=== PATIENT | female | born 1945 | race Caucasian/White ===

== ENCOUNTER 2016-05-11 12:48 | Outpatient (RCR) | payer MEDICARE, OTHER ==
[~2016-05-11 12:48] MED LIST: AGM875T PO; ALPR0.2550 PO; ASP81TEC PO; CLOP75TA PO; CYCL-97 PO; DILT120T11 PO; DILT240C PO; DILT60TA PO; DILT90TA PO; LEVO500T69 PO; METO-272 PO; MTF500T PO; NF-LOVAZAC PO; OXYC-272 PO; RANI300T4 PO; TICA90TA PO
--- OUTSIDE RECORDS SUMMARY | 2016-05-11 12:51 | XMS REPORT | Continuity of Care Document ---
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 If you do not see the information that you expected, contact Release of Information in the Health Information Management department at [phone] for further assistance in locating additional records.[facility] Active Allergies and Adverse Reactions Allergen Noted Date Severity Reactions Comments Codeine 03/03/2012 CHEST TIGHTNESS Lexapro 03/03/2012 HIVES Lipitor 03/03/2012 JOINT PAIN Niaspan Starter Pack 03/03/2012 RASH Tramadol 03/03/2012 NAUSEA AND VOMITING Current Medications Prescription Sig. Disp. Refills Start End Date Status Date diltiazem SA (+) (TAZTIA Take 240 mg by mouth Active XT) 240 mg capsule after meals and at bedtime as needed. ranitidine(+) (ZANTAC) Take 300 mg by mouth Active 300 mg tablet daily. lisinopril (PRINIVIL; Take 20 mg by mouth Active ZESTRIL) 20 mg tablet daily. metoprolol XL (TOPROL XL) Take 25 mg by mouth Active 25 mg tablet daily. prasugrel (EFFIENT) 10 mg Take 10 mg by mouth Active Tab tablet daily. aspirin EC 81 mg tablet Take 81 mg by mouth Active daily. ALPRAZolam (XANAX) 0.5 mg Take 0.5 mg by mouth at Active tablet bedtime as needed. HYDROcodone-acetaminophen Take 1 Tab by mouth every Active (+) (LORTAB) 7.5-500 mg 4 hours as needed. tablet acetaminophen (TYLENOL) Take 500 mg by mouth Active 500 mg tablet every 6 hours as needed. simvastatin (ZOCOR) 20 mg Take 20 mg by mouth at Active tablet bedtime daily. losartan/hydrochlorothiaz Take 100 mg by mouth Active patricia (HYZAAR) 100/12.5 mg daily. tablet 100 mg amLODIPine (NORVASC) 10 Take 10 mg by mouth Active mg tablet daily. bisoprolol/hydrochlorothi Take 0.25 mg by mouth Active azide (ZIAC) 5/6.25 mg daily. tablet 0.25 mg Active Problems Problem Noted Date Difficulty voiding 03/03/2012 Last Assessment & Plan: - Pt empties well, PVR 0 in clinic today. - Will plan for VUDS and Cystoscopy to evaluate voiding dysfunction Renal artery stenosis (HCC) 03/03/2012 Social History Tobacco Use Types Packs/Day Years Used Date Never Assessed Last Filed Vital Signs Vital Sign Reading Time Taken Blood Pressure 152/80 03/03/2012 10:35 AM CDT Pulse 86 03/03/2012 10:35 AM CDT Temperature - - Respiratory Rate - - Height 1.575 m (5' 2") 03/03/2012 10:35 AM CDT Weight 60.328 kg (133 lb) 03/03/2012 10:35 AM CDT Body Mass Index 24.32 03/03/2012 10:35 AM CDT Oxygen Saturation - - Plan of Care Health Maintenance Due Date Last Done Comments Physical (Comprehensive) 1951 Exam Pertussis Vaccine 1955 Tetanus Vaccine 1961 Breast Cancer Screening 1984 Colorectal Cancer 1994 Screening Shingles Vaccine 2004 Osteoporosis Screening 2009 Prevnar/Pneumovax (#1) 2009 Influenza Vaccine 02/27/2016 Results from Last 3 Months Not on file
[2016-05-11 13:10] LABS: BASOPHILS # (AUTO) 0.1 10^3/uL (0.0-0.1); BASOPHILS % (AUTO) 1 % (0-10); EOSINOPHILS # (AUTO) 0.3 10^3/uL (0.0-0.3); EOSINOPHILS % (AUTO) 2 % (0-10); LYMPHOCYTES # (AUTO) 1.7 X 10^3 (1.0-4.0); LYMPHOCYTES % (AUTO) 14 % (12-44); MEAN CORPUSCULAR HEMOGLOBIN 29 PG (25-34); MEAN CORPUSCULAR HGB CONC 33 G/DL (32-36); MEAN CORPUSCULAR VOLUME 90 FL (80-99); MEAN PLATELET VOLUME 10.3 FL (7.4-10.4); MONOCYTES # (AUTO) 0.8 X 10^3 (0.0-1.0); MONOCYTES % (AUTO) 7 % (0-12); NEUTROPHILS # (AUTO) 9.5 X 10^3 (1.8-7.8); NEUTROPHILS % (AUTO) 77 % (42-75); PLATELET COUNT 463 10^3/uL (130-400); RED CELL DISTRIBUTION WIDTH 14.7 % (10.0-14.5); WHITE BLOOD COUNT 12.4 10^3/uL (4.3-11.0)
[2016-05-11 13:35] LABS: ALBUMIN 4.1 G/DL (3.2-4.5); BILIRUBIN,TOTAL 0.3 MG/DL (0.1-1.0); CALCIUM 9.9 MG/DL (8.5-10.1); CREATININE SERUM 1.25 MG/DL (0.60-1.30); POTASSIUM 3.5 MMOL/L (3.6-5.0); TOTAL PROTEIN 7.1 G/DL (6.4-8.2)
[2016-07-24] MEDS ORDERED: HYDR-3812 PO (11:04)
[2016-07-24] MEDS ORDERED: ONDA4TAB11 PO (11:04)
== END 2016-08-09 | disposition home or self-care (01) ==
LOC: ONC 12:48
PROVIDERS: ATTEND Internal Medicine Hematology & Oncology
DX: D47.1 Chronic myeloproliferative disease (principal); I10 Essential (primary) hypertension; I25.10 Atherosclerotic heart disease of native coronary artery without angina pectoris; E11.9 Type 2 diabetes mellitus without complications; E78.5 Hyperlipidemia, unspecified; M79.7 Fibromyalgia; Z48.812 Encounter for surgical aftercare following surgery on the circulatory system; Z87.891 Personal history of nicotine dependence
CPT/HCPCS: 36415; 80053; 82232; 83615; 85025; 99213

== ENCOUNTER 2016-07-24 07:11 | Emergency (ER) | payer MEDICARE, OTHER ==
[~2016-07-24] VITALS: Ht 160 cm; Wt 70.3 kg
--- OUTSIDE RECORDS SUMMARY | 2016-07-24 07:17 | XMS REPORT | Continuity of Care Document ---
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 If you do not see the information that you expected, contact Release of Information in the Health Information Management department at [phone] for further assistance in locating additional records.[facility] Active Allergies and Adverse Reactions Allergen [...]
[2016-07-24] MEDS ORDERED: morphine INJ 10 MG/ML 1ML (SYR OR VIAL) IM STA (08:00)
[2016-07-24] MEDS ORDERED: KETOROLAC 30 MG/ML VIAL IM STA (08:00)
--- NOTE | 2016-07-24 08:18 | ED Hip Pain/Injury ---
General Chief Complaint: Hip/Pelvic Problems Stated Complaint: LEFT HIP PAIN Nursing Triage Note: C/O posterior left hip pain radiating down left leg. Wednesday and Wednesday she was working in the garage. Increased pain started Wed. Source: patient Exam Limitations: no limitations History of Present Illness Time seen by provider: 07:55 Initial Comments Here with report of left hip pain radiating down the left leg. Actually states that it starts in the left low back. Pain started Wednesday. Does admit that she was working on the ground on Wednesday and Wednesday. Doesn't remember a specific injury but does report that the pain started after that. Denies bowel or bladder incontinence. Denies numbness or tingling or legs. She is able to walk but it does hurt quite a bit. She hasn't taken any pain medicine. No recent falls or other significant injury. Timing/Duration: getting worse, other (2 days) Severity: moderate, severe Location: hip (L), pelvis Method of Injury: unknown Modifying Factors: Improves With Immobilization, Worse With Movement Associated Symptoms: No fatigue, No fever, pain radiating to knees trouble walking (pain limited) Allergies and Home Medications Allergies Coded Allergies: Codeine (Unverified Allergy, 03/25/11) Hydrocodone (Unverified Allergy, 09/12/12) atorvastatin calcium (Unverified Allergy, 03/25/11) escitalopram oxalate (Unverified Allergy, 03/25/11) niacin (Unverified Allergy, 03/25/11) simvastatin (Unverified Allergy, 09/12/12) tramadol (Unverified Allergy, 03/25/11) Home Medications Alprazolam 0.25 Mg Tab.rapdis 1 EACH PO NEEDED (Reported) FOR ANXIETY Aspirin 81 Mg Tabec 81 MG PO DAILY (Reported) Clopidogrel Bisulfate 75 Mg Tablet 1 EACH PO DAILY (Reported) Diltiazem Hcl 120 Mg Tablet 240 MG PO BID (Reported) Levofloxacin 500 Mg Tab 5Days 1 EACH PO DAILY (Reported) X 5 DAYS Metformin Hcl 500 Mg Tablet 1 EACH PO BID PRN PRN (Reported) Metoprolol Succinate 50 Mg Tab.sr.24h 50 MG PO BID (Reported) Oxycodone Hcl/Acetaminophen 1 Tab Tablet 1-2 TAB PO Q6H PRN PRN (Reported) Ranitidine Hcl 300 Mg Tablet 150 MG PO DAILY (Reported) Constitutional: see HPINo chills, No fever Respiratory: No cough, No short of breath Cardiovascular: no symptoms reportedNo chest pain, Hx of InterventionNo palpitations Gastrointestinal: No abdominal pain, No nausea, No vomiting Genitourinary: no symptoms reportedNo dysuria, No incontinence, No pain Musculoskeletal: see HPI back pain joint pain muscle painNo muscle weakness Skin: no symptoms reportedNo change in color, No rash Psychiatric/Neurological: No Symptoms Reported All Other Systems Reviewed Negative Unless Noted: Yes Past Nrpbaxa-Bdgcce-Hgnfvh Hx Patient Social History Alcohol Use: Denies Use Recreational Drug Use: No Smoking Status: Never a Smoker Recent Foreign Travel: No Contact w/Someone Who Travel: No Recent Infectious Disease Expo: No Recent Hopitalizations: No Physical Abuse Screen: No Sexual Abuse: No Immunizations Up To Date Tetanus Booster (TDap): Less than 5yrs PED Vaccines UTD: No Date of Pneumonia Vaccine: Sep 26, 2009 Date of Influenza Vaccine: Mar 22, 2012 Surgeries HX Surgeries: Yes (RENAL STENTS, T&A, TREY, HYST, renal stent, LEFT KNEE ARTH , ABCESS ON KIDN) Respiratory Hx Respiratory Disorders: Yes Respiratory Disorders: COPD Cardiovascular Hx Cardiac Disorders: Yes Neurological Hx Neurological Disorders: No Reproductive System Hx Reproductive Disorders: No Sexually Transmitted Disease: No HIV/AIDS: No Female Reproductive Disorders: Denies Genitourinary Hx Genitourinary Disorders: Yes (KIDNEY STONE/STENT IN BOTH RENAL ARTERIES) Gastrointestinal Hx Gastrointestinal Disorders: Yes (DIVERTICULITIS) Gastrointestinal Disorders: Gastroesophageal Reflux Musculoskeletal Hx Musculoskeletal Disorders: Yes (FIBROMYALGIA, CERVICAL STENOSIS) Endocrine Hx Endocrine Disorders: Yes (history of thyroid nodules) Endocrine Disorders: Adrenal Disease, Diabetes, Non-Insulin dep HEENT HX ENT Disorders: No Loss of Vision: Bilateral Hearing Impairment: Hard of Hearing Cancer Hx Cancer: No Psychosocial Hx Psychiatric Problems: No Integumentary HX Skin/Integumentary Disorder: No Blood Transfusions Hx Blood Disorders: Yes (LEUKOCYTOSIS AND THROMBOSYTOSIS) Adverse Reaction to a Blood Tr: No Reviewed Nursing Assessment Reviewed/Agree w Nursing PMH: Yes Family Medical History Significant Family History: No Pertinent Family Hx Physical Exam Vital Signs Vital Sign - Last 12Hours 07/24/16 07:54 Temp 99.1 Pulse 74 Resp 16 B/P 168/66 Pulse Ox 98 O2 Delivery Room Air Capillary Refill : Less Than 3 Seconds General Appearance: No Apparent Distress WD/WN Neck: Full Range of Motion Supple Cardiovascular: Regular Rate, Rhythm No Murmur Respiratory: Lungs Clear Normal Breath Sounds Peripheral Pulses: 2+ Dorsalis Pedis (R), 2+ Left Dors-Pedis (L), 2+ Radial Pulses (R), 2+ Radial Pulses (L) Gastrointestinal: No Pulsatile Mass Non Tender Soft Back: No CVA Tenderness No Vertebral Tenderness Other (tender at the SI joint on the left and to the left hip.) Extremity: Non Tender No Calf Tenderness Pelvis Stable Other (tenderness to the left hip area. Worse with range of motion.) Neurologic/Psychiatric: Alert Oriented x3 No Motor/Sensory Deficits Skin: Normal Color Warm/Dry Progress/Results/Core Measures Results/Orders My Orders Orders-ANDREA MEDINA MD Ketorolac Injection (Toradol Injection) (07/24/16 08:00) Morphine Injection (Morphine Injection (07/24/16 08:00) Pelvis (07/24/16 08:09) Hip, Left, 2 Views (07/24/16 08:09) Lumbar Spine - 2-3 Views (07/24/16 08:09) Ondansetron Injection (Zofran Injectio (07/24/16 10:15) Hydrocodone/Apap 5/325 Tablet (Lortab 5 (07/24/16 10:13) Dexamethasone Pf Injection (Decadron Pf (07/24/16 10:45) Medications Given in ED Current Medications Medications Dose Ordered Sig/Syl Route Start Time Stop Time Status Last Admin Dose Admin Ondansetron HCl 4 mg ONCE ONCE IVP 07/24/16 10:15 07/24/16 10:16 DC 07/24/16 10:40 4 MG Vital Signs/I&O Vital Sign - Last 12Hours 07/24/16 07/24/16 07/24/16 07/24/16 07:54 08:07 08:08 10:35 Temp 99.1 99.1 99.1 99.1 Pulse 74 Resp 16 B/P 168/66 Pulse Ox 98 O2 Delivery Room Air Blood Pressure Mean: 100 Progress Note : Progress Note Seen and evaluated. X-ray lumbar spine, pelvis and left hip. Morphine 5 mg IM and Toradol 30 mg IM ordered. Monitor patient. This did help the pain a little bit. X-rays delayed due to number patients in the department. 1022: X- rays reviewed and no acute findings noted. Hydrocodone 5/325 one tab by mouth given. Zofran 4 mg IV given due to nausea. Decadron 10 mg IV given for sciatica.. Patient does have hydrocodone listed as an allergy but she states that it is nausea. She has very little that she can take for pain control and has history of kidney disease. We will prescribe outpatient hydrocodone, Flexeril and Zofran. Discharged home with return precautions. Patient verbalize understanding instructions and agreement with plan. Diagnostic Imaging Diagonstic Imaging: Xray Plain Films/CT/US/NM/MRI: hip Comments [facility] [place], [place] NAME: FREDO NEWBERRY [facility] REC#: [id number] PT STATUS: REG ER : 1945 PHYSICIAN: ANDREA MEDINA MD ADMIT DATE: 07/24/16/ER Draft Date of Exam:07/24/16 HIP, LEFT, 2 VIEWS Left hip. INDICATION: Hip pain. AP and lateral views were obtained. There is no fracture, dislocation, or acute bony abnormality evident. There is at least moderate degenerative disease involving the hip joint. The degenerative changes have not progressed since the prior exam of 03/25/2011. The soft tissues are unremarkable. IMPRESSION: 1. There is no evidence for an acute bony abnormality. 2. If clinical concern regarding an underlying abnormality persists, then MRI would be recommended for further study. Dictated on workstation # [id number] Dict: 07/24/16920 Trans: 07/24/16923 [id number] Interpreted by: ANIBAL SIMON MD Electronically signed by: Reviewed: Reviewed by Me Diagonstic Imaging: Xray Plain Films/CT/US/NM/MRI: pelvis Comments [facility] [place], [place] NAME: FREDO NEWBERRY [facility] REC#: [id number] PT STATUS: REG ER : 1945 PHYSICIAN: ANDREA MEDINA MD ADMIT DATE: 07/24/16/ER Draft Date of Exam:07/24/16 PELVIS Pelvis at 8:43 a.m. INDICATION: Left hip pain. A single AP view was obtained. There is no fracture, dislocation, or acute bony abnormality evident. There is at least moderate degenerative disease involving the hip joints and the left sacroiliac joint. There is mild degenerative disease of the right sacroiliac joint. The degenerative changes have not progressed since the previous exam of 03/25/2011. The soft tissues are unremarkable. IMPRESSION: 1. There is no evidence for an acute bony abnormality. 2. If clinical concern regarding an underlying abnormality persists and further imaging is desired, then MRI would be recommended. Dictated on workstation # [id number] Dict: 07/24/16 0847 Trans: 07/24/16 0852 [id number] Interpreted by: ANIBAL SIMON MD Electronically signed by: Reviewed: Reviewed by Me Diagonstic Imaging: Xray Plain Films/CT/US/NM/MRI: other (lumbar spine) Comments [facility] [place], [place] NAME: FREDO NEWBERRY [facility] REC#: [id number] PT STATUS: REG ER : 1945 PHYSICIAN: ANDREA MEDINA MD ADMIT DATE: 07/24/16/ER Draft Date of Exam:07/24/16 LUMBAR SPINE - 2-3 VIEWS EXAM: Lumbar spine. INDICATION: Back pain, left hip pain. FINDINGS: AP, lateral and spot lateral views were obtained. The lateral view shows the vertebral heights and alignment to be within normal limits and similar to the prior exam of 12/18/10. The intervertebral spaces are fairly well-maintained. There is no fracture or acute bony abnormality evident. There is mild symmetrical sclerosis of the sacroiliac joints. There is no sign of a paraspinal mass. In the interval since the prior study, the patient has had stents placed in both renal arteries. The surgical clips in the right upper quadrant seen previously are again evident and no different. IMPRESSION: 1. There is no is for an acute bony abnormality. Overall, there has been no significant change since the prior exam. 2. If there is clinical concern regarding spinal stenosis or nerve root encroachment, then MRI would be recommended for further study. 3. There has been interval insertion of stents of both renal arteries. Dictated on workstation # [id number] Dict: 07/24/16 0913 Trans: 07/24/16 1020 [facility] [id number] Interpreted by: ANIBAL SIMON MD Electronically signed by: Reviewed: Reviewed by Me Departure Impression Impression: Primary Impression: Sciatica, left side Disposition: HOME, SELF-CARE Condition: Stable Departure-Patient Inst. Referrals: ROBYN MEZA MD (PCP/Family) Primary Care Physician CHARMAINE SKAGGS MD Patient Instructions: Sciatica (DC) Add. Discharge Instructions: All discharge instructions reviewed with patient and/or family. Voiced understanding. Take medications as directed. Drink plenty of fluids. Follow-up with your Dr. in 2-3 days for recheck and further evaluation. You may also follow up with Dr. Smith as needed. Return for worse pain, fever, vomiting, weakness, breathing problems or other concerns as needed. Scripts Ondansetron (Ondansetron Odt)4 Mg Tab.rapdis4 Mg PO Q6H PRN NAUSEA/VOMITING #8 TAB Prov:ANDREA MEDINA MD 07/24/16 Hydrocodone/Acetaminophen (Hydrocodon -Acetaminophen 5-325)1 Each Tablet1-2 Each PO Q6H PRN PAIN #15 TAB Prov:ANDREA MEDINA MD 07/24/16 ANDREA MEDINA MD Jul 24, 2016 08:18
--- NOTE | 2016-07-24 08:52 | Diagnostic Imaging Report ---
Pelvis at 8:43 a.m. INDICATION: Left hip pain. A single AP view was obtained. There is no fracture, dislocation, or acute bony abnormality evident. There is at least moderate degenerative disease involving the hip joints and the left sacroiliac joint. There is mild degenerative disease of the right sacroiliac joint. The degenerative changes have not progressed since the previous exam of 03/25/2011. The soft tissues are unremarkable. IMPRESSION: 1. There is no evidence for an acute bony abnormality. 2. If clinical concern regarding an underlying abnormality persists and further imaging is desired, then MRI would be recommended. Dictated by: Dictated on workstation # [id number]
--- NOTE | 2016-07-24 09:25 | Diagnostic Imaging Report ---
Left hip. INDICATION: Hip pain. AP and lateral views were obtained. There is no fracture, dislocation, or acute bony abnormality evident. There is at least moderate degenerative disease involving the hip joint. The degenerative changes have not progressed since the prior exam of 03/25/2011. The soft tissues are unremarkable. IMPRESSION: 1. There is no evidence for an acute bony abnormality. 2. If clinical concern regarding an underlying abnormality persists, then MRI would be recommended for further study. Dictated by: Dictated on workstation # [id number]
[2016-07-24] MEDS ORDERED: HYDROcodone/APAP 5 MG/325 MG (LORTAB) TAB PO STA (10:13)
[2016-07-24] MEDS ORDERED: ONDANSETRON 4 MG/2 ML (SDV) Z0FRAN IVP ONE (10:15)
--- NOTE | 2016-07-24 10:20 | Diagnostic Imaging Report ---
EXAM: Lumbar spine. INDICATION: Back pain, left hip pain. FINDINGS: AP, lateral and spot lateral views were obtained. The lateral view shows the vertebral heights and alignment to be within normal limits and similar to the prior exam of 12/18/10. The intervertebral spaces are fairly well-maintained. There is no fracture or acute bony abnormality evident. There is mild symmetrical sclerosis of the sacroiliac joints. There is no sign of a paraspinal mass. In the interval since the prior study, the patient has had stents placed in both renal arteries. The surgical clips in the right upper quadrant seen previously are again evident and no different. IMPRESSION: 1. There is no is for an acute bony abnormality. Overall, there has been no significant change since the prior exam. 2. If there is clinical concern regarding spinal stenosis or nerve root encroachment, then MRI would be recommended for further study. 3. There has been interval insertion of stents into the renal arteries. Dictated by: Dictated on workstation # [id number]
[2016-07-24] MEDS ORDERED: DEXAMETHASONE PF 10 MG/ML (DECADRON) VIAL IV STA (10:45)
[2016-07-24] MEDS ORDERED: HYDR-3812 PO (11:04)
[2016-07-24] MEDS ORDERED: ONDA4TAB11 PO (11:04)
[2016-07-24] MEDS ORDERED: fentaNYL INJECTION 100 MCG/2 ML AMP IVP ONE (11:30)
[2016-07-24 11:37] VITALS: BP 153/70
== END 2016-07-24 11:37 | disposition home or self-care (01) ==
LOC: EDUNIT# 07:11 → ER 07:13
DX: M54.32 Sciatica, left side (principal); E11.9 Type 2 diabetes mellitus without complications; J44.9 Chronic obstructive pulmonary disease, unspecified; Z79.84 Long term (current) use of oral hypoglycemic drugs; Z79.899 Other long term (current) drug therapy; Z96.0 Presence of urogenital implants
CPT/HCPCS: 72100; 72170; 73502; 96372; 96374; 96375

== ENCOUNTER 2016-12-25 13:49 | Outpatient (RCR) | payer MEDICARE, OTHER ==
[2016-10-07 14:28] LABS: BASOPHILS # (AUTO) 0.1 10^3/uL (0.0-0.1); BASOPHILS % (AUTO) 1 % (0-10); EOSINOPHILS # (AUTO) 0.4 10^3/uL (0.0-0.3); EOSINOPHILS % (AUTO) 3 % (0-10); LYMPHOCYTES # (AUTO) 2.1 X 10^3 (1.0-4.0); LYMPHOCYTES % (AUTO) 16 % (12-44); MEAN CORPUSCULAR HEMOGLOBIN 29 PG (25-34); MEAN CORPUSCULAR HGB CONC 31 G/DL (32-36); MEAN CORPUSCULAR VOLUME 92 FL (80-99); MEAN PLATELET VOLUME 9.3 FL (7.4-10.4); MONOCYTES # (AUTO) 0.8 X 10^3 (0.0-1.0); MONOCYTES % (AUTO) 6 % (0-12); NEUTROPHILS # (AUTO) 9.7 X 10^3 (1.8-7.8); NEUTROPHILS % (AUTO) 74 % (42-75); PLATELET COUNT 523 10^3/uL (130-400); RED BLOOD COUNT 3.52 10^6/uL (4.35-5.85); RED CELL DISTRIBUTION WIDTH 16.1 % (10.0-14.5)
[2016-10-07 15:36] LABS: ALBUMIN 4.1 G/DL (3.2-4.5); BILIRUBIN,TOTAL 0.5 MG/DL (0.1-1.0); CREATININE SERUM 1.67 MG/DL (0.60-1.30); POTASSIUM 3.5 MMOL/L (3.6-5.0); TOTAL PROTEIN 7.1 G/DL (6.4-8.2)
[~2016-12-25 13:49] MED LIST changes: +HYDR-3812 PO; +ONDA4TAB11 PO
[2016-12-25 14:04] LABS: BASOPHILS # (AUTO) 0.1 10^3/uL (0.0-0.1); BASOPHILS % (AUTO) 1 % (0-10); EOSINOPHILS # (AUTO) 0.3 10^3/uL (0.0-0.3); EOSINOPHILS % (AUTO) 3 % (0-10); LYMPHOCYTES # (AUTO) 2.3 X 10^3 (1.0-4.0); LYMPHOCYTES % (AUTO) 17 % (12-44); MEAN CORPUSCULAR HEMOGLOBIN 29 PG (25-34); MEAN CORPUSCULAR HGB CONC 32 G/DL (32-36); MEAN CORPUSCULAR VOLUME 90 FL (80-99); MEAN PLATELET VOLUME 9.6 FL (7.4-10.4); MONOCYTES # (AUTO) 0.9 X 10^3 (0.0-1.0); MONOCYTES % (AUTO) 7 % (0-12); NEUTROPHILS # (AUTO) 9.9 X 10^3 (1.8-7.8); NEUTROPHILS % (AUTO) 73 % (42-75); PLATELET COUNT 544 10^3/uL (130-400); RED BLOOD COUNT 4.14 10^6/uL (4.35-5.85); WHITE BLOOD COUNT 13.5 10^3/uL (4.3-11.0)
[2016-12-25 14:32] LABS: ALBUMIN 4.2 GM/DL (3.2-4.5); BILIRUBIN,TOTAL 0.3 MG/DL (0.1-1.0); CALCIUM 10.6 MG/DL (8.5-10.1); CREATININE SERUM 1.48 MG/DL (0.60-1.30); POTASSIUM 3.8 MMOL/L (3.6-5.0); TOTAL PROTEIN 7.8 GM/DL (6.4-8.2)
== END 2017-01-05 | disposition home or self-care (01) ==
LOC: ONC 13:49
PROVIDERS: ATTEND Internal Medicine Hematology & Oncology
DX: D47.1 Chronic myeloproliferative disease (principal); I10 Essential (primary) hypertension; I25.10 Atherosclerotic heart disease of native coronary artery without angina pectoris; E11.9 Type 2 diabetes mellitus without complications; E78.5 Hyperlipidemia, unspecified; M79.7 Fibromyalgia; Z48.812 Encounter for surgical aftercare following surgery on the circulatory system; Z87.891 Personal history of nicotine dependence
CPT/HCPCS: 36415; 80053; 82232; 82728; 83540; 83615; 85025; 99213

== ENCOUNTER 2017-01-06 13:57 | Outpatient (RCR) | payer MEDICARE, OTHER | END 2017-02-15 10:53 | disposition home or self-care (01) | LOC: ONC 13:57 | PROVIDERS: ATTEND Internal Medicine Hematology & Oncology | DX: D47.1 Chronic myeloproliferative disease (principal); I10 Essential (primary) hypertension; I25.10 Atherosclerotic heart disease of native coronary artery without angina pectoris; E11.9 Type 2 diabetes mellitus without complications; E78.5 Hyperlipidemia, unspecified; M79.7 Fibromyalgia; Z48.812 Encounter for surgical aftercare following surgery on the circulatory system; Z87.891 Personal history of nicotine dependence | CPT/HCPCS: 99213 ==

== ENCOUNTER → 2017-02-15 | Outpatient (CLI) | payer MEDICARE, OTHER ==
--- NOTE | 2017-02-15 10:59 | Diagnostic Imaging Report ---
CLINICAL INDICATION: Patient with chronic cervical spine pain and history of cervical spine surgery in the past. EXAM: MRI of the cervical spine performed without IV contrast. Sequences include sagittal T2, sagittal T1, sagittal T2 fat-sat, and axial T2. COMPARISON: CT scan of the neck soft tissue with contrast dated 11/21/2014. FINDINGS: Again seen C5-C7 anterior cervical interbody fusion with solid bony fusion across these levels. There is no fluid collection or significant abnormality in the postop region seen. Limited visualization of the posterior fossa shows no significant abnormality. Cervical spinal cord has normal anatomic appearance and no abnormal signal. Cervical spine has normal alignment with no acute fracture or dislocation. There is a small amount of Modic type I degenerative signal changes involving the C4-C5 endplates. C1-C2: There are degenerative spurs involving the atlantoodontoid interval. Otherwise, this level is unremarkable. C2-C3: Unremarkable. C3-C4: There is a small posterior disc protrusion/herniation. There is bilateral facet arthropathy and ligamentum flavum buckling. There is moderate central canal narrowing and mild right neural foramen narrowing. C4-C5: There is a diffuse disc bulge with mild facet arthropathy and ligamentum flavum buckling. There is mild central canal narrowing. There is no significant neural foramen narrowing. C5-C6: There is mild facet arthropathy and mild ligamentum flavum buckling. There is at least moderate right neural foramen narrowing and mild left neural foramen narrowing due to bony prominence. There is mild central canal narrowing. C6-C7: There is no significant central spinal canal or neural foramen narrowing. C7-T1: Unremarkable. IMPRESSION: 1: Stable C5-C7 anterior cervical interbody fusion with no MRI evidence of complication. 2: There is mild to moderate cervical spine degenerative disease which is worse at the C3-C4, C4-C5, and C5-C6 levels. This is described in detail above. Dictated by: Dictated on workstation # [id number]
== END ==
LOC: RAD 09:40
PROVIDERS: ATTEND Orthopaedic Surgery Orthopaedic Surgery of the Spine
DX: M47.812 Spondylosis without myelopathy or radiculopathy, cervical region (principal); M50.31 Other cervical disc degeneration, high cervical region; Z98.1 Arthrodesis status
CPT/HCPCS: 72141

== ENCOUNTER → 2017-03-12 | Outpatient (CLI) | payer MEDICARE, OTHER ==
--- NOTE | 2017-03-12 10:53 | Diagnostic Imaging Report ---
PROCEDURE: CT cervical spine without contrast. TECHNIQUE: Multiple contiguous axial images were obtained through the cervical spine without the use of intravenous contrast. Sagittal and coronal reformations were then performed. INDICATION: Neck pain. FINDINGS: There is anterior fusion hardware involving C5, C6 and C7 with evidence of prior C6 corpectomy and there is solid osseous fusion between these vertebral bodies. The facet joints on the right side at C5/6 and C6/7 appear to be fused as well. The left facet joints at these levels are not fused. There is overall straightening of the lordotic curvature. The posterior spinal line alignment is satisfactory. The vertebral body heights outside the fused levels appear preserved. Also, disc heights are preserved. Degenerative changes of the facet joints are noted. There is no remaining significant posterior osteophytes projecting into the spinal canal at any level with no obvious spinal canal stenosis based on CT evaluation. This is performed however without intrathecal contrast which limits evaluation. There is uncovertebral joint hypertrophy at multiple levels as well. This results in stenosis moderate on the right and mild on the left at C5/6, and mild stenosis only on the left side at C6/7 level. The lung apices demonstrate pleural thickening. The soft tissues in the prevertebral region of the cervical spine appear grossly unremarkable. IMPRESSION: There is solid osseous fusion of vertebral bodies C4 through C7. There is also osseous fusion of the right facet joints at C5/C6 and C6/7 levels. Dictated on workstation # [id number]
== END ==
LOC: RAD 09:37
PROVIDERS: ATTEND Orthopaedic Surgery Orthopaedic Surgery of the Spine
DX: M54.2 Cervicalgia (principal)
CPT/HCPCS: 72125

== ENCOUNTER 2017-03-24 13:30 | Outpatient (RCR) | payer MEDICARE, OTHER ==
[2017-02-15 12:07] LABS: BASOPHILS # (AUTO) 0.1 10^3/uL (0.0-0.1); BASOPHILS % (AUTO) 1 % (0-10); EOSINOPHILS # (AUTO) 0.5 10^3/uL (0.0-0.3); EOSINOPHILS % (AUTO) 3 % (0-10); LYMPHOCYTES # (AUTO) 2.3 X 10^3 (1.0-4.0); LYMPHOCYTES % (AUTO) 17 % (12-44); MEAN CORPUSCULAR HEMOGLOBIN 29 PG (25-34); MEAN CORPUSCULAR HGB CONC 32 G/DL (32-36); MEAN CORPUSCULAR VOLUME 93 FL (80-99); MEAN PLATELET VOLUME 10.1 FL (7.4-10.4); MONOCYTES # (AUTO) 0.9 X 10^3 (0.0-1.0); MONOCYTES % (AUTO) 7 % (0-12); NEUTROPHILS # (AUTO) 10.2 X 10^3 (1.8-7.8); NEUTROPHILS % (AUTO) 73 % (42-75); PLATELET COUNT 478 10^3/uL (130-400); RED BLOOD COUNT 4.15 10^6/uL (4.35-5.85); RED CELL DISTRIBUTION WIDTH 16.4 % (10.0-14.5)
[2017-02-15 12:36] LABS: ALBUMIN 4.3 GM/DL (3.2-4.5); BILIRUBIN,TOTAL 0.5 MG/DL (0.1-1.0); CALCIUM 10.3 MG/DL (8.5-10.1); CREATININE SERUM 1.51 MG/DL (0.60-1.30); POTASSIUM 4.1 MMOL/L (3.6-5.0); TOTAL PROTEIN 7.3 GM/DL (6.4-8.2)
[2017-03-24 14:12] LABS: BASOPHILS # (AUTO) 0.1 10^3/uL (0.0-0.1); BASOPHILS % (AUTO) 1 % (0-10); EOSINOPHILS # (AUTO) 0.4 10^3/uL (0.0-0.3); EOSINOPHILS % (AUTO) 3 % (0-10); LYMPHOCYTES % (AUTO) 15 % (12-44); MEAN CORPUSCULAR HEMOGLOBIN 30 PG (25-34); MEAN CORPUSCULAR HGB CONC 32 G/DL (32-36); MEAN CORPUSCULAR VOLUME 93 FL (80-99); MONOCYTES # (AUTO) 0.8 X 10^3 (0.0-1.0); MONOCYTES % (AUTO) 6 % (0-12); NEUTROPHILS # (AUTO) 10.4 X 10^3 (1.8-7.8); NEUTROPHILS % (AUTO) 75 % (42-75); PLATELET COUNT 523 10^3/uL (130-400); RED BLOOD COUNT 4.22 10^6/uL (4.35-5.85); RED CELL DISTRIBUTION WIDTH 15.1 % (10.0-14.5); WHITE BLOOD COUNT 13.7 10^3/uL (4.3-11.0)
[2017-03-24 14:29] LABS: ALBUMIN 4.4 GM/DL (3.2-4.5); BILIRUBIN,TOTAL 0.4 MG/DL (0.1-1.0); CALCIUM 10.2 MG/DL (8.5-10.1); CREATININE SERUM 1.54 MG/DL (0.60-1.30); POTASSIUM 4.1 MMOL/L (3.6-5.0); TOTAL PROTEIN 7.8 GM/DL (6.4-8.2)
== END 2017-03-27 | disposition home or self-care (01) ==
LOC: ONC 13:30
PROVIDERS: ATTEND Internal Medicine Hematology & Oncology
DX: D47.1 Chronic myeloproliferative disease (principal); I10 Essential (primary) hypertension; I25.10 Atherosclerotic heart disease of native coronary artery without angina pectoris; E11.9 Type 2 diabetes mellitus without complications; E78.5 Hyperlipidemia, unspecified; M79.7 Fibromyalgia; Z48.812 Encounter for surgical aftercare following surgery on the circulatory system; Z87.891 Personal history of nicotine dependence
CPT/HCPCS: 36415; 80053; 82728; 83540; 85025

== ENCOUNTER 2017-03-31 13:29 | Outpatient (RCR) | payer MEDICARE, OTHER ==
[~2017-03-31 13:29] MED LIST changes: +ACHD5005 PO; -HYDR-3812 PO
== END 2017-06-29 | disposition home or self-care (01) ==
LOC: ONC 13:29
PROVIDERS: ATTEND Internal Medicine Hematology & Oncology
DX: D47.1 Chronic myeloproliferative disease (principal); I10 Essential (primary) hypertension; I25.10 Atherosclerotic heart disease of native coronary artery without angina pectoris; E11.9 Type 2 diabetes mellitus without complications; E78.5 Hyperlipidemia, unspecified; M79.7 Fibromyalgia; Z48.812 Encounter for surgical aftercare following surgery on the circulatory system; Z87.891 Personal history of nicotine dependence
CPT/HCPCS: 99213

== ENCOUNTER 2017-06-01 14:30 | Outpatient (RCR) | payer MEDICARE, OTHER ==
[2017-08-09] MEDS ORDERED: COLC0.6C3 PO (13:22)
== END 2017-08-08 | disposition home or self-care (01) ==
LOC: PULM 14:30
PROVIDERS: ATTEND Nurse Practitioner Family
DX: J44.9 Chronic obstructive pulmonary disease, unspecified (principal); R06.00 Dyspnea, unspecified; J30.2 Other seasonal allergic rhinitis; G47.30 Sleep apnea, unspecified
CPT/HCPCS: 99211

== ENCOUNTER → 2017-07-14 | Outpatient (CLI) | payer MEDICARE, OTHER ==
--- NOTE | 2017-07-14 19:27 | Diagnostic Imaging Report ---
Digital mammogram bilateral diagnostic. INDICATION: Right breast lump. This study was compared to the prior exams from 05/19/16 to 12/18/10. At this time, the patient does complain of a lump in the 11-12 o'clock position of the right breast. The current study was also evaluated with a Computer Aided Detection (CAD) system. FINDINGS: A marker was placed over the area of concern. There is no primary or secondary sign of malignancy in this region. I would recommend that ultrasound be performed for further study, however. The overall appearance of the breasts has not changed significantly otherwise. There are scattered fibroglandular densities in both breasts which could obscure a lesion. There is no primary or secondary sign of malignancy noted. IMPRESSION: There is no evidence of malignancy. Ultrasound would be recommended for further evaluation of the palpable abnormality in the 11-12 o'clock position of the right breast. ACR BI-RADS Category 0: Incomplete. (Needs additional imaging evaluation). Result letter will be mailed to the patient. Note: At least 10% of breast cancer is not imaged by mammography. Dictated by: Dictated on workstation # [id number]
--- NOTE | 2017-07-14 20:31 | Diagnostic Imaging Report ---
INDICATION: Right breast mass. EXAMINATION: Ultrasound of the right breast. FINDINGS: By history, the patient has a palpable mass in the upper-outer aspect of the right breast. The diagnostic mammogram performed earlier today failed to show any sign of malignancy in this area. On this study, there is no discrete solid or cystic mass in the region of the patient's palpable abnormality to suggest malignancy. I suspect that the palpable abnormality in question is related to fibroglandular tissue alone. However, if clinical concern regarding an underlying abnormality persists, then biopsy should still be considered. IMPRESSION: There is no evidence for malignancy. Clinical follow up is recommended. ACR BI-RADS Category 1: Negative. Result letter will be mailed to the patient. Note: At least 10% of breast cancer is not imaged by mammography. Dictated by: Dictated on workstation # [id number]
== END ==
LOC: RAD 13:15
PROVIDERS: ATTEND Nurse Practitioner Adult Health
DX: N63.10 Unspecified lump in the right breast, unspecified quadrant (principal)
CPT/HCPCS: 77066

== ENCOUNTER 2017-08-09 10:43 | Emergency (ER) | payer MEDICARE, OTHER ==
[~2017-08-09] VITALS: Ht 157.5 cm; Wt 70.3 kg
--- NOTE | 2017-08-09 12:24 | Diagnostic Imaging Report ---
INDICATION: Pain and swelling to the right foot. TIME OF EXAM: 12:30 p.m. FINDINGS: Three views of the right foot were obtained. The phalanges appear intact. There is questionable periosteal reaction along the second and third metatarsals, perhaps owing to stress reaction. A discrete fracture line is not seen. The midfoot is unremarkable. There is a large plantar calcaneal spur. IMPRESSION: Questionable stress reaction along the second and third metatarsals. No other significant abnormality is seen. Dictated by: Dictated on workstation # [id number]
--- NOTE | 2017-08-09 12:48 | ED Lower Extremity ---
General Chief Complaint: Lower Extremity Stated Complaint: RIGHT FOOT PAIN/SWELLING Nursing Triage Note: R FOOT PAIN SINCE YESTERDAY. REPORTS ITS SWOLLEN AND PAINFUL IN BIG TOE Nursing Sepsis Screen: No Definite Risk Source: patient, spouse Exam Limitations: no limitations History of Present Illness Date Seen by Provider: Aug 09, 2017 Time Seen by Provider: 12:47 Initial Comments 72-year-old female patient presents to the emergency department for complaints of right foot pain beginning yesterday. Reports right big toe is swollen, painful, and red. Denies fever or chills. Denies previous history of gout or similar symptoms. Patient states she does have some hydrocodone at home, but does not like taking the medications she has not used any. Patient denies having an allergy to hydrocodone. Location Injury Occurred: denies known injury Onset: yesterday Pain/Injury Location: right 1st toe Method of Injury: unknown Modifying Factors: Improves With Immobilization, Worse With Movement Allergies and Home Medications Allergies Coded Allergies: atorvastatin calcium (Unverified Allergy, Unknown, 07/27/16) codeine (Unverified Allergy, Unknown, 07/27/16) escitalopram oxalate (Unverified Allergy, Unknown, 07/27/16) hydrocodone (Unverified Allergy, Unknown, 07/27/16) niacin (Unverified Allergy, Unknown, 07/27/16) simvastatin (Unverified Allergy, Unknown, 07/27/16) tramadol (Unverified Allergy, Unknown, 07/27/16) Home Medications Alprazolam 0.25 Mg Tab.rapdis, 1 EACH PO NEEDED, (Reported) FOR ANXIETY Aspirin 81 Mg Tabec, 81 MG PO DAILY, (Reported) Clopidogrel Bisulfate 75 Mg Tablet, 1 EACH PO DAILY, (Reported) Colchicine 0.6 Mg Capsule, 0.6 MG PO UD, #3 Ref 0 1.2 mg po initially followed by 0.6 mg 1 hour later. Prescribed by: CLAUDIA SANCHEZ on 08/09/17 1322 Diltiazem Hcl 120 Mg Tablet, 240 MG PO BID, (Reported) Hydrocodone Bit/Acetaminophen 1 Each Tablet, 1-2 EACH PO Q6H PRN for PAIN, #15 Prescribed by: ANDREA MEDINA on 07/24/16 1104 Levofloxacin 500 Mg Tab, 1 EACH PO DAILY for 5 Days, (Reported) X 5 DAYS Metformin Hcl 500 Mg Tablet, 1 EACH PO BID PRN, (Reported) Metoprolol Succinate 50 Mg Tab.sr.24h, 50 MG PO BID, (Reported) Ondansetron 4 Mg Tab.rapdis, 4 MG PO Q6H PRN for NAUSEA/VOMITING, #8 Prescribed by: ANDREA MEDINA on 07/24/16 1104 Oxycodone Hcl/Acetaminophen 1 Tab Tablet, 1-2 TAB PO Q6H PRN, Ref 0 (Reported) Ranitidine Hcl 300 Mg Tablet, 150 MG PO DAILY, (Reported) Constitutional: no symptoms reported Respiratory: no symptoms reported Cardiovascular: no symptoms reported Musculoskeletal: see HPI, joint pain (right first toe pain), joint swelling ( right first toe) Skin: see HPI, change in color (erythema of the right first toe) Psychiatric/Neurological: No Symptoms Reported All Other Systems Reviewed Negative Unless Noted: Yes (Negative excepted noted.) Past Qyxpezy-Tkchag-Qdsang Hx Patient Social History Alcohol Use: Denies Use Recreational Drug Use: No Smoking Status: Former Smoker Former Smoker, Quit: Aug 15, 2012 Recent Foreign Travel: No Contact w/Someone Who Travel: No Recent Infectious Disease Expo: No Recent Hopitalizations: No Immunizations Up To Date Tetanus Booster (TDap): Less than 5yrs PED Vaccines UTD: No Date of Pneumonia Vaccine: Sep 26, 2009 Date of Influenza Vaccine: Mar 22, 2012 Surgeries History of Surgeries: Yes (RENAL STENTS ,LEFT KNEE ARTH, ABCESS ON KIDN, RECTOCILE, BLADDER SLING) Surgeries: Adenoidectomy, Bladder Surgery, Coronary Stent, Gallbladder, Hysterectomy, Orthopedic Respiratory History of Respiratory Disorde: Yes Respiratory Disorders: COPD Cardiovascular History of Cardiac Disorders: Yes Cardiac Disorders: Coronary Artery Disease, High Cholesterol, Hypertension Neurological History of Neurological Disord: No Reproductive System Hx Reproductive Disorders: No Sexually Transmitted Disease: No HIV/AIDS: No Female Reproductive Disorders: Denies Genitourinary History of Genitourinary Disor: Yes (CHRONIC KIDNEY DZ) Gastrointestinal History of Gastrointestinal Di: Yes (DIVERTICULITIS) Gastrointestinal Disorders: Gastroesophageal Reflux, Polyps Musculoskeletal History of Musculoskeletal Dis: Yes (, CERVICAL STENOSIS) Musculoskeletal Disorders: Fibromyalgia Endocrine History of Endocrine Disorders: Yes (history of thyroid nodules) Endocrine Disorders: Adrenal Disease, Diabetes, Non-Insulin dep HEENT Loss of Vision: Bilateral Hearing Impairment: Hard of Hearing Cancer History of Cancer: No Psychosocial History of Psychiatric Problem: No Integumentary History of Skin or Integumenta: No Blood Transfusions History of Blood Disorders: Yes (LEUKOCYTOSIS AND THROMBOSYTOSIS) Adverse Reaction to a Blood Tr: No Reviewed Nursing Assessment Reviewed/Agree w Nursing PMH: Yes Family Medical History Significant Family History: No Pertinent Family Hx Physical Exam Vital Signs Vital Signs - First Documented 08/09/17 11:31 Temp 97.4 Pulse 73 Resp 20 B/P (MAP) 163/80 (107) Pulse Ox 96 Capillary Refill : Less Than 3 Seconds General Appearance: WD/WN, no apparent distress Cardiovascular: normal peripheral pulses, no edema Legs: bilateral leg non-tender, bilateral leg normal inspection, bilateral leg normal range of motion, bilateral leg no evidence of injury Knees: bilateral knee non-tender, bilateral knee normal inspection, bilateral knee normal range of motion, bilateral knee no evidence of injury Ankles: bilateral ankle non-tender, bilateral ankle normal inspection, bilateral ankle normal range of motion, bilateral ankle no evidence of injury Feet: left foot non-tender, left foot normal inspection, left foot normal range of motion, bilateral foot no evidence of injury, right foot bone tenderness (first MTP joint), right foot limited range of motion, right foot pain, right foot soft tissue tenderness (first MTP joint), right foot swelling ( right first MTP joint), right foot other (faint erythema and warmth of the first right MTP joint) Neurologic/Tendon: normal sensation, normal motor functions, normal tendon functions, responds to pain, no evidence tendon injury Neurologic/Psychiatric: no motor/sensory deficits, alert, normal mood/affect, oriented x 3 Skin: normal color, warm/dry, other (faint erythema and warmth of the right first MTP joint) Progress/Results/Core Measures Results/Orders My Orders Orders - CLAUDIA SANCHEZ Foot, Right, 3 View (08/09/17 11:57) Vital Signs/I&O Vital Sign - Last 12Hours 08/09/17 08/09/17 11:31 13:31 Temp 97.4 97.4 Pulse 73 73 Resp 20 20 B/P (MAP) 163/80 (107) Pulse Ox 96 96 Blood Pressure Mean: 107 Diagnostic Imaging Diagonstic Imaging: Xray Plain Films/CT/US/NM/MRI: other (rt foot) Comments FOOT, RIGHT, 3 VIEW INDICATION: Pain and swelling to the right foot. TIME OF EXAM: 12:30 p.m. FINDINGS: Three views of the right foot were obtained. The phalanges appear intact. There is questionable periosteal reaction along the second and third metatarsals, perhaps owing to stress reaction. A discrete fracture line is not seen. The midfoot is unremarkable. There is a large plantar calcaneal spur. IMPRESSION: Questionable stress reaction along the second and third metatarsals. No other significant abnormality is seen. Dictated on workstation # [id number] Reviewed: Reviewed by Me (radiology report reviewed by me) Departure Impression Impression: Primary Impression: Gout Qualified Codes: M10.9 - Gout, unspecified Disposition: HOME, SELF-CARE Condition: Improved Departure-Patient Inst. Decision time for Depature: 13:20 Referrals: [facility] (PCP/Family) Primary Care Physician Patient Instructions: Gout (DC) Add. Discharge Instructions: All discharge instructions reviewed with patient and/or family. Voiced understanding. Medications as instructed. Continue usual home medications including the hydrocodone. Elevate the left foot on pillows. Review the additional information printed on gout. Follow-up with Dr. Knox as previously scheduled on August 20. Return to the emergency department for worsened symptoms or any other concerns. Scripts Colchicine (Colchicine) 0.6 Mg Capsule 0.6 MG PO UD, #3 CAP 0 Refills 1.2 mg po initially followed by 0.6 mg 1 hour later. Prov: CLAUDIA SANCHEZ 08/09/17 CLAUDIA SANCHEZ Aug 09, 2017 12:48
[2017-08-09] MEDS ORDERED: COLC0.6C3 PO (13:22)
[2017-08-09 13:31] VITALS: BP 163/80
== END 2017-08-09 13:31 | disposition home or self-care (01) ==
LOC: EDUNIT# 10:43 → ER 10:45
DX: M10.9 Gout, unspecified (principal); E11.9 Type 2 diabetes mellitus without complications; K21.9 Gastro-esophageal reflux disease without esophagitis; I25.10 Atherosclerotic heart disease of native coronary artery without angina pectoris; E78.00 Pure hypercholesterolemia, unspecified; I10 Essential (primary) hypertension; J44.9 Chronic obstructive pulmonary disease, unspecified; Z79.84 Long term (current) use of oral hypoglycemic drugs; Z90.710 Acquired absence of both cervix and uterus; Z95.5 Presence of coronary angioplasty implant and graft; Z87.891 Personal history of nicotine dependence; Z79.82 Long term (current) use of aspirin; Z79.4 Long term (current) use of insulin; Z88.5 Allergy status to narcotic agent; Z88.1 Allergy status to other antibiotic agents; Z88.8 Allergy status to other drugs, medicaments and biological substances
CPT/HCPCS: 73630; 99283

== ENCOUNTER 2017-08-25 12:52 | Outpatient (RCR) | payer MEDICARE, OTHER ==
[2017-07-02 14:16] LABS: BASOPHILS % (AUTO) 1 % (0-10); EOSINOPHILS % (AUTO) 3 % (0-10); HEMATOCRIT 35 % (35-52); HEMOGLOBIN 12.6 G/DL (11.5-16.0); LYMPHOCYTES % (AUTO) 15 % (12-44); MEAN CORPUSCULAR HEMOGLOBIN 30 PG (25-34); MEAN CORPUSCULAR HGB CONC 36 G/DL (32-36); MEAN CORPUSCULAR VOLUME 83 FL (80-99); MEAN PLATELET VOLUME 9.3 FL (7.4-10.4); MONOCYTES % (AUTO) 6 % (0-12); NEUTROPHILS % (AUTO) 76 % (42-75); PLATELET COUNT 468 10^3/uL (130-400); RED BLOOD COUNT 4.15 10^6/uL (4.35-5.85); RED CELL DISTRIBUTION WIDTH 14.4 % (10.0-14.5); WHITE BLOOD COUNT 15.8 10^3/uL (4.3-11.0)
[2017-07-02 14:17] LABS: BASOPHILS # (AUTO) 0.1 10^3/uL (0.0-0.1); EOSINOPHILS # (AUTO) 0.4 10^3/uL (0.0-0.3); LYMPHOCYTES # (AUTO) 2.4 X 10^3 (1.0-4.0); MONOCYTES # (AUTO) 0.9 X 10^3 (0.0-1.0); NEUTROPHILS # (AUTO) 12.1 X 10^3 (1.8-7.8)
[2017-07-02 14:39] LABS: ALBUMIN 4.2 GM/DL (3.2-4.5); BILIRUBIN,TOTAL 0.3 MG/DL (0.1-1.0); CALCIUM 10.3 MG/DL (8.5-10.1); CREATININE SERUM 1.43 MG/DL (0.60-1.30); POTASSIUM 3.7 MMOL/L (3.6-5.0); TOTAL PROTEIN 7.4 GM/DL (6.4-8.2)
[2017-08-04 14:29] LABS: BASOPHILS # (AUTO) 0.1 10^3/uL (0.0-0.1); BASOPHILS % (AUTO) 1 % (0-10); EOSINOPHILS # (AUTO) 0.3 10^3/uL (0.0-0.3); EOSINOPHILS % (AUTO) 2 % (0-10); HEMATOCRIT 36 % (35-52); HEMOGLOBIN 12.2 G/DL (11.5-16.0); LYMPHOCYTES # (AUTO) 2.2 X 10^3 (1.0-4.0); LYMPHOCYTES % (AUTO) 15 % (12-44); MEAN CORPUSCULAR HEMOGLOBIN 32 PG (25-34); MEAN CORPUSCULAR HGB CONC 34 G/DL (32-36); MEAN CORPUSCULAR VOLUME 95 FL (80-99); MEAN PLATELET VOLUME 9.5 FL (7.4-10.4); MONOCYTES % (AUTO) 7 % (0-12); NEUTROPHILS # (AUTO) 11.2 X 10^3 (1.8-7.8); NEUTROPHILS % (AUTO) 76 % (42-75); PLATELET COUNT 526 10^3/uL (130-400); RED CELL DISTRIBUTION WIDTH 16.2 % (10.0-14.5); WHITE BLOOD COUNT 14.8 10^3/uL (4.3-11.0)
[~2017-08-25 12:52] MED LIST changes: +FERRIC CARBOXYMALTOSE (CANCER) 750 MG in NS (IVPB) CANCER CENTER 250 ML IV SCH
[2017-08-25 13:15] LABS: BASOPHILS # (AUTO) 0.1 10^3/uL (0.0-0.1); BASOPHILS % (AUTO) 1 % (0-10); EOSINOPHILS # (AUTO) 0.3 10^3/uL (0.0-0.3); EOSINOPHILS % (AUTO) 2 % (0-10); HEMATOCRIT 38 % (35-52); HEMOGLOBIN 12.6 G/DL (11.5-16.0); LYMPHOCYTES # (AUTO) 1.9 X 10^3 (1.0-4.0); LYMPHOCYTES % (AUTO) 14 % (12-44); MEAN CORPUSCULAR HEMOGLOBIN 33 PG (25-34); MEAN CORPUSCULAR HGB CONC 33 G/DL (32-36); MEAN CORPUSCULAR VOLUME 99 FL (80-99); MEAN PLATELET VOLUME 10.1 FL (7.4-10.4); MONOCYTES # (AUTO) 0.9 X 10^3 (0.0-1.0); MONOCYTES % (AUTO) 7 % (0-12); NEUTROPHILS # (AUTO) 10.3 X 10^3 (1.8-7.8); NEUTROPHILS % (AUTO) 76 % (42-75); PLATELET COUNT 429 10^3/uL (130-400); RED BLOOD COUNT 3.81 10^6/uL (4.35-5.85); RED CELL DISTRIBUTION WIDTH 16.1 % (10.0-14.5); WHITE BLOOD COUNT 13.4 10^3/uL (4.3-11.0)
[2017-08-25 13:37] LABS: ALBUMIN 4.4 GM/DL (3.2-4.5); BILIRUBIN,TOTAL 0.4 MG/DL (0.1-1.0); CALCIUM 10.3 MG/DL (8.5-10.1); CREATININE SERUM 1.34 MG/DL (0.60-1.30); POTASSIUM 4.4 MMOL/L (3.6-5.0); TOTAL PROTEIN 7.2 GM/DL (6.4-8.2)
== END 2017-09-30 | disposition home or self-care (01) ==
LOC: ONC 12:52
PROVIDERS: ATTEND Internal Medicine Hematology & Oncology
DX: D47.1 Chronic myeloproliferative disease (principal); I10 Essential (primary) hypertension; I25.10 Atherosclerotic heart disease of native coronary artery without angina pectoris; E11.9 Type 2 diabetes mellitus without complications; E78.5 Hyperlipidemia, unspecified; M79.7 Fibromyalgia; Z48.812 Encounter for surgical aftercare following surgery on the circulatory system; Z87.891 Personal history of nicotine dependence; Z79.899 Other long term (current) drug therapy
CPT/HCPCS: 36415; 80053; 82232; 82607; 82728; 83615; 84443; 85025; 96365; 99213

== ENCOUNTER → 2017-08-25 | Outpatient (CLI) | payer MEDICARE, OTHER ==
[~2017-08-25] MED LIST changes: +COLC0.6C3 PO
== END ==
LOC: LAB 13:03
PROVIDERS: ATTEND Specialist
DX: I12.9 Hypertensive chronic kidney disease with stage 1 through stage 4 chronic kidney disease, or unspecified chronic kidney disease (principal); N18.3 Chronic kidney disease, stage 3 (moderate)
CPT/HCPCS: 84100

== ENCOUNTER 2017-09-01 14:52 | Emergency (ER) | payer MEDICARE, OTHER ==
[~2017-09-01] VITALS: Ht 157.5 cm; Wt 70.3 kg
[~2017-09-01 14:52] MED LIST changes: -FERRIC CARBOXYMALTOSE (CANCER) 750 MG in NS (IVPB) CANCER CENTER 250 ML IV SCH
--- OUTSIDE RECORDS SUMMARY | 2017-09-01 14:58 | XMS REPORT | Clinical Summary ---
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 If you do not see the information that you expected, contact Release of Information in the Health Information Management department at [phone] for further assistance in locating additional records.[facility] Allergies Active Allergy Reactions Severity Noted Date Comments Codeine CHEST TIGHTNESS 03/03/2012 Escitalopram HIVES 03/03/2012 Atorvastatin JOINT PAIN 03/03/2012 Niaspan Starter Pack RASH 03/03/2012 Tramadol NAUSEA AND VOMITING 03/03/2012 Current Medications Prescription Sig. Disp. Refills Start [...] Types Packs/Day Years Used Date Never Assessed Sex Assigned at Date Recorded Not on file Last Filed Vital Signs Vital Sign Reading Time Taken Blood Pressure 152/80 03/03/2012 10:35 AM CDT Pulse 86 03/03/2012 10:35 AM CDT Temperature - - Respiratory Rate - - Oxygen Saturation - - Inhaled Oxygen - - Concentration Weight 60.3 kg (133 lb) 03/03/2012 10:35 AM CDT Height 157.5 cm (5' 2") 03/03/2012 10:35 AM CDT Body Mass Index 24.33 03/03/2012 10:35 AM CDT Plan of Treatment Health Maintenance Due Date Last Done Comments PHYSICAL (COMPREHENSIVE) 1952 EXAM PERTUSSIS VACCINE 1955 TETANUS VACCINE 1961 BREAST CANCER SCREENING 1984 COLORECTAL CANCER 1994 SCREENING SHINGLES VACCINE 2004 OSTEOPOROSIS SCREENING 2009 PREVNAR/PNEUMOVAX (#1) 2009 INFLUENZA VACCINE 03/28/2018 Results Not on filefrom Last 3 Months
[2017-09-01 15:42] VITALS: BP 178/98
[2017-09-01 16:22] LABS: BASOPHILS # (AUTO) 0.1 10^3/uL (0.0-0.1); BASOPHILS % (AUTO) 1 % (0-10); EOSINOPHILS # (AUTO) 0.5 10^3/uL (0.0-0.3); EOSINOPHILS % (AUTO) 3 % (0-10); HEMATOCRIT 36 % (35-52); HEMOGLOBIN 12.1 G/DL (11.5-16.0); LYMPHOCYTES % (AUTO) 13 % (12-44); MEAN CORPUSCULAR HEMOGLOBIN 33 PG (25-34); MEAN CORPUSCULAR HGB CONC 34 G/DL (32-36); MEAN CORPUSCULAR VOLUME 99 FL (80-99); MEAN PLATELET VOLUME 9.9 FL (7.4-10.4); MONOCYTES # (AUTO) 1.1 X 10^3 (0.0-1.0); MONOCYTES % (AUTO) 7 % (0-12); NEUTROPHILS # (AUTO) 12.1 X 10^3 (1.8-7.8); NEUTROPHILS % (AUTO) 77 % (42-75); PLATELET COUNT 498 10^3/uL (130-400); RED BLOOD COUNT 3.63 10^6/uL (4.35-5.85); WHITE BLOOD COUNT 15.7 10^3/uL (4.3-11.0)
--- NOTE | 2017-09-01 16:23 | ED Lower Extremity ---
General Chief Complaint: Lower Extremity Stated Complaint: LEFT LEG AND KNEE PAIN Nursing Triage Note: AMB TO ROOM REPORTS WAS STANDING BY GATE WHEN COW TRIED TO COME THROUGH GATE. BRUISNG AND SWELLING TO L LEG,KNEE. WAS SEEN AT [facility] [place] NO XRAY DONE. Nursing Sepsis Screen: No Definite Risk Source: patient Exam Limitations: no limitations History of Present Illness Date Seen by Provider: Sep 01, 2017 Time Seen by Provider: 16:18 Initial Comments To ER with left leg bruising and pain. One week ago, 08/26/17, she was helping her with cattle which ran into a gate knocking the gate into her medial left leg. She was seen at [place] emergency room Wednesday08/28/17 and states she was told there was nothing to be done. Bruising persists. She is on aspirin and Plavix and she does follow with the cancer center for leukocytosis and thrombocytosis. Onset: this evening Severity: moderate Pain/Injury Location: left leg Allergies and Home Medications Allergies Coded Allergies: acetaminophen (Verified Allergy, Unknown, 09/01/17) atorvastatin calcium (Unverified Allergy, Unknown, 07/27/16) cefdinir (Verified Allergy, Unknown, 09/01/17) codeine (Unverified Allergy, Unknown, 07/27/16) doxycycline (Verified Allergy, Unknown, 09/01/17) escitalopram oxalate (Unverified Allergy, Unknown, 07/27/16) niacin (Unverified Allergy, Unknown, 07/27/16) oxycodone (Verified Allergy, Unknown, 09/01/17) simvastatin (Unverified Allergy, Unknown, 07/27/16) tramadol (Unverified Allergy, Unknown, 07/27/16) Home Medications Alprazolam 0.25 Mg Tab.rapdis, 1 EACH PO NEEDED, (Reported) FOR ANXIETY Aspirin 81 Mg Tabec, 81 MG PO DAILY, (Reported) Clopidogrel Bisulfate 75 Mg Tablet, 1 EACH PO DAILY, (Reported) Colchicine 0.6 Mg Capsule, 0.6 MG PO UD 1.2 mg po initially followed by 0.6 mg 1 hour later. Prescribed by: CLAUDIA SANCHEZ on 08/09/17 1322 Diltiazem Hcl 120 Mg Tablet, 240 MG PO BID, (Reported) Hydrocodone Bit/Acetaminophen 1 Each Tablet, 1-2 EACH PO Q6H PRN for PAIN Prescribed by: ANDREA MEDINA on 07/24/16 1104 Levofloxacin 500 Mg Tab, 1 EACH PO DAILY, (Reported) X 5 DAYS Metformin Hcl 500 Mg Tablet, 1 EACH PO BID PRN, (Reported) Metoprolol Succinate 50 Mg Tab.sr.24h, 50 MG PO BID, (Reported) Ondansetron 4 Mg Tab.rapdis, 4 MG PO Q6H PRN for NAUSEA/VOMITING Prescribed by: ANDREA MEDINA on 07/24/16 1104 Oxycodone Hcl/Acetaminophen 1 Tab Tablet, 1-2 TAB PO Q6H PRN, (Reported) Ranitidine Hcl 300 Mg Tablet, 150 MG PO DAILY, (Reported) Patient Home Medication List Home Medication List Reviewed: Yes Constitutional: see HPI EENTM: see HPI Respiratory: no symptoms reported Cardiovascular: no symptoms reported Genitourinary: no symptoms reported Musculoskeletal: see HPI Skin: no symptoms reported Psychiatric/Neurological: No Symptoms Reported Past Xsewtyx-Nnrdha-Oebkjg Hx Patient Social History Alcohol Use: Denies Use Recreational Drug Use: No Former Smoker, Quit: Aug 15, 2012 Recent Foreign Travel: No Contact w/Someone Who Travel: No Recent Infectious Disease Expo: No Recent Hopitalizations: No Immunizations Up To Date Tetanus Booster (TDap): Less than 5yrs PED Vaccines UTD: No Date of Pneumonia Vaccine: Sep 26, 2009 Date of Influenza Vaccine: Mar 22, 2012 Surgeries History of Surgeries: Yes (RENAL STENTS ,LEFT KNEE ARTH, ABCESS ON KIDN, RECTOCILE, BLADDER SLING) Surgeries: Adenoidectomy, Bladder Surgery, Coronary Stent, Gallbladder, Hysterectomy, Orthopedic Respiratory History of Respiratory Disorde: Yes Respiratory Disorders: COPD Cardiovascular History of Cardiac Disorders: Yes Cardiac Disorders: Coronary Artery Disease, High Cholesterol, Hypertension Neurological History of Neurological Disord: No Reproductive System Hx Reproductive Disorders: No Sexually Transmitted Disease: No HIV/AIDS: No Female Reproductive Disorders: Denies Genitourinary History of Genitourinary Disor: Yes (CHRONIC KIDNEY DZ) Gastrointestinal History of Gastrointestinal Di: Yes (DIVERTICULITIS) Gastrointestinal Disorders: Gastroesophageal Reflux, Polyps Musculoskeletal History of Musculoskeletal Dis: Yes (, CERVICAL STENOSIS) Musculoskeletal Disorders: Fibromyalgia Endocrine History of Endocrine Disorders: Yes (history of thyroid nodules) Endocrine Disorders: Adrenal Disease, Diabetes, Non-Insulin dep HEENT Loss of Vision: Bilateral Hearing Impairment: Hard of Hearing Cancer History of Cancer: No Psychosocial History of Psychiatric Problem: No Integumentary History of Skin or Integumenta: No Blood Transfusions History of Blood Disorders: Yes (LEUKOCYTOSIS AND THROMBOSYTOSIS) Adverse Reaction to a Blood Tr: No Family Medical History Significant Family History: No Pertinent Family Hx Physical Exam Vital Signs Vital Signs - First Documented 09/01/17 15:42 Temp 98.0 Pulse 71 Resp 18 B/P (MAP) 178/98 (124) O2 Delivery Room Air Capillary Refill : Less Than 3 Seconds General Appearance: WD/WN, no apparent distress HEENT: PERRL/EOMI, normal ENT inspection Neck: non-tender, full range of motion Respiratory: no respiratory distress, no accessory muscle use Gastrointestinal: normal bowel sounds, non tender Hips: bilateral hip non-tender, bilateral hip normal inspection, bilateral hip normal range of motion Legs: bilateral leg non-tender, bilateral leg normal range of motion, left leg other (significant ecchymosis to the medial aspect of the left distal thigh, anterior and medial aspect of the left tib-fib proximally. There is a palpable hematoma to the anteromedial aspect of proximal tib-fib and anteromedial aspect of distal left thigh. There is no significant erythema to suggest cellulitis. She is without fevers or chills. No open wounds.) Knees: bilateral knee non-tender, bilateral knee normal inspection, bilateral knee normal range of motion Ankles: bilateral ankle non-tender, bilateral ankle normal inspection, bilateral ankle normal range of motion Feet: bilateral foot non-tender, bilateral foot normal inspection, bilateral foot normal range of motion Neurologic/Psychiatric: alert, normal mood/affect, oriented x 3 Skin: normal color, warm/dry Progress/Results/Core Measures Results/Orders Lab Results Laboratory Tests Test 09/01/17 16:15 Range/Units White Blood Count 15.7 H 4.3-11.0 10^3/uL Red Blood Count 3.63 L 4.35-5.85 10^6/uL Hemoglobin 12.1 11.5-16.0 G/DL Hematocrit 36 35-52 % Mean Corpuscular Volume 99 80-99 FL Mean Corpuscular Hemoglobin 33 25-34 PG Mean Corpuscular Hemoglobin Concent 34 32-36 G/DL Red Cell Distribution Width 16.0 H 10.0-14.5 % Platelet Count 498 H 130-400 10^3/uL Mean Platelet Volume 9.9 7.4-10.4 FL Neutrophils (%) (Auto) 77 H 42-75 % Lymphocytes (%) (Auto) 13 12-44 % Monocytes (%) (Auto) 7 0-12 % Eosinophils (%) (Auto) 3 0-10 % Basophils (%) (Auto) 1 0-10 % Neutrophils # (Auto) 12.1 H 1.8-7.8 X 10^3 Lymphocytes # (Auto) 2.0 1.0-4.0 X 10^3 Monocytes # (Auto) 1.1 H 0.0-1.0 X 10^3 Eosinophils # (Auto) 0.5 H 0.0-0.3 10^3/uL Basophils # (Auto) 0.1 0.0-0.1 10^3/uL Neutrophils % (Manual) 82 % Lymphocytes % (Manual) 11 % Monocytes % (Manual) 2 % Eosinophils % (Manual) 5 % Basophils % (Manual) 0 % Band Neutrophils 0 % Anisocytosis SLIGHT Macrocytosis SLIGHT Sodium Level 138 135-145 MMOL/L Potassium Level 4.1 3.6-5.0 MMOL/L Chloride Level 106 98-107 MMOL/L Carbon Dioxide Level 22 21-32 MMOL/L Anion Gap 10 5-14 MMOL/L Blood Urea Nitrogen 28 H 7-18 MG/DL Creatinine 1.55 H 0.60-1.30 MG/DL Estimat Glomerular Filtration Rate 33 BUN/Creatinine Ratio 18 Glucose Level 134 H 70-105 MG/DL Calcium Level 10.4 H 8.5-10.1 MG/DL My Orders Orders - SERG ARIAS APRN Cbc With Automated Diff (09/01/17 16:03) Basic Metabolic Panel (09/01/17 16:18) Manual Differential (09/01/17 16:15) Knee, Left, 3 Views (09/01/17 16:54) Vital Signs/I&O Vital Sign - Last 12Hours 09/01/17 15:42 Temp 98.0 Pulse 71 Resp 18 B/P (MAP) 178/98 (124) O2 Delivery Room Air Blood Pressure Mean: 124 Departure Communication (Admissions) Progress Notes Patient does see Dr. Moffett in [place] but states that she's been told that he is retiring. 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 I will list the local cardiologists. Impression Impression: Primary Impression: Hematoma of left thigh Disposition: HOME, SELF-CARE Condition: Stable Departure-Patient Inst. Decision time for Depature: 16:21 Referrals: CHRISTY ESQUIVEL MD FACP FAC CCDS Mervin HILL MD, BASHAR J MD TANG, WEN-CHOU MD (PCP/Family) Primary Care Physician Patient Instructions: HEMATOMA Add. Discharge Instructions: 1. Return to ER for any concerns 2. Follow up with your doctor next week for recheck. This pain and bruising will improve over the next several weeks. All discharge instructions reviewed with patient and/or family. Voiced understanding. Copy Copies To 1: KEMI SETH MD, PETER J APRN Sep 01, 2017 16:23
[2017-09-01 16:39] LABS: CALCIUM 10.4 MG/DL (8.5-10.1); CREATININE SERUM 1.55 MG/DL (0.60-1.30); POTASSIUM 4.1 MMOL/L (3.6-5.0)
[2017-09-01 16:54] LABS: BAND NEUTROPHILS 0 %; BASOPHILS % (MANUAL) 0 %; EOSINOPHILS % (MANUAL) 5 %; LYMPHOCYTES % (MANUAL) 11 %; MONOCYTES % (MANUAL) 2 %; NEUTROPHILS % (MANUAL) 82 %
[2017-09-01 16:55] LABS: ANISOCYTOSIS SLIGHT
--- NOTE | 2017-09-01 17:17 | Diagnostic Imaging Report ---
INDICATION: Left knee pain post injury. EXAMINATION: AP, oblique and lateral views of the left knee were obtained. FINDINGS: No fracture or acute bony abnormality is seen. There is some suprapatellar spurring. There is no overt joint effusion. IMPRESSION: Chronic changes with no acute abnormality. Dictated by: Dictated on workstation # [id number]
== END 2017-09-01 17:11 | disposition home or self-care (01) ==
LOC: EDUNIT# 14:52 → ER 14:55
DX: S70.12XA Contusion of left thigh, initial encounter (principal); E11.22 Type 2 diabetes mellitus with diabetic chronic kidney disease; I12.9 Hypertensive chronic kidney disease with stage 1 through stage 4 chronic kidney disease, or unspecified chronic kidney disease; N18.9 Chronic kidney disease, unspecified; K21.9 Gastro-esophageal reflux disease without esophagitis; I25.10 Atherosclerotic heart disease of native coronary artery without angina pectoris; J44.9 Chronic obstructive pulmonary disease, unspecified; Z95.5 Presence of coronary angioplasty implant and graft; Z90.710 Acquired absence of both cervix and uterus; Z90.89 Acquired absence of other organs; Z87.891 Personal history of nicotine dependence; Z79.82 Long term (current) use of aspirin; Z79.02 Long term (current) use of antithrombotics/antiplatelets; Z79.84 Long term (current) use of oral hypoglycemic drugs; Z88.5 Allergy status to narcotic agent; Z88.8 Allergy status to other drugs, medicaments and biological substances; Z88.1 Allergy status to other antibiotic agents; W22.09XA Striking against other stationary object, initial encounter
CPT/HCPCS: 36415; 73562; 80048; 85007; 85027; 99283

== ENCOUNTER 2017-11-03 13:36 | Outpatient (RCR) | payer MEDICARE, OTHER ==
[2017-10-26 14:35] LABS: BASOPHILS # (AUTO) 0.1 10^3/uL (0.0-0.1); BASOPHILS % (AUTO) 1 % (0-10); EOSINOPHILS # (AUTO) 0.2 10^3/uL (0.0-0.3); EOSINOPHILS % (AUTO) 1 % (0-10); HEMATOCRIT 37 % (35-52); HEMOGLOBIN 12.7 G/DL (11.5-16.0); LYMPHOCYTES # (AUTO) 1.8 X 10^3 (1.0-4.0); LYMPHOCYTES % (AUTO) 12 % (12-44); MEAN CORPUSCULAR HEMOGLOBIN 35 PG (25-34); MEAN CORPUSCULAR HGB CONC 34 G/DL (32-36); MEAN CORPUSCULAR VOLUME 104 FL (80-99); MONOCYTES % (AUTO) 7 % (0-12); NEUTROPHILS # (AUTO) 12.2 X 10^3 (1.8-7.8); NEUTROPHILS % (AUTO) 80 % (42-75); PLATELET COUNT 484 10^3/uL (130-400); RED BLOOD COUNT 3.61 10^6/uL (4.35-5.85); RED CELL DISTRIBUTION WIDTH 14.4 % (10.0-14.5); WHITE BLOOD COUNT 15.4 10^3/uL (4.3-11.0)
[2017-10-26 14:54] LABS: ALBUMIN 4.3 GM/DL (3.2-4.5); BILIRUBIN,TOTAL 0.3 MG/DL (0.1-1.0); CALCIUM 10.2 MG/DL (8.5-10.1); CREATININE SERUM 1.31 MG/DL (0.60-1.30); POTASSIUM 4.3 MMOL/L (3.6-5.0); TOTAL PROTEIN 7.7 GM/DL (6.4-8.2)
== END 2018-01-24 | disposition home or self-care (01) ==
LOC: ONC 13:36
PROVIDERS: ATTEND Internal Medicine Hematology & Oncology
DX: D47.1 Chronic myeloproliferative disease (principal); D50.9 Iron deficiency anemia, unspecified; I12.9 Hypertensive chronic kidney disease with stage 1 through stage 4 chronic kidney disease, or unspecified chronic kidney disease; E11.22 Type 2 diabetes mellitus with diabetic chronic kidney disease; N18.3 Chronic kidney disease, stage 3 (moderate); I25.10 Atherosclerotic heart disease of native coronary artery without angina pectoris; E78.5 Hyperlipidemia, unspecified; M79.7 Fibromyalgia; Z48.812 Encounter for surgical aftercare following surgery on the circulatory system; Z87.891 Personal history of nicotine dependence; Z79.899 Other long term (current) drug therapy
CPT/HCPCS: 36415; 80053; 82232; 82728; 83540; 83615; 85025; 99213

== ENCOUNTER → 2017-11-11 | Outpatient (CLI) | payer MEDICARE, OTHER ==
--- NOTE | 2017-11-11 16:13 | Diagnostic Imaging Report ---
PROCEDURE: US Thyroid. TECHNIQUE: Multiple real-time grayscale images were obtained of the thyroid in various projections. INDICATION: Thyroid nodules. FINDINGS: The right lobe of the thyroid measures 3.3 x 1.5 x 1.8 cm and the left lobe measures 3.8 x 1.9 x 1.5 cm. Multiple bilateral thyroid nodules are present. Largest nodule is in the left lobe measuring approximately 13 mm x 4 mm x 6 mm. No microcalcifications are seen. There is also a subcentimeter nodule in the medial left lobe and a subcentimeter nodule in the lower pole of right lobe. No dominant thyroid mass is detected. The isthmus is thickened at 6 mm. IMPRESSION: Multinodular thyroid, likely owing to multinodular goiter. Follow-up ultrasound in six months could be performed to confirm stability. Dictated by: Dictated on workstation # [id number]
--- NOTE | 2017-11-11 19:09 | Diagnostic Imaging Report ---
INDICATION: Thickening around the right nipple. FINDINGS: Sonographic interrogation of the periareolar region was performed. No sonographic abnormality is identified. No solid or cystic mass is detected. IMPRESSION: No sonographic abnormality is seen. If there continues to be clinical concern, diagnostic mammography would be recommended. ACR BI-RADS Category 1: Negative. Dictated by: Dictated on workstation # [id number]
== END ==
LOC: RAD 13:53
PROVIDERS: ATTEND Internal Medicine Hematology & Oncology
DX: E04.2 Nontoxic multinodular goiter (principal); N64.59 Other signs and symptoms in breast
CPT/HCPCS: 76536; 76641

== ENCOUNTER → 2018-01-11 | Outpatient (CLI) | payer MEDICARE, OTHER ==
[~2018-01-11] MED LIST changes: +REGADENOSON 0.4 MG/5 ML SYR (LEXISCAN) IV ONE
[2018-01-11] MEDS: CATHETER FLUSH 10 ML SYR IV PRN ×2 (11:26→12:56)
[2018-01-11 12:54] VITALS: BP 157/83
--- NOTE | 2018-01-12 20:42 | STRESS TEST ---
DATE OF SERVICE: 01/11/2018 RESTING AND POST REGADENOSON TECHNETIUM-99M TETROFOSMIN SPECT CT IMAGING CLINICAL DIAGNOSIS: Shortness of breath, chest discomfort. ORDERING PHYSICIAN: Dr. Fernandes. PRIMARY PHYSICIAN: Dr. Knox. Baseline images were carried out after injection of 10.25 mCi technetium-99m Tetrofosmin. Subsequently, 0.4 mg regadenoson was given and this was followed by 30.3 mCi technetium-99m Tetrofosmin for stress imaging. The electrocardiogram showed sinus rhythm throughout the study. It did not change significantly with regadenoson infusion. The patient tolerated the procedure well. Review of images at rest and following stress does not indicate any distinct perfusion defects consistent with significant myocardial ischemia or infarction. Gated images show normal global left ventricular systolic function with normal regional wall motion. Left ventricular ejection fraction is calculated to be 69%. Left ventricular end-diastolic volume is 58 mL. TID is absent (1.13). CONCLUSIONS: 1. No evidence of any significant myocardial ischemia or infarction on this study. 2. Normal regional wall motion. 3. Normal global left ventricular systolic function with a calculated ejection fraction of 69%. Job ID: [id number] DocumentID: [id number] Dictated Date: 01/12/2018 17:01:48 Benefits Technician Date: 01/12/2018 20:41:57 Dictated By: CHRISTY FERNANDES MD, MA, FACP, FACC,
== END ==
LOC: CARD 10:54
PROVIDERS: ATTEND Internal Medicine Cardiovascular Disease
DX: R07.89 Other chest pain (principal); R06.02 Shortness of breath; G47.30 Sleep apnea, unspecified; D47.1 Chronic myeloproliferative disease; N18.3 Chronic kidney disease, stage 3 (moderate); J44.9 Chronic obstructive pulmonary disease, unspecified; E11.9 Type 2 diabetes mellitus without complications; Z72.0 Tobacco use
CPT/HCPCS: 78452; 93017; 93306

== ENCOUNTER 2018-02-02 14:16 | Outpatient (RCR) | payer MEDICARE, OTHER ==
[2018-01-26 09:56] LABS: BASOPHILS # (AUTO) 0.1 10^3/uL (0.0-0.1); BASOPHILS % (AUTO) 1 % (0-10); EOSINOPHILS # (AUTO) 0.3 10^3/uL (0.0-0.3); EOSINOPHILS % (AUTO) 2 % (0-10); HEMATOCRIT 37 % (35-52); HEMOGLOBIN 12.7 G/DL (11.5-16.0); LYMPHOCYTES # (AUTO) 1.8 X 10^3 (1.0-4.0); LYMPHOCYTES % (AUTO) 13 % (12-44); MEAN CORPUSCULAR HEMOGLOBIN 35 PG (25-34); MEAN CORPUSCULAR HGB CONC 35 G/DL (32-36); MEAN CORPUSCULAR VOLUME 101 FL (80-99); MEAN PLATELET VOLUME 9.9 FL (7.4-10.4); MONOCYTES # (AUTO) 0.7 X 10^3 (0.0-1.0); MONOCYTES % (AUTO) 5 % (0-12); NEUTROPHILS # (AUTO) 10.4 X 10^3 (1.8-7.8); NEUTROPHILS % (AUTO) 78 % (42-75); PLATELET COUNT 479 10^3/uL (130-400); RED BLOOD COUNT 3.61 10^6/uL (4.35-5.85); RED CELL DISTRIBUTION WIDTH 14.4 % (10.0-14.5); WHITE BLOOD COUNT 13.2 10^3/uL (4.3-11.0)
[2018-01-26 10:12] LABS: ALBUMIN 4.4 GM/DL (3.2-4.5); BILIRUBIN,TOTAL 0.3 MG/DL (0.1-1.0); CALCIUM 10.4 MG/DL (8.5-10.1); CREATININE SERUM 1.36 MG/DL (0.60-1.30); POTASSIUM 4.3 MMOL/L (3.6-5.0); TOTAL PROTEIN 7.4 GM/DL (6.4-8.2)
[~2018-02-02 14:16] MED LIST changes: -REGADENOSON 0.4 MG/5 ML SYR (LEXISCAN) IV ONE
== END 2018-02-25 | disposition home or self-care (01) ==
LOC: ONC 14:16
PROVIDERS: ATTEND Internal Medicine Hematology & Oncology
DX: D47.1 Chronic myeloproliferative disease (principal); D50.9 Iron deficiency anemia, unspecified; I12.9 Hypertensive chronic kidney disease with stage 1 through stage 4 chronic kidney disease, or unspecified chronic kidney disease; E11.22 Type 2 diabetes mellitus with diabetic chronic kidney disease; N18.3 Chronic kidney disease, stage 3 (moderate); I25.10 Atherosclerotic heart disease of native coronary artery without angina pectoris; E78.5 Hyperlipidemia, unspecified; M79.7 Fibromyalgia; Z48.812 Encounter for surgical aftercare following surgery on the circulatory system; Z87.891 Personal history of nicotine dependence; Z79.899 Other long term (current) drug therapy
CPT/HCPCS: 36415; 80053; 82728; 85025; 99213

== ENCOUNTER → 2018-05-05 | Outpatient (CLI) | payer MEDICARE, OTHER ==
[2018-05-05 11:25] LABS: CALCIUM 10.8 MG/DL (8.5-10.1); CREATININE SERUM 1.44 MG/DL (0.60-1.30); MAGNESIUM 1.2 MG/DL (1.8-2.4); POTASSIUM 3.9 MMOL/L (3.6-5.0)
== END ==
LOC: LAB 10:46
PROVIDERS: ATTEND Nurse Practitioner Family
DX: I12.9 Hypertensive chronic kidney disease with stage 1 through stage 4 chronic kidney disease, or unspecified chronic kidney disease (principal); N18.3 Chronic kidney disease, stage 3 (moderate); I25.10 Atherosclerotic heart disease of native coronary artery without angina pectoris; E78.5 Hyperlipidemia, unspecified
CPT/HCPCS: 36415; 80048; 83735

== ENCOUNTER → 2018-05-05 | Outpatient (CLI) | payer MEDICARE, OTHER ==
[2018-05-05 11:46] LABS: FREE T4 (FREE THYROXINE) 1.2 NG/DL (0.70-1.48)
== END ==
LOC: LAB 10:41
PROVIDERS: ATTEND Internal Medicine Endocrinology, Diabetes & Metabolism
DX: E04.2 Nontoxic multinodular goiter (principal)
CPT/HCPCS: 36415; 84439; 84443; 84481

== ENCOUNTER → 2018-05-05 | Outpatient (CLI) | payer MEDICARE, OTHER ==
[2018-05-05 11:26] LABS: ALBUMIN 4.5 GM/DL (3.2-4.5); CALCIUM 10.8 MG/DL (8.5-10.1); CREATININE SERUM 1.44 MG/DL (0.60-1.30); PHOSPHORUS 2.5 MG/DL (2.3-4.7); POTASSIUM 3.9 MMOL/L (3.6-5.0)
== END ==
LOC: LAB 10:37
PROVIDERS: ATTEND Specialist
DX: I12.9 Hypertensive chronic kidney disease with stage 1 through stage 4 chronic kidney disease, or unspecified chronic kidney disease (principal); N18.3 Chronic kidney disease, stage 3 (moderate); E04.2 Nontoxic multinodular goiter; I25.10 Atherosclerotic heart disease of native coronary artery without angina pectoris; E78.5 Hyperlipidemia, unspecified
CPT/HCPCS: 80069

== ENCOUNTER 2018-05-10 13:13 | Outpatient (RCR) | payer MEDICARE, OTHER ==
[2018-05-05 11:02] LABS: BASOPHILS # (AUTO) 0.1 10^3/uL (0.0-0.1); BASOPHILS % (AUTO) 1 % (0-10); EOSINOPHILS # (AUTO) 0.4 10^3/uL (0.0-0.3); EOSINOPHILS % (AUTO) 2 % (0-10); HEMATOCRIT 36 % (35-52); HEMOGLOBIN 12.1 G/DL (11.5-16.0); LYMPHOCYTES # (AUTO) 2.2 X 10^3 (1.0-4.0); LYMPHOCYTES % (AUTO) 14 % (12-44); MEAN CORPUSCULAR HEMOGLOBIN 34 PG (25-34); MEAN CORPUSCULAR HGB CONC 34 G/DL (32-36); MEAN CORPUSCULAR VOLUME 101 FL (80-99); MEAN PLATELET VOLUME 10.1 FL (7.4-10.4); MONOCYTES # (AUTO) 1.1 X 10^3 (0.0-1.0); MONOCYTES % (AUTO) 7 % (0-12); NEUTROPHILS # (AUTO) 11.5 X 10^3 (1.8-7.8); NEUTROPHILS % (AUTO) 75 % (42-75); PLATELET COUNT 471 10^3/uL (130-400); WHITE BLOOD COUNT 15.3 10^3/uL (4.3-11.0)
[2018-05-05 11:23] LABS: ALBUMIN 4.5 GM/DL (3.2-4.5); BILIRUBIN,TOTAL 0.4 MG/DL (0.1-1.0); CALCIUM 10.8 MG/DL (8.5-10.1); CREATININE SERUM 1.44 MG/DL (0.60-1.30); POTASSIUM 3.9 MMOL/L (3.6-5.0); TOTAL PROTEIN 7.5 GM/DL (6.4-8.2)
== END 2018-08-03 | disposition home or self-care (01) ==
LOC: ONC 13:13
PROVIDERS: ATTEND Internal Medicine Hematology & Oncology
DX: D47.1 Chronic myeloproliferative disease (principal); D50.9 Iron deficiency anemia, unspecified; I12.9 Hypertensive chronic kidney disease with stage 1 through stage 4 chronic kidney disease, or unspecified chronic kidney disease; E11.22 Type 2 diabetes mellitus with diabetic chronic kidney disease; N18.3 Chronic kidney disease, stage 3 (moderate); I25.10 Atherosclerotic heart disease of native coronary artery without angina pectoris; E78.5 Hyperlipidemia, unspecified; M79.7 Fibromyalgia; Z48.812 Encounter for surgical aftercare following surgery on the circulatory system; Z87.891 Personal history of nicotine dependence; Z79.899 Other long term (current) drug therapy; E04.2 Nontoxic multinodular goiter
CPT/HCPCS: 36415; 80053; 82728; 83615; 84439; 84443; 84481; 85025; 99213

== ENCOUNTER → 2018-05-16 | Outpatient (CLI) | payer MEDICARE, OTHER ==
--- NOTE | 2018-05-16 12:40 | Diagnostic Imaging Report ---
PROCEDURE: US Thyroid. TECHNIQUE: Multiple real-time grayscale images were obtained of the thyroid in various projections. INDICATION: Thyroid nodule, palpable abnormality. FINDINGS: The previous thyroid ultrasound exam performed on 11/11/2017 suggested a multinodular goiter. In the interval since the previous exam, a new 0.8 x 0.8 x 0.9 cm cystic nodule has developed in the mid portion of the right lobe. This cyst has a benign appearance. The other nodules in both lobes seen previously are essentially no different including the 1.3 x 0.4 x 0.6 cm nodule in the superior pole of the left lobe. However, there is now a 1.0 x 0.8 cm lymph node adjacent to the left lobe of the thyroid. Whether this is related to the patient's palpable abnormality is not certain. The thyroid gland itself is not enlarged with the right lobe measuring 3.4 x 1.6 x 1.7 cm and the left lobe estimated to be 3.8 x 1.9 x 1.4 cm. IMPRESSION: 1. In the interval since the prior study, a roughly 1 cm cyst has developed in the midportion of the right lobe of the thyroid. The overall appearance of the thyroid gland itself has not changed significantly otherwise. 2. There is a 1 cm lymph node adjacent to the left lobe of the thyroid. Whether this is related to the patient's palpable abnormality is not certain. Dictated by: Dictated on workstation # [id number]
== END ==
LOC: RAD 07:45
PROVIDERS: ATTEND Nurse Practitioner Adult Health
DX: E04.2 Nontoxic multinodular goiter (principal)
CPT/HCPCS: 76536

== ENCOUNTER → 2018-07-22 | Outpatient (CLI) | payer MEDICARE, OTHER ==
--- NOTE | 2018-07-22 17:31 | Diagnostic Imaging Report ---
INDICATION: Routine screening. COMPARISON: Prior mammogram from 07/14/2017 and 05/19/2016. EXAMINATION: 2D and 3D bilateral screening mammography was performed with CAD. The current study was also evaluated with a Computer Aided Detection (CAD) system. FINDINGS: Both breasts are heterogeneously dense, limiting the sensitivity of mammography. Both breasts again demonstrate somewhat fibronodular parenchymal pattern. Rounded densities in both breasts appear stable and likely secondary to benign etiology. There are scattered benign calcifications. No new mass or malignant appearing microcalcifications are seen. Axillae are unremarkable. IMPRESSION: No mammographic features suspicious for malignancy are identified. ACR BI-RADS Category 2: Benign findings. Result letter will be mailed to the patient. Note: At least 10% of breast cancer is not imaged by mammography. Dictated on workstation # [id number]
== END ==
LOC: RAD 09:45
PROVIDERS: ATTEND Nurse Practitioner Adult Health
DX: Z12.31 Encounter for screening mammogram for malignant neoplasm of breast (principal)
CPT/HCPCS: 77067

== ENCOUNTER → 2018-08-18 | Outpatient (CLI) | payer MEDICARE, OTHER ==
[2018-08-18 14:25] LABS: ALBUMIN 4.4 GM/DL (3.2-4.5); CREATININE SERUM 1.8 MG/DL (0.60-1.30); POTASSIUM 4.3 MMOL/L (3.6-5.0)
[2018-08-18 14:40] LABS: PHOSPHORUS 3.2 MG/DL (2.3-4.7)
== END ==
LOC: LAB 08:27
PROVIDERS: ATTEND Family Medicine
DX: E11.9 Type 2 diabetes mellitus without complications (principal); I12.9 Hypertensive chronic kidney disease with stage 1 through stage 4 chronic kidney disease, or unspecified chronic kidney disease; N18.3 Chronic kidney disease, stage 3 (moderate)
CPT/HCPCS: 36415; 80069; 83036; 84100

== ENCOUNTER 2018-08-24 12:45 | Outpatient (RCR) | payer MEDICARE, OTHER ==
[2018-08-18 08:43] LABS: BASOPHILS # (AUTO) 0.1 10^3/uL (0.0-0.1); BASOPHILS % (AUTO) 1 % (0-10); EOSINOPHILS # (AUTO) 0.3 10^3/uL (0.0-0.3); EOSINOPHILS % (AUTO) 2 % (0-10); HEMATOCRIT 40 % (35-52); HEMOGLOBIN 13.1 G/DL (11.5-16.0); LYMPHOCYTES # (AUTO) 1.3 X 10^3 (1.0-4.0); LYMPHOCYTES % (AUTO) 13 % (12-44); MEAN CORPUSCULAR HEMOGLOBIN 33 PG (25-34); MEAN CORPUSCULAR HGB CONC 33 G/DL (32-36); MEAN CORPUSCULAR VOLUME 100 FL (80-99); MEAN PLATELET VOLUME 10.1 FL (7.4-10.4); MONOCYTES # (AUTO) 0.6 X 10^3 (0.0-1.0); MONOCYTES % (AUTO) 6 % (0-12); NEUTROPHILS # (AUTO) 8.4 X 10^3 (1.8-7.8); NEUTROPHILS % (AUTO) 79 % (42-75); PLATELET COUNT 363 10^3/uL (130-400); RED CELL DISTRIBUTION WIDTH 14.9 % (10.0-14.5); WHITE BLOOD COUNT 10.7 10^3/uL (4.3-11.0)
[2018-08-18 09:05] LABS: ALBUMIN 4.4 GM/DL (3.2-4.5); BILIRUBIN,TOTAL 0.3 MG/DL (0.1-1.0); CREATININE SERUM 1.8 MG/DL (0.60-1.30); POTASSIUM 4.3 MMOL/L (3.6-5.0); TOTAL PROTEIN 6.9 GM/DL (6.4-8.2)
[2018-10-04] MEDS ORDERED: DOXA2TAB2 PO (09:10)
[2018-10-04] MEDS ORDERED: ISOS120T9 PO (09:11)
[2018-10-04] MEDS ORDERED: FESO4TAB PO (09:11)
[2018-10-04] MEDS ORDERED: PANT40TA3 PO (09:12)
[2018-10-04] MEDS ORDERED: GLIP-30 PO (09:12)
[2018-10-04] MEDS ORDERED: LOSA100T57 PO (09:12)
[2018-10-04] MEDS ORDERED: MAGN400T39 PO (09:13)
[2018-10-04] MEDS ORDERED: BISO1TAB6 PO (09:15)
[2018-10-04] MEDS ORDERED: ASPI-999 PO (15:27)
[2018-10-05] MEDS ORDERED: AMLO5TAB9 PO (07:32)
== END 2018-11-16 | disposition home or self-care (01) ==
LOC: ONC 12:45
PROVIDERS: ATTEND Internal Medicine Hematology & Oncology
DX: D47.1 Chronic myeloproliferative disease (principal); D50.9 Iron deficiency anemia, unspecified; I12.9 Hypertensive chronic kidney disease with stage 1 through stage 4 chronic kidney disease, or unspecified chronic kidney disease; E11.22 Type 2 diabetes mellitus with diabetic chronic kidney disease; N18.3 Chronic kidney disease, stage 3 (moderate); I25.10 Atherosclerotic heart disease of native coronary artery without angina pectoris; E78.5 Hyperlipidemia, unspecified; M79.7 Fibromyalgia; Z48.812 Encounter for surgical aftercare following surgery on the circulatory system; Z87.891 Personal history of nicotine dependence; Z79.899 Other long term (current) drug therapy; E04.2 Nontoxic multinodular goiter
CPT/HCPCS: 36415; 80053; 82728; 83615; 85025; 99213

== ENCOUNTER 2018-10-04 06:54 | Day surgery (SDC) | payer MEDICARE, OTHER ==
[2018-10-04] VITALS (14 sets, daily range): BP systolic 153–196; BP diastolic 71–87
[~2018-10-04] VITALS: Ht 157.5 cm; Wt 70.3 kg
[2018-10-04] MEDS ORDERED: LIDOCAINE 1% INJ 20 ML 20 ML VIAL ONE (07:16)
[2018-10-04] MEDS ORDERED: HEParin 1000 UNIT/ML (10ML VIAL) FOR BOLUS ONE (07:16)
[2018-10-04] MEDS: NS IV 1000 ML 1,000 ML IV SCH ×3 (07:29→17:47)
[2018-10-04 07:32] LABS: HEMOGLOBIN 13.3 G/DL (11.5-16.0); RED CELL DISTRIBUTION WIDTH 14.5 % (10.0-14.5); WHITE BLOOD COUNT 10.4 10^3/uL (4.3-11.0)
[2018-10-04 07:49] LABS: INR 0.9 (0.8-1.4); PROTHROMBIN TIME PATIENT 12.6 SEC (12.2-14.7)
[2018-10-04 07:55] LABS: ALBUMIN 4.5 GM/DL (3.2-4.5); BILIRUBIN,TOTAL 0.4 MG/DL (0.1-1.0); CALCIUM 10.9 MG/DL (8.5-10.1); CREATININE SERUM 1.74 MG/DL (0.60-1.30); POTASSIUM 4.5 MMOL/L (3.6-5.0); TOTAL PROTEIN 7.1 GM/DL (6.4-8.2)
[2018-10-04] MEDS ORDERED: MIDAZOLAM 5 MG/5 ML (VERSED) VIAL ONE (08:32)
[2018-10-04] MEDS ORDERED: fentaNYL INJECTION 100 MCG/2 ML AMP ONE ×2 (08:32→09:33)
[2018-10-04] MEDS ORDERED: NS IV 1000 ML 1,000 ML ONE (09:02)
[2018-10-04] MEDS ORDERED: DOXA2TAB2 PO (09:10)
[2018-10-04] MEDS ORDERED: ISOS120T9 PO (09:11)
[2018-10-04] MEDS ORDERED: FESO4TAB PO (09:11)
[2018-10-04] MEDS ORDERED: GLIP-30 PO (09:12)
[2018-10-04] MEDS ORDERED: LOSA100T57 PO (09:12)
[2018-10-04] MEDS ORDERED: PANT40TA3 PO (09:12)
[2018-10-04] MEDS ORDERED: MAGN400T39 PO (09:13)
[2018-10-04] MEDS ORDERED: BISO1TAB6 PO (09:15)
--- NOTE | 2018-10-04 09:16 | NUR ---
Spoke to patient she stated the last time she took her medication. She brought in medication bottles. [place] is in a sample pack.
[2018-10-04] MEDS ORDERED: NITRO DRIP 25000 MCG/D5W 250 ML IV ONE (09:30)
[2018-10-04] MEDS ORDERED: EPTIFIBATIDE BOLUS 20 ML IV ONE (09:30)
[2018-10-04] MEDS ORDERED: MIDAZOLAM 2 MG/2 ML (VERSED) VIAL ONE (09:33)
[2018-10-04] MEDS ORDERED: CLOPIDOGREL 300 MG (PLAVIX) TABLET PO ONE (10:17)
[2018-10-04] MEDS ORDERED: ASPIRIN 81 MG CHEW (CHILDREN'S ASA) ONE (10:17)
[2018-10-04] MEDS ORDERED: PATIENT MAY USE OWN MEDS, ALL PO SCH (10:45)
[2018-10-04] MEDS ORDERED: ACETAMINOPHEN 325 MG TABLET PO PRN (10:45)
--- NOTE | 2018-10-04 10:53 | CARDIAC CATHETERIZATION ---
DATE OF SERVICE: 10/04/2018 CARDIAC CATHETERIZATION AND CORONARY INTERVENTION REPORT INDICATIONS: The patient is a 73-year-old lady with known coronary artery disease, who has had stenting of the left anterior descending artery several years ago in [place], [place]. She has continuing coronary risk factors and has the symptoms of new onset of angina. Cardiac catheterization was carried out today after having obtained an informed consent. She was made aware of her additional risk of cardiac catheterization because of her baseline renal insufficiency (chronic kidney disease). She provided informed consent. Vigorous perioperative hydration was carried out to reduce the risk of contrast nephropathy. DESCRIPTION OF PROCEDURE: She was brought to the cardiac catheterization laboratory. Right groin was prepared and draped in the usual sterile fashion. Lidocaine 1% was used for local anesthesia. Modified Seldinger technique was used to advance a 5-Cambodian sheath into the right femoral artery. A 5-Cambodian JL3.5 catheter was used for left coronary angiography. A 5-Cambodian JR4 catheter was used for left heart catheterization. Left ventricular angiography was not performed. This was to save contrast. A 5-Cambodian JR4 catheter was used for right coronary angiography. PERCUTANEOUS INTERVENTION OF THE LEFT ANTERIOR DESCENDING: Following completion of the diagnostic procedure, we carried out percutaneous intervention to the left anterior descending, which was exhibiting 95% stenosis in the proximal portion of the proximally placed left anterior descending artery stent. We exchanged the sheath over a wire for a 6-Cambodian sheath. We used a 5-Cambodian JL3.5 catheter. We were able to advance wires across the lesion with moderate difficulty, but it appears that the wire was going through a proximal strut that probably projects into the left main coronary. We removed this guide and used a 6-Cambodian Q4 guide. This was to provide a different angle of approach to the left anterior descending, which had a sharp, 90 degree takeoff from the left main coronary artery. We used a Whisper extra support wire. We crossed the lesion and the tip was placed in the distal vessel. We advanced an Emerge 3.0 x 15 mm balloon. Balloon angioplasty was carried out to 16 atmospheres. Subsequent angiography revealed less than 10% stenosis at the previous site of 95% stenosis and flow throughout the vessel is normal. She tolerated the procedure well. She received a double bolus of Integrilin during the procedure and 5000 units of intravenous heparin. At the end of the procedure, angiography of the right femoral artery was carried through the sheath and Mynx was used to achieve hemostasis. HEMODYNAMICS: Left ventricular end-diastolic pressure following coronary angiography was 14 mmHg. There was no significant pressure gradient on pullback across the aortic valve. The ascending aortic pressure was 150/59 with a mean of 90 mmHg. CORONARY ANGIOGRAPHY: Coronary calcification is seen. Left main coronary artery has approximately 30% ostial stenosis. The left anterior descending artery has a stent in its ostial, proximal and mid portion. This stent was exhibiting 95% proximal stenosis through which successful balloon angioplasty was carried out for reduction of stenosis to less than 10%. The rest of the coronary vessels have diffuse moderate disease. The right coronary artery is dominant. CONCLUSIONS: 1. Coronary artery disease primarily consisting of 95% in-stent restenosis in the proximal left anterior descending artery that was treated successfully with the balloon angioplasty with reduction of stenosis to less than 10%. The rest of the coronary vessels have diffuse moderate disease. 2. Mildly elevated left ventricular end-diastolic pressure. DISCUSSION AND RECOMMENDATIONS: Risk factor modification has been reviewed. She is being hospitalized for overnight observation. The previous cardiac regimen, including dual antiplatelet therapy is being continued. Job ID: [id number] DocumentID: [id number] Dictated Date: 10/04/2018 10:30:09 Mix Technician Date: 10/04/2018 10:53:10 Dictated By: CHRISTY ESQUIVEL MD, MA, FACP, FACC,
--- NOTE | 2018-10-04 14:01 | Cardiac Procedure Note-CS/ASA ---
Pre-Procedure Note Pre-Op Procedure Note H&P Reviewed The H&P was reviewed, patient examined and no changes noted. Date H&P Reviewed: Oct 04, 2018 Time H&P Reviewed: 08:45 Conscious Sedation Pre-Proced Time 08:45 ASA Score 3 For ASA 3 and 4: Consider anesthesia and medical clearance. Also, for patients with a history of failed moderate sedation consider anesthesia. Airway Lungs Heart ASA score ASA 1: a normal healthy patient ASA 2: a patient with a mild systemic disease (mid diabetes, controlled hypertension, obesity ASA 3: a patient with a severe systemic disease that limits activity (angina , COPD, prior Myocardial infarction) ASA 4: a patient with an incapacitating disease that is a constant threat to life (CHF, renal failure) ASA 5: a moribund patient not expected to survive 24 hrs. (ruptured aneurysm) ASA 6: a declared brain- patient whose organs are being harvested. For emergent operations, add the letter E after the classification Mallampati Classification Grade 2 Sedation Plan Analgesia, Amnesia, Plan communicated to team members, Discussed options with patient/fam, Discussed risks with patient/fam The patient is an appropriate candidate to undergo the planned procedure, sedation, and anesthesia. The patient immediately re-assessed prior to indication. CHRISTY ESQUIVEL MD FACP FAC CCDS Oct 04, 2018 14:00
[2018-10-04] MEDS ORDERED: ASPI-999 PO (15:27)
--- NOTE | 2018-10-04 16:55 | NUR ---
THIS NURSE PAGED DR. ESQUIVEL REGARDING PATIENT BP, BEING HYPERTENSIVE ET STEADILY INCLINING. MOST RECENT BP 200/86. DR. ESQUIVEL CALLED BACK, NEW ORDER GIVEN FOR AMLODIPINE 10 MG NOW ET DAILY. EMAR UPDATED.
[2018-10-04] MEDS ORDERED: amLODIPine 10 MG (NORVASC) TAB PO NR (17:15)
[2018-10-04] MEDS ORDERED: doxAzosin 2 MG (CARDURA) TAB PO SCH (21:00)
--- NOTE | 2018-10-05 | NUR ---
PT C/O OF IV PUMP BEEPING TOO MUCH AND THAT SHE IS "TIRED OF BEING HOOKED UP TO THE DAMN THING." PT ALSO ASKED THIS RN IF " THE PUMP RATE COULD BE SPED UP SO THE BAG WOULD FINISH QUICKER." THIS RN EDUCATED PT ON DR ORDERS. PT REFUSED TO BE HOOKED UP TO IV ANY LONGER. THIS RN EDUCATED PT AGAIN ON WHY THE IV FLUIDS WERE BEING ADMINISTERED. PT STILL INSISTED ON BEING UNHOOKED. THIS RN UNHOOKED IV FLUIDS. WILL CONTINUE TO MONITOR.
[2018-10-05] MEDS: NS IV 1000 ML 1,000 ML IV SCH ×2 (00:54)
[2018-10-05 03:54] LABS: HEMOGLOBIN 12.1 G/DL (11.5-16.0); MEAN PLATELET VOLUME 10.3 FL (7.4-10.4); RED CELL DISTRIBUTION WIDTH 14.4 % (10.0-14.5); WHITE BLOOD COUNT 9.4 10^3/uL (4.3-11.0)
[2018-10-05 04:13] VITALS: BP 181/76
[2018-10-05 04:13] LABS: CALCIUM 10.2 MG/DL (8.5-10.1); CREATININE SERUM 1.39 MG/DL (0.60-1.30); POTASSIUM 3.9 MMOL/L (3.6-5.0)
[2018-10-05] MEDS ORDERED: AMLO5TAB9 PO (07:32)
--- NOTE | 2018-10-05 07:32 | Discharge Inst-Post CATH ---
Discharge Inst-CATH/EP Post Cardiac Cath/EP D/C Inst CARDIAC CATH DISCHARGE INSTRUCTIONS *Hold Metformin for 48 hours post heart cath. ACTIVITY * Go Home directly and rest. * Limit activity of the leg (or wrist if it was used) for 7 days including aerobics, swimming, jogging, bicycling, etc. * Restrict stair-climbing for 7 days if possible, if not, climb up with your non -cath leg, then bring together on the same step. * Avoid lifting, pushing, pulling or excessive movement of the affected extremity for 7 days. * Customary sexual activity may be resumed after 2 days-use caution not to use a position that strains or causes pain to the affected extremity. * No driving for 24 hours. * NO SMOKING. * Avoid straining for bowel movements for 7 days. * Gentle walking on level ground is allowed. * Returning to work will depend on the type of procedure and the results. Your doctor will discuss this with you. CALL YOUR DOCTOR FOR ANY OF THE FOLLOWING: *If bleeding from the puncture site occurs- Apply gentle pressure to site with clean cloth and call your doctor or EMS. * If a knot or lump forms under the skin, increases in size, or causes pain. * If bruising appears to be worsening or moving further down your leg instead of disappearing. * Temperature above 101 F. CARE OF YOUR GROIN INCISION; * Bruising or purple discoloration of the skin near the puncture site is common. * You may shower only, no bathtub bathing for 5 days. Be careful to avoid slipping as your leg may feel stiff. * If a closure device was used on your femoral artery, please see the attached guide regarding care of the device and your leg. * Leave the dressing on, until removed by office staff. CARE OF YOUR WRIST INCISION; * Bruising or purple discoloration of the skin near the puncture site is common. * You may shower. * DO NOT submerge wrist. * Leave dressing on, until removed by office staff.. DANIEL GARCÍA MD Oct 05, 2018 07:32
--- NOTE | 2018-10-05 07:35 | Cardiology Progress Note ---
Subjective Date Seen by Provider: Oct 05, 2018 Time Seen by Provider: 07:33 Subjective/Events-last exam patient is feeling well. Denied any chest pain, groin is healing well, blood pressure is poorly controlled Review of Systems General: No Chills, No Night Sweats, No Fatigue, No Malaise, No Appetite, No Other HEENT: No Head Aches, No Visual Changes, No Eye Pain, No Ear Pain, No Dysphasia , No Sinus Congestion, No Post Nasal Drip, No Sore Throat, No Other Pulmonary: No Dyspnea, No Cough, No Pleuritic Chest Pain, No Other Cardiovascular: No: Chest Pain, Palpitations, Orthopnea, Paroxysmal Noc. Dyspnea, Edema, Lt Headedness, Other Objective-Cardiology Exam Last Set of Vital Signs Vital Signs 10/05/18 04:13 Temp 97.2 Pulse 77 Resp 16 B/P (MAP) 181/76 (111) Pulse Ox 98 O2 Delivery Room Air Capillary Refill : Less Than 3 Seconds I&O Intake and Output 10/05/18 00:00 Intake Total 690 ml Output Total 901 ml Balance -211 ml Intake Oral 690 ml Output Urine Total 900 ml Stool Total 1 ml # Voids 3 General: Alert, Oriented X3, Cooperative HEENT: Atraumatic, PERRLA Neck: Supple, No JVD, No Thyromegaly Lungs: Clear to Auscultation, Normal Air Movement Heart: Regular Rate, Normal S1, Normal S2, No Murmurs Abdomen: Normal Bowel Sounds, Soft, No Tenderness, No Hepatosplenomegaly, No Masses Extremities: No Clubbing, No Cyanosis, No Edema, Normal Pulses, No Tenderness/ Swelling Skin: No Rashes, No Breakdown, No Significant Lesion Neuro: Normal Gait, Normal Speech, Strength at 5/5 X4 Ext, Normal Tone, Sensation Intact Psych/Mental Status: Mental Status NL, Mood NL Results Lab Laboratory Tests 10/05/18 03:20 A/P-Cardiology Admission Diagnosis coronary artery disease Hypertension Hyperlipidemia Chronic kidney disease stage III Assessment/Plan coronary artery disease status post angioplasty for in-stent restenosis with good results, had extensive diffuse disease, managed by Dr. Fernandes Hypertension, poorly controlled, I will add amlodipine 5 mg daily to her current medication monitor blood pressure Hyperlipidemia, managed by Dr. Fernandes Chronic kidney disease stage III, renal function is slightly better, educated on increasing fluid intake Diabetes mellitus, followed and managed by primary care physician DANIEL GARCÍA MD Oct 05, 2018 07:35
[2018-10-05] MEDS ORDERED: MAGNESIUM OXIDE (MAG-OX)400 MG TAB PO SCH (08:00)
--- NOTE | 2018-10-05 08:43 | NUR ---
Pt stated that she would like to take her morning meds when she gets home. She does not want this RN to administer meds due to her leaving soon.
[2018-10-05] MEDS ORDERED: amLODIPine 10 MG (NORVASC) TAB PO SCH (09:00)
[2018-10-05] MEDS ORDERED: NON-FORMULARY MEDICATION 1 EA EA (Fesoterodine Fumarate (Toviaz) 4 MG) PO SCH (09:00)
[2018-10-05] MEDS ORDERED: PANTOPRAZOLE 40 MG (PROTONIX) TAB PO SCH (09:00)
[2018-10-05] MEDS ORDERED: LOSARTAN 100 MG (COZAAR) TABLET PO SCH (09:00)
[2018-10-05] MEDS ORDERED: ASPIRIN E.C. 81 MG (ECOTRIN) TAB PO SCH (09:00)
[2018-10-05] MEDS ORDERED: CLOPIDOGREL 75 MG (PLAVIX) TABLET PO SCH (09:00)
[2018-10-05] MEDS ORDERED: glipiZIDE XL 5 MG (GLUCOTROL XL) TAB PO SCH (09:00)
[2018-10-05] MEDS ORDERED: ISOSORBIDE MONONITRATE 120 MG PO SCH (09:00)
== END 2018-10-05 09:14 | disposition home or self-care (01) ==
LOC: CARD 06:54 → ICU 10:42 → CATH 10-05 09:14
PROVIDERS: ATTEND Internal Medicine Cardiovascular Disease
DX: T82.855A Stenosis of coronary artery stent, initial encounter (principal); I25.10 Atherosclerotic heart disease of native coronary artery without angina pectoris; I12.9 Hypertensive chronic kidney disease with stage 1 through stage 4 chronic kidney disease, or unspecified chronic kidney disease; N18.3 Chronic kidney disease, stage 3 (moderate); E11.22 Type 2 diabetes mellitus with diabetic chronic kidney disease; E11.40 Type 2 diabetes mellitus with diabetic neuropathy, unspecified; E78.5 Hyperlipidemia, unspecified; J44.9 Chronic obstructive pulmonary disease, unspecified; G47.33 Obstructive sleep apnea (adult) (pediatric); D50.9 Iron deficiency anemia, unspecified; C94.6 Myelodysplastic disease, not elsewhere classified; I73.9 Peripheral vascular disease, unspecified; E04.2 Nontoxic multinodular goiter; Z79.02 Long term (current) use of antithrombotics/antiplatelets; Z79.82 Long term (current) use of aspirin; Z79.899 Other long term (current) drug therapy; Z87.891 Personal history of nicotine dependence
CPT/HCPCS: 36415; 80048; 80053; 80061; 85027; 85610; 85730; 87081; 93005; 93458

== ENCOUNTER → 2018-11-03 | Outpatient (CLI) | payer MEDICARE, OTHER ==
[~2018-11-03] MED LIST changes: +AMLO5TAB9 PO; +ASPI-999 PO; +BISO1TAB6 PO; +DOXA2TAB2 PO; +FESO4TAB PO; +GLIP-30 PO; +ISOS120T9 PO; +LOSA100T57 PO; +MAGN400T39 PO; +PANT40TA3 PO
[2018-11-03 15:24] LABS: BASOPHILS # (AUTO) 0.1 10^3/uL (0.0-0.1); BASOPHILS % (AUTO) 1 % (0-10); EOSINOPHILS # (AUTO) 0.3 10^3/uL (0.0-0.3); EOSINOPHILS % (AUTO) 3 % (0-10); HEMATOCRIT 37 % (35-52); HEMOGLOBIN 11.9 G/DL (11.5-16.0); LYMPHOCYTES # (AUTO) 1.5 X 10^3 (1.0-4.0); LYMPHOCYTES % (AUTO) 14 % (12-44); MEAN CORPUSCULAR HEMOGLOBIN 31 PG (25-34); MEAN CORPUSCULAR HGB CONC 32 G/DL (32-36); MEAN CORPUSCULAR VOLUME 98 FL (80-99); MEAN PLATELET VOLUME 9.9 FL (7.4-10.4); MONOCYTES # (AUTO) 0.7 X 10^3 (0.0-1.0); MONOCYTES % (AUTO) 7 % (0-12); NEUTROPHILS # (AUTO) 8.1 X 10^3 (1.8-7.8); NEUTROPHILS % (AUTO) 76 % (42-75); PLATELET COUNT 435 10^3/uL (130-400); RED CELL DISTRIBUTION WIDTH 13.9 % (10.0-14.5); WHITE BLOOD COUNT 10.8 10^3/uL (4.3-11.0)
[2018-11-03 15:48] LABS: ALBUMIN 4.2 GM/DL (3.2-4.5); BILIRUBIN,TOTAL 0.4 MG/DL (0.1-1.0); CALCIUM 10.1 MG/DL (8.5-10.1); CREATININE SERUM 1.63 MG/DL (0.60-1.30); MAGNESIUM 1.8 MG/DL (1.8-2.4); POTASSIUM 3.8 MMOL/L (3.6-5.0); TOTAL PROTEIN 6.9 GM/DL (6.4-8.2)
== END ==
LOC: LAB 15:09
PROVIDERS: ATTEND Internal Medicine Cardiovascular Disease
DX: I25.10 Atherosclerotic heart disease of native coronary artery without angina pectoris (principal); I12.9 Hypertensive chronic kidney disease with stage 1 through stage 4 chronic kidney disease, or unspecified chronic kidney disease; N18.3 Chronic kidney disease, stage 3 (moderate); J43.8 Other emphysema; R06.02 Shortness of breath
CPT/HCPCS: 36415; 80053; 83735; 85025

== ENCOUNTER 2019-01-04 07:00 | Day surgery (SDC) | payer MEDICARE, OTHER ==
[2019-01-04] VITALS (11 sets, daily range): BP systolic 123–191; BP diastolic 60–82
[~2019-01-04] VITALS: Ht 157.5 cm; Wt 75.5 kg
[2019-01-04 07:39] LABS: ABSOLUTE RETIC # 111 10e9/L (24-90); BASOPHILS # (AUTO) 0.1 10^3/uL (0.0-0.1); BASOPHILS % (AUTO) 1 % (0-10); EOSINOPHILS # (AUTO) 0.4 10^3/uL (0.0-0.3); EOSINOPHILS % (AUTO) 3 % (0-10); HEMATOCRIT 38 % (35-52); HEMOGLOBIN 12.4 G/DL (11.5-16.0); LYMPHOCYTES # (AUTO) 1.5 X 10^3 (1.0-4.0); LYMPHOCYTES % (AUTO) 12 % (12-44); MEAN CORPUSCULAR HEMOGLOBIN 31 PG (25-34); MEAN CORPUSCULAR HGB CONC 33 G/DL (32-36); MEAN CORPUSCULAR VOLUME 96 FL (80-99); MEAN PLATELET VOLUME 10.2 FL (7.4-10.4); MONOCYTES # (AUTO) 0.8 X 10^3 (0.0-1.0); MONOCYTES % (AUTO) 6 % (0-12); NEUTROPHILS # (AUTO) 9.6 X 10^3 (1.8-7.8); NEUTROPHILS % (AUTO) 78 % (42-75); PLATELET COUNT 427 10^3/uL (130-400); RED CELL DISTRIBUTION WIDTH 14.9 % (10.0-14.5); WHITE BLOOD COUNT 12.3 10^3/uL (4.3-11.0)
[2019-01-04 07:48] LABS: INR 0.9 (0.8-1.4); PROTHROMBIN TIME PATIENT 12.6 SEC (12.2-14.7)
[2019-01-04 08:14] LABS: EOSINOPHILS % (MANUAL) 5 %; LYMPHOCYTES % (MANUAL) 17 %; MONOCYTES % (MANUAL) 2 %; NEUTROPHILS % (MANUAL) 71 %; REACTIVE LYMPHOCYTES 5 %
[2019-01-04 08:15] LABS: RBC MORPH NORMAL
[2019-01-04] MEDS ORDERED: NS IV 1000 ML 1,000 ML IV STA (08:17)
[2019-01-04] MEDS ORDERED: MIDAZOLAM 2 MG/2 ML (VERSED) VIAL IVP ONE (08:30)
[2019-01-04] MEDS ORDERED: fentaNYL INJECTION 100 MCG/2 ML AMP IVP ONE (08:30)
[2019-01-04] MEDS ORDERED: LIDOCAINE 1% INJ 20 ML 20 ML VIAL INJ ONE (08:30)
--- NOTE | 2019-01-04 09:51 | Pre-Op Note & Conscious Sedat ---
Pre-Operative Progress Note H&P Reviewed The H&P was reviewed, patient examined and no changes noted. Date H&P Reviewed: Jan 04, 2019 Time H&P Reviewed: 09:00 Pre-Op Diagnosis: Anemia Conscious Sedation Pre-Proced Time 09:00 ASA Score 2 For ASA 3 and 4: Consider anesthesia and medical clearance. Also, for patients with a history of failed moderate sedation consider anesthesia. Airway Lungs Heart ASA score ASA 1: a normal healthy patient ASA 2: a patient with a mild systemic disease (mid diabetes, controlled hypertension, obesity ASA 3: a patient with a severe systemic disease that limits activity (angina, COPD, prior Myocardial infarction) ASA 4: a patient with an incapacitating disease that is a constant threat to life (CHF, renal failure) ASA 5: a moribund patient not expected to survive 24 hrs. (ruptured aneurysm) ASA 6: a declared brain- patient whose organs are being harvested. For emergent operations, add the letter E after the classification Mallampati Classification Grade 2 Sedation Plan Analgesia, Amnesia, Plan communicated to team members, Discussed options with patient/fam, Discussed risks with patient/fam The patient is an appropriate candidate to undergo the planned procedure, sedation, and anesthesia. The patient immediately re-assessed prior to indication. CINDY MEMBRENO MD Jan 04, 2019 09:51
[2019-01-04] MEDS ORDERED: HYDROcodone/APAP 5 MG/325 MG (LORTAB) TAB PO PRN (10:45)
--- NOTE | 2019-01-04 12:40 | Diagnostic Imaging Report ---
INDICATION: Anemia. TECHNIQUE: Patient was brought to the CT suite, placed on table in a prone position. Axial imaging through the pelvis was performed to evaluate appropriate entry site. The procedure was performed utilizing conscious sedation with radiology nursing and constant patient monitoring. Patient was administered a total of 50 mcg of fentanyl intravenously and 1 mg of Versed intravenously. Total procedure time was 5 minutes. FINDINGS: Skin of the right posterior pelvis was prepped and draped in the usual sterile fashion. Small amount of 1% lidocaine was utilized for local anesthesia. Bone marrow biopsy needle was advanced, placed with its tip adjacent to the posterior cortex of the right iliac bone. The bone marrow needle was advanced through the cortex utilizing the bone marrow drill. Two bone marrow aspirates were obtained. Next, drill was utilized to obtain a core of the bone marrow. Needle was withdrawn and hemostasis was obtained using manual compression. Patient tolerated the procedure well and left the department in stable condition. IMPRESSION: Successful CT-guided bone marrow aspiration and biopsy, utilizing conscious sedation. Dictated by: Dictated on workstation # [id number]
== END 2019-01-04 12:00 | disposition home or self-care (01) ==
LOC: RAD 07:00
PROVIDERS: ATTEND Internal Medicine Hematology & Oncology
DX: D50.9 Iron deficiency anemia, unspecified (principal); D47.1 Chronic myeloproliferative disease; M19.91 Primary osteoarthritis, unspecified site; I65.23 Occlusion and stenosis of bilateral carotid arteries; N18.3 Chronic kidney disease, stage 3 (moderate); J44.9 Chronic obstructive pulmonary disease, unspecified; I25.10 Atherosclerotic heart disease of native coronary artery without angina pectoris; E11.40 Type 2 diabetes mellitus with diabetic neuropathy, unspecified; E78.5 Hyperlipidemia, unspecified; I12.9 Hypertensive chronic kidney disease with stage 1 through stage 4 chronic kidney disease, or unspecified chronic kidney disease; G25.81 Restless legs syndrome; J30.9 Allergic rhinitis, unspecified; G47.10 Hypersomnia, unspecified; Z79.82 Long term (current) use of aspirin; Z79.899 Other long term (current) drug therapy; Z79.84 Long term (current) use of oral hypoglycemic drugs; Z88.5 Allergy status to narcotic agent
CPT/HCPCS: 36415; 36430; 38222; 77012; 82962; 85007; 85027; 85045; 85610; 85730; 99156

== ENCOUNTER 2019-01-11 10:42 | Outpatient (RCR) | payer MEDICARE, OTHER ==
[2018-12-22 13:29] LABS: BASOPHILS # (AUTO) 0.1 10^3/uL (0.0-0.1); BASOPHILS % (AUTO) 1 % (0-10); EOSINOPHILS # (AUTO) 0.3 10^3/uL (0.0-0.3); EOSINOPHILS % (AUTO) 3 % (0-10); HEMATOCRIT 37 % (35-52); HEMOGLOBIN 11.8 G/DL (11.5-16.0); LYMPHOCYTES # (AUTO) 1.6 X 10^3 (1.0-4.0); LYMPHOCYTES % (AUTO) 14 % (12-44); MEAN CORPUSCULAR HEMOGLOBIN 31 PG (25-34); MEAN CORPUSCULAR HGB CONC 32 G/DL (32-36); MEAN CORPUSCULAR VOLUME 97 FL (80-99); MONOCYTES # (AUTO) 0.7 X 10^3 (0.0-1.0); MONOCYTES % (AUTO) 6 % (0-12); NEUTROPHILS # (AUTO) 9.2 X 10^3 (1.8-7.8); NEUTROPHILS % (AUTO) 77 % (42-75); PLATELET COUNT 375 10^3/uL (130-400); RED CELL DISTRIBUTION WIDTH 14.4 % (10.0-14.5); WHITE BLOOD COUNT 11.9 10^3/uL (4.3-11.0)
[2018-12-22 13:47] LABS: ALBUMIN 4.4 GM/DL (3.2-4.5); BILIRUBIN,TOTAL 0.4 MG/DL (0.1-1.0); CALCIUM 10.3 MG/DL (8.5-10.1); CREATININE SERUM 1.66 MG/DL (0.60-1.30); POTASSIUM 4.1 MMOL/L (3.6-5.0); TOTAL PROTEIN 6.9 GM/DL (6.4-8.2)
[2018-12-28 09:49] LABS: ABSOLUTE RETIC # 70 10e9/L (24-90); BASOPHILS # (AUTO) 0.1 10^3/uL (0.0-0.1); BASOPHILS % (AUTO) 1 % (0-10); EOSINOPHILS # (AUTO) 0.3 10^3/uL (0.0-0.3); EOSINOPHILS % (AUTO) 3 % (0-10); HEMATOCRIT 38 % (35-52); LYMPHOCYTES # (AUTO) 1.4 X 10^3 (1.0-4.0); LYMPHOCYTES % (AUTO) 12 % (12-44); MEAN CORPUSCULAR HEMOGLOBIN 31 PG (25-34); MEAN CORPUSCULAR HGB CONC 32 G/DL (32-36); MEAN CORPUSCULAR VOLUME 97 FL (80-99); MEAN PLATELET VOLUME 10.5 FL (7.4-10.4); MONOCYTES # (AUTO) 0.7 X 10^3 (0.0-1.0); MONOCYTES % (AUTO) 6 % (0-12); NEUTROPHILS # (AUTO) 9.2 X 10^3 (1.8-7.8); NEUTROPHILS % (AUTO) 79 % (42-75); PLATELET COUNT 412 10^3/uL (130-400); RED CELL DISTRIBUTION WIDTH 14.6 % (10.0-14.5); WHITE BLOOD COUNT 11.6 10^3/uL (4.3-11.0)
[2018-12-28 10:25] LABS: BASOPHILS % (MANUAL) 1 %; EOSINOPHILS % (MANUAL) 2 %; LYMPHOCYTES % (MANUAL) 15 %; MONOCYTES % (MANUAL) 6 %; NEUTROPHILS % (MANUAL) 76 %
[2018-12-28 10:26] LABS: RBC MORPH NORMAL
== END 2019-03-22 | disposition home or self-care (01) ==
LOC: ONC 10:42
PROVIDERS: ATTEND Internal Medicine Hematology & Oncology
DX: D47.1 Chronic myeloproliferative disease (principal); D50.9 Iron deficiency anemia, unspecified; I12.9 Hypertensive chronic kidney disease with stage 1 through stage 4 chronic kidney disease, or unspecified chronic kidney disease; E11.22 Type 2 diabetes mellitus with diabetic chronic kidney disease; N18.3 Chronic kidney disease, stage 3 (moderate); I25.10 Atherosclerotic heart disease of native coronary artery without angina pectoris; E78.5 Hyperlipidemia, unspecified; M79.7 Fibromyalgia; Z48.812 Encounter for surgical aftercare following surgery on the circulatory system; Z87.891 Personal history of nicotine dependence; Z79.899 Other long term (current) drug therapy; E04.2 Nontoxic multinodular goiter
CPT/HCPCS: 36415; 80053; 82728; 83615; 84443; 85007; 85025; 85027; 85045; 99213

== ENCOUNTER 2019-03-24 15:18 | Emergency (ER) | payer MEDICARE, OTHER ==
[~2019-03-24] VITALS: Ht 157 cm; Wt 66.6 kg
--- NOTE | 2019-03-24 15:44 | ED General ---
General Chief Complaint: Glucose Problems Stated Complaint: HIGH BLOOD SUGAR Source of Information: Patient, Family Exam Limitations: No Limitations History of Present Illness Date Seen by Provider: Mar 24, 2019 Time Seen by Provider: 15:39 Initial Comments This 73-year-old white female presents with a complaint of elevated blood suga rs. The patient has noted her blood sugar has consistently been greater than 202 300 since she switched from glipizide from metformin. The patient is taking 10 mg glipizide daily. Next Patient denies associated fever, chills, dysuria, frequency, flank pain, productive cough, or other new medication. Allergies and Home Medications Allergies Coded Allergies: acetaminophen (Verified Allergy, Unknown, 09/01/17) atorvastatin calcium (Unverified Allergy, Unknown, 07/27/16) cefdinir (Verified Allergy, Unknown, 09/01/17) codeine (Unverified Allergy, Unknown, 07/27/16) doxycycline (Verified Allergy, Unknown, 09/01/17) escitalopram oxalate (Unverified Allergy, Unknown, 07/27/16) niacin (Unverified Allergy, Unknown, 07/27/16) oxycodone (Verified Allergy, Unknown, 09/01/17) simvastatin (Unverified Allergy, Unknown, 07/27/16) tramadol (Unverified Allergy, Unknown, 07/27/16) Home Medications Aspirin 81 Mg Tab.chew, 81 MG PO DAILY Prescribed by: JENNIFER COTTER on 10/04/18 1527 Bisoprolol Fumarate/Hctz 1 Each Tablet, 1 EACH PO DAILY, (Reported) Clopidogrel Bisulfate 75 Mg Tablet, 1 EACH PO DAILY, (Reported) Doxazosin Mesylate 2 Mg Tablet, 6 MG PO BID, (Reported) Glipizide 5 Mg Tab.er.24, 5 MG PO DAILY, (Reported) Isosorbide Mononitrate 120 Mg Tab.er.24h, 120 MG PO DAILY, (Reported) Losartan Potassium 100 Mg Tablet, 100 MG PO DAILY, (Reported) Pantoprazole Sodium 40 Mg Tablet.dr, 40 MG PO DAILY, (Reported) Patient Home Medication List Home Medication List Reviewed: Yes Review of Systems Review of Systems Constitutional: No chills, No fever EENTM: no symptoms reported Respiratory: No cough Cardiovascular: No chest pain Gastrointestinal: No abdominal pain, No diarrhea, No nausea, No vomiting Genitourinary: no symptoms reported : No Musculoskeletal: no symptoms reported Skin: no symptoms reported Psychiatric/Neurological: No Symptoms Reported Hematologic/Lymphatic: No Symptoms Reported Immunological/Allergic: no symptoms reported Past Lyfosnx-Gjrokd-Dwaqrv Hx Past Med/Social Hx: Reviewed Nursing Past Med/Soc Hx Patient Social History Type Used: Cigarettes Former Smoker, Quit: Aug 15, 2012 2nd Hand Smoke Exposure: No Recent Foreign Travel: No Contact w/Someone Who Travel: No Recent Hopitalizations: No Immunizations Up To Date Tetanus Booster (TDap): Less than 5yrs PED Vaccines UTD: No Date of Pneumonia Vaccine: Sep 26, 2009 Date of Influenza Vaccine: Mar 22, 2012 Past Medical History Surgeries: Yes (RENAL STENTS ,LEFT KNEE ARTH, ABCESS ON KIDN, RECTOCILE, BLADDER SLING) Adenoidectomy, Bladder Surgery, Coronary Stent, Gallbladder, Hysterectomy, Orthopedic Respiratory: Yes COPD Currently Using CPAP: Yes Cardiac: Yes Coronary Artery Disease, High Cholesterol, Hypertension Neurological: No Reproductive Disorders: No Female Reproductive Disorders: Denies Sexually Transmitted Disease: No HIV/AIDS: No Genitourinary: Yes (CHRONIC KIDNEY DZ) Gastrointestinal: Yes (DIVERTICULITIS) Gastroesophageal Reflux, Polyps Musculoskeletal: Yes (, CERVICAL STENOSIS) Fibromyalgia Endocrine: Yes (history of thyroid nodules) Adrenal Disease, Diabetes, Non-Insulin dep Loss of Vision: Bilateral Hearing Impairment: Hard of Hearing Cancer: No Psychosocial: No Integumentary: No Blood Disorders: Yes (LEUKOCYTOSIS AND THROMBOSYTOSIS) Adverse Reaction/Blood Tranf: No Family Medical History No Pertinent Family Hx Physical Exam Vital Signs Vital Signs - First Documented 03/24/19 15:18 Temp 36.7 Pulse 80 Resp 15 B/P (MAP) 171/93 (119) Pulse Ox 97 O2 Delivery Room Air Capillary Refill : Height, Weight, BMI Height: 5'2.00" Weight: 166lbs. 6.0oz. 75.303283gv; 28.4 BMI Method:Stated General Appearance: No Apparent Distress, WD/WN HEENT: Normal ENT Inspection Neck: Normal Inspection Respiratory: Lungs Clear Cardiovascular: Regular Rate, Rhythm Gastrointestinal: Normal Bowel Sounds Back: Normal Inspection Extremity: Normal Capillary Refill, Normal Inspection, Normal Range of Motion, Non Tender Neurologic/Psychiatric: Alert, Oriented x3, No Motor/Sensory Deficits, Normal Mood/Affect Skin: Normal Color, Warm/Dry Progress/Results/Core Measures Suspected Sepsis SIRS Temperature: Pulse: Respiratory Rate: Blood Pressure / Mean: Laboratory Tests 03/24/19 15:30: Creatinine 1.91H, Total Bilirubin 0.4 Results/Orders Lab Results Laboratory Tests Test 03/24/19 15:30 03/24/19 15:42 Range/Units Sodium Level 135 135-145 MMOL/L Potassium Level 4.8 3.6-5.0 MMOL/L Chloride Level 104 98-107 MMOL/L Carbon Dioxide Level 22 21-32 MMOL/L Anion Gap 9 5-14 MMOL/L Blood Urea Nitrogen 40 H 7-18 MG/DL Creatinine 1.91 H 0.60-1.30 MG/DL Estimat Glomerular Filtration Rate 26 BUN/Creatinine Ratio 21 Glucose Level 250 H 70-105 MG/DL Calcium Level 10.4 H 8.5-10.1 MG/DL Corrected Calcium 10.0 8.5-10.1 MG/DL Total Bilirubin 0.4 0.1-1.0 MG/DL Aspartate Amino Transf (AST/SGOT) 23 5-34 U/L Alanine Aminotransferase (ALT/SGPT) 25 0-55 U/L Alkaline Phosphatase 93 40-136 U/L Total Protein 7.1 6.4-8.2 GM/DL Albumin 4.5 3.2-4.5 GM/DL Glucometer 246 H 70-110 MG/DL My Orders Orders - ALISON CLOUD MD Comprehensive Metabolic Panel (03/24/19 15:37) Hemoglobin A1c (03/24/19 15:37) Vital Signs/I&O 03/24/19 15:18 Temp 36.7 Pulse 80 Resp 15 B/P (MAP) 171/93 (119) Pulse Ox 97 O2 Delivery Room Air Capillary Refill : Progress Note : Time: 15:43 Progress Note Discussed the patient's presentation with her and her . I ordered a hemoglobin A1c as well as a CMP to patient's glucose currently. Reviewing the patient's records of her glucose at home I can see where the patient's glucose became more elevated after she discontinued metformin began taking 10 mg of glipizide daily. The patient's glucose today was 246. I discussed increasing the patient's "10 mg twice a day and recommended following up with Dr. King. Departure Impression Primary Impression: Hyperglycemia Disposition: 01 HOME, SELF-CARE Condition: Improved Departure-Patient Inst. Decision time for Depature: 16:17 Referrals: LUCERO KING MD, WEN-CHOU MD (PCP/Family) Primary Care Physician Patient Instructions: Hyperglycemia, Adult (DC) Add. Discharge Instructions: Increase her glipizide to 10 mg twice a day. Follow-up with Dr. King next week. Return if any problems or questions. All discharge instructions reviewed with patient and/or family. Voiced understanding. ALISON CLOUD MD Mar 24, 2019 15:43
[2019-03-24 16:14] LABS: ALBUMIN 4.5 GM/DL (3.2-4.5); BILIRUBIN,TOTAL 0.4 MG/DL (0.1-1.0); CALCIUM 10.4 MG/DL (8.5-10.1); CREATININE SERUM 1.91 MG/DL (0.60-1.30); POTASSIUM 4.8 MMOL/L (3.6-5.0); TOTAL PROTEIN 7.1 GM/DL (6.4-8.2)
[2019-03-24 16:45] VITALS: BP 113/65
== END 2019-03-24 16:51 | disposition home or self-care (01) ==
LOC: EDUNIT# 15:18 → ER 15:20
DX: E11.65 Type 2 diabetes mellitus with hyperglycemia (principal); E11.22 Type 2 diabetes mellitus with diabetic chronic kidney disease; I12.9 Hypertensive chronic kidney disease with stage 1 through stage 4 chronic kidney disease, or unspecified chronic kidney disease; N18.9 Chronic kidney disease, unspecified; E78.00 Pure hypercholesterolemia, unspecified; I25.10 Atherosclerotic heart disease of native coronary artery without angina pectoris; K21.9 Gastro-esophageal reflux disease without esophagitis; M79.7 Fibromyalgia; Z90.89 Acquired absence of other organs; Z90.710 Acquired absence of both cervix and uterus; Z95.5 Presence of coronary angioplasty implant and graft; Z88.6 Allergy status to analgesic agent; Z88.1 Allergy status to other antibiotic agents; Z88.5 Allergy status to narcotic agent; Z88.8 Allergy status to other drugs, medicaments and biological substances; Z79.82 Long term (current) use of aspirin; Z79.02 Long term (current) use of antithrombotics/antiplatelets; Z87.891 Personal history of nicotine dependence
CPT/HCPCS: 36415; 80053; 82962; 83036

== ENCOUNTER 2019-05-27 13:42 | Emergency (ER) | payer MEDICARE, OTHER ==
[~2019-05-27] VITALS: Ht 165 cm; Wt 77.0 kg
[2019-05-27] MEDS ORDERED: HYOSCYAMINE 0.125 MG (LEVSIN) TAB PO ONE (14:45)
[2019-05-27] MEDS ORDERED: LACTATED RINGERS 1,000 ML IV SCH (14:45)
[2019-05-27 15:19] LABS: HEMOGLOBIN 11.8 G/DL (11.5-16.0); RED CELL DISTRIBUTION WIDTH 14.5 % (10.0-14.5); WHITE BLOOD COUNT 11.9 10^3/uL (4.3-11.0)
[2019-05-27 15:39] LABS: ALBUMIN 4.3 GM/DL (3.2-4.5); BILIRUBIN,TOTAL 0.3 MG/DL (0.1-1.0); CREATININE SERUM 2.12 MG/DL (0.60-1.30); POTASSIUM 4.3 MMOL/L (3.6-5.0); TOTAL PROTEIN 6.8 GM/DL (6.4-8.2)
--- NOTE | 2019-05-27 16:14 | ED GI ---
General Chief Complaint: Abdominal/GI Problems Stated Complaint: DIARRHEA -LOW BP 91/53 Nursing Triage Note: THE PT IS AMBULATORY TO THE ROOM WITHOUT DIFFICULTY. NO DISTRESS I SSEEN ON ARRIVAL. LOC IS NORMAL FOR THE PT. THE PT C/O DIARRHEA X5 DAY'S Sepsis Screen: No Definite Risk History of Present Illness Date Seen by Provider: May 27, 2019 Time Seen by Provider: 15:30 Initial Comments This a 74-year-old female who comes to the ER reporting diarrhea for 6 days and mild abdominal cramping and tenderness. She describes her bowel movements as watery diarrhea 5 to 6 times in 24 hours, denies blood in the stool. She has been tolerating fluid intake, however she is not eating as usual because she is afraid to make things worse. She denies N/V, fever or chills or chest pain. Timing/Duration: 5-6 Days Severity/Quality: Mild, Aching (Tender abdomen upon palpation ), Cramping Location: LUQ, LLQ Radiation: No Radiation Activities at Onset: None Associated Symptoms: No Fever/Chills; Fatigue; No Nausea/Vomiting, No Swelling/Mass in Abdomen Allergies and Home Medications Allergies Coded Allergies: acetaminophen (Verified Allergy, Unknown, 09/01/17) atorvastatin calcium (Unverified Allergy, Unknown, 07/27/16) cefdinir (Verified Allergy, Unknown, 09/01/17) codeine (Unverified Allergy, Unknown, 07/27/16) doxycycline (Verified Allergy, Unknown, 09/01/17) escitalopram oxalate (Unverified Allergy, Unknown, 07/27/16) niacin (Unverified Allergy, Unknown, 07/27/16) oxycodone (Verified Allergy, Unknown, 09/01/17) simvastatin (Unverified Allergy, Unknown, 07/27/16) tramadol (Unverified Allergy, Unknown, 07/27/16) Home Medications Aspirin 81 Mg Tab.chew, 81 MG PO DAILY Prescribed by: JENNIFER COTTER on 10/04/18 2597 Bisoprolol Fumarate/Hctz 1 Each Tablet, 1 EACH PO DAILY, (Reported) Clopidogrel Bisulfate 75 Mg Tablet, 1 EACH PO DAILY, (Reported) Doxazosin Mesylate 2 Mg Tablet, 6 MG PO BID, (Reported) Glipizide 5 Mg Tab.er.24, 5 MG PO DAILY, (Reported) Isosorbide Mononitrate 120 Mg Tab.er.24h, 120 MG PO DAILY, (Reported) Losartan Potassium 100 Mg Tablet, 100 MG PO DAILY, (Reported) Pantoprazole Sodium 40 Mg Tablet.dr, 40 MG PO DAILY, (Reported) Patient Home Medication List Home Medication List Reviewed: Yes Review of Systems Review of Systems Constitutional: weakness EENTM: No Symptoms Reported Respiratory: No Symptoms Reported Cardiovascular: No Symptoms Reported Gastrointestinal: Abdominal Pain; Denies Blood Streaked Stools, Denies Diarrhea, Denies Nausea; Poor Appetite; Denies Poor Fluid Intake, Denies Rectal Bleeding, Denies Vomiting; Other Genitourinary: Urgency Musculoskeletal: no symptoms reported Skin: no symptoms reported Psychiatric/Neurological: No Symptoms Reported Endocrine: No Symptoms Reported Hematologic/Lymphatic: No Symptoms Reported Past Lyoiprv-Kxinmr-Yilxew Hx Patient Social History Type Used: Cigarettes Former Smoker, Quit: Aug 15, 2012 2nd Hand Smoke Exposure: No Recent Foreign Travel: No Contact w/Someone Who Travel: No Recent Infectious Disease Expo: No Recent Hopitalizations: No Physical Abuse: No Sexual Abuse: No Mistreated: No Fear: No Immunizations Up To Date Tetanus Booster (TDap): Less than 5yrs PED Vaccines UTD: No Date of Pneumonia Vaccine: Sep 26, 2009 Date of Influenza Vaccine: Mar 22, 2012 Seasonal Allergies Seasonal Allergies: No Past Medical History Surgeries: No Adenoidectomy, Bladder Surgery, Coronary Stent, Gallbladder, Hysterectomy, Orthopedic Respiratory: No COPD Currently Using CPAP: Yes Cardiac: Yes Coronary Artery Disease, High Cholesterol, Hypertension Neurological: No Reproductive Disorders: No Female Reproductive Disorders: Denies Sexually Transmitted Disease: No HIV/AIDS: No Genitourinary: Yes (CHRONIC KIDNEY DZ) Gastrointestinal: Yes (DIVERTICULITIS) Gastroesophageal Reflux, Polyps Musculoskeletal: Yes (, CERVICAL STENOSIS) Fibromyalgia Endocrine: Yes (history of thyroid nodules) Adrenal Disease, Diabetes, Non-Insulin dep Loss of Vision: Bilateral Hearing Impairment: Hard of Hearing Cancer: No Psychosocial: No Integumentary: No Blood Disorders: Yes (LEUKOCYTOSIS AND THROMBOSYTOSIS) Adverse Reaction/Blood Tranf: No Family Medical History No Pertinent Family Hx Physical Exam Vital Signs Vital Signs - First Documented 05/27/19 14:19 Temp 36.9 Pulse 80 Resp 18 B/P (MAP) 111/62 (78) Capillary Refill : Less Than 3 Seconds Height/Weight/BMI Height: 5'2.00" Weight: 166lbs. 6.0oz. [id number]; 28.00 BMI Method:Stated General Appearance: WD/WN, no apparent distress Neck: non-tender, full range of motion Respiratory: chest non-tender, lungs clear, normal breath sounds, no respiratory distress, no accessory muscle use Cardiovascular: regular rate, rhythm, no edema, no gallop, no JVD, no murmur Gastrointestinal: normal bowel sounds, soft, no organomegaly, no pulsatile mass, tenderness Pelvic: no masses Neurologic/Psychiatric: alert, normal mood/affect, oriented x 3 Skin: normal color, warm/dry Focused Exam Time of Focused Exam: 15:30 Respiratory: Chest Non Tender, Lungs Clear, Normal Breath Sounds, No Accessory Muscle Use, No Respiratory Distress Cardiovascular: Regular Rate, Rhythm, No Edema, No Gallop, No JVD, No Murmur Skin: normal color, warm/dry Progress/Results/Core Measures Results/Orders Lab Results Laboratory Tests Test 05/27/19 15:05 Range/Units White Blood Count 11.9 H 4.3-11.0 10^3/uL Red Blood Count 3.74 L 4.35-5.85 10^6/uL Hemoglobin 11.8 11.5-16.0 G/DL Hematocrit 36 35-52 % Mean Corpuscular Volume 97 80-99 FL Mean Corpuscular Hemoglobin 32 25-34 PG Mean Corpuscular Hemoglobin Concent 33 32-36 G/DL Red Cell Distribution Width 14.5 10.0-14.5 % Platelet Count 399 130-400 10^3/uL Mean Platelet Volume 10.0 7.4-10.4 FL Sodium Level 141 135-145 MMOL/L Potassium Level 4.3 3.6-5.0 MMOL/L Chloride Level 115 H 98-107 MMOL/L Carbon Dioxide Level 18 L 21-32 MMOL/L Anion Gap 8 5-14 MMOL/L Blood Urea Nitrogen 48 H 7-18 MG/DL Creatinine 2.12 H 0.60-1.30 MG/DL Estimat Glomerular Filtration Rate 23 BUN/Creatinine Ratio 23 Glucose Level 132 H 70-105 MG/DL Calcium Level 10.0 8.5-10.1 MG/DL Corrected Calcium 9.8 8.5-10.1 MG/DL Total Bilirubin 0.3 0.1-1.0 MG/DL Aspartate Amino Transf (AST/SGOT) 18 5-34 U/L Alanine Aminotransferase (ALT/SGPT) 17 0-55 U/L Alkaline Phosphatase 89 40-136 U/L Total Protein 6.8 6.4-8.2 GM/DL Albumin 4.3 3.2-4.5 GM/DL My Orders Orders - SERG ARIAS APRN Cbc No Diff (05/27/19 14:43) Urinalysis (05/27/19 14:43) Comprehensive Metabolic Panel (05/27/19 14:43) Hyoscyamine Sl Tablet (Levsin Sl Tablet) (05/27/19 14:45) Lactated Ringers (Lr 1000 Ml Iv Solution (05/27/19 14:45) Medications Given in ED Current Medications Medications Dose Ordered Sig/Syl Route Start Time Stop Time Status Last Admin Dose Admin Hyoscyamine Sulfate 0.25 mg ONCE ONCE PO 05/27/19 14:45 05/27/19 14:47 DC 05/27/19 15:12 0.25 MG Vital Signs/I&O 05/27/19 14:19 Temp 36.9 Pulse 80 Resp 18 B/P (MAP) 111/62 (78) Blood Pressure Mean: 78 POS Departure Impression Primary Impression: Diarrhea Qualified Codes: K59.1 - Functional diarrhea Additional Impression: Dehydration Disposition: 01 HOME, SELF-CARE Condition: Stable Departure-Patient Inst. Decision time for Depature: 16:36 Referrals: RAJWINDER CARVAJAL MD (PCP/Family) Primary Care Physician Patient Instructions: Diarrhea and Traveler's Diarrhea, Adult (DC) Add. Discharge Instructions: 1. Drink plenty of fluids such as Pedialyte or Gatorade to stay hydrated 2. Continue kyra-zxn-anrpulk Imodium to help with the diarrhea. Return to ER for any concerns. All discharge instructions reviewed with patient and/or family. Voiced understanding. SERG ARIAS APRN May 27, 2019 16:14 POS
[2019-05-27 17:01] VITALS: BP 132/76
--- OUTSIDE RECORDS SUMMARY | 2019-06-21 23:14 | XMS REPORT | Clinical Summary ---
Author Author [facility] Organization [facility] Address Unknown Phone Unavailable Care Team Providers Care Outside Cutter Name Role Phone Maciej Sanz MD Unavailable Source Comments Some departments are not documenting in the electronic medical record. If you d o not see the information that you expected, contact Release of Information in [facility] [place] Information Management department at [phone] for further assistan ce in locating additional records.[facility] Allergies Comments Active Allergy Reactions Severity Noted Date Codeine CHEST 03/03/2012 TIGHTNESS Escitalopram HIVES 03/03/2012 Atorvastatin JOINT PAIN 03/03/2012 Niaspan Starter Pack RASH 03/03/2012 Tramadol NAUSEA AND 03/03/2012 VOMITING Medications End Date Status Medication Sig Dispensed Refills Start Date Active diltiazem SA (+) (TAZTIA Take 240 mg 0 XT) 240 mg capsule by mouth after meals and at bedtime as needed. Active ranitidine(+) (ZANTAC) Take 300 mg 0 300 mg tablet by mouth daily. Active lisinopril (PRINIVIL; Take 20 mg by 0 ZESTRIL) 20 mg tablet mouth daily. Active metoprolol XL (TOPROL XL) Take 25 mg by 0 25 mg tablet mouth daily. Active prasugrel (EFFIENT) 10 mg Take 10 mg by 0 Tab tablet mouth daily. Active aspirin EC 81 mg tablet Take 81 mg by 0 mouth daily. Active ALPRAZolam (XANAX) 0.5 mg Take 0.5 mg 0 tablet by mouth at bedtime as needed. Active HYDROcodone-acetaminophen Take 1 Tab by 0 (+) (LORTAB) 7.5-500 mg mouth every 4 tablet hours as needed. Active acetaminophen (TYLENOL) Take 500 mg 0 500 mg tablet by mouth every 6 hours as needed. Active simvastatin (ZOCOR) 20 mg Take 20 mg by 0 tablet mouth at bedtime daily. Active losartan/hydrochlorothiaz Take 100 mg 0 patricia (HYZAAR) 100/12.5 mg by mouth tablet 100 mg daily. Active amLODIPine (NORVASC) 10 Take 10 mg by 0 mg tablet mouth daily. Active bisoprolol/hydrochlorothi Take 0.25 mg 0 azide (ZIAC) 5/6.25 mg by mouth tablet 0.25 mg daily. Active Problems Problem Noted Date Difficulty voiding 03/03/2012 Last Assessment & Plan: - Pt empties well, PVR 0 in clinic toda y. - Will plan for VUDS and Cystoscopy to evaluate voiding dysfunction Renal artery stenosis 03/03/2012 Social History Date Tobacco Use Types Packs/Day Years Used Never Assessed Sex Assigned at Date Recorded Not on file Industry Job Start Date Occupation Not on file Not on file Not on file Travel End Travel History Travel Start No recent travel history available. Last Filed Vital Signs Reading Time Taken Comments Vital Sign 152/80 03/03/2012 10:35 AM CDT Blood Pressure 86 03/03/2012 10:35 AM CDT Pulse - - Temperature - - Respiratory Rate - - Oxygen Saturation - - Inhaled Oxygen Concentration 60.3 kg (133 lb) 03/03/2012 10:35 AM CDT Weight 157.5 cm (5' 2") 03/03/2012 10:35 AM CDT Height 24.33 03/03/2012 10:35 AM CDT Body Mass Index Plan of Treatment Health Maintenance Due Date Last Done Comments DTAP/TDAP VACCINES (1 - 1955 Tdap) PHYSICAL (COMPREHENSIVE) 1962 EXAM COLORECTAL CANCER 1994 SCREENING SHINGLES RECOMBINANT 1994 VACCINE (1 of 2) OSTEOPOROSIS 2009 SCREENING/MONITORING PNEUMONIA (PCV13/PPSV23) 2009 VACCINES (1 of 2 - PCV13) INFLUENZA VACCINE 01/26/2019 Results Not on filefrom Last 3 Months
--- OUTSIDE RECORDS SUMMARY | 2019-06-21 23:15 | XMS REPORT | Continuity of Care Document ---
Author Organization Unknown Address Unknown Phone Unavailable Allergies Active Description Code Type Severity Reaction Onset Reported/Identified Relationship to Patient Clinical Status Yes atorvastatin calcium atorvastatin calc ium Drug Allergy Severe muscle aches 2013 Yes codeine codeine Drug Allergy Severe shortness of breath 01/03/2014 Yes escitalopram oxalate escitalopram oxal ate Drug Allergy Severe hives 01/03/2014 Yes hydrocodone bit hydrocodone bit Drug Allergy Severe n/v 01/03/2014 Yes niacin niacin Drug Allergy Severe rash 01/03/2014 Yes simvastatin simvastatin Drug Allergy Severe pain in right side 01/04/20 14 Yes tramadol tramadol Drug Allergy Moderate nausea/vomiting 01/03/2014 Yes clonidine clonidine Drug Allergy Moderate PAIN 09/03/2015 Yes nebivolol nebivolol Drug Allergy Moderate PAIN 09/03/2015 Yes acetaminophen acetaminophen Drug Allergy Moderate ITCHING 03/09/2016 Yes oxycodone oxycodone Drug Allergy Moderate ITCHING 03/09/2016 Yes atorvastatin calcium [id number] Drug Allergy Unknown N/A 07/27/2016 Yes codeine [id number] Drug Allergy Unknown N/A 07/27/2016 Yes escitalopram oxalate [id number] Drug Allergy Unknown N/A 07/27/2016 Yes hydrocodone [id number] Drug Aller gy Unknown N/A 07/27/2016 Yes niacin [id number] Drug Allergy Unknown N/A 07/27/2016 Yes simvastatin [id number] Drug Aller gy Unknown N/A 07/27/2016 Yes tramadol [id number] Drug Allergy Unknown N/A 07/27/2016 Yes acetaminophen [id number] Enzo g Allergy Unknown N/A 09/01/2017 Yes cefdinir [id number] Drug Allergy Unknown N/A 09/01/2017 Yes doxycycline [id number] Drug Aller gy Unknown N/A 09/01/2017 Yes oxycodone [id number] Drug Allergy Unknown N/A 09/01/2017 Medications There is no data. 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 08/29/2012 Ot 401.9 HYPE RTENSION NOS 08/29/2012 Ot 414.00 COR ON ATHEROSCLER NOS TYPE VESSEL, NATIV 08/29/2012 Ot 440.1 BRIGHT L ARTERY ATHEROSCLER 08/29/2012 Ot 496 CHR AI RWAY OBSTRUCT NEC 08/29/2012 Ot V58.69 OTH MED,LT,CURRENT USE 09/20/2012 Ot 723.0 CERV ICAL SPINAL STENOSIS 09/20/2012 Ot 723.4 BRAC HIAL NEURITIS NOS 10/01/2012 Ot 250.00 KIESHA B FARRUKH WO COMPL, TYPE II OR UNSPEC TY 10/01/2012 Ot 401.9 HYPE RTENSION NOS 10/01/2012 Ot 496 CHR AI RWAY OBSTRUCT NEC 10/01/2012 Ot 998.59 OTH POSTOPER INFECTION 10/01/2012 Ot E879.8 ABN REACT- PROCEDURE NEC 10/01/2012 Ot V13.01 PER SHARRON HISTORY OF URINARY CALCULI 10/01/2012 Ot V45.4 ARTH RODESIS STATUS 01/15/2014 ERMA GÓMEZ MD Ot 238.79 OTHER LYMPHATIC AND HEMATOPOIETIC TISSUE 01/15/2014 ERMA GÓMEZ MD Ot 250.00 DIAB FARRUKH WO COMPL, TYPE II OR UNSPEC TY 01/15/2014 ERMA GÓMEZ MD Ot 272.4 HYPERLIPIDEMIA NEC/NOS 01/15/2014 ERMA GÓMEZ MD Ot 401.9 HYPERTENSION NOS 01/15/2014 ERMA GÓMEZ MD Ot 414.00 CORON ATHEROSCLER NOS TYPE VESSEL, NATIV 01/15/2014 ERMA GÓMEZ MD Ot 716.90 ARTHROPATHY NOS-UNSPEC 01/15/2014 ERMA GÓMEZ MD Ot 729.1 MYALGIA AND MYOSITIS NOS 01/15/2014 ERMA GÓMEZ MD Ot V15.82 HISTORY OF TOBACCO USE 01/15/2014 ERMA GÓMEZ MD Ot V58.63 LONG-TERM(CURRENT)USE OF ANTIPLATELET/AN 01/15/2014 ERMA GÓMEZ MD Ot V58.66 LONG-TERM (CURRENT) USE OF ASPIRIN 01/15/2014 DALIA BOLANOS, ERMA Tinoco Ot V58.69 OTH MED,LT,CURRENT USE 05/21/2014 DALIA BOLANOS, ERMA Tinoco Ot 238.71 05/21/2014 DALIA BOLANOS, ERMA Tinoco Ot 288.60 05/29/2014 DALIA BOLANOS, ERMA Tinoco Ot 238.71 05/29/2014 DALIA BOLANOS, ERMA [place] Ot 288.60 05/30/2014 DALIA BOLANOS, ERMA [place] Ot 238.71 05/30/2014 DALIA BOLANOS, ERMA [place] Ot 288.60 07/26/2014 DALIA BOLANOS, ERMA [place] Ot 238.71 07/26/2014 DALIA BOLANOS, ERMA K Ot 288.60 08/06/2014 DALIA BOLANOS, ERMA Tinoco Ot 238.71 08/06/2014 DALIA BOLANOS, ERMA [place] Ot 288.60 08/27/2014 DALIA BOLANOS, ERMA Tinoco Ot 238.71 ESSENTIAL THROMBOCYTHEMIA 08/27/2014 DALIA BOLANOS, ERMA Tinoco Ot 288.60 LEUKOCYTOSIS, UNSPECIFIED 11/21/2014 DALIA BOLANOS, ERMA Tinoco Ot 238.71 11/21/2014 DALIA BOLANOS, ERMA Tinoco Ot 288.60 11/22/2014 FANG BOLANOS, RONIT P Ot 784 .1 11/22/2014 FANG BOLANOS, RONIT P Ot V45 .4 11/22/2014 FANG BOLAONS, RONIT P Ot 784 .1 11/22/2014 FANG BOLANOS, RONIT P Ot V45 .4 11/22/2014 FANG BOLANOS, RONIT P Ot 784 .1 11/22/2014 FANG BOLANOS, RONIT P Ot V45 .4 11/27/2014 DALIA BOLANOS, ERMA Alejandrina Ot 238.71 11/27/2014 DALIA BOLANOS, ERMA Tinoco Ot 288.60 11/28/2014 DALIA BOLANOS, ERMA K Ot 238.71 11/28/2014 DALIA BOLANOS, ERMA K Ot 288.60 12/31/2014 DALIA BOLANOS, ERMA K Ot 238.71 12/31/2014 DALIA BOLANOS, ERMA K Ot 288.60 12/31/2014 DALIA BOLANOS, ERMA K Ot 238.71 12/31/2014 DALIA BOLANOS, ERMA K Ot 288.60 01/04/2015 FANG BOLANOS, RONIT P Ot 784 .1 01/04/2015 FANG BOLANOS, RONIT P Ot V45 .4 01/16/2015 FANG BOLANOS, RONIT P Ot 784 .1 01/16/2015 FANG BOLANOS, RONIT P Ot V45 .4 01/31/2015 DALIA BOLANOS, ERMA K Ot 238.71 01/31/2015 ERMA GÓMEZ MD Ot 288.60 01/31/2015 ERMA GÓMEZ MD Ot V76.12 02/20/2015 ERMA GÓMEZ MD, Ot 238.71 02/20/2015 ERMA GÓMEZ MD Ot 288.60 02/25/2015 ERMA GÓMEZ MD Ot 238.71 ESSENTIAL THROMBOCYTHEMIA 02/25/2015 ERMA GÓMEZ MD Ot 288.60 LEUKOCYTOSIS, UNSPECIFIED 02/26/2015 ROBYN MEZA MD Ot 717 .2 02/26/2015 ROBYN MEZA MD Ot 717.82 03/18/2015 ROBYN MEZA MD Ot 717 .2 03/18/2015 ROBYN MEZA MD Ot 717.82 05/29/2015 ERMA GÓMEZ MD Ot 238.71 05/29/2015 ERMA GÓMEZ MD Ot 288.60 08/08/2015 ERMA GÓMEZ MD Ot D47.3 08/08/2015 ERMA GÓMEZ MD Ot D72.829 09/02/2015 ERMA GÓMEZ MD Ot D47.3 ESSENTIAL (HEMORRHAGIC) THROMBOCYTHEMIA 09/02/2015 ERMA GÓMEZ MD Ot D72.829 ELEVATED WHITE BLOOD CELL COUNT, UNSPECI 10/28/2015 ERMA GÓMEZ MD Ot D47.3 ESSENTIAL (HEMORRHAGIC) THROMBOCYTHEMIA 10/28/2015 ERMA GÓMEZ MD Ot D72.829 ELEVATED WHITE BLOOD CELL COUNT, UNSPECI 11/07/2015 ERMA GÓMEZ MD Ot D47.3 ESSENTIAL (HEMORRHAGIC) THROMBOCYTHEMIA 11/07/2015 ERMA GÓMEZ MD Ot D72.829 ELEVATED WHITE BLOOD CELL COUNT, UNSPECI 01/01/2016 ERMA GÓMEZ MD Ot D47.1 CHRONIC MYELOPROLIFERATIVE DISEASE 01/01/2016 ERMA GÓMEZ MD Ot E11.9 TYPE 2 DIABETES MELLITUS WITHOUT COMPLIC 01/01/2016 ERMA GÓMEZ MD Ot E78.5 HYPERLIPIDEMIA, UNSPECIFIED 01/01/2016 ERMA GÓMEZ MD Ot I10 ESSENTIAL (PRIMARY) HYPERTENSION 01/01/2016 ERMA GÓMEZ MD Ot I25.10 ATH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 01/01/2016 ERMA GÓMEZ MD Ot M79.7 FIBROMYALGIA 01/01/2016 ERMA GÓMEZ MD Ot Z48.812 ENCNTR FOR SURGICAL AFTCR FOLLOWING SURG 01/01/2016 ERMA GÓMEZ MD Ot Z87.891 PERSONAL HISTORY OF NICOTINE DEPENDENCE 01/02/2016 ERMA GÓMEZ MD Ot D47.1 CHRONIC MYELOPROLIFERATIVE DISEASE 01/02/2016 ERMA GÓMEZ MD Ot E11.9 TYPE 2 DIABETES MELLITUS WITHOUT COMPLIC 01/02/2016 ERMA GÓMEZ MD Ot E78.5 HYPERLIPIDEMIA, UNSPECIFIED 01/02/2016 ERMA GÓMEZ MD Ot I10 ESSENTIAL (PRIMARY) HYPERTENSION 01/02/2016 ERMA GÓMEZ MD Ot I25.10 ATH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 01/02/2016 ERMA GÓMEZ MD Ot M79.7 FIBROMYALGIA 01/02/2016 ERMA GÓMEZ MD Ot Z48.812 ENCNTR FOR SURGICAL AFTCR FOLLOWING SURG 01/02/2016 ERMA GÓMEZ MD Ot Z87.891 PERSONAL HISTORY OF NICOTINE DEPENDENCE 02/03/2016 ERMA GÓMEZ MD Ot D47.1 CHRONIC MYELOPROLIFERATIVE DISEASE 02/03/2016 ERMA GÓMEZ MD Ot E11.9 TYPE 2 DIABETES MELLITUS WITHOUT COMPLIC 02/03/2016 ERMA GÓMEZ MD Ot E78.5 HYPERLIPIDEMIA, UNSPECIFIED 02/03/2016 ERMA GÓMEZ MD Ot I10 ESSENTIAL (PRIMARY) HYPERTENSION 02/03/2016 ERMA GÓMEZ MD Ot I25.10 ATH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 02/03/2016 ERMA GÓMEZ MD Ot M79.7 FIBROMYALGIA 02/03/2016 ERMA GÓMEZ MD Ot Z48.812 ENCNTR FOR SURGICAL AFTCR FOLLOWING SURG 02/03/2016 ERMA GÓMEZ MD Ot Z87.891 PERSONAL HISTORY OF NICOTINE DEPENDENCE 02/09/2016 ERMA GÓMEZ MD Ot D47.1 CHRONIC MYELOPROLIFERATIVE DISEASE 02/09/2016 ERMA GÓMEZ MD Ot E11.9 TYPE 2 DIABETES MELLITUS WITHOUT COMPLIC 02/09/2016 ERMA GÓMEZ MD Ot E78.5 HYPERLIPIDEMIA, UNSPECIFIED 02/09/2016 ERMA GÓMEZ MD Ot I10 ESSENTIAL (PRIMARY) HYPERTENSION 02/09/2016 ERMA GÓMEZ MD Ot I25.10 ATH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 02/09/2016 ERMA GÓMEZ MD Ot M79.7 FIBROMYALGIA 02/09/2016 ERMA GÓMEZ MD Ot Z48.812 ENCNTR FOR SURGICAL AFTCR FOLLOWING SURG 02/09/2016 ERMA GÓMEZ MD Ot Z87.891 PERSONAL HISTORY OF NICOTINE DEPENDENCE 05/12/2016 REMA GÓMEZ MD Ot D47.1 CHRONIC MYELOPROLIFERATIVE DISEASE 05/12/2016 ERMA GÓMEZ MD Ot E11.9 TYPE 2 DIABETES MELLITUS WITHOUT COMPLIC 05/12/2016 ERMA GMÓEZ MD Ot E78.5 HYPERLIPIDEMIA, UNSPECIFIED 05/12/2016 ERMA GÓMEZ MD Ot I10 ESSENTIAL (PRIMARY) HYPERTENSION 05/12/2016 ERMA GÓMEZ MD Ot I25.10 ATH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 05/12/2016 ERMA GÓMEZ MD Ot M79.7 FIBROMYALGIA 05/12/2016 ERMA GÓMEZ MD Ot Z48.812 ENCNTR FOR SURGICAL AFTCR FOLLOWING SURG 05/12/2016 ERMA GÓMEZ MD Ot Z87.891 PERSONAL HISTORY OF NICOTINE DEPENDENCE 05/20/2016 ERMA GÓMEZ MD Ot Z12.39 ENCOUNTER FOR OTH SCREENING FOR MALIGNAN 05/25/2016 ERMA GÓMEZ MD Ot Z12.31 ENCNTR SCREEN MAMMOGRAM FOR MALIGNANT NE 06/10/2016 ERMA GÓMEZ MD Ot Z12.31 ENCNTR SCREEN MAMMOGRAM FOR MALIGNANT NE 06/19/2016 ERMA GÓMEZ MD Ot D47.1 CHRONIC MYELOPROLIFERATIVE DISEASE 06/19/2016 ERMA GÓMEZ MD Ot E11.9 TYPE 2 DIABETES MELLITUS WITHOUT COMPLIC 06/19/2016 ERMA GÓMEZ MD Ot E78.5 HYPERLIPIDEMIA, UNSPECIFIED 06/19/2016 ERMA GÓMEZ MD Ot I10 ESSENTIAL (PRIMARY) HYPERTENSION 06/19/2016 ERMA GÓMEZ MD Ot I25.10 ATH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 06/19/2016 ERMA GÓMEZ MD Ot M79.7 FIBROMYALGIA 06/19/2016 ERMA GÓMEZ MD Ot Z48.812 ENCNTR FOR SURGICAL AFTCR FOLLOWING SURG 06/19/2016 ERMA GÓMEZ MD Ot Z87.891 PERSONAL HISTORY OF NICOTINE DEPENDENCE 06/25/2016 ERMA GÓMEZ MD Ot D47.1 CHRONIC MYELOPROLIFERATIVE DISEASE 06/25/2016 ERMA GÓMEZ MD Ot E11.9 TYPE 2 DIABETES MELLITUS WITHOUT COMPLIC 06/25/2016 ERMA GÓMEZ MD Ot E78.5 HYPERLIPIDEMIA, UNSPECIFIED 06/25/2016 ERMA GÓMEZ MD Ot I10 ESSENTIAL (PRIMARY) HYPERTENSION 06/25/2016 ERMA GÓMEZ MD Ot I25.10 ATH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 06/25/2016 ERMA GÓMEZ MD Ot M79.7 FIBROMYALGIA 06/25/2016 ERMA GÓMEZ MD Ot Z48.812 ENCNTR FOR SURGICAL AFTCR FOLLOWING SURG 06/25/2016 ERMA GÓMEZ MD Ot Z87.891 PERSONAL HISTORY OF NICOTINE DEPENDENCE 07/24/2016 ANDREA MEDINA MD, Ot E11.9 TYPE 2 DIABETES MELLITUS WITHOUT COMPLIC 07/24/2016 ANDREA MEDINA MD, Ot J44.9 CHRONIC OBSTRUCTIVE PULMONARY DISEASE, U 07/24/2016 ANDREA MEDINA MD, Ot M25.552 PAIN IN LEFT HIP 07/24/2016 ANDREA MEDINA MD, Ot M54.32 SCIATICA, LEFT SIDE 07/24/2016 ANDREA MEDINA MD, Ot Z79.84 STOCK WORKER (CURRENT) USE OF ORAL HYPOGLYC 07/24/2016 ANDREA MEDINA MD, Ot Z79.899 OTHER PENITENTIARY (CURRENT) DRUG THERAPY 07/24/2016 ANDREA MEDINA MD, Ot Z96.0 PRESENCE OF UROGENITAL IMPLANTS 07/27/2016 ANDREA MEDINA MD, Ot E11.9 TYPE 2 DIABETES MELLITUS WITHOUT COMPLIC 07/27/2016 ANDREA MEDINA MD, Ot J44.9 CHRONIC OBSTRUCTIVE PULMONARY DISEASE, U 07/27/2016 ANDREA MEDINA MD, Ot M25.552 PAIN IN LEFT HIP 07/27/2016 ANDREA MEDINA MD, Ot M54.32 SCIATICA, LEFT SIDE 07/27/2016 ANDREA MEDINA MD, Ot Z79.84 STOCK WORKER (CURRENT) USE OF ORAL HYPOGLYC 07/27/2016 ANDREA MEDINA MD, Ot Z79.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 07/27/2016 ANDREA MEDINA MD, Ot Z96.0 PRESENCE OF UROGENITAL IMPLANTS 08/09/2016 ERMA GÓMEZ MD Ot D47.1 CHRONIC MYELOPROLIFERATIVE DISEASE 08/09/2016 ERMA GÓMEZ MD Ot E11.9 TYPE 2 DIABETES MELLITUS WITHOUT COMPLIC 08/09/2016 ERMA GÓMEZ MD Ot E78.5 HYPERLIPIDEMIA, UNSPECIFIED 08/09/2016 ERMA GÓMEZ MD Ot I10 ESSENTIAL (PRIMARY) HYPERTENSION 08/09/2016 ERMA GÓMEZ MD Ot I25.10 ATH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 08/09/2016 ERMA GÓMEZ MD Ot M79.7 FIBROMYALGIA 08/09/2016 ERMA GÓMEZ MD Ot Z48.812 ENCNTR FOR SURGICAL AFTCR FOLLOWING SURG 08/09/2016 ERMA GÓMEZ MD Ot Z87.891 PERSONAL HISTORY OF NICOTINE DEPENDENCE 10/08/2016 ERMA GÓMEZ MD Ot D47.1 CHRONIC MYELOPROLIFERATIVE DISEASE 10/08/2016 ERMA GÓMEZ MD Ot E11.9 TYPE 2 DIABETES MELLITUS WITHOUT COMPLIC 10/08/2016 ERMA GÓMEZ MD Ot E78.5 HYPERLIPIDEMIA, UNSPECIFIED 10/08/2016 ERMA GÓMEZ MD Ot I10 ESSENTIAL (PRIMARY) HYPERTENSION 10/08/2016 ERMA GÓMEZ MD Ot I25.10 ATH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 10/08/2016 ERMA GÓMEZ MD Ot M79.7 FIBROMYALGIA 10/08/2016 ERMA GÓMEZ MD Ot Z48.812 ENCNTR FOR SURGICAL AFTCR FOLLOWING SURG 10/08/2016 ERMA GÓMEZ MD Ot Z87.891 PERSONAL HISTORY OF NICOTINE DEPENDENCE 11/18/2016 ERMA GÓMEZ MD Ot D47.1 CHRONIC MYELOPROLIFERATIVE DISEASE 11/18/2016 ERMA GÓMEZ MD Ot E11.9 TYPE 2 DIABETES MELLITUS WITHOUT COMPLIC 11/18/2016 ERMA GÓMEZ MD Ot E78.5 HYPERLIPIDEMIA, UNSPECIFIED 11/18/2016 ERMA GÓMEZ MD Ot I10 ESSENTIAL (PRIMARY) HYPERTENSION 11/18/2016 ERMA GÓMEZ MD Ot I25.10 ATH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 11/18/2016 ERMA GÓMEZ MD Ot M79.7 FIBROMYALGIA 11/18/2016 ERMA GÓMEZ MD Ot Z48.812 ENCNTR FOR SURGICAL AFTCR FOLLOWING SURG 11/18/2016 ERMA GÓMEZ MD Ot Z87.891 PERSONAL HISTORY OF NICOTINE DEPENDENCE 11/24/2016 ERMA GÓMEZ MD Ot D47.1 CHRONIC MYELOPROLIFERATIVE DISEASE 11/24/2016 ERMA GÓMEZ MD Ot E11.9 TYPE 2 DIABETES MELLITUS WITHOUT COMPLIC 11/24/2016 ERMA GÓMEZ MD Ot E78.5 HYPERLIPIDEMIA, UNSPECIFIED 11/24/2016 ERMA GÓMEZ MD Ot I10 ESSENTIAL (PRIMARY) HYPERTENSION 11/24/2016 ERMA GÓMEZ MD Ot I25.10 ATH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 11/24/2016 ERMA GÓMEZ MD Ot M79.7 FIBROMYALGIA 11/24/2016 ERMA GÓMEZ MD Ot Z48.812 ENCNTR FOR SURGICAL AFTCR FOLLOWING SURG 11/24/2016 ERMA GÓMEZ MD Ot Z87.891 PERSONAL HISTORY OF NICOTINE DEPENDENCE 01/05/2017 ERMA GÓMEZ MD Ot D47.1 CHRONIC MYELOPROLIFERATIVE DISEASE 01/05/2017 ERMA GÓMEZ MD Ot E11.9 TYPE 2 DIABETES MELLITUS WITHOUT COMPLIC 01/05/2017 ERMA GÓMEZ MD Ot E78.5 HYPERLIPIDEMIA, UNSPECIFIED 01/05/2017 ERMA GÓMEZ MD Ot I10 ESSENTIAL (PRIMARY) HYPERTENSION 01/05/2017 ERMA GÓMEZ MD Ot I25.10 ATH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 01/05/2017 ERMA GÓMEZ MD Ot M79.7 FIBROMYALGIA 01/05/2017 ERMA GÓMEZ MD Ot Z48.812 ENCNTR FOR SURGICAL AFTCR FOLLOWING SURG 01/05/2017 ERMA GÓMEZ MD Ot Z87.891 PERSONAL HISTORY OF NICOTINE DEPENDENCE 01/07/2017 ERMA GÓMEZ MD Ot D47.1 CHRONIC MYELOPROLIFERATIVE DISEASE 01/07/2017 ERMA GÓMEZ MD Ot E11.9 TYPE 2 DIABETES MELLITUS WITHOUT COMPLIC 01/07/2017 ERMA GÓMEZ MD Ot E78.5 HYPERLIPIDEMIA, UNSPECIFIED 01/07/2017 ERMA GÓMEZ MD Ot I10 ESSENTIAL (PRIMARY) HYPERTENSION 01/07/2017 ERMA GÓMEZ MD Ot I25.10 ATH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 01/07/2017 ERMA GÓMEZ MD Ot M79.7 FIBROMYALGIA 01/07/2017 ERMA GÓMEZ MD Ot Z48.812 ENCNTR FOR SURGICAL AFTCR FOLLOWING SURG 01/07/2017 ERMA GÓMEZ MD Ot Z87.891 PERSONAL HISTORY OF NICOTINE DEPENDENCE 02/15/2017 ERMA GÓMEZ MD Ot D47.1 CHRONIC MYELOPROLIFERATIVE DISEASE 02/15/2017 ERMA GÓMEZ MD Ot E11.9 TYPE 2 DIABETES MELLITUS WITHOUT COMPLIC 02/15/2017 ERMA GÓMEZ MD Ot E78.5 HYPERLIPIDEMIA, UNSPECIFIED 02/15/2017 ERMA GÓMEZ MD Ot I10 ESSENTIAL (PRIMARY) HYPERTENSION 02/15/2017 ERMA GÓMEZ MD Ot I25.10 ATH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 02/15/2017 ERMA GÓMEZ MD Ot M79.7 FIBROMYALGIA 02/15/2017 ERMA GÓMEZ MD Ot Z48.812 ENCNTR FOR SURGICAL AFTCR FOLLOWING SURG 02/15/2017 ERMA GÓMEZ MD Ot Z87.891 PERSONAL HISTORY OF NICOTINE DEPENDENCE 02/15/2017 ANNA WEIR MD Ot D47. 1 CHRONIC MYELOPROLIFERATIVE DISEASE 02/15/2017 ANNA WEIR MD Ot E11. 9 TYPE 2 DIABETES MELLITUS WITHOUT COMPLIC 02/15/2017 ANNA WEIR MD Ot E78. 5 HYPERLIPIDEMIA, UNSPECIFIED 02/15/2017 ANNA WEIR MD Ot I10 ESSENTIAL (PRIMARY) HYPERTENSION 02/15/2017 ANNA WEIR MD Ot I25. 10 ATH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 02/15/2017 ANNA WEIR MD Ot M79. 7 FIBROMYALGIA 02/15/2017 ANNA WEIR MD Ot Z48.812 ENCNTR FOR SURGICAL AFTCR FOLLOWING SURG 02/15/2017 ANNA WEIR MD Ot Z87.891 PERSONAL HISTORY OF NICOTINE DEPENDENCE 02/16/2017 ANNA WEIR MD Ot D47. 1 CHRONIC MYELOPROLIFERATIVE DISEASE 02/16/2017 ANNA WEIR MD Ot E11. 9 TYPE 2 DIABETES MELLITUS WITHOUT COMPLIC 02/16/2017 ANNA WEIR MD Ot E78. 5 HYPERLIPIDEMIA, UNSPECIFIED 02/16/2017 ANNA WEIR MD Ot I10 ESSENTIAL (PRIMARY) HYPERTENSION 02/16/2017 ANNA WEIR MD Ot I25. 10 ATH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 02/16/2017 ANNA WEIR MD Ot M79. 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 1 CHRONIC MYELOPROLIFERATIVE DISEASE 03/19/2017 ANNA WEIR MD Ot E11. 9 TYPE 2 DIABETES MELLITUS WITHOUT COMPLIC 03/19/2017 ANNA WEIR MD Ot E78. 5 HYPERLIPIDEMIA, UNSPECIFIED 03/19/2017 ANNA WEIR MD Ot I10 ESSENTIAL (PRIMARY) HYPERTENSION 03/19/2017 ANNA WEIR MD Ot I25. 10 ATH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 03/19/2017 ANNA WEIR MD Ot M79. 7 FIBROMYALGIA 03/19/2017 ANNA WEIR MD Ot Z48.812 ENCNTR FOR SURGICAL AFTCR FOLLOWING SURG 03/19/2017 ANNA WEIR MD Ot Z87.891 PERSONAL HISTORY OF NICOTINE DEPENDENCE 03/24/2017 ANNA WEIR MD Ot D47. 1 CHRONIC MYELOPROLIFERATIVE DISEASE 03/24/2017 ANNA WEIR MD Ot E11. 9 TYPE 2 DIABETES MELLITUS WITHOUT COMPLIC 03/24/2017 ANNA WEIR MD Ot E78. 5 HYPERLIPIDEMIA, UNSPECIFIED 03/24/2017 ANNA WEIR MD Ot I10 ESSENTIAL (PRIMARY) HYPERTENSION 03/24/2017 ANNA WEIR MD Ot I25. 10 ATH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 03/24/2017 ANNA WEIR MD Ot M79. 7 FIBROMYALGIA 03/24/2017 ANNA WEIR MD Ot Z48.812 ENCNTR FOR SURGICAL AFTCR FOLLOWING SURG 03/24/2017 ANNA WEIR MD Ot Z87.891 PERSONAL HISTORY OF NICOTINE DEPENDENCE 03/27/2017 ANNA WEIR MD Ot D47. 1 CHRONIC MYELOPROLIFERATIVE DISEASE 03/27/2017 ANNA WEIR MD Ot E11. 9 TYPE 2 DIABETES MELLITUS WITHOUT COMPLIC 03/27/2017 ANNA WEIR MD Ot E78. 5 HYPERLIPIDEMIA, UNSPECIFIED 03/27/2017 ANNA WEIR MD Ot I10 ESSENTIAL (PRIMARY) HYPERTENSION 03/27/2017 ANNA WEIR MD Ot I25. 10 ATH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 03/27/2017 ANNA WEIR MD Ot M79. 7 FIBROMYALGIA 03/27/2017 ANNA WEIR MD Ot Z48.812 ENCNTR FOR SURGICAL AFTCR FOLLOWING SURG 03/27/2017 ANNA WEIR MD Ot Z87.891 PERSONAL HISTORY OF NICOTINE DEPENDENCE 04/02/2017 CHARMAINE SKAGGS MD Ot M54.2 CERVICALGIA 2017 CHARMAINE SKAGGS MD Ot M54.2 CERVICALGIA 05/11/2017 VIRI GARCIA APRN Ot G47.30 SLEEP APNEA, UNSPECIFIED 05/11/2017 VIRI GARCIA APRN Ot J30.2 OTHER SEASONAL ALLERGIC RHINITIS 05/11/2017 VIRI GARCIA APRN Ot J44.9 CHRONIC OBSTRUCTIVE PULMONARY DISEASE, U 05/11/2017 VIRI GARCIA APRN Ot R06.00 DYSPNEA, UNSPECIFIED 05/21/2017 ANNA WEIR MD Ot D47. 1 CHRONIC MYELOPROLIFERATIVE DISEASE 05/21/2017 ANNA WEIR MD Ot E11. 9 TYPE 2 DIABETES MELLITUS WITHOUT COMPLIC 05/21/2017 ANNA WEIR MD Ot E78. 5 HYPERLIPIDEMIA, UNSPECIFIED 05/21/2017 ANNA WEIR MD Ot I10 ESSENTIAL (PRIMARY) HYPERTENSION 05/21/2017 ANNA WEIR MD Ot I25. 10 ATH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 05/21/2017 ANNA WEIR MD Ot M79. 7 FIBROMYALGIA 05/21/2017 ANNA WEIR MD Ot Z48.812 ENCNTR FOR SURGICAL AFTCR FOLLOWING SURG 05/21/2017 ANNA WEIR MD Ot Z87.891 PERSONAL HISTORY OF NICOTINE DEPENDENCE 05/25/2017 ANNA WEIR MD Ot D47. 1 CHRONIC MYELOPROLIFERATIVE DISEASE 05/25/2017 ANNA WEIR MD Ot E11. 9 TYPE 2 DIABETES MELLITUS WITHOUT COMPLIC 05/25/2017 ANNA WEIR MD Ot E78. 5 HYPERLIPIDEMIA, UNSPECIFIED 05/25/2017 ANNA WEIR MD Ot I10 ESSENTIAL (PRIMARY) HYPERTENSION 05/25/2017 ANNA WEIR MD Ot I25. 10 ATH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 05/25/2017 ANNA WEIR MD Ot M79. 7 FIBROMYALGIA 05/25/2017 ANNA WEIR MD Ot Z48.812 ENCNTR FOR SURGICAL AFTCR FOLLOWING SURG 05/25/2017 ANNA WEIR MD, Ot Z87.891 PERSONAL HISTORY OF NICOTINE DEPENDENCE 06/22/2017 JOSE, VIRI E MILITARY EXCHANGE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 Ot G47.30 SLEEP APNEA, UNSPECIFIED 06/22/2017 JOSE, VIRI E MILITARY EXCHANGE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 Ot J30.2 OTHER SEASONAL ALLERGIC RHINITIS 06/22/2017 JOSE, VIRI E MILITARY EXCHANGE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 Ot J44.9 CHRONIC OBSTRUCTIVE PULMONARY DISEASE, U 06/22/2017 JOSE, VIRI E MILITARY EXCHANGE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 Ot R06.00 DYSPNEA, UNSPECIFIED 06/25/2017 JOSE, VIRI E MILITARY EXCHANGE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 Ot G47.30 SLEEP APNEA, UNSPECIFIED 06/25/2017 JOSE, VIRI E MILITARY EXCHANGE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 Ot J30.2 OTHER SEASONAL ALLERGIC RHINITIS 06/25/2017 JOSE, VIRI E MILITARY EXCHANGE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 Ot J44.9 CHRONIC OBSTRUCTIVE PULMONARY DISEASE, U 06/25/2017 JOSE, VIRI E MILITARY EXCHANGE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 Ot R06.00 DYSPNEA, UNSPECIFIED 06/29/2017 ANNA WEIR MD Ot D47. 1 CHRONIC MYELOPROLIFERATIVE DISEASE 06/29/2017 ANNA WEIR MD Ot E11. 9 TYPE 2 DIABETES MELLITUS WITHOUT COMPLIC 06/29/2017 ANNA WEIR MD Ot E78. 5 HYPERLIPIDEMIA, UNSPECIFIED 06/29/2017 ANNA WEIR MD Ot I10 ESSENTIAL (PRIMARY) HYPERTENSION 06/29/2017 ANNA WEIR MD Ot I25. 10 ATH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 06/29/2017 ANNA WEIR MD Ot M79. 7 FIBROMYALGIA 06/29/2017 ANNA WEIR MD Ot Z48.812 ENCNTR FOR SURGICAL AFTCR FOLLOWING SURG 06/29/2017 ANNA WEIR MD, Ot Z87.891 PERSONAL HISTORY OF NICOTINE DEPENDENCE 07/05/2017 VANDANA RAMOS Ot D47.1 CHRONIC MYELOPROLIFERATIVE DISEASE 07/05/2017 VANDANA RAMOS Ot E11.9 TYPE 2 DIABETES MELLITUS WITHOUT COMPLIC 07/05/2017 VANDANA RAMOS Ot E78.5 HYPERLIPIDEMIA, UNSPECIFIED 07/05/2017 VANDANA RAMOS Ot I10 ESSENTIAL (PRIMARY) HYPERTENSION 07/05/2017 VANDANA RAMOS Ot I25.10 ATH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 07/05/2017 VANDANA RAMOS Ot M79.7 FIBROMYALGIA 07/05/2017 VANDANA RAMOS Ot Z48.812 ENCNTR FOR SURGICAL AFTCR FOLLOWING SURG 07/05/2017 VANDANA RAMOS Ot 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.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 07/05/2017 VANDANA RAMOS Ot Z87.891 PERSONAL HISTORY OF NICOTINE DEPENDENCE 07/09/2017 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 Ot N64.59 OTHER SIGNS AND SYMPTOMS IN BREAST 07/09/2017 Ot 723.4 BRAC HIAL NEURITIS NOS 07/09/2017 Ot 723.0 CERV ICAL SPINAL STENOSIS 07/09/2017 Ot V72.63 PRE -PROCEDURAL LABORATORY EXAMINATION 07/09/2017 Ot V72.81 [id number] CARDIOVASCULAR 07/09/2017 Ot V74.8 SCRE EN-BACTERIAL DIS NEC 07/09/2017 ERMA GÓMEZ MD Ot 238.79 OTHER LYMPHATIC AND HEMATOPOIETIC TISSUE 07/09/2017 DALIA BOLANOS, ERMA [place] Ot 250.00 DIAB FARRU[place] WO COMPL, TYPE II OR UNSPEC TY 07/09/2017 ERMA GÓMEZ MD Ot 272.4 HYPERLIPIDEMIA NEC/NOS 07/09/2017 ERMA GÓMEZ MD Ot 305.1 TOBACCO USE DISORDER 07/09/2017 ERMA GÓMEZ MD Ot 401.9 HYPERTENSION NOS 07/09/2017 ERMA GÓMEZ MD Ot 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 89 OTH (ABN) FINDINGS ON RADIOLOGICAL EXAMI 07/09/2017 ERMA GÓMEZ MD Ot 238.79 OTHER LYMPHATIC AND HEMATOPOIETIC TISSUE 07/09/2017 ERMA GÓMEZ MD Ot 250.00 DIAB [place] WO COMPL, TYPE II OR UNSPEC TY 07/09/2017 ERMA GÓMEZ MD Ot 272.4 HYPERLIPIDEMIA NEC/NOS 07/09/2017 ERMA GÓMEZ MD Ot 401.9 HYPERTENSION NOS 07/09/2017 ERMA GÓMEZ MD Ot 414.00 CORON ATHEROSCLER NOS TYPE VESSEL, NATIV 07/09/2017 ERMA GÓMEZ MD Ot 716.90 ARTHROPATHY NOS-UNSPEC 07/09/2017 ERMA GÓMEZ MD Ot 729.1 MYALGIA AND MYOSITIS NOS 07/09/2017 ERMA GÓMEZ MD Ot V15.82 HISTORY OF TOBACCO USE 07/09/2017 ERMA GÓMEZ MD Ot V58.63 LONG-TERM(CURRENT)USE OF ANTIPLATELET/AN 07/09/2017 ERMA GÓMEZ MD Ot V58.66 LONG-TERM (CURRENT) USE OF ASPIRIN 07/09/2017 ERMA GÓMEZ MD Ot V58.69 OTH MED,LT,CURRENT USE 07/09/2017 SUSY BOLANOS, TAE A Ot 592.0 CALCULUS OF KIDNEY 07/09/2017 ERMA GÓMEZ MD Ot 174.9 MALIGN NEOPL BREAST NOS 07/09/2017 RONIT HEADLEY MD Ot 784 .1 THROAT PAIN 07/09/2017 RONIT HEADLEY MD Ot V45 .4 ARTHRODESIS STATUS 07/09/2017 ERMA GÓMEZ MD Ot V76.12 OTH SCREEN MAMMO-MALIGN NEOPLASM OF RUI 07/09/2017 ROBYN MEZA MD Ot 717 .2 DERANG POST MED MENISCUS 07/09/2017 ROBYN MEZA MD Ot 717.82 OLD DISRUPT MED COLLAT 07/09/2017 ERMA GÓMEZ MD Ot Z12.31 ENCNTR SCREEN MAMMOGRAM FOR MALIGNANT NE 07/09/2017 CHARMAINE SKAGGS MD Ot M47.8 12 SPONDYLOSIS W/O MYELOPATHY OR RADICULOPA 07/09/2017 CHARMAINE SKAGGS MD Ot 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, HIGH 07/09/2017 CHARMAINE SKAGGS MD Ot Z98.1 ARTHRODESIS STATUS 07/09/2017 VIRI GARCIA MILITARY EXCHANGE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 Ot G47.30 SLEEP APNEA, UNSPECIFIED 07/09/2017 VIRI GARCIA MILITARY EXCHANGE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 Ot J30.2 OTHER SEASONAL ALLERGIC RHINITIS 07/09/2017 VIRI GARCIA MILITARY EXCHANGE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 Ot J44.9 CHRONIC OBSTRUCTIVE PULMONARY DISEASE, U 07/09/2017 VIRI GARCIA MILITARY EXCHANGE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 Ot R06.00 DYSPNEA, UNSPECIFIED 07/09/2017 SHARIFA BOLANOS, CHARMAINE Kebede Ot M54.2 CERVICALGIA 07/09/2017 VANDANA RAMOS N Ot D47.1 CHRONIC MYELOPROLIFERATIVE DISEASE 07/09/2017 RACHEL VANDANA N Ot E11.9 TYPE 2 DIABETES MELLITUS WITHOUT COMPLIC 07/09/2017 RACHELVANDANA GRAJEDA N Ot E78.5 HYPERLIPIDEMIA, UNSPECIFIED 07/09/2017 RACHEL EDAANNALISA N Ot I10 ESSENTIAL (PRIMARY) HYPERTENSION 07/09/2017 RACHELVANDANA N Ot I25.10 ATH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 07/09/2017 RACHELVANDANA N Ot M79.7 FIBROMYALGIA 07/09/2017 RACHEL VANDANA N Ot Z48.812 ENCNTR FOR SURGICAL AFTCR FOLLOWING SURG 07/09/2017 VANDANA RAMOS N Ot Z79.899 OTHER PENITENTIARY (CURRENT) DRUG THERAPY 07/09/2017 VANDANA RAMOS N Ot Z87.891 PERSONAL HISTORY OF NICOTINE DEPENDENCE 07/09/2017 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 Ot N64.59 OTHER SIGNS AND SYMPTOMS IN BREAST 07/12/2017 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 Ot N64.59 OTHER SIGNS AND SYMPTOMS IN BREAST 07/12/2017 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 Ot N64.59 OTHER SIGNS AND SYMPTOMS IN BREAST 07/15/2017 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 Ot N63.10 UNSPECIFIED LUMP IN THE RIGHT BREAST, UN 08/08/2017 VIRI GARCIA MILITARY EXCHANGE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 Ot G47.30 SLEEP APNEA, UNSPECIFIED 08/08/2017 VIRI GARCIA MILITARY EXCHANGE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 Ot J30.2 OTHER SEASONAL ALLERGIC RHINITIS 08/08/2017 VIRI GARCIA MILITARY EXCHANGE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 Ot J44.9 CHRONIC OBSTRUCTIVE PULMONARY DISEASE, U 08/08/2017 VIRI GARCIA MILITARY EXCHANGE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 Ot R06.00 DYSPNEA, UNSPECIFIED 08/09/2017 CLAUDIA MORAN Ot E11.9 TYPE 2 DIABETES MELLITUS WITHOUT COMPLIC 08/09/2017 CLAUDIA MORAN Ot E78.00 PURE HYPERCHOLESTEROLEMIA, UNSPECIFIED 08/09/2017 CLAUDIA MORAN Ot I 10 ESSENTIAL (PRIMARY) HYPERTENSION 08/09/2017 CLAUDIA MORAN Ot I25.10 ATH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 08/09/2017 CLAUDIA MORAN Ot J44.9 CHRONIC OBSTRUCTIVE PULMONARY DISEASE, U 08/09/2017 CLAUDIA MORAN Ot K21.9 GASTRO-ESOPHAGEAL REFLUX DISEASE WITHOUT 08/09/2017 CLAUDIA MORAN Ot M10.9 GOUT, UNSPECIFIED 08/09/2017 CLAUDIA MORAN Ot M79.671 PAIN IN RIGHT FOOT 08/09/2017 CLAUDIA MORAN Ot Z79.4 PENITENTIARY (CURRENT) USE OF INSULIN 08/09/2017 CLAUDIA MORAN Ot Z79.82 STOCK WORKER (CURRENT) USE OF ASPIRIN 08/09/2017 CLAUDIA MORAN Ot Z79.84 STOCK WORKER (CURRENT) USE OF ORAL HYPOGLYC 08/09/2017 CLAUDIA MORAN Ot Z87.891 PERSONAL HISTORY OF NICOTINE DEPENDENCE 08/09/2017 CLAUDIA MORAN Ot Z88.1 ALLERGY STATUS TO OTHER ANTIBIOTIC AGENT 08/09/2017 CLAUDIA MORAN Ot Z88.5 ALLERGY STATUS TO NARCOTIC AGENT STATUS 08/09/2017 CLAUDIA MORAN Ot Z88.8 ALLERGY STATUS TO OTH DRUG/MEDS/BIOL SUB 08/09/2017 CLAUDIA MORAN Ot Z90.710 ACQUIRED ABSENCE OF BOTH CERVIX AND UTER 08/09/2017 CLAUDIA MORAN Ot Z95.5 PRESENCE OF CORONARY ANGIOPLASTY IMPLANT 08/10/2017 VIRI GARCIA APRN Ot G47.30 SLEEP APNEA, UNSPECIFIED 08/10/2017 VIRI GARCIA APRN Ot J30.2 OTHER SEASONAL ALLERGIC RHINITIS 08/10/2017 VIRI GARCIA APRN Ot J44.9 CHRONIC OBSTRUCTIVE PULMONARY DISEASE, U 08/10/2017 VIRI GARCIA APRN Ot R06.00 DYSPNEA, UNSPECIFIED 08/10/2017 JOEL MORILLO Ot N63.10 UNSPECIFIED LUMP IN THE RIGHT BREAST, UN 08/11/2017 CLAUDIA MORAN Ot E11.9 TYPE 2 DIABETES MELLITUS WITHOUT COMPLIC 08/11/2017 CLAUDIA MORAN Ot E78.00 PURE HYPERCHOLESTEROLEMIA, UNSPECIFIED 08/11/2017 CLAUDIA MORAN Ot I 10 ESSENTIAL (PRIMARY) HYPERTENSION 08/11/2017 CLAUDIA MORAN Ot I25.10 ATH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 08/11/2017 CLAUDIA MORAN Ot J44.9 CHRONIC OBSTRUCTIVE PULMONARY DISEASE, U 08/11/2017 CLAUDIA MORAN Ot K21.9 GASTRO-ESOPHAGEAL REFLUX DISEASE WITHOUT 08/11/2017 CLAUDIA MORAN Ot M10.9 GOUT, UNSPECIFIED 08/11/2017 CLAUDIA MORAN Ot M79.671 PAIN IN RIGHT FOOT 08/11/2017 CLAUDIA MORAN Ot Z79.4 PENITENTIARY (CURRENT) USE OF INSULIN 08/11/2017 CLAUDIA MORAN Ot Z79.82 PENITENTIARY (CURRENT) USE OF ASPIRIN 08/11/2017 CLAUDIA MORAN Ot Z79.84 PENITENTIARY (CURRENT) USE OF ORAL HYPOGLYC 08/11/2017 CLAUDIA MORAN Ot Z87.891 PERSONAL HISTORY OF NICOTINE DEPENDENCE 08/11/2017 CLAUDIA MORAN Ot Z88.1 ALLERGY STATUS TO OTHER ANTIBIOTIC AGENT 08/11/2017 CLAUDIA MORAN Ot Z88.5 ALLERGY STATUS TO NARCOTIC AGENT STATUS 08/11/2017 CLAUDIA MORAN Ot Z88.8 ALLERGY STATUS TO OTH DRUG/MEDS/BIOL SUB 08/11/2017 CLAUDIA MORAN Ot Z90.710 ACQUIRED ABSENCE OF BOTH CERVIX AND UTER 08/11/2017 CLAUDIA MORAN Ot Z95.5 PRESENCE OF CORONARY ANGIOPLASTY IMPLANT 08/13/2017 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 Ot N63.10 UNSPECIFIED LUMP IN THE RIGHT BREAST, UN 08/14/2017 VIRI GARCIA APRN Ot G47.30 SLEEP APNEA, UNSPECIFIED 08/14/2017 VIRI GARCIA APRN Ot J30.2 OTHER SEASONAL ALLERGIC RHINITIS 08/14/2017 VIRI GARCIA APRN Ot J44.9 CHRONIC OBSTRUCTIVE PULMONARY DISEASE, U 08/14/2017 VIRI GARCIA APRN Ot R06.00 DYSPNEA, UNSPECIFIED 08/24/2017 RACHEL, BOBAN N Ot D47.1 CHRONIC MYELOPROLIFERATIVE DISEASE 08/24/2017 RACHEL, BOBAN N Ot E11.9 TYPE 2 DIABETES MELLITUS WITHOUT COMPLIC 08/24/2017 RACHEL BOBAN N Ot E78.5 HYPERLIPIDEMIA, UNSPECIFIED 08/24/2017 RACHEL, BOBAN N Ot I10 ESSENTIAL (PRIMARY) HYPERTENSION 08/24/2017 RACHEL, BOBAN N Ot I25.10 ATH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 08/24/2017 RACHEL, BOBAN N Ot M79.7 FIBROMYALGIA 08/24/2017 RACHEL, BOBAN N Ot Z48.812 ENCNTR FOR SURGICAL AFTCR FOLLOWING SURG 08/24/2017 RACHEL, BOBAN N Ot Z79.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 08/24/2017 RACHEL, BOBAN N Ot Z87.891 PERSONAL HISTORY OF NICOTINE DEPENDENCE 08/25/2017 RACHEL, BOBAN N Ot D47.1 CHRONIC MYELOPROLIFERATIVE DISEASE 08/25/2017 RACHEL, BOBAN N Ot E11.9 TYPE 2 DIABETES MELLITUS WITHOUT COMPLIC 08/25/2017 RACHEL, BOBAN N Ot E78.5 HYPERLIPIDEMIA, UNSPECIFIED 08/25/2017 RACHEL, BOBAN N Ot I10 ESSENTIAL (PRIMARY) HYPERTENSION 08/25/2017 RACHEL, BOBAN N Ot I25.10 ATH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 08/25/2017 RACHEL BOBAN N Ot M79.7 FIBROMYALGIA 08/25/2017 RACHEL BOBAN N Ot Z48.812 ENCNTR FOR SURGICAL AFTCR FOLLOWING SURG 08/25/2017 RACHEL, BOBAN N Ot Z79.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 08/25/2017 RACHEL, BOBAN N Ot Z87.891 PERSONAL HISTORY OF NICOTINE DEPENDENCE 08/26/2017 HUNTER BOLANOS, WINSTON Grubbs Ot I12.9 HYPERTENSIVE CHRONIC KIDNEY DISEASE W ST 08/26/2017 HUNTER BOLANOS, WINSTON Grubbs Ot N18.3 CHRONIC KIDNEY DISEASE, STAGE 3 (MODERAT 08/30/2017 HUNTER BOLANOS, WINSTON Grubbs Ot I12.9 HYPERTENSIVE CHRONIC KIDNEY DISEASE W ST 08/30/2017 HUNTER BOLANOS, WINSTON L Ot N18.3 CHRONIC KIDNEY DISEASE, STAGE 3 (MODERAT 09/01/2017 SERG ARIAS APRN Ot 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 09/01/2017 SERG ARIAS APRN Ot I12 .9 HYPERTENSIVE CHRONIC KIDNEY DISEASE W ST 09/01/2017 SEGR ARIAS APRN Ot I25.10 ATH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 09/01/2017 SERG ARIAS APRN Ot J44 .9 CHRONIC OBSTRUCTIVE PULMONARY DISEASE, U 09/01/2017 SERG ARIAS APRN Ot K21 .9 GASTRO-ESOPHAGEAL REFLUX DISEASE WITHOUT 09/01/2017 SERG ARIAS APRN Ot M25.562 PAIN IN LEFT KNEE 09/01/2017 SERG ARIAS APRN Ot N18 .9 CHRONIC KIDNEY DISEASE, UNSPECIFIED 09/01/2017 SERG ARIAS APRN Ot S70.12XA CONTUSION OF LEFT THIGH, INITIAL ENCOUNT 09/01/2017 SERG ARIAS APRN Ot W22.09XA STRIKING AGAINST OTHER STATIONARY OBJECT 09/01/2017 SERG ARIAS APRN Ot Z79.02 PENITENTIARY (CURRENT) USE OF ANTITHROMBOTI 09/01/2017 SERG ARIAS APRN Ot Z79.82 STOCK WORKER (CURRENT) USE OF ASPIRIN 09/01/2017 SERG ARIAS APRN Ot Z79.84 PENITENTIARY (CURRENT) USE OF ORAL HYPOGLYC 09/01/2017 SERG ARIAS APRN Ot Z87.891 PERSONAL HISTORY OF NICOTINE DEPENDENCE 09/01/2017 SERG ARIAS APRN Ot Z88 .1 ALLERGY STATUS TO OTHER ANTIBIOTIC AGENT 09/01/2017 SERG ARIAS APRN Ot Z88 .5 ALLERGY STATUS TO NARCOTIC AGENT STATUS 09/01/2017 SERG ARIAS APRN Ot Z88 .8 ALLERGY STATUS TO OTH DRUG/MEDS/BIOL SUB 09/01/2017 SERG ARIAS APRN Ot Z90.710 ACQUIRED ABSENCE OF BOTH CERVIX AND UTER 09/01/2017 SERG ARIAS APRN Ot Z90.89 ACQUIRED ABSENCE OF OTHER ORGANS 09/01/2017 SERG ARIAS APRN Ot Z95 .5 PRESENCE OF CORONARY ANGIOPLASTY IMPLANT 09/02/2017 VIRI GARCIA APRN Ot G47.30 SLEEP APNEA, UNSPECIFIED 09/02/2017 VIRI GARCIA APRN Ot J30.2 OTHER SEASONAL ALLERGIC RHINITIS 09/02/2017 VIRI GARCIA APRN Ot J44.9 CHRONIC OBSTRUCTIVE PULMONARY DISEASE, U 09/02/2017 VIRI GARCIA APRN Ot R06.00 DYSPNEA, UNSPECIFIED 09/02/2017 Ot 723.4 BRAC HIAL NEURITIS NOS 09/02/2017 Ot 723.0 CERV ICAL SPINAL STENOSIS 09/02/2017 Ot V72.63 PRE -PROCEDURAL LABORATORY EXAMINATION 09/02/2017 Ot V72.81 [id number] CARDIOVASCULAR 09/02/2017 Ot V74.8 SCRE EN-BACTERIAL DIS NEC 09/02/2017 ERMA GÓMEZ MD Ot 238.79 OTHER LYMPHATIC AND HEMATOPOIETIC TISSUE 09/02/2017 ERMA GÓMEZ MD Ot 250.00 DIAB FARRUKH WO COMPL, TYPE II OR UNSPEC TY 09/02/2017 ERMA GÓMEZ MD Ot 272.4 HYPERLIPIDEMIA NEC/NOS 09/02/2017 ERMA GÓMEZ MD Ot 305.1 TOBACCO USE DISORDER 09/02/2017 ERMA GÓMEZ MD Ot 401.9 HYPERTENSION NOS 09/02/2017 ERMA GÓMEZ MD Ot 414.00 CORON ATHEROSCLER NOS TYPE VESSEL, NATIV 09/02/2017 ERMA GÓMEZ MD Ot 440.1 RENAL ARTERY ATHEROSCLER 09/02/2017 ERMA GÓMEZ MD Ot 496 CHR AIRWAY OBSTRUCT NEC 09/02/2017 ERMA GÓMEZ MD Ot 788.41 URINARY FREQUENCY 09/02/2017 ERMA GÓMEZ MD Ot V58.69 OTH MED,LT,CURRENT USE 09/02/2017 NICK SEGOVIA LINK MACHINE OPERATOR Ot 793. 89 OTH (ABN) FINDINGS ON RADIOLOGICAL EXAMI 09/02/2017 ERMA GÓMEZ MD Ot 238.79 OTHER LYMPHATIC AND HEMATOPOIETIC TISSUE 09/02/2017 ERMA GÓMEZ MD Ot 250.00 DIAB FARRUKH WO COMPL, TYPE II OR UNSPEC TY 09/02/2017 ERMA GÓMEZ MD Ot 272.4 HYPERLIPIDEMIA NEC/NOS 09/02/2017 ERMA GÓMEZ MD Ot 401.9 HYPERTENSION NOS 09/02/2017 ERMA GÓMEZ MD Ot 414.00 CORON ATHEROSCLER NOS TYPE VESSEL, NATIV 09/02/2017 ERMA GÓMEZ MD Ot 716.90 ARTHROPATHY NOS-UNSPEC 09/02/2017 ERMA GÓMEZ MD Ot 729.1 MYALGIA AND MYOSITIS NOS 09/02/2017 ERMA GÓMEZ MD Ot V15.82 HISTORY OF TOBACCO USE 09/02/2017 ERMA GÓMEZ MD Ot V58.63 LONG-TERM(CURRENT)USE OF ANTIPLATELET/AN 09/02/2017 ERMA GÓMEZ MD Ot V58.66 LONG-TERM (CURRENT) USE OF ASPIRIN 09/02/2017 ERMA GÓMEZ MD Ot V58.69 OT MED,LT,CURRENT USE 09/02/2017 SUSY BOLANOS, TAE Pedraza Ot 592.0 CALCULUS OF KIDNEY 09/02/2017 ERMA GÓMEZ MD Ot 174.9 MALIGN NEOPL BREAST NOS 09/02/2017 RONIT HEADLEY MD Ot 784 .1 THROAT PAIN 09/02/2017 RONIT HEADLEY MD Ot V45 .4 ARTHRODESIS STATUS 09/02/2017 ERMA GÓMEZ MD Ot V76.12 OT SCREEN MAMMO-MALIGN NEOPLASM OF RUI 09/02/2017 ROBYN MEZA MD Ot 717 .2 DERANG POST MED MENISCUS 09/02/2017 ROBYN MEZA MD Ot 717.82 OLD DISRUPT MED COLLAT 09/02/2017 ERMA GÓMEZ MD Ot Z12.31 ENCNTR SCREEN MAMMOGRAM FOR MALIGNANT NE 09/02/2017 CHARMAINE SKAGGS MD Ot M47.8 12 SPONDYLOSIS W/O MYELOPATHY OR RADICULOPA 09/02/2017 CHARMAINE SKAGGS MD Ot 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, HIGH 09/02/2017 CHARMAINE SKAGGS MD Ot Z98.1 ARTHRODESIS STATUS 09/02/2017 CHARMAINE SKAGGS MD Ot M54.2 CERVICALGIA 09/02/2017 VANDANA RAMOS Ot D47.1 CHRONIC MYELOPROLIFERATIVE DISEASE 09/02/2017 VANDANA RAMOS Ot E11.9 TYPE 2 DIABETES MELLITUS WITHOUT COMPLIC 09/02/2017 VANDANA RAMSO Ot E78.5 HYPERLIPIDEMIA, UNSPECIFIED 09/02/2017 VANDANA RAMOS Ot I10 ESSENTIAL (PRIMARY) HYPERTENSION 09/02/2017 VANDANA ARMOS Ot I25.10 ATH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 09/02/2017 VANDANA RAMOS Ot M79.7 FIBROMYALGIA 09/02/2017 VANDANA RAMOS Ot Z48.812 ENCNTR FOR SURGICAL AFTCR FOLLOWING SURG 09/02/2017 VANDANA RAMOS Ot Z79.899 OTHER PENITENTIARY (CURRENT) DRUG THERAPY 09/02/2017 VANDANA RAMOS Ot Z87.891 PERSONAL HISTORY OF NICOTINE DEPENDENCE 09/02/2017 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 Ot N63.10 UNSPECIFIED LUMP IN THE RIGHT BREAST, UN 09/02/2017 VIRI GARCIA APRN Ot G47.30 SLEEP APNEA, UNSPECIFIED 09/02/2017 VIRI GARCIA APRN Ot J30.2 OTHER SEASONAL ALLERGIC RHINITIS 09/02/2017 VIRI GARCIA APRN Ot J44.9 CHRONIC OBSTRUCTIVE PULMONARY DISEASE, U 09/02/2017 VIRI GARCIA APRN Ot R06.00 DYSPNEA, UNSPECIFIED 09/02/2017 WINSTON HARRISON MD Ot I12.9 HYPERTENSIVE CHRONIC KIDNEY DISEASE W ST 09/02/2017 WINSTON HARRISON MD Ot N18.3 CHRONIC KIDNEY DISEASE, STAGE 3 (MODERAT 09/03/2017 SERG ARIAS APRN Ot 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 09/03/2017 SERG ARIAS APRN Ot I12 .9 HYPERTENSIVE CHRONIC KIDNEY DISEASE W ST 09/03/2017 SERG ARIAS APRN Ot I25.10 ATH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 09/03/2017 SERG ARIAS APRN Ot J44 .9 CHRONIC OBSTRUCTIVE PULMONARY DISEASE, U 09/03/2017 SERG ARIAS APRN Ot K21 .9 GASTRO-ESOPHAGEAL REFLUX DISEASE WITHOUT 09/03/2017 SERG ARIAS APRN Ot M25.562 PAIN IN LEFT KNEE 09/03/2017 SERG ARIAS APRN Ot N18 .9 CHRONIC KIDNEY DISEASE, UNSPECIFIED 09/03/2017 SERG ARIAS APRN Ot S70.12XA CONTUSION OF LEFT THIGH, INITIAL ENCOUNT 09/03/2017 SERG ARIAS APRN Ot W22.09XA STRIKING AGAINST OTHER STATIONARY OBJECT 09/03/2017 SERG ARIAS APRN Ot Z79.02 STOCK WORKER (CURRENT) USE OF ANTITHROMBOTI 09/03/2017 SERG ARIAS APRN Ot Z79.82 STOCK WORKER (CURRENT) USE OF ASPIRIN 09/03/2017 SERG ARIAS APRN Ot Z79.84 PENITENTIARY (CURRENT) USE OF ORAL HYPOGLYC 09/03/2017 SERG ARIAS APRN Ot Z87.891 PERSONAL HISTORY OF NICOTINE DEPENDENCE 09/03/2017 SERG ARIAS APRN Ot Z88 .1 ALLERGY STATUS TO OTHER ANTIBIOTIC AGENT 09/03/2017 SERG ARIAS APRN Ot Z88 .5 ALLERGY STATUS TO NARCOTIC AGENT STATUS 09/03/2017 SERG ARIAS APRN Ot Z88 .8 ALLERGY STATUS TO OT DRUG/MEDS/BIOL SUB 09/03/2017 SERG ARIAS APRN Ot Z90.710 ACQUIRED ABSENCE OF BOTH CERVIX AND UTER 09/03/2017 SERG ARIAS APRN Ot Z90.89 ACQUIRED ABSENCE OF OTHER ORGANS 09/03/2017 SERG ARIAS APRN Ot Z95 .5 PRESENCE OF CORONARY ANGIOPLASTY IMPLANT 09/07/2017 SERG ARIAS APRN Ot 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 09/07/2017 SERG ARIAS APRN Ot I12 .9 HYPERTENSIVE CHRONIC KIDNEY DISEASE W ST 09/07/2017 SERG ARIAS APRN Ot I25.10 ATH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 09/07/2017 SERG ARIAS APRN Ot J44 .9 CHRONIC OBSTRUCTIVE PULMONARY DISEASE, U 09/07/2017 SERG ARIAS APRN Ot K21 .9 GASTRO-ESOPHAGEAL REFLUX DISEASE WITHOUT 09/07/2017 SERG ARIAS APRN Ot M25.562 PAIN IN LEFT KNEE 09/07/2017 SERG ARIAS APRN Ot N18 .9 CHRONIC KIDNEY DISEASE, UNSPECIFIED 09/07/2017 SERG ARIAS APRN Ot S70.12XA CONTUSION OF LEFT THIGH, INITIAL ENCOUNT 09/07/2017 SERG ARIAS APRN Ot W22.09XA STRIKING AGAINST OTHER STATIONARY OBJECT 09/07/2017 SERG ARIAS APRN Ot Z79.02 PENITENTIARY (CURRENT) USE OF ANTITHROMBOTI 09/07/2017 SERG ARIAS APRN Ot Z79.82 PENITENTIARY (CURRENT) USE OF ASPIRIN 09/07/2017 SERG ARIAS APRN, Ot Z79.84 STOCK WORKER (CURRENT) USE OF ORAL HYPOGLYC 09/07/2017 SERG ARIAS MILITARY EXCHANGE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 Ot Z87.891 PERSONAL HISTORY OF NICOTINE DEPENDENCE 09/07/2017 SERG ARIAS APRN Ot Z88 .1 ALLERGY STATUS TO OTHER ANTIBIOTIC AGENT 09/07/2017 SERG ARIAS MILITARY EXCHANGE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 Ot Z88 .5 ALLERGY STATUS TO NARCOTIC AGENT STATUS 09/07/2017 SERG ARIAS APRN Ot Z88 .8 ALLERGY STATUS TO OTH DRUG/MEDS/BIOL SUB 09/07/2017 SERG ARIAS APRN Ot Z90.710 ACQUIRED ABSENCE OF BOTH CERVIX AND UTER 09/07/2017 SERG ARIAS APRN Ot Z90.89 ACQUIRED ABSENCE OF OTHER ORGANS 09/07/2017 SERG ARIAS APRN Ot Z95 .5 PRESENCE OF CORONARY ANGIOPLASTY IMPLANT 09/15/2017 VANDANA RAMOS Ot D47.1 CHRONIC MYELOPROLIFERATIVE DISEASE 09/15/2017 VANDANA RAMOS Ot E11.9 TYPE 2 DIABETES MELLITUS WITHOUT COMPLIC 09/15/2017 VANDANA RAMOS Ot E78.5 HYPERLIPIDEMIA, UNSPECIFIED 09/15/2017 VANDANA RAMOS Ot I10 ESSENTIAL (PRIMARY) HYPERTENSION 09/15/2017 VANDANA RAMOS Ot I25.10 ATH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 09/15/2017 VANDANA RAMOS Ot M79.7 FIBROMYALGIA 09/15/2017 VANDANA RAMOS Ot Z48.812 ENCNTR FOR SURGICAL AFTCR FOLLOWING SURG 09/15/2017 VANDANA RAMOS Ot Z79.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 09/15/2017 VANDANA RAMOS Ot Z87.891 PERSONAL HISTORY OF NICOTINE DEPENDENCE 09/15/2017 WINSTON HARRISON MD Ot I12.9 HYPERTENSIVE CHRONIC KIDNEY DISEASE W ST 09/15/2017 WINSTON HARRISON MD Ot N18.3 CHRONIC KIDNEY DISEASE, STAGE 3 (MODERAT 09/30/2017 VANDANA RAMOS Ot D47.1 CHRONIC MYELOPROLIFERATIVE DISEASE 09/30/2017 VANDANA RAMOS Ot E11.9 TYPE 2 DIABETES MELLITUS WITHOUT COMPLIC 09/30/2017 VANDANA RAMOS Ot E78.5 HYPERLIPIDEMIA, UNSPECIFIED 09/30/2017 VANDANA RAMOS Ot I10 ESSENTIAL (PRIMARY) HYPERTENSION 09/30/2017 RAHCEL, BOBAN N Ot I25.10 ATH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 09/30/2017 RACHEL, BOBAN N Ot M79.7 FIBROMYALGIA 09/30/2017 RACHEL, BOBAN N Ot Z48.812 ENCNTR FOR SURGICAL AFTCR FOLLOWING SURG 09/30/2017 RACHEL, BOBAN N Ot Z79.899 OTHER PENITENTIARY (CURRENT) DRUG THERAPY 09/30/2017 RACHEL, BOBAN N Ot Z87.891 PERSONAL HISTORY OF NICOTINE DEPENDENCE 10/01/2017 RACHEL, BOBAN N Ot D47.1 CHRONIC MYELOPROLIFERATIVE DISEASE 10/01/2017 RACHEL, BOBAN N Ot E11.9 TYPE 2 DIABETES MELLITUS WITHOUT COMPLIC 10/01/2017 RACHEL, BOBAN N Ot E78.5 HYPERLIPIDEMIA, UNSPECIFIED 10/01/2017 RACHEL, BOBAN N Ot I10 ESSENTIAL (PRIMARY) HYPERTENSION 10/01/2017 RACHEL, BOBAN N Ot I25.10 ATH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 10/01/2017 RACHEL, BOBAN N Ot M79.7 FIBROMYALGIA 10/01/2017 RACHEL, BOBAN N Ot Z48.812 ENCNTR FOR SURGICAL AFTCR FOLLOWING SURG 10/01/2017 RACHEL, BOBAN N Ot Z79.899 OTHER PENITENTIARY (CURRENT) DRUG THERAPY 10/01/2017 RACHEL, BOBAN N Ot Z87.891 PERSONAL HISTORY OF NICOTINE DEPENDENCE 10/06/2017 RACHEL, BOBAN N Ot D47.1 CHRONIC MYELOPROLIFERATIVE DISEASE 10/06/2017 RACHEL, BOBAN N Ot E11.9 TYPE 2 DIABETES MELLITUS WITHOUT COMPLIC 10/06/2017 RACHEL, BOBAN N Ot E78.5 HYPERLIPIDEMIA, UNSPECIFIED 10/06/2017 RACHEL, BOBAN N Ot I10 ESSENTIAL (PRIMARY) HYPERTENSION 10/06/2017 RACHEL, BOBAN N Ot I25.10 ATH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 10/06/2017 RACHEL, BOBAN N Ot M79.7 FIBROMYALGIA 10/06/2017 RACHEL, BOBAN N Ot Z48.812 ENCNTR FOR SURGICAL AFTCR FOLLOWING SURG 10/06/2017 RACHEL, BOBAN N Ot Z79.899 OTHER PENITENTIARY (CURRENT) DRUG THERAPY 10/06/2017 RACHEL, BOBAN N Ot Z87.891 PERSONAL HISTORY OF NICOTINE DEPENDENCE 10/26/2017 Ot 723.4 BRAC HIAL NEURITIS NOS 10/26/2017 Ot 723.0 CERV ICAL SPINAL STENOSIS 10/26/2017 Ot V72.63 PRE -PROCEDURAL LABORATORY EXAMINATION 10/26/2017 Ot V72.81 [id number] CARDIOVASCULAR 10/26/2017 Ot V74.8 SCRE EN-BACTERIAL DIS NEC 10/26/2017 ERMA GÓMEZ MD Ot 238.79 OTHER LYMPHATIC AND HEMATOPOIETIC TISSUE 10/26/2017 ERMA GÓMEZ MD Ot 250.00 DIAB FARRUKH WO COMPL, TYPE II OR UNSPEC TY 10/26/2017 ERMA GÓMEZ MD Ot 272.4 HYPERLIPIDEMIA NEC/NOS 10/26/2017 ERMA GÓMEZ MD Ot 305.1 TOBACCO USE DISORDER 10/26/2017 ERMA GÓMEZ MD Ot 401.9 HYPERTENSION NOS 10/26/2017 ERMA GÓMEZ MD Ot 414.00 CORON ATHEROSCLER NOS TYPE VESSEL, NATIV 10/26/2017 ERMA GÓMEZ MD Ot 440.1 RENAL ARTERY ATHEROSCLER 10/26/2017 ERMA GÓMEZ MD Ot 496 CHR AIRWAY OBSTRUCT NEC 10/26/2017 ERMA GÓMEZ MD Ot 788.41 URINARY FREQUENCY 10/26/2017 ERMA GÓMEZ MD Ot V58.69 OTH MED,LT,CURRENT USE 10/26/2017 NICK SEGOVIA LINK MACHINE OPERATOR Ot 793. 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 NOS TYPE VESSEL, NATIV 10/26/2017 ERMA GÓMEZ MD Ot 716.90 ARTHROPATHY NOS-UNSPEC 10/26/2017 ERMA GÓMEZ MD Ot 729.1 MYALGIA AND MYOSITIS NOS 10/26/2017 ERMA GÓMEZ MD Ot V15.82 HISTORY OF TOBACCO USE 10/26/2017 ERMA GÓMEZ MD Ot V58.63 LONG-TERM(CURRENT)USE OF ANTIPLATELET/AN 10/26/2017 ERMA GÓMEZ MD Ot V58.66 LONG-TERM (CURRENT) USE OF ASPIRIN 10/26/2017 ERMA GÓMEZ MD Ot V58.69 OT MED,LT,CURRENT USE 10/26/2017 SUSY BOLANOS, TAE A Ot 592.0 CALCULUS OF KIDNEY 10/26/2017 ERMA GÓMEZ MD Ot 174.9 MALIGN NEOPL BREAST NOS 10/26/2017 FANG BOLANOS, RONIT Marquez Ot 784 .1 THROAT PAIN 10/26/2017 RONIT HEADLEY MD Ot V45 .4 ARTHRODESIS STATUS 10/26/2017 ERMA GÓMEZ MD Ot V76.12 OTH SCREEN MAMMO-MALIGN NEOPLASM OF RUI 10/26/2017 ROBYN MEZA MD Ot 717 .2 DERANG POST MED MENISCUS 10/26/2017 ROBYN MEZA MD Ot 717.82 OLD DISRUPT MED COLLAT 10/26/2017 ERMA GÓMEZ MD Ot Z12.31 ENCNTR SCREEN MAMMOGRAM FOR MALIGNANT NE 10/26/2017 CHARMAINE SKAGGS MD Ot M47.8 12 SPONDYLOSIS W/O MYELOPATHY OR RADICULOPA 10/26/2017 CHARMAINE SKAGGS MD Ot 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, HIGH 10/26/2017 CHARMAINE SKAGGS MD Ot Z98.1 ARTHRODESIS STATUS 10/26/2017 CHARMAINE SKAGGS MD Ot M54.2 CERVICALGIA 10/26/2017 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 Ot N63.10 UNSPECIFIED LUMP IN THE RIGHT BREAST, UN 10/26/2017 VIRI GARCIA APRN Ot G47.30 SLEEP APNEA, UNSPECIFIED 10/26/2017 VIRI GARCIA APRN Ot J30.2 OTHER SEASONAL ALLERGIC RHINITIS 10/26/2017 VIRI GARCIA APRN Ot J44.9 CHRONIC OBSTRUCTIVE PULMONARY DISEASE, U 10/26/2017 VIRI GARCIA APRN Ot R06.00 DYSPNEA, UNSPECIFIED 10/26/2017 WINSTON HARRISON MD Ot I12.9 HYPERTENSIVE CHRONIC KIDNEY DISEASE W ST 10/26/2017 WINSTON HARRISON MD Ot N18.3 CHRONIC KIDNEY DISEASE, STAGE 3 (MODERAT 11/03/2017 ALEJANDRA BOLANOS, LARA Ot D47.1 CHRONIC MYELOPROLIFERATIVE DISEASE 11/03/2017 LARA ROBERTS MD Ot D50.9 IRON DEFICIENCY ANEMIA, UNSPECIFIED 11/03/2017 LARA ROBERTS MD Ot 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 11/03/2017 LARA ROBERTS MD Ot E78.5 HYPERLIPIDEMIA, UNSPECIFIED 11/03/2017 LARA ROBERTS MD Ot I12.9 HYPERTENSIVE CHRONIC KIDNEY DISEASE W ST 11/03/2017 LARA ROBERTS MD Ot I25.10 ATH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 11/03/2017 LARA ROBERTS MD Ot M79.7 FIBROMYALGIA 11/03/2017 LARA ROBERTS MD Ot N18.3 CHRONIC KIDNEY DISEASE, STAGE 3 (MODERAT 11/03/2017 LARA ROBERTS MD Ot Z48.812 ENCNTR FOR SURGICAL AFTCR FOLLOWING SURG 11/03/2017 LARA ROBERTS MD, Ot Z79.899 OTHER PENITENTIARY (CURRENT) DRUG THERAPY 11/03/2017 LARA ROBERTS MD Ot Z87.891 PERSONAL HISTORY OF NICOTINE DEPENDENCE 11/12/2017 LARA ROBERTS MD Ot E04.2 NONTOXIC MULTINODULAR GOITER 11/12/2017 LARA ROBERTS MD Ot N64.59 OTHER SIGNS AND SYMPTOMS IN BREAST 12/01/2017 LARA ROBERTS MD Ot E04.2 NONTOXIC MULTINODULAR GOITER 12/01/2017 LARA ROBERTS MD Ot N64.59 OTHER SIGNS AND SYMPTOMS IN BREAST 12/06/2017 LARA ROBERTS MD Ot E04.2 NONTOXIC MULTINODULAR GOITER 12/06/2017 LARA ROBERTS MD Ot N64.59 OTHER SIGNS AND SYMPTOMS IN BREAST 12/17/2017 LARA ROBERTS MD Ot D47.1 CHRONIC MYELOPROLIFERATIVE DISEASE 12/17/2017 LARA ROBERTS MD Ot D50.9 IRON DEFICIENCY ANEMIA, UNSPECIFIED 12/17/2017 LARA ROBERTS MD Ot 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 12/17/2017 LARA ROBERTS MD Ot E78.5 HYPERLIPIDEMIA, UNSPECIFIED 12/17/2017 LARA ROBERTS MD Ot I12.9 HYPERTENSIVE CHRONIC KIDNEY DISEASE W ST 12/17/2017 LARA ROBERTS MD Ot I25.10 ATH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 12/17/2017 LARA ROBERTS MD Ot M79.7 FIBROMYALGIA 12/17/2017 LARA ROBERTS MD Ot N18.3 CHRONIC KIDNEY DISEASE, STAGE 3 (MODERAT 12/17/2017 LARA ROBERTS MD Ot Z48.812 ENCNTR FOR SURGICAL AFTCR FOLLOWING SURG 12/17/2017 LARA ROBERTS MD Ot Z79.899 OTHER PENITENTIARY (CURRENT) DRUG THERAPY 12/17/2017 LARA ROBERTS MD Ot Z87.891 PERSONAL HISTORY OF NICOTINE DEPENDENCE 12/21/2017 LARA ROBERTS MD Ot D47.1 CHRONIC MYELOPROLIFERATIVE DISEASE 12/21/2017 LARA ROBERTS MD Ot D50.9 IRON DEFICIENCY ANEMIA, UNSPECIFIED 12/21/2017 LARA ROBERTS MD Ot 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 12/21/2017 LARA ROBERTS MD Ot E78.5 HYPERLIPIDEMIA, UNSPECIFIED 12/21/2017 LARA ROBERTS MD Ot I12.9 HYPERTENSIVE CHRONIC KIDNEY DISEASE W ST 12/21/2017 LARA ROBERTS MD Ot I25.10 ATH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 12/21/2017 LARA ROBERTS MD Ot M79.7 FIBROMYALGIA 12/21/2017 LARA ROBERTS MD Ot N18.3 CHRONIC KIDNEY DISEASE, STAGE 3 (MODERAT 12/21/2017 LARA ROBERTS MD Ot Z48.812 ENCNTR FOR SURGICAL AFTCR FOLLOWING SURG 12/21/2017 LARA ROBERTS MD Ot Z79.899 OTHER PENITENTIARY (CURRENT) DRUG THERAPY 12/21/2017 LARA ROBERTS MD Ot Z87.891 PERSONAL HISTORY OF NICOTINE DEPENDENCE 01/12/2018 SIERRA BOLANOS FACC, CHRISTY FACP CCDS Ot D47.1 CHRONIC MYELOPROLIFERATIVE DISEASE 01/12/2018 SIERRA BOLANOS FACC, ALI FACP CCDS Ot E11.9 TYPE 2 DIABETES MELLITUS WITHOUT COMPLIC 01/12/2018 SIERRA BOLANOS FACC, ALI FACP CCDS Ot G47.30 SLEEP APNEA, UNSPECIFIED 01/12/2018 SIERRA BOLANOS FACC, ALI FACP CCDS Ot J44.9 CHRONIC OBSTRUCTIVE PULMONARY DISEASE, U 01/12/2018 SIERRA BOLANOS FACC, ALI FACP CCDS Ot N18.3 CHRONIC KIDNEY DISEASE, STAGE 3 (MODERAT 01/12/2018 SIERRA BOLANOS FACC, ALI FACP CCDS Ot R06.02 SHORTNESS OF BREATH 01/12/2018 SIERRA BOLANOS FACC, ALI FACP CCDS Ot R07.89 OTHER CHEST PAIN 01/12/2018 SIERRA MD FACC, ALI FACP CCDS Ot Z72.0 TOBACCO USE 01/12/2018 SIERRA BOLANOS FACC, ALI FACP CCDS Ot D47.1 CHRONIC MYELOPROLIFERATIVE DISEASE 01/12/2018 SIERRA BOLANOS FACLeno, ALI FACP CCDS Ot E11.9 TYPE 2 DIABETES MELLITUS WITHOUT COMPLIC 01/12/2018 SIERRA BOLANOS FACC, ALI FACP CCDS Ot G47.30 SLEEP APNEA, UNSPECIFIED 01/12/2018 SIERRA BOLANOS FACC, ALI FACP CCDS Ot J44.9 CHRONIC OBSTRUCTIVE PULMONARY DISEASE, U 01/12/2018 SIERRA BOLANOS FACC, ALI FACP CCDS Ot N18.3 CHRONIC KIDNEY DISEASE, STAGE 3 (MODERAT 01/12/2018 SIERRA BOLANOS FACLeno, ALI FACP CCDS Ot R06.02 SHORTNESS OF BREATH 01/12/2018 SIERRA BOLANOS FACLeno, ALI FACP CCDS Ot R07.89 OTHER CHEST PAIN 01/12/2018 SIERRA BOLANOS FACLeno, ALI FACP CCDS Ot Z72.0 TOBACCO USE 01/24/2018 LARA ROBERTS MD, Ot D47.1 CHRONIC MYELOPROLIFERATIVE DISEASE 01/24/2018 LARA ROBERTS MD, Ot D50.9 IRON DEFICIENCY ANEMIA, UNSPECIFIED 01/24/2018 LARA ROBERTS MD Ot 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 01/24/2018 LARA ROBERTS MD, Ot E78.5 HYPERLIPIDEMIA, UNSPECIFIED 01/24/2018 LARA ROBERTS MD, Ot I12.9 HYPERTENSIVE CHRONIC KIDNEY DISEASE W ST 01/24/2018 LARA ROBERTS MD Ot I25.10 ATH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 01/24/2018 LARA ROBERTS MD Ot M79.7 FIBROMYALGIA 01/24/2018 LARA ROBERTS MD, Ot N18.3 CHRONIC KIDNEY DISEASE, STAGE 3 (MODERAT 01/24/2018 LARA ROBERTS MD, Ot Z48.812 ENCNTR FOR SURGICAL AFTCR FOLLOWING SURG 01/24/2018 LARA ROBERTS MD, Ot Z79.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 01/24/2018 LARA ROBERTS MD, Ot Z87.891 PERSONAL HISTORY OF NICOTINE DEPENDENCE 01/25/2018 LARA ROBERTS MD, Ot D47.1 CHRONIC MYELOPROLIFERATIVE DISEASE 01/25/2018 LARA ROBERTS MD, Ot D50.9 IRON DEFICIENCY ANEMIA, UNSPECIFIED 01/25/2018 LARA ROBERTS MD Ot 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 01/25/2018 LARA ROBERTS MD Ot E78.5 HYPERLIPIDEMIA, UNSPECIFIED 01/25/2018 LARA ROBERTS MD Ot I12.9 HYPERTENSIVE CHRONIC KIDNEY DISEASE W ST 01/25/2018 LARA ROBERTS MD Ot I25.10 ATH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 01/25/2018 LARA ROBERTS MD Ot M79.7 FIBROMYALGIA 01/25/2018 LARA ROBERTS MD Ot N18.3 CHRONIC KIDNEY DISEASE, STAGE 3 (MODERAT 01/25/2018 LARA ROBERTS MD Ot Z48.812 ENCNTR FOR SURGICAL AFTCR FOLLOWING SURG 01/25/2018 LARA ROBERTS MD Ot Z79.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 01/25/2018 LARA ROBERTS MD Ot Z87.891 PERSONAL HISTORY OF NICOTINE DEPENDENCE 02/25/2018 LARA ROBERTS MD Ot D47.1 CHRONIC MYELOPROLIFERATIVE DISEASE 02/25/2018 LARA ROBERTS MD Ot D50.9 IRON DEFICIENCY ANEMIA, UNSPECIFIED 02/25/2018 ALEJANDRA BOLANOS, BERMUDEZ Ot 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 02/25/2018 LARA ROBERTS MD Ot E78.5 HYPERLIPIDEMIA, UNSPECIFIED 02/25/2018 LARA ROBERTS MD Ot I12.9 HYPERTENSIVE CHRONIC KIDNEY DISEASE W ST 02/25/2018 LARA ROBERTS MD Ot I25.10 ATH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 02/25/2018 LARA ROBERTS MD Ot M79.7 FIBROMYALGIA 02/25/2018 LARA ROBERTS MD Ot N18.3 CHRONIC KIDNEY DISEASE, STAGE 3 (MODERAT 02/25/2018 LARA ROBERTS MD Ot Z48.812 ENCNTR FOR SURGICAL AFTCR FOLLOWING SURG 02/25/2018 LARA ROBERTS MD Ot Z79.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 02/25/2018 LARA ROBERTS MD Ot Z87.891 PERSONAL HISTORY OF NICOTINE DEPENDENCE 03/18/2018 WINSTON HARRISON MD Ot I12.9 HYPERTENSIVE CHRONIC KIDNEY DISEASE W ST 03/18/2018 WINSTON HARRISON MD Ot N18.3 CHRONIC KIDNEY DISEASE, STAGE 3 (MODERAT 03/22/2018 LARA ROBERTS MD Ot D47.1 CHRONIC MYELOPROLIFERATIVE DISEASE 03/22/2018 LARA ROBERTS MD Ot D50.9 IRON DEFICIENCY ANEMIA, UNSPECIFIED 03/22/2018 LARA ROBERTS MD Ot 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 03/22/2018 LARA ROBERTS MD Ot E78.5 HYPERLIPIDEMIA, UNSPECIFIED 03/22/2018 LARA ROBERTS MD Ot I12.9 HYPERTENSIVE CHRONIC KIDNEY DISEASE W ST 03/22/2018 LARA ROBERTS MD Ot I25.10 ATH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 03/22/2018 LARA ROBERTS MD Ot M79.7 FIBROMYALGIA 03/22/2018 LARA ROBERTS MD Ot N18.3 CHRONIC KIDNEY DISEASE, STAGE 3 (MODERAT 03/22/2018 LARA ROBERTS MD Ot Z48.812 ENCNTR FOR SURGICAL AFTCR FOLLOWING SURG 03/22/2018 LARA ROBERTS MD Ot Z79.899 OTHER PENITENTIARY (CURRENT) DRUG THERAPY 03/22/2018 LARA ROBERTS MD Ot Z87.891 PERSONAL HISTORY OF NICOTINE DEPENDENCE 03/23/2018 LARA ROBERTS MD Ot D47.1 CHRONIC MYELOPROLIFERATIVE DISEASE 03/23/2018 LARA ROBERTS MD Ot D50.9 IRON DEFICIENCY ANEMIA, UNSPECIFIED 03/23/2018 LARA ROBERTS MD Ot 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 03/23/2018 LARA ROBERTS MD Ot E78.5 HYPERLIPIDEMIA, UNSPECIFIED 03/23/2018 LARA ROBERTS MD Ot I12.9 HYPERTENSIVE CHRONIC KIDNEY DISEASE W ST 03/23/2018 LARA ROBERTS MD Ot I25.10 ATH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 03/23/2018 LARA ROBERTS MD Ot M79.7 FIBROMYALGIA 03/23/2018 LARA ROBERTS MD Ot N18.3 CHRONIC KIDNEY DISEASE, STAGE 3 (MODERAT 03/23/2018 LARA ROBERTS MD Ot Z48.812 ENCNTR FOR SURGICAL AFTCR FOLLOWING SURG 03/23/2018 LARA ROBERTS MD Ot Z79.899 OTHER PENITENTIARY (CURRENT) DRUG THERAPY 03/23/2018 LARA ROBERTS MD Ot Z87.891 PERSONAL HISTORY OF NICOTINE DEPENDENCE 03/30/2018 LARA ROBERTS MD Ot D47.1 CHRONIC MYELOPROLIFERATIVE DISEASE 03/30/2018 LARA ROBERTS MD Ot D50.9 IRON DEFICIENCY ANEMIA, UNSPECIFIED 03/30/2018 LARA ROBERTS MD Ot 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 03/30/2018 LARA ROBERTS MD Ot E78.5 HYPERLIPIDEMIA, UNSPECIFIED 03/30/2018 LARA ROBERTS MD Ot I12.9 HYPERTENSIVE CHRONIC KIDNEY DISEASE W ST 03/30/2018 LARA ROBERTS MD Ot I25.10 ATH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 03/30/2018 LRAA ROBERTS MD Ot M79.7 FIBROMYALGIA 03/30/2018 LARA ROBERTS MD Ot N18.3 CHRONIC KIDNEY DISEASE, STAGE 3 (MODERAT 03/30/2018 LARA ROBERTS MD Ot Z48.812 ENCNTR FOR SURGICAL AFTCR FOLLOWING SURG 03/30/2018 LARA ROBERTS MD Ot Z79.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 03/30/2018 LARA ROBERTS MD Ot Z87.891 PERSONAL HISTORY OF NICOTINE DEPENDENCE 05/06/2018 WINSTON HARRISON MD Ot E04.2 NONTOXIC MULTINODULAR GOITER 05/06/2018 WINSTON HARRISON MD Ot E78.5 HYPERLIPIDEMIA, UNSPECIFIED 05/06/2018 WINSTON HARRISON MD Ot I12.9 HYPERTENSIVE CHRONIC KIDNEY DISEASE W ST 05/06/2018 WINSTON HARRISON MD Ot I25.10 ATH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 05/06/2018 WINSTON HARRISON MD Ot N18.3 CHRONIC KIDNEY DISEASE, STAGE 3 (MODERAT 05/06/2018 Ot E78.5 HYPE RLIPIDEMIA, UNSPECIFIED 05/06/2018 Ot I12.9 HYPE RTENSIVE CHRONIC KIDNEY DISEASE W ST 05/06/2018 Ot 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 05/06/2018 Ot N18.3 DEEP FAT FRY COOK ROBERTO KIDNEY DISEASE, STAGE 3 (MODERAT 05/06/2018 Ot E04.2 NONT OXIC MULTINODULAR GOITER 05/16/2018 WINSTON HARRISON MD Ot E04.2 NONTOXIC MULTINODULAR GOITER 05/16/2018 WINSTON HARRISON MD Ot E78.5 HYPERLIPIDEMIA, UNSPECIFIED 05/16/2018 WINSTON HARRISON MD Ot I12.9 HYPERTENSIVE CHRONIC KIDNEY DISEASE W ST 05/16/2018 WINSTON HARRISON MD Ot I25.10 ATH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 05/16/2018 WINSTON HARRISON MD Ot N18.3 CHRONIC KIDNEY DISEASE, STAGE 3 (MODERAT 05/17/2018 JOEL MORILLO Ot E04.2 NONTOXIC MULTINODULAR GOITER 05/26/2018 Ot E04.2 NONT OXIC MULTINODULAR GOITER 05/26/2018 Ot E78.5 HYPE RLIPIDEMIA, UNSPECIFIED 05/26/2018 Ot I12.9 HYPE RTENSIVE CHRONIC KIDNEY DISEASE W ST 05/26/2018 Ot I25.10 ATH 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 05/26/2018 Ot N18.3 DEEP FAT FRY COOK ROBERTO KIDNEY DISEASE, STAGE 3 (MODERAT 06/02/2018 Ot E04.2 NONT OXIC MULTINODULAR GOITER 06/09/2018 JOEL MORILLO Ot E04.2 NONTOXIC MULTINODULAR GOITER 06/09/2018 LARA ROBERTS MD Ot D47.1 CHRONIC MYELOPROLIFERATIVE DISEASE 06/09/2018 LARA ROBERTS MD Ot D50.9 IRON DEFICIENCY ANEMIA, UNSPECIFIED 06/09/2018 LARA ROBERTS MD Ot 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 06/09/2018 LARA ROBERTS MD Ot E78.5 HYPERLIPIDEMIA, UNSPECIFIED 06/09/2018 LARA ROBERTS MD Ot I12.9 HYPERTENSIVE CHRONIC KIDNEY DISEASE W ST 06/09/2018 LARA ROBERTS MD Ot I25.10 ATH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 06/09/2018 LARA ROBERTS MD Ot M79.7 FIBROMYALGIA 06/09/2018 LARA ROBERTS MD Ot N18.3 CHRONIC KIDNEY DISEASE, STAGE 3 (MODERAT 06/09/2018 LARA ROBERTS MD Ot Z48.812 ENCNTR FOR SURGICAL AFTCR FOLLOWING SURG 06/09/2018 LARA ROBERTS MD Ot Z79.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 06/09/2018 LAAR ROBERTS MD Ot Z87.891 PERSONAL HISTORY OF NICOTINE DEPENDENCE 06/10/2018 JOEL MORILLO Ot E04.2 NONTOXIC MULTINODULAR GOITER 07/21/2018 JOEL MORILLO Ot Z12.31 ENCNTR SCREEN MAMMOGRAM FOR MALIGNANT NE 07/24/2018 JOEL MORILLO Ot Z12.31 ENCNTR SCREEN MAMMOGRAM FOR MALIGNANT NE 07/28/2018 JOEL MORILLO Ot Z12.31 ENCNTR SCREEN MAMMOGRAM FOR MALIGNANT NE 08/03/2018 LARA ROBERTS MD Ot D47.1 CHRONIC MYELOPROLIFERATIVE DISEASE 08/03/2018 LARA ROBERTS MD Ot D50.9 IRON DEFICIENCY ANEMIA, UNSPECIFIED 08/03/2018 LARA ROBERTS MD Ot E04.2 NONTOXIC MULTINODULAR GOITER 08/03/2018 LARA ROBERTS MD Ot 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 08/03/2018 LARA ROBERTS MD Ot E78.5 HYPERLIPIDEMIA, UNSPECIFIED 08/03/2018 LARA ROBERTS MD Ot I12.9 HYPERTENSIVE CHRONIC KIDNEY DISEASE W ST 08/03/2018 LARA ROBERTS MD Ot I25.10 ATH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 08/03/2018 LARA ROBERTS MD Ot M79.7 FIBROMYALGIA 08/03/2018 LARA ROBERTS MD Ot N18.3 CHRONIC KIDNEY DISEASE, STAGE 3 (MODERAT 08/03/2018 LARA ROBERTS MD Ot Z48.812 ENCNTR FOR SURGICAL AFTCR FOLLOWING SURG 08/03/2018 LARA ROBERTS MD Ot Z79.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 08/03/2018 LARA ROBERTS MD Ot Z87.891 PERSONAL HISTORY OF NICOTINE DEPENDENCE 08/04/2018 Ot E04.2 NONT OXIC MULTINODULAR GOITER 08/04/2018 LARA ROBERTS MD Ot D47.1 CHRONIC MYELOPROLIFERATIVE DISEASE 08/04/2018 LARA ROBERTS MD Ot D50.9 IRON DEFICIENCY ANEMIA, UNSPECIFIED 08/04/2018 LARA ROBERTS MD Ot E04.2 NONTOXIC MULTINODULAR GOITER 08/04/2018 LARA ROBERTS MD Ot 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 08/04/2018 LARA ROBERTS MD Ot E78.5 HYPERLIPIDEMIA, UNSPECIFIED 08/04/2018 LARA ROBERTS MD Ot I12.9 HYPERTENSIVE CHRONIC KIDNEY DISEASE W ST 08/04/2018 LARA ROBERTS MD Ot I25.10 ATH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 08/04/2018 LARA ROBERTS MD Ot M79.7 FIBROMYALGIA 08/04/2018 LARA ROBERTS MD Ot N18.3 CHRONIC KIDNEY DISEASE, STAGE 3 (MODERAT 08/04/2018 ALEJANDRA BOLANOS, LARA Ot Z48.812 ENCNTR FOR SURGICAL AFTCR FOLLOWING SURG 08/04/2018 ALEJANDRA BOLANOS, LARA Ot Z79.899 OTHER PENITENTIARY (CURRENT) DRUG THERAPY 08/04/2018 ALEJANDRA BOLANOS, LARA Ot Z87.891 PERSONAL HISTORY OF NICOTINE DEPENDENCE 08/11/2018 JOEL MORILLOP Ot Z12.31 ENCNTR SCREEN MAMMOGRAM FOR MALIGNANT NE 08/18/2018 HUNTER BOLANOS, WINSTON Grubbs Ot E04.2 NONTOXIC MULTINODULAR GOITER 08/18/2018 WINSTON HARRISON MD Ot E78.5 HYPERLIPIDEMIA, UNSPECIFIED 08/18/2018 WINSTON HARRISON MD Ot I12.9 HYPERTENSIVE CHRONIC KIDNEY DISEASE W ST 08/18/2018 WINSTON HARRISON MD Ot I25.10 ATH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 08/18/2018 WINSTON HARRISON MD Ot N18.3 CHRONIC KIDNEY DISEASE, STAGE 3 (MODERAT 08/19/2018 DORINDA BOLANOS, KEMI Ot E11.9 TYPE 2 DIABETES MELLITUS WITHOUT COMPLIC 08/19/2018 DORINDA BOLANOS, KEMI Ot I12.9 HYPERTENSIVE CHRONIC KIDNEY DISEASE W ST 08/19/2018 DORINDA BOLANOS, KEMI Ot N18.3 CHRONIC KIDNEY DISEASE, STAGE 3 (MODERAT 08/28/2018 Ot E04.2 NONT OXIC MULTINODULAR GOITER 08/31/2018 Ot E04.2 NONT OXIC MULTINODULAR GOITER 08/31/2018 VANDANA RAMOS Ot D47.1 CHRONIC MYELOPROLIFERATIVE DISEASE 08/31/2018 VANDANA RAMOS Ot D50.9 IRON DEFICIENCY ANEMIA, UNSPECIFIED 08/31/2018 VANDANA RAMOS Ot E04.2 NONTOXIC MULTINODULAR GOITER 08/31/2018 VANDANA RAMOS Ot 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 08/31/2018 VANDANA RAMOS Ot E78.5 HYPERLIPIDEMIA, UNSPECIFIED 08/31/2018 VANDANA RAMOS Ot I12.9 HYPERTENSIVE CHRONIC KIDNEY DISEASE W ST 08/31/2018 VANDANA RAMOS Ot I25.10 ATH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 08/31/2018 RACHELVANDANA N Ot M79.7 FIBROMYALGIA 08/31/2018 VANDANA RAMOS N Ot N18.3 CHRONIC KIDNEY DISEASE, STAGE 3 (MODERAT 08/31/2018 VANDANA RAMOS N Ot Z48.812 ENCNTR FOR SURGICAL AFTCR FOLLOWING SURG 08/31/2018 RACHELVANDANA Ot Z79.899 OTHER PENITENTIARY (CURRENT) DRUG THERAPY 08/31/2018 VANDANA RAMOS N Ot Z87.891 PERSONAL HISTORY OF NICOTINE DEPENDENCE 09/07/2018 DORINDA BOLANOS, KEMI Ot E11.9 TYPE 2 DIABETES MELLITUS WITHOUT COMPLIC 09/07/2018 DORINDA BOLANOS, KEMI Ot I12.9 HYPERTENSIVE CHRONIC KIDNEY DISEASE W ST 09/07/2018 KEMI SETH MD Ot N18.3 CHRONIC KIDNEY DISEASE, STAGE 3 (MODERAT 09/16/2018 VANDANA RAMOS Ot D47.1 CHRONIC MYELOPROLIFERATIVE DISEASE 09/16/2018 VANDANA RAMOS Ot D50.9 IRON DEFICIENCY ANEMIA, UNSPECIFIED 09/16/2018 VANDANA RAMOS N Ot E04.2 NONTOXIC MULTINODULAR GOITER 09/16/2018 VANDANA RAMOS N Ot 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 09/16/2018 VANDANA RAMOS N Ot E78.5 HYPERLIPIDEMIA, UNSPECIFIED 09/16/2018 VANDANA RAMOS N Ot I12.9 HYPERTENSIVE CHRONIC KIDNEY DISEASE W ST 09/16/2018 VANDANA RAMOS N Ot I25.10 ATH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 09/16/2018 VANDANA RAMOS N Ot M79.7 FIBROMYALGIA 09/16/2018 RACHELVANDANA N Ot N18.3 CHRONIC KIDNEY DISEASE, STAGE 3 (MODERAT 09/16/2018 VANDANA RAMOS N Ot Z48.812 ENCNTR FOR SURGICAL AFTCR FOLLOWING SURG 09/16/2018 VANDANA RAMOS Ot Z79.899 OTHER PENITENTIARY (CURRENT) DRUG THERAPY 09/16/2018 VANDANA RAMOS N Ot Z87.891 PERSONAL HISTORY OF NICOTINE DEPENDENCE 10/05/2018 SIERRA BOLANOS FACC, CHRISTY ADAMSP CCDS Ot C94.6 MYELODYSPLASTIC DISEASE, NOT CLASSIFIED 10/05/2018 SIERRAMICHA BOLANOS FACC, ALI FACP CCDS Ot D50.9 IRON DEFICIENCY ANEMIA, UNSPECIFIED 10/05/2018 SIERRA BOLANOS FACC, ALI FACP CCDS Ot E04.2 NONTOXIC MULTINODULAR GOITER 10/05/2018 SIERRA BOLANOS FACC, ALI FACP CCDS Ot 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 10/05/2018 SIERRA BOLANOS FACC, ALI FACP CCDS Ot E11.40 TYPE 2 DIABETES MELLITUS WITH DIABETIC N 10/05/2018 SIERRA BOLANOS FACC, ALI FACP CCDS Ot E78.5 HYPERLIPIDEMIA, UNSPECIFIED 10/05/2018 SIERRA BOLANOS FACC, ALI FACP CCDS Ot G47.33 OBSTRUCTIVE SLEEP APNEA (ADULT) (PEDIATR 10/05/2018 SIERRA BOLANOS FACC, ALI FACP CCDS Ot I12.9 HYPERTENSIVE CHRONIC KIDNEY DISEASE W ST 10/05/2018 SIERRA BOLANOS FACC, ALI FACP CCDS Ot I25.10 ATH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 10/05/2018 SIERRA BOLANOS FACC, ALI FACP CCDS Ot I73.9 PERIPHERAL VASCULAR DISEASE, UNSPECIFIED 10/05/2018 SIERRA BOLANOS FACC, ALI FACP CCDS Ot J44.9 CHRONIC OBSTRUCTIVE PULMONARY DISEASE, U 10/05/2018 SIERRA BOLANOS FACC, ALI FACP CCDS Ot N18.3 CHRONIC KIDNEY DISEASE, STAGE 3 (MODERAT 10/05/2018 SIERRA BOLANOS FACC, ALI FACP CCDS Ot T82.855A STENOSIS OF CORONARY ARTERY STENT, INITI 10/05/2018 SIERRA BOLANOS FACC, ALI FACP CCDS Ot Z79.02 PENITENTIARY (CURRENT) USE OF ANTITHROMBOTI 10/05/2018 SIERRA BOLANOS FACC, CHRISTY FACP CCDS Ot Z79.82 PENITENTIARY (CURRENT) USE OF ASPIRIN 10/05/2018 SIERRA BOLANOS FACC, ALI FACP CCDS Ot Z79.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 10/05/2018 SIERRA BOLANOS FACC, ALI FACP CCDS Ot Z87.891 PERSONAL HISTORY OF NICOTINE DEPENDENCE 10/05/2018 SIERRA BOLANOS FACC, ALI FACP CCDS Ot C94.6 MYELODYSPLASTIC DISEASE, NOT CLASSIFIED 10/05/2018 SIERRA BOLANOS FACC, ALI FACP CCDS Ot D50.9 IRON DEFICIENCY ANEMIA, UNSPECIFIED 10/05/2018 SIERRA BOLANOS FACC, CHRISTY FACP CCDS Ot E04.2 NONTOXIC MULTINODULAR GOITER 10/05/2018 SIERRA BOLANOS FACC, CHRISTY FACP CCDS Ot 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 10/05/2018 SIERRA BOLANOS FACC, ALI FACP CCDS Ot E11.40 TYPE 2 DIABETES MELLITUS WITH DIABETIC N 10/05/2018 SIERRA BOLANOS FACC, ALI FACP CCDS Ot E78.5 HYPERLIPIDEMIA, UNSPECIFIED 10/05/2018 SIERRA BOLANOS FACC, ALI FACP CCDS Ot G47.33 OBSTRUCTIVE SLEEP APNEA (ADULT) (PEDIATR 10/05/2018 SIERRA BOLANOS FACC, ALI FACP CCDS Ot I12.9 HYPERTENSIVE CHRONIC KIDNEY DISEASE W ST 10/05/2018 SIERRA BOLANOS FACC, CHRISTY FACP CCDS Ot I25.10 ATH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 10/05/2018 SIERRA BOLANOS FACC, ALI FACP CCDS Ot I73.9 PERIPHERAL VASCULAR DISEASE, UNSPECIFIED 10/05/2018 SIERRA BOLANOS FACC, CHRISTY FACP CCDS Ot J44.9 CHRONIC OBSTRUCTIVE PULMONARY DISEASE, U 10/05/2018 SIERRA BOLANOS FACC, ALI FACP CCDS Ot N18.3 CHRONIC KIDNEY DISEASE, STAGE 3 (MODERAT 10/05/2018 SIERRA BOLANOS FACC, CHRISTY FACP CCDS Ot T82.855A STENOSIS OF CORONARY ARTERY STENT, INITI 10/05/2018 SIERRA BOLANOS FACC, ALI FACP CCDS Ot Z79.02 PENITENTIARY (CURRENT) USE OF ANTITHROMBOTI 10/05/2018 SIERRA BOLANOS FACC, CHRISTY FACP CCDS Ot Z79.82 PENITENTIARY (CURRENT) USE OF ASPIRIN 10/05/2018 SIERRA BOLANOS FACC, ALI FACP CCDS Ot Z79.899 OTHER PENITENTIARY (CURRENT) DRUG THERAPY 10/05/2018 SIERRA BOLANOS FACC, ALI FACP CCDS Ot Z87.891 PERSONAL HISTORY OF NICOTINE DEPENDENCE 10/10/2018 SIERRA BOLANOS FACC, ALI FACP CCDS Ot C94.6 MYELODYSPLASTIC DISEASE, NOT CLASSIFIED 10/10/2018 SIERRA BOLANOS FACC, ALI FACP CCDS Ot D50.9 IRON DEFICIENCY ANEMIA, UNSPECIFIED 10/10/2018 SIERRA BOLANOS FACC, ALI FACP CCDS Ot E04.2 NONTOXIC MULTINODULAR GOITER 10/10/2018 SIERRA BOLANOS FACC, CHRISTY FACP CCDS Ot 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 10/10/2018 SIERRA BOLANOS FACC, ALI FACP CCDS Ot E11.40 TYPE 2 DIABETES MELLITUS WITH DIABETIC N 10/10/2018 SIERRA BOLANOS FACC, ALI FACP CCDS Ot E78.5 HYPERLIPIDEMIA, UNSPECIFIED 10/10/2018 SIERRA BOLANOS FACC, ALI FACP CCDS Ot G47.33 OBSTRUCTIVE SLEEP APNEA (ADULT) (PEDIATR 10/10/2018 SIERRA BOLANOS FACC, ALI FACP CCDS Ot I12.9 HYPERTENSIVE CHRONIC KIDNEY DISEASE W ST 10/10/2018 SIERRA BOLANOS FACC, ALI FACP CCDS Ot I25.10 ATH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 10/10/2018 SIERRA BOLANOS FACC, CHRISTY FACP CCDS Ot I73.9 PERIPHERAL VASCULAR DISEASE, UNSPECIFIED 10/10/2018 SIERRA BOLANOS FACC, ALI FACP CCDS Ot J44.9 CHRONIC OBSTRUCTIVE PULMONARY DISEASE, U 10/10/2018 SIERRA BOLANOS FACC, ALI FACP CCDS Ot N18.3 CHRONIC KIDNEY DISEASE, STAGE 3 (MODERAT 10/10/2018 SIERRA BOLANOS FACC, CHRISTY FACP CCDS Ot T82.855A STENOSIS OF CORONARY ARTERY STENT, INITI 10/10/2018 SIERRA BOLANOS FACC, ALI FACP CCDS Ot Z79.02 PENITENTIARY (CURRENT) USE OF ANTITHROMBOTI 10/10/2018 SIERRA BOLANOS FACC, CHRISTY FACP CCDS Ot Z79.82 PENITENTIARY (CURRENT) USE OF ASPIRIN 10/10/2018 SIERRA BOLANOS FACC, ALI FACP CCDS Ot Z79.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 10/10/2018 SIERRA BOLANOS FACC, CHRISTY FACP CCDS Ot Z87.891 PERSONAL HISTORY OF NICOTINE DEPENDENCE 11/04/2018 SIERRA BOLANOS FACC, CHRISTY FACP CCDS Ot I12.9 HYPERTENSIVE CHRONIC KIDNEY DISEASE W ST 11/04/2018 SIERRA BOLANOS FACC, ALI FACP CCDS Ot I25.10 ATH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 11/04/2018 SIERRA BOLANOS FACC, ALI FACP CCDS Ot J43.8 OTHER EMPHYSEMA 11/04/2018 SIERRA BOLANOS FACC, ALI FACP CCDS Ot N18.3 CHRONIC KIDNEY DISEASE, STAGE 3 (MODERAT 11/04/2018 SIERAR BOLANOS FACC, ALI FACP CCDS Ot R06.02 SHORTNESS OF BREATH 11/04/2018 SIERRA BOLANOS FACC, ALI FACP CCDS Ot I12.9 HYPERTENSIVE CHRONIC KIDNEY DISEASE W ST 11/04/2018 SIERRA BOLANOS FACC, ALI FACP CCDS Ot I25.10 ATH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 11/04/2018 SIERRA BOLANOS FACC, ALI FACP CCDS Ot J43.8 OTHER EMPHYSEMA 11/04/2018 SIERRA BOLANOS FACC, ALI FACP CCDS Ot N18.3 CHRONIC KIDNEY DISEASE, STAGE 3 (MODERAT 11/04/2018 SIERRA BOLANOS FACC, ALI FACP CCDS Ot R06.02 SHORTNESS OF BREATH 11/16/2018 VANDANA RAMOS Ot D47.1 CHRONIC MYELOPROLIFERATIVE DISEASE 11/16/2018 VANDANA RAMOS Ot D50.9 IRON DEFICIENCY ANEMIA, UNSPECIFIED 11/16/2018 VANDAAN RAMOS Ot E04.2 NONTOXIC MULTINODULAR GOITER 11/16/2018 VANDANA RAMOS Ot 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 11/16/2018 VANDANA RAMOS Ot E78.5 HYPERLIPIDEMIA, UNSPECIFIED 11/16/2018 VANDANA RAMOS Ot I12.9 HYPERTENSIVE CHRONIC KIDNEY DISEASE W ST 11/16/2018 VANDANA RAMOS N Ot I25.10 ATH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 11/16/2018 VANDANA RAMOS Ot M79.7 FIBROMYALGIA 11/16/2018 VANDANA RAMOS Ot N18.3 CHRONIC KIDNEY DISEASE, STAGE 3 (MODERAT 11/16/2018 VANDANA RAMOS Ot Z48.812 ENCNTR FOR SURGICAL AFTCR FOLLOWING SURG 11/16/2018 VANDANA RAMOS Ot Z79.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 11/16/2018 VANDANA RAMOS Ot Z87.891 PERSONAL HISTORY OF NICOTINE DEPENDENCE 11/17/2018 VANDANA RAMOS Ot D47.1 CHRONIC MYELOPROLIFERATIVE DISEASE 11/17/2018 VANDANA RAMOS Ot D50.9 IRON DEFICIENCY ANEMIA, UNSPECIFIED 11/17/2018 VANDANA RAMOS Ot E04.2 NONTOXIC MULTINODULAR GOITER 11/17/2018 VANDANA RAMOS Jagdeep Ot 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 11/17/2018 VANDANA RAMOS Jagdeep Ot E78.5 HYPERLIPIDEMIA, UNSPECIFIED 11/17/2018 VANDANA RAMOS Jagdeep Ot I12.9 HYPERTENSIVE CHRONIC KIDNEY DISEASE W ST 11/17/2018 VANDANA RAMOS Jagdeep Ot I25.10 ATH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 11/17/2018 VANDANA RAMOS Jagdeep Ot M79.7 FIBROMYALGIA 11/17/2018 VANDANA RAMOS Jagdeep Ot N18.3 CHRONIC KIDNEY DISEASE, STAGE 3 (MODERAT 11/17/2018 VANDANA RAMOS Jagdeep Ot Z48.812 ENCNTR FOR SURGICAL AFTCR FOLLOWING SURG 11/17/2018 VANDANA RAMOS Jagdeep Ot Z79.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 11/17/2018 VANDANA RAMOS Jagdeep Ot Z87.891 PERSONAL HISTORY OF NICOTINE DEPENDENCE 11/24/2018 SIERRA BOLANOS FACC, ALI FACP CCDS Ot I12.9 HYPERTENSIVE CHRONIC KIDNEY DISEASE W ST 11/24/2018 SIERRA BOLANOS FACC, ALI FACP CCDS Ot I25.10 ATH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 11/24/2018 SIERRA BOLANOS FACC, ALI FACP CCDS Ot J43.8 OTHER EMPHYSEMA 11/24/2018 SIERRA BOLANOS FACC, ALI FACP CCDS Ot N18.3 CHRONIC KIDNEY DISEASE, STAGE 3 (MODERAT 11/24/2018 SIERRA BOLANOS FACC, ALI FACP CCDS Ot R06.02 SHORTNESS OF BREATH 01/04/2019 LARA ROBERTS MD, Ot D47.1 CHRONIC MYELOPROLIFERATIVE DISEASE 01/04/2019 LARA ROBERTS MD, Ot D50.9 IRON DEFICIENCY ANEMIA, UNSPECIFIED 01/04/2019 LARA ROBERTS MD Ot E11.40 TYPE 2 DIABETES MELLITUS WITH DIABETIC N 01/04/2019 LARA ROBERTS MD Ot E78.5 HYPERLIPIDEMIA, UNSPECIFIED 01/04/2019 LARA ROBERTS MD Ot G25.81 RESTLESS LEGS SYNDROME 01/04/2019 LARA ROBERTS MD, Ot G47.10 HYPERSOMNIA, UNSPECIFIED 01/04/2019 LARA ROBERTS MD Ot I12.9 HYPERTENSIVE CHRONIC KIDNEY DISEASE W ST 01/04/2019 LARA ROBERTS MD Ot I25.10 ATH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 01/04/2019 LARA ROBERTS MD, Ot I65.23 OCCLUSION AND STENOSIS OF BILATERAL CROUCH 01/04/2019 LARA ROBERTS MD, Ot J30.9 ALLERGIC RHINITIS, UNSPECIFIED 01/04/2019 LARA ROBERTS MD, Ot J44.9 CHRONIC OBSTRUCTIVE PULMONARY DISEASE, U 01/04/2019 LARA ROBERTS MD, Ot M19.91 PRIMARY OSTEOARTHRITIS, UNSPECIFIED SITE 01/04/2019 LARA ROBERTS MD, Ot N18.3 CHRONIC KIDNEY DISEASE, STAGE 3 (MODERAT 01/04/2019 LARA ROBERTS MD, Ot Z79.82 STOCK WORKER (CURRENT) USE OF ASPIRIN 01/04/2019 LARA ROBERTS MD, Ot Z79.84 STOCK WORKER (CURRENT) USE OF ORAL HYPOGLYC 01/04/2019 LARA ROBERTS MD, Ot Z79.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 01/04/2019 LARA ROBERTS MD, Ot Z88.5 ALLERGY STATUS TO NARCOTIC AGENT STATUS 01/05/2019 VANDANA RAMOS Ot D47.1 CHRONIC MYELOPROLIFERATIVE DISEASE 01/05/2019 VANDANA RAMOS Ot D50.9 IRON DEFICIENCY ANEMIA, UNSPECIFIED 01/05/2019 VANDANA RAMOS Ot E04.2 NONTOXIC MULTINODULAR GOITER 01/05/2019 VANDANA RAMOS Ot 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 01/05/2019 VANDANA RAMOS Ot E78.5 HYPERLIPIDEMIA, UNSPECIFIED 01/05/2019 VANDANA RAMOS Ot I12.9 HYPERTENSIVE CHRONIC KIDNEY DISEASE W ST 01/05/2019 VANDANA RAMOS Ot I25.10 ATH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 01/05/2019 VANDANA RAMOS Ot M79.7 FIBROMYALGIA 01/05/2019 VANDANA RAMOS Ot N18.3 CHRONIC KIDNEY DISEASE, STAGE 3 (MODERAT 01/05/2019 VANDANA RAMOS Ot Z48.812 ENCNTR FOR SURGICAL AFTCR FOLLOWING SURG 01/05/2019 VANDANA RAMOS Ot Z79.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 01/05/2019 VANDANA RAMOS Ot Z87.891 PERSONAL HISTORY OF NICOTINE DEPENDENCE 01/09/2019 LARA ROBERTS MD, Ot D47.1 CHRONIC MYELOPROLIFERATIVE DISEASE 01/09/2019 LARA ROBERTS MD, Ot D50.9 IRON DEFICIENCY ANEMIA, UNSPECIFIED 01/09/2019 LARA ROBERTS MD Ot E11.40 TYPE 2 DIABETES MELLITUS WITH DIABETIC N 01/09/2019 LARA ROBERTS MD, Ot E78.5 HYPERLIPIDEMIA, UNSPECIFIED 01/09/2019 LARA ROBERTS MD Ot G25.81 RESTLESS LEGS SYNDROME 01/09/2019 LARA ROBERTS MD Ot G47.10 HYPERSOMNIA, UNSPECIFIED 01/09/2019 LARA ROBERTS MD Ot I12.9 HYPERTENSIVE CHRONIC KIDNEY DISEASE W ST 01/09/2019 LARA ROBERTS MD Ot I25.10 ATH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 01/09/2019 LARA ROBERTS MD Ot I65.23 OCCLUSION AND STENOSIS OF BILATERAL [place]OU[place] 01/09/2019 LARA ROBERTS MD, Ot J30.9 ALLERGIC RHINITIS, UNSPECIFIED 01/09/2019 LARA ROEBRTS MD, Ot J44.9 CHRONIC OBSTRUCTIVE PULMONARY DISEASE, U 01/09/2019 LARA ROBERTS MD Ot M19.91 PRIMARY OSTEOARTHRITIS, UNSPECIFIED SITE 01/09/2019 LARA ROBERTS MD, Ot N18.3 CHRONIC KIDNEY DISEASE, STAGE 3 (MODERAT 01/09/2019 LARA ROBERTS MD, Ot Z79.82 PENITENTIARY (CURRENT) USE OF ASPIRIN 01/09/2019 LARA ROBERTS MD, Ot Z79.84 STOCK WORKER (CURRENT) USE OF ORAL HYPOGLYC 01/09/2019 LARA ROBERTS MD, Ot Z79.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 01/09/2019 LARA ROBERTS MD, Ot Z88.5 ALLERGY STATUS TO NARCOTIC AGENT STATUS 01/18/2019 VANDANA RAMOS Ot D47.1 CHRONIC MYELOPROLIFERATIVE DISEASE 01/18/2019 VANDANA RAMOS Ot D50.9 IRON DEFICIENCY ANEMIA, UNSPECIFIED 01/18/2019 VANDANA RAMOS Ot E04.2 NONTOXIC MULTINODULAR GOITER 01/18/2019 VANDANA RAMOS Ot 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 01/18/2019 VANDANA RAMOS Ot E78.5 HYPERLIPIDEMIA, UNSPECIFIED 01/18/2019 VANDANA RAMOS Ot I12.9 HYPERTENSIVE CHRONIC KIDNEY DISEASE W ST 01/18/2019 VANDANA RAMOS Ot I25.10 ATH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 01/18/2019 VANDANA RAMOS Ot M79.7 FIBROMYALGIA 01/18/2019 RACHELVANDANA GRAJEDA N Ot N18.3 CHRONIC KIDNEY DISEASE, STAGE 3 (MODERAT 01/18/2019 RACHELVANDANA GRAJEDA N Ot Z48.812 ENCNTR FOR SURGICAL AFTCR FOLLOWING SURG 01/18/2019 VANDANA RAMOS N Ot Z79.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 01/18/2019 VANDANA RAMOS N Ot Z87.891 PERSONAL HISTORY OF NICOTINE DEPENDENCE 01/24/2019 RACHELVANDANA N Ot D47.1 CHRONIC MYELOPROLIFERATIVE DISEASE 01/24/2019 RACHEL BOBAN N Ot D50.9 IRON DEFICIENCY ANEMIA, UNSPECIFIED 01/24/2019 RACHELVANDANA N Ot E04.2 NONTOXIC MULTINODULAR GOITER 01/24/2019 RACHEL BOBAN N Ot 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 01/24/2019 RACHELVANDANA N Ot E78.5 HYPERLIPIDEMIA, UNSPECIFIED 01/24/2019 RACHELVANDANA N Ot I12.9 HYPERTENSIVE CHRONIC KIDNEY DISEASE W ST 01/24/2019 VANDANA RAMOS N Ot I25.10 ATH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 01/24/2019 VANDANA RAMOS N Ot M79.7 FIBROMYALGIA 01/24/2019 VANDANA RAMOS N Ot N18.3 CHRONIC KIDNEY DISEASE, STAGE 3 (MODERAT 01/24/2019 VANDANA RAMOS N Ot Z48.812 ENCNTR FOR SURGICAL AFTCR FOLLOWING SURG 01/24/2019 VANDANA RAMOS N Ot Z79.899 OTHER PENITENTIARY (CURRENT) DRUG THERAPY 01/24/2019 VANDANA RAMOS N Ot Z87.891 PERSONAL HISTORY OF NICOTINE DEPENDENCE 03/22/2019 RACHELVANDANA N Ot D47.1 CHRONIC MYELOPROLIFERATIVE DISEASE 03/22/2019 RACHELVANDANA N Ot D50.9 IRON DEFICIENCY ANEMIA, UNSPECIFIED 03/22/2019 RACHELVANDANA N Ot E04.2 NONTOXIC MULTINODULAR GOITER 03/22/2019 RACHELEDAAN N Ot 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 03/22/2019 RACHELVANDANA N Ot E78.5 HYPERLIPIDEMIA, UNSPECIFIED 03/22/2019 RACHEL BOBAN N Ot I12.9 HYPERTENSIVE CHRONIC KIDNEY DISEASE W ST 03/22/2019 VANDANA RAMOS N Ot I25.10 ATH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 03/22/2019 RACHELVANDANA GRAJEDA N Ot M79.7 FIBROMYALGIA 03/22/2019 VANDANA RAMOS N Ot N18.3 CHRONIC KIDNEY DISEASE, STAGE 3 (MODERAT 03/22/2019 VANDANA RAMOS N Ot Z48.812 ENCNTR FOR SURGICAL AFTCR FOLLOWING SURG 03/22/2019 VANDANA RAMOS N Ot Z79.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 03/22/2019 VANDANA RAMOS N Ot Z87.891 PERSONAL HISTORY OF NICOTINE DEPENDENCE 03/23/2019 RACHEL EDAANNALISA N Ot D47.1 CHRONIC MYELOPROLIFERATIVE DISEASE 03/23/2019 RACHEL EDAANNALISA N Ot D50.9 IRON DEFICIENCY ANEMIA, UNSPECIFIED 03/23/2019 VANDANA RAMOS N Ot E04.2 NONTOXIC MULTINODULAR GOITER 03/23/2019 RACHELVANDANA N Ot 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 03/23/2019 RACHEL EDAANNALISA N Ot E78.5 HYPERLIPIDEMIA, UNSPECIFIED 03/23/2019 RACHELVANDANA GRAJEDA N Ot I12.9 HYPERTENSIVE CHRONIC KIDNEY DISEASE W ST 03/23/2019 VANDANA RAMOS N Ot I25.10 ATH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 03/23/2019 VANDANA RAMOS N Ot M79.7 FIBROMYALGIA 03/23/2019 VANDANA RAMOS N Ot N18.3 CHRONIC KIDNEY DISEASE, STAGE 3 (MODERAT 03/23/2019 VANDANA RAMOS N Ot Z48.812 ENCNTR FOR SURGICAL AFTCR FOLLOWING SURG 03/23/2019 VANDANA RAMOS N Ot Z79.899 OTHER PENITENTIARY (CURRENT) DRUG THERAPY 03/23/2019 RACHEL VANDANA N Ot Z87.891 PERSONAL HISTORY OF NICOTINE DEPENDENCE 03/24/2019 PEDRO LUIS BOLANOS, ALISON [place] Ot E11. 22 TYPE 2 DIABETES MELLITUS W DIABETIC DEEP FAT FRY COOK 03/24/2019 ALISON CLUOD MD Ot E11. 65 TYPE 2 DIABETES MELLITUS WITH HYPERGLYCE 03/24/2019 ALISON CLOUD MD Ot E78. 00 PURE HYPERCHOLESTEROLEMIA, UNSPECIFIED 03/24/2019 ALISON CLOUD MD Ot I12. 9 HYPERTENSIVE CHRONIC KIDNEY DISEASE W ST 03/24/2019 ALISON CLOUD MD Ot I25. 10 ATH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 03/24/2019 ALISON CLOUD MD Ot K21. 9 GASTRO-ESOPHAGEAL REFLUX DISEASE WITHOUT 03/24/2019 ALISON CLOUD MD Ot M79. 7 FIBROMYALGIA 03/24/2019 ALISON CLOUD MD Ot N18. 9 CHRONIC KIDNEY DISEASE, UNSPECIFIED 03/24/2019 ALISON CLOUD MD Ot R73. 9 HYPERGLYCEMIA, UNSPECIFIED 03/24/2019 ALISON CLOUD MD Ot Z79. 02 STOCK WORKER (CURRENT) USE OF ANTITHROMBOTI 03/24/2019 ALISON CLOUD MD Ot Z79. 82 PENITENTIARY (CURRENT) USE OF ASPIRIN 03/24/2019 ALISON CLOUD MD Ot Z87.891 PERSONAL HISTORY OF NICOTINE DEPENDENCE 03/24/2019 ALISON CLOUD MD Ot Z88. 1 ALLERGY STATUS TO OTHER ANTIBIOTIC AGENT 03/24/2019 ALISON CLOUD MD Ot Z88. 5 ALLERGY STATUS TO NARCOTIC AGENT STATUS 03/24/2019 ALISON CLOUD MD Ot Z88. 6 ALLERGY STATUS TO ANALGESIC AGENT STATUS 03/24/2019 ALISON CLOUD MD Ot Z88. 8 ALLERGY STATUS TO OTH DRUG/MEDS/BIOL SUB 03/24/2019 ALISON CLOUD MD Ot Z90.710 ACQUIRED ABSENCE OF BOTH CERVIX AND UTER 03/24/2019 ALISON CLOUD MD Ot Z90. 89 ACQUIRED ABSENCE OF OTHER ORGANS 03/24/2019 ALISON CLOUD MD Ot Z95. 5 PRESENCE OF CORONARY ANGIOPLASTY IMPLANT 03/27/2019 PEDRO LUIS BOLANOS, ALISON [place] Ot E11. 22 TYPE 2 DIABETES MELLITUS W DIABETIC DEEP FAT FRY COOK 03/27/2019 ALISON CLOUD MD Ot E11. 65 TYPE 2 DIABETES MELLITUS WITH HYPERGLYCE 03/27/2019 ALISON CLOUD MD Ot E78. 00 PURE HYPERCHOLESTEROLEMIA, UNSPECIFIED 03/27/2019 ALISON CLOUD MD Ot I12. 9 HYPERTENSIVE CHRONIC KIDNEY DISEASE W ST 03/27/2019 ALISON CLOUD MD Ot I25. 10 ATH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 03/27/2019 ALISON CLOUD MD Ot K21. 9 GASTRO-ESOPHAGEAL REFLUX DISEASE WITHOUT 03/27/2019 PEDRO LUIS BOLANOS, ALISON [place] Ot M79. 7 FIBROMYALGIA 03/27/2019 ALSION CLOUD MD Ot N18. 9 CHRONIC KIDNEY DISEASE, UNSPECIFIED 03/27/2019 ALISON CLOUD MD Ot R73. 9 HYPERGLYCEMIA, UNSPECIFIED 03/27/2019 PEDRO LUIS BOLANOS ALISON [place] Ot Z79. 02 PENITENTIARY (CURRENT) USE OF ANTITHROMBOTI 03/27/2019 ALISON CLOUD MD Ot Z79. 82 STOCK WORKER (CURRENT) USE OF ASPIRIN 03/27/2019 PEDRO LUIS BOLANOS, ALISON [place] Ot Z87.891 PERSONAL HISTORY OF NICOTINE DEPENDENCE 03/27/2019 ALISON CLOUD MD Ot Z88. 1 ALLERGY STATUS TO OTHER ANTIBIOTIC AGENT 03/27/2019 ALISON CLOUD MD Ot Z88. 5 ALLERGY STATUS TO NARCOTIC AGENT STATUS 03/27/2019 ALISON CLOUD MD Ot Z88. 6 ALLERGY STATUS TO ANALGESIC AGENT STATUS 03/27/2019 ALISON CLOUD MD Ot Z88. 8 ALLERGY STATUS TO OTH DRUG/MEDS/BIOL SUB 03/27/2019 ALISON CLOUD MD Ot Z90.710 ACQUIRED ABSENCE OF BOTH CERVIX AND UTER 03/27/2019 ALISON CLOUD MD Ot Z90. 89 ACQUIRED ABSENCE OF OTHER ORGANS 03/27/2019 PEDRO LUIS BOLANOS ALISON [place] Ot Z95. 5 PRESENCE OF CORONARY ANGIOPLASTY IMPLANT 06/19/2019 CLAUDIA MORAN Ot 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 06/19/2019 CLAUDIA MORAN Ot E78.00 PURE HYPERCHOLESTEROLEMIA, UNSPECIFIED 06/19/2019 CLAUDIA MORAN Ot I12.9 HYPERTENSIVE CHRONIC KIDNEY DISEASE W ST 06/19/2019 CLAUDIA MORAN Ot I25.10 ATH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 06/19/2019 CLAUDIA MORAN Ot J44.9 CHRONIC OBSTRUCTIVE PULMONARY DISEASE, U 06/19/2019 CLAUDIA MORAN Ot K21.9 GASTRO-ESOPHAGEAL REFLUX DISEASE WITHOUT 06/19/2019 CLAUDIA MORAN Ot M62.838 OTHER MUSCLE SPASM 06/19/2019 CLAUDIA MORAN Ot M79.7 FIBROMYALGIA 06/19/2019 CLAUDIA MORAN Ot N18.9 CHRONIC KIDNEY DISEASE, UNSPECIFIED 06/19/2019 CLAUDIA MORAN Ot N39.0 URINARY TRACT INFECTION, SITE NOT SPECIF 06/19/2019 CLAUDIA MORAN Ot R10.9 UNSPECIFIED ABDOMINAL PAIN 06/19/2019 CLAUDIA MORAN Ot R19.7 DIARRHEA, UNSPECIFIED 06/19/2019 CLAUDIA MORAN Ot Z79.02 STOCK WORKER (CURRENT) USE OF ANTITHROMBOTI 06/19/2019 CLAUDIA MORAN Ot Z79.82 PENITENTIARY (CURRENT) USE OF ASPIRIN 06/19/2019 CLAUDIA MORAN Ot Z87.891 PERSONAL HISTORY OF NICOTINE DEPENDENCE 06/19/2019 CLAUDIA MORAN Ot Z88.1 ALLERGY STATUS TO OTHER ANTIBIOTIC AGENT 06/19/2019 CLAUDIA MORAN Ot Z88.5 ALLERGY STATUS TO NARCOTIC AGENT STATUS 06/19/2019 CLAUDIA MORAN Ot Z88.6 ALLERGY STATUS TO ANALGESIC AGENT STATUS 06/19/2019 CLAUDIA MORAN Ot Z88.8 ALLERGY STATUS TO OTH DRUG/MEDS/BIOL SUB 06/19/2019 CLAUDIA MORAN Ot Z90.710 ACQUIRED ABSENCE OF BOTH CERVIX AND UTER 06/19/2019 CLAUDIA MORAN Ot Z90.89 ACQUIRED ABSENCE OF OTHER ORGANS 06/19/2019 CLAUDIA MORAN Ot Z95.5 PRESENCE OF CORONARY ANGIOPLASTY IMPLANT Procedures Code Description Performed By Per formed On 80.99 EXCI ANASTASIA OF JOINT NEC 09/19/2012 81.02 OTH CERVICAL FUSION OF ANTERIOR COLUMN, 09/19/2012 81.62 FUSI ON/REFUS OF 2-3 VERTEBRAE 09/19/2012 84.51 INSE RTION OF INTERBODY SPINAL FUSION DEV 09/19/2012 83.02 MYOTOMY 09/28/2012 Results Test Result Range METABOLIC PANEL, BASIC - 09/03/15 11:40 POTASSIUM 3.8 mmol/L 3.5-5.3 EST GFR (MDRD) 40 mL/min > 59 ANION GAP 13 mmol/L 5-15 GLUCOSE 158 mg/dL 70-99 CALCIUM 10.1 mg/dL 8.5-10.1 BLOOD UREA NITROGEN 20 mg/dL 7-20 CREATININE 1.3 mg/dL 0.6-1.0 SODIUM 140 mmol/L 135-148 CHLORIDE 103 mmol/L 98-110 CARBON DIOXIDE 24 mmol/L - CBC W/DIFF - 03/09/16 08:57 BASOPHIL # 0.1 k/cumm 0.0-0.2 BASOPHIL % 1 % 0-1 EOSINOPHIL # 0.3 k/cumm 0.1-0.5 EOSINOPHIL % 2 % 2-4 GRANULOCYTE # 10.8 k/cumm 2.0-9.0 GRANULOCYTE % 72 % 50-75 LYMPHOCYTE # 2.6 k/cumm 1.0-4.0 LYMPHOCYTE % 17 % 20-30 MEAN CELL HGB 29.7 pg 27.0-33.0 MEAN CELL HGB CONCENTRATION 32.4 g/dL 32 .0-37.0 MEAN CELL VOLUME 91.6 fl 80.0-100.0 MONOCYTE # 1.1 k/cumm 0.1-1.0 MONOCYTE % 8 % 4-6 RED BLOOD CELL 4.07 m/cumm 4.00-6.00 RED CELL DISTRIBUTION WIDTH 16.2 % 11 .0-15.6 WHITE BLOOD CELL 15.0 k/cumm 5.0-10.0 HEMOGLOBIN 12.1 gm/dL 12.0-16.0 HEMATOCRIT 37.3 % 37.0-47.0 PLATELET COUNT 430 k/cumm 150-450 METABOLIC PANEL, BASIC - 03/09/16 08:57 POTASSIUM 3.8 mmol/L 3.5-5.3 EST GFR (MDRD) 37 mL/min > 59 ANION GAP 10 mmol/L 5-15 EST CrCl (CG) 34 mL/min > 59 GLUCOSE 157 mg/dL 70-99 CALCIUM 10.4 mg/dL 8.5-10.1 BLOOD UREA NITROGEN 16 mg/dL 7-20 CREATININE 1.4 mg/dL 0.6-1.0 SODIUM 140 mmol/L 135-148 CHLORIDE 103 mmol/L 98-110 CARBON DIOXIDE 27 mmol/L -32 LIPID PANEL - 03/09/16 08:57 CHOLESTEROL/HDL RATIO 5.8 < 5.0 COMMENT LDL CHOLESTEROL TEST NOT PERFORMED mg/dL < 100 TRIGLYCERIDES 447 mg/dL < 150 CHOLESTEROL 202 mg/dL < 200 HDL CHOLESTEROL 35 mg/dL > 39 PROTHROMBIN TIME WITH INR - 03/09/16 08: 57 INTERNATIONAL NORMAL RATIO 1.0 0.9 -1.1 PROTHROMBIN TIME 11.3 sec 10.0-12.9 GLUCOSE (POC) - 03/09/16 20:43 GLUCOSE (POC) 213 mg/dL 70-99 GLUCOSE (POC) - 03/10/16 05:53 GLUCOSE (POC) 178 mg/dL 70-99 METABOLIC PANEL, BASIC - 03/10/16 05:54 POTASSIUM 3.5 mmol/L 3.5-5.3 EST GFR (MDRD) 34 mL/min > 59 ANION GAP 10 mmol/L 5-15 EST CrCl (CG) 32 mL/min > 59 GLUCOSE 172 mg/dL 70-99 CALCIUM 9.9 mg/dL 8.5-10.1 BLOOD UREA NITROGEN 18 mg/dL 7-20 CREATININE 1.5 mg/dL 0.6-1.0 SODIUM 140 mmol/L 135-148 CHLORIDE 103 mmol/L 98-110 CARBON DIOXIDE 27 mmol/L 21-32 Serum or plasma phosphate measurement (m ass/volume) - 08/25/17 13:03 Serum or plasma phosphate measurement (mass/volume) 2.2 mg/dL 2.3-4.7 Complete blood count (CBC) with automate d white blood cell (WBC) differential - 09/01/17 16:15 Blood leukocytes automated count (number/volume) 15.7 10*3/uL 4.3-11.0 Blood erythrocytes automated count (number/volume) 3.63 10*6/uL 4.35-5.85 Venous blood hemoglobin measurement (mass/volume) 12.1 g/dL 11.5-16.0 Blood hematocrit (volume fraction) 36 % 35-52 Automated erythrocyte mean corpuscular volume 99 [ foz_us] 80-99 Automated erythrocyte mean corpuscular h emoglobin (mass per erythrocyte) 33 pg 25-34 Automated erythrocyte mean corpuscular h emoglobin concentration measurement (mass/volume) 34 g/dL 32-36 Automated erythrocyte distribution width ratio 16. 0 % 10.0- 14.5 Automated blood platelet count (count/volume) 498 10*3/uL 130-400 Automated blood platelet mean volume measurement 9.9 [foz_us] 7.4-10.4 Automated blood neutrophils/100 leukocytes 77 % 42-75 Automated blood lymphocytes/100 leukocytes 13 % 12-44 Blood monocytes/100 leukocytes 7 % 0-12 Automated blood eosinophils/100 leukocytes 3 % 0-10 Automated blood basophils/100 leukocytes 1 % 0-10 Blood neutrophils automated count (number/volume) 12.1 10*3 1.8-7.8 Blood lymphocytes automated count (number/volume) 2.0 10*3 1.0-4.0 Blood monocytes automated count (number/volume) 1. 1 10*3 0.0-1.0 Automated eosinophil count 0.5 10*3/uL 0 .0-0.3 Automated blood basophil count (count/volume) 0.1 10*3/uL 0.0-0.1 Whole blood basic metabolic panel - 01/12 16:15 Serum or plasma sodium measurement (moles/volume) 138 mmol/L 135-145 Serum or plasma potassium measurement (moles/volume) 4.1 mmol/L 3.6-5.0 Serum or plasma chloride measurement (moles/volume) 106 mmol/L 98-107 Carbon dioxide 22 mmol/L 21-32 Serum or plasma anion gap determination (moles/volume) 10 mmol/L 5-14 Serum or plasma urea nitrogen measurement (mass/volume ) 28 mg/dL 7-18 Serum or plasma creatinine measurement (mass/volume) 1.55 mg/dL 0.60-1.30 Serum or plasma urea nitrogen/creatinine mass ratio 18 NRG Serum or plasma creatinine measurement w ith calculation of estimated glomerular filtration rate 33 NRG Serum or plasma glucose measurement (mass/volume) 134 mg/dL 70-105 Serum or plasma calcium measurement (mass/volume) 10.4 mg/dL 8.5-10.1 Blood manual differential performed dete ction - 09/01/17 16:15 Blood monocytes/100 leukocytes 2 % NRG Manual blood segmented neutrophils/100 leukocytes 82 % NRG Blood band neutrophils/100 leukocytes 0 % NRG Manual blood lymphocytes/100 leukocytes 11 % NRG Manual eosinophils/100 leukocytes in nose 5 % NRG Manual blood basophils/100 leukocytes 0 % NRG Blood anisocytosis detection by light microscopy S LIGHT NRG Blood macrocytes detection by light microscopy SLI GHT NRG Serum or plasma renal function panel (Na , K, Cl, CO2, BUN, Cr, glucose,Ca, phos, alb) - 08/18/18 08:29 Serum or plasma sodium measurement (moles/volume) 139 mmol/L 135-145 Serum or plasma potassium measurement (moles/volume) 4.3 mmol/L 3.6-5.0 Serum or plasma chloride measurement (moles/volume) 108 mmol/L 98-107 Carbon dioxide 20 mmol/L 21-32 Serum or plasma anion gap determination (moles/volume) 11 mmol/L 5-14 Serum or plasma urea nitrogen measurement (mass/volume ) 27 mg/dL 7-18 Serum or plasma creatinine measurement (mass/volume) 1.80 mg/dL 0.60-1.30 Serum or plasma urea nitrogen/creatinine mass ratio 15 NRG Serum or plasma creatinine measurement w ith calculation of estimated glomerular filtration rate 28 NRG Serum or plasma glucose measurement (mass/volume) 191 mg/dL 70-105 Serum or plasma calcium measurement (mass/volume) 11.0 mg/dL 8.5-10.1 Serum or plasma albumin measurement (mass/volume) 4.4 g/dL 3.2-4.5 Serum or plasma phosphate measurement (mass/volume) 3.2 mg/dL 2.3-4.7 Hemoglobin A1c - 08/18/18 08:29 Blood hemoglobin A1C measurement (mass/volume) 7.3 % 4.0-5.6 MEAN BLOOD GLUCOSE 163 % <=126 Automated blood complete blood count (he mogram) panel - 10/04/18 07:24 Blood leukocytes automated count (number/volume) 10.4 10*3/uL 4.3-11.0 Blood erythrocytes automated count (number/volume) 4.01 10*6/uL 4.35-5.85 Venous blood hemoglobin measurement (mass/volume) 13.3 g/dL 11.5-16.0 Blood hematocrit (volume fraction) 40 % 35-52 Automated erythrocyte mean corpuscular volume 100 [foz_us] 80-99 Automated erythrocyte mean corpuscular h emoglobin (mass per erythrocyte) 33 pg 25-34 Automated erythrocyte mean corpuscular h emoglobin concentration measurement (mass/volume) 33 g/dL 32-36 Automated erythrocyte distribution width ratio 14. 5 % 10.0- 14.5 Automated blood platelet count (count/volume) 371 10*3/uL 130-400 Automated blood platelet mean volume measurement 10.0 [foz_us] 7.4-10.4 PT panel in platelet poor plasma by coag ulation assay - 10/04/18 07:24 Prothrombin time (PT) in platelet poor plasma by coagu lation assay 12.6 s 12.2-14.7 INR in platelet poor plasma or blood by coagulation as say 0.9 0.8-1.4 Activated partial thromboplastin time (a PTT) in platelet poor plasma bycoagulation assay - 10/04/18 07:24 Activated partial thromboplastin time (a PTT) in platelet poor plasma bycoagulation assay 31 s 24-35 Comprehensive metabolic panel - 10/04/18 07:24 Serum or plasma sodium measurement (moles/volume) 139 mmol/L 135-145 Serum or plasma potassium measurement (moles/volume) 4.5 mmol/L 3.6-5.0 Serum or plasma chloride measurement (moles/volume) 107 mmol/L 98-107 Carbon dioxide 23 mmol/L 21-32 Serum or plasma anion gap determination (moles/volume) 9 mmol/L 5-14 Serum or plasma urea nitrogen measurement (mass/volume ) 32 mg/dL 7-18 Serum or plasma creatinine measurement (mass/volume) 1.74 mg/dL 0.60-1.30 Serum or plasma urea nitrogen/creatinine mass ratio 18 NRG Serum or plasma creatinine measurement w ith calculation of estimated glomerular filtration rate 29 NRG Serum or plasma glucose measurement (mass/volume) 160 mg/dL 70-105 Serum or plasma calcium measurement (mass/volume) 10.9 mg/dL 8.5-10.1 Serum or plasma total bilirubin measurement (mass/volu me) 0.4 mg/dL 0.1-1.0 Serum or plasma alkaline phosphatase krystyna surement (enzymatic activity/volume) 82 U/L 40-136 Serum or plasma aspartate aminotransfera se measurement (enzymatic activity/volume) 21 U/L 5-34 Serum or plasma alanine aminotransferase measurement (enzymatic activity/volume) 19 U/L 0-55 Serum or plasma protein measurement (mass/volume) 7.1 g/dL 6.4-8.2 Serum or plasma albumin measurement (mass/volume) 4.5 g/dL 3.2-4.5 CALCIUM CORRECTED 10.5 mg/dL 8.5-10.1 Lipid 1996 panel - 10/04/18 07:24 Serum or plasma triglyceride measurement (mass/volume) 259 mg/dL <150 Serum or plasma cholesterol measurement (mass/volume) 170 mg/dL < 200 Serum or plasma cholesterol in HDL measurement (mass/v olume) 28 mg/dL 40-60 Cholesterol in LDL [mass/volume] in serum or plasma by direct assay 99 mg/dL 1-129 Serum or plasma cholesterol in VLDL measurement (mass/ volume) 52 mg/dL 5-40 Methicillin resistant Staphylococcus aur eus (MRSA) screening culture - 10/04/18 07:24 Methicillin resistant Staphylococcus aureus (MRSA) scr eening culture NEG NRG Automated blood complete blood count (he mogram) panel - 10/05/18 03:20 Blood leukocytes automated count (number/volume) 9.4 10*3/uL 4.3-11.0 Blood erythrocytes automated count (number/volume) 3.72 10*6/uL 4.35-5.85 Venous blood hemoglobin measurement (mass/volume) 12.1 g/dL 11.5-16.0 Blood hematocrit (volume fraction) 37 % 35-52 Automated erythrocyte mean corpuscular volume 100 [foz_us] 80-99 Automated erythrocyte mean corpuscular h emoglobin (mass per erythrocyte) 33 pg 25-34 Automated erythrocyte mean corpuscular h emoglobin concentration measurement (mass/volume) 33 g/dL 32-36 Automated erythrocyte distribution width ratio 14. 4 % 10.0- 14.5 Automated blood platelet count (count/volume) 348 10*3/uL 130-400 Automated blood platelet mean volume measurement 10.3 [foz_us] 7.4-10.4 Whole blood basic metabolic panel - 09/26 03:20 Serum or plasma sodium measurement (moles/volume) 140 mmol/L 135-145 Serum or plasma potassium measurement (moles/volume) 3.9 mmol/L 3.6-5.0 Serum or plasma chloride measurement (moles/volume) 110 mmol/L 98-107 Carbon dioxide 21 mmol/L 21-32 Serum or plasma anion gap determination (moles/volume) 9 mmol/L 5-14 Serum or plasma urea nitrogen measurement (mass/volume ) 23 mg/dL 7-18 Serum or plasma creatinine measurement (mass/volume) 1.39 mg/dL 0.60-1.30 Serum or plasma urea nitrogen/creatinine mass ratio 17 NRG Serum or plasma creatinine measurement w ith calculation of estimated glomerular filtration rate 37 NRG Serum or plasma glucose measurement (mass/volume) 140 mg/dL 70-105 Serum or plasma calcium measurement (mass/volume) 10.2 mg/dL 8.5-10.1 Complete blood count (CBC) with automate d white blood cell (WBC) differential - 11/03/18 15:20 Blood leukocytes automated count (number/volume) 10.8 10*3/uL 4.3-11.0 Blood erythrocytes automated count (number/volume) 3.79 10*6/uL 4.35-5.85 Venous blood hemoglobin measurement (mass/volume) 11.9 g/dL 11.5-16.0 Blood hematocrit (volume fraction) 37 % 35-52 Automated erythrocyte mean corpuscular volume 98 [ foz_us] 80-99 Automated erythrocyte mean corpuscular h emoglobin (mass per erythrocyte) 31 pg 25-34 Automated erythrocyte mean corpuscular h emoglobin concentration measurement (mass/volume) 32 g/dL 32-36 Automated erythrocyte distribution width ratio 13. 9 % 10.0- 14.5 Automated blood platelet count (count/volume) 435 10*3/uL 130-400 Automated blood platelet mean volume measurement 9.9 [foz_us] 7.4-10.4 Automated blood neutrophils/100 leukocytes 76 % 42-75 Automated blood lymphocytes/100 leukocytes 14 % 12-44 Blood monocytes/100 leukocytes 7 % 0-12 Automated blood eosinophils/100 leukocytes 3 % 0-10 Automated blood basophils/100 leukocytes 1 % 0-10 Blood neutrophils automated count (number/volume) 8.1 10*3 1.8-7.8 Blood lymphocytes automated count (number/volume) 1.5 10*3 1.0-4.0 Blood monocytes automated count (number/volume) 0. 7 10*3 0.0-1.0 Automated eosinophil count 0.3 10*3/uL 0 .0-0.3 Automated blood basophil count (count/volume) 0.1 10*3/uL 0.0-0.1 Comprehensive metabolic panel - 11/03/18 15:20 Serum or plasma sodium measurement (moles/volume) 137 mmol/L 135-145 Serum or plasma potassium measurement (moles/volume) 3.8 mmol/L 3.6-5.0 Serum or plasma chloride measurement (moles/volume) 103 mmol/L 98-107 Carbon dioxide 25 mmol/L 21-32 Serum or plasma anion gap determination (moles/volume) 9 mmol/L 5-14 Serum or plasma urea nitrogen measurement (mass/volume ) 29 mg/dL 7-18 Serum or plasma creatinine measurement (mass/volume) 1.63 mg/dL 0.60-1.30 Serum or plasma urea nitrogen/creatinine mass ratio 18 NRG Serum or plasma creatinine measurement w ith calculation of estimated glomerular filtration rate 31 NRG Serum or plasma glucose measurement (mass/volume) 142 mg/dL 70-105 Serum or plasma calcium measurement (mass/volume) 10.1 mg/dL 8.5-10.1 Serum or plasma total bilirubin measurement (mass/volu me) 0.4 mg/dL 0.1-1.0 Serum or plasma alkaline phosphatase krystyna surement (enzymatic activity/volume) 81 U/L 40-136 Serum or plasma aspartate aminotransfera se measurement (enzymatic activity/volume) 14 U/L 5-34 Serum or plasma alanine aminotransferase measurement (enzymatic activity/volume) 15 U/L 0-55 Serum or plasma protein measurement (mass/volume) 6.9 g/dL 6.4-8.2 Serum or plasma albumin measurement (mass/volume) 4.2 g/dL 3.2-4.5 CALCIUM CORRECTED 9.9 mg/dL 8.5-10.1 Magnesium - 11/03/18 15:20 Magnesium 1.8 mg/dL 1.8-2.4 Blood CBC with ordered manual differenti al panel - 01/04/19 07:28 Blood leukocytes automated count (number/volume) 12.3 10*3/uL 4.3-11.0 Blood erythrocytes automated count (number/volume) 3.95 10*6/uL 4.35-5.85 Venous blood hemoglobin measurement (mass/volume) 12.4 g/dL 11.5-16.0 Blood hematocrit (volume fraction) 38 % 35-52 Automated erythrocyte mean corpuscular volume 96 [ foz_us] 80-99 Automated erythrocyte mean corpuscular h emoglobin (mass per erythrocyte) 31 pg 25-34 Automated erythrocyte mean corpuscular h emoglobin concentration measurement (mass/volume) 33 g/dL 32-36 Automated erythrocyte distribution width ratio 14. 9 % 10.0- 14.5 Automated blood platelet count (count/volume) 427 10*3/uL 130-400 Automated blood platelet mean volume measurement 10.2 [foz_us] 7.4-10.4 Automated blood neutrophils/100 leukocytes 78 % 42-75 Automated blood lymphocytes/100 leukocytes 12 % 12-44 Blood monocytes/100 leukocytes 2 % NRG Automated blood eosinophils/100 leukocytes 3 % 0-10 Automated blood basophils/100 leukocytes 1 % 0-10 Blood neutrophils automated count (number/volume) 9.6 10*3 1.8-7.8 Blood lymphocytes automated count (number/volume) 1.5 10*3 1.0-4.0 Blood monocytes automated count (number/volume) 0. 8 10*3 0.0-1.0 Automated eosinophil count 0.4 10*3/uL 0 .0-0.3 Automated blood basophil count (count/volume) 0.1 10*3/uL 0.0-0.1 Manual blood segmented neutrophils/100 leukocytes 71 % NRG Manual blood lymphocytes/100 leukocytes 17 % NRG Manual eosinophils/100 leukocytes in nose 5 % NRG Blood lymphocytes variant/100 leukocytes 5 % NRG Blood erythrocyte morphology finding identification NORMAL NRG Automated reticulocyte percentage - 12/26 07:28 Blood reticulocytes count (number/volume) 111 10*9 /L 24-90 Blood reticulocytes/100 erythrocytes 2.80 % 0.50-2.40 PT panel in platelet poor plasma by coag ulation assay - 01/04/19 07:28 Prothrombin time (PT) in platelet poor plasma by coagu lation assay 12.6 s 12.2-14.7 INR in platelet poor plasma or blood by coagulation as say 0.9 0.8-1.4 Activated partial thromboplastin time (a PTT) in platelet poor plasma bycoagulation assay - 01/04/19 07:28 Activated partial thromboplastin time (a PTT) in platelet poor plasma bycoagulation assay 30 s 24-35 Capillary blood glucose measurement by g lucometer (mass/volume) - 01/04/19 07:42 Capillary blood glucose measurement by glucometer (mas s/volume) 262 mg/dL 70-110 Comprehensive metabolic panel - 03/24/19 15:30 Serum or plasma sodium measurement (moles/volume) 135 mmol/L 135-145 Serum or plasma potassium measurement (moles/volume) 4.8 mmol/L 3.6-5.0 Serum or plasma chloride measurement (moles/volume) 104 mmol/L 98-107 Carbon dioxide 22 mmol/L 21-32 Serum or plasma anion gap determination (moles/volume) 9 mmol/L 5-14 Serum or plasma urea nitrogen measurement (mass/volume ) 40 mg/dL 7-18 Serum or plasma creatinine measurement (mass/volume) 1.91 mg/dL 0.60-1.30 Serum or plasma urea nitrogen/creatinine mass ratio 21 NRG Serum or plasma creatinine measurement w ith calculation of estimated glomerular filtration rate 26 NRG Serum or plasma glucose measurement (mass/volume) 250 mg/dL 70-105 Serum or plasma calcium measurement (mass/volume) 10.4 mg/dL 8.5-10.1 Serum or plasma total bilirubin measurement (mass/volu me) 0.4 mg/dL 0.1-1.0 Serum or plasma alkaline phosphatase krystyna surement (enzymatic activity/volume) 93 U/L 40-136 Serum or plasma aspartate aminotransfera se measurement (enzymatic activity/volume) 23 U/L 5-34 Serum or plasma alanine aminotransferase measurement (enzymatic activity/volume) 25 U/L 0-55 Serum or plasma protein measurement (mass/volume) 7.1 g/dL 6.4-8.2 Serum or plasma albumin measurement (mass/volume) 4.5 g/dL 3.2-4.5 CALCIUM CORRECTED 10.0 mg/dL 8.5-10.1 Hemoglobin A1c measurement - 03/24/19 15 :30 Blood hemoglobin A1C measurement (mass/volume) 8.9 % 4.0-5.6 MEAN BLOOD GLUCOSE 209 % <=126 Capillary blood glucose measurement by g lucometer (mass/volume) - 03/24/19 15:42 Capillary blood glucose measurement by glucometer (mas s/volume) 246 mg/dL 70-110 Automated blood complete blood count (he mogram) panel - 05/27/19 15:05 Blood leukocytes automated count (number/volume) 11.9 10*3/uL 4.3-11.0 Blood erythrocytes automated count (number/volume) 3.74 10*6/uL 4.35-5.85 Venous blood hemoglobin measurement (mass/volume) 11.8 g/dL 11.5-16.0 Blood hematocrit (volume fraction) 36 % 35-52 Automated erythrocyte mean corpuscular volume 97 [ foz_us] 80-99 Automated erythrocyte mean corpuscular h emoglobin (mass per erythrocyte) 32 pg 25-34 Automated erythrocyte mean corpuscular h emoglobin concentration measurement (mass/volume) 33 g/dL 32-36 Automated erythrocyte distribution width ratio 14. 5 % 10.0- 14.5 Automated blood platelet count (count/volume) 399 10*3/uL 130-400 Automated blood platelet mean volume measurement 10.0 [foz_us] 7.4-10.4 Comprehensive metabolic panel - 05/27/19 15:05 Serum or plasma sodium measurement (moles/volume) 141 mmol/L 135-145 Serum or plasma potassium measurement (moles/volume) 4.3 mmol/L 3.6-5.0 Serum or plasma chloride measurement (moles/volume) 115 mmol/L 98-107 Carbon dioxide 18 mmol/L 21-32 Serum or plasma anion gap determination (moles/volume) 8 mmol/L 5-14 Serum or plasma urea nitrogen measurement (mass/volume ) 48 mg/dL 7-18 Serum or plasma creatinine measurement (mass/volume) 2.12 mg/dL 0.60-1.30 Serum or plasma urea nitrogen/creatinine mass ratio 23 NRG Serum or plasma creatinine measurement w ith calculation of estimated glomerular filtration rate 23 NRG Serum or plasma glucose measurement (mass/volume) 132 mg/dL 70-105 Serum or plasma calcium measurement (mass/volume) 10.0 mg/dL 8.5-10.1 Serum or plasma total bilirubin measurement (mass/volu me) 0.3 mg/dL 0.1-1.0 Serum or plasma alkaline phosphatase krystyna surement (enzymatic activity/volume) 89 U/L 40-136 Serum or plasma aspartate aminotransfera se measurement (enzymatic activity/volume) 18 U/L 5-34 Serum or plasma alanine aminotransferase measurement (enzymatic activity/volume) 17 U/L 0-55 Serum or plasma protein measurement (mass/volume) 6.8 g/dL 6.4-8.2 Serum or plasma albumin measurement (mass/volume) 4.3 g/dL 3.2-4.5 CALCIUM CORRECTED 9.8 mg/dL 8.5-10.1 Complete urinalysis with reflex to cultu re - 06/16/19 15:20 Urine color determination YELLOW NRG Urine clarity determination SL CLOUDY N RG Urine pH measurement by test strip 5.5 5-9 Specific gravity of urine by test strip >= 1.016-1.022 Urine protein assay by test strip, semi-quantitative NEGATIVE NEGATIVE Urine glucose detection by automated test strip NE GATIVE NEGATIVE Erythrocytes detection in urine sediment by light micr oscopy NEGATIVE NEGATIVE Urine ketones detection by automated test strip NE GATIVE NEGATIVE Urine nitrite detection by test strip NEGATIVE NEGATIVE Urine total bilirubin detection by test strip NEGA TIVE NEGATIVE Urine urobilinogen measurement by automated test strip (mass/volume) 0.2 mg/dL < = 1.0 Urine leukocyte esterase detection by dipstick TRA CE NEGATIVE Automated urine sediment erythrocyte cou nt by microscopy (number/high power field) NONE NRG Automated urine sediment leukocyte count by microscopy (number/high power field) [HPF] NRG Bacteria detection in urine sediment by light microsco py MODERATE NRG Crystals detection in urine sediment by light microsco py NONE NRG Casts detection in urine sediment by light microscopy NONE NRG Mucus detection in urine sediment by light microscopy MODERATE NRG Complete urinalysis with reflex to culture YES NRG Bacterial urine culture - 06/16/19 15:20 Bacterial urine culture [id number] NRG COLONY COUNT >100,000/ML NRG FTX;REPORTABLE SUSCEPTIBILITY REPORTED 06/18/19 11 :15 NRG Dirithromycin susceptibility test by dis k diffusion - 06/16/19 15:20 Gentamicin susceptibility test by minimum inhibitory c oncentration <= NRG Trimethoprim/sulfamethoxazole susceptibi lity test by minimum inhibitoryconcentration > NRG Levofloxacin susceptibility test by minimum inhibitory concentration <= NRG Ampicillin susceptibility test by minimum inhibitory c oncentration <= NRG Cefazolin susceptibility test by minimum inhibitory co ncentration <= NRG Ceftriaxone susceptibility test by minimum inhibitory concentration <= NRG Ciprofloxacin susceptibility test by minimum inhibitor y concentration <= NRG Meropenem susceptibility test by minimum inhibitory co ncentration <= NRG Nitrofurantoin susceptibility test by mi nimum inhibitory concentration <= NRG Amoxicillin and clavulanate potassium susc HEATHER <= NRG Complete blood count (CBC) with automate d white blood cell (WBC) differential - 06/16/19 15:25 Blood leukocytes automated count (number/volume) 11.5 10*3/uL 4.3-11.0 Blood erythrocytes automated count (number/volume) 3.72 10*6/uL 4.35-5.85 Venous blood hemoglobin measurement (mass/volume) 11.6 g/dL 11.5-16.0 Blood hematocrit (volume fraction) 36 % 35-52 Automated erythrocyte mean corpuscular volume 98 [ foz_us] 80-99 Automated erythrocyte mean corpuscular h emoglobin (mass per erythrocyte) 31 pg 25-34 Automated erythrocyte mean corpuscular h emoglobin concentration measurement (mass/volume) 32 g/dL 32-36 Automated erythrocyte distribution width ratio 14. 0 % 10.0- 14.5 Automated blood platelet count (count/volume) 533 10*3/uL 130-400 Automated blood platelet mean volume measurement 10.1 [foz_us] 7.4-10.4 Automated blood neutrophils/100 leukocytes 80 % 42-75 Automated blood lymphocytes/100 leukocytes 12 % 12-44 Blood monocytes/100 leukocytes 5 % 0-12 Automated blood eosinophils/100 leukocytes 2 % 0-10 Automated blood basophils/100 leukocytes 1 % 0-10 Blood neutrophils automated count (number/volume) 9.1 10*3 1.8-7.8 Blood lymphocytes automated count (number/volume) 1.4 10*3 1.0-4.0 Blood monocytes automated count (number/volume) 0. 6 10*3 0.0-1.0 Automated eosinophil count 0.3 10*3/uL 0 .0-0.3 Automated blood basophil count (count/volume) 0.1 10*3/uL 0.0-0.1 Blood blood smear finding identification by light micr oscopy YES [facility] Comprehensive metabolic panel - 06/16/19 15:25 Serum or plasma sodium measurement (moles/volume) 138 mmol/L 135-145 Serum or plasma potassium measurement (moles/volume) 4.6 mmol/L 3.6-5.0 Serum or plasma chloride measurement (moles/volume) 108 mmol/L 98-107 Carbon dioxide 20 mmol/L 21-32 Serum or plasma anion gap determination (moles/volume) 10 mmol/L 5-14 Serum or plasma urea nitrogen measurement (mass/volume ) 40 mg/dL 7-18 Serum or plasma creatinine measurement (mass/volume) 1.97 mg/dL 0.60-1.30 Serum or plasma urea nitrogen/creatinine mass ratio 20 NRG Serum or plasma creatinine measurement w ith calculation of estimated glomerular filtration rate 25 NRG Serum or plasma glucose measurement (mass/volume) 131 mg/dL 70-105 Serum or plasma calcium measurement (mass/volume) 10.4 mg/dL 8.5-10.1 Serum or plasma total bilirubin measurement (mass/volu me) 0.3 mg/dL 0.1-1.0 Serum or plasma alkaline phosphatase krystyna surement (enzymatic activity/volume) 86 U/L 40-136 Serum or plasma aspartate aminotransfera se measurement (enzymatic activity/volume) 20 U/L 5-34 Serum or plasma alanine aminotransferase measurement (enzymatic activity/volume) 20 U/L 0-55 Serum or plasma protein measurement (mass/volume) 7.5 g/dL 6.4-8.2 Serum or plasma albumin measurement (mass/volume) 4.6 g/dL 3.2-4.5 Lipase - 06/16/19 15:25 Lipase 41 U/L 8-78 Encounters ACCT No. Visit Date/Time Discharge Status Pt. Type Provider Facility Loc./Unit Complaint [id number] 04/11/2019 13:43:13 04/11/2019 23:59: 59 CLS Outpatient Tigist Nate [id number] 02/07/2019 13:43:06 02/07/2019 23:59: 59 CLS Outpatient Nate Escoto [id number] 01/10/2019 09:43:47 01/10/2019 23:59: 59 CLS Outpatient Tigist Nate [id number] 12/02/2018 13:44:35 12/02/2018 23:59: 59 CLS Outpatient Nate Escoto [id number] 10/21/2018 14:46:11 10/21/2018 23:59: 59 CLS Outpatient MILTON CARVAJAL [id number] 10/21/2018 13:44:37 10/21/2018 23:59: 59 CLS Outpatient Tigist Nate [id number] 09/15/2018 11:48:26 09/15/2018 23:59: 59 CLS Outpatient Frederic Heller [id number] 08/15/2018 11:43:20 08/15/2018 23:59: 59 CLS Outpatient Frederic Heller [id number] 03/09/2016 08:24:00 09:50:00 DIS Outpatient Pedro BOLANOS, Serg Kebede [facility] E.CVLO [id number] 09/03/2015 10:59:00 12:15:00 DIS Outpatient Pete BOLANOS, Alex Paris [facility] E.OR [id number] 06/16/2019 14:32:00 18:00:00 DIS Outpatient CLAUDIA MORAN [facility] ER ABD PAIN/DIARRH EA [id number] 05/27/2019 13:44:00 17:03:00 DIS Emergency SERG ARIAS APRN [facility] ER DIARRHEA -LOW BP 91/53 [id number] 03/24/2019 15:20:00 16:51:00 DIS Emergency PEDRO LUIS BOLANOS, ALISON [place] [facility] ER HIGH BLOOD SUGAR [id number] 03/23/2019 00:12:00 23:59:59 CLS Preadmit VANDANA RAMOS [facility] ONC [id number] 01/11/2019 10:42:00 00:01:00 DIS Outpatient VANDANA RAMOS [facility] ONC [id number] 01/04/2019 07:00:00 12:00:00 DIS Outpatient LARA ROBERTS MD, [facility] RAD ANEMIA [id number] 08/24/2018 12:45:00 00:01:00 DIS Outpatient VANDANA RAMOS V [facility] ONC [id number] 11/03/2018 15:09:00 23:59:59 CLS Outpatient CHRISTY ESQUIVEL MD, FACC, FACP CC DS [facility] LAB CAD [id number] 10/04/2018 06:54:00 09:14:00 DIS Outpatient CHRISTY ESQUIVEL MD, FACC, FACP CC DS [facility] CATH CAD IN SULMA VE ARTERY,CAROTID ARTERIAL DISEASE [id number] 08/18/2018 08:27:00 019 23:59:59 CLS Outpatient KEMI SETH MD [facility] LAB [id number] 05/10/2018 13:13:00 019 00:01:00 DIS Outpatient LARA ROBERTS MD [facility] ONC [id number] 07/22/2018 09:45:00 019 23:59:59 CLS Outpatient JEOL MORILLO [facility] RAD SCREENING [id number] 05/16/2018 07:45:00 23:59:59 CLS Outpatient JOEL MORILLO [facility] RAD THYROID NODULE [id number] 05/05/2018 10:37:00 23:59:59 CLS Outpatient WINSTON HARRISON MD [facility] LAB [id number] 02/02/2018 14:16:00 018 00:01:00 DIS Outpatient LARA ROBERTS MD, V [facility] ONC [id number] 11/03/2017 13:36:00 018 00:01:00 DIS Outpatient LARA ROBERTS MD, V [facility] ONC [id number] 01/11/2018 10:54:00 018 23:59:59 CLS Outpatient SIERRA BOLANOS FACC, CHRISTY LIN CC DS [facility] CARD CHEST DISCOMFORT,SOB,SLEEP APNEA,TOBACCO USER [id number] 11/11/2017 13:53:00 018 23:59:59 CLS Outpatient LARA ROBERTS MD, V [facility] RAD BREAST THICKENING, THYR OID NODULE [id number] 08/25/2017 12:52:00 018 00:01:00 DIS Outpatient VANDANA RAMOS [facility] ONC [id number] 09/01/2017 13:15:00 018 23:59:59 CLS Preadmit JOEL MORILLO [facility] RAD N64.59 BREAST THICKENIN G [id number] 09/01/2017 14:55:00 018 17:11:00 DIS Emergency SERG 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 [employer]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 [facility]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 LEFT LEG AND KNEE PAIN [id number] 08/25/2017 13:03:00 018 23:59:59 CLS Outpatient WINSTON HARRISON MD [facility] LAB [id number] 08/09/2017 13:00:00 018 23:59:59 CLS Preadmit VIRI GARCIA APRN [facility] PULM COPD J44.9 [id number] 08/09/2017 10:45:00 018 13:31:00 DIS Emergency CLAUDIA MORAN [facility] ER RIGHT FOOT PAIN/SWELLI NG [id number] 06/01/2017 14:30:00 018 00:01:00 DIS Outpatient VIRI GARCIA APRN [facility] PULM COPD J44.9 [id number] 07/14/2017 13:15:00 018 23:59:59 CLS 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 [facility] RAD N64.59 BREAST T HICKENING [id number] 03/31/2017 13:29:00 018 00:01:00 DIS Outpatient ANNA WEIR MD [facility] ONC [id number] 03/24/2017 13:30:00 017 00:01:00 DIS Outpatient ANNA WEIR MD [facility] ONC [id number] 03/12/2017 09:37:00 017 23:59:59 CLS Outpatient CHARMAINE SKAGGS MD [facility] RAD NECK PAIN M54.2 [id number] 02/15/2017 09:40:00 017 23:59:59 CLS Outpatient CHARMAINE SKAGGS MD [facility] RAD RADICULOPATHY [id number] 01/06/2017 13:57:00 017 10:53:00 DIS Outpatient DALIA BOLANOS, ERMA [facility] ONC [id number] 12/25/2016 13:49:00 017 00:01:00 DIS Outpatient DALIA BOLANOS, ERMA [facility] ONC [id number] 05/11/2016 12:48:00 017 00:01:00 DIS Outpatient DALIA BOLANOS, ERMA [facility] ONC [id number] 07/24/2016 07:13:00 017 11:37:00 DIS Emergency ADAM BOLANOS, ANDREA [place] [facility] ER LEFT HIP PAIN [id number] 05/19/2016 14:02:00 23:59:59 CLS Outpatient DALIA BOLANOS, ERMA [facility] RAD SCREENING [id number] 11/05/2015 12:14:00 016 00:01:00 DIS Outpatient ERMA GÓMEZ MD, V [facility] ONC [id number] 06/04/2015 12:55:00 016 00:01:00 DIS Outpatient DALIA BOLANOS, ERMA Fernandes [facility] ONC [id number] 11/27/2014 12:49:00 015 00:01:00 DIS Outpatient ERMA GÓMEZ MD, V [facility] ONC [id number] 01/31/2015 08:24:00 23:59:59 CLS Outpatient ROBYN MEZA MD [facility] RAD EXACEBERATION OF LEFT K NEE PAIN [id number] 12/26/2014 08:48:00 23:59:59 CLS Outpatient ERMA GÓMEZ MD [facility] RAD SCREENING [id number] 11/21/2014 08:58:00 23:59:59 CLS Outpatient RONIT HEADLEY MD [facility] RAD UNILATERAL RT THROAT PA IN [id number] 05/29/2014 13:32:00 23:59:59 CLS Outpatient DALIA BOLANOS, ERMA [facility] ONC [id number] 11/28/2013 13:33:00 00:01:00 DIS Outpatient ERMA GÓMEZ MD [facility] ONC [id number] 12/25/2013 08:38:00 23:59:59 CLS Outpatient ERMA GÓMEZ MD [facility] RAD CA BREAST [id number] 07/06/2013 13:53:00 23:59:59 CLS Outpatient ERMA GÓMEZ MD [facility] ONC [id number] 05/01/2013 07:49:00 23:59:59 CLS Outpatient TAE JAIN MD [facility] RAD RT FLANK PAIN [id number] 01/31/2013 12:46:00 23:59:59 CLS Outpatient ERMA GÓMEZ MD [facility] ONC [id number] 12/22/2012 12:13:00 23:59:59 CLS Outpatient NICK SEGOVIA [facility] RAD HX BREAST LUMPS,SHADOW ON CHEST XRAY [id number] 05/05/2018 10:46:00 Document Registration [id number] 05/05/2018 10:41:00 Document Registration [id number] 09/28/2012 20:00:00 Document Registration [id number] 09/19/2012 07:39:00 Document Registration [id number] 09/12/2012 13:15:00 Document Registration [id number] 08/02/2012 12:43:00 Document Registration [id number] 06/06/2012 08:59:00 Document Registration
== END 2019-05-27 17:03 | disposition home or self-care (01) ==
LOC: EDUNIT# 13:42 → ER 13:44
DX: R19.7 Diarrhea, unspecified (principal); E86.0 Dehydration; E11.22 Type 2 diabetes mellitus with diabetic chronic kidney disease; I12.9 Hypertensive chronic kidney disease with stage 1 through stage 4 chronic kidney disease, or unspecified chronic kidney disease; N18.9 Chronic kidney disease, unspecified; E78.00 Pure hypercholesterolemia, unspecified; I25.10 Atherosclerotic heart disease of native coronary artery without angina pectoris; J44.9 Chronic obstructive pulmonary disease, unspecified; K21.9 Gastro-esophageal reflux disease without esophagitis; M79.7 Fibromyalgia; Z99.89 Dependence on other enabling machines and devices; Z90.89 Acquired absence of other organs; Z90.710 Acquired absence of both cervix and uterus; Z88.6 Allergy status to analgesic agent; Z88.1 Allergy status to other antibiotic agents; Z88.5 Allergy status to narcotic agent; Z88.8 Allergy status to other drugs, medicaments and biological substances; Z79.82 Long term (current) use of aspirin; Z79.02 Long term (current) use of antithrombotics/antiplatelets; Z87.891 Personal history of nicotine dependence
CPT/HCPCS: 36415; 80053; 85027; 96360

== ENCOUNTER 2019-06-16 14:30 | Emergency (ER) | payer MEDICARE, OTHER ==
[~2019-06-16] VITALS: Ht 157.4 cm; Wt 75.0 kg
[2019-06-16 15:25] LABS: BILIRUBIN,URINE NEGATIVE (NEGATIVE); CLARITY,URINE SL CLOUDY; COLOR,URINE YELLOW; GLUCOSE, URINE (UA) NEGATIVE (NEGATIVE); KETONES,URINE NEGATIVE (NEGATIVE); LEUKOCYTE ESTERASE ,URINE TRACE (NEGATIVE); NITRITE,URINE NEGATIVE (NEGATIVE); PH,URINE 5.5 (5-9); PROTEIN,URINE NEGATIVE (NEGATIVE)
[2019-06-16 15:31] LABS: BASOPHILS # (AUTO) 0.1 10^3/uL (0.0-0.1); BASOPHILS % (AUTO) 1 % (0-10); EOSINOPHILS # (AUTO) 0.3 10^3/uL (0.0-0.3); EOSINOPHILS % (AUTO) 2 % (0-10); HEMATOCRIT 36 % (35-52); HEMOGLOBIN 11.6 G/DL (11.5-16.0); LYMPHOCYTES # (AUTO) 1.4 X 10^3 (1.0-4.0); LYMPHOCYTES % (AUTO) 12 % (12-44); MEAN CORPUSCULAR HEMOGLOBIN 31 PG (25-34); MEAN CORPUSCULAR HGB CONC 32 G/DL (32-36); MEAN CORPUSCULAR VOLUME 98 FL (80-99); MEAN PLATELET VOLUME 10.1 FL (7.4-10.4); MONOCYTES # (AUTO) 0.6 X 10^3 (0.0-1.0); MONOCYTES % (AUTO) 5 % (0-12); NEUTROPHILS # (AUTO) 9.1 X 10^3 (1.8-7.8); NEUTROPHILS % (AUTO) 80 % (42-75); PLATELET COUNT 533 10^3/uL (130-400); WHITE BLOOD COUNT 11.5 10^3/uL (4.3-11.0)
[2019-06-16 15:32] LABS: SMEAR SCAN COMMENT YES
[2019-06-16 15:44] LABS: BACTERIA,URINE MODERATE /HPF
[2019-06-16 15:51] LABS: ALANINE AMINOTRANSFERASE 20 U/L (0-55); ALBUMIN 4.6 GM/DL (3.2-4.5); ALKALINE PHOSPHATASE 86 U/L (40-136); BILIRUBIN,TOTAL 0.3 MG/DL (0.1-1.0); BUN/CREATININE RATIO 20; CALCIUM 10.4 MG/DL (8.5-10.1); CARBON DIOXIDE 20 MMOL/L (21-32); CHLORIDE 108 MMOL/L (98-107); CREATININE SERUM 1.97 MG/DL (0.60-1.30); GFR ESTIMATED 25; GLUCOSE 131 MG/DL (70-105); LIPASE 41 U/L (8-78); POTASSIUM 4.6 MMOL/L (3.6-5.0); SODIUM 138 MMOL/L (135-145); TOTAL PROTEIN 7.5 GM/DL (6.4-8.2)
[2019-06-16] MEDS ORDERED: NS IV 1000 ML 1,000 ML IV ONE (15:54)
--- NOTE | 2019-06-16 16:29 | Diagnostic Imaging Report ---
INDICATION: Right-sided flank pain EXAM: CT of the abdomen and pelvis without IV contrast. TECHNIQUE: Multiple contiguous axial images were obtained through the abdomen and pelvis without the use of intravenous contrast. Auto Exposure Controls were utilized during the CT exam to meet ALARA standards for radiation dose reduction. COMPARISON made with 05/01/2013 The visualized portions of the lung bases are clear. There were no pleural fluid collections. There is no free intraperitoneal air. The liver shows no focal lesion. Patient had cholecystectomy. The spleen shows a few calcified granulomata but is otherwise normal in appearance. The adrenals and pancreas appear unremarkable without contrast. The left kidney shows a nonocclusive calculus in the midpole measuring 2 to 3 mm. There is no hydronephrosis or ureteral stone. The right kidney shows no radiopaque calculi or ureteral stone. There is no retroperitoneal mass or adenopathy. There is no ascites. There is atherosclerotic calcification of the aorta. There are bilateral renal artery stents. There is no pelvic mass or free fluid. There are uncomplicated sigmoid diverticula. The patient appears to have had a prior hysterectomy. IMPRESSION: Postoperative changes status post cholecystectomy and renal artery stent placement and hysterectomy. No abdominal mass or abnormal fluid collection. There is a nonocclusive calcification around the midpole the left kidney. There is no ureteral stone. Dictated by: Dictated on workstation # [id number]
--- NOTE | 2019-06-16 17:23 | ED GI ---
General Chief Complaint: Abdominal/GI Problems Stated Complaint: ABD PAIN/DIARRHEA Nursing Triage Note: PT AMB TO TRIAGE WITH COMPLAINT OF ABD PAIN AND DIARRHEA SINCE BEFORE . STATES SHE HAS BEEN SEEN MULTIPLE TIMES IN THE ER AND BY DR PEREZ FOR INTERMITTENT DIARHEA. PT STATES SHE WAS LAST SEEN BY DR PEREZ ON 05/29/19. PT IS COMPLAINING OF RUQ PAIN Sepsis Screen: No Definite Risk Source of Information: Patient Exam Limitations: No Limitations History of Present Illness Date Seen by Provider: Jun 16, 2019 Time Seen by Provider: 15:00 Initial Comments 74-year-old female patient presents with complaints of diarrhea beginning before . Patient states she followed up with Dr. Perez on 05/29/19 with instructions to stop the Ozempic. She also reports decreasing her Neurontin to twice daily and stopping the allopurinol one week ago. Denies improvement in diarrhea. Also complains of right rib pain radiating into the back which is worse with movement and palpation. Denies known injury. Patient reports attempting to contact Dr. Perez's office today, but states she did not receive a return call. States she decided to come to the emergency department for eval uation. Timing/Duration: Constant, Other (1 month onset) Severity/Quality: Aching (rib and right back pain is achy) Activities at Onset: None Modifying Factors: Worsens With Eating (diarrhea is worse with eating), Worsens With Movement, Worsens With Palpation Allergies and Home Medications Allergies Coded Allergies: acetaminophen (Verified Allergy, Unknown, 09/01/17) atorvastatin calcium (Unverified Allergy, Unknown, 07/27/16) cefdinir (Verified Allergy, Unknown, 09/01/17) codeine (Unverified Allergy, Unknown, 07/27/16) doxycycline (Verified Allergy, Unknown, 09/01/17) escitalopram oxalate (Unverified Allergy, Unknown, 07/27/16) niacin (Unverified Allergy, Unknown, 07/27/16) oxycodone (Verified Allergy, Unknown, 09/01/17) simvastatin (Unverified Allergy, Unknown, 07/27/16) tramadol (Unverified Allergy, Unknown, 07/27/16) Home Medications Aspirin 81 Mg Tab.chew, 81 MG PO DAILY Prescribed by: JENNIFER COTTER on 10/04/18 1185 Bisoprolol Fumarate/Hctz 1 Each Tablet, 1 EACH PO DAILY, (Reported) Clopidogrel Bisulfate 75 Mg Tablet, 1 EACH PO DAILY, (Reported) Doxazosin Mesylate 2 Mg Tablet, 6 MG PO BID, (Reported) Glipizide 5 Mg Tab.er.24, 5 MG PO DAILY, (Reported) Isosorbide Mononitrate 120 Mg Tab.er.24h, 120 MG PO DAILY, (Reported) Levofloxacin 250 Mg Tablet, 250 MG PO UD 2 tabs po x 1 dose, then 1 tab po daily Prescribed by: CLAUDIA SANCHEZ on 06/16/19 1724 Losartan Potassium 100 Mg Tablet, 100 MG PO DAILY, (Reported) Pantoprazole Sodium 40 Mg Tablet.dr, 40 MG PO DAILY, (Reported) Patient Home Medication List Home Medication List Reviewed: Yes Review of Systems Review of Systems Constitutional: No chills, No diaphoresis, No dizziness, No fever, No malaise, No weakness EENTM: No Symptoms Reported Respiratory: See HPI; Denies Cough, Denies Orthopnea, Denies Shortness of Air, Denies SOA With Exertion, Denies Wheezing; Other (rib pain) Cardiovascular: Denies Chest Pain, Denies Edema, Denies Lightheadedness, Denies Palpitations, Denies Syncope Gastrointestinal: See HPI; Denies Abdomen Distended, Denies Abdominal Pain, Denies Blood Streaked Stools, Denies Constipated; Diarrhea; Denies Nausea, Denies Rectal Bleeding, Denies Vomiting Genitourinary: Denies Burning, Denies Frequency, Denies Flank Pain, Denies Hematuria Musculoskeletal: see HPI, back pain Skin: no symptoms reported Psychiatric/Neurological: No Symptoms Reported All Other Systems Reviewed Negative Unless Noted: Yes (Negative excepted noted.) Past Epkogxm-Cookxr-Cgyabr Hx Past Med/Social Hx: Reviewed Nursing Past Med/Soc Hx Patient Social History Alcohol Use: Denies Use Recreational Drug Use: No Smoking Status: Former Smoker Type Used: Cigarettes Former Smoker, Quit: Aug 15, 2012 2nd Hand Smoke Exposure: No Recent Foreign Travel: No Contact w/Someone Who Travel: No Recent Infectious Disease Expo: No Recent Hopitalizations: No Immunizations Up To Date Tetanus Booster (TDap): Less than 5yrs PED Vaccines UTD: No Date of Pneumonia Vaccine: Sep 26, 2009 Date of Influenza Vaccine: Mar 22, 2012 Seasonal Allergies Seasonal Allergies: No Past Medical History Surgeries: No Adenoidectomy, Bladder Surgery, Coronary Stent, Gallbladder, Hysterectomy, Orthopedic Respiratory: No COPD Currently Using CPAP: Yes Cardiac: Yes Coronary Artery Disease, High Cholesterol, Hypertension Neurological: No Reproductive Disorders: No Female Reproductive Disorders: Denies Sexually Transmitted Disease: No HIV/AIDS: No Genitourinary: Yes (CHRONIC KIDNEY DZ) Gastrointestinal: Yes (DIVERTICULITIS) Gastroesophageal Reflux, Polyps Musculoskeletal: Yes (, CERVICAL STENOSIS) Fibromyalgia Endocrine: Yes (history of thyroid nodules) Adrenal Disease, Diabetes, Non-Insulin dep Loss of Vision: Bilateral Hearing Impairment: Hard of Hearing Cancer: No Psychosocial: No Integumentary: No Blood Disorders: Yes (LEUKOCYTOSIS AND THROMBOSYTOSIS) Adverse Reaction/Blood Tranf: No Family Medical History Reviewed Nursing Family Hx No Pertinent Family Hx Physical Exam Vital Signs Vital Signs - First Documented 06/16/19 14:38 Temp 36.8 Pulse 64 Resp 17 B/P (MAP) 131/76 (94) Pulse Ox 99 O2 Delivery Room Air Capillary Refill : Less Than 3 Seconds Height/Weight/BMI Height: 5'2.00" Weight: 166lbs. 6.0oz. 75.698297ze; 30.00 BMI Method:Stated General Appearance: WD/WN, no apparent distress HEENT: PERRL/EOMI, pharynx normal Neck: supple, normal inspection Respiratory: lungs clear, normal breath sounds, no respiratory distress, no accessory muscle use, other (TTP over the rt posterior, lateral and anterior 10- 11th ribs without swelling, ecchymosis, or deformity.) Cardiovascular: normal peripheral pulses, regular rate, rhythm, no edema, no murmur Gastrointestinal: normal bowel sounds, non tender, soft, no organomegaly; No distended Extremities: no pedal edema, no calf tenderness, normal capillary refill Back: normal inspection, no vertebral tenderness, decreased range of motion, muscle spasm (TTP over the rt posterior, lateral and anterior 10-11th ribs without swelling, ecchymosis, or deformity.) Neurologic/Psychiatric: no motor/sensory deficits, alert, normal mood/affect, oriented x 3 Skin: normal color, warm/dry; No ecchymosis Progress/Results/Core Measures Results/Orders Lab Results Laboratory Tests Test 06/16/19 15:20 06/16/19 15:25 Range/Units Urine Color YELLOW Urine Clarity SL CLOUDY Urine pH 5.5 5-9 Urine Specific [place] >=1.030 1.016-1.022 Urine Protein NEGATIVE NEGATIVE Urine Glucose (UA) NEGATIVE NEGATIVE Urine Ketones NEGATIVE NEGATIVE Urine Nitrite NEGATIVE NEGATIVE Urine Bilirubin NEGATIVE NEGATIVE Urine Urobilinogen 0.2 < = 1.0 MG/DL Urine Leukocyte Esterase TRACE NEGATIVE Urine RBC (Auto) NEGATIVE NEGATIVE Urine RBC NONE /HPF Urine WBC 5-10 H /HPF Urine Crystals NONE /LPF Urine Bacteria MODERATE H /HPF Urine Casts NONE /LPF Urine Mucus MODERATE H /LPF Urine Culture Indicated YES White Blood Count 11.5 H 4.3-11.0 10^3/uL Red Blood Count 3.72 L 4.35-5.85 10^6/uL Hemoglobin 11.6 11.5-16.0 G/DL Hematocrit 36 35-52 % Mean Corpuscular Volume 98 80-99 FL Mean Corpuscular Hemoglobin 31 25-34 PG Mean Corpuscular Hemoglobin Concent 32 32-36 G/DL Red Cell Distribution Width 14.0 10.0-14.5 % Platelet Count 533 H 130-400 10^3/uL Mean Platelet Volume 10.1 7.4-10.4 FL Neutrophils (%) (Auto) 80 H 42-75 % Lymphocytes (%) (Auto) 12 12-44 % Monocytes (%) (Auto) 5 0-12 % Eosinophils (%) (Auto) 2 0-10 % Basophils (%) (Auto) 1 0-10 % Neutrophils # (Auto) 9.1 H 1.8-7.8 X 10^3 Lymphocytes # (Auto) 1.4 1.0-4.0 X 10^3 Monocytes # (Auto) 0.6 0.0-1.0 X 10^3 Eosinophils # (Auto) 0.3 0.0-0.3 10^3/uL Basophils # (Auto) 0.1 0.0-0.1 10^3/uL Sodium Level 138 135-145 MMOL/L Potassium Level 4.6 3.6-5.0 MMOL/L Chloride Level 108 H 98-107 MMOL/L Carbon Dioxide Level 20 L 21-32 MMOL/L Anion Gap 10 5-14 MMOL/L Blood Urea Nitrogen 40 H 7-18 MG/DL Creatinine 1.97 H 0.60-1.30 MG/DL Estimat Glomerular Filtration Rate 25 BUN/Creatinine Ratio 20 Glucose Level 131 H 70-105 MG/DL Calcium Level 10.4 H 8.5-10.1 MG/DL Corrected Calcium 8.5-10.1 MG/DL Total Bilirubin 0.3 0.1-1.0 MG/DL Aspartate Amino Transf (AST/SGOT) 20 5-34 U/L Alanine Aminotransferase (ALT/SGPT) 20 0-55 U/L Alkaline Phosphatase 86 40-136 U/L Total Protein 7.5 6.4-8.2 GM/DL Albumin 4.6 H 3.2-4.5 GM/DL Lipase 41 8-78 U/L Smear Scan YES My Orders Orders - CLAUDIA SANCHEZ Ed Iv/Invasive Line Start (06/16/19 15:05) Cbc With Automated Diff (06/16/19 15:05) Comprehensive Metabolic Panel (06/16/19 15:05) Lipase (06/16/19 15:05) Ua Culture If Indicated (06/16/19 15:05) Urine Culture (06/16/19 15:20) Ct Abd/Pelvis Wo(Kidney Stone) (06/16/19 15:54) Ns Iv 1000 Ml (Sodium Chloride 0.9%) (06/16/19 15:54) Medications Given in ED Current Medications Medications Dose Ordered Sig/Syl Route Start Time Stop Time Status Last Admin Dose Admin Sodium Chloride 1,000 ml @ 0 mls/hr Q0M ONCE IV 06/16/19 15:54 06/16/19 15:55 DC 06/16/19 16:07 0 MLS/HR Vital Signs/I&O 06/16/19 06/16/19 14:38 18:00 Temp 36.8 36.8 Pulse 64 64 Resp 17 17 B/P (MAP) 131/76 (94) 131/76 (94) Pulse Ox 99 99 O2 Delivery Room Air Room Air 06/17/19 00:00 Intake Total 1000 ml Balance 1000 ml Blood Pressure Mean: 94 Diagnostic Imaging Diagonstic Imaging: CT Plain Films/CT/US/NM/MRI: abdomen, pelvis Comments Date of Exam:06/16/19 CT ABD/PELVIS WO(KIDNEY STONE) INDICATION: Right-sided flank pain EXAM: CT of the abdomen and pelvis without IV contrast. TECHNIQUE: Multiple contiguous axial images were obtained through the abdomen and pelvis w ithout the use of intravenous contrast. Auto Exposure Controls were utilized during the CT exam to meet ALARA standards for radiation dose reduction. COMPARISON made with 05/01/2013 The visualized portions of the lung bases are clear. There were no pleural fluid collections. There is no free intraperitoneal air. The liver shows no focal lesion. Patient had cholecystectomy. The spleen shows a few calcified granulomata but is otherwise normal in appearance. The adrenals and pancreas appear unremarkable without contrast. The left kidney shows a nonocclusive calculus in the midpole measuring 2 to 3 mm. There is no hydronephrosis or ureteral stone. The right kidney shows no radiopaque calculi or ureteral stone. There is no retroperitoneal mass or adenopathy. There is no ascites. There is atherosclerotic calcification of the aorta. There are bilateral renal artery stents. There is no pelvic mass or free fluid. There are uncomplicated sigmoid diverticula. The patient appears to have had a prior hysterectomy. IMPRESSION: Postoperative changes status post cholecystectomy and renal artery stent placement and hysterectomy. No abdominal mass or abnormal fluid collection. There is a nonocclusive calcification around the midpole the left kidney. There is no ureteral stone. Dictated by: Dictated on workstation # [id number] Reviewed: Reviewed by Me (radiology report reviewed by me) Departure Communication (Admissions) Patient seen and evaluated. Labs and a CT abdomen/pelvis obtained. All findings discussed with the patient. Plan for discharge to home with follow-up as an outpatient with results. Patient given supplies and order for outpatient stool cultures. Patient will follow-up with Dr. Perez for the results. Patient instructed to return to the emergency department immediately for worsened symptoms or any other concerns. Impression Primary Impression: Urinary tract infection Qualified Codes: N30.00 - Acute cystitis without hematuria Additional Impressions: Muscle spasm Diarrhea Qualified Codes: R19.7 - Diarrhea, unspecified Disposition: HOME, SELF-CARE Condition: Improved Departure-Patient Inst. Decision time for Depature: 17:18 Referrals: RAJWINDER PEREZ MD (PCP/Family) Primary Care Physician Patient Instructions: Diarrhea in Adolescents and Adults, Urinary Tract Infections in Adults, Muscle Spasms (DC) Add. Discharge Instructions: All discharge instructions reviewed with patient and/or family. Voiced understanding. Medications as instructed. Continue usual home medications. Tylenol cxsz-axt-egzpzrw as directed for pain if needed. Use a warm packs and pads as needed for pain and muscle spasm. Follow-up with Dr. Perez Wednesday for recheck, call first thing Wednesday morning for appointment time. Return to the emergency department for worsened symptoms, fever, blood in the stool, or any other concerns. Scripts Levofloxacin (Levofloxacin) 250 Mg Tablet 250 MG PO UD, #8 TAB 0 Refills 2 tabs po x 1 dose, then 1 tab po daily Prov: CLAUDIA SANCHEZ 06/16/19 CLAUDIA SANCHEZ Jun 16, 2019 17:23
[2019-06-16] MEDS ORDERED: LEVO250T46 PO (17:24)
[2019-06-16 18:00] VITALS: BP 131/76
== END 2019-06-16 18:00 | disposition home or self-care (01) ==
LOC: EDUNIT# 14:30 → ER 14:32
DX: N39.0 Urinary tract infection, site not specified (principal); M62.838 Other muscle spasm; R19.7 Diarrhea, unspecified; J44.9 Chronic obstructive pulmonary disease, unspecified; E11.22 Type 2 diabetes mellitus with diabetic chronic kidney disease; I12.9 Hypertensive chronic kidney disease with stage 1 through stage 4 chronic kidney disease, or unspecified chronic kidney disease; N18.9 Chronic kidney disease, unspecified; E78.00 Pure hypercholesterolemia, unspecified; I25.10 Atherosclerotic heart disease of native coronary artery without angina pectoris; K21.9 Gastro-esophageal reflux disease without esophagitis; M79.7 Fibromyalgia; Z88.6 Allergy status to analgesic agent; Z88.1 Allergy status to other antibiotic agents; Z88.5 Allergy status to narcotic agent; Z88.8 Allergy status to other drugs, medicaments and biological substances; Z79.82 Long term (current) use of aspirin; Z79.02 Long term (current) use of antithrombotics/antiplatelets; Z87.891 Personal history of nicotine dependence; Z90.89 Acquired absence of other organs; Z95.5 Presence of coronary angioplasty implant and graft; Z90.710 Acquired absence of both cervix and uterus
CPT/HCPCS: 36415; 74176; 80053; 81000; 83690; 85025; 87077; 87088; 87186; 96360

== ENCOUNTER → 2019-07-11 | Outpatient (CLI) | payer MEDICARE, OTHER ==
[~2019-07-11] MED LIST changes: +BISO-3 PO; -BISO1TAB6 PO; +LEVO250T46 PO
--- NOTE | 2019-07-11 12:59 | Diagnostic Imaging Report ---
INDICATION: Routine screening. Comparison is made with prior mammogram from 07/22/2018 and 07/14/2017. 2-D and 3-D bilateral screening mammography was performed with CAD. Both breasts are heterogeneously dense, limiting the sensitivity of mammography. There are scattered benign calcifications in both breasts. The parenchymal pattern is stable. Fibronodular densities are stable. No new mass or malignant appearing microcalcifications are seen. Axillae are unremarkable. IMPRESSION: BI-RADS Category 2 No mammographic features suspicious for malignancy are identified. ACR BI-RADS Category 2: Benign findings. Result letter will be mailed to the patient. Note: At least 10% of breast cancer is not imaged by mammography. Dictated by: Dictated on workstation # [id number]
== END ==
LOC: RAD 10:19
PROVIDERS: ATTEND Nurse Practitioner Adult Health
DX: Z12.31 Encounter for screening mammogram for malignant neoplasm of breast (principal)
CPT/HCPCS: 77067

== ENCOUNTER 2019-07-20 12:15 | Outpatient (RCR) | payer MEDICARE, OTHER ==
[2019-07-11 11:02] LABS: BASOPHILS # (AUTO) 0.1 10^3/uL (0.0-0.1); BASOPHILS % (AUTO) 0 % (0-10); EOSINOPHILS # (AUTO) 0.2 10^3/uL (0.0-0.3); EOSINOPHILS % (AUTO) 2 % (0-10); HEMATOCRIT 37 % (35-52); HEMOGLOBIN 11.8 G/DL (11.5-16.0); LYMPHOCYTES # (AUTO) 1.3 X 10^3 (1.0-4.0); LYMPHOCYTES % (AUTO) 10 % (12-44); MEAN CORPUSCULAR HEMOGLOBIN 31 PG (25-34); MEAN CORPUSCULAR HGB CONC 32 G/DL (32-36); MEAN CORPUSCULAR VOLUME 98 FL (80-99); MEAN PLATELET VOLUME 10.1 FL (7.4-10.4); MONOCYTES # (AUTO) 0.7 X 10^3 (0.0-1.0); MONOCYTES % (AUTO) 5 % (0-12); NEUTROPHILS # (AUTO) 10.3 X 10^3 (1.8-7.8); NEUTROPHILS % (AUTO) 82 % (42-75); PLATELET COUNT 399 10^3/uL (130-400); RED CELL DISTRIBUTION WIDTH 15.3 % (10.0-14.5); WHITE BLOOD COUNT 12.5 10^3/uL (4.3-11.0)
[2019-07-11 11:29] LABS: ALBUMIN 4.3 GM/DL (3.2-4.5); BILIRUBIN,TOTAL 0.5 MG/DL (0.1-1.0); CALCIUM 9.9 MG/DL (8.5-10.1); CREATININE SERUM 1.81 MG/DL (0.60-1.30); POTASSIUM 4.6 MMOL/L (3.6-5.0); TOTAL PROTEIN 6.8 GM/DL (6.4-8.2)
== END 2019-10-09 | disposition home or self-care (01) ==
LOC: ONC 12:15
PROVIDERS: ATTEND Internal Medicine Hematology & Oncology
DX: D47.1 Chronic myeloproliferative disease (principal); D50.9 Iron deficiency anemia, unspecified; I12.9 Hypertensive chronic kidney disease with stage 1 through stage 4 chronic kidney disease, or unspecified chronic kidney disease; E11.22 Type 2 diabetes mellitus with diabetic chronic kidney disease; N18.3 Chronic kidney disease, stage 3 (moderate); I25.10 Atherosclerotic heart disease of native coronary artery without angina pectoris; E78.5 Hyperlipidemia, unspecified; M79.7 Fibromyalgia; Z48.812 Encounter for surgical aftercare following surgery on the circulatory system; Z87.891 Personal history of nicotine dependence; Z79.899 Other long term (current) drug therapy; E04.2 Nontoxic multinodular goiter
CPT/HCPCS: 80053; 82728; 83615; 85025; 99213

== ENCOUNTER → 2019-07-20 | Outpatient (CLI) | payer MEDICARE, OTHER | LOC: LAB 12:20 | PROVIDERS: ATTEND Orthopaedic Surgery Orthopaedic Surgery of the Spine | DX: M54.5 Low back pain (principal) | CPT/HCPCS: 36415; 85652; 86038; 86039; 86141; 86431; 86618; 86666; 86668; 86757 ==

== ENCOUNTER 2019-10-17 07:19 | Day surgery (SDC) | payer MEDICARE, OTHER ==
[~2019-10-17] VITALS: Ht 157.5 cm; Wt 74.0 kg
[2019-10-17] MEDS ORDERED: LIDOCAINE 1% INJ 20 ML 20 ML VIAL ONE (07:37)
[2019-10-17] MEDS ORDERED: HEParin (CATH LAB) 2,000 ML IV ONE (07:37)
[2019-10-17] MEDS ORDERED: NS IV 1000 ML 1,000 ML ONE ×2 (07:38→10:45)
[2019-10-17] MEDS ORDERED: NS IV 1000 ML 1,000 ML IV SCH ×2 (07:40→07:45)
[2019-10-17 08:14] LABS: RED CELL DISTRIBUTION WIDTH 15.1 % (10.0-14.5); WHITE BLOOD COUNT 12.4 10^3/uL (4.3-11.0)
[2019-10-17 08:18] VITALS: BP 155/68
[2019-10-17 08:25] LABS: PROTHROMBIN TIME PATIENT 13.3 SEC (12.2-14.7)
[2019-10-17 08:27] LABS: POTASSIUM 4.4 MMOL/L (3.6-5.0)
[2019-10-17 08:28] LABS: ALBUMIN 3.8 GM/DL (3.2-4.5)
[2019-10-17 08:29] LABS: CALCIUM 9.5 MG/DL (8.5-10.1)
[2019-10-17 08:30] LABS: TOTAL PROTEIN 6.9 GM/DL (6.4-8.2)
[2019-10-17 08:32] LABS: BILIRUBIN,TOTAL 0.4 MG/DL (0.1-1.0)
[2019-10-17 08:34] LABS: CREATININE SERUM 1.92 MG/DL (0.60-1.30)
[2019-10-17] MEDS ORDERED: ALBU0.63 IH (08:54)
[2019-10-17] MEDS ORDERED: GABA-488 PO (08:54)
[2019-10-17] MEDS ORDERED: GLIM4TAB5 PO (08:54)
[2019-10-17] MEDS ORDERED: DULA0.75 SQ (08:54)
[2019-10-17] MEDS ORDERED: AMIT25TA9 PO (08:54)
[2019-10-17] MEDS ORDERED: MIDAZOLAM 5 MG/5 ML (VERSED) VIAL ONE (10:24)
[2019-10-17] MEDS ORDERED: fentaNYL INJECTION 100 MCG/2 ML AMP ONE (10:24)
--- NOTE | 2019-10-17 11:10 | Cardiac Procedure Note-CS/ASA ---
Pre-Procedure Note Pre-Op Procedure Note H&P Reviewed The H&P was reviewed, patient examined and no changes noted. Date H&P Reviewed: Oct 17, 2019 Time H&P Reviewed: 11:09 Conscious Sedation Pre-Proced Time 11:09 ASA Score 3 For ASA 3 and 4: Consider anesthesia and medical clearance. Also, for patients with a history of failed moderate sedation consider anesthesia. Airway Lungs Heart ASA score ASA 1: a normal healthy patient ASA 2: a patient with a mild systemic disease (mid diabetes, controlled hypertension, obesity ASA 3: a patient with a severe systemic disease that limits activity (angina, COPD, prior Myocardial infarction) ASA 4: a patient with an incapacitating disease that is a constant threat to life (CHF, renal failure) ASA 5: a moribund patient not expected to survive 24 hrs. (ruptured aneurysm) ASA 6: a declared brain- patient whose organs are being harvested. For emergent operations, add the letter E after the classification Mallampati Classification Grade 2 Sedation Plan Analgesia, Amnesia, Plan communicated to team members, Discussed options with patient/fam, Discussed risks with patient/fam The patient is an appropriate candidate to undergo the planned procedure, sedation, and anesthesia. The patient immediately re-assessed prior to indication. CHRISTY ESQUIVEL MD FACP FAC CCDS Oct 17, 2019 11:10
[2019-10-17] MEDS ORDERED: HEParin 1000 UNIT/ML (10ML VIAL) FOR BOLUS ONE (11:18)
[2019-10-17] MEDS ORDERED: ADENOSINE 3 MG/1 ML (ADENOSCAN) 30ML VIAL IV ONE ×2 (11:18→11:29)
[2019-10-17] MEDS ORDERED: ASPIRIN 81 MG CHEW (CHILDREN'S ASA) ONE (11:49)
[2019-10-17] MEDS ORDERED: CLOPIDOGREL 75 MG (PLAVIX) TABLET ONE (11:49)
--- NOTE | 2019-10-17 12:07 | Cardiology History & Physical ---
HPI-Cardiology Cardiology H&P Date of Admission Primary Care Physician Tone Perez MD Attending Physician Chilango Fernandes MD [facility] Ccds Consulting Physician [id number] Hx Patient Social History Alcohol Use: Denies Use Recreational Drug Use: No Smoking Status: Former Smoker Type Used: Cigarettes 2nd Hand Smoke Exposure: No Recent Foreign Travel: No Immunizations Up To Date Tetanus Booster (TDap): Less than 5yrs Date of Pneumonia Vaccine: May 04, 2016 Date of Influenza Vaccine: May 08, 2019 Past Medical History PMH As described under Assessment. Allergies and Home Medications Allergies Coded Allergies: acetaminophen (Verified Allergy, Unknown, 09/01/17) atorvastatin calcium (Unverified Allergy, Unknown, 07/27/16) cefdinir (Verified Allergy, Unknown, 09/01/17) codeine (Unverified Allergy, Unknown, 07/27/16) doxycycline (Verified Allergy, Unknown, 09/01/17) escitalopram oxalate (Unverified Allergy, Unknown, 07/27/16) niacin (Unverified Allergy, Unknown, 07/27/16) oxycodone (Verified Allergy, Unknown, 09/01/17) simvastatin (Unverified Allergy, Unknown, 07/27/16) tramadol (Unverified Allergy, Unknown, 07/27/16) Home Medications Albuterol Sulfate 0.63 Mg/3 Ml Vial.neb, 0.63 MG IH QID, (Reported) Amitriptyline HCl 25 Mg Tablet, 12.5 MG PO HS PRN for INSOMNIA, (Reported) Aspirin 81 Mg Tab.chew, 81 MG PO DAILY Prescribed by: JENNIFER COTTER on 10/04/18 1527 Bisoprolol Fumarate/Hctz 1 Each Tablet, 1 EACH PO DAILY, (Reported) Clopidogrel Bisulfate 75 Mg Tablet, 1 EACH PO DAILY, (Reported) Doxazosin Mesylate 2 Mg Tablet, 6 MG PO BID, (Reported) Dulaglutide 0.75 Mg/0.5 Ml Pen.injctr, 0.75 MG SQ WEEK, (Reported) Gabapentin 300 Mg Capsule, 300 MG PO BID, (Reported) Glimepiride 4 Mg Tablet, 4 MG PO BID, (Reported) Isosorbide Mononitrate 120 Mg Tab.er.24h, 120 MG PO DAILY, (Reported) Losartan Potassium 100 Mg Tablet, 100 MG PO DAILY, (Reported) Pantoprazole Sodium 40 Mg Tablet., 40 MG PO DAILY, (Reported) Patient Home Medication List Home Medication List Reviewed: Yes Physical Exam-Cardiology Physical Exam Vital Signs/I&O 10/17/19 10/17/19 08:18 12:15 Temp 37.1 Pulse 80 Resp 20 B/P (MAP) 155/68 (97) 155/77 (103) Pulse Ox 96 O2 Delivery Room Air Capillary Refill : Data Review Labs Laboratory Tests 10/17/19 08:05: White Blood Count 12.4H, Red Blood Count 3.29L, Hemoglobin 10.0L, Hematocrit 32L , Mean Corpuscular Volume 97, Mean Corpuscular Hemoglobin 30, Mean Corpuscular Hemoglobin Concent 31L, Red Cell Distribution Width 15.1H, Platelet Count 466H, Mean Platelet Volume 10.0, Prothrombin Time 13.3, INR Comment 1.0, Activated Partial Thromboplast Time 36H, Sodium Level 139, Potassium Level 4.4, Chloride Level 109H, Carbon Dioxide Level 19L, Anion Gap 11, Blood Urea Nitrogen 31H, Creatinine 1.92H, Estimat Glomerular Filtration Rate 25, BUN/Creatinine Ratio 16, Glucose Level 168H, Calcium Level 9.5, Corrected Calcium 9.7, Total Bilirubin 0.4, Aspartate Amino Transf (AST/SGOT) 13, Alanine Aminotransferase (ALT/SGPT) 11, Alkaline Phosphatase 74, Total Protein 6.9, Albumin 3.8, Triglycerides Level 178H, Cholesterol Level 157, LDL Cholesterol Direct 117, VLDL Cholesterol 36, HDL Cholesterol 24L A/P-Cardiology Assessment/Admission Diagnosis Recurrent atypical chest pain possible anginal equivalent Hypertension, uncontrolled Exertional shortness of breath, chronic CAD. H/o cor stents (LAD and diag) with Dr Whitley. Last card cath (10/03/18): m od three vessel disease, 95% instent restenosis treated with PTCA, mild LVEDP elev Echo of 01/11/18: LVEF 60-65%, grade 1 santoyo dysfunction, mild to mod MR, PASP 40 mmHg MPI of 01/11/18: no ischemia or infarction, LVEF 69% CANDICE. H/o bilateral renal artery stents with Dr Whitley. 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
[2019-10-17 12:15] VITALS: BP 155/77
[2019-10-17] MEDS ORDERED: PATIENT MAY USE OWN MEDS, ALL PO SCH (12:15)
--- NOTE | 2019-10-17 12:16 | Cardiology History & Physical ---
HPI-Cardiology Cardiology H&P Date of Admission Primary Care Physician Tone Perez MD Attending Physician Chilango Fernandes MD, MA FACP [facility] FSCAI CCDS Consulting Physician MINO 74 yo woman with known CAD who has been having increasing exertional shortness of breath and midsternal chest heaviness that is reminiscent of previous angina and that occurs several times a week and is relieved with rest No leg swelling or palp or syncope Gen malaise and weakness present Review of Systems-Cardiology Review of Systems Constitutional: malaise, tiredness; No weight loss, No weight gain Eyes: No vision change Ears/Nose/Throat: No ear discharge, No nasal drainage, No recent hearing loss Respiratory: As described under HPI Cardiovascular: As described under HPI Gastrointestinal: No abdominal pain, No diarrhea, No nausea, No vomiting Genitourinary: No dysuria, No hematuria, No urine frequency changes Musculoskeletal: back pain (chronic) Skin: No rash, No ulcerations Psychiatric/Neurological: No seizure, No focal weakness, No syncope Hematologic: No bleeding abnormalities [id number] Hx Patient Social History Alcohol Use: Denies Use Recreational Drug Use: No Smoking Status: Former Smoker Type Used: Cigarettes 2nd Hand Smoke Exposure: No Recent Foreign Travel: No Immunizations Up To Date Tetanus Booster (TDap): Less than 5yrs Date of Pneumonia Vaccine: May 04, 2016 Date of Influenza Vaccine: May 08, 2019 Past Medical History PMH As described under Assessment. Family Medical History Family Medical History: Does not eport fam h/o early CAD Allergies and Home Medications Allergies Coded Allergies: acetaminophen (Verified Allergy, Unknown, 09/01/17) atorvastatin calcium (Unverified Allergy, Unknown, 07/27/16) cefdinir (Verified Allergy, Unknown, 09/01/17) codeine (Unverified Allergy, Unknown, 07/27/16) doxycycline (Verified Allergy, Unknown, 09/01/17) escitalopram oxalate (Unverified Allergy, Unknown, 07/27/16) niacin (Unverified Allergy, Unknown, 07/27/16) oxycodone (Verified Allergy, Unknown, 09/01/17) simvastatin (Unverified Allergy, Unknown, 07/27/16) tramadol (Unverified Allergy, Unknown, 07/27/16) Home Medications Albuterol Sulfate 0.63 Mg/3 Ml Vial.neb, 0.63 MG IH QID, (Reported) Amitriptyline HCl 25 Mg Tablet, 12.5 MG PO HS PRN for INSOMNIA, (Reported) Aspirin 81 Mg Tab.chew, 81 MG PO DAILY Prescribed by: JENNIFER COTTER on 10/04/18 1527 Bisoprolol Fumarate/Hctz 1 Each Tablet, 1 EACH PO DAILY, (Reported) Clopidogrel Bisulfate 75 Mg Tablet, 1 EACH PO DAILY, (Reported) Doxazosin Mesylate 2 Mg Tablet, 6 MG PO BID, (Reported) Dulaglutide 0.75 Mg/0.5 Ml Pen.injctr, 0.75 MG SQ WEEK, (Reported) Gabapentin 300 Mg Capsule, 300 MG PO BID, (Reported) Glimepiride 4 Mg Tablet, 4 MG PO BID, (Reported) Isosorbide Mononitrate 120 Mg Tab.er.24h, 120 MG PO DAILY, (Reported) Losartan Potassium 100 Mg Tablet, 100 MG PO DAILY, (Reported) Pantoprazole Sodium 40 Mg Tablet.dr, 40 MG PO DAILY, (Reported) Patient Home Medication List Home Medication List Reviewed: Yes Physical Exam-Cardiology Physical Exam Vital Signs/I&O 10/17/19 08:18 Temp 37.1 Pulse 80 Resp 20 B/P (MAP) 155/68 (97) Pulse Ox 96 O2 Delivery Room Air Capillary Refill : Constitutional: AAO x 3, well-developed, well-nourished HEENT: EOMI, hearing is well preserved; No xanthelasmas are seen Neck: carotid pulses are 2 + bilaterally Respiratory: No accessory muscle use; other (fair air entry, prolonged exp phase, scattered wheezes) Cardiovascular: regular rate-rhythm, S1 and S2, systolic murmur (soft MISAEL at card base) Gastrointestinal: No tender; soft; No guarding, No rebound; audible bowel sounds Extremities: No clubbing, No cyanosis, No significant edema Neurologic/Psychiatric: oriented x 3, other (moves all limbs equally) Skin: No rash on exposed areas, No ulcerations on exposed areas Data Review Labs Laboratory Tests 10/17/19 08:05: White Blood Count 12.4H, Red Blood Count 3.29L, Hemoglobin 10.0L, Hematocrit 32L , Mean Corpuscular Volume 97, Mean Corpuscular Hemoglobin 30, Mean Corpuscular Hemoglobin Concent 31L, Red Cell Distribution Width 15.1H, Platelet Count 466H, Mean Platelet Volume 10.0, Prothrombin Time 13.3, INR Comment 1.0, Activated Partial Thromboplast Time 36H, Sodium Level 139, Potassium Level 4.4, Chloride Level 109H, Carbon Dioxide Level 19L, Anion Gap 11, Blood Urea Nitrogen 31H, Creatinine 1.92H, Estimat Glomerular Filtration Rate 25, BUN/Creatinine Ratio 16, Glucose Level 168H, Calcium Level 9.5, Corrected Calcium 9.7, Total Bilirubin 0.4, Aspartate Amino Transf (AST/SGOT) 13, Alanine Aminotransferase (ALT/SGPT) 11, Alkaline Phosphatase 74, Total Protein 6.9, Albumin 3.8, Triglycerides Level 178H, Cholesterol Level 157, LDL Cholesterol Direct 117, VLDL Cholesterol 36, HDL Cholesterol 24L Laboratory Tests 10/17/19 08:05 A/P-Cardiology Assessment/Admission Diagnosis Recurrent chest discomfort suggestive of recurrent angina treated 09/16/19 with PCI (see below) CAD. H/o cor stents (LAD and RCA) with Dr Whitley several years ago. Cath on 10/14/18: mod three vessel disease, 95% instent restenosis treated with PTCA. Cath on 10/17/19: 70% instent restenosis of LAD with FFR 0.8 treated with PTCA with NC [place] 3.5 x 15; LCX approx 50 prox-mid followed by 70% mid-distal with FFR 0.89 (not intervened on); patent distal stent in dominant RCA; LVEDP 14; LV gram not done to conserve contrast (total contrast used 37 ml) Hypertension Intolerant to statin Echo of 01/11/18: LVEF 60-65%, grade 1 santoyo dysfunction, mild to mod MR, PASP 40 mmHg CANDICE. H/o bilateral renal artery stents with Dr Whitley. 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 aircraft tool maker Dr Ramirez Chronic back pain Chronic tobacco use, quit in 2011 COPD AUDIE, treated with CPAP Myeloproliferative disorder with leuckocytosis and thrombocytosis and chronic anemia, managed by Dr Gramajo Mild carotid art disease on carotid u/s of 02/18/18 Chronic back pain and cervical radiculopathy, followed and treated by her spine surgeon Bilat leg swelling due to venous insuff and, possibly, CCB therapy Multinodular thyroid goiter, followed by her oncologist Admission Status: Observation Discussion and Recomendations * I had a detailed discussion with her and her regarding cath findings and interventions undertaken * Advised to refrain from tobacco * Advised compliance with meds * Continue fluids overnight to reduce risk of contrast nephropathy * Repeat labs tomorrow and prob d/c tomorrow CHILANGO FERNANDES MD FACP FACC CCDS Oct 17, 2019 12:16
[2019-10-17] MEDS ORDERED: AMITRIPTYLINE 25 MG (ELAVIL) TAB PO PRN (12:30)
[2019-10-17] MEDS ORDERED: NON-FORMULARY MEDICATION 1 EA EA (Dulaglutide (Trulicity) 0.75 MG) SQ SCH (12:30)
[2019-10-17] MEDS ORDERED: NON-FORMULARY MEDICATION 1 EA EA (Albuterol Sulfate 0.63 MG) IH SCH (13:00)
[2019-10-17] MEDS: NS IV 1000 ML 1,000 ML IV SCH ×2 (13:08→20:26)
--- NOTE | 2019-10-17 13:51 | CARDIAC CATHETERIZATION ---
DATE OF SERVICE: 10/17/2019 CARDIAC CATHETERIZATION AND CORONARY INTERVENTION REPORT The patient is a 74-year-old lady with known coronary artery disease, who has had stenting to the left anterior descending and the right coronary in [place], [place], several years ago. She has had recurrent symptoms of chest discomfort consistent with recurrent angina. Cardiac catheterization was carried out today after having obtained an informed consent for cardiac catheterization and possible ad hoc coronary intervention. Prior to initiation of the procedure, she was vigorously hydrated. This was continued during the procedure and afterwards. This was to reduce risk of contrast nephropathy, given her baseline renal insufficiency. She was fully aware of her additional risk of contrast nephropathy and provided informed consent. DESCRIPTION OF PROCEDURE: She was brought to the cardiac catheterization laboratory. Right groin was prepared and draped in the usual sterile fashion. A 1% lidocaine was used for local anesthesia. Modified Seldinger technique was used to advance a 5-Malian sheath in right femoral artery. A 5-Malian JL4 catheter for left coronary angiography, 5-Malian JR4 catheter was used for right coronary angiography. A 5-Malian pigtail catheter was used for left heart catheterization and left heart catheterization. Left ventricular angiography was not performed. This was to conserve contrast, given the patient's renal insufficiency. The pigtail catheter was pulled back and removed. FRACTIONAL FLOW RESERVE MEASUREMENT IN THE LEFT CIRCUMFLEX: Following completion of the diagnostic angiography, we proceeded with FFR of suspicious lesions. The left circumflex that was exhibiting 50% stenosis in its proximal to mid portion and 70% stenosis at its mid to distal portion. We exchanged the sheath over a wire for a 6-Malian sheath. We used a 6-Malian JL4 guide catheter. We advanced a pressure wire across the lesion and the tip was placed in the distal vessel. A 140 mcg per kilogram of adenosine was given over 2-1/2 minutes. Fractional flow reserve was 0.89 across both lesions, indicating hemodynamic insignificance. Accordingly, intervention to these lesions was not carried out. FRACTIONAL FLOW RESERVE MEASUREMENT IN THE LEFT ANTERIOR DESCENDING: Left anterior descending artery was exhibiting approximately 70% in-stent restenosis in the proximally placed stent. There was also moderate bifurcation disease in the distal left anterior descending. We carried out fractional flow reserve measurement across a lesion in the stented segment of the left anterior descending. The fractional flow reserve was 0.8. This, along with the patient's symptoms, showed that the lesion was significant. We carried out balloon angioplasty to this lesion as described below. PERCUTANEOUS INTERVENTION TO THE LEFT ANTERIOR DESCENDING: The left anterior descending artery has a long stented segment in its proximal portion. It was exhibiting 70% stenosis and fractional flow reserve was 0.7. We advanced NC Quantum balloon (3.5 x 15 mm) to the lesion and balloon inflations were carried out to 20 atmospheres. This reduced the stenosis to less than 10% residual and flow throughout the vessel was normal. The patient tolerated the procedure well. Angioplasty equipment was removed. Angiography of the right femoral artery was carried out through the sheath. Mynx was used to achieve hemostasis. HEMODYNAMICS: Left ventricular end-diastolic pressure following coronary angiography was 14 mmHg. There was no significant pressure gradient on pullback across the aortic valve. The ascending aortic pressure was 141/55 mmHg. CORONARY ANGIOGRAPHY: Left main coronary artery does not exhibit significant obstructive disease. Left anterior descending artery has a long stented segment with 70% mid vessel stenosis to which successful balloon angioplasty was carried out, which reduced the stenosis to less than 10%. Distally, left anterior descending exhibits approximately 50% stenosis at its bifurcation with a diagonal. The left circumflex artery had a 50% stenosis in its proximal to mid portion and 70% stenosis in its mid to distal portion. Fractional flow reserve across the combination of these lesions was 0.89, indicating hemodynamic insignificance. Right coronary artery is dominant and had a widely patent stent in its distal portion. The right coronary artery had mild to moderate diffuse plaque. CONCLUSIONS: 1. Coronary artery disease consisting primarily of 70% in-stent restenosis of the left anterior descending (fractional flow reserve 0.8). To this, successful balloon angioplasty was carried out. The left anterior descending has approximately 50% bifurcation stenosis. The left circumflex artery has a 50% stenosis in its proximal to mid portion and 70% stenosis in its mid to distal portion and fractional flow reserve across a combination of these lesions is 0.89, indicating hemodynamic insignificance. Right coronary artery is dominant and has a patent stent in its distal portion. The right coronary artery has mild to moderate diffuse disease. 2. Mildly elevated left ventricular end-diastolic pressure. DISCUSSION AND RECOMMENDATIONS: Based on results of those studies and interventions, we are continuing the patient's beta blockers and dual antiplatelet therapy. Statins are advised, but she is intolerant to statins. We have advised her to refrain from tobacco use. Outpatient followup is advised. Kilo ID: [id number] DocumentID: [id number] Dictated Date: 10/17/2019 12:43:25 Supervisor Stave Finishing Date: 10/17/2019 13:50:49 Dictated By: CHRISTY ESQUIVEL MD, MA, FACP, FACC, MTDD
--- NOTE | 2019-10-17 14:20 | Discharge Inst-Cardiology ---
Discharge Inst-Cardiac Discharge Medications Continued Medications: Albuterol Sulfate (Albuterol Sulfate) 0.63 Mg/3 Ml Vial.neb 0.63 MG IH QID, INHALER Amitriptyline HCl (Amitriptyline HCl) 25 Mg Tablet 12.5 MG PO HS PRN for INSOMNIA, TAB Aspirin (Aspirin) 81 Mg Tab.chew 81 MG PO DAILY, #30 TAB Bisoprolol Fumarate/Hctz (Bisoprolol-Hctz 10-6.25 mg Tab) 1 Each Tablet 1 EACH PO DAILY, TAB Clopidogrel Bisulfate (Plavix 75 Mg) 75 Mg Tablet 1 EACH PO DAILY Doxazosin Mesylate (Doxazosin Mesylate) 2 Mg Tablet 6 MG PO BID, TAB Dulaglutide (Trulicity) 0.75 Mg/0.5 Ml Pen.injctr 0.75 MG SQ WEEK, VIAL Gabapentin (Gabapentin) 300 Mg Capsule 300 MG PO BID, CAP Glimepiride (Glimepiride) 4 Mg Tablet 4 MG PO BID, TAB Isosorbide Mononitrate (Isosorbide Mononitrate ER) 120 Mg Tab.er.24h 120 MG PO DAILY, TAB Losartan Potassium (Losartan Potassium) 100 Mg Tablet 100 MG PO DAILY, TAB Pantoprazole Sodium (Pantoprazole Sodium) 40 Mg Tablet.dr 40 MG PO DAILY, TAB Patient Instructions Patient Instructions: Please schedule follow up appointment to see Dr. Fernandes in 2 weeks JENNIFER COTTER Oct 17, 2019 14:20
--- NOTE | 2019-10-17 14:45 | Discharge Inst-Cardiology ---
Discharge Inst-Cardiac Discharge Medications Continued Medications: Albuterol Sulfate (Albuterol Sulfate) 0.63 Mg/3 Ml Vial.neb 0.63 MG IH QID, INHALER Amitriptyline HCl (Amitriptyline HCl) 25 Mg Tablet 12.5 MG PO HS PRN for INSOMNIA, TAB Aspirin (Aspirin) 81 Mg Tab.chew 81 MG PO DAILY, #30 TAB Bisoprolol Fumarate/Hctz (Bisoprolol-Hctz 10-6.25 mg Tab) 1 Each Tablet 1 EACH PO DAILY, TAB Clopidogrel Bisulfate (Plavix 75 Mg) 75 Mg Tablet 1 EACH PO DAILY Doxazosin Mesylate (Doxazosin Mesylate) 2 Mg Tablet 6 MG PO BID, TAB Dulaglutide (Trulicity) 0.75 Mg/0.5 Ml Pen.injctr 0.75 MG SQ WEEK, VIAL Gabapentin (Gabapentin) 300 Mg Capsule 300 MG PO BID, CAP Glimepiride (Glimepiride) 4 Mg Tablet 4 MG PO BID, TAB Isosorbide Mononitrate (Isosorbide Mononitrate ER) 120 Mg Tab.er.24h 120 MG PO DAILY, TAB Losartan Potassium (Losartan Potassium) 100 Mg Tablet 100 MG PO DAILY, TAB Pantoprazole Sodium (Pantoprazole Sodium) 40 Mg Tablet.dr 40 MG PO DAILY, TAB CHRISTY ESQUIVEL MD FACP FAC CCDS Oct 17, 2019 14:45
--- NOTE | 2019-10-17 14:45 | Discharge Inst-Post CATH ---
Discharge Inst-CATH/EP Post Cardiac Cath/EP D/C Inst Follow Up/Plan F/u with Dr Fernandes in 1-2 weeks <b>CARDIAC CATH/EP PROCEDURE DISCHARGE INSTRUCTIONS</b> ACTIVITY * Go Home directly and rest. * Limit activity of the leg (or wrist if it was used) for 7 days including aerobics, swimming, jogging, bicycling, etc. * Restrict stair-climbing for 7 days if possible, if not, climb up with your non-cath leg, then bring together on the same step. * Avoid lifting, pushing, pulling or excessive movement of the affected extremity for 7 days. * Customary sexual activity may be resumed after 2 days-use caution not to use a position that strains or causes pain to the affected extremity. * No driving for 24 hours. * NO SMOKING. * Avoid straining for bowel movements for 7 days. * Gentle walking on level ground is allowed. * Returning to work will depend on the type of procedure and the results. Your doctor will discuss this with you. CALL YOUR DOCTOR FOR ANY OF THE FOLLOWING: *If bleeding from the puncture site occurs- Apply gentle pressure to site with clean cloth and call your doctor or EMS. * If a knot or lump forms under the skin, increases in size, or causes pain. * If bruising appears to be worsening or moving further down your leg instead of disappearing. * Temperature above 101 F. CARE OF YOUR GROIN INCISION; * Bruising or purple discoloration of the skin near the puncture site is common. * You may shower only, no bathtub bathing for 5 days. Be careful to avoid slipping as your leg may feel stiff. * If a closure device was used on your femoral artery, please see the attached guide regarding care of the device and your leg. * Leave dressing on FOR 24 hours. CARE OF YOUR WRIST INCISION; * Bruising or purple discoloration of the skin near the puncture site is common. * You may shower. * DO NOT submerge wrist. * Leave dressing on FOR 24 hours. CHRISTY FERNANDES MD FACP FAC CCDS Oct 17, 2019 14:45
[2019-10-17 15:00] VITALS: BP 169/75
[2019-10-17] MEDS ORDERED: RT-ALBUTEROL SULF 2.5 MG/3 ML PRE-MIX VIAL IH SCH (15:00)
[2019-10-17] MEDS: GLIMEPIRIDE 4 MG (AMARYL) TAB PO SCH (15:44)
[2019-10-17 16:02] VITALS: BP 174/81
--- NOTE | 2019-10-17 19:45 | NUR ---
SPOKE TO VIBRATING SCREEN OPERATOR RETORT OPERATOR DR. HILL. INFORMED HIM PT HAS TEMP OF 101.5. TELEPHONE ORDER RECEIVED TO CONSULT HOSPITALIST FOR MEDICAL MANAGEMENT.
[2019-10-17 20:00] VITALS: BP 186/73
--- NOTE | 2019-10-17 20:00 | NUR ---
SPOKE WITH DR. HUNT AND INFORMED HER OF NEW CONSULT PER DR. HILL. INFORMED DR. HUNT THAT PT CURRENTLY HAS A TEMP OF 101.5 AND PT STILL COMPLAINING OF SOB ON EXERTION POST CATH PROCEDURE TODAY. TELEPHONE ORDERS RECEIVED FOR TYLENOL 650MG Q6HRS PRN. INFORMED DR. HUNT THAT PT HAS ACETAMINOPHEN LISTED ALLERGY. CLARIFIED WITH PT THAT SHE IS NOT ALLERGIC TO TYLENOL THAT SHE HAD TAKEN TYLENOL WITH CODEINE IN THE PAST AND IT MADE HER ITCH. OK PER DR. HUNT TO GIVE TYLENOL AND REMOVE FROM ALLERGY LIST.
[2019-10-17] MEDS ORDERED: ACETAMINOPHEN 325 MG TABLET ONE ×2 (20:08→20:13)
[2019-10-17] MEDS: doxAzosin 2 MG (CARDURA) TAB PO SCH (20:25)
[2019-10-17] MEDS: GABAPENTIN 300 MG (NEURONTIN) CAP PO SCH (20:26)
[2019-10-17] MEDS ORDERED: ACETAMINOPHEN 325 MG TABLET PO PRN (20:30)
[2019-10-17] MEDS: RT-ALBUTEROL SULF 2.5 MG/3 ML PRE-MIX VIAL IH SCH (21:06)
[2019-10-18] VITALS: BP 151/69
[2019-10-18 03:23] LABS: HEMOGLOBIN 9.3 G/DL (11.5-16.0); MEAN PLATELET VOLUME 10.2 FL (7.4-10.4); RED CELL DISTRIBUTION WIDTH 14.8 % (10.0-14.5); WHITE BLOOD COUNT 12.2 10^3/uL (4.3-11.0)
[2019-10-18 03:42] LABS: CREATININE SERUM 1.66 MG/DL (0.60-1.30)
[2019-10-18 03:43] VITALS: BP 164/78
--- NOTE | 2019-10-18 04:54 | Pulmonary Consultation ---
History of Present Illness History of Present Illness Date Seen by Provider: Oct 18, 2019 Time Seen by Provider: 04:49 Date of Admission History of Present Illness 74yo with hx of CAD, COPD, DM presented secondary to worsening SOB and midsternal CP. Pt states she has been having night sweats. Pt states she had family over for [employer] and has been going to [employer]. Fever through the night has been 103. Pt was given tylenol and fever went down with Tylenol. Currently no CXR. Allergies and Home Medications Allergies Coded Allergies: atorvastatin calcium (Unverified Allergy, Unknown, 07/27/16) cefdinir (Verified Allergy, Unknown, 09/01/17) codeine (Unverified Allergy, Unknown, 07/27/16) doxycycline (Verified Allergy, Unknown, 09/01/17) escitalopram oxalate (Unverified Allergy, Unknown, 07/27/16) niacin (Unverified Allergy, Unknown, 07/27/16) oxycodone (Verified Allergy, Unknown, 09/01/17) simvastatin (Unverified Allergy, Unknown, 07/27/16) tramadol (Unverified Allergy, Unknown, 07/27/16) acetaminophen (Verified Adverse Reaction, Mild, 10/17/19) TYLENOL WITH CODEINE MAKE PT ITCH. Home Medications Albuterol Sulfate 0.63 Mg/3 Ml Vial.neb, 0.63 MG IH QID, (Reported) Amitriptyline HCl 25 Mg Tablet, 12.5 MG PO HS PRN for INSOMNIA, (Reported) Aspirin 81 Mg Tab.chew, 81 MG PO DAILY Prescribed by: JENNIFER COTTER on 10/04/18 1527 Bisoprolol Fumarate/Hctz 1 Each Tablet, 1 EACH PO DAILY, (Reported) Clopidogrel Bisulfate 75 Mg Tablet, 1 EACH PO DAILY, (Reported) Doxazosin Mesylate 2 Mg Tablet, 6 MG PO BID, (Reported) Dulaglutide 0.75 Mg/0.5 Ml Pen.injctr, 0.75 MG SQ WEEK, (Reported) Gabapentin 300 Mg Capsule, 300 MG PO BID, (Reported) Glimepiride 4 Mg Tablet, 4 MG PO BID, (Reported) Isosorbide Mononitrate 120 Mg Tab.er.24h, 120 MG PO DAILY, (Reported) Losartan Potassium 100 Mg Tablet, 100 MG PO DAILY, (Reported) Pantoprazole Sodium 40 Mg Tablet., 40 MG PO DAILY, (Reported) Past Bosvqxc-Bzrher-Eqjxby Hx Patient Social History Alcohol Use: Denies Use Recreational Drug Use: No Smoking Status: Former Smoker Type Used: Cigarettes Former Smoker, Quit: Aug 15, 2012 2nd Hand Smoke Exposure: No Recent Foreign Travel: No Contact w/Someone Who Travel: No Recent Hopitalizations: No Immunizations Up To Date Tetanus Booster (TDap): Less than 5yrs PED Vaccines UTD: No Date of Pneumonia Vaccine: May 04, 2016 Date of Influenza Vaccine: May 08, 2019 Seasonal Allergies Seasonal Allergies: No Past Medical History Surgeries: No Bladder Surgery, Gallbladder, Hysterectomy, Orthopedic, Tonsillectomy Respiratory: Yes Sleep Apnea, COPD Currently Using CPAP: Yes Cardiac: Yes Coronary Artery Disease, High Cholesterol, Hypertension Neurological: No Reproductive Disorders: No Female Reproductive Disorders: Denies Sexually Transmitted Disease: No HIV/AIDS: No Genitourinary: Yes (INCONT) Gastrointestinal: Yes Chronic Diarrhea, Polyps Musculoskeletal: Yes (, CERVICAL STENOSIS) Fibromyalgia Endocrine: Yes (history of thyroid nodules) Adrenal Disease, Diabetes, Non-Insulin dep Loss of Vision: Bilateral Hearing Impairment: Hard of Hearing Psychosocial: No Integumentary: No Blood Disorders: Yes (ANEMIA, POSSIBLE EARLY LEUKEMIA) Adverse Reaction/Blood Tranf: No Family Medical History No Pertinent Family Hx Review of Systems Time Seen by Provider: 04:54 Constitutional: Chills, Sweats, Weakness, Malaise, Other; No: Fever Eyes: No: Pain, Vision change, Conjunctivae inflammation, Eyelid inflammation, Other, Redness ENT: No: Ear pain, Ear discharge, Nose pain, Nose discharge, Nose congestion, Mouth pain, Mouth swelling, Throat pain, Throat swelling, Other Sepsis Event Evaluation Height, Weight, BMI Height: 5'2.00" Weight: 166lbs. 6.0oz. 75.601785tj; 29.83 BMI Method:Stated Exam Exam Vital Signs Date Time Temp Pulse Resp B/P (MAP) Pulse Ox O2 Delivery O2 Flow Rate FiO2 10/18/19 03:43 75 17 164/78 (106) 97 Nasal Cannula 2.00 10/18/19 00:48 70 10/18/19 00:00 87 20 151/69 (96) 94 Nasal Cannula 2.00 10/17/19 23:44 36.6 10/17/19 21:07 91 Room Air 10/17/19 20:23 38.7 10/17/19 20:00 38.7 10/17/19 20:00 37.5 86 17 186/73 (110) 93 10/17/19 19:30 Room Air 10/17/19 19:00 84 10/17/19 16:02 65 56 174/81 (112) 96 10/17/19 15:00 57 44 169/75 (106) 94 10/17/19 12:30 63 10/17/19 12:15 155/77 (103) 10/17/19 08:18 37.1 80 20 155/68 (97) 96 Room Air I & O 10/18/19 07:00 Intake Total 900 ml Output Total 450 ml Balance 450 ml Height & Weight Height: 5'2.00" Weight: 166lbs. 6.0oz. 75.434138ct; 29.83 BMI Method:Stated Capillary Refill: Less Than 3 Seconds Results Lab Laboratory Tests 10/17/19 08:05 10/18/19 02:53 Assessment/Plan Assessment/Plan CAD s/p Cath Fever -Tm 103 last night -Check CXR -Check Razo cultures -Influenza -Start Zosyn -MRSA swab -RVP -Check CBC with diff, CMP, ferritin, and ddimer -start Zoysn Possible tooth abscess -Pt states she has a tooth that needs pulled DM COPD hx -Albuterol INH -ARGENIS Alfonso DO Oct 18, 2019 04:54
[2019-10-18 05:02] LABS: BASOPHILS % (AUTO) 0 % (0-10); EOSINOPHILS # (AUTO) 0.3 10^3/uL (0.0-0.3); EOSINOPHILS % (AUTO) 2 % (0-10); HEMATOCRIT 31 % (35-52); HEMOGLOBIN 9.6 G/DL (11.5-16.0); LYMPHOCYTES # (AUTO) 1.3 X 10^3 (1.0-4.0); LYMPHOCYTES % (AUTO) 11 % (12-44); MEAN CORPUSCULAR HEMOGLOBIN 31 PG (25-34); MEAN CORPUSCULAR HGB CONC 32 G/DL (32-36); MEAN CORPUSCULAR VOLUME 97 FL (80-99); MEAN PLATELET VOLUME 9.8 FL (7.4-10.4); MONOCYTES # (AUTO) 0.9 X 10^3 (0.0-1.0); MONOCYTES % (AUTO) 7 % (0-12); NEUTROPHILS # (AUTO) 9.7 X 10^3 (1.8-7.8); NEUTROPHILS % (AUTO) 80 % (42-75); PLATELET COUNT 420 10^3/uL (130-400); RED CELL DISTRIBUTION WIDTH 14.7 % (10.0-14.5); WHITE BLOOD COUNT 12.2 10^3/uL (4.3-11.0)
[2019-10-18 05:09] LABS: ALBUMIN 3.4 GM/DL (3.2-4.5); POTASSIUM 4.7 MMOL/L (3.6-5.0)
[2019-10-18 05:10] LABS: CALCIUM 9.1 MG/DL (8.5-10.1)
[2019-10-18 05:11] LABS: TOTAL PROTEIN 6.1 GM/DL (6.4-8.2)
[2019-10-18 05:13] LABS: BILIRUBIN,TOTAL 0.5 MG/DL (0.1-1.0)
[2019-10-18 05:14] LABS: PHOSPHORUS 3.1 MG/DL (2.3-4.7)
[2019-10-18 05:15] LABS: CREATININE SERUM 1.68 MG/DL (0.60-1.30)
[2019-10-18] MEDS ORDERED: PIPERACILLIN/TAZOBACTAM (BULK) 4.5 GM in NS (IVPB) 100 ML IV SCH (05:15)
[2019-10-18 05:17] LABS: MAGNESIUM 1.6 MG/DL (1.6-2.4)
[2019-10-18] MEDS ORDERED: ISOSORBIDE MONONITRATE 60 MG (IMDUR) TAB PO SCH (06:30)
--- NOTE | 2019-10-18 06:40 | Diagnostic Imaging Report ---
INDICATION: Shortness of breath COMPARISON: None FINDINGS: Single view of the chest demonstrates clear lungs bilaterally. The heart is normal. There is no pneumothorax. The osseous structures are normal. IMPRESSION: Negative chest Dictated by: Dictated on workstation # [id number]
[2019-10-18 07:30] LABS: ABG BASE EXCESS -4.2 MMOL/L (-2.5-2.5); ABG OXYGEN SATURATION 93 % (94-100); ABG PCO2 32 MMHG (35-45); ABG PO2 66 MMHG (79-93); ABG TCO2 20.7 MMOL/L (21.0-31.0)
[2019-10-18 07:32] LABS: ALLENS TEST YES-POS; INSPIRED O2 RA; PATIENT TEMP 36.9; VENTILATOR NO
[2019-10-18] MEDS: RT-ALBUTEROL SULF 2.5 MG/3 ML PRE-MIX VIAL IH SCH ×4 (07:36→18:38)
[2019-10-18] MEDS: ADVAIR HFA 115/21 MCG INHALER 8 GM IH SCH ×2 (07:58→18:38)
[2019-10-18] MEDS: RT-ALBUTEROL HFA (PROAIR HFA) 8.5 GM IH SCH ×3 (07:59→15:09)
[2019-10-18 08:24] LABS: BILIRUBIN,URINE NEGATIVE (NEGATIVE); CLARITY,URINE SL CLOUDY; COLOR,URINE YELLOW; GLUCOSE, URINE (UA) NEGATIVE (NEGATIVE); KETONES,URINE NEGATIVE (NEGATIVE); LEUKOCYTE ESTERASE ,URINE 3+ (NEGATIVE); NITRITE,URINE NEGATIVE (NEGATIVE); PH,URINE 5.5 (5-9); PROTEIN,URINE NEGATIVE (NEGATIVE)
[2019-10-18 08:37] LABS: BACTERIA,URINE LARGE /HPF; RBC,URINE RARE /HPF; SQUAMOUS EPITHELIAL CELL,UR RARE /HPF; WBC,URINE 25-50 /HPF
[2019-10-18] MEDS: PANTOPRAZOLE 40 MG (PROTONIX) TAB PO SCH (09:00)
[2019-10-18] MEDS: doxAzosin 2 MG (CARDURA) TAB PO SCH ×2 (09:00→22:02)
[2019-10-18] MEDS ORDERED: BISOPROLOL 5 MG TAB (ZEBETA) PO SCH (09:00)
[2019-10-18] MEDS ORDERED: NON-FORMULARY MEDICATION 1 EA EA (Isosorbide Mononitrate (Isosorbide Mononitrate ER) 120 M PO SCH (09:00)
[2019-10-18] MEDS: ISOSORBIDE MONONITRATE 120 MG PO SCH (09:00)
[2019-10-18] MEDS ORDERED: BISOPROLOL FUMARATE PO SCH (09:00)
[2019-10-18] MEDS ORDERED: [UNRECOGNIZED DRUG - OTHER] PO SCH (09:00)
[2019-10-18] MEDS ORDERED: HCTZ PO SCH (09:00)
[2019-10-18] MEDS ORDERED: BISOPROLOL/HCTZ 5/6.25 MG (ZIAC) TAB PO SCH (09:00)
[2019-10-18] MEDS ORDERED: ASPIRIN 81 MG CHEW (CHILDREN'S ASA) PO SCH (09:00)
[2019-10-18] MEDS: PIPERACILLIN/TAZOBACTAM (BULK) 4.5 GM in NS (IVPB) 100 ML IV SCH ×2 (09:01→16:30)
[2019-10-18] MEDS: GABAPENTIN 300 MG (NEURONTIN) CAP PO SCH ×2 (09:01→22:02)
[2019-10-18] MEDS: ASPIRIN E.C. 81 MG (ECOTRIN) TAB PO SCH (09:02)
[2019-10-18] MEDS: GLIMEPIRIDE 4 MG (AMARYL) TAB PO SCH ×2 (09:02→15:11)
[2019-10-18] MEDS: CLOPIDOGREL 75 MG (PLAVIX) TABLET PO SCH (09:02)
[2019-10-18] MEDS: HCTZ PO SCH (09:03)
[2019-10-18] MEDS: LOSARTAN 100 MG (COZAAR) TABLET PO SCH (09:03)
[2019-10-18] MEDS: BISOPROLOL PO SCH (09:03)
[2019-10-18 11:45] VITALS: BP 120/85
[2019-10-18 16:00] VITALS: BP 157/85
--- NOTE | 2019-10-18 16:57 | Diagnostic Imaging Report ---
PROCEDURE: US Venous Lower Ext Lance. TECHNIQUE: Multiple real-time grayscale images were obtained over the lower extremities in various projections, bilaterally. Additional duplex Doppler and color Doppler images were also obtained. INDICATION: Elevated d-dimer EXAMINATIONS: Both grayscale and color Doppler imaging of the deep veins of the lower extremities were performed with waveform analysis. FINDINGS: There is no intraluminal filling defect. Normal continuous flow is seen throughout the deep venous systems of both legs, and there is normal response to augmentation. The deep veins compress normally. IMPRESSION: No ultrasound evidence of deep venous thrombosis in either lower extremity. Dictated by: Dictated on workstation # [id number]
[2019-10-18 20:00] VITALS: BP 149/67
[2019-10-19 01:08] VITALS: BP 181/78
[2019-10-19] MEDS: PIPERACILLIN/TAZOBACTAM (BULK) 4.5 GM in NS (IVPB) 100 ML IV SCH ×2 (01:16→08:22)
[2019-10-19 03:00] LABS: BASOPHILS % (AUTO) 0 % (0-10); EOSINOPHILS # (AUTO) 0.3 10^3/uL (0.0-0.3); EOSINOPHILS % (AUTO) 2 % (0-10); HEMATOCRIT 29 % (35-52); HEMOGLOBIN 9.3 G/DL (11.5-16.0); LYMPHOCYTES # (AUTO) 1.4 X 10^3 (1.0-4.0); LYMPHOCYTES % (AUTO) 12 % (12-44); MEAN CORPUSCULAR HEMOGLOBIN 31 PG (25-34); MEAN CORPUSCULAR HGB CONC 32 G/DL (32-36); MEAN CORPUSCULAR VOLUME 96 FL (80-99); MEAN PLATELET VOLUME 9.8 FL (7.4-10.4); MONOCYTES % (AUTO) 8 % (0-12); NEUTROPHILS # (AUTO) 9.2 X 10^3 (1.8-7.8); NEUTROPHILS % (AUTO) 78 % (42-75); PLATELET COUNT 412 10^3/uL (130-400); RED CELL DISTRIBUTION WIDTH 15.1 % (10.0-14.5); WHITE BLOOD COUNT 11.9 10^3/uL (4.3-11.0)
[2019-10-19 03:25] LABS: CALCIUM 9.3 MG/DL (8.5-10.1); CREATININE SERUM 1.86 MG/DL (0.60-1.30); MAGNESIUM 1.7 MG/DL (1.6-2.4); PHOSPHORUS 3.1 MG/DL (2.3-4.7); POTASSIUM 4.1 MMOL/L (3.6-5.0)
--- NOTE | 2019-10-19 05:33 | Pulmonary Progress Note ---
Subjective Time Seen by a Provider: 05:32 Subjective/Events-last exam Denies CP, or SOB currently Sepsis Event Evaluation Height, Weight, BMI Height: 5'2.00" Weight: 166lbs. 6.0oz. 75.141595nw; 29.83 BMI Method:Stated Focused Exam Lactate Level 10/18/19 06:50: Lactic Acid Level 0.86 Exam Exam Vital Signs Date Time Temp Pulse Resp B/P (MAP) Pulse Ox O2 Delivery O2 Flow Rate FiO2 10/19/19 01:08 37.2 82 18 181/78 (112) 92 Room Air 10/19/19 01:00 80 10/18/19 21:00 Room Air 10/18/19 20:00 37.7 79 20 149/67 (94) 91 Room Air 10/18/19 19:00 80 10/18/19 18:39 95 Room Air 10/18/19 16:00 36.7 10/18/19 16:00 77 24 157/85 (109) 94 Room Air 10/18/19 15:10 93 Room Air 10/18/19 12:31 73 10/18/19 11:45 70 56 120/85 (97) 94 Nasal Cannula 2.00 10/18/19 11:08 94 Room Air 10/18/19 09:00 Room Air 10/18/19 08:09 92 Room Air 10/18/19 08:06 92 Room Air 10/18/19 08:00 36.6 10/18/19 06:45 78 I & O 10/19/19 07:00 Intake Total 1020 ml Balance 1020 ml Height & Weight Height: 5'2.00" Weight: 166lbs. 6.0oz. 75.627150ud; 29.83 BMI Method:Stated General Appearance: No Apparent Distress, WD/WN HEENT: PERRL/EOMI, Normal ENT Inspection, Pharynx Normal Neck: Full Range of Motion, Non Tender, Supple Respiratory: Chest Non Tender, Lungs Clear, Normal Breath Sounds, No Accessory Muscle Use, No Respiratory Distress Cardiovascular: Regular Rate, Rhythm, No Edema, No Gallop Capillary Refill: Less Than 3 Seconds Gastrointestinal: normal bowel sounds, non tender, soft Extremity: Normal Capillary Refill, Normal Inspection, No Pedal Edema Neurologic/Psychiatric: Alert, Oriented x3 Skin: Normal Color, Warm/Dry Lymphatic: No Adenopathy Results Lab Laboratory Tests 10/17/19 08:05 10/18/19 02:53 10/18/19 04:55 10/19/19 02:44 Assessment/Plan Assessment/Plan CAD s/p Cath Fever resolved - -Repeat CXR - pending -Check Razo cultures -Influenza - neg - Zosyn -MRSA swab - neg -RVP - Zoysn Elevated DDIMER -Lovenox -V/q scan pending UTI -Zosyn Possible tooth abscess -Pt states she has a tooth that needs pulled DM COPD hx -Albuterol INH -Advair Probable D/c home if V/Q is negative ARGENIS MCLEAN DO Oct 19, 2019 05:33
[2019-10-19 06:10] VITALS: BP 134/61
[2019-10-19] MEDS: GLIMEPIRIDE 4 MG (AMARYL) TAB PO SCH ×2 (06:17→09:06)
[2019-10-19] MEDS: RT-ALBUTEROL SULF 2.5 MG/3 ML PRE-MIX VIAL IH SCH ×2 (06:40→10:19)
[2019-10-19] MEDS: ADVAIR HFA 115/21 MCG INHALER 8 GM IH SCH (06:42)
[2019-10-19] MEDS: RT-ALBUTEROL HFA (PROAIR HFA) 8.5 GM IH SCH ×2 (06:42→10:20)
[2019-10-19] MEDS ORDERED: ENOXAPARIN 80 MG/0.8 ML (LOVENOX) SYR SC SCH ×2 (07:00)
--- NOTE | 2019-10-19 07:01 | Diagnostic Imaging Report ---
INDICATION: Shortness of breath. Portable chest 6:45 AM Heart size and pulmonary vascularity are normal. Lungs are clear. There are no effusions or pneumothoraces. IMPRESSION: Negative chest. Dictated by: Dictated on workstation # [id number]
[2019-10-19 08:00] VITALS: BP 115/85
[2019-10-19] MEDS: GABAPENTIN 300 MG (NEURONTIN) CAP PO SCH (08:22)
--- NOTE | 2019-10-19 08:51 | Diagnostic Imaging Report ---
INDICATION: Elevated D-dimer. Patient was administered 40.4 mCi technetium 99M DTPA to the nebulizer and imaging over the chest was performed. Next, patient was administered 5.3 mCi technetium 99m MAA intravenously and imaging of the chest was performed in multiple obliquities. There appears to be fairly homogeneous ventilation of both lungs. No ventilation defects are seen. The perfusion study does show fairly homogeneous perfusion of both lungs. No pleural-based perfusion defects are seen. IMPRESSION: Normal ventilation and perfusion lung scan. Dictated by: Dictated on workstation # [id number]
--- NOTE | 2019-10-19 08:57 | Consultation - Hospitalist ---
HPI History of Present Illness: HPI/Chief Complaint Pt is a 74yoCM with a PMH of COPD, CKD, CANDICE, HTN, CAD, DMII, neuropathy who was admitted for cardiac cath due persistent worsening shortness of breath over the past two weeks. She reports that she has had jail shortness of breath and thought it was due to her multiple chronic illnesses. She was admitted by her transportation lead for cardiac cath for work up of SOB. Following her cath she developed a fever and I was consulted for medical management. Dr Orlando had seen her yesterday and given her SOB and fever with lymphopenia appropriately tested her for COVID19. This test has since come back negative and she is no longer febrile. D-dimer was elevated and she underwent V/Q scan (unable to tolerate contrast given CKD). This was pending at the time of my exam. She reports feeling well now and having no chest pain or worsening shortness of breath. She is requesting discharge home. Source: patient Date Seen 10/19/19 Attending Physician Chilango Fernandes MD Facp Facc Ccds PCP Tone Perez MD Referring Physician Date of Admission Home Medications & Allergies Home Medications Reviewed patient Home Medication Reconciliation performed by pharmacy medication reconciliations fuel retrofitting technician and/or nursing. Patients Allergies have been reviewed. Allergies Allergies Coded Allergies atorvastatin calcium (Unverified Allergy, Unknown, 07/27/16) cefdinir (Verified Allergy, Unknown, 09/01/17) codeine (Unverified Allergy, Unknown, 07/27/16) doxycycline (Verified Allergy, Unknown, 09/01/17) escitalopram oxalate (Unverified Allergy, Unknown, 07/27/16) niacin (Unverified Allergy, Unknown, 07/27/16) oxycodone (Verified Allergy, Unknown, 09/01/17) simvastatin (Unverified Allergy, Unknown, 07/27/16) tramadol (Unverified Allergy, Unknown, 07/27/16) acetaminophen (Verified Adverse Reaction, Mild, 10/17/19) TYLENOL WITH CODEINE MAKE PT ITCH. Past Drbgtgr-Dyoszd-Dxbyxp Hx Past Med/Social Hx: Reviewed Nursing Past Med/Soc Hx Patient Social History Alcohol Use: Denies Use Recreational Drug Use: No Smoking Status: Former Smoker Former Smoker, Quit: Aug 15, 2012 Type Used: Cigarettes 2nd Hand Smoke Exposure: No Recent Foreign Travel: No Contact w/other who traveled: No Recent Hopitalizations: No Immunizations Up To Date Tetanus Booster (TDap): Less than 5yrs Pediatric: No Date of Pneumonia Vaccine: May 04, 2016 Date of Influenza Vaccine: May 08, 2019 Seasonal Allergies Seasonal Allergies: No Past Medical History Surgeries: Bladder Surgery, Gallbladder, Hysterectomy, Orthopedic, Tonsillectomy Currently Using CPAP: Yes Cardiac: Coronary Artery Disease, High Cholesterol, Hypertension Reproductive: No Sexually Transmitted Disease: No HIV/AIDS: No Female Reproductive Disorders: Denies Gastrointestinal: Chronic Diarrhea, Polyps Musculoskeletal: Fibromyalgia Endocrine: Adrenal Disease, Diabetes, Non-Insulin dep Loss of Vision: Bilateral Hearing Impairment: Hard of Hearing History of Blood Disorders: Yes (ANEMIA, POSSIBLE EARLY LEUKEMIA) Adverse Reaction to Blood Rodriguez: No Family History Reviewed Nursing Family Hx No Pertinent Family Hx Review of Systems Constitutional: fever Respiratory: see HPI, dyspnea on exertion, short of breath Cardiovascular: see HPI Gastrointestinal: No abdominal pain, No nausea, No vomiting Genitourinary: No dysuria, No frequency Musculoskeletal: no symptoms reported Skin: no symptoms reported Psychiatric/Neurological: No Symptoms Reported Physical Exam Physical Exam Vital Signs Vital Signs - First Documented 10/17/19 10/18/19 08:18 00:00 Temp 37.1 Pulse 80 Resp 20 B/P (MAP) 155/68 (97) Pulse Ox 96 O2 Delivery Room Air O2 Flow Rate 2.00 Capillary Refill : Less Than 3 Seconds Height, Weight, BMI Height: 5'2.00" Weight: 166lbs. 6.0oz. 75.333912vj; 29.83 BMI Method:Stated General Appearance: No Apparent Distress, WD/WN, Chronically ill HEENT: PERRL/EOMI, Moist Mucous Membranes; No Scleral Icterus (L), No Scleral Icterus (R) Neck: Full Range of Motion, Non Tender, Supple Respiratory: Chest Non Tender, Lungs Clear, No Accessory Muscle Use, No Respiratory Distress Cardiovascular: Regular Rate, Rhythm, No Murmur Gastrointestinal: Normal Bowel Sounds, Non Tender, Soft Extremity: Normal Inspection, No Pedal Edema Neurologic/Psychiatric: Alert, Oriented x3, Normal Mood/Affect Skin: Normal Color, Warm/Dry Lymphatic: No Adenopathy Results Results/Procedures Labs Laboratory Tests 10/18/19 02:53 10/18/19 04:55 10/19/19 02:44 Patient resulted labs reviewed. Assessment/Plan Assessment and Plan Assess & Plan/Chief Complaint Fever- resolved UTI Continue on Zosyn Flu negative, COVID19 negative Reviewed previous culture from May and was sensitive to everything except bactrim Can DC on Augmentin if primary plans to DC Elevated d-dimer On Lovenox Unable to tolerate CTA V/Q pending Bilateral lower extremity dopplers negative CAD Management per primary Continue Plavix and ASA ? tooth abscess Will need outpatient follow up CKD At baseline NIDDMII Continue home meds BS within goal COPD without acute exacerbation Pulm consulted, appreciate EDWIN James MD Oct 19, 2019 08:57
[2019-10-19] MEDS: ISOSORBIDE MONONITRATE 120 MG PO SCH (09:05)
[2019-10-19] MEDS: doxAzosin 2 MG (CARDURA) TAB PO SCH (09:06)
[2019-10-19] MEDS: BISOPROLOL PO SCH (09:06)
[2019-10-19] MEDS: HCTZ PO SCH (09:06)
[2019-10-19] MEDS: ASPIRIN E.C. 81 MG (ECOTRIN) TAB PO SCH (09:06)
[2019-10-19] MEDS: CLOPIDOGREL 75 MG (PLAVIX) TABLET PO SCH (09:06)
[2019-10-19] MEDS: LOSARTAN 100 MG (COZAAR) TABLET PO SCH (09:08)
[2019-10-19] MEDS: PANTOPRAZOLE 40 MG (PROTONIX) TAB PO SCH (09:08)
--- NOTE | 2019-10-19 10:41 | NUR ---
THIS NURSE NOTIFIED DR MCLEAN V/Q SCAN RESULTS WERE IN. DR CARIDAD DEMARCO WITH DC FROM HIS STANDPOINT.
--- NOTE | 2019-10-19 10:44 | NUR ---
DR HILL NOTIFIED THIS NURSE PT CAN GO HOME FROM HIS STANDPOINT.
--- NOTE | 2019-10-19 10:46 | NUR ---
THIS NURSE NOTIFIED DR ENGLAND, DR MCLEAN AND DR HILL ARE OKAY WITH DC.
[2019-10-19] MEDS ORDERED: AMOX-358 PO (12:02)
--- NOTE | 2019-10-19 12:45 | NUR ---
THIS NURSE EDUCATED PT ON DC INSTRUCTIONS AND ANSWERED PT QUESTIONS. PT STATED UNDERSTANDING. PT TAKEN DOWN VIA WHEELCHAIR WITH PERSONAL BELONGINGS. TO TAKE PT HOME.
[2019-10-19 13:00] VITALS: BP 115/85
--- NOTE | 2019-10-19 22:25 | Cardiology Discharge Summary ---
Diagnosis/Chief Complaint Date of Admission Date of Discharge Discharge Summary Procedures None. Discussion & Recommendations Home Medications Reviewed patient Home Medication Reconciliation performed by pharmacy medication reconciliations deburring technician and/or nursing. Patients Allergies have been reviewed. Discharge Home Medications: Reviewed and agree with Discharge Medication list on patient's Discharge Instruction sheet Instructions to patient/family F/u with Dr Fernandes in 1-2 weeks Mervin HILL MD Oct 19, 2019 22:25
[2019-10-20 13:37] LABS: RSV PCR TEST Not Detected (Not Detected)
== END 2019-10-19 13:00 | disposition home or self-care (01) ==
LOC: CATH 07:19 → ICU 12:29 → CATH 10-19 13:00
PROVIDERS: ATTEND Internal Medicine Cardiovascular Disease
DX: I25.10 Atherosclerotic heart disease of native coronary artery without angina pectoris (principal); I65.23 Occlusion and stenosis of bilateral carotid arteries; I12.9 Hypertensive chronic kidney disease with stage 1 through stage 4 chronic kidney disease, or unspecified chronic kidney disease; E11.22 Type 2 diabetes mellitus with diabetic chronic kidney disease; N18.4 Chronic kidney disease, stage 4 (severe); E78.5 Hyperlipidemia, unspecified; E83.42 Hypomagnesemia; E11.40 Type 2 diabetes mellitus with diabetic neuropathy, unspecified; J44.9 Chronic obstructive pulmonary disease, unspecified; N39.0 Urinary tract infection, site not specified; C94.6 Myelodysplastic disease, not elsewhere classified; D50.9 Iron deficiency anemia, unspecified; G47.33 Obstructive sleep apnea (adult) (pediatric); G89.29 Other chronic pain; D47.3 Essential (hemorrhagic) thrombocythemia; M19.90 Unspecified osteoarthritis, unspecified site; Z88.5 Allergy status to narcotic agent; Z88.8 Allergy status to other drugs, medicaments and biological substances; Z88.6 Allergy status to analgesic agent; Z88.1 Allergy status to other antibiotic agents; Z99.89 Dependence on other enabling machines and devices; Z79.82 Long term (current) use of aspirin; Z79.84 Long term (current) use of oral hypoglycemic drugs; Z79.02 Long term (current) use of antithrombotics/antiplatelets; Z87.891 Personal history of nicotine dependence
CPT/HCPCS: 36415; 71045; 78582; 80048; 80053; 80061; 83735; 84100; 85025; 85027; 85379; 85610; 85730; 87081; 93970; 94640; 94760

== ENCOUNTER 2020-01-04 12:33 | Outpatient (RCR) | payer MEDICARE, OTHER ==
[2019-12-27 15:01] LABS: BASOPHILS # (AUTO) 0.1 10^3/uL (0.0-0.1); BASOPHILS % (AUTO) 1 % (0-10); EOSINOPHILS # (AUTO) 0.3 10^3/uL (0.0-0.3); EOSINOPHILS % (AUTO) 2 % (0-10); HEMATOCRIT 38 % (35-52); HEMOGLOBIN 12.2 G/DL (11.5-16.0); LYMPHOCYTES # (AUTO) 1.6 X 10^3 (1.0-4.0); LYMPHOCYTES % (AUTO) 14 % (12-44); MEAN CORPUSCULAR HEMOGLOBIN 31 PG (25-34); MEAN CORPUSCULAR HGB CONC 32 G/DL (32-36); MEAN CORPUSCULAR VOLUME 95 FL (80-99); MEAN PLATELET VOLUME 9.9 FL (7.4-10.4); MONOCYTES # (AUTO) 0.7 X 10^3 (0.0-1.0); MONOCYTES % (AUTO) 6 % (0-12); NEUTROPHILS # (AUTO) 9.2 X 10^3 (1.8-7.8); NEUTROPHILS % (AUTO) 78 % (42-75); PLATELET COUNT 374 10^3/uL (130-400); WHITE BLOOD COUNT 11.8 10^3/uL (4.3-11.0)
[2019-12-27 15:31] LABS: ALBUMIN 4.3 GM/DL (3.2-4.5); BILIRUBIN,TOTAL 0.5 MG/DL (0.1-1.0); CREATININE SERUM 1.81 MG/DL (0.60-1.30); POTASSIUM 4.4 MMOL/L (3.6-5.0)
[~2020-01-04 12:33] MED LIST changes: +ALBU0.63 IH; +AMIT25TA9 PO; +AMOX-358 PO; +DULA0.75 SQ; +GABA-488 PO; +GLIM4TAB5 PO; -PANT40TA3 PO; +PANT40TA52 PO
== END 2020-03-26 | disposition home or self-care (01) ==
LOC: ONC 12:33
PROVIDERS: ATTEND Internal Medicine Hematology & Oncology
DX: D47.1 Chronic myeloproliferative disease (principal); D50.9 Iron deficiency anemia, unspecified; I12.9 Hypertensive chronic kidney disease with stage 1 through stage 4 chronic kidney disease, or unspecified chronic kidney disease; E11.22 Type 2 diabetes mellitus with diabetic chronic kidney disease; N18.3 Chronic kidney disease, stage 3 (moderate); I25.10 Atherosclerotic heart disease of native coronary artery without angina pectoris; E78.5 Hyperlipidemia, unspecified; M79.7 Fibromyalgia; Z48.812 Encounter for surgical aftercare following surgery on the circulatory system; Z87.891 Personal history of nicotine dependence; Z79.899 Other long term (current) drug therapy; E04.2 Nontoxic multinodular goiter
CPT/HCPCS: 80053; 82728; 83615; 85025; 99213

== ENCOUNTER → 2020-04-02 | Outpatient (CLI) | payer MEDICARE, OTHER ==
[~2020-04-02] VITALS: Ht 162 cm; Wt 76.0 kg
[~2020-04-02] MED LIST changes: +CATHETER FLUSH 10 ML SYR IV PRN; +REGADENOSON 0.4 MG/5 ML SYR (LEXISCAN) IV ONE
[2020-04-02 09:41] VITALS: BP 186/86
--- NOTE | 2020-04-02 12:37 | STRESS TEST ---
DATE OF SERVICE: 04/02/2020 RESTING AND POST REGADENOSON TECHNETIUM-99M TETROFOSMIN SPECT CT IMAGING ORDERING PHYSICIAN: Debbi Harmon APRN PRIMARY PHYSICIAN: Dr. Perez. CLINICAL DIAGNOSIS: Chest discomfort. Baseline images were carried out after injection of 10.72 mCi of technetium-99m Tetrofosmin. This was followed by 0.4 mg regadenoson and 31.9 mCi of technetium-99m Tetrofosmin for stress imaging. The electrocardiogram showed sinus rhythm at baseline. It did not change significantly with regadenoson infusion. The patient noted some shortness of breath following regadenoson infusion, which resolved in a few minutes. Review of images at rest and following stress does not indicate any significant perfusion defects consistent with myocardial ischemia or infarction. Stress imaging is normal. In resting images, tracer uptake is slightly patchy, probably due to patient motion during image acquisition. Gated images showed normal global left ventricular systolic function with normal regional wall motion. Left ventricular ejection fraction is calculated to be 64%. Left ventricular end diastolic volume is 71 mL. TID is absent (1.07). CONCLUSIONS: 1. No evidence of any significant myocardial ischemia or infarction on this study. 2. Normal regional wall motion. 3. Normal global left ventricular systolic function with a calculated ejection fraction of 64%. Job ID: [id number] DocumentID: [id number] Dictated Date: 04/02/2020 12:19:23 Cold Press Loader Date: 04/02/2020 12:36:35 Dictated By: CHRISTY ESQUIVEL MD, MA, FACP, FACC,
== END ==
LOC: CARD 08:22
PROVIDERS: ATTEND Nurse Practitioner Family
DX: R07.89 Other chest pain (principal); Z20.828 Contact with and (suspected) exposure to other viral communicable diseases
CPT/HCPCS: 78452; 93017; A9502

== ENCOUNTER → 2020-04-04 | Outpatient (CLI) | payer MEDICARE, OTHER ==
[~2020-04-04] MED LIST changes: -CATHETER FLUSH 10 ML SYR IV PRN; -REGADENOSON 0.4 MG/5 ML SYR (LEXISCAN) IV ONE
== END ==
LOC: CARD 11:00
PROVIDERS: ATTEND Nurse Practitioner Family
DX: I34.0 Nonrheumatic mitral (valve) insufficiency (principal)
CPT/HCPCS: 93306

== ENCOUNTER → 2020-04-30 | Outpatient (CLI) | payer MEDICARE, OTHER ==
[~2020-04-30] MED LIST changes: +AMLO-250 PO; -AMLO5TAB9 PO
== END ==
LOC: RAD 11:26
PROVIDERS: ATTEND Internal Medicine Cardiovascular Disease
DX: I25.10 Atherosclerotic heart disease of native coronary artery without angina pectoris (principal); I65.29 Occlusion and stenosis of unspecified carotid artery; E11.22 Type 2 diabetes mellitus with diabetic chronic kidney disease; I12.9 Hypertensive chronic kidney disease with stage 1 through stage 4 chronic kidney disease, or unspecified chronic kidney disease; N18.4 Chronic kidney disease, stage 4 (severe); E78.5 Hyperlipidemia, unspecified; Z20.828 Contact with and (suspected) exposure to other viral communicable diseases; Z87.891 Personal history of nicotine dependence
CPT/HCPCS: 93923

== ENCOUNTER 2020-08-01 13:23 | Outpatient (RCR) | payer MEDICARE, OTHER ==
[2020-07-25 11:15] LABS: BASOPHILS # (AUTO) 0.1 10^3/uL (0.0-0.1); BASOPHILS % (AUTO) 1 % (0-10); EOSINOPHILS # (AUTO) 0.3 10^3/uL (0.0-0.3); EOSINOPHILS % (AUTO) 2 % (0-10); HEMATOCRIT 39 % (35-52); HEMOGLOBIN 12.3 g/dL (11.5-16.0); LYMPHOCYTES # (AUTO) 1.2 10^3/uL (1.0-4.0); LYMPHOCYTES % (AUTO) 9 % (12-44); MEAN CORPUSCULAR HEMOGLOBIN 29 pg (25-34); MEAN CORPUSCULAR HGB CONC 32 g/dL (32-36); MEAN CORPUSCULAR VOLUME 93 fL (80-99); MEAN PLATELET VOLUME 10.3 fL (9.0-12.2); MONOCYTES # (AUTO) 0.6 10^3/uL (0.0-1.0); MONOCYTES % (AUTO) 4 % (0-12); NEUTROPHILS # (AUTO) 10.6 10^3/uL (1.8-7.8); NEUTROPHILS % (AUTO) 83 % (42-75); PLATELET COUNT 375 10^3/uL (130-400); WHITE BLOOD COUNT 12.7 10^3/uL (4.3-11.0)
[2020-07-25 11:38] LABS: BILIRUBIN,TOTAL 0.5 MG/DL (0.1-1.0); CALCIUM 9.4 MG/DL (8.5-10.1); CREATININE SERUM 1.8 MG/DL (0.60-1.30); TOTAL PROTEIN 6.6 GM/DL (6.4-8.2)
[2020-10-07] MEDS ORDERED: HYDR-3923 PO (14:56)
[2020-10-07] MEDS ORDERED: DOXA8TAB73 PO (15:38)
[2020-10-07] MEDS ORDERED: ACET-2267 PO (15:38)
[2020-10-07] MEDS ORDERED: GABA300C PO (15:38)
[2020-10-07] MEDS ORDERED: ALB0.5V INH (15:38)
[2020-10-07] MEDS ORDERED: ASPI-1238 PO (15:38)
[2020-10-07] MEDS ORDERED: CLOP75TA28 PO (15:38)
[2020-10-09] MEDS ORDERED: CLN.1T PO (10:21)
[2020-10-09] MEDS ORDERED: BISO10TA PO (10:21)
[2020-10-09] MEDS ORDERED: FURO20TA4 PO (10:21)
[2020-10-09] MEDS ORDERED: AMLO-251 PO (10:21)
== END 2020-10-23 | disposition home or self-care (01) ==
LOC: ONC 13:23
PROVIDERS: ATTEND Internal Medicine Hematology & Oncology
DX: Z12.31 Encounter for screening mammogram for malignant neoplasm of breast (principal); D47.1 Chronic myeloproliferative disease; D72.829 Elevated white blood cell count, unspecified; E04.2 Nontoxic multinodular goiter; D47.3 Essential (hemorrhagic) thrombocythemia; K63.5 Polyp of colon; E11.22 Type 2 diabetes mellitus with diabetic chronic kidney disease; I12.9 Hypertensive chronic kidney disease with stage 1 through stage 4 chronic kidney disease, or unspecified chronic kidney disease; N18.4 Chronic kidney disease, stage 4 (severe); E78.5 Hyperlipidemia, unspecified; J44.9 Chronic obstructive pulmonary disease, unspecified; Z86.2 Personal history of diseases of the blood and blood-forming organs and certain disorders involving the immune mechanism
CPT/HCPCS: 80053; 82728; 83615; 85025; 99213

== ENCOUNTER 2020-10-07 09:25 | Inpatient (IN) | payer MEDICARE, OTHER ==
[~2020-10-07] VITALS: Ht 157.4 cm; Wt 77.2 kg
[2020-10-07] VITALS (15 sets, daily range): BP systolic 137–216; BP diastolic 67–90
[2020-10-07] MEDS ORDERED: hydrALAZINE (APESOLINE) 20 MG/ML VIAL IV ONE ×2 (09:45→12:30)
--- NOTE | 2020-10-07 09:52 | ED Chest Pain ---
General Stated Complaint: SOB, HTN Source: patient Exam Limitations: no limitations History of Present Illness Date Seen by Provider: Oct 07, 2020 Time Seen by Provider: 09:33 Initial Comments Here with report of persistent elevated blood pressure since September 21. Unsure of the cause of the change in blood pressure but has noted that it has been persistently elevated. Does have history of cardiac stent as well as renal stents. Has been taking her medications as directed. She was seen at [facility] a few days ago and started on hydralazine 25 mg twice daily. This has not changed anything for her. She did take a dose of that earlier this morning. Does report intermittent chest aching and back aching as well as shortness of breath. Denies nausea, vomiting, diaphoresis or weakness. Denies arm pain or numbness on either side. Has had frequency of urination which is new as well as chronic incontinence but it is worse now. Timing/Duration: other (2 weeks) Severity/Quality: moderate, aching Location: central Radiation: back Prior CP/Workup: cardiac cath, heart attack, stress test ASA po MOVIE OPERATOR: Yes NTG SL MOVIE OPERATOR: Yes Associated Symptoms: No abdominal pain; back pain; No fever/chills, No nausea/vomiting; shortness of breath; No weakness Allergies and Home Medications Allergies Coded Allergies: atorvastatin calcium (Unverified Allergy, Unknown, 07/27/16) cefdinir (Verified Allergy, Unknown, 09/01/17) codeine (Unverified Allergy, Unknown, 07/27/16) doxycycline (Verified Allergy, Unknown, 09/01/17) escitalopram oxalate (Unverified Allergy, Unknown, 07/27/16) niacin (Unverified Allergy, Unknown, 07/27/16) oxycodone (Verified Allergy, Unknown, 09/01/17) simvastatin (Unverified Allergy, Unknown, 07/27/16) tramadol (Unverified Allergy, Unknown, 07/27/16) acetaminophen (Verified Adverse Reaction, Mild, 10/17/19) TYLENOL WITH CODEINE MAKE PT ITCH. Home Medications Albuterol Sulfate 0.63 Mg/3 Ml Vial.neb, 0.63 MG IH QID, (Reported) Amitriptyline HCl 25 Mg Tablet, 12.5 MG PO HS PRN for INSOMNIA, (Reported) Amoxicillin/Potassium Clav 1 Each Tablet, 1 EACH PO BID Prescribed by: EDWIN ENGLAND on 10/19/19 1202 Aspirin 81 Mg Tab.chew, 81 MG PO DAILY Prescribed by: JENNIFER COTTER on 10/04/18 1527 Bisoprolol Fumarate/Hctz 1 Each Tablet, 1 EACH PO DAILY, (Reported) Clopidogrel Bisulfate 75 Mg Tablet, 1 EACH PO DAILY, (Reported) Doxazosin Mesylate 2 Mg Tablet, 6 MG PO BID, (Reported) Dulaglutide 0.75 Mg/0.5 Ml Pen.injctr, 0.75 MG SQ WEEK, (Reported) Gabapentin 300 Mg Capsule, 300 MG PO BID, (Reported) Glimepiride 4 Mg Tablet, 4 MG PO BID, (Reported) Isosorbide Mononitrate 120 Mg Tab.er.24h, 120 MG PO DAILY, (Reported) Losartan Potassium 100 Mg Tablet, 100 MG PO DAILY, (Reported) Pantoprazole Sodium 40 Mg Tablet.dr, 40 MG PO DAILY, (Reported) Patient Home Medication List Home Medication List Reviewed: Yes Review of Systems Review of Systems Constitutional: see HPI; No chills, No fever EENTM: No Symptoms Reported Respiratory: See HPI; Denies Cough; Shortness of Air Cardiovascular: No Symptoms Reported, See HPI Gastrointestinal: Denies Nausea, Denies Vomiting Genitourinary: No Symptoms Reported Musculoskeletal: no symptoms reported Skin: no symptoms reported All Other Systems Reviewed Negative Unless Noted: Yes Past Esybkyd-Bvglcb-Bmjpca Hx Past Med/Social Hx: Reviewed Nursing Past Med/Soc Hx Patient Social History Alcohol Use: Denies Use Smoking Status: Former Smoker Type Used: Cigarettes Former Smoker, Quit: Aug 15, 2012 2nd Hand Smoke Exposure: No Recent Hopitalizations: No Immunizations Up To Date Tetanus Booster (TDap): Less than 5yrs PED Vaccines UTD: No Date of Pneumonia Vaccine: May 04, 2016 Date of Influenza Vaccine: May 08, 2019 Seasonal Allergies Seasonal Allergies: No Past Medical History Surgeries: No Bladder Surgery, Gallbladder, Hysterectomy, Orthopedic, Tonsillectomy Respiratory: Yes Sleep Apnea, COPD Currently Using CPAP: Yes Cardiac: Yes Coronary Artery Disease, High Cholesterol, Hypertension Neurological: No Reproductive Disorders: No Female Reproductive Disorders: Denies Sexually Transmitted Disease: No HIV/AIDS: No Genitourinary: Yes (INCONT) Gastrointestinal: Yes Chronic Diarrhea, Polyps Musculoskeletal: Yes (, CERVICAL STENOSIS) Fibromyalgia Endocrine: Yes (history of thyroid nodules) Adrenal Disease, Diabetes, Non-Insulin dep Loss of Vision: Bilateral Hearing Impairment: Hard of Hearing Psychosocial: No Integumentary: No Blood Disorders: Yes (ANEMIA, POSSIBLE EARLY LEUKEMIA) Adverse Reaction/Blood Tranf: No Family Medical History Reviewed Nursing Family Hx No Pertinent Family Hx Physical Exam Vital Signs Vital Signs - First Documented 10/07/20 09:32 Temp 36.9 Pulse 82 Resp 18 B/P (MAP) 243/120 (161) Pulse Ox 95 Capillary Refill : Height, Weight, BMI Height: 5'2.00" Weight: 166lbs. 6.0oz. 75.860062xi; 28.95 BMI Method:Stated General Appearance: No Apparent Distress, WD/WN HEENT: PERRL/EOMI, Pharynx Normal Neck: Non Tender, Supple Respiratory: Lungs Clear, Normal Breath Sounds Cardiovascular: Regular Rate, Rhythm, No Murmur Gastrointestinal: Non Tender, Soft Extremity: Normal Range of Motion, Non Tender Neurologic/Psychiatric: Alert, Oriented x3 Skin: Normal Color, Warm/Dry Progress/Results/Core Measures Results/Orders Lab Results Laboratory Tests Test 10/07/20 09:45 10/07/20 09:54 Range/Units White Blood Count 12.2 H 4.3-11.0 10^3/uL Red Blood Count 4.38 3.80-5.11 10^6/uL Hemoglobin 12.8 11.5-16.0 g/dL Hematocrit 40 35-52 % Mean Corpuscular Volume 92 80-99 fL Mean Corpuscular Hemoglobin 29 25-34 pg Mean Corpuscular Hemoglobin Concent 32 32-36 g/dL Red Cell Distribution Width 16.0 H 10.0-14.5 % Platelet Count 382 130-400 10^3/uL Mean Platelet Volume 10.0 9.0-12.2 fL Immature Granulocyte % (Auto) 1 % Neutrophils (%) (Auto) 83 H 42-75 % Lymphocytes (%) (Auto) 9 L 12-44 % Monocytes (%) (Auto) 4 0-12 % Eosinophils (%) (Auto) 3 0-10 % Basophils (%) (Auto) 1 0-10 % Neutrophils # (Auto) 10.1 H 1.8-7.8 X 10^3 Lymphocytes # (Auto) 1.1 1.0-4.0 X 10^3 Monocytes # (Auto) 0.5 0.0-1.0 X 10^3 Eosinophils # (Auto) 0.3 0.0-0.3 10^3/uL Basophils # (Auto) 0.1 0.0-0.1 10^3/uL Immature Granulocyte # (Auto) 0.1 0.0-0.1 10^3/uL Prothrombin Time 13.5 12.2-14.7 SEC INR Comment 1.0 0.8-1.4 Activated Partial Thromboplast Time 34 24-35 SEC D-Dimer 0.75 H 0.00-0.49 UG/ML Sodium Level 142 135-145 MMOL/L Potassium Level 4.3 3.6-5.0 MMOL/L Chloride Level 109 H 98-107 MMOL/L Carbon Dioxide Level 22 21-32 MMOL/L Anion Gap 11 5-14 MMOL/L Blood Urea Nitrogen 29 H 7-18 MG/DL Creatinine 2.10 H 0.60-1.30 MG/DL Estimat Glomerular Filtration Rate 23 BUN/Creatinine Ratio 14 Glucose Level 179 H 70-105 MG/DL Calcium Level 9.6 8.5-10.1 MG/DL Corrected Calcium 9.3 8.5-10.1 MG/DL Magnesium Level 1.8 1.6-2.4 MG/DL Total Bilirubin 0.5 0.1-1.0 MG/DL Aspartate Amino Transf (AST/SGOT) 18 5-34 U/L Alanine Aminotransferase (ALT/SGPT) 18 0-55 U/L Alkaline Phosphatase 97 40-136 U/L Myoglobin 80.7 10.0-92.0 NG/ML Troponin I < 0.028 <0.028 NG/ML C-Reactive Protein High Sensitivity 2.57 H 0.00-0.50 MG/DL B-Type Natriuretic Peptide 523.6 H <100.0 PG/ML Total Protein 7.3 6.4-8.2 GM/DL Albumin 4.4 3.2-4.5 GM/DL Urine Color YELLOW Urine Clarity CLEAR Urine pH 6.0 5-9 Urine Specific [place] 1.015 L 1.016-1.022 Urine Protein 2+ H NEGATIVE Urine Glucose (UA) NEGATIVE NEGATIVE Urine Ketones NEGATIVE NEGATIVE Urine Nitrite NEGATIVE NEGATIVE Urine Bilirubin NEGATIVE NEGATIVE Urine Urobilinogen 0.2 < = 1.0 MG/DL Urine Leukocyte Esterase NEGATIVE NEGATIVE Urine RBC (Auto) NEGATIVE NEGATIVE Urine RBC NONE /HPF Urine WBC NONE /HPF Urine Squamous Epithelial Cells 0-2 /HPF Urine Crystals NONE /LPF Urine Bacteria NEGATIVE /HPF Urine Casts NONE /LPF Urine Mucus NEGATIVE /LPF Urine Culture Indicated NO My Orders Orders - ANDREA MEDINA MD Cbc With Automated Diff (10/07/20 09:43) Magnesium (10/07/20:43) Chest 1 View, Ap/Pa Only (10/07/20:43) Ekg Tracing (10/07/20:43) Comprehensive Metabolic Panel (10/07/20:43) Myoglobin Serum (10/07/20:43) Protime With Inr (10/07/20:43) Partial Thromboplastin Time (10/07/20:43) O2 (10/07/20:43) Monitor-Rhythm Ecg Trace Only (10/07/20:43) Lipid Panel (10/08/20 06:00) Ed Iv/Invasive Line Start (10/07/20 09:43) BNP (10/07/20 09:43) Fibrin Degradation Products (10/07/20:43) Troponin I (10/07/20:43) Hs C Reactive Protein (10/07/20:43) Ua Culture If Indicated (10/07/20 09:43) Hydralazine Injection (Apresoline Inject (10/07/20 09:45) Medications Given in ED Current Medications Medications Dose Ordered Sig/Syl Route Start Time Stop Time Status Last Admin Dose Admin Hydralazine HCl 20 mg ONCE ONCE IV 10/07/20 09:45 10/07/20 09:46 DC 10/07/20 10:01 20 MG Vital Signs/I&O 10/07/20 09:32 Temp 36.9 Pulse 82 Resp 18 B/P (MAP) 243/120 (161) Pulse Ox 95 Progress Progress Note : Progress Note Seen and evaluated. Chest pain protocol initiated. Hydralazine 20 mg IV ordered. Patient has already had nitro and aspirin today. Monitor patient. 1157: Labs reviewed and show no elevation in troponin but BNP is elevated. No urinary tract infection noted. Chest x-ray clear at this point although I still believe there is underlying heart failure concerns. Blood pressure has ranged and has been as low as 140s over 80s after hydralazine. Patient still complains of a little shortness of breath and mild headache or fogginess feeling. I did discuss the case with Dr. Harding, on-call for hospitalist service. Given patient's 2 weeks failure outpatient to control blood pressure and malignant nature, patient will be admitted for malignant hypertension control with cardiology consult. I did discuss the case with Dr. Diez, and he agrees and will see patient in consult. Admit, inpatient status. Patient and family agree with plan and are appreciative of stay. Initial ECG Impression Date: Oct 07, 2020 Initial ECG Impression Time: 09:50 Initial ECG Rate: 75 Initial ECG Rhythm: Normal Sinus Comment Sinus rhythm with left atrial abnormality. Normal axis. Left ventricular hypertrophy. No evidence of ST elevation VT. Interpreted by me. Similar to previous of 10/05/2018. Diagnostic Imaging Diagonstic Imaging: Xray Plain Films/CT/US/NM/MRI: chest Comments [facility] [place], [place] NAME: FREDO YEPEZ [facility] REC#: [id number] PT STATUS: REG ER : 1945 PHYSICIAN: ANDREA MEDINA MD ADMIT DATE: 10/07/20/ER Draft Date of Exam:10/07/20 CHEST 1 VIEW, AP/PA ONLY INDICATION: Chest pain. COMPARISON: 10/19/2019. FINDINGS: A single frontal view of the chest demonstrates normal heart size and pulmonary vascularity. The lungs are well aerated and clear. No large pleural effusion or pneumothorax is seen. The visualized osseous structures show no acute abnormalities. IMPRESSION: No acute cardiopulmonary process. Dictated on workstation # [id number] Dict: 10/07/20 1105 Trans: 10/07/20 1110 [id number] Interpreted by: JOEL SALAS MD Electronically signed by: Departure Communication (Admissions) Time/Spoke to Admitting Phy: 11:53 Time/Spoke to Consulting Phy: 11:57 Impression Primary Impression: Malignant hypertension Additional Impressions: Chest pain Qualified Codes: R07.9 - Chest pain, unspecified Acute heart failure Qualified Codes: I50.9 - Heart failure, unspecified Disposition: 09 ADMITTED INPATIENT Condition: Stable Admissions Decision to Admit Reason: Admit from ER (General) Decision to Admit/Date: Oct 07, 2020 Time/Decision to Admit Time: 11:53 Departure-Patient Inst. Referrals: RAJWINDER CARVAJAL MD (PCP/Family) Primary Care Physician ANDREA MEDINA MD Oct 07, 2020 09:52
[2020-10-07 09:56] LABS: BASOPHILS # (AUTO) 0.1 10^3/uL (0.0-0.1); BASOPHILS % (AUTO) 1 % (0-10); EOSINOPHILS # (AUTO) 0.3 10^3/uL (0.0-0.3); EOSINOPHILS % (AUTO) 3 % (0-10); HEMATOCRIT 40 % (35-52); HEMOGLOBIN 12.8 g/dL (11.5-16.0); LYMPHOCYTES # (AUTO) 1.1 X 10^3 (1.0-4.0); LYMPHOCYTES % (AUTO) 9 % (12-44); MEAN CORPUSCULAR HEMOGLOBIN 29 pg (25-34); MEAN CORPUSCULAR HGB CONC 32 g/dL (32-36); MEAN CORPUSCULAR VOLUME 92 fL (80-99); MONOCYTES # (AUTO) 0.5 X 10^3 (0.0-1.0); MONOCYTES % (AUTO) 4 % (0-12); NEUTROPHILS # (AUTO) 10.1 X 10^3 (1.8-7.8); NEUTROPHILS % (AUTO) 83 % (42-75); PLATELET COUNT 382 10^3/uL (130-400); WHITE BLOOD COUNT 12.2 10^3/uL (4.3-11.0)
[2020-10-07 09:59] LABS: BILIRUBIN,URINE NEGATIVE (NEGATIVE); CLARITY,URINE CLEAR; COLOR,URINE YELLOW; GLUCOSE, URINE (UA) NEGATIVE (NEGATIVE); KETONES,URINE NEGATIVE (NEGATIVE); LEUKOCYTE ESTERASE ,URINE NEGATIVE (NEGATIVE); NITRITE,URINE NEGATIVE (NEGATIVE); PROTEIN,URINE 2+ (NEGATIVE)
[2020-10-07 10:11] LABS: PROTHROMBIN TIME PATIENT 13.5 SEC (12.2-14.7)
[2020-10-07 10:12] LABS: BACTERIA,URINE NEGATIVE /HPF; SQUAMOUS EPITHELIAL CELL,UR 0-2 /HPF
[2020-10-07 10:17] LABS: ALBUMIN 4.4 GM/DL (3.2-4.5); BILIRUBIN,TOTAL 0.5 MG/DL (0.1-1.0); CALCIUM 9.6 MG/DL (8.5-10.1); CREATININE SERUM 2.1 MG/DL (0.60-1.30); MAGNESIUM 1.8 MG/DL (1.6-2.4); POTASSIUM 4.3 MMOL/L (3.6-5.0); TOTAL PROTEIN 7.3 GM/DL (6.4-8.2)
--- NOTE | 2020-10-07 11:11 | Diagnostic Imaging Report ---
INDICATION: Chest pain. COMPARISON: 10/19/2019. FINDINGS: A single frontal view of the chest demonstrates normal heart size and pulmonary vascularity. The lungs are well aerated and clear. No large pleural effusion or pneumothorax is seen. The visualized osseous structures show no acute abnormalities. IMPRESSION: No acute cardiopulmonary process. Dictated by: Dictated on workstation # [id number]
[2020-10-07] MEDS ORDERED: fentaNYL INJ 100 MCG/2 ML AMP IVP STA (11:24)
--- NOTE | 2020-10-07 13:19 | Consultation-Cardiology ---
HPI-Cardiology Cardiology Consultation Date of Consultation 10/07/20 Date of Admission Time Seen by Provider: 12:40 Indication: Malignant hypertension, CP HPI Cardiology was consulted for malignant hypertension and chest pain. Ms. Malhotra is a 75-year-old female who presents to the ED for hypertension and chest pain. She is a patient of Dr. Fernandes. She has been experiencing hyper tension since 09/21. It began after yard work on the with associated blurred vision and headache, resolving with rest.The patient states she regularly checks her blood pressure and noticed a sudden increase. Denies any change to her medications prior to the elevated blood pressure. She visited the emergency room in [place] on 09/23 and they started her on hydralazine 25mg twice daily without improvement in her blood pressure. Currently takes bisoprolol-HCTZ 10-6.25, doxazosin 8mg twice daily, isosorbide mononitrate ER 120mg daily, losartan 100mg daily for control. She has an extensive cardiac history with previous coronary stent and renal stent placement. She noticed extreme chest tightness and shortness of breath, which is why she returned to the ED today. She admits to continued "head fogginess" and hand pain since the [place] [facility] Tried to help her headache by taking Tylenol, but this did not help. In the ED, troponin was normal and EKG revealed sinus rhythm with left atrial abnormality, normal axis, LVH, no evidence of ST elevation IA, similar to previous of 10/05/2018. Home Medications & Allergies Allergies: Coded Allergies: atorvastatin calcium (Unverified Allergy, Unknown, 07/27/16) cefdinir (Verified Allergy, Unknown, 09/01/17) codeine (Unverified Allergy, Unknown, 07/27/16) doxycycline (Verified Allergy, Unknown, 09/01/17) escitalopram oxalate (Unverified Allergy, Unknown, 07/27/16) niacin (Unverified Allergy, Unknown, 07/27/16) oxycodone (Verified Allergy, Unknown, 09/01/17) simvastatin (Unverified Allergy, Unknown, 07/27/16) tramadol (Unverified Allergy, Unknown, 07/27/16) acetaminophen (Verified Adverse Reaction, Mild, 10/17/19) TYLENOL WITH CODEINE MAKE PT ITCH. 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 Family Medical History Significant Family History: Heart Disease, Cancer, CAD Over 55 Years Old, Stroke Family Medical Hx Noncontributory to her current condition Review of Systems-General Review of Systems Constitutional: see HPI; No chills, No fever EENTM: see HPI, blurred vision; No vision loss Respiratory: see HPI, dyspnea on exertion, short of breath Cardiovascular: see HPI, chest pain, edema; No Hx of Intervention, No palpitations, No syncope, No vascular heart diseas, No other Gastrointestinal: No nausea, No vomiting Genitourinary: no symptoms reported, see HPI Musculoskeletal: no symptoms reported, see HPI Skin: no symptoms reported, see HPI Psychiatric/Neurological: No Symptoms Reported, See HPI All Other Systems Reviewed Negative Unless Noted: Yes Reviewed Test Results Reviewed Test Results Lab Laboratory Tests Test 10/07/20 09:45 10/07/20 09:54 Range/Units White Blood Count 12.2 H 4.3-11.0 10^3/uL Red Blood Count 4.38 3.80-5.11 10^6/uL Hemoglobin 12.8 11.5-16.0 g/dL Hematocrit 40 35-52 % Mean Corpuscular Volume 92 80-99 fL Mean Corpuscular Hemoglobin 29 25-34 pg Mean Corpuscular Hemoglobin Concent 32 32-36 g/dL Red Cell Distribution Width 16.0 H 10.0-14.5 % Platelet Count 382 130-400 10^3/uL Mean Platelet Volume 10.0 9.0-12.2 fL Immature Granulocyte % (Auto) 1 % Neutrophils (%) (Auto) 83 H 42-75 % Lymphocytes (%) (Auto) 9 L 12-44 % Monocytes (%) (Auto) 4 0-12 % Eosinophils (%) (Auto) 3 0-10 % Basophils (%) (Auto) 1 0-10 % Neutrophils # (Auto) 10.1 H 1.8-7.8 X 10^3 Lymphocytes # (Auto) 1.1 1.0-4.0 X 10^3 Monocytes # (Auto) 0.5 0.0-1.0 X 10^3 Eosinophils # (Auto) 0.3 0.0-0.3 10^3/uL Basophils # (Auto) 0.1 0.0-0.1 10^3/uL Immature Granulocyte # (Auto) 0.1 0.0-0.1 10^3/uL Prothrombin Time 13.5 12.2-14.7 SEC INR Comment 1.0 0.8-1.4 Activated Partial Thromboplast Time 34 24-35 SEC D-Dimer 0.75 H 0.00-0.49 UG/ML Sodium Level 142 135-145 MMOL/L Potassium Level 4.3 3.6-5.0 MMOL/L Chloride Level 109 H 98-107 MMOL/L Carbon Dioxide Level 22 21-32 MMOL/L Anion Gap 11 5-14 MMOL/L Blood Urea Nitrogen 29 H 7-18 MG/DL Creatinine 2.10 H 0.60-1.30 MG/DL Estimat Glomerular Filtration Rate 23 BUN/Creatinine Ratio 14 Glucose Level 179 H 70-105 MG/DL Calcium Level 9.6 8.5-10.1 MG/DL Corrected Calcium 9.3 8.5-10.1 MG/DL Magnesium Level 1.8 1.6-2.4 MG/DL Total Bilirubin 0.5 0.1-1.0 MG/DL Aspartate Amino Transf (AST/SGOT) 18 5-34 U/L Alanine Aminotransferase (ALT/SGPT) 18 0-55 U/L Alkaline Phosphatase 97 40-136 U/L Myoglobin 80.7 10.0-92.0 NG/ML Troponin I < 0.028 <0.028 NG/ML C-Reactive Protein High Sensitivity 2.57 H 0.00-0.50 MG/DL B-Type Natriuretic Peptide 523.6 H <100.0 PG/ML Total Protein 7.3 6.4-8.2 GM/DL Albumin 4.4 3.2-4.5 GM/DL Urine Color YELLOW Urine Clarity CLEAR Urine pH 6.0 5-9 Urine Specific [place] 1.015 L 1.016-1.022 Urine Protein 2+ H NEGATIVE Urine Glucose (UA) NEGATIVE NEGATIVE Urine Ketones NEGATIVE NEGATIVE Urine Nitrite NEGATIVE NEGATIVE Urine Bilirubin NEGATIVE NEGATIVE Urine Urobilinogen 0.2 < = 1.0 MG/DL Urine Leukocyte Esterase NEGATIVE NEGATIVE Urine RBC (Auto) NEGATIVE NEGATIVE Urine RBC NONE /HPF Urine WBC NONE /HPF Urine Squamous Epithelial Cells 0-2 /HPF Urine Crystals NONE /LPF Urine Bacteria NEGATIVE /HPF Urine Casts NONE /LPF Urine Mucus NEGATIVE /LPF Urine Culture Indicated NO Physical Exam Physical Exam Vital Signs Vital Signs - First Documented 10/07/20 10/07/20 09:32 12:33 Temp 36.9 Pulse 82 Resp 18 B/P (MAP) 243/120 (161) Pulse Ox 95 O2 Delivery Room Air Capillary Refill : Less Than 3 Seconds Height, Weight, BMI Height: 5'2.00" Weight: 166lbs. 6.0oz. 75.571398pl; 31.00 BMI Method:Stated General Appearance: No Apparent Distress, WD/WN HEENT: PERRL/EOMI, Pharynx Normal Neck: Non Tender, Supple Respiratory: Lungs Clear, Normal Breath Sounds Cardiovascular: Regular Rate, Rhythm, No Murmur Gastrointestinal: Normal Bowel Sounds, Non Tender, Soft Extremity: Normal Range of Motion, Non Tender, Pedal Edema Neurologic/Psychiatric: Alert, Oriented x3 Skin: Normal Color, Warm/Dry A/P-Cardiology Admission Diagnosis Malignant hypertension Chest pain Acute congestive heart failure Assessment/Plan Malignant hypertension, will continue losartan, doxazosin, bisoprolol-hctz, hydralazine, isosorbide. Evaluate renal arterial Doppler, will add amlodipine 5mg daily and monitor response. Continue daily ASA, Plavix and add Lovenox. Coronary artery disease, chest pain, probably secondary to hypertension. Troponin <0.028. Cardiac cath in September 2019 revealed 70% in-stent restenosis of LAD with successful balloon angioplasty, LAD 50% bifurcation stenosis, left circumflex 50% stenosis in proximal to mid-portion with 70% stenosis in mid to distal fortion with flow reserve 0.89, patent stent in distal portion of RCA with mild to moderate diffuse disease. Monitor cardiac enzymes. Echo in March 2020 showed EF 55-60%, grade 1 diastolic dysfunction, mild MR, PASP 30-35 mmHg. MPI in March 2020 showed no ischemia or infarction with LVEF 64% CANDICE. Acute congestive heart failure, no prior history. BNP 523.6. Previous echo in March 2020 with results as above. IV Lasix with CMP in am. Hyperlipidemia, intolerant to statin, evaluate lipids DMII, non-insulin dependent, per primary team. CKD, stage 3, per primary team. Renally dose all medications and monitor closely for response. Hx of renal stents in 2013, per Dr. Whitley in [place], [place]. Renal stenoses seen on renal angio 03/09/16. Will order renal arterial doppler to evaluate. Myeloproliferative disorder with thrombocytosis, leukocytosis, chronic anemia with JAK2 mutation, per oncology. Extensive family history of heart disease, stroke. Clinical Quality Measures AMI/AHF: ASA po Prior to arrival: Yes Supervisory-Addendum Brief Verification & Attestation Participated in pt care: history, MDM, physical Personally performed: exam, history, MDM, supervision of care Care discussed with: Medical Student Procedures: n/a Results interpretation: Verified all documentation Verification and Attestation of Medical Student E/M Service A medical student performed and documented this service in my presence. I reviewed and verified all information documented by the medical student and made modifications to such information, when appropriate. I personally performed the physical exam and medical decision making. I have made few modifications to the note and adjusted the plan Evaluate renal arterial Doppler study Add Norvasc, monitor blood pressure Reviewed home medication and continue medication. Monitor cardiac enzymes and EKG Ashley Diez, Oct 07, 2020,16:43 RICHARD BERMUDEZ, Oct 07, 2020 13:19 ASHLEY DIEZ MD Oct 07, 2020 16:45
[2020-10-07] MEDS ORDERED: morphine INJ 4 MG/ML 1 ML (VIAL/SYRINGE) IV PRN (13:45)
[2020-10-07] MEDS ORDERED: CATHETER FLUSH 10 ML SYR IV PRN (13:45)
[2020-10-07] MEDS ORDERED: ONDANSETRON 4 MG/2 ML (SDV) Z0FRAN IVP PRN (13:45)
[2020-10-07] MEDS ORDERED: ONDANSETRON 4 MG/2 ML (SDV) Z0FRAN IV PRN (13:45)
[2020-10-07] MEDS: CATHETER FLUSH 10 ML SYR IV SCH ×2 (14:40→20:11)
[2020-10-07] MEDS ORDERED: HYDR-3923 PO (14:56)
[2020-10-07] MEDS ORDERED: ALB0.5V INH (15:38)
[2020-10-07] MEDS ORDERED: GABA300C PO (15:38)
[2020-10-07] MEDS ORDERED: CLOP75TA28 PO (15:38)
[2020-10-07] MEDS ORDERED: DOXA8TAB73 PO (15:38)
[2020-10-07] MEDS ORDERED: ASPI-1238 PO (15:38)
[2020-10-07] MEDS ORDERED: ACET-2267 PO (15:38)
[2020-10-07] MEDS ORDERED: amLODIPine 5 MG (NORVASC) TAB PO NR (16:45)
[2020-10-07] MEDS: GLIMEPIRIDE 4 MG (AMARYL) TAB PO SCH (17:35)
[2020-10-07] MEDS: hydrALAZINE (APRESOLINE) 25 MG TAB PO SCH (20:11)
[2020-10-07] MEDS: doxAzosin 4 MG (CARDURA) TAB PO SCH (20:11)
[2020-10-07] MEDS: GABAPENTIN 300 MG (NEURONTIN) CAP PO SCH (20:11)
--- NOTE | 2020-10-07 20:27 | History & Physical-Hospitalist ---
History of Present Illness HPI/Chief Complaint Mckenzie Malhotra is a 75 year old female with PMH HTN, renal artery stenosis, CAD, HFpEF, T2DM, CKD, myeloproliferative disorder, who presented with high blood pressure and chest pain. She reports that she has been having issues with her blood pressures for quite a while. She tried to call her doctor but was unsuccessful. She was set up with an appointment this Wednesday, but her condition worsened. She reports chest tightness with radiation to her back. She reports associated diaphoresis. She denies nausea. She denies shortness of breath. She reports orthopnea. She denies PND. She has had lower extremity swelling. Source: patient Exam Limitations: no limitations Date Seen 10/07/20 Time Seen by a Provider: 15:00 Attending Physician Dali Ryan MD PCP Tone Perez MD Referring Physician Date of Admission Oct 07, 2020 at 12:03 Home Medications & Allergies Home Medications Reviewed patient Home Medication Reconciliation performed by pharmacy medication reconciliations pulmonary function technician and/or nursing. Patients Allergies have been reviewed. Allergies Allergies Coded Allergies atorvastatin calcium (Unverified Allergy, Unknown, 07/27/16) cefdinir (Verified Allergy, Unknown, 09/01/17) codeine (Unverified Allergy, Unknown, 07/27/16) doxycycline (Verified Allergy, Unknown, 09/01/17) escitalopram oxalate (Unverified Allergy, Unknown, 07/27/16) niacin (Unverified Allergy, Unknown, 07/27/16) oxycodone (Verified Allergy, Unknown, 09/01/17) simvastatin (Unverified Allergy, Unknown, 07/27/16) tramadol (Unverified Allergy, Unknown, 07/27/16) acetaminophen (Verified Adverse Reaction, Mild, 10/17/19) TYLENOL WITH CODEINE MAKE PT ITCH. Patient Social History Marrital Status: Tobacco Use?: No Smoking Status: Former Smoker Use of E-Cig and/or Vaping dev: No Substance use?: No Alcohol Use?: Yes Pt stated abuse/neglect: No Immunizations Up To Date Influenza Vaccine Up-to-Date: Yes; Up-to-Date Hepatitis A: No Hepatitis B: No TB Skin Test: Negative Date of Pneumonia Vaccine: May 04, 2016 Current Status Do you have an Advance Directi: No Communicates: Verbally Primary Language: Indonesian Preferred Spoken Language: Indonesian Is interpretation needed?: No Sensory deficits: Hearing impairment Implanted or Applied Medical D: CPAP Past Medical History HTN Renal artery stenosis CAD T2DM CKD HLD Myeloproliferative disorder HFpEF Family Medical History Family Hx: Non-contributory Review of Systems Constitutional: no symptoms reported EENTM: no symptoms reported Respiratory: orthopnea, short of breath Cardiovascular: chest pain Gastrointestinal: no symptoms reported Genitourinary: no symptoms reported Musculoskeletal: back pain Skin: no symptoms reported Psychiatric/Neurological: No Symptoms Reported Physical Exam Physical Exam Vital Signs Vital Signs - First Documented 10/07/20 10/07/20 09:32 12:33 Temp 36.9 Pulse 82 Resp 18 B/P (MAP) 243/120 (161) Pulse Ox 95 O2 Delivery Room Air Capillary Refill : Less Than 3 Seconds Height, Weight, BMI Height: 5'2.00" Weight: 166lbs. 6.0oz. 75.519951mi; 31.16 BMI Method:Stated General Appearance: No Apparent Distress, Obese HEENT: PERRL/EOMI, Pharynx Normal Neck: Normal Inspection, Supple Respiratory: Lungs Clear, Normal Breath Sounds, No Respiratory Distress Cardiovascular: Regular Rate, Rhythm, No Murmur Gastrointestinal: Normal Bowel Sounds, Non Tender, Soft Extremity: Normal Inspection, Non Tender, Pedal Edema Neurologic/Psychiatric: Alert, Oriented x3, No Motor/Sensory Deficits, Normal Mood/Affect Skin: Normal Color, Warm/Dry Results Results/Procedures Labs Laboratory Tests 10/07/20 09:45 Patient resulted labs reviewed. Imaging: Reviewed Imaging Report Assessment/Plan Admission Diagnosis Hypertensive emergency Admission Status: Inpatient Order (span 2 midnights) Reason for Inpatient Admission: HTN requiring IV medications Heart failure requiring IV diuresis and cardiology evaluation Assessment and Plan Hypertensive emergency Renal artery stenosis Acute heart failure with preserved ejection fraction Continue home meds IV Hydralazine as needed Cardiology consulted, appreciate assistance Monitor on telemetry Renal artery ultrasound Lasix CAD T2DM Continue home meds Myeloproliferative disorder Obesity Clinically significant, no acute management needs DVT prophylaxis: Lovenox Diagnosis/Problems Diagnosis/Problems (1) Hypertensive emergency Status: Acute (2) (HFpEF) heart failure with preserved ejection fraction Status: Acute (3) Renal artery stenosis Status: Chronic (4) CAD (coronary artery disease) Status: Chronic (5) T2DM (type 2 diabetes mellitus) Status: Chronic (6) Myeloproliferative disorder Status: Chronic (7) Obesity Status: Chronic Clinical Quality Measures AMI/AHF: ASA po Prior to arrival: Yes DALI RYAN MD Oct 07, 2020 20:27
[2020-10-07] MEDS ORDERED: NON-FORMULARY MEDICATION 1 EA EA (Doxazosin Mesylate 8 MG) PO SCH (21:00)
[2020-10-07] MEDS: hydrALAZINE (APESOLINE) 20 MG/ML VIAL IV PRN (21:31)
[2020-10-08] VITALS (9 sets, daily range): BP systolic 104–196; BP diastolic 48–85
[2020-10-08] MEDS ORDERED: cloNIDine 0.1 MG (CATAPRES) TAB PO ONE (00:30)
[2020-10-08] MEDS: hydrALAZINE (APESOLINE) 20 MG/ML VIAL IV PRN (02:10)
[2020-10-08] MEDS: NITROGLYCERIN 0.4 MG SL TABS BTL 25'S SL PRN ×2 (02:15→03:35)
[2020-10-08 03:35] LABS: BASOPHILS # (AUTO) 0.1 10^3/uL (0.0-0.1); BASOPHILS % (AUTO) 1 % (0-10); EOSINOPHILS # (AUTO) 0.3 10^3/uL (0.0-0.3); EOSINOPHILS % (AUTO) 2 % (0-10); HEMATOCRIT 41 % (35-52); HEMOGLOBIN 12.7 g/dL (11.5-16.0); LYMPHOCYTES # (AUTO) 1.3 10^3/uL (1.0-4.0); LYMPHOCYTES % (AUTO) 10 % (12-44); MEAN CORPUSCULAR HEMOGLOBIN 29 pg (25-34); MEAN CORPUSCULAR HGB CONC 31 g/dL (32-36); MEAN CORPUSCULAR VOLUME 93 fL (80-99); MEAN PLATELET VOLUME 10.5 fL (9.0-12.2); MONOCYTES # (AUTO) 0.8 10^3/uL (0.0-1.0); MONOCYTES % (AUTO) 6 % (0-12); NEUTROPHILS # (AUTO) 10.8 10^3/uL (1.8-7.8); NEUTROPHILS % (AUTO) 81 % (42-75); PLATELET COUNT 379 10^3/uL (130-400); WHITE BLOOD COUNT 13.4 10^3/uL (4.3-11.0)
[2020-10-08 03:46] LABS: POTASSIUM 3.9 MMOL/L (3.6-5.0)
[2020-10-08 03:47] LABS: CALCIUM 9.5 MG/DL (8.5-10.1)
[2020-10-08 03:51] LABS: CREATININE SERUM 1.92 MG/DL (0.60-1.30)
[2020-10-08 04:12] LABS: TRIGLYCERIDES 230 MG/DL (<150); VLDL CHOLESTEROL 46 MG/DL (5-40)
[2020-10-08 04:17] LABS: CHOLESTEROL 156 MG/DL (< 200)
[2020-10-08 04:18] LABS: HDL CHOLESTEROL 26 MG/DL (40-60)
[2020-10-08] MEDS: CATHETER FLUSH 10 ML SYR IV SCH ×3 (06:08→22:28)
[2020-10-08] MEDS: ISOSORBIDE MONONITRATE 60 MG (IMDUR) TAB PO SCH (06:08)
[2020-10-08] MEDS: CLOPIDOGREL 75 MG (PLAVIX) TABLET PO SCH (08:59)
[2020-10-08] MEDS ORDERED: HYDROCHLOROTHIAZIDE 25 MG (HCTZ) TAB PO SCH (09:00)
[2020-10-08] MEDS ORDERED: amLODIPine 5 MG (NORVASC) TAB PO SCH (09:00)
[2020-10-08] MEDS: GABAPENTIN 300 MG (NEURONTIN) CAP PO SCH ×3 (09:00→22:28)
[2020-10-08] MEDS ORDERED: HCTZ PO SCH (09:00)
[2020-10-08] MEDS ORDERED: ASPIRIN E.C. 81 MG (ECOTRIN) TAB PO SCH (09:00)
[2020-10-08] MEDS: ASPIRIN E.C. 81 MG (ECOTRIN) TAB PO SCH (09:00)
[2020-10-08] MEDS ORDERED: BISOPROLOL FUMARATE PO SCH (09:00)
[2020-10-08] MEDS ORDERED: [UNRECOGNIZED DRUG - OTHER] PO SCH (09:00)
[2020-10-08] MEDS: FUROSEMIDE 20 MG (LASIX) TAB PO SCH (09:00)
[2020-10-08] MEDS: PANTOPRAZOLE 40 MG (PROTONIX) TAB PO SCH (09:00)
[2020-10-08] MEDS ORDERED: NON-FORMULARY MEDICATION 1 EA EA (Isosorbide Mononitrate (Isosorbide Mononitrate ER) 120 M PO SCH (09:00)
[2020-10-08] MEDS: doxAzosin 4 MG (CARDURA) TAB PO SCH ×2 (09:01→22:28)
[2020-10-08] MEDS: hydrALAZINE (APRESOLINE) 25 MG TAB PO SCH (09:01)
[2020-10-08] MEDS: LOSARTAN 100 MG (COZAAR) TABLET PO SCH (09:01)
[2020-10-08] MEDS: GLIMEPIRIDE 4 MG (AMARYL) TAB PO SCH ×2 (09:01→18:10)
[2020-10-08] MEDS: BISOPROLOL 5 MG TAB (ZEBETA) PO SCH (09:02)
--- NOTE | 2020-10-08 09:03 | Cardiology Progress Note ---
Subjective Date Seen by Provider: Oct 08, 2020 Time Seen by Provider: 07:30 Subjective/Events-last exam Ms. Malhotra was seen and examined this am in the cardiac stepdown unit. The renal Arterial Doppler was performed at that time. Denies any chest pain or shortness of breath. States her headache is improved. Review of Systems General: No Chills, No Night Sweats, No Fatigue, No Malaise, No Appetite, No Other HEENT: No Head Aches, No Visual Changes, No Eye Pain, No Ear Pain, No Dysphasia, No Sinus Congestion, No Post Nasal Drip, No Sore Throat, No Other Pulmonary: No Dyspnea, No Cough, No Pleuritic Chest Pain, No Other Cardiovascular: No: Chest Pain, Palpitations, Orthopnea, Paroxysmal Noc. Dyspnea, Edema, Lt Headedness, Other Objective-Cardiology Exam Last Set of Vital Signs Vital Signs 10/08/20 08:30 Temp 37.0 Pulse 69 Resp 16 B/P (MAP) 135/59 (84) Pulse Ox 91 O2 Delivery Room Air Capillary Refill : Less Than 3 Seconds I&O Intake and Output 10/08/20 00:00 Intake Total 240 ml Balance 240 ml Intake Oral 240 ml # Voids 3 Daily Weight Change No General: Alert, Oriented X3, Cooperative HEENT: PERRLA Neck: Supple Lungs: Clear to Auscultation, Normal Air Movement Heart: Regular Rate, Normal S1, Normal S2 Abdomen: Normal Bowel Sounds, Soft, No Tenderness Extremities: No Clubbing, No Edema Skin: No Rashes Neuro: Normal Speech Psych/Mental Status: Mental Status NL, Mood NL Results Lab Laboratory Tests 10/08/20 03:20 A/P-Cardiology Admission Diagnosis Malignant hypertension Chest pain Acute congestive heart failure Assessment/Plan Malignant hypertension, will continue losartan, doxazosin, bisoprolol-hctz, hydralazine, isosorbide. Blood pressure is better today, I am increasing amlodipine to 10 mg daily and changing hydralazine to clonidine 0.1 mg twice daily and evaluate tolerance and response. Possible discharge today or tomorrow based on her blood pressure Renal arterial Doppler study did not show any significant obstructive disease, the origin of the renal artery was not well visualized. There is no significant Doppler velocities suggestive of obstructive disease. Continue with conservative management Coronary artery disease, chest pain, probably secondary to hypertension. Troponin <0.028. Cardiac cath in September 2019 revealed 70% in-stent restenosis of LAD with successful balloon angioplasty, LAD 50% bifurcation stenosis, left circumflex 50% stenosis in proximal to mid-portion with 70% stenosis in mid to distal fortion with flow reserve 0.89, patent stent in distal portion of RCA with mild to moderate diffuse disease. Cardiac markers are negative Echo in March 2020 showed EF 55-60%, grade 1 diastolic dysfunction, mild MR, PASP 30-35 mmHg. MPI in March 2020 showed no ischemia or infarction with LVEF 64% CANDICE. Acute congestive heart failure, no prior history. BNP 523.6. Previous echo in March 2020 with results as above. Continue with diuretics and monitor tolerance and response Hyperlipidemia, intolerant to statin, triglyceride 230, total cholesterol 156, LDL 99, HDL 26. Started on Crestor, continue to monitor DMII, non-insulin dependent, per primary team. CKD, stage 3, per primary team. Renally dose all medications and monitor closely for response. Hx of renal stents in 2013, per Dr. Whitley in [place], [place]. Renal stenoses seen on renal angio 03/09/16. Renal arterial doppler report pending. Myeloproliferative disorder with thrombocytosis, leukocytosis, chronic anemia with JAK2 mutation, per oncology. Extensive family history of heart disease, stroke. Clinical Quality Measures AMI/AHF: ASA po Prior to arrival: Yes Supervisory-Addendum Brief Verification & Attestation Participated in pt care: history, MDM, physical Personally performed: exam, history, MDM, supervision of care Care discussed with: Medical Student Procedures: n/a Results interpretation: Verified all documentation Verification and Attestation of Medical Student E/M Service A medical student performed and documented this service in my presence. I reviewed and verified all information documented by the medical student and made modifications to such information, when appropriate. I personally performed the physical exam and medical decision making. I made few modification to the note using italic font Ashley Diez, Oct 08, 2020,10:04 RICHARD BERMUDEZ, Oct 08, 2020 09:03 ASHLEY DIEZ MD Oct 08, 2020 10:07
--- NOTE | 2020-10-08 09:34 | Diagnostic Imaging Report ---
Renal arterial Doppler ultrasound INDICATION: Hypertension There are no prior ultrasound examinations available for comparison. Both kidneys were identified. The right kidney measures 9.5 x 4.4 x 3.4 cm while the left kidney is estimated to be 10.2 x 6.0 x 5.3 cm. There is no evidence for a solid renal mass or for hydronephrosis of either kidney. The renal cortices are normal in thickness and echogenicity. There is no shadowing from the kidneys to suggest nephrolithiasis. Spectral and color-flow imaging of the aorta and the renal arteries was performed. There is no evidence for elevation of the renal artery to aorta ratios to indicate a hemodynamically significant stenosis. However the origin of the left renal artery was obscured by bowel gas. The bladder was imaged during the course exam and the bladder is essentially decompressed and consequently could not be evaluated. IMPRESSION: 1. There is no evidence for a solid renal mass or for an acute abnormality of either kidney. 2. There is no sign of renal artery stenosis although the origin of the left renal artery was not well visualized. If further study is desired, then CTA of the aorta and renal arteries would be recommended. 3. The bladder is decompressed and could not be evaluated. Dictated by: Dictated on workstation # [id number]
[2020-10-08] MEDS ORDERED: amLODIPine 5 MG (NORVASC) TAB PO NR (10:00)
[2020-10-08] MEDS: cloNIDine 0.1 MG (CATAPRES) TAB PO SCH ×2 (10:37→22:28)
--- NOTE | 2020-10-08 11:40 | Progress Note - Hospitalist ---
Subjective HPI/CC On Admission Date Seen by Provider: Oct 08, 2020 Time Seen by Provider: 09:40 Mckenzie Malhotra is a 75 year old female with PMH HTN, renal artery stenosis, CAD, HFpEF, T2DM, CKD, myeloproliferative disorder, who presented with high blood pressure and chest pain. She reports that she has been having issues with her blood pressures for quite a while. She tried to call her doctor but was unsuccessful. She was set up with an appointment this Wednesday, but her condition worsened. She reports chest tightness with radiation to her back. She reports associated diaphoresis. She denies nausea. She denies shortness of haile ath. She reports orthopnea. She denies PND. She has had lower extremity swelling. Subjective/Events-last exam She is feeling well today. She is not having any chest pain. She is not having any trouble breathing. She has no other complaints or concerns. Objective Exam Vital Signs Vital Signs Date Time Temp Pulse Resp B/P (MAP) Pulse Ox O2 Delivery O2 Flow Rate FiO2 10/08/20 08:30 37.0 69 16 135/59 (84) 91 Room Air Capillary Refill : Less Than 3 Seconds General Appearance: No Apparent Distress, Obese Respiratory: Lungs Clear, Normal Breath Sounds, No Respiratory Distress Cardiovascular: Regular Rate, Rhythm, No Edema, No Murmur Gastrointestinal: Normal Bowel Sounds, Non Tender, Soft Extremity: Normal Inspection, Non Tender, No Pedal Edema Neurologic/Psychiatric: Alert, Oriented x3, No Motor/Sensory Deficits, Normal Mood/Affect Skin: Normal Color, Warm/Dry Results/Procedures Lab Laboratory Tests 10/08/20 03:20 Patient resulted labs reviewed. Imaging: Reviewed Imaging Report Assessment/Plan Assessment and Plan Assess & Plan/Chief Complaint Hypertensive emergency Renal artery stenosis Acute heart failure with preserved ejection fraction Chronic kidney disease, stage 4 Continue home meds IV Hydralazine as needed Cardiology consulted, appreciate assistance Renal artery ultrasound showed no evidence of renal artery stenosis Increased Amlodipine Transitioned from Hydralazine to Clonidine Transitioned from HCTZ to Lasix CAD T2DM Continue home meds Myeloproliferative disorder Obesity Clinically significant, no acute management needs DVT prophylaxis: Lovenox Diagnosis/Problems Diagnosis/Problems (1) Hypertensive emergency Status: Acute (2) (HFpEF) heart failure with preserved ejection fraction Status: Acute (3) Renal artery stenosis Status: Chronic (4) CAD (coronary artery disease) Status: Chronic (5) T2DM (type 2 diabetes mellitus) Status: Chronic (6) Myeloproliferative disorder Status: Chronic (7) Obesity Status: Chronic (8) CKD (chronic kidney disease), stage IV Status: Acute Clinical Quality Measures AMI/AHF: ASA po Prior to arrival: Yes DALI RYAN MD Oct 08, 2020 11:40
[2020-10-09 00:45] VITALS: BP 145/59
[2020-10-09 04:18] VITALS: BP 156/67
[2020-10-09] MEDS: CATHETER FLUSH 10 ML SYR IV SCH (06:19)
[2020-10-09 06:32] VITALS: BP 121/52
[2020-10-09] MEDS: ISOSORBIDE MONONITRATE 60 MG (IMDUR) TAB PO SCH (06:36)
[2020-10-09 07:36] VITALS: BP 113/58
--- NOTE | 2020-10-09 07:51 | Cardiology Progress Note ---
Subjective Date Seen by Provider: Oct 09, 2020 Time Seen by Provider: 07:20 Subjective/Events-last exam Ms. Malhotra was seen and examined in the cardiac stepdown unit this morning. Denies any chest pain or shortness of breath. States she is feeling much better than on admission. Does state she is having some left knee pain but believes this is attributed to sleeping in the hospital bed and having reduced movement during her stay. Objective-Cardiology Exam Last Set of Vital Signs Vital Signs 10/09/20 10/09/20 07:36 09:00 Temp 36.8 Pulse 59 Resp 18 B/P (MAP) 113/58 (76) Pulse Ox 91 O2 Delivery Room Air Capillary Refill : Less Than 3 Seconds I&O Intake and Output 10/09/20 00:00 Intake Total 510 ml Output Total 1070 ml Balance -560 ml Intake Oral 510 ml Output Urine Total 1070 ml # Voids 1 General: Alert, Oriented X3, Cooperative HEENT: PERRLA Neck: Supple Lungs: Clear to Auscultation, Normal Air Movement Heart: Regular Rate, Normal S1, Normal S2 Abdomen: Normal Bowel Sounds, Soft, No Tenderness Extremities: No Clubbing, No Edema Skin: No Rashes Neuro: Normal Speech Psych/Mental Status: Mental Status NL, Mood NL Results Lab Laboratory Tests 10/09/20 08:49 A/P-Cardiology Admission Diagnosis Malignant hypertension Chest pain Acute congestive heart failure Assessment/Plan Malignant hypertension, blood pressure is better controlled today. Continue on current medication and okay for discharge Renal arterial Doppler study did not show any significant obstructive disease, the origin of the renal artery was not well visualized. There is no significant Doppler velocities suggestive of obstructive disease. Continue with conservative management. Coronary artery disease, chest pain, probably secondary to hypertension. Troponin <0.028. Cardiac cath in September 2019 revealed 70% in-stent restenosis of LAD with successful balloon angioplasty, LAD 50% bifurcation stenosis, left circumflex 50% stenosis in proximal to mid-portion with 70% stenosis in mid to distal fortion with flow reserve 0.89, patent stent in distal portion of RCA with mild to moderate diffuse disease. Cardiac markers normal on admission. Echo in March 2020 showed EF 55-60%, grade 1 diastolic dysfunction, mild MR, PASP 30-35 mmHg. MPI in March 2020 showed no ischemia or infarction with LVEF 64% CANDICE. Acute congestive heart failure, no prior history. BNP 523.6. Previous echo in March 2020 with results as above. Continue with diuretics and monitor tolerance and response. Hyperlipidemia, intolerant to statin, triglyceride 230, total cholesterol 156, LDL 99, HDL 26. Continue Crestor, continue to monitor response. F/u lipid panel in 3 months. DMII, non-insulin dependent, per primary team. CKD, stage 3, per primary team. Renally dose all medications and monitor closely for response. Hx of renal stents in 2013, per Dr. Whitley in [place], [place]. Renal stenoses seen on renal angio 03/09/16. Renal arterial doppler report as above. Myeloproliferative disorder with thrombocytosis, leukocytosis, chronic anemia with JAK2 mutation, per oncology. Extensive family history of heart disease, stroke. Clinical Quality Measures AMI/AHF: ASA po Prior to arrival: Yes Supervisory-Addendum Brief Verification & Attestation Participated in pt care: history, MDM, physical Personally performed: exam, history, MDM, supervision of care Care discussed with: Medical Student Procedures: n/a Results interpretation: Verified all documentation Verification and Attestation of Medical Student E/M Service A medical student performed and documented this service in my presence. I reviewed and verified all information documented by the medical student and made modifications to such information, when appropriate. I personally performed the physical exam and medical decision making. Ashley Diez, Oct 09, 2020,16:49 RICHARD BERMUDEZ, Oct 09, 2020 07:51 ASHLEY DIEZ MD Oct 09, 2020 16:50
[2020-10-09] MEDS: ASPIRIN E.C. 81 MG (ECOTRIN) TAB PO SCH (08:22)
[2020-10-09] MEDS: CLOPIDOGREL 75 MG (PLAVIX) TABLET PO SCH (08:22)
[2020-10-09] MEDS: PANTOPRAZOLE 40 MG (PROTONIX) TAB PO SCH (08:22)
[2020-10-09] MEDS: FUROSEMIDE 20 MG (LASIX) TAB PO SCH (08:22)
[2020-10-09] MEDS: GABAPENTIN 300 MG (NEURONTIN) CAP PO SCH (08:22)
[2020-10-09 08:56] LABS: BASOPHILS # (AUTO) 0.1 10^3/uL (0.0-0.1); BASOPHILS % (AUTO) 1 % (0-10); EOSINOPHILS # (AUTO) 0.4 10^3/uL (0.0-0.3); EOSINOPHILS % (AUTO) 3 % (0-10); HEMATOCRIT 40 % (35-52); HEMOGLOBIN 12.2 g/dL (11.5-16.0); LYMPHOCYTES # (AUTO) 1.4 10^3/uL (1.0-4.0); LYMPHOCYTES % (AUTO) 9 % (12-44); MEAN CORPUSCULAR HEMOGLOBIN 29 pg (25-34); MEAN CORPUSCULAR HGB CONC 31 g/dL (32-36); MEAN CORPUSCULAR VOLUME 96 fL (80-99); MEAN PLATELET VOLUME 10.6 fL (9.0-12.2); MONOCYTES % (AUTO) 6 % (0-12); NEUTROPHILS # (AUTO) 12.4 10^3/uL (1.8-7.8); NEUTROPHILS % (AUTO) 81 % (42-75); PLATELET COUNT 379 10^3/uL (130-400); WHITE BLOOD COUNT 15.4 10^3/uL (4.3-11.0)
[2020-10-09] MEDS ORDERED: amLODIPine 10 MG (NORVASC) TAB PO SCH (09:00)
[2020-10-09 09:14] LABS: CALCIUM 8.9 MG/DL (8.5-10.1); CREATININE SERUM 2.41 MG/DL (0.60-1.30); POTASSIUM 4.2 MMOL/L (3.6-5.0)
[2020-10-09] MEDS: doxAzosin 4 MG (CARDURA) TAB PO SCH (09:18)
[2020-10-09] MEDS: GLIMEPIRIDE 4 MG (AMARYL) TAB PO SCH (09:18)
[2020-10-09] MEDS: LOSARTAN 100 MG (COZAAR) TABLET PO SCH (09:18)
[2020-10-09] MEDS: BISOPROLOL 5 MG TAB (ZEBETA) PO SCH (09:19)
[2020-10-09] MEDS: cloNIDine 0.1 MG (CATAPRES) TAB PO SCH (09:21)
[2020-10-09 09:30] LABS: EOSINOPHILS % (MANUAL) 3 %; LYMPHOCYTES % (MANUAL) 11 %; MONOCYTES % (MANUAL) 6 %; NEUTROPHILS % (MANUAL) 80 %; POLYCHROMASIA SLIGHT
[2020-10-09] MEDS ORDERED: FURO20TA4 PO (10:21)
[2020-10-09] MEDS ORDERED: CLN.1T PO (10:21)
[2020-10-09] MEDS ORDERED: AMLO-251 PO (10:21)
[2020-10-09] MEDS ORDERED: BISO10TA PO (10:21)
--- NOTE | 2020-10-09 10:29 | Discharge Summary ---
Discharge Summary Hospital Course Was the Problem List Reviewed?: Yes Problems/Dx: (1) Hypertensive emergency Status: Acute (2) (HFpEF) heart failure with preserved ejection fraction Status: Acute (3) Renal artery stenosis Status: Chronic (4) CAD (coronary artery disease) Status: Chronic (5) T2DM (type 2 diabetes mellitus) Status: Chronic (6) Myeloproliferative disorder Status: Chronic (7) Obesity Status: Chronic (8) CKD (chronic kidney disease), stage IV Status: Acute Hospital Course Date of Admission: Oct 07, 2020 at 12:03 Admission Diagnosis : Hypertensive emergency Family Physician/Provider: Rajwinder Perez MD Date of Discharge: 10/09/20 Discharge Diagnosis: Hypertensive emergency Hospital Course: Mckenzie Malhotra is a 75-year-old female with past medical history of hypertension, type 2 diabetes mellitus, chronic kidney disease, coronary artery disease, my eloproliferative disorder, obesity, renal artery stenosis, who presented with elevated blood pressure and chest pain and was admitted with hypertensive emergency. Cardiology was consulted and assisted with her care. Her troponins remained within normal limits. Her blood pressure improved. She was started on amlodipine and clonidine. Her hydralazine was discontinued. Due to her kidney disease, her hydrochlorothiazide was discontinued. She was started on a low- dose of Lasix. She underwent renal arteriogram which showed normal flow through the renal arteries. She was discharged home in stable condition. She should follow-up with her primary care physician in about a week. She should follow-up with cardiology as scheduled. Labs and Pending Lab Test: Laboratory Tests 10/09/20 08:49: White Blood Count 15.4H, Red Blood Count 4.19, Hemoglobin 12.2, Hematocrit 40, Mean Corpuscular Volume 96, Mean Corpuscular Hemoglobin 29, Mean Corpuscular Hemoglobin Concent 31L, Red Cell Distribution Width 16.3H, Platelet Count 379, Mean Platelet Volume 10.6, Immature Granulocyte % (Auto) 1, Neutrophils (%) (Auto) 81H, Lymphocytes (%) (Auto) 9L, Monocytes (%) (Auto) 6, Eosinophils (%) (Auto) 3, Basophils (%) (Auto) 1, Neutrophils # (Auto) 12.4H, Lymphocytes # (Auto) 1.4, Monocytes # (Auto) 1.0, Eosinophils # (Auto) 0.4H, Basophils # (Auto) 0.1, Immature Granulocyte # (Auto) 0.1, Neutrophils % (Manual) 80, Lymphocytes % (Manual) 11, Monocytes % (Manual) 6, Eosinophils % (Manual) 3, Polychromasia SLIGHT, Sodium Level 137, Potassium Level 4.2, Chloride Level 104, Carbon Dioxide Level 22, Anion Gap 11, Blood Urea Nitrogen 48H, Creatinine 2.41H , Estimat Glomerular Filtration Rate 20, BUN/Creatinine Ratio 20, Glucose Level 157H, Calcium Level 8.9 Home Meds Active Bisoprolol Fumarate 10 Mg Tablet 10 Mg PO DAILY 30 Days Furosemide 20 Mg Tablet 20 Mg PO DAILY 30 Days Amlodipine Besylate 10 Mg Tablet 10 Mg PO DAILY 30 Days Clonidine HCl 0.1 Mg Tablet 0.1 Mg PO BID 30 Days Reported Tylenol Extra Strength (Acetaminophen) 500 Mg Tablet 500-1,000 Mg PO Q6H PRN Aspirin EC (Aspirin) 81 Mg Tablet.dr 81 Mg PO DAILY Albuterol Sulfate 2.5 Mg/0.5 Ml Vial.neb 2.5 Mg INH Q6H PRN Neurontin (Gabapentin) 300 Mg Capsule 300 Mg PO 0800,1500,2200 Doxazosin Mesylate 8 Mg Tablet 8 Mg PO BID Clopidogrel (Clopidogrel Bisulfate) 75 Mg Tablet 75 Mg PO DAILY Hydralazine HCl 25 Mg Tablet 25 Mg PO BID Glimepiride 4 Mg Tablet 4 Mg PO BID Bisoprolol-Hctz 10-6.25 mg Tab (Bisoprolol Fumarate/Hctz) 1 Each Tablet 1 Each PO DAILY Pantoprazole Sodium 40 Mg Tablet.dr 40 Mg PO DAILY Losartan Potassium 100 Mg Tablet 100 Mg PO DAILY Isosorbide Mononitrate ER (Isosorbide Mononitrate) 120 Mg Tab.er.24h 120 Mg PO DAILY Assessment/Pt Instructions Take medications as prescribed. Follow-up with your primary care physician. Follow-up with cardiology. Return with worsening chest pain, shortness of breath, lightheadedness/dizziness, or if you feel like you are getting worse. Discharge Planning: <30 minutes discharge planning Discharge Instructions Discharge Diet: Low Sodium Diet Activity as Tolerated: Yes Consultations Cardiology Discharge Physical Examination Vital Signs Vital Signs Date Time Temp Pulse Resp B/P (MAP) Pulse Ox O2 Delivery O2 Flow Rate FiO2 10/09/20 09:00 Room Air 10/09/20 07:36 36.8 59 18 113/58 (69) 91 General Appearance: No Apparent Distress, Obese Respiratory: Lungs Clear, Normal Breath Sounds, No Respiratory Distress Cardiovascular: Regular Rate, Rhythm, No Edema, No Murmur Gastrointestinal: Normal Bowel Sounds, Non Tender, Soft Extremity: Normal Inspection, Non Tender, No Pedal Edema Skin: Normal Color, Warm/Dry Neurologic/Psychiatric: Alert, Oriented x3, No Motor/Sensory Deficits, Normal Mood/Affect Allergies: Coded Allergies: atorvastatin calcium (Unverified Allergy, Unknown, 07/27/16) cefdinir (Verified Allergy, Unknown, 09/01/17) codeine (Unverified Allergy, Unknown, 07/27/16) doxycycline (Verified Allergy, Unknown, 09/01/17) escitalopram oxalate (Unverified Allergy, Unknown, 07/27/16) niacin (Unverified Allergy, Unknown, 07/27/16) oxycodone (Verified Allergy, Unknown, 09/01/17) simvastatin (Unverified Allergy, Unknown, 07/27/16) tramadol (Unverified Allergy, Unknown, 07/27/16) acetaminophen (Verified Adverse Reaction, Mild, 10/17/19) TYLENOL WITH CODEINE MAKE PT ITCH. Copy Copies To 1: RAJWINDER PEREZ MD Discharge Summary Date of Admission Oct 07, 2020 at 12:03 Date of Discharge Discharge Date: Oct 09, 2020 Discharge Time: 10:29 Admission Diagnosis Hypertensive emergency Consults/Procedures Consulations Cardiology Discharge Diagnosis Hypertensive emergency (1) Hypertensive emergency Status: Acute (2) (HFpEF) heart failure with preserved ejection fraction Status: Acute (3) Renal artery stenosis Status: Chronic (4) CAD (coronary artery disease) Status: Chronic (5) T2DM (type 2 diabetes mellitus) Status: Chronic (6) Myeloproliferative disorder Status: Chronic (7) Obesity Status: Chronic (8) CKD (chronic kidney disease), stage IV Status: Acute Clinical Quality Measures AMI/AHF: ASA po Prior to arrival: Yes DALI RYAN MD Oct 09, 2020 10:29
== END 2020-10-09 11:20 | disposition home or self-care (01) | DRG 304 ==
LOC: EDUNIT# 09:25 → ER 09:27 → CSD 12:03
PROVIDERS: ADMIT Internal Medicine; ATTEND Internal Medicine
PROC: B418YZZ Fluoroscopy of Bilateral Renal Arteries using Other Contrast (ICD-10-PCS; principal; 2020-10-07)
DX: I16.1 Hypertensive emergency (principal); I50.31 Acute diastolic (congestive) heart failure; N18.4 Chronic kidney disease, stage 4 (severe); I13.0 Hypertensive heart and chronic kidney disease with heart failure and stage 1 through stage 4 chronic kidney disease, or unspecified chronic kidney disease; E78.00 Pure hypercholesterolemia, unspecified; I70.1 Atherosclerosis of renal artery; I25.10 Atherosclerotic heart disease of native coronary artery without angina pectoris; E11.22 Type 2 diabetes mellitus with diabetic chronic kidney disease; G70.9 Myoneural disorder, unspecified; E66.9 Obesity, unspecified; Z88.6 Allergy status to analgesic agent; Z88.8 Allergy status to other drugs, medicaments and biological substances; Z87.891 Personal history of nicotine dependence; Z68.31 Body mass index [BMI] 31.0-31.9, adult
CPT/HCPCS: 36415; 71045; 76770; 80048; 80053; 80061; 81000; 83735; 83874; 83880; 84484; 85007; 85025; 85027; 85379; 85610; 85730; 86141; 93005; 93041; 93975

== ENCOUNTER 2020-10-10 13:38 | Emergency (ER) | payer MEDICARE, OTHER ==
[~2020-10-10] VITALS: Ht 160 cm; Wt 74.8 kg
[~2020-10-10 13:38] MED LIST changes: +ACET-2267 PO; +ALB0.5V INH; +AMLO-251 PO; +ASPI-1238 PO; +BISO10TA PO; +CLN.1T PO; +CLOP75TA28 PO; +DOXA8TAB73 PO; +FURO20TA4 PO; +GABA300C PO; +HYDR-3923 PO
--- NOTE | 2020-10-10 13:59 | ED Chest Pain ---
General Chief Complaint: Cardiac/General Problems Stated Complaint: LOW BLOOD PRESSURE Source: patient Exam Limitations: no limitations History of Present Illness Date Seen by Provider: Oct 10, 2020 Time Seen by Provider: 13:50 Initial Comments To ER by private vehicle with reports of low blood pressure. She was discharged from the hospital yesterday following an admission for malignant hypertension. Upon discharge she was started on clonidine 0.1 mg twice daily, Norvasc 10 mg daily, bisoprolol 10mg daily and lasix 20mg daily. She was very fatigued yesterday and slept most of the day. Today the fatigue persisted. She denies any chest pain fevers or chills. She does report ongoing fatigue. Her blood pressures have been in the 140s at home. However this morning she had a reading that was 91/50. She called her truss driver helper office who referred her to the emergency room. Timing/Duration: 1-2 days Severity/Quality: moderate Location: central Radiation: no radiation ASA po WELLNESS SPECIALIST: No NTG SL WELLNESS SPECIALIST: No Associated Symptoms: No abdominal pain, No back pain; fatigue; No fever/chills, No nausea/vomiting, No shortness of breath Allergies and Home Medications Allergies Coded Allergies: atorvastatin calcium (Unverified Allergy, Unknown, 07/27/16) cefdinir (Verified Allergy, Unknown, 09/01/17) codeine (Unverified Allergy, Unknown, 07/27/16) doxycycline (Verified Allergy, Unknown, 09/01/17) escitalopram oxalate (Unverified Allergy, Unknown, 07/27/16) niacin (Unverified Allergy, Unknown, 07/27/16) oxycodone (Verified Allergy, Unknown, 09/01/17) simvastatin (Unverified Allergy, Unknown, 07/27/16) tramadol (Unverified Allergy, Unknown, 07/27/16) acetaminophen (Verified Adverse Reaction, Mild, 10/17/19) TYLENOL WITH CODEINE MAKE PT ITCH. Home Medications Acetaminophen 500 Mg Tablet, 500-1,000 MG PO Q6H PRN for PAIN-MODERATE (5-7), (Reported) Albuterol Sulfate 2.5 Mg/0.5 Ml Vial.neb, 2.5 MG INH Q6H PRN for SHORTNESS OF BREATH, (Reported) Amlodipine Besylate 10 Mg Tablet, 10 MG PO DAILY Prescribed by: DALI RYAN on 10/09/20 1021 Aspirin 81 Mg Tablet.dr, 81 MG PO DAILY, (Reported) Bisoprolol Fumarate 10 Mg Tablet, 10 MG PO DAILY Prescribed by: DALI RYAN on 10/09/20 1021 Clonidine HCl 0.1 Mg Tablet, 0.1 MG PO BID Prescribed by: DALI RYAN on 10/09/20 1021 Clopidogrel Bisulfate 75 Mg Tablet, 75 MG PO DAILY, (Reported) Doxazosin Mesylate 8 Mg Tablet, 8 MG PO BID, (Reported) Furosemide 20 Mg Tablet, 20 MG PO DAILY Prescribed by: DALI RYAN on 10/09/20 1021 Gabapentin 300 Mg Capsule, 300 MG PO 0800,1500,2200, (Reported) Glimepiride 4 Mg Tablet, 4 MG PO BID, (Reported) Isosorbide Mononitrate 120 Mg Tab.er.24h, 120 MG PO DAILY, (Reported) Losartan Potassium 100 Mg Tablet, 100 MG PO DAILY, (Reported) Pantoprazole Sodium 40 Mg Tablet.dr, 40 MG PO DAILY, (Reported) Patient Home Medication List Home Medication List Reviewed: Yes Review of Systems Review of Systems Constitutional: see HPI, malaise EENTM: No Symptoms Reported Respiratory: No Symptoms Reported Cardiovascular: No Symptoms Reported Gastrointestinal: No Symptoms Reported Genitourinary: No Symptoms Reported Musculoskeletal: no symptoms reported Skin: no symptoms reported Psychiatric/Neurological: No Symptoms Reported Endocrine: No Symptoms Reported Past Rwvpnxp-Tglwbx-Kwflyn Hx Patient Social History Alcohol Use: Denies Use Smoking Status: Former Smoker Type Used: Cigarettes Former Smoker, Quit: Aug 15, 2012 2nd Hand Smoke Exposure: No Recent Hopitalizations: No Immunizations Up To Date Tetanus Booster (TDap): Less than 5yrs PED Vaccines UTD: No Date of Pneumonia Vaccine: May 04, 2016 Date of Influenza Vaccine: May 08, 2019 Seasonal Allergies Seasonal Allergies: No Past Medical History Surgeries: Yes Bladder Surgery, Gallbladder, Hysterectomy, Orthopedic, Tonsillectomy Respiratory: Yes Sleep Apnea, COPD Currently Using CPAP: Yes Cardiac: Yes Coronary Artery Disease, High Cholesterol, Hypertension Neurological: No Reproductive Disorders: No Female Reproductive Disorders: Denies Sexually Transmitted Disease: No HIV/AIDS: No Genitourinary: Yes (INCONT) Gastrointestinal: Yes Chronic Diarrhea, Polyps Musculoskeletal: Yes (, CERVICAL STENOSIS) Fibromyalgia Endocrine: Yes (history of thyroid nodules) Adrenal Disease, Diabetes, Non-Insulin dep Loss of Vision: Bilateral Hearing Impairment: Hard of Hearing Psychosocial: No Integumentary: No Blood Disorders: Yes (ANEMIA, POSSIBLE EARLY LEUKEMIA) Adverse Reaction/Blood Tranf: No Family Medical History Heart Disease, Cancer, CAD Over 55 Years Old, Stroke Non-contributory Physical Exam Vital Signs Vital Signs - First Documented 10/10/20 13:53 Temp 35.6 Pulse 62 Resp 20 B/P (MAP) 144/72 (96) Pulse Ox 94 Capillary Refill : Height, Weight, BMI Height: 5'2.00" Weight: 166lbs. 6.0oz. [id number]; 31.16 BMI Method:Stated General Appearance: No Apparent Distress, WD/WN, Other (Alert and oriented GCS 15 very pleasant. No distress. Heart rate 58 sinus. Blood pressure 144/72.) Neck: Full Range of Motion, Normal Inspection Respiratory: No Accessory Muscle Use, No Respiratory Distress Cardiovascular: Regular Rate, Rhythm, Normal Peripheral Pulses Gastrointestinal: Normal Bowel Sounds, Non Tender, Soft Extremity: Normal Capillary Refill, Normal Inspection Neurologic/Psychiatric: Alert, Oriented x3 Skin: Normal Color, Warm/Dry Focused Exam Lactate Level 10/10/20 13:55: Lactic Acid Level Laboratory Tests Test 10/10/20 13:55 Progress/Results/Core Measures Results/Orders Lab Results Laboratory Tests Test 10/10/20 13:55 10/10/20 14:05 Range/Units White Blood Count 14.4 H 4.3-11.0 10^3/uL Red Blood Count 4.19 3.80-5.11 10^6/uL Hemoglobin 12.4 11.5-16.0 g/dL Hematocrit 39 35-52 % Mean Corpuscular Volume 93 80-99 fL Mean Corpuscular Hemoglobin 30 25-34 pg Mean Corpuscular Hemoglobin Concent 32 32-36 g/dL Red Cell Distribution Width 15.9 H 10.0-14.5 % Platelet Count 385 130-400 10^3/uL Mean Platelet Volume 10.3 9.0-12.2 fL Immature Granulocyte % (Auto) 1 % Neutrophils (%) (Auto) 79 H 42-75 % Lymphocytes (%) (Auto) 10 L 12-44 % Monocytes (%) (Auto) 7 0-12 % Eosinophils (%) (Auto) 3 0-10 % Basophils (%) (Auto) 1 0-10 % Neutrophils # (Auto) 11.4 H 1.8-7.8 10^3/uL Lymphocytes # (Auto) 1.4 1.0-4.0 10^3/uL Monocytes # (Auto) 0.9 0.0-1.0 10^3/uL Eosinophils # (Auto) 0.4 H 0.0-0.3 10^3/uL Basophils # (Auto) 0.1 0.0-0.1 10^3/uL Immature Granulocyte # (Auto) 0.1 0.0-0.1 10^3/uL Sodium Level 137 135-145 MMOL/L Potassium Level 4.3 3.6-5.0 MMOL/L Chloride Level 104 98-107 MMOL/L Carbon Dioxide Level 20 L 21-32 MMOL/L Anion Gap 13 5-14 MMOL/L Blood Urea Nitrogen 46 H 7-18 MG/DL Creatinine 2.10 H 0.60-1.30 MG/DL Estimat Glomerular Filtration Rate 23 BUN/Creatinine Ratio 22 Glucose Level 117 H 70-105 MG/DL Calcium Level 9.2 8.5-10.1 MG/DL Corrected Calcium 9.1 8.5-10.1 MG/DL Total Bilirubin 0.7 0.1-1.0 MG/DL Alkaline Phosphatase 92 40-136 U/L Total Protein 7.0 6.4-8.2 GM/DL Albumin 4.1 3.2-4.5 GM/DL Urine Color YELLOW Urine Clarity CLEAR Urine pH 5.0 5-9 Urine Specific Midnight 1.020 1.016-1.022 Urine Protein 1+ H NEGATIVE Urine Glucose (UA) NEGATIVE NEGATIVE Urine Ketones NEGATIVE NEGATIVE Urine Nitrite NEGATIVE NEGATIVE Urine Bilirubin NEGATIVE NEGATIVE Urine Urobilinogen 0.2 < = 1.0 MG/DL Urine Leukocyte Esterase NEGATIVE NEGATIVE Urine RBC (Auto) NEGATIVE NEGATIVE Urine RBC NONE /HPF Urine WBC NONE /HPF Urine Squamous Epithelial Cells 10-25 H /HPF Urine Crystals NONE /LPF Urine Bacteria NEGATIVE /HPF Urine Casts NONE /LPF Urine Mucus NEGATIVE /LPF Urine Culture Indicated NO My Orders Orders - SERG ARIAS MARKETING TRAFFIC MANAGER Cbc With Automated Diff (10/10/20 13:44) Comprehensive Metabolic Panel (10/10/20 13:44) Ekg Tracing (4/15/21 13:44) Ua Culture If Indicated (10/10/20 13:44) Chest 1 View, Ap/Pa Only (10/10/20 13:44) Lactic Acid Analyzer (10/10/20 13:44) Manual Differential (10/10/20 13:55) Vital Signs/I&O 10/10/20 13:53 Temp 35.6 Pulse 62 Resp 20 B/P (MAP) 144/72 (96) Pulse Ox 94 Departure Impression Primary Impression: Transient hypotension Additional Impressions: CKD (chronic kidney disease), stage IV Myeloproliferative disorder Disposition: HOME, SELF-CARE Condition: Stable Departure-Patient Inst. Decision time for Depature: 14:24 Referrals: RAJWINDER CARVAJAL MD (PCP/Family) Primary Care Physician Patient Instructions: Low Blood Pressure (DC) Add. Discharge Instructions: 1. Fatigue is a side effect of the clonidine. Blood pressure here has been fine. Call your truss driver helper to make an appointment to be seen on the first of next week for recheck. All discharge instructions reviewed with patient and/or family. Voiced understanding. Copy Copies To 1: RAJWINDER CARVJAAL MD, PETER J APRN Oct 10, 2020 13:59
[2020-10-10 14:02] LABS: BASOPHILS # (AUTO) 0.1 10^3/uL (0.0-0.1); BASOPHILS % (AUTO) 1 % (0-10); EOSINOPHILS # (AUTO) 0.4 10^3/uL (0.0-0.3); EOSINOPHILS % (AUTO) 3 % (0-10); HEMATOCRIT 39 % (35-52); HEMOGLOBIN 12.4 g/dL (11.5-16.0); LYMPHOCYTES # (AUTO) 1.4 10^3/uL (1.0-4.0); LYMPHOCYTES % (AUTO) 10 % (12-44); MEAN CORPUSCULAR HEMOGLOBIN 30 pg (25-34); MEAN CORPUSCULAR HGB CONC 32 g/dL (32-36); MEAN CORPUSCULAR VOLUME 93 fL (80-99); MEAN PLATELET VOLUME 10.3 fL (9.0-12.2); MONOCYTES # (AUTO) 0.9 10^3/uL (0.0-1.0); MONOCYTES % (AUTO) 7 % (0-12); NEUTROPHILS # (AUTO) 11.4 10^3/uL (1.8-7.8); NEUTROPHILS % (AUTO) 79 % (42-75); PLATELET COUNT 385 10^3/uL (130-400); WHITE BLOOD COUNT 14.4 10^3/uL (4.3-11.0)
[2020-10-10 14:12] LABS: BILIRUBIN,URINE NEGATIVE (NEGATIVE); CLARITY,URINE CLEAR; COLOR,URINE YELLOW; GLUCOSE, URINE (UA) NEGATIVE (NEGATIVE); KETONES,URINE NEGATIVE (NEGATIVE); LEUKOCYTE ESTERASE ,URINE NEGATIVE (NEGATIVE); NITRITE,URINE NEGATIVE (NEGATIVE); PROTEIN,URINE 1+ (NEGATIVE)
[2020-10-10 14:16] LABS: ALBUMIN 4.1 GM/DL (3.2-4.5); POTASSIUM 4.3 MMOL/L (3.6-5.0)
[2020-10-10 14:17] LABS: CALCIUM 9.2 MG/DL (8.5-10.1)
[2020-10-10 14:20] LABS: BILIRUBIN,TOTAL 0.7 MG/DL (0.1-1.0)
[2020-10-10 14:21] LABS: BACTERIA,URINE NEGATIVE /HPF
[2020-10-10 14:22] LABS: CREATININE SERUM 2.1 MG/DL (0.60-1.30)
[2020-10-10 14:36] LABS: BASOPHILS % (MANUAL) 1 %; EOSINOPHILS % (MANUAL) 3 %; LYMPHOCYTES % (MANUAL) 12 %; MONOCYTES % (MANUAL) 2 %; NEUTROPHILS % (MANUAL) 82 %
[2020-10-10 14:37] LABS: ANISOCYTOSIS SLIGHT
--- NOTE | 2020-10-10 14:44 | Diagnostic Imaging Report ---
CLINICAL INDICATION: Patient complains of feeling tired and generally weak since she started new blood pressure medications recently. Patient had one episode this morning of hypotension with blood pressure of 91/49. EXAM: Portable chest x-ray upright view. COMPARISONS: Chest x-ray dated 10/07/2020. FINDINGS: Lungs/pleura: Lungs are clear. There is no pneumothorax. There is no pleural effusion. Mediastinum: Unremarkable. Pulmonary vasculature: Unremarkable. Heart: Upper limits of normal heart size for portable projection. Coronary stent is again seen. Bones/extrathoracic soft tissue: Unremarkable. IMPRESSION: There is no radiographic evidence of acute cardiopulmonary process. Dictated by: Dictated on workstation # [id number]
[2020-10-10 15:05] VITALS: BP 132/60
== END 2020-10-10 15:05 | disposition home or self-care (01) ==
LOC: EDUNIT# 13:38 → ER 13:39
DX: I95.89 Other hypotension (principal); I12.9 Hypertensive chronic kidney disease with stage 1 through stage 4 chronic kidney disease, or unspecified chronic kidney disease; N18.4 Chronic kidney disease, stage 4 (severe); C94.6 Myelodysplastic disease, not elsewhere classified; E11.22 Type 2 diabetes mellitus with diabetic chronic kidney disease; I25.10 Atherosclerotic heart disease of native coronary artery without angina pectoris; E78.00 Pure hypercholesterolemia, unspecified; M79.7 Fibromyalgia; J44.9 Chronic obstructive pulmonary disease, unspecified; Z87.891 Personal history of nicotine dependence; Z79.82 Long term (current) use of aspirin; Z79.02 Long term (current) use of antithrombotics/antiplatelets; Z79.899 Other long term (current) drug therapy; Z79.84 Long term (current) use of oral hypoglycemic drugs; Z88.1 Allergy status to other antibiotic agents; Z88.5 Allergy status to narcotic agent; Z88.8 Allergy status to other drugs, medicaments and biological substances
CPT/HCPCS: 36415; 71045; 80053; 81000; 85007; 85027; 93005

== ENCOUNTER 2020-11-15 15:01 | Observation (INO) | payer MEDICARE, OTHER ==
[~2020-11-15] VITALS: Ht 160 cm; Wt 72.5 kg
[2020-11-15 15:29] LABS: BASOPHILS # (AUTO) 0.1 10^3/uL (0.0-0.1); BASOPHILS % (AUTO) 1 % (0-10); EOSINOPHILS # (AUTO) 0.2 10^3/uL (0.0-0.3); EOSINOPHILS % (AUTO) 2 % (0-10); HEMATOCRIT 40 % (35-52); HEMOGLOBIN 12.7 g/dL (11.5-16.0); LYMPHOCYTES # (AUTO) 1.3 10^3/uL (1.0-4.0); LYMPHOCYTES % (AUTO) 11 % (12-44); MEAN CORPUSCULAR HEMOGLOBIN 30 pg (25-34); MEAN CORPUSCULAR HGB CONC 32 g/dL (32-36); MEAN CORPUSCULAR VOLUME 93 fL (80-99); MEAN PLATELET VOLUME 10.1 fL (9.0-12.2); MONOCYTES # (AUTO) 0.6 10^3/uL (0.0-1.0); MONOCYTES % (AUTO) 5 % (0-12); NEUTROPHILS # (AUTO) 9.7 10^3/uL (1.8-7.8); NEUTROPHILS % (AUTO) 81 % (42-75); PLATELET COUNT 388 10^3/uL (130-400); WHITE BLOOD COUNT 11.9 10^3/uL (4.3-11.0)
[2020-11-15] MEDS ORDERED: amLODIPine 5 MG (NORVASC) TAB PO ONE (15:30)
[2020-11-15 15:34] LABS: BILIRUBIN,URINE NEGATIVE (NEGATIVE); CLARITY,URINE CLEAR; COLOR,URINE YELLOW; GLUCOSE, URINE (UA) NEGATIVE (NEGATIVE); KETONES,URINE NEGATIVE (NEGATIVE); LEUKOCYTE ESTERASE ,URINE NEGATIVE (NEGATIVE); NITRITE,URINE NEGATIVE (NEGATIVE); PH,URINE 5.5 (5-9); PROTEIN,URINE 2+ (NEGATIVE)
[2020-11-15 15:35] LABS: PROTHROMBIN TIME PATIENT 13.8 SEC (12.2-14.7)
[2020-11-15 15:36] LABS: ALBUMIN 4.4 GM/DL (3.2-4.5)
--- NOTE | 2020-11-15 15:36 | ED Chest Pain ---
General Chief Complaint: Chest Pain Stated Complaint: WEAK,TIRED, CP Nursing Triage Note: Patient ambulatory to ER with c/o chest pain to mid chest that radiates into her neck. This has been ongoing for weeks but patient states the pain was worse last night. Patient also c/o shortness of breath and has difficulty walking because of the SOB. patient states she has to sit up with pillows to sleep. Nursing Sepsis Screen: No Definite Risk Source: patient Exam Limitations: no limitations History of Present Illness Date Seen by Provider: November 15, 2020 Time Seen by Provider: 15:19 Initial Comments Here with report of mid chest pain that radiates to her neck. Has has been going on for a while but worse over the last 24 hours. Also has increasing shortness of breath and orthopnea. Does have history of heart failure. States that she urinated quite a bit last night and went to bed at 166 pounds and woke up at 160. Does take furosemide. Notes that her blood pressure has been quite labile between 90s systolic and 180s systolic. It was 90s systolic earlier and now it is in the 180s. She was worried that one of the medicines (amlodipine) was causing her feet to swell. She is also not been doing albuterol inhalers/nebulizer due to the same concerned about feet swelling but has had to recently restart that. Timing/Duration: 6-7 days Severity/Quality: mild, moderate, pressure Location: central Radiation: neck Activities at Onset: activity Prior CP/Workup: echocardiography, stress test ASA po BUNDLES HANGER: Yes NTG SL BUNDLES HANGER: No Associated Symptoms: No abdominal pain, No back pain; edema, fatigue; No fever/chills, No nausea/vomiting; shortness of breath, weakness Allergies and Home Medications Allergies Coded Allergies: atorvastatin calcium (Unverified Allergy, Unknown, 07/27/16) cefdinir (Verified Allergy, Unknown, 09/01/17) codeine (Unverified Allergy, Unknown, 07/27/16) doxycycline (Verified Allergy, Unknown, 09/01/17) escitalopram oxalate (Unverified Allergy, Unknown, 07/27/16) niacin (Unverified Allergy, Unknown, 07/27/16) oxycodone (Verified Allergy, Unknown, 09/01/17) simvastatin (Unverified Allergy, Unknown, 07/27/16) tramadol (Unverified Allergy, Unknown, 07/27/16) acetaminophen (Verified Adverse Reaction, Mild, 10/17/19) TYLENOL WITH CODEINE MAKE PT ITCH. Home Medications Acetaminophen 500 Mg Tablet, 500-1,000 MG PO Q6H PRN for PAIN-MODERATE (5-7), (Reported) Albuterol Sulfate 2.5 Mg/0.5 Ml Vial.neb, 2.5 MG INH Q6H PRN for SHORTNESS OF BREATH, (Reported) Amlodipine Besylate 10 Mg Tablet, 10 MG PO DAILY Prescribed by: DALI RYAN on 10/09/20 1021 Aspirin 81 Mg Tablet.dr, 81 MG PO DAILY, (Reported) Bisoprolol Fumarate 10 Mg Tablet, 10 MG PO DAILY Prescribed by: DALI RYAN on 10/09/20 1021 Clonidine HCl 0.1 Mg Tablet, 0.1 MG PO BID Prescribed by: DALI RYAN on 10/09/20 1021 Clopidogrel Bisulfate 75 Mg Tablet, 75 MG PO DAILY, (Reported) Doxazosin Mesylate 8 Mg Tablet, 8 MG PO BID, (Reported) Furosemide 20 Mg Tablet, 20 MG PO DAILY Prescribed by: DALI RYAN on 10/09/20 1021 Gabapentin 300 Mg Capsule, 300 MG PO 0800,1500,2200, (Reported) Glimepiride 4 Mg Tablet, 4 MG PO BID, (Reported) Isosorbide Mononitrate 120 Mg Tab.er.24h, 120 MG PO DAILY, (Reported) Losartan Potassium 100 Mg Tablet, 100 MG PO DAILY, (Reported) Pantoprazole Sodium 40 Mg Tablet.dr, 40 MG PO DAILY, (Reported) Patient Home Medication List Home Medication List Reviewed: Yes Review of Systems Review of Systems Constitutional: see HPI; No chills, No fever EENTM: No Nose Congestion, No Nose Pain, No Throat Pain Respiratory: Denies Cough; SOA With Exertion, SOA at Rest Cardiovascular: Chest Pain, Edema Gastrointestinal: Nausea; Denies Vomiting Genitourinary: No Symptoms Reported Musculoskeletal: no symptoms reported Skin: no symptoms reported All Other Systems Reviewed Negative Unless Noted: Yes Past Lybfxej-Ukwzcp-Cdfkbn Hx Past Med/Social Hx: Reviewed Nursing Past Med/Soc Hx Patient Social History Alcohol Use: Denies Use Smoking Status: Former Smoker Type Used: Cigarettes Former Smoker, Quit: Aug 15, 2012 2nd Hand Smoke Exposure: No Recent Infectious Disease Expo: No Recent Hopitalizations: No Immunizations Up To Date Tetanus Booster (TDap): Less than 5yrs PED Vaccines UTD: No Date of Pneumonia Vaccine: May 04, 2016 Date of Influenza Vaccine: Apr 28, 2020 Seasonal Allergies Seasonal Allergies: No Past Medical History Surgeries: Yes Bladder Surgery, Gallbladder, Hysterectomy, Orthopedic, Tonsillectomy Respiratory: Yes Sleep Apnea, COPD Currently Using CPAP: Yes Cardiac: Yes Coronary Artery Disease, High Cholesterol, Hypertension Neurological: No Reproductive Disorders: No Female Reproductive Disorders: Denies Sexually Transmitted Disease: No HIV/AIDS: No Genitourinary: Yes (INCONT) Gastrointestinal: Yes Chronic Diarrhea, Polyps Musculoskeletal: Yes (, CERVICAL STENOSIS) Fibromyalgia Endocrine: Yes (history of thyroid nodules) Adrenal Disease, Diabetes, Non-Insulin dep Loss of Vision: Bilateral Hearing Impairment: Hard of Hearing Psychosocial: No Integumentary: No Blood Disorders: Yes (ANEMIA, POSSIBLE EARLY LEUKEMIA) Adverse Reaction/Blood Tranf: No Family Medical History Reviewed Nursing Family Hx Heart Disease, Cancer, CAD Over 55 Years Old, Stroke Non-contributory Physical Exam Vital Signs Vital Signs - First Documented 11/15/20 15:02 Temp 36.8 Pulse 61 Resp 18 B/P (MAP) 188/79 (115) Pulse Ox 97 O2 Delivery Room Air Capillary Refill : Less Than 3 Seconds Height, Weight, BMI Height: 5'2.00" Weight: 166lbs. 6.0oz. 75.573564xi; 29.00 BMI Method:Stated General Appearance: No Apparent Distress, WD/WN HEENT: PERRL/EOMI, Pharynx Normal Neck: Non Tender, Supple Respiratory: Lungs Clear, Normal Breath Sounds Cardiovascular: Regular Rate, Rhythm, No Murmur Gastrointestinal: Non Tender, Soft Extremity: Normal Range of Motion, Non Tender Neurologic/Psychiatric: Alert, Oriented x3 Skin: Normal Color, Warm/Dry Progress/Results/Core Measures Results/Orders Lab Results Laboratory Tests Test 11/15/20 15:15 11/15/20 15:28 11/15/20 17:23 Range/Units White Blood Count 11.9 H 4.3-11.0 10^3/uL Red Blood Count 4.25 3.80-5.11 10^6/uL Hemoglobin 12.7 11.5-16.0 g/dL Hematocrit 40 35-52 % Mean Corpuscular Volume 93 80-99 fL Mean Corpuscular Hemoglobin 30 25-34 pg Mean Corpuscular Hemoglobin Concent 32 32-36 g/dL Red Cell Distribution Width 15.7 H 10.0-14.5 % Platelet Count 388 130-400 10^3/uL Mean Platelet Volume 10.1 9.0-12.2 fL Immature Granulocyte % (Auto) 1 % Neutrophils (%) (Auto) 81 H 42-75 % Lymphocytes (%) (Auto) 11 L 12-44 % Monocytes (%) (Auto) 5 0-12 % Eosinophils (%) (Auto) 2 0-10 % Basophils (%) (Auto) 1 0-10 % Neutrophils # (Auto) 9.7 H 1.8-7.8 10^3/uL Lymphocytes # (Auto) 1.3 1.0-4.0 10^3/uL Monocytes # (Auto) 0.6 0.0-1.0 10^3/uL Eosinophils # (Auto) 0.2 0.0-0.3 10^3/uL Basophils # (Auto) 0.1 0.0-0.1 10^3/uL Immature Granulocyte # (Auto) 0.1 0.0-0.1 10^3/uL Prothrombin Time 13.8 12.2-14.7 SEC INR Comment 1.0 0.8-1.4 Activated Partial Thromboplast Time 30 24-35 SEC D-Dimer 0.89 H 0.00-0.49 UG/ML Sodium Level 141 135-145 MMOL/L Potassium Level 4.0 3.6-5.0 MMOL/L Chloride Level 104 98-107 MMOL/L Carbon Dioxide Level 25 21-32 MMOL/L Anion Gap 12 5-14 MMOL/L Blood Urea Nitrogen 41 H 7-18 MG/DL Creatinine 2.15 H 0.60-1.30 MG/DL Estimat Glomerular Filtration Rate 22 BUN/Creatinine Ratio 19 Glucose Level 154 H 70-105 MG/DL Calcium Level 9.8 8.5-10.1 MG/DL Corrected Calcium 9.5 8.5-10.1 MG/DL Magnesium Level 1.7 1.6-2.4 MG/DL Total Bilirubin 0.6 0.1-1.0 MG/DL Aspartate Amino Transf (AST/SGOT) 18 5-34 U/L Alanine Aminotransferase (ALT/SGPT) 14 0-55 U/L Alkaline Phosphatase 80 40-136 U/L Myoglobin 121.4 H 116.8 H 10.0-92.0 NG/ML Troponin I < 0.028 < 0.028 <0.028 NG/ML B-Type Natriuretic Peptide 202.9 H <100.0 PG/ML Total Protein 7.2 6.4-8.2 GM/DL Albumin 4.4 3.2-4.5 GM/DL Urine Color YELLOW Urine Clarity CLEAR Urine pH 5.5 5-9 Urine Specific [place] 1.025 H 1.016-1.022 Urine Protein 2+ H NEGATIVE Urine Glucose (UA) NEGATIVE NEGATIVE Urine Ketones NEGATIVE NEGATIVE Urine Nitrite NEGATIVE NEGATIVE Urine Bilirubin NEGATIVE NEGATIVE Urine Urobilinogen 0.2 < = 1.0 MG/DL Urine Leukocyte Esterase NEGATIVE NEGATIVE Urine RBC (Auto) NEGATIVE NEGATIVE Urine RBC 0-2 /HPF Urine WBC 0-2 /HPF Urine Squamous Epithelial Cells 2-5 /HPF Urine Crystals PRESENT H /LPF Urine Amorphous Sediment RARE FUNMI URATES H /LPF Urine Bacteria TRACE /HPF Urine Casts NONE /LPF Urine Mucus NEGATIVE /LPF Urine Culture Indicated NO My Orders Orders - ANDREA MEDINA MD Cbc With Automated Diff (11/15/20 15:22) Magnesium (11/15/20 15:22) Chest 1 View, Ap/Pa Only (11/15/20 15:22) Ekg Tracing (11/15/20 15:22) Comprehensive Metabolic Panel (11/15/20 15:22) Myoglobin Serum (11/15/20 15:22) Protime With Inr (11/15/20 15:22) Partial Thromboplastin Time (11/15/20 15:22) O2 (11/15/20 15:22) Monitor-Rhythm Ecg Trace Only (11/15/20 15:22) Lipid Panel (11/16/20 06:00) Ed Iv/Invasive Line Start (11/15/20 15:22) BNP (11/15/20 15:22) Fibrin Degradation Products (11/15/20 15:22) Troponin I (11/15/20 15:22) Amlodipine Tablet (Norvasc Tablet) (11/15/20 15:30) Ua Culture If Indicated (11/15/20 15:24) Troponin I (11/15/20 17:05) Myoglobin Serum (11/15/20 17:05) Medications Given in ED Current Medications Medications Dose Ordered Sig/Syl Route Start Time Stop Time Status Last Admin Dose Admin Amlodipine Besylate 5 mg ONCE ONCE PO 11/15/20 15:30 11/15/20 15:31 DC 11/15/20 15:29 5 MG Vital Signs/I&O 11/15/20 11/15/20 15:02 15:23 Temp 36.8 Pulse 61 Resp 18 B/P (MAP) 188/79 (115) Pulse Ox 97 O2 Delivery Room Air Room Air Blood Pressure Mean: 115 Progress Progress Note : Progress Note Seen and evaluated. IV, labs, EKG and chest x-ray ordered. ASA not given as she is taken her own at home today. Amlodipine 5 mg p.o. given for hypertension. Monitor patient. 1639: Overall doing about the same. We will repeat troponin and myoglobin at 1715 and reevaluate for changes as well as monitor for ongoing or changing chest pain. This was discussed with patient and family who agreed. Monitor patient. 1806: Repeat troponin negative and repeat myoglobin has trended down. Patient is still experiencing intermittent chest pain. I did discuss the case with Dr. Chavez and she accepts patient for admission, observation status. I did discuss the case with Dr. Rebolledo at 1812. He agrees to see patient in consult. Patient and family agree with plan. Initial ECG Impression Date: November 15, 2020 Initial ECG Impression Time: 15:05 Initial ECG Rate: 60 Initial ECG Rhythm: Normal Sinus Comment Sinus rhythm with left ventricular hypertrophy. Leftward axis. No evidence of ST elevation [place]. Similar to previous of 10/10/2020. Interpreted by me. Diagnostic Imaging Diagonstic Imaging: Xray Plain Films/CT/US/NM/MRI: chest Comments [facility] [place], [place] NAME: FREDO NEWBERRY MED REC#: [id number] PT STATUS: REG ER : 1945 PHYSICIAN: ANDREA MEDINA MD ADMIT DATE: 11/15/20/ER Signed Date of Exam:11/15/20 CHEST 1 VIEW, AP/PA ONLY INDICATION: Chest pain. Time of exam 3:45 p.m. Correlation is made with prior chest 10/10/2020. FINDINGS: The heart size is normal. The pulmonary vascularity is unremarkable. The lungs are clear. No infiltrate, effusion or pneumothorax is detected. Postoperative changes in the lower cervical spine are noted. IMPRESSION: No acute cardiopulmonary process is detected. Dictated by: Dictated on workstation # [id number] Dict: 11/15/20 1547 Trans: 11/15/20 1551 [facility] [id number] Interpreted by: CINDY MEMBRENO MD Electronically signed by: CINDY MEMBRENO MD 11/15/20 1551 Departure Communication (Admissions) Time/Spoke to Admitting Phy: 18:06 Impression Primary Impression: Chest pain Qualified Codes: R07.9 - Chest pain, unspecified Disposition: ADMITTED INPATIENT Condition: Stable Admissions Decision to Admit Reason: Admit from ER (General) Decision to Admit/Date: November 15, 2020 Time/Decision to Admit Time: 18:06 Departure-Patient Inst. Referrals: RAJWINDER CARVAJAL MD (PCP/Family) Primary Care Physician ANDREA MEDINA MD November 15, 2020 15:36
[2020-11-15 15:38] LABS: CALCIUM 9.8 MG/DL (8.5-10.1)
[2020-11-15 15:39] LABS: TOTAL PROTEIN 7.2 GM/DL (6.4-8.2)
[2020-11-15 15:41] LABS: BILIRUBIN,TOTAL 0.6 MG/DL (0.1-1.0)
[2020-11-15 15:43] LABS: AMORPHOUS SEDIMENT,UR RARE AMOR URATES /LPF; BACTERIA,URINE TRACE /HPF; RBC,URINE 0-2 /HPF; WBC,URINE 0-2 /HPF
[2020-11-15 15:43] LABS: CREATININE SERUM 2.15 MG/DL (0.60-1.30)
[2020-11-15 15:46] LABS: MAGNESIUM 1.7 MG/DL (1.6-2.4)
--- NOTE | 2020-11-15 15:51 | Diagnostic Imaging Report ---
INDICATION: Chest pain. Time of exam 3:45 p.m. Correlation is made with prior chest 10/10/2020. FINDINGS: The heart size is normal. The pulmonary vascularity is unremarkable. The lungs are clear. No infiltrate, effusion or pneumothorax is detected. Postoperative changes in the lower cervical spine are noted. IMPRESSION: No acute cardiopulmonary process is detected. Dictated by: Dictated on workstation # [id number]
[2020-11-15] MEDS ORDERED: ONDANSETRON 4 MG/2 ML (SDV) Z0FRAN IVP PRN (19:15)
[2020-11-15] MEDS ORDERED: NITROGLYCERIN 0.4 MG SL TABS BTL 25'S SL PRN (19:15)
[2020-11-15] MEDS ORDERED: CATHETER FLUSH 10 ML SYR IV PRN (19:15)
[2020-11-15] MEDS ORDERED: morphine INJ 4 MG/ML 1 ML (VIAL/SYRINGE) IV PRN (19:15)
[2020-11-15 19:29] VITALS: BP 187/70
[2020-11-15] MEDS: CATHETER FLUSH 10 ML SYR IV SCH (22:31)
[2020-11-16 00:37] VITALS: BP 184/73
[2020-11-16 04:55] VITALS: BP 186/90
[2020-11-16] MEDS: CATHETER FLUSH 10 ML SYR IV SCH ×3 (05:00→20:41)
[2020-11-16 05:39] LABS: BASOPHILS # (AUTO) 0.1 10^3/uL (0.0-0.1); BASOPHILS % (AUTO) 1 % (0-10); EOSINOPHILS # (AUTO) 0.3 10^3/uL (0.0-0.3); EOSINOPHILS % (AUTO) 3 % (0-10); HEMATOCRIT 41 % (35-52); HEMOGLOBIN 13.1 g/dL (11.5-16.0); LYMPHOCYTES # (AUTO) 1.5 10^3/uL (1.0-4.0); LYMPHOCYTES % (AUTO) 13 % (12-44); MEAN CORPUSCULAR HEMOGLOBIN 30 pg (25-34); MEAN CORPUSCULAR HGB CONC 32 g/dL (32-36); MEAN CORPUSCULAR VOLUME 92 fL (80-99); MEAN PLATELET VOLUME 10.4 fL (9.0-12.2); MONOCYTES # (AUTO) 0.6 10^3/uL (0.0-1.0); MONOCYTES % (AUTO) 5 % (0-12); NEUTROPHILS # (AUTO) 8.7 10^3/uL (1.8-7.8); NEUTROPHILS % (AUTO) 78 % (42-75); PLATELET COUNT 400 10^3/uL (130-400); WHITE BLOOD COUNT 11.2 10^3/uL (4.3-11.0)
[2020-11-16 06:20] LABS: CHLORIDE 107 MMOL/L (98-107); POTASSIUM 3.6 MMOL/L (3.6-5.0); SODIUM 143 MMOL/L (135-145)
[2020-11-16 06:21] LABS: CALCIUM 10.4 MG/DL (8.5-10.1)
[2020-11-16 06:22] LABS: GLUCOSE 132 MG/DL (70-105); TRIGLYCERIDES 253 MG/DL (<150); VLDL CHOLESTEROL 51 MG/DL (5-40)
[2020-11-16 06:23] LABS: CARBON DIOXIDE 26 MMOL/L (21-32)
[2020-11-16 06:26] LABS: CREATININE SERUM 1.88 MG/DL (0.60-1.30); GFR ESTIMATED 26
[2020-11-16 06:27] LABS: BUN/CREATININE RATIO 21; CHOLESTEROL 179 MG/DL (< 200)
[2020-11-16 06:28] LABS: HDL CHOLESTEROL 25 MG/DL (40-60)
[2020-11-16 08:21] VITALS: BP 195/70
[2020-11-16] MEDS ORDERED: amLODIPine 10 MG (NORVASC) TAB PO NR (09:45)
[2020-11-16] MEDS ORDERED: GLIMEPIRIDE 4 MG (AMARYL) TAB PO NR (09:45)
[2020-11-16] MEDS ORDERED: CLOPIDOGREL 75 MG (PLAVIX) TABLET PO NR (09:45)
[2020-11-16] MEDS: ASPIRIN E.C. 81 MG (ECOTRIN) TAB PO SCH (10:05)
--- NOTE | 2020-11-16 11:05 | History & Physical-Hospitalist ---
History of Present Illness HPI/Chief Complaint Pt is a 75yoCF with a PMH of CAD, CANDICE, dCHF, NIDDMII, CKD stage4, HTN who presented to the ER due to chest discomfort though to me she reports she is here for multiple generalized symptoms. She states since she was in the hospital a month ago she has had worsening dyspnea and fatigues easily. She states in August she did not have any of these issues though her family member at bedside shakes his head no that that is not the case. She was admitted a month ago with CHF exacerbation and has followed up with Dr Fernandes since then. She has noticed her BP has been quite erratic and tried to take herself off of amlodipine 4 days ago because she thought that was the problem. She is also taking gabapentin 300 TID for her peripheral neuropathy. Source: patient Date Seen 11/16/20 Time Seen by a Provider: 10:59 Attending Physician Edwin Enriquez MD PCP Tone Perez MD Referring Physician Date of Admission November 15, 2020 at 18:08 Home Medications & Allergies Home Medications Reviewed patient Home Medication Reconciliation performed by pharmacy medication reconciliations electromechanical assembly technician and/or nursing. Patients Allergies have been reviewed. Allergies Allergies Coded Allergies atorvastatin calcium (Unverified Allergy, Unknown, 07/27/16) cefdinir (Verified Allergy, Unknown, 09/01/17) codeine (Unverified Allergy, Unknown, 07/27/16) doxycycline (Verified Allergy, Unknown, 09/01/17) escitalopram oxalate (Unverified Allergy, Unknown, 07/27/16) niacin (Unverified Allergy, Unknown, 07/27/16) oxycodone (Verified Allergy, Unknown, 09/01/17) simvastatin (Unverified Allergy, Unknown, 07/27/16) tramadol (Unverified Allergy, Unknown, 07/27/16) acetaminophen (Verified Adverse Reaction, Mild, 10/17/19) TYLENOL WITH CODEINE MAKE PT ITCH. Past Medical/Social/Family Hx Patient Social History Marrital Status: Employed/Student: retired Tobacco Use?: No Smoking Status: Former Smoker Use of E-Cig and/or Vaping dev: No Substance use?: No Alcohol Use?: No Pt stated abuse/neglect: No Immunizations Up To Date Influenza Vaccine Up-to-Date: Yes; Up-to-Date First/Initial COVID19 Vaccinat: september 02 Second COVID19 Vaccination Willis: september 26 Tetanus Booster (TDap): More Than 5 Years Hepatitis A: No Hepatitis B: No TB Skin Test: None Date of Pneumonia Vaccine: May 04, 2016 Current Status status: No status: No Advance Directives: No Communicates: Verbally Primary Language: South African Preferred Spoken Language: South African Is interpretation needed?: No Sensory deficits: Hearing impairment Implanted or Applied Medical D: CPAP, Stents Past Medical History HTN Renal artery stenosis CAD T2DM CKD Stage 4 HLD Myeloproliferative disorder HFpEF Family Medical History Family Hx: Non-contributory Review of Systems Constitutional: No chills, No diaphoresis, No fever; malaise EENTM: no symptoms reported Respiratory: dyspnea on exertion, short of breath Cardiovascular: chest pain, edema, Hx of Intervention; No palpitations, No syncope; vascular heart diseas Gastrointestinal: No abdominal pain, No constipation, No diarrhea, No loss of appetite, No nausea, No vomiting Genitourinary: No decreased output, No dysuria; incontinence Musculoskeletal: back pain Skin: no symptoms reported Psychiatric/Neurological: No Symptoms Reported Physical Exam Physical Exam Vital Signs Vital Signs - First Documented 11/15/20 15:02 Temp 36.8 Pulse 61 Resp 18 B/P (MAP) 188/79 (115) Pulse Ox 97 O2 Delivery Room Air Capillary Refill : Less Than 3 Seconds Height, Weight, BMI Height: 5'2.00" Weight: 166lbs. 6.0oz. 75.117773ab; 30.15 BMI Method:Stated General Appearance: No Apparent Distress, Chronically ill HEENT: PERRL/EOMI, Moist Mucous Membranes; No Scleral Icterus (L), No Scleral Icterus (R) Neck: Normal Inspection, Supple Respiratory: Lungs Clear, No Accessory Muscle Use, No Respiratory Distress Cardiovascular: Regular Rate, Rhythm, No Murmur Gastrointestinal: Normal Bowel Sounds, Non Tender, Soft Extremity: No Calf Tenderness, No Pedal Edema Neurologic/Psychiatric: Alert, Oriented x3, Normal Mood/Affect Skin: Normal Color, Warm/Dry Results Results/Procedures Labs Laboratory Tests 11/15/20 15:15 11/16/20 05:15 11/17/20 05:08 Patient resulted labs reviewed. Imaging: Reviewed Imaging Report Imaging [facility] [place], [place] NAME: FREDO [facility] REC#: [id number] PT STATUS: REG ER : 1945 PHYSICIAN: ANDREA MEDINA MD ADMIT DATE: 11/15/20/ER Signed Date of Exam:11/15/20 CHEST 1 VIEW, AP/PA ONLY INDICATION: Chest pain. Time of exam 3:45 p.m. Correlation is made with prior chest 10/10/2020. FINDINGS: The heart size is normal. The pulmonary vascularity is unremarkable. The lungs are clear. No infiltrate, effusion or pneumothorax is detected. Postoperative changes in the lower cervical spine are noted. IMPRESSION: No acute cardiopulmonary process is detected. Dictated by: Dictated on workstation # [id number] Dict: 11/15/20 1547 Trans: 11/15/20 1551 [facility] [id number] Interpreted by: CINDY MEMBRENO MD Electronically signed by: CINDY MEMBRENO MD 11/15/20 1550 Assessment/Plan Admission Diagnosis Chest pain Admission Status: Observation Assessment and Plan Chest pain CAD dCHF HTN with labile BP CANDICE CKD Stage 4 Admitted overnight for observation due to chest discomfort Troponin negative x2 Cardiology consulted, appreciate recs Resume home BP meds cautiously due to labile BP Offered another night of observation in the hospital but she states she doesn't "want to stay if you aren't going to do anything" Reviewed renal imaging from last month with her and Echo from March as well Peripheral neuropathy Chronic back pain Discussed renally adjusting gabapentin dose as may be contributing to fatigue and excess sleepiness, patient declines this option NIDDMI Continue home glimepiride Diagnosis/Problems Diagnosis/Problems (1) Chest pain Status: Acute Qualifiers: Chest pain type: unspecified Qualified Codes: R07.9 - Chest pain, unspecified (2) CKD (chronic kidney disease), stage IV Status: Acute (3) Myeloproliferative disorder Status: Chronic (4) (HFpEF) heart failure with preserved ejection fraction Status: Acute (5) T2DM (type 2 diabetes mellitus) Status: Chronic (6) Renal artery stenosis Status: Chronic (7) CAD (coronary artery disease) Status: Chronic Clinical Quality Measures AMI/AHF: ASA po Prior to arrival: Yes EDWIN ENRIQUEZ MD November 16, 2020 11:05
[2020-11-16 12:10] VITALS: BP 194/73
[2020-11-16] MEDS: GABAPENTIN 300 MG (NEURONTIN) CAP PO SCH ×2 (13:53→20:40)
[2020-11-16] MEDS ORDERED: ISOSORBIDE MONONITRATE 60 MG (IMDUR) TAB PO NR (14:45)
[2020-11-16 16:40] VITALS: BP 137/70
[2020-11-16 20:27] VITALS: BP 132/64
--- NOTE | 2020-11-16 22:17 | Consultation-Cardiology ---
HPI-Cardiology Cardiology Consultation: Date of Consultation 11/16/20 Date of Admission Attending Physician Jaki Enriquez MD Admitting Physician Tone Perez MD Consulting Physician Mervin HILL MD HPI: Time Seen by a Provider: 13:00 Chief Complaint: Chest pain This is a 75-year-old lady with history of coronary artery disease, renal artery stenosis, previous history of congestive heart failure, diabetes, severe chronic kidney disease and high blood pressure. She presents to the ER with complaints of chest pain. She is also complaining of worsening shortness of breath. She follows with Dr. Peck. When I saw the patient she did not have any further chest pain. Mild to moderate intensity with no radiation. She denies active smoking. Review of Systems-Cardiology Review of Systems Constitutional: As described under HPI; No As described under HPI, No no symptoms reported, No chills, No fever, No lightheadedness Eyes: No As described under HPI, No no symptoms reported, No blindness, No blurred vision, No contact lenses, No drainage, No decreased acuity, No foreign body sensation, No pain, No vision change Ears/Nose/Throat: No As described under HPI, No no symptoms reported, No chronic hearing loss, No ear discharge, No ear pain, No nasal drainage, No ulcerations Respiratory: No no symptoms reported; As described under HPI; No As described under HPI, No cough, No orthopnea; shortness of breath; No SOB with excertion Cardiovascular: No no symptoms reported; As described under HPI; No As described under HPI; chest pain; No edema, No irregular heart rate, No lightheadedness, No palpitations Gastrointestinal: No no symptoms reported, No As described under HPI, No abdomen distended, No abdominal pain, No blood streaked bowels, No constipation, No diarrhea, No nausea, No vomiting, No stool coloration changes Genitourinary: No As described under HPI, No burning, No dysuria, No discharge, No frequency, No flank pain, No hematuria, No urgency : Yes : No Skin: No rash, No skin related problems, No ulcerations Psychiatric/Neurological: No anxiety, No depression, No seizure, No focal weakness, No syncope Hematologic: No bleeding abnormalities All Other Systems Reviewed Negative Unless Noted: Yes [id number] Hx Patient Social History Marrital Status: Employed/Student: retired Smoking Status: Former Smoker 2nd Hand Smoke Exposure: No Have you traveled recently?: No Alcohol Use?: No Pt feels they are or have been: No Immunizations Up To Date Tetanus Booster (TDap): Less than 5yrs Date of Pneumonia Vaccine: May 04, 2016 Date of Influenza Vaccine: Apr 28, 2020 Past Medical History PMH As described under Assessment. Family Medical History Family Medical History: Does not eport fam h/o early CAD Allergies and Home Medications Allergies Coded Allergies: atorvastatin calcium (Unverified Allergy, Unknown, 07/27/16) cefdinir (Verified Allergy, Unknown, 09/01/17) codeine (Unverified Allergy, Unknown, 07/27/16) doxycycline (Verified Allergy, Unknown, 09/01/17) escitalopram oxalate (Unverified Allergy, Unknown, 07/27/16) niacin (Unverified Allergy, Unknown, 07/27/16) oxycodone (Verified Allergy, Unknown, 09/01/17) simvastatin (Unverified Allergy, Unknown, 07/27/16) tramadol (Unverified Allergy, Unknown, 07/27/16) acetaminophen (Verified Adverse Reaction, Mild, 10/17/19) TYLENOL WITH CODEINE MAKE PT ITCH. Home Medications Acetaminophen 500 Mg Tablet, 500-1,000 MG PO Q6H PRN for PAIN-MODERATE (5-7), (Reported) Last Action: Last Taken Edited Albuterol Sulfate 2.5 Mg/0.5 Ml Vial.neb, 2.5 MG INH Q6H PRN for SHORTNESS OF BREATH, (Reported) Amlodipine Besylate 10 Mg Tablet, 10 MG PO DAILY Prescribed by: DALI RYAN on 10/09/20 1021 Last Action: Last Taken Edited Aspirin 81 Mg Tablet.dr, 81 MG PO DAILY, (Reported) Last Action: Last Taken Edited Bisoprolol Fumarate 10 Mg Tablet, 10 MG PO DAILY Prescribed by: DALI RYAN on 10/09/20 102 Clonidine HCl 0.1 Mg Tablet, 0.1 MG PO BID Prescribed by: DALI RYAN on 10/09/20 1021 Clopidogrel Bisulfate 75 Mg Tablet, 75 MG PO DAILY, (Reported) Last Action: Last Taken Edited Doxazosin Mesylate 8 Mg Tablet, 8 MG PO BID, (Reported) Last Action: Last Taken Edited Furosemide 20 Mg Tablet, 20 MG PO DAILY Prescribed by: DALI RYAN on 10/09/20 1021 Gabapentin 300 Mg Capsule, 300 MG PO 0800,1500,2200, (Reported) Last Action: Last Taken Edited Glimepiride 4 Mg Tablet, 4 MG PO BID, (Reported) Last Action: Last Taken Edited Isosorbide Mononitrate 120 Mg Tab.er.24h, 120 MG PO DAILY, (Reported) Last Action: Last Taken Edited Losartan Potassium 100 Mg Tablet, 100 MG PO DAILY, (Reported) Last Action: Last Taken Edited Pantoprazole Sodium 40 Mg Tablet.dr, 40 MG PO DAILY, (Reported) Last Action: Last Taken Edited Patient Home Medication List Home Medication List Reviewed: Yes Physical Exam-Cardiology Physical Exam Vital Signs/I&O 11/17/20 11/17/20 11/17/20 11/17/20 07:00 07:55 08:00 12:09 Temp 36.7 36.7 Pulse 48 63 59 Resp 16 18 B/P (MAP) 173/73 (106) 155/72 (99) Pulse Ox 92 92 94 O2 Delivery Room Air Room Air Room Air 11/17/20 11/17/20 12:36 16:34 Temp 36.7 Pulse 57 58 Resp 18 B/P (MAP) 117/66 (83) Pulse Ox 95 O2 Delivery Room Air 11/17/20 00:00 Intake Total 846 ml Output Total 500 ml Balance 346 ml Capillary Refill : Less Than 3 Seconds Constitutional: appears stated age, AAO x 3; No apparent distress; well- developed, well-nourished HEENT: PERRL; No discharge; hearing is well preserved, oral hygience is good; No ulceration, No xanthelasmas are seen Neck: No carotid bruit; carotid pulses are 2 + bilaterally Respiratory: chest is bilaterally symmetric, lungs clear to auscultation Cardiovascular: regular rate-rhythm, S1 and S2 Gastrointestinal: soft, audible bowel sounds; No spleenomegaly Rectal: deferred Extremities: No clubbing, No cyanosis; no lower extremity edema bilateral; No significant edema Neurologic/Psychiatric: no motor/sensory deficits, alert, normal mood/affect, oriented x 3, power is 5/5 both on sides Skin: normal color; No rash, No ulcerations Data Review Labs Laboratory Tests 11/17/20 05:08: White Blood Count 12.1H, Red Blood Count 4.45, Hemoglobin 13.1, Hematocrit 41, Mean Corpuscular Volume 93, Mean Corpuscular Hemoglobin 29, Mean Corpuscular Hemoglobin Concent 32, Red Cell Distribution Width 15.5H, Platelet Count 385, Mean Platelet Volume 10.3, Sodium Level 138, Potassium Level 3.7, Chloride Level 106, Carbon Dioxide Level 24, Anion Gap 8, Blood Urea Nitrogen 44H, Creatinine 1.78H, Estimat Glomerular Filtration Rate 28, BUN/Creatinine Ratio 25, Glucose Level 123H, Calcium Level 9.5 ECG Impression ECG Initial ECG Rhythm: Normal Sinus Initial ECG Impression: Normal A/P-Cardiology Assessment/Admission Diagnosis Chest pain, History of CAD, History of renal artery stenosis, Possible acute on chronic diastolic congestive heart failure, Hypertension. Plan Chest pain, serial troponin negative. EKG does not show any acute ST-T wave abnormalities. Suggest echocardiogram and nuclear stress testing. History of CAD, continue aspirin and Plavix. History of renal artery stenosis, continue current blood pressure management. Possible acute on chronic diastolic congestive heart failure, echocardiogram. Hypertension. Well controlled. Thank you for your consultation. Please call me if you have any questions. Julienne Hill MD, FACP, FACC, FSCAI, FHRS, CCDS Interventional Cardiology Cardiac Electrophysiology Vascular Medicine and Endovascular Interventions Clinical Quality Measures AMI/AHF: ASA po Prior to arrival: Yes Mervin HILL MD November 16, 2020 22:17
[2020-11-17] VITALS: BP 164/64
[2020-11-17 04:59] VITALS: BP 152/69
[2020-11-17] MEDS: CATHETER FLUSH 10 ML SYR IV SCH ×3 (05:15→20:32)
[2020-11-17] MEDS: GLIMEPIRIDE 4 MG (AMARYL) TAB PO SCH (05:16)
[2020-11-17 05:38] LABS: HEMATOCRIT 41 % (35-52); HEMOGLOBIN 13.1 g/dL (11.5-16.0); MEAN CORPUSCULAR HEMOGLOBIN 29 pg (25-34); MEAN CORPUSCULAR HGB CONC 32 g/dL (32-36); MEAN CORPUSCULAR VOLUME 93 fL (80-99); MEAN PLATELET VOLUME 10.3 fL (9.0-12.2); PLATELET COUNT 385 10^3/uL (130-400); WHITE BLOOD COUNT 12.1 10^3/uL (4.3-11.0)
[2020-11-17 06:06] LABS: CALCIUM 9.5 MG/DL (8.5-10.1); CREATININE SERUM 1.78 MG/DL (0.60-1.30); POTASSIUM 3.7 MMOL/L (3.6-5.0)
[2020-11-17 08:00] VITALS: BP 173/73
[2020-11-17] MEDS: ISOSORBIDE MONONITRATE 60 MG (IMDUR) TAB PO SCH (09:31)
[2020-11-17] MEDS: amLODIPine 5 MG (NORVASC) TAB PO SCH (09:31)
[2020-11-17] MEDS: CLOPIDOGREL 75 MG (PLAVIX) TABLET PO SCH (09:32)
[2020-11-17] MEDS: GABAPENTIN 300 MG (NEURONTIN) CAP PO SCH ×3 (09:33→20:32)
[2020-11-17] MEDS: ASPIRIN E.C. 81 MG (ECOTRIN) TAB PO SCH (09:37)
[2020-11-17] MEDS ORDERED: ENOXAPARIN 40 MG/0.4 ML (LOVENOX) SYR SQ SCH (11:00)
--- NOTE | 2020-11-17 11:00 | Progress Note - Hospitalist ---
Subjective HPI/CC On Admission Date Seen by Provider: November 17, 2020 Time Seen by Provider: 10:56 Pt is a 75yoCF with a PMH of CAD, CANDICE, dCHF, NIDDMII, CKD stage4, HTN who presented to the ER due to chest discomfort though to me she reports she is here for multiple generalized symptoms. She states since she was in the hospital a month ago she has had worsening dyspnea and fatigues easily. She states in August she did not have any of these issues though her family member at bedside shakes his head no that that is not the case. She was admitted a month ago with CHF exacerbation and has followed up with Dr Fernandes since then. She has noticed her BP has been quite erratic and tried to take herself off of amlodipine 4 days ago because she thought that was the problem. She is also taking gabapentin 300 TID for her peripheral neuropathy. Subjective/Events-last exam Pt repors doing well today. No complaints. Was up and walking without any further symptoms. Plan is for stress test tomorrow. was asking about visitor policy and if he could come early since her stress is scheduled at 7am. Advised him to have his nurse ask house sup. Objective Exam Vital Signs Vital Signs Date Time Temp Pulse Resp B/P (MAP) Pulse Ox O2 Delivery O2 Flow Rate FiO2 11/17/20 08:00 36.7 63 16 173/73 (106) 92 Room Air Capillary Refill : Less Than 3 Seconds General Appearance: No Apparent Distress Respiratory: Lungs Clear, No Respiratory Distress Cardiovascular: Regular Rate, Rhythm, No Murmur Gastrointestinal: Normal Bowel Sounds, Soft Neurologic/Psychiatric: Alert, Oriented x3 Results/Procedures Lab Laboratory Tests 11/17/20 05:08 Patient resulted labs reviewed. Imaging: Reviewed Imaging Report Assessment/Plan Assessment and Plan Assess & Plan/Chief Complaint Chest pain CAD dCHF HTN with labile BP CANDICE with CKD Stage 4 Troponin negative x3 Cardiology consulted, appreciate recs BP better controlled with meds Reviewed renal imaging from last month with her and Echo from March as well Plan for stress test tomorrow Creatinine stable Peripheral neuropathy Chronic back pain Discussed renally adjusting gabapentin dose as may be contributing to fatigue and excess sleepiness, patient declines this option NIDDMI Continue home glimepiride Fasting BS 123 this AM DVT ppx: Lovenox Diagnosis/Problems Diagnosis/Problems (1) Chest pain Status: Acute Qualifiers: Chest pain type: unspecified Qualified Codes: R07.9 - Chest pain, unspecified (2) CKD (chronic kidney disease), stage IV Status: Acute (3) Myeloproliferative disorder Status: Chronic (4) (HFpEF) heart failure with preserved ejection fraction Status: Acute (5) T2DM (type 2 diabetes mellitus) Status: Chronic (6) Renal artery stenosis Status: Chronic (7) CAD (coronary artery disease) Status: Chronic Clinical Quality Measures AMI/AHF: ASA po Prior to arrival: Yes EDWIN ENGLAND MD November 17, 2020 11:00
[2020-11-17] MEDS: ENOXAPARIN 30 MG/0.3 ML (LOVENOX) SYR SC SCH (11:26)
[2020-11-17 12:09] VITALS: BP 155/72
[2020-11-17 16:34] VITALS: BP 117/66
--- NOTE | 2020-11-17 17:34 | Cardiology Progress Note ---
Cardiology SOAP Progress Note Subjective: No further chest pain. Objective: I&O/Vital Signs 11/17/20 11/17/20 11/17/20 11/17/20 07:00 07:55 08:00 12:09 Temp 36.7 36.7 Pulse 48 63 59 Resp 16 18 B/P (MAP) 173/73 (106) 155/72 (99) Pulse Ox 92 92 94 O2 Delivery Room Air Room Air Room Air 11/17/20 11/17/20 12:36 16:34 Temp 36.7 Pulse 57 58 Resp 18 B/P (MAP) 117/66 (83) Pulse Ox 95 O2 Delivery Room Air 11/17/20 00:00 Intake Total 846 ml Output Total 500 ml Balance 346 ml Weight (Pounds): 166 Weight (Ounces): 6.0 Weight (Calculated Kilograms): 75.495500 Constitutional: appears stated age, AAO x 3; No apparent distress; well- developed, well-nourished Respiratory: chest is bilaterally symmetric, lungs clear to auscultation Cardiovascular: regular rate-rhythm, S1 and S2 Gastrointestional: soft, audible bowel sounds; No spleenomegaly Extremities: No clubbing, No cyanosis; no lower extremity edema bilateral; No significant edema Neurologic/Psychiatric: no motor/sensory deficits, alert, normal mood/affect, oriented x 3, power is 5/5 both on sides Skin: normal color; No rash, No ulcerations Results/Procedures: Labs Laboratory Tests 11/17/20 05:08: White Blood Count 12.1H, Red Blood Count 4.45, Hemoglobin 13.1, Hematocrit 41, Mean Corpuscular Volume 93, Mean Corpuscular Hemoglobin 29, Mean Corpuscular Hemoglobin Concent 32, Red Cell Distribution Width 15.5H, Platelet Count 385, Mean Platelet Volume 10.3, Sodium Level 138, Potassium Level 3.7, Chloride Level 106, Carbon Dioxide Level 24, Anion Gap 8, Blood Urea Nitrogen 44H, Creatinine 1.78H, Estimat Glomerular Filtration Rate 28, BUN/Creatinine Ratio 25, Glucose Level 123H, Calcium Level 9.5 A/P: Assessment/Dx: Chest pain, History of CAD, History of renal artery stenosis, Possible acute on chronic diastolic congestive heart failure, Hypertension. Plan: Chest pain, serial troponin negative. EKG does not show any acute ST-T wave abnormalities. Nuclear stress testing to be done on 11/18/2020. Echocardiogram shows normal LV function with no significant valvular heart disease. History of CAD, continue aspirin and Plavix. History of renal artery stenosis, continue current blood pressure management. Possible acute on chronic diastolic congestive heart failure, echocardiogram. BNP minimally elevated. Hypertension. Well controlled. Thank you for your consultation. Please call me if you have any questions. Julienne Rebolledo MD, FACP, FACC, FSCAI, FHRS, CCDS Interventional Cardiology Cardiac Electrophysiology Vascular Medicine and Endovascular Interventions Clinical Quality Measures AMI/AHF: ASA po Prior to arrival: Yes Mervin REBOLLEDO MD November 17, 2020 17:34
[2020-11-17 20:23] VITALS: BP 151/77
[2020-11-18 00:09] VITALS: BP 185/79
[2020-11-18] MEDS ORDERED: NITROGLYCERIN 2% OINT 1 GM UNIT DOSE PACKET TOP ONE (00:15)
[2020-11-18 03:52] VITALS: BP 156/73
[2020-11-18 05:05] LABS: HEMATOCRIT 41 % (35-52); HEMOGLOBIN 13.1 g/dL (11.5-16.0); MEAN CORPUSCULAR HEMOGLOBIN 30 pg (25-34); MEAN CORPUSCULAR HGB CONC 32 g/dL (32-36); MEAN CORPUSCULAR VOLUME 93 fL (80-99); MEAN PLATELET VOLUME 10.5 fL (9.0-12.2); PLATELET COUNT 384 10^3/uL (130-400); WHITE BLOOD COUNT 11.9 10^3/uL (4.3-11.0)
[2020-11-18 05:25] LABS: CALCIUM 9.4 MG/DL (8.5-10.1); CREATININE SERUM 1.78 MG/DL (0.60-1.30)
[2020-11-18] MEDS: CATHETER FLUSH 10 ML SYR IV SCH (06:26)
[2020-11-18] MEDS: GLIMEPIRIDE 4 MG (AMARYL) TAB PO SCH (06:27)
[2020-11-18 07:45] VITALS: BP 127/60
[2020-11-18] MEDS ORDERED: REGADENOSON 0.4 MG/5 ML SYR (LEXISCAN) IV ONE ×2 (08:00→08:51)
--- NOTE | 2020-11-18 09:36 | Progress Note - Cardiology ---
Cardiology SOAP Progress Note Objective: I&O/Vital Signs 11/18/20 11/18/20 11/18/20 11/18/20 00:09 01:00 03:52 07:45 Temp 36.0 36.8 36.2 Pulse 66 54 61 69 Resp 18 20 20 B/P (MAP) 185/79 (114) 156/73 (100) 127/60 (82) Pulse Ox 94 95 93 O2 Delivery Room Air Room Air Room Air 11/18/20 08:00 Pulse Ox 93 O2 Delivery Room Air 11/18/20 00:00 Intake Total 1840 ml Output Total 200 ml Balance 1640 ml Weight (Pounds): 166 Weight (Ounces): 6.0 Weight (Calculated Kilograms): 75.291848 Constitutional: appears stated age, AAO x 3, well-developed, well-nourished Respiratory: chest is bilaterally symmetric, lungs clear to auscultation Cardiovascular: regular rate-rhythm, S1 and S2 Gastrointestional: soft, audible bowel sounds Extremities: cyanosis, no lower extremity edema bilateral Neurologic/Psychiatric: grossly intact (moves all extremities) Skin: No rash on exposed areas, No ulcerations on exposed areas Results/Procedures: Labs Laboratory Tests 11/18/20 04:35: White Blood Count 11.9H, Red Blood Count 4.42, Hemoglobin 13.1, Hematocrit 41, Mean Corpuscular Volume 93, Mean Corpuscular Hemoglobin 30, Mean Corpuscular Hemoglobin Concent 32, Red Cell Distribution Width 15.2H, Platelet Count 384, Mean Platelet Volume 10.5, Sodium Level 139, Potassium Level 4.0, Chloride Level 106, Carbon Dioxide Level 24, Anion Gap 9, Blood Urea Nitrogen 46H, Creatinine 1.78H, Estimat Glomerular Filtration Rate 28, BUN/Creatinine Ratio 26, Glucose Level 134H, Calcium Level 9.4 Laboratory Tests 11/17/20 05:08 11/18/20 04:35 A/P: Assessment: Chest pain of undetermined etiology - no evidence of ACS Hypertension, not well controlled CAD. - H/o cor stents (LAD and diag) with Dr Whitley. - Cardiac cath of October 16, 2019: Coronary artery disease consisting primarily of 70% in-stent restenosis of the left anterior descending (fractional flow reserve 0.8). To this, successful balloon angioplasty was carried out. The left anterior descending has approximately 50% bifurcation stenosis. The left circumflex artery has a 50% stenosis in its proximal to mid portion and 70% stenosis in its mid to distal portion and fractional flow reserve across a combination of these lesions is 0.89, indicating hemodynamic insignificance. Right coronary artery is dominant and has a patent stent in its distal portion. The right coronary artery has mild to moderate diffuse disease. Mildly elevated left ventricular end-diastolic pressure. - MPI of 04/02/20: no ischemia or infarction, LVEF 64% Echo of 04/04/20: LVEF 55-60%, grade 1 santoyo dysfunction, mild MR, PASP 30-35 mmHg H/o bilateral renal artery stents with Dr Whitley. 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 neuropsychology division chief Dr Ramirez Chronic back pain Bilateral leg discomfort, suggestive of claudication Chronic tobacco use, quit in 2011 COPD AUDIE, treated with CPAP Myeloproliferative disorder with leuckocytosis and thrombocytosis and chronic anemia, managed by [facility] [place], [place] Mild carotid art disease on carotid u/s of Mar 2020 No evidence of LE PVD per [facility] of Mar 2020 No evidence of AAA per scan of Mar 2020 Chronic back pain and cervical radiculopathy, followed and treated by her spine surgeon Bilat leg swelling due to venous insuff and, possibly, CCB therapy Multinodular thyroid goiter, followed by her oncologist HLD - refuses statin tx d/t reported intolerance S/p R cataract surgery in early Plan: Chest pain of undetermined etiology - no evidence of ACS - MPI later today Continue current medication regimen Further recs will be based on her hospital course We have reviewed Dr. Rebolledo's notes Clinical Quality Measures AMI/AHF: ASA po Prior to arrival: Yes JENNIFER COTTER November 18, 2020 09:36
[2020-11-18 09:40] VITALS: BP 202/74
[2020-11-18] MEDS: ASPIRIN E.C. 81 MG (ECOTRIN) TAB PO SCH (11:00)
[2020-11-18] MEDS: ISOSORBIDE MONONITRATE 60 MG (IMDUR) TAB PO SCH (11:01)
[2020-11-18] MEDS: GABAPENTIN 300 MG (NEURONTIN) CAP PO SCH ×2 (11:01→12:14)
[2020-11-18] MEDS: CLOPIDOGREL 75 MG (PLAVIX) TABLET PO SCH (11:01)
[2020-11-18] MEDS: amLODIPine 5 MG (NORVASC) TAB PO SCH (11:01)
[2020-11-18 11:39] VITALS: BP 158/78
[2020-11-18] MEDS: ENOXAPARIN 30 MG/0.3 ML (LOVENOX) SYR SC SCH (12:14)
[2020-11-18] MEDS ORDERED: BISO10TA PO (13:18)
[2020-11-18] MEDS ORDERED: AMLO-251 PO (13:18)
[2020-11-18] MEDS ORDERED: FURO20TA4 PO (13:18)
--- NOTE | 2020-11-18 14:39 | Discharge Summary ---
Discharge Summary Hospital Course Was the Problem List Reviewed?: Yes Problems/Dx: (1) Chest pain Status: Acute Qualifiers: Qualified Codes: R07.9 - Chest pain, unspecified (2) CKD (chronic kidney disease), stage IV Status: Acute (3) Myeloproliferative disorder Status: Chronic (4) (HFpEF) heart failure with preserved ejection fraction Status: Acute (5) T2DM (type 2 diabetes mellitus) Status: Chronic (6) Renal artery stenosis Status: Chronic (7) CAD (coronary artery disease) Status: Chronic Hospital Course Date of Admission: November 15, 2020 at 18:08 Admission Diagnosis : Chest pain Family Physician/Provider: Rajwinder Perez MD Date of Discharge: 11/18/20 Discharge Diagnosis: Chest pain Hospital Course: Mckenzie Huang is a 75-year-old female with past medical history of coronary artery disease, chronic kidney disease, who presented with chest pain. Cardiology was consulted and assisted with her care. Her initial work-up was negative. She underwent a cardiac stress test which was normal. She was discharged home in stable condition. She should follow-up with her primary care physician in about a week. She should follow-up with cardiology as scheduled. Labs and Pending Lab Test: Laboratory Tests 11/18/20 04:35: White Blood Count 11.9H, Red Blood Count 4.42, Hemoglobin 13.1, Hematocrit 41, Mean Corpuscular Volume 93, Mean Corpuscular Hemoglobin 30, Mean Corpuscular Hemoglobin Concent 32, Red Cell Distribution Width 15.2H, Platelet Count 384, Mean Platelet Volume 10.5, Sodium Level 139, Potassium Level 4.0, Chloride Level 106, Carbon Dioxide Level 24, Anion Gap 9, Blood Urea Nitrogen 46H, Creatinine 1.78H, Estimat Glomerular Filtration Rate 28, BUN/Creatinine Ratio 26, Glucose Level 134H, Calcium Level 9.4 Home Meds Active Reported Bisoprolol Fumarate 10 Mg Tablet 10 Mg PO DAILY Amlodipine Besylate 10 Mg Tablet 10 Mg PO DAILY Furosemide 20 Mg Tablet 20 Mg PO DAILY Tylenol Extra Strength (Acetaminophen) 500 Mg Tablet 500-1,000 Mg PO Q6H PRN Aspirin EC (Aspirin) 81 Mg Tablet.dr 81 Mg PO DAILY Neurontin (Gabapentin) 300 Mg Capsule 300 Mg PO 0800,1500,2200 Doxazosin Mesylate 8 Mg Tablet 8 Mg PO BID Clopidogrel (Clopidogrel Bisulfate) 75 Mg Tablet 75 Mg PO DAILY Glimepiride 4 Mg Tablet 4 Mg PO BID Pantoprazole Sodium 40 Mg Tablet.dr 40 Mg PO DAILY Losartan Potassium 100 Mg Tablet 100 Mg PO DAILY Isosorbide Mononitrate ER (Isosorbide Mononitrate) 120 Mg Tab.er.24h 120 Mg PO DAILY Assessment/Pt Instructions Take medications as prescribed. Follow up with PCP in about a week. Return with worsening chest pain or if you feel like you are getting worse. Discharge Planning: <30 minutes discharge planning Discharge Instructions Discharge Diet: Low Sodium Diet Activity as Tolerated: Yes Consultations Cardiology Discharge Physical Examination Vital Signs Vital Signs Date Time Temp Pulse Resp B/P (MAP) Pulse Ox O2 Delivery O2 Flow Rate FiO2 11/18/20 12:49 63 11/18/20 11:39 36.2 20 158/78 (104) 96 Room Air Allergies: Coded Allergies: atorvastatin calcium (Unverified Allergy, Unknown, 07/27/16) cefdinir (Verified Allergy, Unknown, 09/01/17) codeine (Unverified Allergy, Unknown, 07/27/16) doxycycline (Verified Allergy, Unknown, 09/01/17) escitalopram oxalate (Unverified Allergy, Unknown, 07/27/16) niacin (Unverified Allergy, Unknown, 07/27/16) oxycodone (Verified Allergy, Unknown, 09/01/17) simvastatin (Unverified Allergy, Unknown, 07/27/16) tramadol (Unverified Allergy, Unknown, 07/27/16) acetaminophen (Verified Adverse Reaction, Mild, 10/17/19) TYLENOL WITH CODEINE MAKE PT ITCH. Copy Copies To 1: RAJWINDER PEREZ MD Discharge Summary Date of Admission November 15, 2020 at 18:08 Date of Discharge Discharge Date: November 18, 2020 Discharge Time: 14:38 Admission Diagnosis Chest pain Consults/Procedures Consulations Cardiology Procedures Stress test Discharge Diagnosis (1) Chest pain Status: Acute Qualifiers: Qualified Codes: R07.9 - Chest pain, unspecified (2) CKD (chronic kidney disease), stage IV Status: Acute (3) Myeloproliferative disorder Status: Chronic (4) (HFpEF) heart failure with preserved ejection fraction Status: Acute (5) T2DM (type 2 diabetes mellitus) Status: Chronic (6) Renal artery stenosis Status: Chronic (7) CAD (coronary artery disease) Status: Chronic Clinical Quality Measures AMI/AHF: ASA po Prior to arrival: Yes DALI RYAN MD November 18, 2020 14:39
--- NOTE | 2020-11-18 14:46 | STRESS TEST ---
DATE OF SERVICE: 11/18/2020 RESTING AND POST REGADENOSON TECHNETIUM-99M TETROFOSMIN SPECT CT IMAGING PRIMARY PHYSICIAN: Dr. Enriquez. ATTENDING PHYSICIAN: Dr. Enriquez. OTHER PHYSICIAN: Dr. Fernandes. CLINICAL DIAGNOSIS: Chest discomfort. Baseline images were carried out after injection of 8.06 mCi of technetium-99m Tetrofosmin. This was followed by 0.4 mg regadenoson and 24.2 mCi of technetium-99m Tetrofosmin for stress imaging. The electrocardiogram showed sinus rhythm at baseline. It did not change significantly with the regadenoson infusion. The patient tolerated the procedure well. Review of images at rest and following stress does not indicate any significant perfusion defects consistent with significant myocardial ischemia or infarction. Gated images show normal global left ventricular systolic function with normal regional wall motion. Left ventricular ejection fraction is calculated to be 62%. Left ventricular end diastolic volume is 65 mL. TID is absent (0.93). CONCLUSIONS: 1. No evidence of any significant myocardial ischemia or infarction on this study. 2. Normal regional wall motion. 3. Normal global left ventricular systolic function with a calculated ejection fraction of 62%. Job ID: [id number] DocumentID: [id number] Dictated Date: 11/18/2020 12:48:28 Customer Relations Coordinator Date: 11/18/2020 14:45:22 Dictated By: CHRISTY FERNANDES MD, MA, FACP, FACC, MTDD
--- NOTE | 2020-11-18 16:57 | Progress Note - Cardiology ---
Cardiology SOAP Progress Note Subjective: No cp other than chronic, intermittent, sharp chest pains in the upper chest that do not have any exacerbating or relieving factors and that are frequently repetitive and that last from seconds to minutes No shortness of breath at rest No palp or syncope No n/v/d Objective: I&O/Vital Signs 11/18/20 11/18/20 11/18/20 11/18/20 07:45 08:00 09:40 11:39 Temp 36.2 36.2 Pulse 69 59 65 Resp 20 14 20 B/P (MAP) 127/60 (82) 202/74 (116) 158/78 (104) Pulse Ox 93 93 96 96 O2 Delivery Room Air Room Air Room Air Room Air 11/18/20 11/18/20 12:49 14:55 Pulse 63 B/P (MAP) 11/17/20 23:59 Intake Total 1840 ml Output Total 200 ml Balance 1640 ml Weight (Pounds): 166 Weight (Ounces): 6.0 Weight (Calculated Kilograms): 75.888558 Constitutional: appears stated age, AAO x 3, well-developed, well-nourished Respiratory: chest is bilaterally symmetric, lungs clear to auscultation Cardiovascular: regular rate-rhythm, S1 and S2 Gastrointestional: soft, audible bowel sounds Extremities: cyanosis, no lower extremity edema bilateral Neurologic/Psychiatric: grossly intact (moves all extremities) Skin: No rash on exposed areas, No ulcerations on exposed areas Results/Procedures: Labs Laboratory Tests 11/18/20 04:35: White Blood Count 11.9H, Red Blood Count 4.42, Hemoglobin 13.1, Hematocrit 41, Mean Corpuscular Volume 93, Mean Corpuscular Hemoglobin 30, Mean Corpuscular Hemoglobin Concent 32, Red Cell Distribution Width 15.2H, Platelet Count 384, Mean Platelet Volume 10.5, Sodium Level 139, Potassium Level 4.0, Chloride Level 106, Carbon Dioxide Level 24, Anion Gap 9, Blood Urea Nitrogen 46H, Creatinine 1.78H, Estimat Glomerular Filtration Rate 28, BUN/Creatinine Ratio 26, Glucose Level 134H, Calcium Level 9.4 A/P: Assessment: Chest pain of undetermined etiology - no ACS- non-cardiac (see MPI results below) Hypertension, better CAD. - H/o cor stents (LAD and diag) with Dr Whitley. - Cardiac cath of October 16, 2019: Coronary artery disease consisting primarily of 70% in-stent restenosis of the left anterior descending (fractional flow reserve 0.8). To this, successful balloon angioplasty was carried out. The left anterior descending has approximately 50% bifurcation stenosis. The left circumflex artery has a 50% stenosis in its proximal to mid portion and 70% stenosis in its mid to distal portion and fractional flow reserve across a combination of these lesions is 0.89, indicating hemodynamic insignificance. Right coronary artery is dominant and has a patent stent in its distal portion. The right coronary artery has mild to moderate diffuse disease. Mildly elevated left ventricular end-diastolic pressure. - MPI of 04/02/20: no ischemia or infarction, LVEF 64% - MPI of 11/18/20: no ischemia or infarction, LVEF 62% Echo of 04/04/20: LVEF 55-60%, grade 1 santoyo dysfunction, mild MR, PASP 30-35 mmHg H/o bilateral renal artery stents with Dr Whitley. 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 and chronic anemia, managed by [facility] [place], [place] Mild carotid art disease on carotid u/s of Mar 2020 No evidence of LE PVD per [facility] of Mar 2020 No evidence of AAA per scan of Mar 2020 Chronic back pain and cervical radiculopathy, followed and treated by her spine surgeon Bilat leg swelling due to venous insuff and, possibly, CCB therapy Multinodular thyroid goiter, followed by her oncologist HLD - refuses statin tx d/t reported intolerance S/p R cataract surgery in early Plan: I interviewed and examined her and reviewed her records I discussed her CV issues with her I discussed her cardiac w/u during this admission with her Ok to d/c from cardiac standpoint Outpt f/u advised Clinical Quality Measures AMI/AHF: ASA po Prior to arrival: Yes CHRISTY ESQUIVEL MD FACP FAC CCDS November 18, 2020 16:57
== END 2020-11-18 14:58 | disposition home or self-care (01) ==
LOC: EDUNIT# 15:01 → ER 15:02 → 4TH 18:08
PROVIDERS: ADMIT Family Medicine; ATTEND Family Medicine
DX: R07.89 Other chest pain (principal); E11.22 Type 2 diabetes mellitus with diabetic chronic kidney disease; E11.42 Type 2 diabetes mellitus with diabetic polyneuropathy; I13.0 Hypertensive heart and chronic kidney disease with heart failure and stage 1 through stage 4 chronic kidney disease, or unspecified chronic kidney disease; N18.4 Chronic kidney disease, stage 4 (severe); I50.30 Unspecified diastolic (congestive) heart failure; I70.1 Atherosclerosis of renal artery; I25.10 Atherosclerotic heart disease of native coronary artery without angina pectoris; I08.0 Rheumatic disorders of both mitral and aortic valves; J44.9 Chronic obstructive pulmonary disease, unspecified; C94.6 Myelodysplastic disease, not elsewhere classified; E78.00 Pure hypercholesterolemia, unspecified; G47.30 Sleep apnea, unspecified; D63.1 Anemia in chronic kidney disease; Z79.82 Long term (current) use of aspirin; Z79.899 Other long term (current) drug therapy; Z79.02 Long term (current) use of antithrombotics/antiplatelets; Z79.84 Long term (current) use of oral hypoglycemic drugs; Z88.5 Allergy status to narcotic agent; Z88.8 Allergy status to other drugs, medicaments and biological substances; Z87.891 Personal history of nicotine dependence; Z90.89 Acquired absence of other organs; Z98.890 Other specified postprocedural states
CPT/HCPCS: 71045; 78452; 80048 ×3; 80053; 80061; 81000; 83735; 83874; 83880; 84484 ×2; 85025 ×2; 85027 ×2; 85379; 85610; 85730; 93005 ×4; 93017; 93041; 93306; 99284; A9502; 36415; G0378

== ENCOUNTER 2020-11-28 13:25 | Outpatient (RCR) | payer MEDICARE, OTHER ==
[2020-11-21 10:09] LABS: BASOPHILS # (AUTO) 0.1 10^3/uL (0.0-0.1); BASOPHILS % (AUTO) 1 % (0-10); EOSINOPHILS # (AUTO) 0.3 10^3/uL (0.0-0.3); EOSINOPHILS % (AUTO) 2 % (0-10); HEMATOCRIT 40 % (35-52); HEMOGLOBIN 12.8 g/dL (11.5-16.0); LYMPHOCYTES # (AUTO) 1.3 10^3/uL (1.0-4.0); LYMPHOCYTES % (AUTO) 10 % (12-44); MEAN CORPUSCULAR HEMOGLOBIN 30 pg (25-34); MEAN CORPUSCULAR HGB CONC 32 g/dL (32-36); MEAN CORPUSCULAR VOLUME 93 fL (80-99); MEAN PLATELET VOLUME 10.3 fL (9.0-12.2); MONOCYTES # (AUTO) 0.6 10^3/uL (0.0-1.0); MONOCYTES % (AUTO) 5 % (0-12); NEUTROPHILS # (AUTO) 10.8 10^3/uL (1.8-7.8); NEUTROPHILS % (AUTO) 82 % (42-75); PLATELET COUNT 387 10^3/uL (130-400); WHITE BLOOD COUNT 13.1 10^3/uL (4.3-11.0)
[2020-11-21 10:28] LABS: ALBUMIN 4.2 GM/DL (3.2-4.5); BILIRUBIN,TOTAL 0.5 MG/DL (0.1-1.0); CREATININE SERUM 1.83 MG/DL (0.60-1.30); POTASSIUM 4.4 MMOL/L (3.6-5.0)
[~2020-11-28 13:25] MED LIST changes: -BISO10TA PO; +BISO10TA6 PO
[2021-01-11] MEDS ORDERED: ISOS60TA63 PO (20:17)
== END 2021-02-19 | disposition home or self-care (01) ==
LOC: ONC 13:25
PROVIDERS: ATTEND Internal Medicine Hematology & Oncology
DX: D47.1 Chronic myeloproliferative disease (principal); E11.22 Type 2 diabetes mellitus with diabetic chronic kidney disease; I12.9 Hypertensive chronic kidney disease with stage 1 through stage 4 chronic kidney disease, or unspecified chronic kidney disease; E78.5 Hyperlipidemia, unspecified; J44.9 Chronic obstructive pulmonary disease, unspecified; Z86.2 Personal history of diseases of the blood and blood-forming organs and certain disorders involving the immune mechanism; I25.10 Atherosclerotic heart disease of native coronary artery without angina pectoris; Z95.5 Presence of coronary angioplasty implant and graft; I70.1 Atherosclerosis of renal artery; D50.9 Iron deficiency anemia, unspecified; Z87.891 Personal history of nicotine dependence; Z79.82 Long term (current) use of aspirin; Z79.84 Long term (current) use of oral hypoglycemic drugs; Z79.899 Other long term (current) drug therapy; N18.4 Chronic kidney disease, stage 4 (severe); G47.33 Obstructive sleep apnea (adult) (pediatric); M19.90 Unspecified osteoarthritis, unspecified site; Z99.89 Dependence on other enabling machines and devices
CPT/HCPCS: 80053; 82728; 83615; 85025; 99213

== ENCOUNTER 2021-01-11 17:50 | Emergency (ER) | payer MEDICARE, OTHER ==
[~2021-01-11] VITALS: Ht 160 cm; Wt 72.0 kg
[~2021-01-11 17:50] MED LIST changes: +BISO10TA PO; -BISO10TA6 PO
--- NOTE | 2021-01-11 18:57 | ED Cardiac General ---
History of Present Illness General Chief Complaint: Cardiac/General Problems Stated Complaint: LOW BP, HX OF HEART FAILURE Nursing Triage Note: PT TO ED W/ C/O HER "BLOOD PRESSURE IS GOING CRAZY". PT HAS A LOG OF HER BLOOD PRESSURES OVER THE PAST SEVERAL DAYS ET REPORTS THEY ARE EITHER "REALLY HIGH OR REALLY LOW". PT DENIES CHEST PAIN AT THIS TIME. NO OTHER C/O VOICED Source: patient Exam Limitations: no limitations History of Present Illness Date Seen by Provider: Jan 11, 2021 Time Seen by Provider: 18:08 Initial Comments Patient to the ER by private conveyance with her and chief complaint that she been having some feelings of lightheadedness and feeling like she might pass out when she gets up from sitting or lying position. She is also had problems with labile blood pressure. She says around 4:00 this afternoon it was 90/60 and a few minutes later she rechecked it and it was 180/60. Presently when she arrived her blood pressure is elevated in the 1 80-1 90 systolic range. She takes bisoprolol Imdur 90 mg, doxazosin 8 mg and furosemide 20 mg daily. She recently started the furosemide after a stay at the ER for heart failure and Dom. Her next follow-up appointment with her ear machine operator Dr. Fernandes is not until March. She takes the doxazosin as needed and says she has not taken it today. She has been on the other medicines for a long time many years. She says typically she her weight was in the 170-180# when she developed symptoms of her heart failure and it recently has been 160 every day, her baseline. No increased orthopnea, dyspnea or pedal edema Allergies and Home Medications Allergies Coded Allergies: atorvastatin calcium (Unverified Allergy, Unknown, 07/27/16) cefdinir (Verified Allergy, Unknown, 09/01/17) codeine (Unverified Allergy, Unknown, 07/27/16) doxycycline (Verified Allergy, Unknown, 09/01/17) escitalopram oxalate (Unverified Allergy, Unknown, 07/27/16) niacin (Unverified Allergy, Unknown, 07/27/16) oxycodone (Verified Allergy, Unknown, 09/01/17) simvastatin (Unverified Allergy, Unknown, 07/27/16) tramadol (Unverified Allergy, Unknown, 07/27/16) acetaminophen (Verified Adverse Reaction, Mild, 10/17/19) TYLENOL WITH CODEINE MAKE PT ITCH. Home Medications Acetaminophen 500 Mg Tablet, 500-1,000 MG PO Q6H PRN for PAIN-MILD (1-4), (Reported) Amlodipine Besylate 10 Mg Tablet, 10 MG PO DAILY, (Reported) Aspirin 81 Mg Tablet.dr, 81 MG PO DAILY, (Reported) Bisoprolol Fumarate 10 Mg Tablet, 10 MG PO DAILY, (Reported) Clopidogrel Bisulfate 75 Mg Tablet, 75 MG PO DAILY, (Reported) Doxazosin Mesylate 8 Mg Tablet, 8 MG PO BID, (Reported) Furosemide 20 Mg Tablet, 20 MG PO DAILY, (Reported) Gabapentin 300 Mg Capsule, 300 MG PO 0800,1500,2200, (Reported) Glimepiride 4 Mg Tablet, 4 MG PO BID, (Reported) Isosorbide Mononitrate 120 Mg Tab.er.24h, 120 MG PO DAILY, (Reported) Losartan Potassium 100 Mg Tablet, 100 MG PO DAILY, (Reported) Pantoprazole Sodium 40 Mg Tablet.dr, 40 MG PO DAILY, (Reported) Patient Home Medication List Home Medication List Reviewed: Yes Review of Systems Review of Systems Constitutional: No chills, No diaphoresis EENTM: No Blurred Vision, No Double Vision Respiratory: Denies Cough, Denies Shortness of Air Cardiovascular: Denies Chest Pain, Denies Lightheadedness Gastrointestinal: Denies Constipated, Denies Diarrhea, Denies Nausea Genitourinary: Denies Burning, Denies Discharge Musculoskeletal: No back pain, No joint pain Skin: No pruritus, No rash Psychiatric/Neurological: Denies Headache, Denies Numbness, Denies Paresthesia All Other Systems Reviewed Negative Unless Noted: Yes Past Obaroog-Bdjmks-Vozaww Hx Patient Social History Tobacco Use?: No Use of E-Cig and/or Vaping dev: No Substance use?: No Alcohol Use?: No Pt feels they are or have been: No Immunizations Up To Date Tetanus Booster (TDap): Less than 5yrs PED Vaccines UTD: No Seasonal Allergies Seasonal Allergies: No Past Medical History Surgeries: Yes Bladder Surgery, Gallbladder, Hysterectomy, Orthopedic, Tonsillectomy Respiratory: Yes Sleep Apnea, COPD Currently Using CPAP: Yes Cardiac: Yes Coronary Artery Disease, High Cholesterol, Hypertension Neurological: No Reproductive Disorders: No Female Reproductive Disorders: Denies Sexually Transmitted Disease: No HIV/AIDS: No Genitourinary: Yes (INCONT) Gastrointestinal: Yes Chronic Diarrhea, Polyps Musculoskeletal: Yes (, CERVICAL STENOSIS) Fibromyalgia Endocrine: Yes (history of thyroid nodules) Adrenal Disease, Diabetes, Non-Insulin dep Loss of Vision: Bilateral Hearing Impairment: Hard of Hearing Psychosocial: No Integumentary: No Blood Disorders: Yes (ANEMIA, POSSIBLE EARLY LEUKEMIA) Adverse Reaction/Blood Tranf: No Family Medical History Heart Disease, Cancer, CAD Over 55 Years Old, Stroke Non-contributory Physical Exam Vital Signs Vital Signs - First Documented 01/11/21 17:59 Temp 36.6 Pulse 66 Resp 20 B/P (MAP) 193/86 (121) Pulse Ox 96 O2 Delivery Room Air Capillary Refill : Less Than 3 Seconds Height, Weight, BMI Height: 5'2.00" Weight: 166lbs. 6.0oz. 75.561699hq; 28.00 BMI Method:Stated General Appearance: No Apparent Distress, WD/WN HEENT: PERRL/EOMI, Pharynx Normal, Moist Mucous Membranes Neck: Full Range of Motion, Normal Inspection Respiratory: Lungs Clear, Normal Breath Sounds, No Accessory Muscle Use, No Respiratory Distress Cardiovascular: Regular Rate, Rhythm, Normal Peripheral Pulses Gastrointestinal: Normal Bowel Sounds, Non Tender, Soft Extremity: Normal Capillary Refill, Normal Inspection, No Pedal Edema Neurologic/Psychiatric: Alert, Oriented x3, No Motor/Sensory Deficits, Normal Mood/Affect Skin: Normal Color, Warm/Dry Progress/Results/Core Measures Results/Orders Lab Results Laboratory Tests Test 01/11/21 18:55 Range/Units White Blood Count 13.0 H 4.3-11.0 10^3/uL Red Blood Count 4.13 3.80-5.11 10^6/uL Hemoglobin 12.8 11.5-16.0 g/dL Hematocrit 39 35-52 % Mean Corpuscular Volume 95 80-99 fL Mean Corpuscular Hemoglobin 31 25-34 pg Mean Corpuscular Hemoglobin Concent 33 32-36 g/dL Red Cell Distribution Width 15.6 H 10.0-14.5 % Platelet Count 407 H 130-400 10^3/uL Mean Platelet Volume 10.5 9.0-12.2 fL Immature Granulocyte % (Auto) 1 % Neutrophils (%) (Auto) 76 H 42-75 % Lymphocytes (%) (Auto) 15 12-44 % Monocytes (%) (Auto) 6 0-12 % Eosinophils (%) (Auto) 3 0-10 % Basophils (%) (Auto) 1 0-10 % Neutrophils # (Auto) 9.8 H 1.8-7.8 10^3/uL Lymphocytes # (Auto) 1.9 1.0-4.0 10^3/uL Monocytes # (Auto) 0.7 0.0-1.0 10^3/uL Eosinophils # (Auto) 0.3 0.0-0.3 10^3/uL Basophils # (Auto) 0.1 0.0-0.1 10^3/uL Immature Granulocyte # (Auto) 0.1 0.0-0.1 10^3/uL Sodium Level 141 135-145 MMOL/L Potassium Level 4.2 3.6-5.0 MMOL/L Chloride Level 112 H 98-107 MMOL/L Carbon Dioxide Level 18 L 21-32 MMOL/L Anion Gap 11 5-14 MMOL/L Blood Urea Nitrogen 42 H 7-18 MG/DL Creatinine 2.19 H 0.60-1.30 MG/DL Estimat Glomerular Filtration Rate 22 BUN/Creatinine Ratio 19 Glucose Level 127 H 70-105 MG/DL Calcium Level 9.2 8.5-10.1 MG/DL Corrected Calcium 9.0 8.5-10.1 MG/DL Total Bilirubin 0.4 0.1-1.0 MG/DL Aspartate Amino Transf (AST/SGOT) 25 5-34 U/L Alanine Aminotransferase (ALT/SGPT) 17 0-55 U/L Alkaline Phosphatase 82 40-136 U/L Troponin I < 0.028 <0.028 NG/ML B-Type Natriuretic Peptide 298.2 H <100.0 PG/ML Total Protein 7.1 6.4-8.2 GM/DL Albumin 4.2 3.2-4.5 GM/DL My Orders Orders - ABHIJEET NARAYAN Cbc With Automated Diff (01/11/21 18:13) Comprehensive Metabolic Panel (01/11/21 18:13) BNP (01/11/21 18:13) Troponin I (01/11/21 18:13) Continuous Ekg Monitoring (01/11/21 18:13) Ekg Tracing (01/11/21 18:13) Chest 1 View, Ap/Pa Only (01/11/21 18:47) Orthostatic Vital Signs (Adult (01/11/21 18:47) Vital Signs/I&O 01/11/21 01/11/21 17:59 19:02 Temp 36.6 Pulse 66 54 64 69 Resp 20 B/P (MAP) 193/86 (121) 179/75 (109) 164/72 (102) 161/67 (98) Pulse Ox 96 O2 Delivery Room Air Blood Pressure Mean: 121 Progress Progress Note #1: Time: 18:59 Progress Note With the addition of the Lasix she probably does not need as much Imdur as she is on. We will check some orthostatic vital signs, labs x-ray EKG since she was having some discomfort and a BNP. [place] syncope score. Progress Note #2: Time: 20:11 Progress Note Between the patient's labs clinical exam and orthostats she is drying appropriately so however he may be a little bit borderline orthostatic. I suspect with the addition of the Lasix she needs her Imdur decreased. We will also hold her doxazosin and continue the other medicines further cardio renal protective effects. Her creatinine is near its baseline of 1.8-2.0. She is not having any further concerns at this time. She agrees with plan. We will send her a new prescription for the Imdur at 60 mg a day to [facility]. She is not wearing her CPAP and we have encouraged her that if she wants to control her b lood pressure controlling her sleep apnea is very crucial. She is going to reach out to [facility] about the different style of mask. We suggest she do this new course of medicines for the next 2 weeks and follow-up in [address] Fernandes or her primary care doctor to readdress her blood pressure medicines. Initial ECG Impression Date: Jan 11, 2021 Initial ECG Impression Time: 18:40 Initial ECG Rate: 61 Initial ECG Rhythm: Normal Sinus Initial ECG Intervals: Normal Initial ECG Impression: Normal, Nonspecific Changes Initial ECG Comparisson: No Previous ECG Available Comment Normal sinus rhythm without clinically relevant ST changes. LVH. Diagnostic Imaging Diagonstic Imaging: Xray Plain Films/CT/US/NM/MRI: chest Comments Cardiomegaly. No acute cardiopulmonary process. [facility] [place], [place] NAME: FREDO NEWBERRY [facility] REC#: [id number] PT STATUS: REG ER : 1945 PHYSICIAN: ABHIJEET NARAYAN MD ADMIT DATE: 01/11/21/ER Draft Date of Exam:01/11/21 CHEST 1 VIEW, AP/PA ONLY INDICATION: Hypertension, syncope. COMPARISON: 11/15/2020. EXAMINATION: Single view of the chest was obtained. FINDINGS: Clear lungs, bilaterally. The heart is normal. There is no pneumothorax but osseous structures are normal. IMPRESSION: Negative chest. Dictated on workstation # [id number] Dict: 01/11/211923 Trans: 01/11/211925 [facility] [id number] Interpreted by: ALFREDA OWEN Electronically signed by: Reviewed: Reviewed by Me Departure Impression Primary Impression: Labile hypertension Additional Impressions: Borderline orthostasis Paroxysmal hypertension Disposition: 01 HOME, SELF-CARE Condition: Stable Departure-Patient Inst. Decision time for Depature: 20:13 Referrals: RAJWINDER CARVAJAL MD (PCP/Family) Primary Care Physician CHRISTY FERNANDES MD FACP FACC CCDS Patient Instructions: High Blood Pressure (DC) Add. Discharge Instructions: I suspect that with the addition of the Lasix/furosemide your medicines are a little too much and you are experiencing paroxysmal increased blood pressure. That is why you are having low blood pressures followed by very high blood pressures. Stop taking the doxazosin. Stop taking the Imdur/isosorbide mononitrate 120 mg. Start taking the Imdur/isosorbide mononitrate 60 mg once a day. Continue taking your losartan, bisoprolol, Lasix/furosemide. Promptly return to the ER if you are having crushing chest pain, shortness of air or other worrisome symptoms. Plan to follow-up either with your primary care doctor or your ear machine operator in 2 to 4 weeks on this new medication regimen. I encourage 3-5 times a week that you check your blood pressure first thing in the morning when you get up. If you are getting lightheaded, passing out or falling then I encourage you to return to the ER or your primary care doctor. All discharge instructions reviewed with patient and/or family. Voiced understanding. Scripts Isosorbide Mononitrate (Isosorbide Mononitrate ER) 60 Mg Tab 60 MG PO DAILY for 30 Days, #30 TAB 0 Refills Prov: ABHIJEET NARYAAN 01/11/21 Copy Copies To 1: RAJWINDER CARVAJAL MD; CHRISTY FERNANDES MD FACP FAC CCDS ABHIJEET NARAYAN Jan 11, 2021 18:57
[2021-01-11 19:02] VITALS: BP_SYST 161; BP_SYST 164; BP_SYST 179; BP_DIAS 67; BP_DIAS 72; BP_DIAS 75
[2021-01-11 19:04] LABS: BASOPHILS # (AUTO) 0.1 10^3/uL (0.0-0.1); BASOPHILS % (AUTO) 1 % (0-10); EOSINOPHILS # (AUTO) 0.3 10^3/uL (0.0-0.3); EOSINOPHILS % (AUTO) 3 % (0-10); HEMATOCRIT 39 % (35-52); HEMOGLOBIN 12.8 g/dL (11.5-16.0); LYMPHOCYTES # (AUTO) 1.9 10^3/uL (1.0-4.0); LYMPHOCYTES % (AUTO) 15 % (12-44); MEAN CORPUSCULAR HEMOGLOBIN 31 pg (25-34); MEAN CORPUSCULAR HGB CONC 33 g/dL (32-36); MEAN CORPUSCULAR VOLUME 95 fL (80-99); MEAN PLATELET VOLUME 10.5 fL (9.0-12.2); MONOCYTES # (AUTO) 0.7 10^3/uL (0.0-1.0); MONOCYTES % (AUTO) 6 % (0-12); NEUTROPHILS # (AUTO) 9.8 10^3/uL (1.8-7.8); NEUTROPHILS % (AUTO) 76 % (42-75); PLATELET COUNT 407 10^3/uL (130-400)
--- NOTE | 2021-01-11 19:26 | Diagnostic Imaging Report ---
INDICATION: Hypertension, syncope. COMPARISON: 11/15/2020. EXAMINATION: Single view of the chest was obtained. FINDINGS: Clear lungs, bilaterally. The heart is normal. There is no pneumothorax but osseous structures are normal. IMPRESSION: Negative chest. Dictated by: Dictated on workstation # [id number]
[2021-01-11 19:32] LABS: ALBUMIN 4.2 GM/DL (3.2-4.5); TOTAL PROTEIN 7.1 GM/DL (6.4-8.2)
[2021-01-11 19:49] LABS: ALANINE AMINOTRANSFERASE 17 U/L (0-55); ALKALINE PHOSPHATASE 82 U/L (40-136); BILIRUBIN,TOTAL 0.4 MG/DL (0.1-1.0); BUN/CREATININE RATIO 19; CALCIUM 9.2 MG/DL (8.5-10.1); CARBON DIOXIDE 18 MMOL/L (21-32); CHLORIDE 112 MMOL/L (98-107); GFR ESTIMATED 22; GLUCOSE 127 MG/DL (70-105); POTASSIUM 4.2 MMOL/L (3.6-5.0); SODIUM 141 MMOL/L (135-145)
[2021-01-11 19:51] LABS: CREATININE SERUM 2.19 MG/DL (0.60-1.30)
[2021-01-11] MEDS ORDERED: ISOS60TA63 PO (20:17)
[2021-01-11 20:37] VITALS: BP 183/79
== END 2021-01-11 20:37 | disposition home or self-care (01) ==
LOC: EDUNIT# 17:50 → ER 17:54
DX: I11.0 Hypertensive heart disease with heart failure (principal); I50.9 Heart failure, unspecified; J44.9 Chronic obstructive pulmonary disease, unspecified; G47.30 Sleep apnea, unspecified; E11.9 Type 2 diabetes mellitus without complications; Z79.01 Long term (current) use of anticoagulants; Z79.82 Long term (current) use of aspirin
CPT/HCPCS: 36415; 71045; 80053; 83880; 84484; 85025; 93005

== ENCOUNTER 2021-01-20 01:08 | Emergency (ER) | payer MEDICARE, OTHER ==
[~2021-01-20] VITALS: Ht 177 cm; Wt 72.7 kg
[~2021-01-20 01:08] MED LIST changes: -BISO10TA PO; +BISO10TA6 PO; +ISOS60TA63 PO
[2021-01-20 01:43] LABS: BASOPHILS # (AUTO) 0.1 10^3/uL (0.0-0.1); BASOPHILS % (AUTO) 1 % (0-10); EOSINOPHILS # (AUTO) 0.4 10^3/uL (0.0-0.3); EOSINOPHILS % (AUTO) 3 % (0-10); HEMATOCRIT 42 % (35-52); HEMOGLOBIN 13.7 g/dL (11.5-16.0); LYMPHOCYTES # (AUTO) 1.7 10^3/uL (1.0-4.0); LYMPHOCYTES % (AUTO) 12 % (12-44); MEAN CORPUSCULAR HEMOGLOBIN 31 pg (25-34); MEAN CORPUSCULAR HGB CONC 33 g/dL (32-36); MEAN CORPUSCULAR VOLUME 94 fL (80-99); MEAN PLATELET VOLUME 10.5 fL (9.0-12.2); MONOCYTES # (AUTO) 0.8 10^3/uL (0.0-1.0); MONOCYTES % (AUTO) 6 % (0-12); NEUTROPHILS # (AUTO) 10.6 10^3/uL (1.8-7.8); NEUTROPHILS % (AUTO) 78 % (42-75); PLATELET COUNT 414 10^3/uL (130-400); WHITE BLOOD COUNT 13.5 10^3/uL (4.3-11.0)
[2021-01-20] MEDS ORDERED: hydrALAZINE (APESOLINE) 20 MG/ML VIAL IV ONE ×2 (01:45→03:00)
[2021-01-20 01:51] LABS: BILIRUBIN,URINE NEGATIVE (NEGATIVE); CLARITY,URINE CLEAR; COLOR,URINE YELLOW; GLUCOSE, URINE (UA) NEGATIVE (NEGATIVE); KETONES,URINE NEGATIVE (NEGATIVE); LEUKOCYTE ESTERASE ,URINE NEGATIVE (NEGATIVE); NITRITE,URINE NEGATIVE (NEGATIVE); PH,URINE 6.5 (5-9); PROTEIN,URINE 2+ (NEGATIVE)
[2021-01-20 01:54] LABS: ALBUMIN 4.6 GM/DL (3.2-4.5)
[2021-01-20 01:55] LABS: CHLORIDE 110 MMOL/L (98-107); POTASSIUM 3.8 MMOL/L (3.6-5.0); SODIUM 146 MMOL/L (135-145)
[2021-01-20 01:56] LABS: CALCIUM 9.6 MG/DL (8.5-10.1)
[2021-01-20 01:57] LABS: GLUCOSE 170 MG/DL (70-105); TOTAL PROTEIN 7.6 GM/DL (6.4-8.2)
[2021-01-20 01:58] LABS: CARBON DIOXIDE 22 MMOL/L (21-32); INR 0.9 (0.8-1.4); PROTHROMBIN TIME PATIENT 12.7 SEC (12.2-14.7)
[2021-01-20 01:59] LABS: BILIRUBIN,TOTAL 0.4 MG/DL (0.1-1.0)
[2021-01-20 02:00] LABS: ALKALINE PHOSPHATASE 91 U/L (40-136); CREATININE SERUM 1.57 MG/DL (0.60-1.30); GFR ESTIMATED 32
[2021-01-20 02:02] LABS: BUN/CREATININE RATIO 19
[2021-01-20 02:03] LABS: ALANINE AMINOTRANSFERASE 18 U/L (0-55); MAGNESIUM 1.9 MG/DL (1.6-2.4)
[2021-01-20 02:04] LABS: LIPASE 39 U/L (8-78)
[2021-01-20 02:06] LABS: BACTERIA,URINE NEGATIVE /HPF
[2021-01-20 02:25] LABS: TSH (THYROID ANALYZER) 2.83 UIU/ML (0.35-4.94)
[2021-01-20] MEDS ORDERED: NITROGLYCERIN 2% OINT 1 GM UNIT DOSE PACKET TOP ONE (02:30)
--- NOTE | 2021-01-20 03:32 | ED Cardiac General ---
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 DENIES RADIATION OF THE CP, DENIES NV Allergies and Home Medications Allergies Coded Allergies: atorvastatin calcium (Unverified Allergy, Unknown, 07/27/16) cefdinir (Verified Allergy, Unknown, 09/01/17) codeine (Unverified Allergy, Unknown, 07/27/16) doxycycline (Verified Allergy, Unknown, 09/01/17) escitalopram oxalate (Unverified Allergy, Unknown, 07/27/16) niacin (Unverified Allergy, Unknown, 07/27/16) oxycodone (Verified Allergy, Unknown, 09/01/17) simvastatin (Unverified Allergy, Unknown, 07/27/16) tramadol (Unverified Allergy, Unknown, 07/27/16) acetaminophen (Verified Adverse Reaction, Mild, 10/17/19) TYLENOL WITH CODEINE MAKE PT ITCH. Home Medications Acetaminophen 500 Mg Tablet, 500-1,000 MG PO Q6H PRN for PAIN-MILD (1-4), (Reported) Amlodipine Besylate 10 Mg Tablet, 10 MG PO DAILY, (Reported) Aspirin 81 Mg Tablet.dr, 81 MG PO DAILY, (Reported) Bisoprolol Fumarate 10 Mg Tablet, 10 MG PO DAILY, (Reported) Clopidogrel Bisulfate 75 Mg Tablet, 75 MG PO DAILY, (Reported) Doxazosin Mesylate 8 Mg Tablet, 8 MG PO BID, (Reported) Furosemide 20 Mg Tablet, 20 MG PO DAILY, (Reported) Gabapentin 300 Mg Capsule, 300 MG PO 0800,1500,2200, (Reported) Glimepiride 4 Mg Tablet, 4 MG PO BID, (Reported) Isosorbide Mononitrate 120 Mg Tab.er.24h, 120 MG PO DAILY, (Reported) Isosorbide Mononitrate 60 Mg Tab, 60 MG PO DAILY Prescribed by: ABHIJEET NARAYAN on 01/11/212016 Losartan Potassium 100 Mg Tablet, 100 MG PO DAILY, (Reported) Pantoprazole Sodium 40 Mg Tablet.dr, 40 MG PO DAILY, (Reported) Past Rosnnrg-Ifqhpz-Okoosz Hx Immunizations Up To Date Tetanus Booster (TDap): Less than 5yrs PED Vaccines UTD: No Seasonal Allergies Seasonal Allergies: No Past Medical History Surgeries: Yes Bladder Surgery, Gallbladder, Hysterectomy, Orthopedic, Tonsillectomy Respiratory: Yes Sleep Apnea, COPD Currently Using CPAP: Yes Cardiac: Yes Coronary Artery Disease, High Cholesterol, Hypertension Neurological: No Reproductive Disorders: No Female Reproductive Disorders: Denies Sexually Transmitted Disease: No HIV/AIDS: No Genitourinary: Yes (INCONT) Gastrointestinal: Yes Chronic Diarrhea, Polyps Musculoskeletal: Yes (, CERVICAL STENOSIS) Fibromyalgia Endocrine: Yes (history of thyroid nodules) Adrenal Disease, Diabetes, Non-Insulin dep Loss of Vision: Bilateral Hearing Impairment: Hard of Hearing Psychosocial: No Integumentary: No Blood Disorders: Yes (ANEMIA, POSSIBLE EARLY LEUKEMIA) Adverse Reaction/Blood Tranf: No Family Medical History Heart Disease, Cancer, CAD Over 55 Years Old, Stroke Non-contributory Physical Exam Vital Signs Vital Signs - First Documented 01/20/21 01:15 Temp 36.6 Pulse 73 Resp 18 B/P (MAP) 244/109 (154) Pulse Ox 99 O2 Delivery Room Air Capillary Refill : Less Than 3 Seconds Height, Weight, BMI Height: 5'2.00" Weight: 166lbs. 6.0oz. [id number]; 23.00 BMI Method:Stated Progress/Results/Core Measures Results/Orders Lab Results Laboratory Tests Test 01/20/21 01:34 01/20/21 01:45 Range/Units White Blood Count 13.5 H 4.3-11.0 10^3/uL Red Blood Count 4.44 3.80-5.11 10^6/uL Hemoglobin 13.7 11.5-16.0 g/dL Hematocrit 42 35-52 % Mean Corpuscular Volume 94 80-99 fL Mean Corpuscular Hemoglobin 31 25-34 pg Mean Corpuscular Hemoglobin Concent 33 32-36 g/dL Red Cell Distribution Width 15.3 H 10.0-14.5 % Platelet Count 414 H 130-400 10^3/uL Mean Platelet Volume 10.5 9.0-12.2 fL Immature Granulocyte % (Auto) 1 % Neutrophils (%) (Auto) 78 H 42-75 % Lymphocytes (%) (Auto) 12 12-44 % Monocytes (%) (Auto) 6 0-12 % Eosinophils (%) (Auto) 3 0-10 % Basophils (%) (Auto) 1 0-10 % Neutrophils # (Auto) 10.6 H 1.8-7.8 10^3/uL Lymphocytes # (Auto) 1.7 1.0-4.0 10^3/uL Monocytes # (Auto) 0.8 0.0-1.0 10^3/uL Eosinophils # (Auto) 0.4 H 0.0-0.3 10^3/uL Basophils # (Auto) 0.1 0.0-0.1 10^3/uL Immature Granulocyte # (Auto) 0.1 0.0-0.1 10^3/uL Prothrombin Time 12.7 12.2-14.7 SEC INR Comment 0.9 0.8-1.4 Activated Partial Thromboplast Time 31 24-35 SEC Sodium Level 146 H 135-145 MMOL/L Potassium Level 3.8 3.6-5.0 MMOL/L Chloride Level 110 H 98-107 MMOL/L Carbon Dioxide Level 22 21-32 MMOL/L Anion Gap 14 5-14 MMOL/L Blood Urea Nitrogen 30 H 7-18 MG/DL Creatinine 1.57 H 0.60-1.30 MG/DL Estimat Glomerular Filtration Rate 32 BUN/Creatinine Ratio 19 Glucose Level 170 H 70-105 MG/DL Calcium Level 9.6 8.5-10.1 MG/DL Corrected Calcium 8.5-10.1 MG/DL Magnesium Level 1.9 1.6-2.4 MG/DL Total Bilirubin 0.4 0.1-1.0 MG/DL Aspartate Amino Transf (AST/SGOT) 23 5-34 U/L Alanine Aminotransferase (ALT/SGPT) 18 0-55 U/L Alkaline Phosphatase 91 40-136 U/L Troponin I < 0.028 <0.028 NG/ML B-Type Natriuretic Peptide 366.6 H <100.0 PG/ML Total Protein 7.6 6.4-8.2 GM/DL Albumin 4.6 H 3.2-4.5 GM/DL Lipase 39 8-78 U/L TSH [place] Testing 2.83 0.35-4.94 UIU/ML Urine Color YELLOW Urine Clarity CLEAR Urine pH 6.5 5-9 Urine Specific [place] 1.010 L 1.016-1.022 Urine Protein 2+ H NEGATIVE Urine Glucose (UA) NEGATIVE NEGATIVE Urine Ketones NEGATIVE NEGATIVE Urine Nitrite NEGATIVE NEGATIVE Urine Bilirubin NEGATIVE NEGATIVE Urine Urobilinogen 0.2 < = 1.0 MG/DL Urine Leukocyte Esterase NEGATIVE NEGATIVE Urine RBC (Auto) TRACE-L NEGATIVE Urine RBC NONE /HPF Urine WBC NONE /HPF Urine Squamous Epithelial Cells 2-5 /HPF Urine Crystals NONE /LPF Urine Bacteria NEGATIVE /HPF Urine Casts NONE /LPF Urine Mucus NEGATIVE /LPF Urine Culture Indicated NO My Orders Orders - DARIA HAGAN DO Ed Iv/Invasive Line Start (01/20/21 01:19) Ekg Tracing (01/20/21 01:19) Monitor-Rhythm Ecg Trace Only (01/20/21 01:19) BNP (01/20/21 01:19) Cbc With Automated Diff (01/20/21:19) Comprehensive Metabolic Panel (01/20/21 01:19) Lipase (01/20/21 01:19) Magnesium (01/20/21 01:19) Protime With Inr (01/20/21 01:19) Partial Thromboplastin Time (01/20/21 01:19) Thyroid Analyzer (01/20/21 01:19) Troponin I (01/20/21 01:19) Chest 1 View, Ap/Pa Only (01/20/21 01:19) Hydralazine Injection (Apresoline Inject (01/20/21 01:45) Ua Culture If Indicated (01/20/21 01:36) Nitroglycerin Ointment (Nitrobid Ointme (01/20/21 02:30) Hydralazine Injection (Apresoline Inject (01/20/21 03:00) Medications Given in ED Current Medications Medications Dose Ordered Sig/Syl Route Start Time Stop Time Status Last Admin Dose Admin Hydralazine HCl 10 mg ONCE ONCE IV 01/20/21 01:45 01/20/21 01:47 DC 01/20/21 01:59 10 MG Nitroglycerin 1 inch ONCE ONCE TOP 01/20/21 02:30 01/20/21 02:31 DC 01/20/21 02:39 1 INCH Vital Signs/I&O 01/20/21 01:15 Temp 36.6 Pulse 73 Resp 18 B/P (MAP) 244/109 (154) Pulse Ox 99 O2 Delivery Room Air Blood Pressure Mean: 154 Departure Impression Primary Impression: Uncontrolled hypertension Disposition: 01 HOME, SELF-CARE Condition: Improved Departure-Patient Inst. Decision time for Depature: 03:44 Referrals: RAJWINDER CARVAJAL MD (PCP/Family) Primary Care Physician Patient Instructions: High Blood Pressure (DC), DASH Diet Add. 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 Voiced understanding. DARIA HAGAN DO Jan 20, 2021 03:32
[2021-01-20 03:53] VITALS: BP 148/65
--- NOTE | 2021-01-20 06:07 | Diagnostic Imaging Report ---
Clinical indication: Patient with chest pain and hypertension. Exam: Portable chest x-ray upright view. Comparisons: Chest x-ray dated 01/11/2021. Findings: Lungs/pleura: Lungs are clear. There is no pneumothorax. There is no pleural effusion. Mediastinum: Unremarkable. Pulmonary vasculature: Unremarkable. Heart: Unremarkable. Bones/extrathoracic soft tissue: There are degenerative spurs involving the thoracic spine. Surgical clips are seen overlying the right upper quadrant which could be related to cholecystectomy changes. Impression: There is no radiographic evidence of acute cardiopulmonary process. Dictated by: Dictated on workstation # [id number]
== END 2021-01-20 03:53 | disposition home or self-care (01) ==
LOC: EDUNIT# 01:08 → ER 01:12
DX: I10 Essential (primary) hypertension (principal); I25.10 Atherosclerotic heart disease of native coronary artery without angina pectoris; E11.9 Type 2 diabetes mellitus without complications; J44.9 Chronic obstructive pulmonary disease, unspecified; Z88.5 Allergy status to narcotic agent; Z79.84 Long term (current) use of oral hypoglycemic drugs; Z79.02 Long term (current) use of antithrombotics/antiplatelets; Z79.82 Long term (current) use of aspirin; Z79.899 Other long term (current) drug therapy
CPT/HCPCS: 36415; 71045; 80053; 81000; 83690; 83735; 83880; 84443; 84484; 85025; 85610; 85730; 93005; 93041; 96374

== ENCOUNTER 2021-05-12 10:10 | Outpatient (RCR) | payer MEDICARE, OTHER ==
[2021-05-05 09:50] LABS: BASOPHILS # (AUTO) 0.1 10^3/uL (0.0-0.1); BASOPHILS % (AUTO) 1 % (0-10); EOSINOPHILS # (AUTO) 0.3 10^3/uL (0.0-0.3); EOSINOPHILS % (AUTO) 2 % (0-10); HEMATOCRIT 40 % (35-52); LYMPHOCYTES # (AUTO) 1.2 10^3/uL (1.0-4.0); LYMPHOCYTES % (AUTO) 10 % (12-44); MEAN CORPUSCULAR HEMOGLOBIN 31 pg (25-34); MEAN CORPUSCULAR HGB CONC 32 g/dL (32-36); MEAN CORPUSCULAR VOLUME 96 fL (80-99); MEAN PLATELET VOLUME 10.1 fL (9.0-12.2); MONOCYTES # (AUTO) 0.6 10^3/uL (0.0-1.0); MONOCYTES % (AUTO) 4 % (0-12); NEUTROPHILS # (AUTO) 10.4 10^3/uL (1.8-7.8); NEUTROPHILS % (AUTO) 82 % (42-75); PLATELET COUNT 336 10^3/uL (130-400); WHITE BLOOD COUNT 12.7 10^3/uL (4.3-11.0)
[2021-05-05 10:17] LABS: BILIRUBIN,TOTAL 0.4 MG/DL (0.1-1.0); CALCIUM 9.3 MG/DL (8.5-10.1); CREATININE SERUM 1.72 MG/DL (0.60-1.30); POTASSIUM 4.2 MMOL/L (3.6-5.0); TOTAL PROTEIN 6.7 GM/DL (6.4-8.2)
[~2021-05-12 10:10] MED LIST changes: -LEVO250T46 PO; +LVF250T PO
== END 2021-06-27 | disposition home or self-care (01) ==
LOC: ONC 10:10
PROVIDERS: ATTEND Internal Medicine Hematology & Oncology
DX: D47.1 Chronic myeloproliferative disease (principal); E11.22 Type 2 diabetes mellitus with diabetic chronic kidney disease; I12.9 Hypertensive chronic kidney disease with stage 1 through stage 4 chronic kidney disease, or unspecified chronic kidney disease; N18.4 Chronic kidney disease, stage 4 (severe); J44.9 Chronic obstructive pulmonary disease, unspecified; I25.10 Atherosclerotic heart disease of native coronary artery without angina pectoris; G47.33 Obstructive sleep apnea (adult) (pediatric); E78.2 Mixed hyperlipidemia; D50.9 Iron deficiency anemia, unspecified; D63.1 Anemia in chronic kidney disease; I65.23 Occlusion and stenosis of bilateral carotid arteries; Z86.2 Personal history of diseases of the blood and blood-forming organs and certain disorders involving the immune mechanism; Z72.0 Tobacco use
CPT/HCPCS: 80053; 82728; 83615; 85025; 99213

== ENCOUNTER 2021-05-12 23:59 | Emergency (ER) | payer MEDICARE, OTHER ==
[~2021-05-12] VITALS: Ht 157.5 cm; Wt 74.4 kg
[~2021-05-12 23:59] MED LIST changes: +LEVO250T46 PO; -LVF250T PO
[2021-05-13] MEDS ORDERED: hydrALAZINE (APESOLINE) 20 MG/ML VIAL IV ONE ×2 (01:00→02:00)
[2021-05-13 01:03] LABS: BASOPHILS # (AUTO) 0.1 10^3/uL (0.0-0.1); BASOPHILS % (AUTO) 1 % (0-10); EOSINOPHILS # (AUTO) 0.3 10^3/uL (0.0-0.3); EOSINOPHILS % (AUTO) 3 % (0-10); HEMATOCRIT 43 % (35-52); HEMOGLOBIN 14.1 g/dL (11.5-16.0); LYMPHOCYTES # (AUTO) 1.5 10^3/uL (1.0-4.0); LYMPHOCYTES % (AUTO) 12 % (12-44); MEAN CORPUSCULAR HEMOGLOBIN 31 pg (25-34); MEAN CORPUSCULAR HGB CONC 33 g/dL (32-36); MEAN CORPUSCULAR VOLUME 95 fL (80-99); MEAN PLATELET VOLUME 10.4 fL (9.0-12.2); MONOCYTES # (AUTO) 0.6 10^3/uL (0.0-1.0); MONOCYTES % (AUTO) 5 % (0-12); NEUTROPHILS # (AUTO) 9.4 10^3/uL (1.8-7.8); NEUTROPHILS % (AUTO) 79 % (42-75); PLATELET COUNT 369 10^3/uL (130-400)
[2021-05-13 01:11] LABS: ALBUMIN 4.5 GM/DL (3.2-4.5)
[2021-05-13 01:12] LABS: POTASSIUM 3.9 MMOL/L (3.6-5.0)
[2021-05-13 01:13] LABS: CALCIUM 9.6 MG/DL (8.5-10.1)
[2021-05-13 01:14] LABS: TOTAL PROTEIN 7.4 GM/DL (6.4-8.2)
[2021-05-13 01:16] LABS: BILIRUBIN,TOTAL 0.4 MG/DL (0.1-1.0)
[2021-05-13 01:17] LABS: CREATININE SERUM 1.78 MG/DL (0.60-1.30)
[2021-05-13 01:20] LABS: MAGNESIUM 1.7 MG/DL (1.6-2.4)
[2021-05-13 01:40] LABS: TSH (THYROID ANALYZER) 2.67 UIU/ML (0.35-4.94)
--- NOTE | 2021-05-13 01:53 | ED Cardiac General ---
History of Present Illness General Chief Complaint: Cardiac/General Problems Stated Complaint: BLOOD PRESSURE 224/99,PT IS CANCER PT Nursing Triage Note: PT AMB TO RM 7 W REPORTS OF HTN AND SOA W EXERTION. PT REPORTS LIGHTHEADEDNESS EARLIER TODAY BUT NOT AT THIS TIME. DENIES PAIN, A&OX4. Source: patient, old records History of Present Illness Date Seen by Provider: May 13, 2021 Time Seen by Provider: 00:42 Initial Comments PT ARRIVES VIA POV FROM HOME C/O ELEVATED BLOOD PRESSURE FOR THE LAST FEW DAYS PT HAS BEEN CHECKING HER BLOOD PRESSURE 4-5 TIMES A DAY PT DENIES CHEST PAIN Allergies and Home Medications Allergies Coded Allergies: atorvastatin calcium (Unverified Allergy, Unknown, 07/27/16) cefdinir (Verified Allergy, Unknown, 09/01/17) codeine (Unverified Allergy, Unknown, 07/27/16) doxycycline (Verified Allergy, Unknown, 09/01/17) escitalopram oxalate (Unverified Allergy, Unknown, 07/27/16) niacin (Unverified Allergy, Unknown, 07/27/16) oxycodone (Verified Allergy, Unknown, 09/01/17) simvastatin (Unverified Allergy, Unknown, 07/27/16) tramadol (Unverified Allergy, Unknown, 07/27/16) acetaminophen (Verified Adverse Reaction, Mild, 10/17/19) TYLENOL WITH CODEINE MAKE PT ITCH. Patient Home Medication List Acetaminophen (Tylenol Extra Strength) 500 Mg Tablet, 500-1,000 MG PO Q6H PRN for PAIN-MILD (1-4), (Reported) Entered as Reported by: LINDA HESS on 10/07/201537 Amlodipine Besylate (Amlodipine Besylate) 10 Mg Tablet, 10 MG PO DAILY, (Reported) Entered as Reported by: AZALIA BELLAMY on 11/18/20 1318 Aspirin (Aspirin EC) 81 Mg Tablet.dr, 81 MG PO DAILY, (Reported) Entered as Reported by: LINDA HESS on 10/07/20 1538 Bisoprolol Fumarate (Bisoprolol Fumarate) 10 Mg Tablet, 10 MG PO DAILY, (Reported) Entered as Reported by: AZALIA BELLAMY on 11/18/20 1318 Clopidogrel Bisulfate (Clopidogrel) 75 Mg Tablet, 75 MG PO DAILY, (Reported) Entered as Reported by: LINDA HESS on 10/07/20 1538 Doxazosin Mesylate (Doxazosin Mesylate) 8 Mg Tablet, 8 MG PO BID, (Reported) Entered as Reported by: LINDA HESS on 10/07/20 1538 Furosemide (Furosemide) 20 Mg Tablet, 20 MG PO DAILY, (Reported) Entered as Reported by: AZALIA BELLAMY on 11/18/20 1318 Gabapentin (Neurontin) 300 Mg Capsule, 300 MG PO 0800,1500,2200, (Reported) Entered as Reported by: LINDA HESS on 10/07/20 1538 Glimepiride (Glimepiride) 4 Mg Tablet, 4 MG PO BID, (Reported) Entered as Reported by: MAIK SEGOVIA on 10/17/19 0854 Isosorbide Mononitrate (Isosorbide Mononitrate ER) 120 Mg Tab.er.24h, 120 MG PO DAILY, (Reported) Entered as Reported by: TERESA BATES on 10/04/18 0911 Isosorbide Mononitrate (Isosorbide Mononitrate ER) 60 Mg Tab, 60 MG PO DAILY Prescribed by: ABHIJEET NARAYAN on 01/11/21 2017 Losartan Potassium (Losartan Potassium) 100 Mg Tablet, 100 MG PO DAILY, (Reported) Entered as Reported by: TERESA BATES on 10/04/18 09 Pantoprazole Sodium (Pantoprazole Sodium) 40 Mg Tablet.dr, 40 MG PO DAILY, (Reported) Entered as Reported by: TERESA BATES on 10/04/18 09 Past Sicnhij-Iuajnv-Rzrsdn Hx Patient Social History Tobacco Use?: No Use of E-Cig and/or Vaping dev: No Substance use?: No Alcohol Use?: No Immunizations Up To Date Tetanus Booster (TDap): Less than 5yrs PED Vaccines UTD: No Influenza Vaccine Up-to-Date: No; Not Current First/Initial COVID19 Vaccinat: 09/02/2020 Second COVID19 Vaccination Willis: 09/26/2020 COVID19 Vaccine Pit Supervisor: GERRY Seasonal Allergies Seasonal Allergies: No Past Medical History Surgery/Hospitalization HX: CARDIAC CATHS--STENTS X 4 IN HEART, LEFT RENAL ARTERY STENTS X 3, RIGHT RENAL ARTERY STENTS X 2, CHF, CKD, LEUKOCYTOSIS Surgeries: Yes Bladder Surgery, Coronary Stent, Gallbladder, Hysterectomy, Orthopedic, Tonsillectomy, Vascular Surgery Respiratory: Yes Sleep Apnea, COPD Currently Using CPAP: Yes Cardiac: Yes (CHF) Chronic Edema/Swelling, Coronary Artery Disease, High Cholesterol, Hypertension Neurological: Yes Neuropathy Reproductive Disorders: No Female Reproductive Disorders: Denies Sexually Transmitted Disease: No HIV/AIDS: No Genitourinary: Yes (CHRONIC INCONTINENCE; RENAL ARTERY STENOSIS) Renal Failure Gastrointestinal: Yes Chronic Diarrhea, Polyps Musculoskeletal: Yes (, CERVICAL STENOSIS) Degenerate Disk Disease, Fibromyalgia Endocrine: Yes (history of thyroid nodules) Adrenal Disease, Diabetes, Non-Insulin dep HEENT: Yes Loss of Vision: Bilateral Hearing Impairment: Hard of Hearing Psychosocial: No Integumentary: No Blood Disorders: Yes (ANEMIA; MYELOPROLIFERATIVE DISORDER) Adverse Reaction/Blood Tranf: No Family Medical History Heart Disease, Cancer, CAD Over 55 Years Old, Stroke Non-contributory Physical Exam Vital Signs Vital Signs - First Documented 05/13/21 00:30 Temp 36.8 Pulse 75 Resp 20 B/P (MAP) 233/97 (142) Pulse Ox 96 O2 Delivery Room Air Capillary Refill : Less Than 3 Seconds Height, Weight, BMI Height: 5'2.00" Weight: 166lbs. 6.0oz. [id number]; 29.00 BMI Method:Stated Progress/Results/Core Measures Results/Orders Lab Results Laboratory Tests Test 05/13/21 00:40 Range/Units White Blood Count 12.0 H 4.3-11.0 10^3/uL Red Blood Count 4.54 3.80-5.11 10^6/uL Hemoglobin 14.1 11.5-16.0 g/dL Hematocrit 43 35-52 % Mean Corpuscular Volume 95 80-99 fL Mean Corpuscular Hemoglobin 31 25-34 pg Mean Corpuscular Hemoglobin Concent 33 32-36 g/dL Red Cell Distribution Width 14.2 10.0-14.5 % Platelet Count 369 130-400 10^3/uL Mean Platelet Volume 10.4 9.0-12.2 fL Immature Granulocyte % (Auto) 1 % Neutrophils (%) (Auto) 79 H 42-75 % Lymphocytes (%) (Auto) 12 12-44 % Monocytes (%) (Auto) 5 0-12 % Eosinophils (%) (Auto) 3 0-10 % Basophils (%) (Auto) 1 0-10 % Neutrophils # (Auto) 9.4 H 1.8-7.8 10^3/uL Lymphocytes # (Auto) 1.5 1.0-4.0 10^3/uL Monocytes # (Auto) 0.6 0.0-1.0 10^3/uL Eosinophils # (Auto) 0.3 0.0-0.3 10^3/uL Basophils # (Auto) 0.1 0.0-0.1 10^3/uL Immature Granulocyte # (Auto) 0.1 0.0-0.1 10^3/uL Sodium Level 141 135-145 MMOL/L Potassium Level 3.9 3.6-5.0 MMOL/L Chloride Level 107 98-107 MMOL/L Carbon Dioxide Level 20 L 21-32 MMOL/L Anion Gap 14 5-14 MMOL/L Blood Urea Nitrogen 26 H 7-18 MG/DL Creatinine 1.78 H 0.60-1.30 MG/DL Estimat Glomerular Filtration Rate 28 BUN/Creatinine Ratio 15 Glucose Level 244 H 70-105 MG/DL Calcium Level 9.6 8.5-10.1 MG/DL Corrected Calcium 9.2 8.5-10.1 MG/DL Magnesium Level 1.7 1.6-2.4 MG/DL Total Bilirubin 0.4 0.1-1.0 MG/DL Aspartate Amino Transf (AST/SGOT) 18 5-34 U/L Alanine Aminotransferase (ALT/SGPT) 12 0-55 U/L Alkaline Phosphatase 98 40-136 U/L Troponin I 0.028 <0.028 NG/ML B-Type Natriuretic Peptide 260.3 H <100.0 PG/ML Total Protein 7.4 6.4-8.2 GM/DL Albumin 4.5 3.2-4.5 GM/DL TSH [place] Testing 2.67 0.35-4.94 UIU/ML My Orders Orders - DARIA HAGAN DO Ed Iv/Invasive Line Start (05/13/21 00:50) Ekg Tracing (05/13/21 00:50) Monitor-Rhythm Ecg Trace Only (05/13/21 00:50) BNP (05/13/21 00:50) Cbc With Automated Diff (05/13/21 00:50) Comprehensive Metabolic Panel (05/13/21 00:50) Magnesium (05/13/21 00:50) Troponin I (05/13/21 00:50) Chest 1 View, Ap/Pa Only (05/13/21 00:50) Hydralazine Injection (Apresoline Inject (05/13/21 01:00) Thyroid Analyzer (05/13/21 00:56) Nitroglycerin Ointment (Nitrobid Ointme (05/13/21 02:00) Hydralazine Injection (Apresoline Inject (05/13/21 02:00) Medications Given in ED Current Medications Medications Dose Ordered Sig/Syl Route Start Time Stop Time Status Last Admin Dose Admin Hydralazine HCl 10 mg ONCE ONCE IV 05/13/21 01:00 05/13/21 01:01 DC 05/13/21 00:57 10 MG Hydralazine HCl 10 mg ONCE ONCE IV 05/13/21 02:00 05/13/21 02:01 DC 05/13/21 02:03 10 MG Nitroglycerin 1 inch ONCE ONCE TOP 05/13/21 02:00 05/13/21 02:01 DC 05/13/21 02:03 1 INCH Vital Signs/I&O 05/13/21 00:30 Temp 36.8 Pulse 75 Resp 20 B/P (MAP) 233/97 (142) Pulse Ox 96 O2 Delivery Room Air Blood Pressure Mean: 142 Progress Progress Note : Progress Note GIVEN HYDRALAZINE AND NITROPASTE BP DOWN TO 140'S/70'S PRIOR TO DISMISSAL Initial ECG Impression Date: May 13, 2021 Initial ECG Impression Time: 00:51 Initial ECG Rate: 75 Initial ECG Rhythm: Normal Sinus Initial ECG Comparisson: Unchanged Diagnostic Imaging Comments CXR--NO ACUTE PROCESS, PENDING RADIOLOGIST REVIEW Reviewed: Reviewed by Me Departure Impression Primary Impression: Labile hypertension Disposition: 01 HOME, SELF-CARE Condition: Improved Departure-Patient Inst. Decision time for Depature: 02:51 Referrals: RAJWINDER CARVAJAL MD (PCP/Family) Primary Care Physician CHRISTY ESQUIVEL MD FACP FACC CCDS Patient Instructions: DASH Diet, High Blood Pressure (DC) Add. Discharge Instructions: TAKE YOUR MEDICATIONS PRESCRIBED FOLLOW UP WITH DR. ESQUIVEL THIS WEEK FOR FURTHER CARE All discharge instructions reviewed with patient and/or family. Voiced understanding. DARIA HAGAN DO May 13, 2021 01:53
[2021-05-13] MEDS ORDERED: NITROGLYCERIN 2% OINT 1 GM UNIT DOSE PACKET TOP ONE (02:00)
[2021-05-13 03:15] VITALS: BP 156/88
--- NOTE | 2021-05-13 06:09 | Diagnostic Imaging Report ---
INDICATION: Hypertension, dyspnea on exertion. TECHNIQUE: Single view chest 1:09 AM. CORRELATION STUDY: 01/20/2021 FINDINGS: The heart size, mediastinal configuration and pulmonary vascularity are within normal limits. The lungs are clear with no consolidating infiltrate. There is no significant effusion or pneumothorax. Partial visualization of cervical spinal fixation hardware. IMPRESSION: 1. Negative for acute abnormality of the chest. Dictated by: Dictated on workstation # [id number]
== END 2021-05-13 03:10 | disposition home or self-care (01) ==
LOC: EDUNIT# 23:59 → ER 05-13 00:02
DX: I11.0 Hypertensive heart disease with heart failure (principal); I50.9 Heart failure, unspecified; G47.30 Sleep apnea, unspecified; J44.9 Chronic obstructive pulmonary disease, unspecified; I25.10 Atherosclerotic heart disease of native coronary artery without angina pectoris; E11.9 Type 2 diabetes mellitus without complications; Z79.82 Long term (current) use of aspirin; Z79.01 Long term (current) use of anticoagulants; Z79.899 Other long term (current) drug therapy
CPT/HCPCS: 36415; 71045; 80053; 83735; 83880; 84443; 84484; 85025; 93005; 93041

== ENCOUNTER 2021-05-15 00:25 | Emergency (ER) | payer MEDICARE, OTHER ==
[2021-05-15 01:43] LABS: BASOPHILS # (AUTO) 0.1 10^3/uL (0.0-0.1); BASOPHILS % (AUTO) 1 % (0-10); EOSINOPHILS # (AUTO) 0.4 10^3/uL (0.0-0.3); EOSINOPHILS % (AUTO) 3 % (0-10); HEMATOCRIT 39 % (35-52); HEMOGLOBIN 12.7 g/dL (11.5-16.0); LYMPHOCYTES # (AUTO) 1.3 10^3/uL (1.0-4.0); LYMPHOCYTES % (AUTO) 11 % (12-44); MEAN CORPUSCULAR HEMOGLOBIN 31 pg (25-34); MEAN CORPUSCULAR HGB CONC 32 g/dL (32-36); MEAN CORPUSCULAR VOLUME 96 fL (80-99); MEAN PLATELET VOLUME 9.9 fL (9.0-12.2); MONOCYTES # (AUTO) 0.6 10^3/uL (0.0-1.0); MONOCYTES % (AUTO) 5 % (0-12); NEUTROPHILS # (AUTO) 9.3 10^3/uL (1.8-7.8); NEUTROPHILS % (AUTO) 79 % (42-75); PLATELET COUNT 345 10^3/uL (130-400); WHITE BLOOD COUNT 11.8 10^3/uL (4.3-11.0)
[2021-05-15] MEDS: NITROGLYCERIN 0.4 MG SL TABS BTL 25'S SL PRN ×2 (01:48→02:02)
[2021-05-15 01:54] LABS: ALBUMIN 4.1 GM/DL (3.2-4.5)
[2021-05-15 01:55] LABS: CALCIUM 9.4 MG/DL (8.5-10.1); CHLORIDE 107 MMOL/L (98-107); POTASSIUM 3.8 MMOL/L (3.6-5.0); SODIUM 143 MMOL/L (135-145)
[2021-05-15 01:57] LABS: GLUCOSE 189 MG/DL (70-105); TOTAL PROTEIN 6.6 GM/DL (6.4-8.2)
[2021-05-15 01:58] LABS: BILIRUBIN,TOTAL 0.4 MG/DL (0.1-1.0); CARBON DIOXIDE 21 MMOL/L (21-32)
[2021-05-15 02:00] LABS: ALKALINE PHOSPHATASE 83 U/L (40-136); CREATININE SERUM 1.83 MG/DL (0.60-1.30); GFR ESTIMATED 27
[2021-05-15 02:01] LABS: BUN/CREATININE RATIO 16
[2021-05-15 02:03] LABS: ALANINE AMINOTRANSFERASE 12 U/L (0-55); MAGNESIUM 1.8 MG/DL (1.6-2.4)
[2021-05-15] MEDS ORDERED: hydrALAZINE (APESOLINE) 20 MG/ML VIAL IV ONE (03:45)
--- NOTE | 2021-05-15 04:35 | ED Cardiac General ---
History of Present Illness General Chief Complaint: Cardiac/General Problems Stated Complaint: HIGH BLOOD PRESSURE 242/95 Nursing Triage Note: TO ED VIA POV AND AMBULATORY TO ROOM 3 WITH C/O HIGH BP. WAS SEEN IN THIS ER 05/13/21 FOR SAME COMPLAINT. Source: patient, old records Exam Limitations: no limitations History of Present Illness Date Seen by Provider: May 15, 2021 Time Seen by Provider: 01:05 Initial Comments This is a 76-year-old woman with labile hypertension presents to the emergency room with complaints of severe hypertension this evening with a measurement of 242/95. She reports compliance with her medications. She additionally took a total of doxazosin 12 mg today as her as needed medication for hypertension exacerbation. She has had intermittent chest pain which she describes as chron ic. Dr. Fernandes is her early childhood teacher. Dr. Carvajal is her primary care provider. Allergies and Home Medications Allergies Coded Allergies: atorvastatin calcium (Unverified Allergy, Unknown, 07/27/16) cefdinir (Verified Allergy, Unknown, 09/01/17) codeine (Unverified Allergy, Unknown, 07/27/16) doxycycline (Verified Allergy, Unknown, 09/01/17) escitalopram oxalate (Unverified Allergy, Unknown, 07/27/16) niacin (Unverified Allergy, Unknown, 07/27/16) oxycodone (Verified Allergy, Unknown, 09/01/17) simvastatin (Unverified Allergy, Unknown, 07/27/16) tramadol (Unverified Allergy, Unknown, 07/27/16) acetaminophen (Verified Adverse Reaction, Mild, 10/17/19) TYLENOL WITH CODEINE MAKE PT ITCH. Patient Home Medication List Home Medication List Reviewed: Yes Acetaminophen (Tylenol Extra Strength) 500 Mg Tablet, 500-1,000 MG PO Q6H PRN for PAIN-MILD (1-4), (Reported) Entered as Reported by: LINDA HESS on 10/07/20 1538 Amlodipine Besylate (Amlodipine Besylate) 10 Mg Tablet, 10 MG PO DAILY, (Reported) Entered as Reported by: AZALIA BELLAMY on 11/18/20 1318 Aspirin (Aspirin EC) 81 Mg Tablet.dr, 81 MG PO DAILY, (Reported) Entered as Reported by: LINDA HESS on 10/07/20 1538 Bisoprolol Fumarate (Bisoprolol Fumarate) 10 Mg Tablet, 10 MG PO DAILY, (Reported) Entered as Reported by: AZALIA BELLAMY on 11/18/20 1318 Clopidogrel Bisulfate (Clopidogrel) 75 Mg Tablet, 75 MG PO DAILY, (Reported) Entered as Reported by: LINDA HESS on 10/07/20 1538 Doxazosin Mesylate (Doxazosin Mesylate) 8 Mg Tablet, 8 MG PO BID, (Reported) Entered as Reported by: LINDA HESS on 10/07/20 153 Furosemide (Furosemide) 20 Mg Tablet, 20 MG PO DAILY, (Reported) Entered as Reported by: AZALIA BELLAMY on 11/18/20 1318 Gabapentin (Neurontin) 300 Mg Capsule, 300 MG PO 0800,1500,2200, (Reported) Entered as Reported by: LINDA HESS on 10/07/20 153 Glimepiride (Glimepiride) 4 Mg Tablet, 4 MG PO BID, (Reported) Entered as Reported by: MAIK SEGOVIA on 10/17/19 0854 Isosorbide Mononitrate (Isosorbide Mononitrate ER) 120 Mg Tab.er.24h, 120 MG PO DAILY, (Reported) Entered as Reported by: TERESA BATES on 10/04/18 09 Isosorbide Mononitrate (Isosorbide Mononitrate ER) 60 Mg Tab, 60 MG PO DAILY Prescribed by: ABHIJEET NARAYAN on 01/11/212016 Losartan Potassium (Losartan Potassium) 100 Mg Tablet, 100 MG PO DAILY, (Reported) Entered as Reported by: TERESA BATES on 10/04/18 09 Pantoprazole Sodium (Pantoprazole Sodium) 40 Mg Tablet.dr, 40 MG PO DAILY, (Reported) Entered as Reported by: TERESA BATES on 10/04/18 09 Review of Systems Review of Systems Constitutional: no symptoms reported EENTM: No Symptoms Reported Respiratory: No Symptoms Reported Cardiovascular: See HPI Gastrointestinal: No Symptoms Reported Genitourinary: No Symptoms Reported Musculoskeletal: other (Chronic back pain) Skin: no symptoms reported Psychiatric/Neurological: No Symptoms Reported Endocrine: No Symptoms Reported Hematologic/Lymphatic: No Symptoms Reported Past Fgyglvh-Wohnud-Rkizjm Hx Patient Social History Tobacco Use?: No Immunizations Up To Date Tetanus Booster (TDap): Less than 5yrs PED Vaccines UTD: No First/Initial COVID19 Vaccinat: 09/02/2020 Second COVID19 Vaccination Willis: 09/26/2020 Seasonal Allergies Seasonal Allergies: No Past Medical History Surgery/Hospitalization HX: CARDIAC CATHS--STENTS X 4 IN HEART, LEFT RENAL ARTERY STENTS X 3, RIGHT RENAL ARTERY STENTS X 2, CHF, CKD, LEUKOCYTOSIS Surgeries: Yes Bladder Surgery, Coronary Stent, Gallbladder, Hysterectomy, Orthopedic, Tonsillectomy, Vascular Surgery Respiratory: Yes Sleep Apnea, COPD Currently Using CPAP: Yes Cardiac: Yes (CHF) Chronic Edema/Swelling, Coronary Artery Disease, High Cholesterol, Hypertension, Peripheral Vascular (Renal artery stenosis) Neurological: Yes Neuropathy Reproductive Disorders: No Female Reproductive Disorders: Denies Sexually Transmitted Disease: No HIV/AIDS: No Genitourinary: Yes (CHRONIC INCONTINENCE; RENAL ARTERY STENOSIS) Renal Failure Gastrointestinal: Yes Chronic Diarrhea, Polyps Musculoskeletal: Yes (, CERVICAL STENOSIS) Degenerate Disk Disease, Fibromyalgia Endocrine: Yes (history of thyroid nodules) Adrenal Disease, Diabetes, Non-Insulin dep HEENT: Yes Loss of Vision: Bilateral Hearing Impairment: Hard of Hearing Psychosocial: No Integumentary: No Blood Disorders: Yes (ANEMIA; MYELOPROLIFERATIVE DISORDER) Adverse Reaction/Blood Tranf: No Family Medical History Heart Disease, Cancer, CAD Over 55 Years Old, Stroke Non-contributory Physical Exam Vital Signs Vital Signs - First Documented 05/15/21 00:33 Temp 36.6 Pulse 82 Resp 20 B/P (MAP) 239/107 (151) Pulse Ox 95 O2 Delivery Room Air Capillary Refill : Less Than 3 Seconds Height, Weight, BMI Height: 5'2.00" Weight: 166lbs. 6.0oz. [id number]; 29.00 BMI Method:Stated General Appearance: No Apparent Distress, WD/WN HEENT: PERRL/EOMI, Normal ENT Inspection Neck: Normal Inspection; No JVD Respiratory: Lungs Clear, Normal Breath Sounds, No Accessory Muscle Use Cardiovascular: Regular Rate, Rhythm, No Murmur, Other (Slight lower extremity edema) Gastrointestinal: Normal Bowel Sounds, Non Tender, Soft Extremity: Non Tender, Pedal Edema (Slight lower extremity edema) Neurologic/Psychiatric: Alert, Oriented x3, No Motor/Sensory Deficits, Normal Mood/Affect, instrumentation engineer II-XII Norm as Tested Skin: Normal Color, Warm/Dry Progress/Results/Core Measures Results/Orders Lab Results Laboratory Tests Test 05/15/21 01:35 Range/Units White Blood Count 11.8 H 4.3-11.0 10^3/uL Red Blood Count 4.11 3.80-5.11 10^6/uL Hemoglobin 12.7 11.5-16.0 g/dL Hematocrit 39 35-52 % Mean Corpuscular Volume 96 80-99 fL Mean Corpuscular Hemoglobin 31 25-34 pg Mean Corpuscular Hemoglobin Concent 32 32-36 g/dL Red Cell Distribution Width 14.2 10.0-14.5 % Platelet Count 345 130-400 10^3/uL Mean Platelet Volume 9.9 9.0-12.2 fL Immature Granulocyte % (Auto) 1 % Neutrophils (%) (Auto) 79 H 42-75 % Lymphocytes (%) (Auto) 11 L 12-44 % Monocytes (%) (Auto) 5 0-12 % Eosinophils (%) (Auto) 3 0-10 % Basophils (%) (Auto) 1 0-10 % Neutrophils # (Auto) 9.3 H 1.8-7.8 10^3/uL Lymphocytes # (Auto) 1.3 1.0-4.0 10^3/uL Monocytes # (Auto) 0.6 0.0-1.0 10^3/uL Eosinophils # (Auto) 0.4 H 0.0-0.3 10^3/uL Basophils # (Auto) 0.1 0.0-0.1 10^3/uL Immature Granulocyte # (Auto) 0.1 0.0-0.1 10^3/uL Sodium Level 143 135-145 MMOL/L Potassium Level 3.8 3.6-5.0 MMOL/L Chloride Level 107 98-107 MMOL/L Carbon Dioxide Level 21 21-32 MMOL/L Anion Gap 15 H 5-14 MMOL/L Blood Urea Nitrogen 29 H 7-18 MG/DL Creatinine 1.83 H 0.60-1.30 MG/DL Estimat Glomerular Filtration Rate 27 BUN/Creatinine Ratio 16 Glucose Level 189 H 70-105 MG/DL Calcium Level 9.4 8.5-10.1 MG/DL Corrected Calcium 9.3 8.5-10.1 MG/DL Magnesium Level 1.8 1.6-2.4 MG/DL Total Bilirubin 0.4 0.1-1.0 MG/DL Aspartate Amino Transf (AST/SGOT) 20 5-34 U/L Alanine Aminotransferase (ALT/SGPT) 12 0-55 U/L Alkaline Phosphatase 83 40-136 U/L Myoglobin 122.8 H 10.0-92.0 NG/ML Troponin I < 0.028 <0.028 NG/ML B-Type Natriuretic Peptide 330.2 H <100.0 PG/ML Total Protein 6.6 6.4-8.2 GM/DL Albumin 4.1 3.2-4.5 GM/DL My Orders Orders - BRADEN GOMES MD Cbc With Automated Diff (05/15/21 01:15) Magnesium (05/15/21 01:15) Chest 1 View, Ap/Pa Only (05/15/21 01:15) Ekg Tracing (05/15/21 01:15) Comprehensive Metabolic Panel (05/15/21 01:15) Myoglobin Serum (05/15/21 01:15) O2 (05/15/21 01:15) Monitor-Rhythm Ecg Trace Only (05/15/21 01:15) Ed Iv/Invasive Line Start (05/15/21 01:15) Nitroglycerin 0.4 Mg Btl 25's (Nitrostat (05/15/21 01:15) Troponin I (05/15/21 01:35) BNP (05/15/21 02:55) Hydralazine Injection (Apresoline Inject (05/15/21 03:45) Medications Given in ED Current Medications Medications Dose Ordered Sig/Syl Route Start Time Stop Time Status Last Admin Dose Admin Hydralazine HCl 10 mg ONCE ONCE IV 05/15/21 03:45 05/15/21 03:46 DC 05/15/21 03:41 10 MG Nitroglycerin 0.4 mg UD PRN SL 05/15/21 01:15 05/15/21 04:53 DC 05/15/21 02:02 0.4 MG Vital Signs/I&O 05/15/21 05/15/21 00:33 04:44 Temp 36.6 36.6 Pulse 82 71 Resp 20 20 B/P (MAP) 239/107 (151) 171/70 Pulse Ox 95 95 O2 Delivery Room Air Room Air Blood Pressure Mean: 151 Progress Progress Note : Progress Note Patient did respond to nitroglycerin. It improved her chest discomfort. She was given an additional dose of her isosorbide mononitrate 120 mg ER. She had modest improvement in her severe hypertension. This was followed by hydralazine which was more effective in reducing her blood pressure. We discussed plan for further evaluation which would include keeping her appointment with Dr. Carvajal today and discussing continuing with the increased dose of isosorbide mononitrate versus adding hydralazine. We also discussed the possibility of repeating a renal artery imaging. This could potentially be done with ultrasound as should not be receiving contrast dye with her chronic kidney disease. See discharge instructions for further discussion. Initial ECG Impression Date: May 15, 2021 Initial ECG Impression Time: 02:00 Initial ECG Rate: 64 Initial ECG Rhythm: Normal Sinus Comment Sinus rhythm with no ST elevation or depression. LVH noted. No abnormal intervals or axis deviation. Diagnostic Imaging Diagonstic Imaging: Xray Plain Films/CT/US/NM/MRI: chest Comments Chest x-ray viewed by me and report reviewed. See report below: NAME: FREDO [facility] REC#: [id number] PT STATUS: DEP ER : 1945 PHYSICIAN: BRADEN GOMES MD ADMIT DATE: 05/15/21/ER Signed Date of Exam:05/15/21 CHEST 1 VIEW, AP/PA ONLY Indication: Chest pain Portable chest 1:52 AM Heart size and pulmonary vascularity are normal. Lungs are clear. There are no effusions or pneumothoraces. IMPRESSION: Negative chest Dictated by: Dictated on workstation # [id number] Dict: 05/15/214 Trans: 05/15/21453 TCB [id number] Interpreted by: ANDREA WESTON MD Electronically signed by: ANDREA WESTON MD 05/15/21453 Departure Impression Primary Impression: Labile hypertension Additional Impression: Chest pain Qualified Codes: R07.9 - Chest pain, unspecified Disposition: 01 HOME, SELF-CARE Condition: Improved Departure-Patient Inst. Decision time for Depature: 04:31 Referrals: RAJWINDER CARVAJAL MD (PCP/Family) Primary Care Physician Patient Instructions: High Blood Pressure in Adults Add. Discharge Instructions: Increase the isosorbide mononitrate ER to 120 mg twice daily. Keep your appointment with Dr. Carvajal this afternoon and discuss further management strategies for your episodes of high blood pressure. While in the ER you seemed to respond well to hydralazine. Discuss potentially adding hydralazine to your treatment plan as either a substitute for one of the other medications or an additional medication. Also discuss the potential for reevaluating your renal artery stenosis which may be performed by obtaining an outpatient renal artery Doppler ultrasound study. Also schedule a follow-up with Dr. Fernandes. Call with questions or concerns. Return to the ER if you have worsening symptoms. All discharge instructions reviewed with patient and/or family. Voiced understanding. Copy Copies To 1: CHRISTY FERNANDES MD FACP FAC CCDS Copies To 2: RAJWINDER CARVAJAL MD, JOSHUA T MD May 15, 2021 04:34
[2021-05-15 04:44] VITALS: BP 171/70
--- NOTE | 2021-05-15 04:56 | Diagnostic Imaging Report ---
Indication: Chest pain Portable chest 1:52 AM Heart size and pulmonary vascularity are normal. Lungs are clear. There are no effusions or pneumothoraces. IMPRESSION: Negative chest Dictated by: Dictated on workstation # [id number]
== END 2021-05-15 04:51 | disposition home or self-care (01) ==
LOC: EDUNIT# 00:25 → ER 00:28
DX: I11.0 Hypertensive heart disease with heart failure (principal); I50.9 Heart failure, unspecified; R07.9 Chest pain, unspecified; G47.30 Sleep apnea, unspecified; J44.9 Chronic obstructive pulmonary disease, unspecified; I25.10 Atherosclerotic heart disease of native coronary artery without angina pectoris; E11.9 Type 2 diabetes mellitus without complications; Z79.82 Long term (current) use of aspirin; Z79.01 Long term (current) use of anticoagulants; Z79.899 Other long term (current) drug therapy
CPT/HCPCS: 36415; 71045; 80053; 83735; 83874; 83880; 84484; 85025; 93005; 93041; 96374

== ENCOUNTER 2021-09-22 02:45 | Observation (INO) | payer MEDICARE, OTHER ==
[2021-09-22] VITALS (8 sets, daily range): BP systolic 150–208; BP diastolic 75–102
[~2021-09-22] VITALS: Ht 157 cm; Wt 75.2 kg
[~2021-09-22 02:45] MED LIST changes: -LEVO250T46 PO; +LVF250T PO
[2021-09-22] MEDS ORDERED: ASPIRIN 81 MG CHEW (CHILDREN'S ASA) PO ONE (03:15)
[2021-09-22] MEDS ORDERED: cloNIDine 0.1 MG (CATAPRES) TAB PO ONE (03:15)
[2021-09-22] MEDS ORDERED: NITROGLYCERIN 0.4 MG SL TABS BTL 25'S SL PRN (03:15)
[2021-09-22 03:27] LABS: BASOPHILS # (AUTO) 0.1 10^3/uL (0.0-0.1); BASOPHILS % (AUTO) 0 % (0-10); EOSINOPHILS # (AUTO) 0.3 10^3/uL (0.0-0.3); EOSINOPHILS % (AUTO) 2 % (0-10); HEMATOCRIT 42 % (35-52); HEMOGLOBIN 13.9 g/dL (11.5-16.0); LYMPHOCYTES # (AUTO) 1.2 10^3/uL (1.0-4.0); LYMPHOCYTES % (AUTO) 9 % (12-44); MEAN CORPUSCULAR HEMOGLOBIN 31 pg (25-34); MEAN CORPUSCULAR HGB CONC 33 g/dL (32-36); MEAN CORPUSCULAR VOLUME 94 fL (80-99); MEAN PLATELET VOLUME 10.2 fL (9.0-12.2); MONOCYTES # (AUTO) 0.7 10^3/uL (0.0-1.0); MONOCYTES % (AUTO) 5 % (0-12); NEUTROPHILS # (AUTO) 11.4 10^3/uL (1.8-7.8); NEUTROPHILS % (AUTO) 83 % (42-75); PLATELET COUNT 371 10^3/uL (130-400); WHITE BLOOD COUNT 13.7 10^3/uL (4.3-11.0)
[2021-09-22 03:31] LABS: INR 0.9 (0.8-1.4); PROTHROMBIN TIME PATIENT 12.7 SEC (12.2-14.7)
--- NOTE | 2021-09-22 03:38 | ED Chest Pain ---
General Chief Complaint: Chest Pain Stated Complaint: CP;HIGH BP Source: patient Exam Limitations: no limitations (ABHIJEET SAMUELS) History of Present Illness Date Seen by Provider: Sep 22, 2021 Time Seen by Provider: 02:57 Initial Comments Patient to the ER by private conveyance with her and chief complaint that she be checking her blood pressure which was elevated tonight as she is want to do several times a day. She is having some chest pain lasting for a few seconds to about a minute about an hour prior to arrival. She had some chest pains prior to that by about an hour or 2. She took 2 doses of nitroglycerin on route to the ER. She is chest pain-free at the time of arrival. She has a history of coronary artery disease with stents known to Dr. Fernandes and now follow-up with a doctor Desirae in [place] for cardiology. She has had problems with difficult to control high blood pressure on a beta-tan, ARB, Imdur, Lasix and doxazosin. She had ultrasound of her renal arteries which was normal. Her blood pressure has been up to 240/130s tonight. She takes daily weights twice a day and states she has had no changes in the past week. No increasing in her swelling of her legs. Patient apparently has a chronic history of intermittent, sharp chest pains in the upper chest without exacerbating or relieving factors that are repetitive lasting seconds to minutes. They are not thought to be related to acute coronary syndrome. She had a cardiac catheterization September 2019 about 2 years ago with 70% in-stent restenosis of the LAD status post balloon angioplasty. Circumflex had 50% stenosis in its proximal to midportion and 70% stenosis in the mid to distal portion. Patent stent in the right coronary artery. With mild to moderate diffuse disease. Echocardiogram March 2020 with an EF of 55 to 60% grade 1 diastolic dysfunction. She also has diabetes, stage IV kidney disease followed by Dr. Ramirez and no evidence of a AAA. Multinodular thyroid goiter followed by oncology. Hyperlipidemia with intolerance to statins. COPD, diabetes. (ABHIJEET SAMUELS) Allergies and Home Medications Allergies Coded Allergies: atorvastatin calcium (Unverified Allergy, Unknown, 07/27/16) cefdinir (Verified Allergy, Unknown, 09/01/17) codeine (Unverified Allergy, Unknown, 07/27/16) doxycycline (Verified Allergy, Unknown, 09/01/17) escitalopram oxalate (Unverified Allergy, Unknown, 07/27/16) niacin (Unverified Allergy, Unknown, 07/27/16) oxycodone (Verified Allergy, Unknown, 09/01/17) simvastatin (Unverified Allergy, Unknown, 07/27/16) tramadol (Unverified Allergy, Unknown, 07/27/16) acetaminophen (Verified Adverse Reaction, Mild, 10/17/19) TYLENOL WITH CODEINE MAKE PT ITCH. Patient Home Medication List Home Medication List Reviewed: Yes (ABHIJEET SAMUELS) Home Medication List Reviewed: Yes (CARMINE TIPTON MD) Acetaminophen (Tylenol Extra Strength) 500 Mg Tablet, 500-1,000 MG PO Q6H PRN for PAIN-MILD (1-4), (Reported) Entered as Reported by: LINDA HESS on 10/07/201537 Last Action: Reviewed Albuterol Sulfate (Albuterol Sulfate) 2.5 Mg/0.5 Ml Vial.neb, 2.5 MG INH Q6H PRN for SHORTNESS OF BREATH, (Reported) Entered as Reported by: LINDA HESS on 09/22/21 102 Last Action: Reviewed Aspirin (Aspirin EC) 81 Mg Tablet.dr, 81 MG PO DAILY, (Reported) Entered as Reported by: LINDA HESS on 10/07/201537 Last Action: Reviewed Bisoprolol Fumarate (Bisoprolol Fumarate) 10 Mg Tablet, 10 MG PO DAILY, (Reported) Entered as Reported by: AZALIA BELLMAY on 11/18/20 131 Last Action: Reviewed Clopidogrel Bisulfate (Clopidogrel) 75 Mg Tablet, 75 MG PO DAILY, (Reported) Entered as Reported by: LINDA HESS on 10/07/201537 Last Action: Reviewed Doxazosin Mesylate (Doxazosin Mesylate) 4 Mg Tablet, 8 MG PO BID, (Reported) Entered as Reported by: LINDA HESS on 09/22/21 1020 Last Action: Reviewed Furosemide (Furosemide) 20 Mg Tablet, 20 MG PO DAILY, (Reported) Entered as Reported by: AZALIA BELLAMY on 11/18/20 1318 Last Action: Reviewed Gabapentin (Neurontin) 300 Mg Capsule, 300 MG PO TID, (Reported) Entered as Reported by: LINDA HESS on 10/07/20 1538 Last Action: Reviewed Glimepiride (Glimepiride) 4 Mg Tablet, 4 MG PO BID, (Reported) Entered as Reported by: MAIK SEGOVIA on 10/17/19 0854 Last Action: Reviewed Ipratropium [place] (Ipratropium [place]) 0.2 Mg/1 Ml Solution, 0.2 MG IH Q8H PRN for SHORTNESS OF BREATH, (Reported) Entered as Reported by: LINDA HESS on 09/22/21 1028 Last Action: Reviewed Isosorbide Mononitrate (Isosorbide Mononitrate ER) 120 Mg Tab.er.24h, 120 MG PO BID, (Reported) Entered as Reported by: TERESA BATES on 10/04/1811 Last Action: Reviewed Losartan Potassium (Losartan Potassium) 50 Mg Tablet, 50 MG PO BID, (Reported) Entered as Reported by: ILNDA HESS on 09/22/21 1020 Last Action: Reviewed Pantoprazole Sodium (Pantoprazole Sodium) 40 Mg Tablet.dr, 40 MG PO DAILY, (Reported) Entered as Reported by: TERESA BATES on 10/04/18911 Last Action: Reviewed Discontinued Medications Amlodipine Besylate (Amlodipine Besylate) 10 Mg Tablet, 10 MG PO DAILY, (Reported) Discontinued Reason: No Longer Taking Entered as Reported by: AZALIA BELLAMY on 11/18/20 1318 Last Action: Discontinued Doxazosin Mesylate (Doxazosin Mesylate) 8 Mg Tablet, 8 MG PO BID, (Reported) Discontinued Reason: Duplicate Order Entered as Reported by: LINDA HESS on 10/07/201537 Last Action: Discontinued Isosorbide Mononitrate (Isosorbide Mononitrate ER) 60 Mg Tab, 60 MG PO DAILY Discontinued Reason: No Longer Taking Prescribed by: ABHIJEET SAMUELS on 01/11/212016 Last Action: Discontinued Losartan Potassium (Losartan Potassium) 100 Mg Tablet, 100 MG PO DAILY, (Reported) Discontinued Reason: Duplicate Order Entered as Reported by: TERESA BATES on 10/04/18911 Last Action: Discontinued Review of Systems Review of Systems Constitutional: No chills, No diaphoresis EENTM: No Blurred Vision, No Double Vision Respiratory: Denies Cough, Denies Shortness of Air Cardiovascular: See HPI, Chest Pain; Denies Lightheadedness Gastrointestinal: Denies Constipated, Denies Diarrhea, Denies Nausea Genitourinary: Denies Burning, Denies Discharge Musculoskeletal: No back pain, No joint pain Skin: No pruritus, No rash Psychiatric/Neurological: Denies Headache, Denies Numbness Hematologic/Lymphatic: Denies Anemia, Denies Blood Clots (ABHIJEET SAMUELS) All Other Systems Reviewed Negative Unless Noted: Yes (ABHIJEET SAMUELS) Past Scmfupe-Msquew-Nccghb Hx Patient Social History Tobacco Use?: No Use of E-Cig and/or Vaping dev: No Substance use?: No (ABHIJEET SAMUELS) Immunizations Up To Date Tetanus Booster (TDap): Less than 5yrs PED Vaccines UTD: No First/Initial COVID19 Vaccinat: 09/02/2020 Second COVID19 Vaccination Willis: 09/26/2020 (ABHIJEET SAMUELS) Seasonal Allergies Seasonal Allergies: No (ABHIJEET SAMUELS) Past Medical History Surgery/Hospitalization HX: CARDIAC CATHS--STENTS X 4 IN HEART, LEFT RENAL ARTERY STENTS X 3, RIGHT RENAL ARTERY STENTS X 2, CHF, CKD, LEUKOCYTOSIS Surgeries: Yes Bladder Surgery, Coronary Stent, Gallbladder, Hysterectomy, Orthopedic, Tonsillectomy, Vascular Surgery Respiratory: Yes Sleep Apnea, COPD Currently Using CPAP: Yes Cardiac: Yes (CHF) Chronic Edema/Swelling, Coronary Artery Disease, High Cholesterol, Hypertension, Peripheral Vascular Neurological: Yes Neuropathy Reproductive Disorders: No Female Reproductive Disorders: Denies Sexually Transmitted Disease: No HIV/AIDS: No Genitourinary: Yes (CHRONIC INCONTINENCE; RENAL ARTERY STENOSIS) Renal Failure Gastrointestinal: Yes Chronic Diarrhea, Polyps Musculoskeletal: Yes (, CERVICAL STENOSIS) Degenerate Disk Disease, Fibromyalgia Endocrine: Yes (history of thyroid nodules) Adrenal Disease, Diabetes, Non-Insulin dep HEENT: Yes Loss of Vision: Bilateral Hearing Impairment: Hard of Hearing Psychosocial: No Integumentary: No Blood Disorders: Yes (ANEMIA; MYELOPROLIFERATIVE DISORDER) Adverse Reaction/Blood Tranf: No (ABHIJEET SAMUELS) Family Medical History Heart Disease, Cancer, CAD Over 55 Years Old, Stroke Non-contributory (ABHIJEET SAMUELS) Physical Exam Vital Signs Vital Signs - First Documented 09/22/21 02:54 Temp 37.0 Pulse 77 Resp 19 B/P (MAP) 247/107 (153) Pulse Ox 94 O2 Delivery Room Air (CARMINE TIPTON MD) Vital Signs Capillary Refill : (ABHIJEET SAMUELS) Height, Weight, BMI Height: 5'2.00" Weight: 166lbs. 6.0oz. 75.104498ks; 29.00 BMI Method:Stated General Appearance: No Apparent Distress, WD/WN, Chronically ill HEENT: PERRL/EOMI, Pharynx Normal, Moist Mucous Membranes Neck: Full Range of Motion, Normal Inspection, Non Tender Respiratory: Chest Non Tender, Lungs Clear, Normal Breath Sounds, No Accessory Muscle Use, No Respiratory Distress Cardiovascular: Regular Rate, Rhythm, No Edema, Normal Peripheral Pulses Gastrointestinal: Normal Bowel Sounds, No Organomegaly, Non Tender, Soft Extremity: Normal Capillary Refill, Normal Inspection, No Pedal Edema Neurologic/Psychiatric: Alert, Oriented x3, No Motor/Sensory Deficits Skin: Normal Color, Warm/Dry (ABHIJEET SAMUELS) Progress/Results/Core Measures Results/Orders Lab Results Laboratory Tests Test 09/22/21 02:59 09/22/21 05:10 Range/Units White Blood Count 13.7 H 4.3-11.0 10^3/uL Red Blood Count 4.49 3.80-5.11 10^6/uL Hemoglobin 13.9 11.5-16.0 g/dL Hematocrit 42 35-52 % Mean Corpuscular Volume 94 80-99 fL Mean Corpuscular Hemoglobin 31 25-34 pg Mean Corpuscular Hemoglobin Concent 33 32-36 g/dL Red Cell Distribution Width 14.2 10.0-14.5 % Platelet Count 371 130-400 10^3/uL Mean Platelet Volume 10.2 9.0-12.2 fL Immature Granulocyte % (Auto) 0 % Neutrophils (%) (Auto) 83 H 42-75 % Lymphocytes (%) (Auto) 9 L 12-44 % Monocytes (%) (Auto) 5 0-12 % Eosinophils (%) (Auto) 2 0-10 % Basophils (%) (Auto) 0 0-10 % Neutrophils # (Auto) 11.4 H 1.8-7.8 10^3/uL Lymphocytes # (Auto) 1.2 1.0-4.0 10^3/uL Monocytes # (Auto) 0.7 0.0-1.0 10^3/uL Eosinophils # (Auto) 0.3 0.0-0.3 10^3/uL Basophils # (Auto) 0.1 0.0-0.1 10^3/uL Immature Granulocyte # (Auto) 0.1 0.0-0.1 10^3/uL Prothrombin Time 12.7 12.2-14.7 SEC INR Comment 0.9 0.8-1.4 Activated Partial Thromboplast Time 32 24-35 SEC Sodium Level 139 135-145 MMOL/L Potassium Level 4.2 3.6-5.0 MMOL/L Chloride Level 106 98-107 MMOL/L Carbon Dioxide Level 20 L 21-32 MMOL/L Anion Gap 13 5-14 MMOL/L Blood Urea Nitrogen 31 H 7-18 MG/DL Creatinine 2.15 H 0.60-1.30 MG/DL Estimat Glomerular Filtration Rate 23 BUN/Creatinine Ratio 14 Glucose Level 167 H 70-105 MG/DL Calcium Level 10.2 H 8.5-10.1 MG/DL Corrected Calcium 9.8 8.5-10.1 MG/DL Magnesium Level 1.9 1.6-2.4 MG/DL Total Bilirubin 0.5 0.1-1.0 MG/DL Aspartate Amino Transf (AST/SGOT) 22 5-34 U/L Alanine Aminotransferase (ALT/SGPT) 15 0-55 U/L Alkaline Phosphatase 88 40-136 U/L Myoglobin 222.0 H 10.0-92.0 NG/ML Troponin I < 0.028 0.042 H <0.028 NG/ML B-Type Natriuretic Peptide 411.8 H <100.0 PG/ML Total Protein 7.7 6.4-8.2 GM/DL Albumin 4.5 3.2-4.5 GM/DL Lipase 31 8-78 U/L (CARMINE TIPTON MD) Medications Given in ED Current Medications Medications Dose Ordered Sig/Sly Route Start Time Stop Time Status Last Admin Dose Admin Aspirin 324 mg ONCE ONCE PO 09/22/21 03:15 09/22/21 03:19 DC 09/22/21 03:38 324 MG (CARMINE TIPTON MD) Vital Signs/I&O 09/22/21 02:54 Temp 37.0 Pulse 77 Resp 19 B/P (MAP) 247/107 (153) Pulse Ox 94 O2 Delivery Room Air (CARMINE TIPTON MD) Admisison Planning May Need Admission (Planning): 06:24 (CARMINE TIPTON MD) Progress Progress Note #1: Time: 03:41 Progress Note 324 ASA. NG if pain returns. BP dropped from 240 syst to 170's with just rest. Will continue to monitor. Progress Note #2: Time: 05:35 Progress Note The patient continues to have no chest pain shortness of air or other symptoms. She has spontaneously had her blood pressure go down to 140s over 80 with no further intervention. If a delta troponin is negative we will let her go home. We did discuss her case with Dr. Fernandes who agrees with this plan. Follow-up with cardiology to discuss ranolazine, Imdur titration etc. (ABHIJEET SAMUELS) Progress Note : Time: 06:25 Progress Note Care assumed at shift change from Dr Samuels. Troponin bumped up marginally from undetectable to 0.042. Patient's BP now in a more acceptable range with systolic 140's. Patient with angioplasty after in-stent restenosis in both 2019 and 2020 - no studies since in our electronic record. Will discuss admission with hospitalist and Dr Fernandes. (CARMINE TIPTON MD) Initial ECG Impression Date: Sep 22, 2021 Initial ECG Impression Time: 02:55 Initial ECG Rate: 76 Initial ECG Rhythm: Normal Sinus Initial ECG Intervals: Normal Initial ECG Impression: Normal Initial ECG Comparisson: Unchanged Comment Normal sinus rhythm with LVH but no clinically relevant ST elevation or depression. (ABHIJEET SAMUELS) Diagnostic Imaging Diagonstic Imaging: Xray Plain Films/CT/US/NM/MRI: chest Comments [facility] [place], [place] NAME: NESTORDHARMESHFREDO Milo MED REC#: [id number] PT STATUS: ADM Lesly : 1945 PHYSICIAN: ABHIJEET SAMUELS MD ADMIT DATE: 09/22/21/[facility] Signed Date of Exam:09/22/21 CHEST 1 VIEW, AP/PA ONLY INDICATION: Chest pain. EXAMINATION: Single view chest 09/22/2021. COMPARISON: 05/15/2021 FINDINGS: There is postoperative change in the cervical region. Heart and pulmonary vasculature normal. There is atelectasis in the medial right lung base with remaining lungs clear. There are no infiltrates effusions or pneumothorax. IMPRESSION: Atelectasis in the right medial of lung base with remaining chest clear. Dictated by: Dictated on workstation # [id number] Dict: 09/22/21 0708 Trans: 09/22/21 0757 CVB [id number] Interpreted by: ESTELA CLIFFORD MD Electronically signed by: ESTELA CLIFFORD MD 09/22/21 0757 Reviewed: Reviewed by Me (ABHIJEET SAMUELS) Departure Communication (Admissions) Time/Spoke to Admitting Phy: 07:[address] Harding Time/Spoke to Consulting Phy: 07:[address] Fernandes; does not need to be NPO (CARMINE TIPTON MD) Impression Primary Impression: Hypertensive emergency Additional Impressions: Chest pain Qualified Codes: I25.9 - Chronic ischemic heart disease, unspecified Elevated troponin History of coronary artery disease Disposition: ADMITTED INPATIENT Condition: Stable Admissions Decision to Admit Reason: Admit from ER (General) Decision to Admit/Date: Sep 22, 2021 Time/Decision to Admit Time: 06:28 (CARMINE TIPTON MD) Departure-Patient Inst. Referrals: RAJWINDER CARVAJAL MD (PCP/Family) Primary Care Physician Patient Instructions: Chest Pain (DC) Add. Discharge Instructions: Make an appointment with your [facility] [employer] to discuss whether your Imdur or other medications need to be adjusted. You may consider Ranexa/ranolazine as an alternative with your [employer]. All discharge instructions reviewed with patient and/or family. Voiced understanding. ABHIJEET SAMUELS Sep 22, 2021 03:38 CARMINE TIPTON MD Sep 22, 2021 06:28
[2021-09-22 03:42] LABS: ALBUMIN 4.5 GM/DL (3.2-4.5); BILIRUBIN,TOTAL 0.5 MG/DL (0.1-1.0); CALCIUM 10.2 MG/DL (8.5-10.1); CREATININE SERUM 2.15 MG/DL (0.60-1.30); MAGNESIUM 1.9 MG/DL (1.6-2.4); POTASSIUM 4.2 MMOL/L (3.6-5.0); TOTAL PROTEIN 7.7 GM/DL (6.4-8.2)
--- NOTE | 2021-09-22 07:10 | Diagnostic Imaging Report ---
INDICATION: Chest pain. EXAMINATION: Single view chest 09/22/2021. COMPARISON: 05/15/2021 FINDINGS: There is postoperative change in the cervical region. Heart and pulmonary vasculature normal. There is atelectasis in the medial right lung base with remaining lungs clear. There are no infiltrates effusions or pneumothorax. IMPRESSION: Atelectasis in the right medial of lung base with remaining chest clear. Dictated by: Dictated on workstation # [id number]
--- NOTE | 2021-09-22 08:12 | Consultation-Cardiology ---
HPI-Cardiology Cardiology Consultation: Date of Consultation 09/22/21 Time Seen by a Provider: 08:30 Date of Admission 09/21/21 Attending Physician Amanda Harding MD Admitting Physician Tone Perez MD Consulting Physician Chilango Fernandes MD HPI: Chief Complaint: Uncontrolled HTN Chest discomfort Ms. Huang is a 76 yr old female admitted to [facility]. She reports last night she got up to let the dog out and felt "off" so she checked her BP and noted it to be high. She states she was having chest heaviness across her chest. She reports no other assoc symptoms with the chest discomfort. She reports she took a nitro which provided some relief. She reports she waited about 25 minute and took her BP again, reports it was still greater than 200 mmHg systolic and she was still having chest discomfort. She reports she took another nitro. She states she then decided to come to the ED. She reports this morning she has some chest pressure, but it has improved from earlier. She states she was seen in May by a provider, Dr. Carrillo at [facility] for blood pressure management. She reports he adjusted her medications, but her BP has not been controlled. She reports episodes of low pressure at times as well which makes her feel weak and unwell. She states she increased her Cardura to 8mg twice a day on her own. She denies any palpitations, syncope, near syncope. No c/o LE swelling. Review of Systems-Cardiology Review of Systems Constitutional: No chills, No fever; malaise Eyes: No vision change Ears/Nose/Throat: No epistaxis, No recent hearing loss Respiratory: As described under HPI Cardiovascular: As described under HPI Gastrointestinal: No constipation, No diarrhea, No nausea, No vomiting Genitourinary: No hematuria Musculoskeletal: joint pain Skin: No rash on exposed areas Psychiatric/Neurological: anxiety; No depression, No seizure, No focal weak ness, No syncope Hematologic: No bleeding abnormalities All Other Systems Reviewed Negative Unless Noted: Yes WUP-Trcqjw-Zpxnlo Hx Patient Social History Smoking Status: Former Smoker 2nd Hand Smoke Exposure: No Have you traveled recently?: No Alcohol Use?: No Pt feels they are or have been: No Immunizations Up To Date Tetanus Booster (TDap): Less than 5yrs Date of Pneumonia Vaccine: May 04, 2016 Date of Influenza Vaccine: Apr 28, 2020 Past Medical History PMH As described under Assessment. Family Medical History Family Medical History: Does not eport fam h/o early CAD Allergies and Home Medications Allergies Coded Allergies: atorvastatin calcium (Unverified Allergy, Unknown, 07/27/16) cefdinir (Verified Allergy, Unknown, 09/01/17) codeine (Unverified Allergy, Unknown, 07/27/16) doxycycline (Verified Allergy, Unknown, 09/01/17) escitalopram oxalate (Unverified Allergy, Unknown, 07/27/16) niacin (Unverified Allergy, Unknown, 07/27/16) oxycodone (Verified Allergy, Unknown, 09/01/17) simvastatin (Unverified Allergy, Unknown, 07/27/16) tramadol (Unverified Allergy, Unknown, 07/27/16) acetaminophen (Verified Adverse Reaction, Mild, 10/17/19) TYLENOL WITH CODEINE MAKE PT ITCH. Patient Home Medication List Acetaminophen (Tylenol Extra Strength) 500 Mg Tablet, 500-1,000 MG PO Q6H PRN for PAIN-MILD (1-4), (Reported) Entered as Reported by: LINDA HESS on 10/07/20 153 Amlodipine Besylate (Amlodipine Besylate) 10 Mg Tablet, 10 MG PO DAILY, (Reported) Entered as Reported by: AZALIA BELLAMY on 11/18/20 131 Aspirin (Aspirin EC) 81 Mg Tablet.dr, 81 MG PO DAILY, (Reported) Entered as Reported by: LINDA HESS on 10/07/20 1538 Bisoprolol Fumarate (Bisoprolol Fumarate) 10 Mg Tablet, 10 MG PO DAILY, (Repor seth) Entered as Reported by: AZALIA BELLAMY on 11/18/20 131 Clopidogrel Bisulfate (Clopidogrel) 75 Mg Tablet, 75 MG PO DAILY, (Reported) Entered as Reported by: LINDA HESS on 10/07/20 153 Doxazosin Mesylate (Doxazosin Mesylate) 8 Mg Tablet, 8 MG PO BID, (Reported) Entered as Reported by: LINDA HESS on 10/07/20 153 Furosemide (Furosemide) 20 Mg Tablet, 20 MG PO DAILY, (Reported) Entered as Reported by: AZALIA BELLAMY on 11/18/20 131 Gabapentin (Neurontin) 300 Mg Capsule, 300 MG PO 0800,1500,2200, (Reported) Entered as Reported by: LINDA HESS on 10/07/20 1538 Glimepiride (Glimepiride) 4 Mg Tablet, 4 MG PO BID, (Reported) Entered as Reported by: MAIK SEGOVIA on 10/17/19 0854 Isosorbide Mononitrate (Isosorbide Mononitrate ER) 120 Mg Tab.er.24h, 120 MG PO DAILY, (Reported) Entered as Reported by: TERESA BATES on 10/04/18 0911 Isosorbide Mononitrate (Isosorbide Mononitrate ER) 60 Mg Tab, 60 MG PO DAILY Prescribed by: ABHIJEET NARAYAN on 01/11/212016 Losartan Potassium (Losartan Potassium) 100 Mg Tablet, 100 MG PO DAILY, (Reported) Entered as Reported by: TERESA BATES on 10/04/18 09 Pantoprazole Sodium (Pantoprazole Sodium) 40 Mg Tablet.dr, 40 MG PO DAILY, (Reported) Entered as Reported by: TERESA BATES on 10/04/18 09 Physical Exam-Cardiology Physical Exam Vital Signs/I&O 09/22/21 09/22/21 09/22/21 09/22/21 02:54 07:51 08:06 08:11 Temp 37.0 37.0 Pulse 77 65 64 Resp 19 16 B/P (MAP) 247/107 (153) 168/86 Pulse Ox 94 95 97 O2 Delivery Room Air Room Air Room Air Capillary Refill : Less Than 3 Seconds Constitutional: AAO x 3, well-developed, well-nourished HEENT: PERRL, hearing is well preserved; No oral hygience is good (missing teeth) Neck: No carotid bruit Respiratory: No accessory muscle use, No respiratory distress; chest expansion is symmetric, chest is bilaterally symmetric Cardiovascular: regular rate-rhythm; No JVD; S1 and S2 Gastrointestinal: No tender; soft, round, audible bowel sounds Extremities: no lower extremity edema bilateral Neurologic/Psychiatric: grossly intact (moves all extremities) Skin: No rash on exposed areas, No ulcerations on exposed areas Data Review Labs Laboratory Tests 09/22/21 02:59: White Blood Count 13.7H, Red Blood Count 4.49, Hemoglobin 13.9, Hematocrit 42, Mean Corpuscular Volume 94, Mean Corpuscular Hemoglobin 31, Mean Corpuscular Hemoglobin Concent 33, Red Cell Distribution Width 14.2, Platelet Count 371, Mean Platelet Volume 10.2, Immature Granulocyte % (Auto) 0, Neutrophils (%) (Auto) 83H, Lymphocytes (%) (Auto) 9L, Monocytes (%) (Auto) 5, Eosinophils (%) (Auto) 2, Basophils (%) (Auto) 0, Neutrophils # (Auto) 11.4H, Lymphocytes # (Auto) 1.2, Monocytes # (Auto) 0.7, Eosinophils # (Auto) 0.3, Basophils # (Auto) 0.1, Immature Granulocyte # (Auto) 0.1, Prothrombin Time 12.7, INR Comment 0.9, Activated Partial Thromboplast Time 32, Sodium Level 139, Potassium Level 4.2, Chloride Level 106, Carbon Dioxide Level 20L, Anion Gap 13, Blood Urea Nitrogen 31H, Creatinine 2.15H, Estimat Glomerular Filtration Rate 23, BUN/Creatinine Rat io 14, Glucose Level 167H, Calcium Level 10.2H, Corrected Calcium 9.8, Magnesium Level 1.9, Total Bilirubin 0.5, Aspartate Amino Transf (AST/SGOT) 22, Alanine Aminotransferase (ALT/SGPT) 15, Alkaline Phosphatase 88, Myoglobin 222.0H, Tro ponin I < 0.028, B-Type Natriuretic Peptide 411.8H, Total Protein 7.7, Albumin 4.5, Lipase 31 09/22/21 05:10: Troponin I 0.042H Laboratory Tests 09/22/21 02:59 Radiology NAME: FREDO HUANG [facility] REC#: [id number] PT STATUS: ADM Lesly : 1945 PHYSICIAN: ABHIJEET NARAYAN MD ADMIT DATE: 09/22/21/[facility] Signed Date of Exam:09/22/21 CHEST 1 VIEW, AP/PA ONLY INDICATION: Chest pain. EXAMINATION: Single view chest 09/22/2021. COMPARISON: 05/15/2021 FINDINGS: There is postoperative change in the cervical region. Heart and pulmonary vasculature normal. There is atelectasis in the medial right lung base with remaining lungs clear. There are no infiltrates effusions or pneumothorax. IMPRESSION: Atelectasis in the right medial of lung base with remaining chest clear. Dictated by: Dictated on workstation # [id number] Dict: 09/22/21 0708 Trans: 09/22/21 0757 CVB [id number] Interpreted by: ESTELA CLIFFORD MD Electronically signed by: ESTELA CLIFFORD MD 09/22/21 0757 ECG Impression ECG Initial ECG Rhythm: Normal Sinus A/P-Cardiology Assessment/Admission Diagnosis Hypertension, labile - management complex because she worries and takes bp at home many times a day and adjusts meds. She has had some low bp readings Minimally elevated troponin - Type 2 UT secondary to uncontrolled HTN vs NSTEMI CAD: - H/o cor stents (LAD and diag) with Dr Whitley. - Cardiac cath of October 16, 2019: Coronary artery disease consisting primarily of 70% in-stent restenosis of the left anterior descending (fractional flow reserve 0.8). To this, successful balloon angioplasty was carried out. The left anterior descending has approximately 50% bifurcation stenosis. The left circumflex artery has a 50% stenosis in its proximal to mid portion and 70% stenosis in its mid to distal portion and fractional flow reserve across a combination of these lesions is 0.89, indicating hemodynamic insignificance. R ight coronary artery is dominant and has a patent stent in its distal portion. The right coronary artery has mild to moderate diffuse disease. Mildly elevated left ventricular end-diastolic pressure. - MPI of 04/02/20: no ischemia or infarction, LVEF 64% - MPI of 11/18/20: no ischemia or infarct, LVEF 62% - Echo of 11/16/20: LVEF 55-65%, mild MR and trivial AI, PASP 35-45 mmHg Renal artery stenosis - H/o bilateral renal artery stents with Dr Whitley. Mod bilat renal artery stenoses on renal a angio of 03/09/16 (Dr Vasquez) - Renal artery duplex on 06-25-21 at [facility] by Dr. Carrlilo showed Renal arteries and veins are patent bilat. Patent stents bilat in the prox segments of the renal arteries with no evidence of flow acceleration to suggest hemodynamically signif stenosis. No high grade stenosis DM II - managed by PCP CKD 4, - probably diabetic nephropathy, followed and treated by her heading pinner Dr Ramirez Chronic back pain - managed by PCP Bilateral leg discomfort, - No evidence of PAD of the lower limbs, per segmentals of Mar 2020 Chronic tobacco use, - quit in 2011 COPD - managed by PCP AUDIE - treated with CPAP Myeloproliferative disorder - with leuckocytosis and thrombocytosis and chronic anemia - managed by [facility] [place], [place] Carotid dz: - Mild carotid art disease on carotid u/s of Mar 2020 No evidence of AAA per scan of Mar 2020 Chronic back pain and cervical radiculopathy - followed and treated by her spine surgeon Bilat leg swelling - due to venous insuff and, possibly, CCB therapy Multinodular thyroid goiter - followed by her oncologist HLD - refuses statin tx d/t reported intolerance Discussion and Recomendations Complex management issue for reasons noted above We have reviewed the records from [facility] and her BP logs (extensive BP logs) from home Minimally elevated troponin - Type 2 UT secondary to uncontrolled HTN vs NSTEMI - advise MPI to be done tomorrow We will increase the Bisoprolol to 10mg BID We are going to change the Imdur to 120mg once a day We are going to stop the Lasix d/t normal LVEF on recent echo and no clinicaly evidence of CHF Monitor lab closely Further recs will be based on her hospital course We would like to thank medical services for this consult Clinical Quality Measures AMI/AHF: ASA po Prior to arrival: JENNIFER Balderas Sep 22, 2021 08:12
[2021-09-22] MEDS ORDERED: CATHETER FLUSH 10 ML SYR IV PRN (08:30)
[2021-09-22] MEDS ORDERED: PATIENT MAY USE OWN MEDS, ALL PO SCH (08:45)
[2021-09-22] MEDS: hydrALAZINE (APESOLINE) 20 MG/ML VIAL IV PRN ×3 (08:54→21:05)
[2021-09-22] MEDS ORDERED: ISOSORBIDE MONONITRATE 60 MG (IMDUR) TAB PO NR (09:49)
[2021-09-22] MEDS ORDERED: LOSARTAN 50 MG (COZAAR) TAB PO NR (09:49)
[2021-09-22] MEDS ORDERED: doxAzosin 4 MG (CARDURA) TAB PO NR (09:50)
[2021-09-22] MEDS ORDERED: LOSA50TA63 PO (10:20)
[2021-09-22] MEDS ORDERED: DOXA4TAB2 PO (10:20)
[2021-09-22] MEDS ORDERED: IPRA0.2S51 IH (10:28)
[2021-09-22] MEDS ORDERED: ALB0.5V INH (10:28)
[2021-09-22] MEDS: inSUlin ASPART (NovoLOG) 1 UNIT/0.01 ML (CHARGE PER UNIT) SC SCH ×3 (11:11→20:03)
[2021-09-22] MEDS: BISOPROLOL 10 MG PO SCH ×2 (13:28→19:52)
[2021-09-22] MEDS: CATHETER FLUSH 10 ML SYR IV SCH ×2 (14:54→19:52)
--- NOTE | 2021-09-22 14:57 | Consultation-Cardiology ---
HPI-Cardiology Cardiology Consultation: Date of Consultation 09/22/21 Time Seen by a Provider: 09:00 Date of Admission Attending Physician Amanda Harding MD Admitting Physician Tone Perez MD Consulting Physician CHRISTY ESQUIVEL MD, MA, FACP, FACC, FSCAI, CCDS HPI: Chief Complaint: Uncontrolled HTN Chest discomfort Ms. Huang is a 76 yr old female admitted to [facility]. She reports last night she got up to let the dog out and felt "off" so she checked her BP and noted it to be high. She states she was having chest heaviness across her chest. She reports no other assoc symptoms with the chest discomfort. She reports she took a nitro which provided some relief. She reports she waited about 25 minute and took her BP again, reports it was still greater than 200 mmHg systolic and she was still having chest discomfort. She reports she took another nitro. She states she then decided to come to the ED. She reports this morning she has some chest pressure, but it has improved from earlier. She states she was seen in May by a provider, Dr. Carrillo at [facility] for blood pressure management. She reports he adjusted her medications, but her BP has not been controlled. She reports episodes of low pressure at times as well which makes her feel weak and unwell. She states she increased her Cardura to 8mg twice a day on her own. She denies any palpitations, syncope, near syncope. No c/o LE swelling. Review of Systems-Cardiology Review of Systems Constitutional: No chills, No fever; malaise Eyes: No vision change Ears/Nose/Throat: No epistaxis, No recent hearing loss Respiratory: As described under HPI Cardiovascular: As described under HPI Gastrointestinal: No constipation, No diarrhea, No nausea, No vomiting Genitourinary: No hematuria Musculoskeletal: joint pain Skin: No rash on exposed areas Psychiatric/Neurological: anxiety; No depression, No seizure, No focal weakness, No syncope Hematologic: No bleeding abnormalities All Other Systems Reviewed Negative Unless Noted: Yes YXS-Wxmmao-Ncnzmw Hx Patient Social History Smoking Status: Former Smoker 2nd Hand Smoke Exposure: No Have you traveled recently?: No Alcohol Use?: No Pt feels they are or have been: No Immunizations Up To Date Tetanus Booster (TDap): Less than 5yrs Date of Pneumonia Vaccine: May 04, 2016 Date of Influenza Vaccine: Jun 27, 2021 Past Medical History PMH As described under Assessment. Family Medical History Family Medical History: Does not eport fam h/o early CAD Allergies and Home Medications Allergies Coded Allergies: atorvastatin calcium (Unverified Allergy, Unknown, 07/27/16) cefdinir (Verified Allergy, Unknown, 09/01/17) codeine (Unverified Allergy, Unknown, 07/27/16) doxycycline (Verified Allergy, Unknown, 09/01/17) escitalopram oxalate (Unverified Allergy, Unknown, 07/27/16) niacin (Unverified Allergy, Unknown, 07/27/16) oxycodone (Verified Allergy, Unknown, 09/01/17) simvastatin (Unverified Allergy, Unknown, 07/27/16) tramadol (Unverified Allergy, Unknown, 07/27/16) acetaminophen (Verified Adverse Reaction, Mild, 10/17/19) TYLENOL WITH CODEINE MAKE PT ITCH. Patient Home Medication List Home Medication List Reviewed: Yes Acetaminophen (Tylenol Extra Strength) 500 Mg Tablet, 500-1,000 MG PO Q6H PRN for PAIN-MILD (1-4), (Reported) Entered as Reported by: LINDA HESS on 10/07/201537 Last Action: Reviewed Albuterol Sulfate (Albuterol Sulfate) 2.5 Mg/0.5 Ml Vial.neb, 2.5 MG INH Q6H PRN for SHORTNESS OF BREATH, (Reported) Entered as Reported by: LINDA HESS on 09/22/21 1028 Last Action: Reviewed Aspirin (Aspirin EC) 81 Mg Tablet.dr, 81 MG PO DAILY, (Reported) Entered as Reported by: LINDA HESS on 10/07/201537 Last Action: Reviewed Bisoprolol Fumarate (Bisoprolol Fumarate) 10 Mg Tablet, 10 MG PO DAILY, (Reported) Entered as Reported by: AZALIA BELLAMY on 11/18/20 1318 Last Action: Reviewed Clopidogrel Bisulfate (Clopidogrel) 75 Mg Tablet, 75 MG PO DAILY, (Reported) Entered as Reported by: LINDA HESS on 10/07/201537 Last Action: Reviewed Doxazosin Mesylate (Doxazosin Mesylate) 4 Mg Tablet, 8 MG PO BID, (Reported) Entered as Reported by: LINDA HESS on 09/22/21 1020 Last Action: Reviewed Furosemide (Furosemide) 20 Mg Tablet, 20 MG PO DAILY, (Reported) Entered as Reported by: AZALIA BELLAMY on 11/18/20 1318 Last Action: Reviewed Gabapentin (Neurontin) 300 Mg Capsule, 300 MG PO TID, (Reported) Entered as Reported by: LINDA HESS on 10/07/20 1538 Last Action: Reviewed Glimepiride (Glimepiride) 4 Mg Tablet, 4 MG PO BID, (Reported) Entered as Reported by: MAIK SEGOVIA on 10/17/19 0854 Last Action: Reviewed Ipratropium Buchanan (Ipratropium Buchanan) 0.2 Mg/1 Ml Solution, 0.2 MG IH Q8H PRN for SHORTNESS OF BREATH, (Reported) Entered as Reported by: LINDA HESS on 09/22/21 102 Last Action: Reviewed Isosorbide Mononitrate (Isosorbide Mononitrate ER) 120 Mg Tab.er.24h, 120 MG PO BID, (Reported) Entered as Reported by: TERESA BATES on 10/04/18 0911 Last Action: Reviewed Losartan Potassium (Losartan Potassium) 50 Mg Tablet, 50 MG PO BID, (Reported) Entered as Reported by: LINDA HESS on 09/22/21 102 Last Action: Reviewed Pantoprazole Sodium (Pantoprazole Sodium) 40 Mg Tablet.dr, 40 MG PO DAILY, (Reported) Entered as Reported by: TERESA BATES on 10/04/18 0912 Last Action: Reviewed Discontinued Medications Amlodipine Besylate (Amlodipine Besylate) 10 Mg Tablet, 10 MG PO DAILY, (Reported) Discontinued Reason: No Longer Taking Entered as Reported by: AZALIA BELLAMY on 11/18/208 Last Action: Discontinued Doxazosin Mesylate (Doxazosin Mesylate) 8 Mg Tablet, 8 MG PO BID, (Reported) Discontinued Reason: Duplicate Order Entered as Reported by: LINDA HESS on 10/07/201537 Last Action: Discontinued Isosorbide Mononitrate (Isosorbide Mononitrate ER) 60 Mg Tab, 60 MG PO DAILY Discontinued Reason: No Longer Taking Prescribed by: ABHIJEET NARAYAN on 01/11/212016 Last Action: Discontinued Losartan Potassium (Losartan Potassium) 100 Mg Tablet, 100 MG PO DAILY, (Reported) Discontinued Reason: Duplicate Order Entered as Reported by: TERESA BATES on 10/04/18911 Last Action: Discontinued Physical Exam-Cardiology Physical Exam Vital Signs/I&O 09/22/21 09/22/21 09/22/21 09/22/21 07:51 08:00 08:06 08:11 Temp 37.0 36.2 Pulse 65 69 64 Resp 16 14 B/P (MAP) 168/86 208/90 (129) Pulse Ox 95 97 97 O2 Delivery Room Air Room Air Room Air 09/22/21 09/22/21 09/22/21 09/22/21 08:30 11:23 11:43 13:00 Temp 37.0 37.0 Pulse 67 74 58 Resp 11 22 B/P (MAP) 208/90 (124) 187/89 (121) Pulse Ox 98 97 96 O2 Delivery Room Air Room Air Room Air 09/22/21 14:44 Temp 37.0 Pulse 58 Pulse Ox 96 FiO2 21 Capillary Refill : Less Than 3 Seconds Constitutional: AAO x 3, well-developed, well-nourished HEENT: PERRL, hearing is well preserved; No oral hygience is good (missing teeth) Neck: No carotid bruit Respiratory: No accessory muscle use, No respiratory distress; chest expansion is symmetric, chest is bilaterally symmetric Cardiovascular: regular rate-rhythm; No JVD; S1 and S2 Gastrointestinal: No tender; soft, round, audible bowel sounds Extremities: no lower extremity edema bilateral Neurologic/Psychiatric: grossly intact (moves all extremities) Skin: No rash on exposed areas, No ulcerations on exposed areas Data Review Labs Laboratory Tests 09/22/21 02:59: White Blood Count 13.7H, Red Blood Count 4.49, Hemoglobin 13.9, Hematocrit 42, Mean Corpuscular Volume 94, Mean Corpuscular Hemoglobin 31, Mean Corpuscular Hemoglobin Concent 33, Red Cell Distribution Width 14.2, Platelet Count 371, Mean Platelet Volume 10.2, Immature Granulocyte % (Auto) 0, Neutrophils (%) (Auto) 83H, Lymphocytes (%) (Auto) 9L, Monocytes (%) (Auto) 5, Eosinophils (%) (Auto) 2, Basophils (%) (Auto) 0, Neutrophils # (Auto) 11.4H, Lymphocytes # (Auto) 1.2, Monocytes # (Auto) 0.7, Eosinophils # (Auto) 0.3, Basophils # (Auto) 0.1, Immature Granulocyte # (Auto) 0.1, Prothrombin Time 12.7, INR Comment 0.9, Activated Partial Thromboplast Time 32, Sodium Level 139, Potassium Level 4.2, Chloride Level 106, Carbon Dioxide Level 20L, Anion Gap 13, Blood Urea Nitrogen 31H, Creatinine 2.15H, Estimat Glomerular Filtration Rate 23, BUN/Creatinine Ratio 14, Glucose Level 167H, Calcium Level 10.2H, Corrected Calcium 9.8, Magnesium Level 1.9, Total Bilirubin 0.5, Aspartate Amino Transf (AST/SGOT) 22, Alanine Aminotransferase (ALT/SGPT) 15, Alkaline Phosphatase 88, Myoglobin 222.0H, Troponin I < 0.028, B-Type Natriuretic Peptide 411.8H, Total Protein 7.7, Albumin 4.5, Lipase 31 09/22/21 05:10: Troponin I 0.042H 09/22/21 10:15: Glucometer 211H 09/22/21 12:20: Troponin I 0.042H A/P-Cardiology Assessment/Admission Diagnosis Hypertension, labile - management complex because she worries and takes bp at home many times a day and adjusts meds. She has had some low bp readings Minimally elevated troponin - Type 2 NE secondary to uncontrolled HTN CAD: - H/o cor stents (LAD and diag) with Dr Whitley. - Cardiac cath of October 16, 2019: Coronary artery disease consisting primarily of 70% in-stent restenosis of the left anterior descending (fractional flow reserve 0.8). To this, successful balloon angioplasty was carried out. The left anterior descending has approximately 50% bifurcation stenosis. The left circumflex artery has a 50% stenosis in its proximal to mid portion and 70% stenosis in its mid to distal portion and fractional flow reserve across a combination of these lesions is 0.89, indicating hemodynamic insignificance. Right coronary artery is dominant and has a patent stent in its distal portion. The right coronary artery has mild to moderate diffuse disease. Mildly elevated left ventricular end-diastolic pressure. - MPI of 04/02/20: no ischemia or infarction, LVEF 64% - MPI of 11/18/20: no ischemia or infarct, LVEF 62% - Echo of 11/16/20: LVEF 55-65%, mild MR and trivial AI, PASP 35-45 mmHg Renal artery stenosis - H/o bilateral renal artery stents with Dr Whitley. Mod bilat renal artery stenoses on renal a angio of 03/09/16 (Dr Vasquez) - Renal artery duplex on 06-25-21 at [facility] by Dr. Carrillo showed Renal arteries and veins are patent bilat. Patent stents bilat in the prox segments of the renal arteries with no evidence of flow acceleration to suggest hemodynamically signif stenosis. No high grade stenosis DM II - managed by PCP CKD 4, - probably diabetic nephropathy, followed and treated by her microcomputer technician Dr Ramirez Chronic back pain - managed by PCP Bilateral leg discomfort, - No evidence of PAD of the lower limbs, per segmentals of Mar 2020 Chronic tobacco use, - quit in 2011 COPD - managed by PCP AUDIE - treated with CPAP Myeloproliferative disorder - with leuckocytosis and thrombocytosis and chronic anemia - managed by [facility] [place], [place] Carotid dz: - Mild carotid art disease on carotid u/s of Mar 2020 No evidence of AAA per scan of Mar 2020 Chronic back pain and cervical radiculopathy - followed and treated by her spine surgeon Bilat leg swelling - due to venous insuff and, possibly, CCB therapy Multinodular thyroid goiter - followed by her oncologist HLD - refuses statin tx d/t reported intolerance Discussion and Recomendations Complex management issue for reasons noted above We have reviewed the records from [facility] and her BP logs (extensive BP logs) from home Minimally elevated troponin - Type 2 NE secondary to uncontrolled HTN vs NSTEMI - advise MPI to be done tomorrow We will increase the Bisoprolol to 10mg BID We are going to change the Imdur to 120mg once a day We are going to stop the Lasix d/t normal LVEF on recent echo and no clinicaly evidence of CHF Monitor lab closely Further recs will be based on her hospital course We would like to thank medical services for this consult Clinical Quality Measures AMI/AHF: ASA po Prior to arrival: CHRISTY Pompa MD FACP [facility] CCDS Sep 22, 2021 14:57
[2021-09-22] MEDS ORDERED: RT-ALBUTEROL SULF 2.5 MG/3 ML PRE-MIX VIAL INH PRN (15:00)
[2021-09-22] MEDS: RT-ALBUTEROL SULF 2.5 MG/3 ML PRE-MIX VIAL INH SCH ×2 (15:16→19:16)
--- NOTE | 2021-09-22 17:59 | History & Physical-Hospitalist ---
History of Present Illness HPI/Chief Complaint Mckenzie Huang is a 76 year old female with PMH HTN, T2DM, HLD, CAD, renal artery stenosis, CKD, COPD, AUDIE, myeloproliferative disorder, tobacco abuse, chronic back pain, who presented with chest pain. She started having chest pain last night. Her blood pressure was elevated >200. She took a nitroglycerin with minimal relief. She took another nitroglycerin and came to the ER. Her blood pressure was still elevated at that time. She denies palpitations. She reports shortness of breath. She denies fevers. She denies cough. She denies abdominal pain, nausea, vomiting, and diarrhea. She has been taking her medications as prescribed. Her blood sugars have been normal to slightly elevated. Source: patient Exam Limitations: no limitations Date Seen 09/22/21 Time Seen by a Provider: 10:25 Attending Physician Dali Harding MD PCP Tone Perez MD Referring Physician Date of Admission Sep 22, 2021 at 07:23 Home Medications & Allergies Home Medications Reviewed patient Home Medication Reconciliation performed by pharmacy medication reconciliations electrical and instrument technician and/or nursing. Patients Allergies have been reviewed. Allergies Allergies Coded Allergies atorvastatin calcium (Unverified Allergy, Unknown, 07/27/16) cefdinir (Verified Allergy, Unknown, 09/01/17) codeine (Unverified Allergy, Unknown, 07/27/16) doxycycline (Verified Allergy, Unknown, 09/01/17) escitalopram oxalate (Unverified Allergy, Unknown, 07/27/16) niacin (Unverified Allergy, Unknown, 07/27/16) oxycodone (Verified Allergy, Unknown, 09/01/17) simvastatin (Unverified Allergy, Unknown, 07/27/16) tramadol (Unverified Allergy, Unknown, 07/27/16) acetaminophen (Verified Adverse Reaction, Mild, 10/17/19) TYLENOL WITH CODEINE MAKE PT ITCH. Past Dbxceop-Odxfjf-Hrmpbe Hx Patient Social History Tobacco Use?: No Smoking Status: Former Smoker Use of E-Cig and/or Vaping dev: No Substance use?: No Alcohol Use?: No Pt feels they are or have been: No Immunizations Up To Date Date of Influenza Vaccine: Jun 27, 2021 First/Initial COVID19 Vaccinat: 09/02/2020 Second COVID19 Vaccination Willis: 09/26/2020 Tetanus Booster (TDap): Unknown Hepatitis A: No Hepatitis B: No PED Vaccines UTD: No Date of Pneumonia Vaccine: May 04, 2016 Seasonal Allergies Seasonal Allergies: No Current Status status: No Advance Directives: No Communicates: Verbally Primary Language: Guatemalan Preferred Spoken Language: Guatemalan Is interpretation needed?: No Sensory deficits: Hearing impairment Implanted or Applied Medical D: Stents Past Medical History Surgeries: Bladder Surgery, Coronary Stent, Gallbladder, Hysterectomy, Orthopedic, Tonsillectomy, Vascular Surgery Sleep Apnea, COPD Currently Using CPAP: Yes Chronic Edema/Swelling, Coronary Artery Disease, High Cholesterol, Hypertension, Peripheral Vascular Neuropathy Sexually Transmitted Disease: No HIV/AIDS: No Renal Failure Chronic Diarrhea, Polyps Degenerate Disk Disease, Fibromyalgia Adrenal Disease, Diabetes, Non-Insulin dep Loss of Vision: Bilateral Hearing Impairment: Hard of Hearing Blood Disorders: Yes (ANEMIA; MYELOPROLIFERATIVE DISORDER) Adverse Reaction/Blood Tranf: No HTN Renal artery stenosis CAD T2DM CKD Stage 4 HLD Myeloproliferative disorder HFpEF Family Medical History Heart Disease, Cancer, CAD Over 55 Years Old, Stroke Non-contributory Review of Systems Constitutional: no symptoms reported EENTM: no symptoms reported Respiratory: short of breath Cardiovascular: chest pain Gastrointestinal: no symptoms reported Genitourinary: no symptoms reported Musculoskeletal: no symptoms reported Skin: no symptoms reported Psychiatric/Neurological: No Symptoms Reported Physical Exam Physical Exam Vital Signs Vital Signs - First Documented 09/22/21 09/22/21 02:54 14:44 Temp 37.0 Pulse 77 Resp 19 B/P (MAP) 247/107 (153) Pulse Ox 94 O2 Delivery Room Air FiO2 21 Capillary Refill : Less Than 3 Seconds Height, Weight, BMI Height: 5'2.00" Weight: 166lbs. 6.0oz. [id number]; 29.85 BMI Method:Stated General Appearance: No Apparent Distress, WD/WN HEENT: PERRL/EOMI, Pharynx Normal Neck: Normal Inspection, Supple Respiratory: Lungs Clear, Normal Breath Sounds, No Respiratory Distress Cardiovascular: Regular Rate, Rhythm, No Edema, No Murmur Gastrointestinal: Normal Bowel Sounds, Non Tender, Soft Extremity: Normal Inspection, Non Tender, No Pedal Edema Neurologic/Psychiatric: Alert, Oriented x3, No Motor/Sensory Deficits, Normal Mood/Affect Skin: Normal Color, Warm/Dry Results Results/Procedures Labs Laboratory Tests 3/28/22 02:59 Patient resulted labs reviewed. Imaging: Reviewed Imaging Report Assessment/Plan Admission Diagnosis Hypertensive emergency Admission Status: Observation Assessment and Plan HTN emergency Essential hypertension Elevated troponin Coronary artery disease IV Hydralazine as needed Resume home meds Cardiology consulted Trending troponins T2DM Sliding scale insulin CKD 4 Monitor COPD AUDIE HLD Chronic back pain Myeloproliferative disorder Tobacco abuse Continue home meds DVT prophylaxis: Lovenox Diagnosis/Problems Diagnosis/Problems (1) Hypertensive emergency Status: Acute (2) Elevated troponin Status: Acute (3) Chest pain Status: Acute Qualifiers: Chest pain type: chest pain due to myocardial ischemia Ischemic chest pain type: unspecified angina pectoris type Qualified Codes: I25.9 - Chronic ischemic heart disease, unspecified Clinical Quality Measures AMI/AHF: ASA po Prior to arrival: DALI Ramires MD Sep 22, 2021 17:59
[2021-09-22] MEDS ORDERED: ENOXAPARIN 40 MG/0.4 ML (LOVENOX) SYR SQ SCH (18:00)
[2021-09-22] MEDS ORDERED: ENOXAPARIN INJECTION 30 MG/0.3 ML SYR SC SCH (18:30)
[2021-09-22] MEDS: doxAzosin 4 MG (CARDURA) TAB PO SCH (19:52)
[2021-09-22] MEDS ORDERED: ALPRAZolam 0.25 MG (XANAX) TAB PO PRN (21:00)
[2021-09-22] MEDS ORDERED: DOCUSATE SODIUM 100 MG (COLACE) CAP PO PRN (21:00)
[2021-09-22] MEDS ORDERED: ONDANSETRON 4 MG/2 ML (SDV) Z0FRAN IVP PRN (21:00)
[2021-09-22] MEDS ORDERED: HYDROcodone/APAP 5 MG/325 MG (LORTAB) TAB PO PRN (21:00)
[2021-09-22] MEDS ORDERED: diphenhydrAMINE 25 MG TAB (BENADRYL) PO PRN (21:00)
[2021-09-22] MEDS ORDERED: LOPERAMIDE 2 MG (IMODIUM) TABLET PO PRN (21:00)
[2021-09-22] MEDS ORDERED: CALCIUM CARBONATE 500 MG (TUMS) TAB.CHEW PO PRN (21:00)
[2021-09-22] MEDS ORDERED: MELATONIN 3 MG TABLET PO PRN (21:00)
[2021-09-22] MEDS: SENNA W/DOCUSATE (SENOKOT S) TABLET PO SCH (21:03)
[2021-09-23] VITALS (9 sets, daily range): BP systolic 97–170; BP diastolic 73–114
[2021-09-23 04:45] LABS: CALCIUM 9.5 MG/DL (8.5-10.1); CREATININE SERUM 1.81 MG/DL (0.60-1.30); POTASSIUM 4.1 MMOL/L (3.6-5.0)
[2021-09-23] MEDS: inSUlin ASPART (NovoLOG) 1 UNIT/0.01 ML (CHARGE PER UNIT) SC SCH ×3 (04:58→18:00)
[2021-09-23] MEDS: CATHETER FLUSH 10 ML SYR IV SCH ×2 (04:59→14:15)
[2021-09-23] MEDS: RT-ALBUTEROL SULF 2.5 MG/3 ML PRE-MIX VIAL INH SCH ×3 (07:34→15:19)
[2021-09-23] MEDS: doxAzosin 4 MG (CARDURA) TAB PO SCH (08:57)
[2021-09-23] MEDS: BISOPROLOL 10 MG PO SCH (08:58)
[2021-09-23] MEDS ORDERED: LOSARTAN 50 MG (COZAAR) TAB PO SCH ×2 (09:00)
[2021-09-23] MEDS: SENNA W/DOCUSATE (SENOKOT S) TABLET PO SCH (09:00)
[2021-09-23] MEDS ORDERED: PANTOPRAZOLE 40 MG (PROTONIX) TAB PO SCH (09:00)
[2021-09-23] MEDS ORDERED: CLOPIDOGREL 75 MG (PLAVIX) TABLET PO SCH (09:00)
[2021-09-23] MEDS ORDERED: FUROSEMIDE 20 MG (LASIX) TAB PO SCH (09:00)
[2021-09-23] MEDS ORDERED: ASPIRIN 81 MG CHEW (CHILDREN'S ASA) PO SCH (09:00)
[2021-09-23] MEDS ORDERED: ISOSORBIDE MONONITRATE 60 MG (IMDUR) TAB PO SCH (09:00)
[2021-09-23] MEDS ORDERED: REGADENOSON 0.4 MG/5 ML SYR (LEXISCAN) IV NR (09:00)
[2021-09-23] MEDS ORDERED: REGADENOSON 0.4 MG/5 ML SYR (LEXISCAN) IV ONE (12:06)
--- NOTE | 2021-09-23 14:51 | STRESS TEST ---
DATE OF SERVICE: 09/23/2021 RESTING AND POST REGADENOSON TECHNETIUM-99M TETROFOSMIN SPECT CT IMAGING ORDERING PHYSICIAN: Debbi Harmon APRN ATTENDING PHYSICIAN: Dr. Harding. OTHER PHYSICIAN: Dr. Esquivel. CLINICAL DIAGNOSIS: Chest discomfort. Baseline images were carried out after injection of 10.99 mCi of technetium-99m Tetrofosmin. This was followed by 0.4 mg regadenoson and 31.2 mCi of technetium-99m Tetrofosmin for stress imaging. The electrocardiogram showed sinus rhythm at baseline and it did not change significantly with the regadenoson infusion. The patient noted mild shortness of breath and nausea following regadenoson infusion, which resolved in a few minutes. Review of images at rest and following stress does not indicate any significant perfusion defects consistent with myocardial ischemia or infarction. Gated images show normal global left ventricular systolic function with normal regional wall motion. Left ventricular ejection fraction is calculated to be 70%. Left ventricular end-diastolic volume is 77 mL. CONCLUSIONS: 1. No evidence of any significant myocardial ischemia or infarction on this study. 2. Normal regional wall motion. 3. Normal global left ventricular systolic function with a calculated ejection fraction of 70%. Job ID: [id number] DocumentID: [id number] Dictated Date: 09/23/2021 14:14:34 Journeyman Lineman Date: 09/23/2021 14:51:03 Dictated By: CHRISTY ESQUIVEL MD, MA, FACP, FACC, MTDD
[2021-09-23] MEDS ORDERED: ISOS60TA63 PO (15:00)
--- NOTE | 2021-09-23 15:12 | Progress Note - Cardiology ---
Cardiology SOAP Progress Note Subjective: No cp or palp or syncope No shortness of breath at rest Malaise and weakness are now at their usual baseline No swelling Objective: I&O/Vital Signs 09/23/21 09/23/21 09/23/21 09/23/21 04:00 04:00 07:00 07:34 Temp 37.4 Pulse 80 74 Resp 18 B/P (MAP) 163/79 (107) Pulse Ox 93 93 92 O2 Delivery Room Air Room Air Room Air 09/23/21 09/23/21 09/23/21 09/23/21 07:46 08:45 12:12 14:34 Temp 35.8 Pulse 84 65 68 Resp 20 26 B/P (MAP) 170/84 (112) 152/73 (99) 97/84 (88) Pulse Ox 92 98 93 O2 Delivery Room Air Room Air Room Air 09/23/21 00:00 Intake Total 1240 ml Balance 1240 ml Weight (Pounds): 166 Weight (Ounces): 6.0 Weight (Calculated Kilograms): 75.968827 Constitutional: AAO x 3, well-developed, well-nourished Respiratory: No accessory muscle use, No respiratory distress; chest expansion is symmetric, chest is bilaterally symmetric Cardiovascular: regular rate-rhythm; No JVD; S1 and S2 Gastrointestional: No tender; soft, round, audible bowel sounds Extremities: no lower extremity edema bilateral Neurologic/Psychiatric: other (moves all limbs equally) Skin: No rash on exposed areas, No ulcerations on exposed areas Results/Procedures: Labs Laboratory Tests 09/22/21 15:44: Glucometer 155H 09/22/21 19:47: Glucometer 181H 09/23/21 04:18: Sodium Level 143, Potassium Level 4.1, Chloride Level 110H, Carbon Dioxide Level 18L, Anion Gap 15H, Blood Urea Nitrogen 42H, Creatinine 1.81H, Estimat Glomerular Filtration Rate 28, BUN/Creatinine Ratio 23, Glucose Level 132H, Calcium Level 9.5, Triglycerides Level 254H, Cholesterol Level 157, LDL Cholesterol Direct 94, VLDL Cholesterol 51H, HDL Cholesterol 24L 09/23/21 10:07: Glucometer 143H A/P: Assessment: Hypertension, labile - management complex because she worries and measures bp at home many times a day and adjusts meds. She has had some low bp readings Minimally elevated troponin - Type 2 PA secondary to uncontrolled HTN - MPI on 09/23/21: no ischemia or infarct CAD: - H/o cor stents (LAD and diag) with Dr Whitley. - Cardiac cath of October 16, 2019: Coronary artery disease consisting primarily of 70% in-stent restenosis of the left anterior descending (fractional flow reserve 0.8). To this, successful balloon angioplasty was carried out. The left anterior descending has approximately 50% bifurcation stenosis. The left circumflex artery has a 50% stenosis in its proximal to mid portion and 70% stenosis in its mid to distal portion and fractional flow reserve across a combination of these lesions is 0.89, indicating hemodynamic insignificance. Right coronary artery is dominant and has a patent stent in its distal portion. The right coronary artery has mild to moderate diffuse disease. Mildly elevated left ventricular end-diastolic pressure. - MPI of 04/02/20: no ischemia or infarction, LVEF 64% - MPI of 11/18/20: no ischemia or infarct, LVEF 62% - Echo of 11/16/20: LVEF 55-65%, mild MR and trivial AI, PASP 35-45 mmHg - Echo on 09/22/21: LVEF 55-60%, PASP 30 -35 mmHg - MPI on 09/23/21: no ischemia or infarct Renal artery stenosis - H/o bilateral renal artery stents with Dr Whitley. Mod bilat renal artery stenoses on renal a angio of 03/09/16 (Dr Vasquez) - Renal artery duplex on 06-25-21 at [facility] by Dr. Carrillo showed Renal arteries and veins are patent bilat. Patent stents bilat in the prox segments of the renal arteries with no evidence of flow acceleration to suggest hemodynamically signif stenosis. No high grade stenosis DM II - managed by PCP CKD 4, - probably diabetic nephropathy, followed and treated by her heel seam rubber Dr Ramirez Chronic back pain - managed by PCP Bilateral leg discomfort, - No evidence of PAD of the lower limbs, per segmentals of Mar 2020 Chronic tobacco use, - quit in 2011 COPD - managed by PCP AUDIE - treated with CPAP Myeloproliferative disorder - with leuckocytosis and thrombocytosis and chronic anemia - managed by [facility] [place], [place] Carotid dz: - Mild carotid art disease on carotid u/s of Mar 2020 No evidence of AAA per scan of Mar 2020 Chronic back pain and cervical radiculopathy - followed and treated by her spine surgeon Bilat leg swelling - due to venous insuff and, possibly, CCB therapy Multinodular thyroid goiter - followed by her oncologist ANN MARIE - refuses statin tx d/t reported intolerance Plan: Complex management issue for reasons noted above We have reviewed the records from [facility] and her BP logs (extensive BP logs) from home We have increased the Bisoprolol to 10mg BID for better bp control We changed the Imdur to 120mg once a day (she was taking twice a day) to avoid tachyphylaxis We have stopped the Lasix d/t normal LVEF on recent echo and no clinical evidence of CHF I had a detailed discussion with her and her and answered their CV- related questions Ok to d/c from cardiac standpoint Outpt f/u advised Clinical Quality Measures AMI/AHF: ASA po Prior to arrival: CHRISTY Pompa MD FACP FAC CCDS Sep 23, 2021 15:12
[2021-09-23] MEDS ORDERED: BISO10TA6 PO (16:50)
--- NOTE | 2021-09-23 18:33 | Discharge Summary ---
Discharge Summary Hospital Course Problems/Dx: (1) Hypertensive emergency Status: Acute (2) Elevated troponin Status: Acute (3) Chest pain Status: Acute Qualifiers: Qualified Codes: I25.9 - Chronic ischemic heart disease, unspecified Hospital Course Date of Admission: Sep 22, 2021 at 07:23 Admission Diagnosis : HTN emergency Family Physician/Provider: Rajwinder Perez MD Date of Discharge: 09/23/21 Discharge Diagnosis: HTN emergency Hospital Course: Mckenzie Huang is a 76 year old female with PMH HTN, T2DM, HLD, CAD, renal artery stenosis, CKD, COPD, AUDIE, myeloproliferative disorder, tobacco abuse, chronic back pain, who presented with chest pain and was admitted with hypertensive emergency. Her SBP was 250 on arrival. Her troponin was slightly elevated. Cardiology was consulted and assisted with her care. Her blood pressure medications were adjusted. Her Bisoprolol was increased. Her Imdur was decreased. Her Lasix was discontinued. Her blood pressures improved. She underwent a cardiac stress test which was negative for ischemia. She was discharged home in stable condition. She should follow up with her PCP in a week or two. Labs and Pending Lab Test: Laboratory Tests 09/22/21 19:47: Glucometer 181H 09/23/21 04:18: Sodium Level 143, Potassium Level 4.1, Chloride Level 110H, Carbon Dioxide Level 18L, Anion Gap 15H, Blood Urea Nitrogen 42H, Creatinine 1.81H, Estimat Glomerular Filtration Rate 28, BUN/Creatinine Ratio 23, Glucose Level 132H, Calcium Level 9.5, Triglycerides Level 254H, Cholesterol Level 157, LDL Cholesterol Direct 94, VLDL Cholesterol 51H, HDL Cholesterol 24L 09/23/21 10:07: Glucometer 143H Home Meds Active Bisoprolol Fumarate 10 Mg Tablet 10 Mg PO BID 30 Days Isosorbide Mononitrate ER (Isosorbide Mononitrate) 60 Mg Tab 120 Mg PO DAILY Reported Albuterol Sulfate 2.5 Mg/0.5 Ml Vial.neb 2.5 Mg INH Q6H PRN Ipratropium Byram 0.2 Mg/1 Ml Solution 0.2 Mg IH Q8H PRN Doxazosin Mesylate 4 Mg Tablet 8 Mg PO BID TAKES 2 (4MG) TABS Losartan Potassium 50 Mg Tablet 50 Mg PO BID Tylenol Extra Strength (Acetaminophen) 500 Mg Tablet 500-1,000 Mg PO Q6H PRN Aspirin EC (Aspirin) 81 Mg Tablet. 81 Mg PO DAILY Neurontin (Gabapentin) 300 Mg Capsule 300 Mg PO TID Clopidogrel (Clopidogrel Bisulfate) 75 Mg Tablet 75 Mg PO DAILY Glimepiride 4 Mg Tablet 4 Mg PO BID Pantoprazole Sodium 40 Mg Tablet. 40 Mg PO DAILY Assessment/Pt Instructions See instructions Discharge Planning: >30 minutes discharge planning Discharge Instructions Discharge Diet: ADA Diet Activity as Tolerated: Yes Consultations Cardiology Discharge Physical Examination Vital Signs Vital Signs Date Time Temp Pulse Resp B/P (MAP) Pulse Ox O2 Delivery O2 Flow Rate FiO2 09/23/21 17:58 35.8 68 17 135/109 92 Room Air 09/22/21 15:16 21 General Appearance: No Apparent Distress, Anxious Respiratory: Lungs Clear, No Respiratory Distress Cardiovascular: Regular Rate, Rhythm, No Murmur Gastrointestinal: Normal Bowel Sounds, Soft Extremity: Normal Inspection, No Pedal Edema Skin: Normal Color, Warm/Dry Neurologic/Psychiatric: Alert, Normal Mood/Affect Allergies: Coded Allergies: atorvastatin calcium (Unverified Allergy, Unknown, 07/27/16) cefdinir (Verified Allergy, Unknown, 09/01/17) codeine (Unverified Allergy, Unknown, 07/27/16) doxycycline (Verified Allergy, Unknown, 09/01/17) escitalopram oxalate (Unverified Allergy, Unknown, 07/27/16) niacin (Unverified Allergy, Unknown, 07/27/16) oxycodone (Verified Allergy, Unknown, 09/01/17) simvastatin (Unverified Allergy, Unknown, 07/27/16) tramadol (Unverified Allergy, Unknown, 07/27/16) acetaminophen (Verified Adverse Reaction, Mild, 10/17/19) TYLENOL WITH CODEINE MAKE PT ITCH. Copy Copies To 1: RAJWINDER PEREZ MD Discharge Summary Date of Admission Sep 22, 2021 at 07:23 Date of Discharge Sep 23, 2021 at 17:15 Discharge Date: Sep 23, 2021 Discharge Time: 17:15 Admission Diagnosis Hypertensive emergency Consults/Procedures Consulations Cardiology Procedures MPI Discharge Diagnosis HTN emergency Essential hypertension Elevated troponin Coronary artery disease (1) Hypertensive emergency Status: Acute (2) Elevated troponin Status: Acute (3) Chest pain Status: Acute Qualifiers: Qualified Codes: I25.9 - Chronic ischemic heart disease, unspecified Clinical Quality Measures AMI/AHF: ASA po Prior to arrival: DALI Ramires MD Sep 23, 2021 18:32
== END 2021-09-23 17:15 | disposition home or self-care (01) ==
LOC: EDUNIT# 02:45 → ER 02:47 → CSD 07:23
PROVIDERS: ADMIT Internal Medicine; ATTEND Internal Medicine
DX: I16.1 Hypertensive emergency (principal); I12.9 Hypertensive chronic kidney disease with stage 1 through stage 4 chronic kidney disease, or unspecified chronic kidney disease; N18.4 Chronic kidney disease, stage 4 (severe); I21.A1 Myocardial infarction type 2; C94.6 Myelodysplastic disease, not elsewhere classified; E11.9 Type 2 diabetes mellitus without complications; I25.10 Atherosclerotic heart disease of native coronary artery without angina pectoris; F41.9 Anxiety disorder, unspecified; M54.12 Radiculopathy, cervical region; I70.1 Atherosclerosis of renal artery; I87.2 Venous insufficiency (chronic) (peripheral); G47.33 Obstructive sleep apnea (adult) (pediatric); J44.9 Chronic obstructive pulmonary disease, unspecified; Z87.891 Personal history of nicotine dependence; Z95.5 Presence of coronary angioplasty implant and graft; Z95.820 Peripheral vascular angioplasty status with implants and grafts; Z79.84 Long term (current) use of oral hypoglycemic drugs; Z79.82 Long term (current) use of aspirin; Z88.1 Allergy status to other antibiotic agents; Z88.5 Allergy status to narcotic agent; Z88.8 Allergy status to other drugs, medicaments and biological substances
CPT/HCPCS: 71045; 78452; 80048; 80053; 80061; 82947 ×2; 83690; 83735; 83874; 83880; 84484; 85025; 85610; 85730; 93005; 93017; 93306; 94640 ×2; 94664; 96372; 96374; 96375; 96376; 99284; A9502; 36415

== ENCOUNTER 2021-09-29 11:53 | Outpatient (RCR) | payer MEDICARE, OTHER ==
[~2021-09-29 11:53] MED LIST changes: +DOXA4TAB2 PO; +IPRA0.2S51 IH; +LOSA50TA63 PO
== END 2021-10-25 | disposition home or self-care (01) ==
LOC: ONC 11:53
PROVIDERS: ATTEND Internal Medicine
DX: C94.6 Myelodysplastic disease, not elsewhere classified (principal); I10 Essential (primary) hypertension; E11.9 Type 2 diabetes mellitus without complications; E78.5 Hyperlipidemia, unspecified; J44.9 Chronic obstructive pulmonary disease, unspecified; Z86.2 Personal history of diseases of the blood and blood-forming organs and certain disorders involving the immune mechanism
CPT/HCPCS: 99214

== ENCOUNTER 2021-11-13 10:35 | Emergency (ER) | payer MEDICARE, OTHER ==
[~2021-11-13] VITALS: Ht 160 cm; Wt 74.8 kg
[2021-11-13 11:22] LABS: BASOPHILS # (AUTO) 0.1 10^3/uL (0.0-0.1); BASOPHILS % (AUTO) 1 % (0-10); EOSINOPHILS # (AUTO) 0.3 10^3/uL (0.0-0.3); EOSINOPHILS % (AUTO) 2 % (0-10); HEMATOCRIT 38 % (35-52); HEMOGLOBIN 12.3 g/dL (11.5-16.0); LYMPHOCYTES # (AUTO) 1.1 10^3/uL (1.0-4.0); LYMPHOCYTES % (AUTO) 9 % (12-44); MEAN CORPUSCULAR HEMOGLOBIN 31 pg (25-34); MEAN CORPUSCULAR HGB CONC 32 g/dL (32-36); MEAN CORPUSCULAR VOLUME 95 fL (80-99); MEAN PLATELET VOLUME 9.9 fL (9.0-12.2); MONOCYTES # (AUTO) 0.5 10^3/uL (0.0-1.0); MONOCYTES % (AUTO) 4 % (0-12); NEUTROPHILS # (AUTO) 10.1 10^3/uL (1.8-7.8); NEUTROPHILS % (AUTO) 83 % (42-75); PLATELET COUNT 334 10^3/uL (130-400); WHITE BLOOD COUNT 12.2 10^3/uL (4.3-11.0)
--- NOTE | 2021-11-13 11:23 | Diagnostic Imaging Report ---
INDICATION: Chest pain. Compared 09/22/2021 FINDINGS: The lungs are clear. There is no failure, effusion, or pneumothorax. IMPRESSION: No acute appearing abnormality Dictated by: Dictated on workstation # [id number]
[2021-11-13 11:30] LABS: ALBUMIN 4.1 GM/DL (3.2-4.5); POTASSIUM 4.3 MMOL/L (3.6-5.0)
[2021-11-13 11:31] LABS: CALCIUM 9.4 MG/DL (8.5-10.1)
[2021-11-13 11:32] LABS: PROTHROMBIN TIME PATIENT 13.6 SEC (12.2-14.7)
[2021-11-13 11:33] LABS: TOTAL PROTEIN 6.9 GM/DL (6.4-8.2)
[2021-11-13 11:34] LABS: BILIRUBIN,TOTAL 0.5 MG/DL (0.1-1.0)
[2021-11-13 11:36] LABS: CREATININE SERUM 1.55 MG/DL (0.60-1.30)
[2021-11-13 11:39] LABS: MAGNESIUM 1.9 MG/DL (1.6-2.4)
[2021-11-13] MEDS ORDERED: hydrALAZINE (APESOLINE) 20 MG/ML VIAL IV ONE (12:00)
--- NOTE | 2021-11-13 12:00 | ED Respiratory ---
General Chief Complaint: Respiratory Problems Stated Complaint: SOA Source: patient Exam Limitations: no limitations (SHY FELIX) History of Present Illness Date Seen by Provider: November 13, 2021 Time Seen by Provider: 11:59 Initial Comments Patient is a 76-year-old female with a history of coronary artery disease, hypertension who presents to ED for abnormal blood pressure readings. She has a history of labile hypertension currently on doxazosin and Bisoprolol. Patient states she checks her blood pressure frequently. She states she has been short of breath over the past several years increased with the past 2 to 3 weeks. Increased leg swelling bilateral over the past few weeks. She does take Lasix as needed and when she does accumulate fluid. History of coronary artery disease and she states CHF. Patient reports intermittent chest pain. No current chest pain at this time. Intermittent dizziness without any dizziness, headache, visual changes, unilateral muscle weakness or sensory changes. She states she does have intermittent spells where she does get dizzy with walking but nothing currently. Denies fever, vomiting, diarrhea, chills, chest pain, shortness of breath. She states she called Dr. Fernandes's office to get a refill of her blood pressure medication but they told her to come to their ED secondary to abnormal blood pressure readings (SHY FELIX) Allergies and Home Medications Allergies Coded Allergies: atorvastatin calcium (Unverified Allergy, Unknown, 07/27/16) cefdinir (Verified Allergy, Unknown, 09/01/17) codeine (Unverified Allergy, Unknown, 07/27/16) doxycycline (Verified Allergy, Unknown, 09/01/17) escitalopram oxalate (Unverified Allergy, Unknown, 07/27/16) niacin (Unverified Allergy, Unknown, 07/27/16) oxycodone (Verified Allergy, Unknown, 09/01/17) simvastatin (Unverified Allergy, Unknown, 07/27/16) tramadol (Unverified Allergy, Unknown, 07/27/16) acetaminophen (Verified Adverse Reaction, Mild, 10/17/19) TYLENOL WITH CODEINE MAKE PT ITCH. Patient Home Medication List Home Medication List Reviewed: Yes (SHY FELIX) Acetaminophen (Tylenol Extra Strength) 500 Mg Tablet, 500-1,000 MG PO Q6H PRN for PAIN-MILD (1-4), (Reported) Entered as Reported by: LINDA HESS on 10/07/20 1538 Albuterol Sulfate (Albuterol Sulfate) 2.5 Mg/0.5 Ml Vial.neb, 2.5 MG INH Q6H PRN for SHORTNESS OF BREATH, (Reported) Entered as Reported by: LINDA HESS on 09/22/21 1028 Aspirin (Aspirin EC) 81 Mg Tablet.dr, 81 MG PO DAILY, (Reported) Entered as Reported by: LINDA HESS on 10/07/20 1538 Bisoprolol Fumarate (Bisoprolol Fumarate) 10 Mg Tablet, 10 MG PO BID Prescribed by: BART SMITH on 09/23/21 1650 Bisoprolol Fumarate (Bisoprolol Fumarate) 10 Mg Tablet, 10 MG PO BID Prescribed by: JACQUELINE ARZATE on 11/13/21 1431 Clopidogrel Bisulfate (Clopidogrel) 75 Mg Tablet, 75 MG PO DAILY, (Reported) Entered as Reported by: LINDA HESS on 10/07/20 1538 Doxazosin Mesylate (Doxazosin Mesylate) 4 Mg Tablet, 8 MG PO BID, (Reported) Entered as Reported by: LINDA HESS on 09/22/21 1020 Doxazosin Mesylate (Doxazosin Mesylate) 8 Mg Tablet, 8 MG PO BID Prescribed by: JACQUELINE ARZATE on 11/13/21 1431 Gabapentin (Neurontin) 300 Mg Capsule, 300 MG PO TID, (Reported) Entered as Reported by: LINDA HESS on 10/07/20 1538 Glimepiride (Glimepiride) 4 Mg Tablet, 4 MG PO BID, (Reported) Entered as Reported by: MAIK SEGOVIA on 10/17/19 0854 Ipratropium [place] (Ipratropium [place]) 0.2 Mg/1 Ml Solution, 0.2 MG IH Q8H PRN for SHORTNESS OF BREATH, (Reported) Entered as Reported by: LINDA HESS on 09/22/21 1028 Isosorbide Mononitrate (Isosorbide Mononitrate ER) 60 Mg Tab, 120 MG PO DAILY Prescribed by: JENNIFER COTTER on 09/23/21 1500 Losartan Potassium (Losartan Potassium) 50 Mg Tablet, 50 MG PO BID, (Reported) Entered as Reported by: LINDA HESS on 09/22/21 1020 Pantoprazole Sodium (Pantoprazole Sodium) 40 Mg Tablet.dr, 40 MG PO DAILY, (Reported) Entered as Reported by: TERESA BATES on 10/04/18 0912 Review of Systems Review of Systems Constitutional: No chills, No diaphoresis EENTM: No blurred vision, No double vision Respiratory: No cough, No dyspnea on exertion; short of breath Cardiovascular: chest pain Gastrointestinal: No abdominal pain, No diarrhea, No nausea, No vomiting Musculoskeletal: No back pain, No joint pain Skin: No change in color, No change in hair/nails Psychiatric/Neurological: Denies Depressed, Denies Emotional Problems Hematologic/Lymphatic: Denies Anemia (SHY FELIX) All Other Systems Reviewed Negative Unless Noted: Yes (SHY FELIX) Past Iqvwftc-Otobqb-Hesjjz Hx Patient Social History Tobacco Use?: No Smoking Status: Former Smoker Use of E-Cig and/or Vaping dev: No Substance use?: No Alcohol Use?: No (SHY FELIX) Immunizations Up To Date Tetanus Booster (TDap): Less than 5yrs PED Vaccines UTD: No First/Initial COVID19 Vaccinat: 09/02/2020 Second COVID19 Vaccination [place]: 09/26/2020 Third COVID19 Vaccination Date: 2021 COVID19 Vaccine Stuffer: GERRY (SHY FELIX) Seasonal Allergies Seasonal Allergies: No (SHY FELIX) Past Medical History Surgery/Hospitalization HX: CARDIAC CATHS--STENTS X 4 IN HEART, LEFT RENAL ARTERY STENTS X 3, RIGHT RENAL ARTERY STENTS X 2, CHF, CKD, LEUKOCYTOSIS Surgeries: Yes Bladder Surgery, Coronary Stent, Gallbladder, Hysterectomy, Orthopedic, Tonsillectomy, Vascular Surgery Respiratory: Yes Sleep Apnea, COPD Currently Using CPAP: Yes Cardiac: Yes (CHF) Chronic Edema/Swelling, Coronary Artery Disease, High Cholesterol, Hypertension, Peripheral Vascular Neurological: Yes Neuropathy Reproductive Disorders: No Female Reproductive Disorders: Denies Sexually Transmitted Disease: No HIV/AIDS: No Genitourinary: Yes (CHRONIC INCONTINENCE; RENAL ARTERY STENOSIS) Renal Failure Gastrointestinal: Yes Chronic Diarrhea, Polyps Musculoskeletal: Yes (, CERVICAL STENOSIS) Degenerate Disk Disease, Fibromyalgia Endocrine: Yes (history of thyroid nodules) Adrenal Disease, Diabetes, Non-Insulin dep HEENT: Yes Loss of Vision: Bilateral Hearing Impairment: Hard of Hearing Psychosocial: No Integumentary: No Blood Disorders: Yes (ANEMIA; MYELOPROLIFERATIVE DISORDER) Adverse Reaction/Blood Tranf: No (SHY FELIX) Family Medical History Heart Disease, Cancer, CAD Over 55 Years Old, Stroke Non-contributory (SHY FELIX) Physical Exam Vital Signs - First Documented 11/13/21 10:55 Temp 36.3 Pulse 63 Resp 20 B/P (MAP) 206/109 (141) Pulse Ox 94 O2 Delivery Room Air (BRADEN GOMES MD) Capillary Refill : (SHY FELIX) Height: 5'2.00" Weight: 166lbs. 6.0oz. [id number]; 29.85 BMI Method:Stated General Appearance: WD/WN, no apparent distress Eyes: Bilateral Eye Normal Inspection, Bilateral Eye PERRL, Bilateral Eye EOMI HEENT: PERRL/EOMI, normal ENT inspection, TMs normal, pharynx normal Neck: non-tender, full range of motion, supple, normal inspection Respiratory: chest non-tender, lungs clear, normal breath sounds, no respiratory distress, no accessory muscle use Cardiovascular: regular rate, rhythm, no edema, no gallop, no JVD Gastrointestinal: normal bowel sounds, non tender, soft, no organomegaly Extremities: normal range of motion, non-tender, normal inspection, no pedal edema Neurologic/Psychiatric: director of sustainable design II-XII nml as tested, no motor/sensory deficits, alert, normal mood/affect, oriented x 3 Skin: normal color, warm/dry (SHY FELIX) Progress/Results/Core Measures Suspected Sepsis SIRS Temperature: Pulse: Respiratory Rate: Laboratory Tests 11/13/21 11:09: White Blood Count 12.2H Blood Pressure / Mean: Laboratory Tests 11/13/21 11:09: Creatinine 1.55H, INR Comment 1.0, Platelet Count 334, Total Bilirubin 0.5 (SHY FELIX) Results/Orders Lab Results Laboratory Tests Test 11/13/21 11:09 11/13/21 13:50 Range/Units White Blood Count 12.2 H 4.3-11.0 10^3/uL Red Blood Count 4.03 3.80-5.11 10^6/uL Hemoglobin 12.3 11.5-16.0 g/dL Hematocrit 38 35-52 % Mean Corpuscular Volume 95 80-99 fL Mean Corpuscular Hemoglobin 31 25-34 pg Mean Corpuscular Hemoglobin Concent 32 32-36 g/dL Red Cell Distribution Width 14.0 10.0-14.5 % Platelet Count 334 130-400 10^3/uL Mean Platelet Volume 9.9 9.0-12.2 fL Immature Granulocyte % (Auto) 1 % Neutrophils (%) (Auto) 83 H 42-75 % Lymphocytes (%) (Auto) 9 L 12-44 % Monocytes (%) (Auto) 4 0-12 % Eosinophils (%) (Auto) 2 0-10 % Basophils (%) (Auto) 1 0-10 % Neutrophils # (Auto) 10.1 H 1.8-7.8 10^3/uL Lymphocytes # (Auto) 1.1 1.0-4.0 10^3/uL Monocytes # (Auto) 0.5 0.0-1.0 10^3/uL Eosinophils # (Auto) 0.3 0.0-0.3 10^3/uL Basophils # (Auto) 0.1 0.0-0.1 10^3/uL Immature Granulocyte # (Auto) 0.1 0.0-0.1 10^3/uL Prothrombin Time 13.6 12.2-14.7 SEC INR Comment 1.0 0.8-1.4 Activated Partial Thromboplast Time 32 24-35 SEC Sodium Level 140 135-145 MMOL/L Potassium Level 4.3 3.6-5.0 MMOL/L Chloride Level 106 98-107 MMOL/L Carbon Dioxide Level 22 21-32 MMOL/L Anion Gap 12 5-14 MMOL/L Blood Urea Nitrogen 34 H 7-18 MG/DL Creatinine 1.55 H 0.60-1.30 MG/DL Estimat Glomerular Filtration Rate 34 BUN/Creatinine Ratio 22 Glucose Level 151 H 70-105 MG/DL Calcium Level 9.4 8.5-10.1 MG/DL Corrected Calcium 9.3 8.5-10.1 MG/DL Magnesium Level 1.9 1.6-2.4 MG/DL Total Bilirubin 0.5 0.1-1.0 MG/DL Aspartate Amino Transf (AST/SGOT) 19 5-34 U/L Alanine Aminotransferase (ALT/SGPT) 11 0-55 U/L Alkaline Phosphatase 74 40-136 U/L Myoglobin 72.7 10.0-92.0 NG/ML Troponin I < 0.028 < 0.028 <0.028 NG/ML C-Reactive Protein High Sensitivity 0.81 H 0.00-0.50 MG/DL B-Type Natriuretic Peptide 383.6 H <100.0 PG/ML Total Protein 6.9 6.4-8.2 GM/DL Albumin 4.1 3.2-4.5 GM/DL (BRADEN GOMES MD) My Orders Orders - BRADEN GOMES MD Cbc With Automated Diff (11/13/21 10:49) Magnesium (11/13/21 10:49) Chest 1 View, Ap/Pa Only (11/13/21 10:49) Ekg Tracing (11/13/21 10:49) Comprehensive Metabolic Panel (11/13/21 10:49) Myoglobin Serum (11/13/21 10:49) Protime With Inr (11/13/21 10:49) Partial Thromboplastin Time (11/13/21 10:49) O2 (11/13/21 10:49) Monitor-Rhythm Ecg Trace Only (11/13/21 10:49) Ed Iv/Invasive Line Start (11/13/21 10:49) Bnp Madh[place] (11/13/21 10:49) Troponin I [place] (11/13/21 10:49) Hs C Reactive Protein (11/13/21 10:49) (BRADEN GOMES MD) Medications Given in ED Current Medications Medications Dose Ordered Sig/Syl Route Start Time Stop Time Status Last Admin Dose Admin Hydralazine HCl 10 mg ONCE ONCE IV 11/13/21 12:00 11/13/21 12:01 DC 11/13/21 12:25 10 MG Nitroglycerin 0.5 inch ONCE ONCE TOP 11/13/21 12:45 11/13/21 12:49 DC 11/13/21 13:06 0.5 INCH (BRADEN GOMES MD) Vital Signs/I&O 11/13/21 11/13/21 10:55 14:41 Temp 36.3 36.3 Pulse 63 63 Resp 20 18 B/P (MAP) 206/109 (141) 171/75 Pulse Ox 94 96 O2 Delivery Room Air Room Air (BRADEN GOMES MD) Vital Signs/I&O Capillary Refill : (SHY FELIX) Departure Communication (PCP) Patient is a 76-year-old female with a history of hypertension who presents ED for elevated blood pressure. History of labile hypertension has been seen here multiple times. Currently on losartan, amlodipine, bisoprolol, doxasin and currently being managed by Dr. Fernandes cardiology. She states that she is also seen a physician in [place] secondary to uncontrolled blood pressure. Family states that they were sent over here for further evaluation by Dr. Fernandes [facility]. Patient was hypertensive as high as 230/92. Patient Was given hydralazine without significant provement. Patient was given Nitropaste with improvement. Patient was currently asymptomatic. Denies headache, visual changes, chest pain. She states she has been having intermittent shortness of breath over the past several years worse over the past 2 or 3 weeks with leg swelling. She does have some leg swelling and started taking 20 mg of Lasix which she has done in the past. She had a cardiac stress performed late August for no evidence of significant myocardial ischemia or infarction. Normal regional wall motion. Normal global left ventricular systolic function with calculation ejection fraction of 70%. Serial troponin negative. Slight elevated BNP but stable. Chest x-ray negative for pleural effusion. She is not hypoxic or tachycardic lab work was otherwise unremarkable besides chronic kidney disease with stable creatinine and GFR. slight elevated white blood count. Chest x-ray unremarkable. Patient feeling much better at this time and will be discharged. Recommend follow-up with your primary care physician or medical lab tech instructor for further management of blood pressure. If any worsening symptoms return back to ED. (SHY FELIX) Impression Primary Impression: Elevated blood pressure reading Disposition: HOME, SELF-CARE Condition: Stable Departure-Patient Inst. Decision time for Depature: 14:29 (SHY FELIX) Referrals: RAJWINDER CARVAJAL MD (PCP/Family) Primary Care Physician Patient Instructions: High Blood Pressure ED Scripts Bisoprolol Fumarate (Bisoprolol Fumarate) 10 Mg Tablet 10 MG PO BID, #20 TAB Prov: SHY FELIX 11/13/21 Doxazosin Mesylate (Doxazosin Mesylate) 8 Mg Tablet 8 MG PO BID, #20 TAB Prov: SHY FELIX 11/13/21 ATTENDING PHYSICIAN NOTE: I was physically present as attending physician in the emergency department during the care of this patient, but I was not directly involved in the decision making or delivery of care for this patient. (BRADEN GOMES MD) SHY FELIX November 13, 2021 12:00 BRADEN GOMES MD November 13, 2021 20:05
[2021-11-13] MEDS ORDERED: NITROGLYCERIN 2% OINT 1 GM UNIT DOSE PACKET TOP ONE (12:45)
[2021-11-13] MEDS ORDERED: DOXA8TAB73 PO (14:31)
[2021-11-13] MEDS ORDERED: BISO10TA6 PO (14:31)
[2021-11-13 14:41] VITALS: BP 171/75
== END 2021-11-13 14:42 | disposition home or self-care (01) ==
LOC: EDUNIT# 10:35 → ER 10:36
DX: I10 Essential (primary) hypertension (principal); G47.30 Sleep apnea, unspecified; J44.9 Chronic obstructive pulmonary disease, unspecified; Z87.891 Personal history of nicotine dependence; Z99.89 Dependence on other enabling machines and devices; Z79.899 Other long term (current) drug therapy
CPT/HCPCS: 36415; 71045; 80053; 83735; 83874; 83880; 84484; 85025; 85610; 85730; 86141; 93005; 93041

== ENCOUNTER 2022-04-13 10:09 | Outpatient (RCR) | payer MEDICARE, OTHER ==
[2022-04-06 11:46] LABS: BASOPHILS # (AUTO) 0.1 10^3/uL (0.0-0.1); BASOPHILS % (AUTO) 1 % (0-10); EOSINOPHILS # (AUTO) 0.3 10^3/uL (0.0-0.3); EOSINOPHILS % (AUTO) 3 % (0-10); HEMATOCRIT 39 % (35-52); HEMOGLOBIN 12.5 g/dL (11.5-16.0); LYMPHOCYTES # (AUTO) 0.8 10^3/uL (1.0-4.0); LYMPHOCYTES % (AUTO) 8 % (12-44); MEAN CORPUSCULAR HEMOGLOBIN 31 pg (25-34); MEAN CORPUSCULAR HGB CONC 32 g/dL (32-36); MEAN CORPUSCULAR VOLUME 97 fL (80-99); MEAN PLATELET VOLUME 9.7 fL (9.0-12.2); MONOCYTES # (AUTO) 0.3 10^3/uL (0.0-1.0); MONOCYTES % (AUTO) 3 % (0-12); NEUTROPHILS % (AUTO) 85 % (42-75); PLATELET COUNT 339 10^3/uL (130-400); WHITE BLOOD COUNT 10.6 10^3/uL (4.3-11.0)
[2022-04-06 12:08] LABS: BILIRUBIN,TOTAL 0.4 MG/DL (0.1-1.0); CALCIUM 9.4 MG/DL (8.5-10.1); CREATININE SERUM 1.9 MG/DL (0.60-1.30); POTASSIUM 4.3 MMOL/L (3.6-5.0); TOTAL PROTEIN 6.7 GM/DL (6.4-8.2)
[~2022-04-13 10:09] MED LIST changes: +LEVO250T66 PO; -LVF250T PO
== END 2022-04-27 | disposition home or self-care (01) ==
LOC: ONC 10:09
PROVIDERS: ATTEND Internal Medicine
DX: C94.6 Myelodysplastic disease, not elsewhere classified (principal); E78.5 Hyperlipidemia, unspecified; J44.9 Chronic obstructive pulmonary disease, unspecified; E11.22 Type 2 diabetes mellitus with diabetic chronic kidney disease; I12.9 Hypertensive chronic kidney disease with stage 1 through stage 4 chronic kidney disease, or unspecified chronic kidney disease; N18.4 Chronic kidney disease, stage 4 (severe); Z86.2 Personal history of diseases of the blood and blood-forming organs and certain disorders involving the immune mechanism
CPT/HCPCS: 36415; 80053; 82728; 83540; 83550; 83615; 85025; 99213

== ENCOUNTER 2022-10-05 10:37 | Outpatient (RCR) | payer MEDICARE, OTHER ==
[2022-10-05 11:00] LABS: BASOPHILS # (AUTO) 0.1 10^3/uL (0.0-0.1); BASOPHILS % (AUTO) 1 % (0-10); EOSINOPHILS # (AUTO) 0.5 10^3/uL (0.0-0.3); EOSINOPHILS % (AUTO) 4 % (0-10); HEMATOCRIT 38 % (35-52); HEMOGLOBIN 12.4 g/dL (11.5-16.0); LYMPHOCYTES # (AUTO) 1.2 10^3/uL (1.0-4.0); LYMPHOCYTES % (AUTO) 10 % (12-44); MEAN CORPUSCULAR HEMOGLOBIN 32 pg (25-34); MEAN CORPUSCULAR HGB CONC 33 g/dL (32-36); MEAN CORPUSCULAR VOLUME 97 fL (80-99); MEAN PLATELET VOLUME 10.4 fL (9.0-12.2); MONOCYTES # (AUTO) 0.6 10^3/uL (0.0-1.0); MONOCYTES % (AUTO) 5 % (0-12); NEUTROPHILS # (AUTO) 9.3 10^3/uL (1.8-7.8); NEUTROPHILS % (AUTO) 80 % (42-75); PLATELET COUNT 341 10^3/uL (130-400); WHITE BLOOD COUNT 11.6 10^3/uL (4.3-11.0)
[2022-10-05 11:19] LABS: BILIRUBIN,TOTAL 0.3 MG/DL (0.1-1.0); CALCIUM 9.5 MG/DL (8.5-10.1); CREATININE SERUM 1.83 MG/DL (0.60-1.30); POTASSIUM 4.4 MMOL/L (3.6-5.0); TOTAL PROTEIN 6.6 GM/DL (6.4-8.2)
== END 2022-10-12 09:46 | disposition home or self-care (01) ==
LOC: ONC 10:37
PROVIDERS: ATTEND Internal Medicine Hematology & Oncology
DX: C94.6 Myelodysplastic disease, not elsewhere classified (principal); I10 Essential (primary) hypertension; E78.5 Hyperlipidemia, unspecified; E11.9 Type 2 diabetes mellitus without complications; Z86.2 Personal history of diseases of the blood and blood-forming organs and certain disorders involving the immune mechanism; Z72.0 Tobacco use
CPT/HCPCS: 36415; 80053; 82728; 83540; 83550; 83615; 85025

== ENCOUNTER → 2022-10-12 | Outpatient (CLI) | payer MEDICARE, OTHER | LOC: ONC 09:49 | PROVIDERS: ATTEND Internal Medicine Hematology & Oncology | DX: C94.6 Myelodysplastic disease, not elsewhere classified (principal); I10 Essential (primary) hypertension; E78.5 Hyperlipidemia, unspecified; Z86.2 Personal history of diseases of the blood and blood-forming organs and certain disorders involving the immune mechanism ==

== ENCOUNTER 2023-02-03 12:56 | Outpatient (RCR) | payer MEDICARE, OTHER ==
[~2023-02-03 12:56] MED LIST changes: -LOSA100T57 PO; +LOSA100T58 PO
[2023-02-20] MEDS ORDERED: BISO10TA6 PO (11:36)
[2023-02-20] MEDS ORDERED: GLIM4TAB5 PO (11:36)
[2023-02-20] MEDS ORDERED: DOXA2TAB2 PO (11:36)
[2023-02-20] MEDS ORDERED: DOXA4TAB2 PO (11:36)
[2023-02-20] MEDS ORDERED: ISOS120T9 PO (11:36)
[2023-02-22] MEDS ORDERED: RT-ALBUINH PO (08:59)
[2023-02-22] MEDS ORDERED: AMLO-250 PO (08:59)
[2023-02-22] MEDS ORDERED: COLC0.6T59 PO (08:59)
[2023-02-22] MEDS ORDERED: ALLO100T PO (08:59)
[2023-02-22] MEDS ORDERED: ALPR0.254 PO (08:59)
[2023-02-22] MEDS ORDERED: HYDR-3817 PO (17:18)
[2023-02-23] MEDS ORDERED: CIPR500T5 PO (17:52)
[2023-02-23] MEDS ORDERED: METR-145 PO (17:52)
== END 2023-02-25 | disposition home or self-care (01) ==
LOC: ONC 12:56
PROVIDERS: ATTEND Internal Medicine Hematology & Oncology
DX: C94.6 Myelodysplastic disease, not elsewhere classified (principal); I10 Essential (primary) hypertension
CPT/HCPCS: 99214

== ENCOUNTER 2023-02-20 00:27 | Inpatient (IN) | payer MEDICARE ==
[~2023-02-20] VITALS: Ht 157.5 cm; Wt 71.4 kg
[2023-02-20] VITALS (9 sets, daily range): BP systolic 170–204; BP diastolic 60–107
[2023-02-20 01:26] LABS: BASOPHILS # (AUTO) 0.1 10^3/uL (0.0-0.1); BASOPHILS % (AUTO) 1 % (0-10); EOSINOPHILS # (AUTO) 0.3 10^3/uL (0.0-0.3); EOSINOPHILS % (AUTO) 2 % (0-10); HEMATOCRIT 38 % (35-52); HEMOGLOBIN 12.1 g/dL (11.5-16.0); LYMPHOCYTES % (AUTO) 6 % (12-44); MEAN CORPUSCULAR HEMOGLOBIN 32 pg (25-34); MEAN CORPUSCULAR HGB CONC 32 g/dL (32-36); MEAN CORPUSCULAR VOLUME 99 fL (80-99); MEAN PLATELET VOLUME 10.5 fL (9.0-12.2); MONOCYTES # (AUTO) 0.8 10^3/uL (0.0-1.0); MONOCYTES % (AUTO) 5 % (0-12); NEUTROPHILS # (AUTO) 14.7 10^3/uL (1.8-7.8); NEUTROPHILS % (AUTO) 86 % (42-75); PLATELET COUNT 419 10^3/uL (130-400); WHITE BLOOD COUNT 17.1 10^3/uL (4.3-11.0)
[2023-02-20 01:31] LABS: ALBUMIN 4.1 GM/DL (3.2-4.5); POTASSIUM 4.1 MMOL/L (3.6-5.0)
[2023-02-20 01:32] LABS: CALCIUM 9.9 MG/DL (8.5-10.1)
[2023-02-20 01:33] LABS: TOTAL PROTEIN 7.1 GM/DL (6.4-8.2)
[2023-02-20 01:35] LABS: BILIRUBIN,TOTAL 0.4 MG/DL (0.1-1.0)
[2023-02-20 01:37] LABS: CREATININE SERUM 1.45 MG/DL (0.60-1.30)
[2023-02-20 01:38] LABS: EOSINOPHILS % (MANUAL) 1 %; LYMPHOCYTES % (MANUAL) 10 %; MONOCYTES % (MANUAL) 2 %; NEUTROPHILS % (MANUAL) 87 %
--- NOTE | 2023-02-20 01:45 | ED General ---
General Chief Complaint: General Problems/Pain Stated Complaint: CP/SOB Nursing Triage Note: PT AMBULATORY TO ROOM. STATES SHE HAS HAD RIGHT SIDED PAIN THAT RADIATES TO BACK AND LOW BACK. STATES THIS HAS BEEN GOING ON A COUPLE WEEKS BUT HAS WORSENED IN LAST COUPLE DAYS. STATES SHE HAS BEEN TAKING TYLENOL AROUND THE CLOCK AND THIS HELPS WITH PAIN SOME. PT REPORTS SHE HAS STAGE 3 RENAL FAILURE, COPD, CHF, AND DIABETES. PT IS SOB ON ARRIVAL. STATES SHE IS ALWAYS SOB DUE TO COPD. PT STATES SHE DOES ALBUTEROL INHALERS AT HOME. PT DENIES ANY NEW, WORSENING SOB AND DENIES HAVING ANY CHEST PAIN. PT IS A&OX4, SPEECH NORMAL ON ARRIVAL Source of Information: Patient, Family History of Present Illness Date Seen by Provider: Feb 20, 2023 Time Seen by Provider: 01:00 Initial Comments Patient is a 77-year-old presents to the emergency room with a chief complaint of right-sided flank pain and back pain. The pain seems to radiate into her lower abdomen. Patient states she has had this mildly for about 2 weeks. It has worsened significantly over the course of the last 2 days. She has medical history significant for stage III kidney failure, COPD, CHF and diabetes. She does endorse some shortness of breath. She states her shortness of breath is no different than usual. She denies chest pain. She has had decreased appetite. No vomiting. Denies any problems with bowel or bladder, no dysuria, urgency or frequency. No fever that she is aware of. She states the pain comes in waves and when it worsens it is a "10". Currently the pain is mild to moderate, she is able to rest comfortably in the bed. She has a history of cholecystectomy, thinks that her appendix has been removed but is not sure Timing/Duration: Other (2 weeks; worse in the last 24 hours) Severity: Severe ("10" at its worst; "5" currently) Modifying Factors: improves with Other (constant) Associated Systoms: Denies Symptoms Allergies and Home Medications Allergies Coded Allergies: atorvastatin calcium (Unverified Allergy, Unknown, 07/27/16) cefdinir (Verified Allergy, Unknown, 09/01/17) codeine (Unverified Allergy, Unknown, 07/27/16) doxycycline (Verified Allergy, Unknown, 09/01/17) escitalopram oxalate (Unverified Allergy, Unknown, 07/27/16) niacin (Unverified Allergy, Unknown, 07/27/16) oxycodone (Verified Allergy, Unknown, 09/01/17) simvastatin (Unverified Allergy, Unknown, 07/27/16) tramadol (Unverified Allergy, Unknown, 07/27/16) Patient Home Medication List Home Medication List Reviewed: Yes ALPRAZolam (ALPRAZolam) 0.25 Mg Tablet, 0.25 MG PO DAILY PRN for ANXIETY, (Reported) Entered as Reported by: BINA TSE on 02/22/23858 Last Action: Reviewed Acetaminophen (Tylenol Extra Strength) 500 Mg Tablet, 500-1,000 MG PO Q6H PRN for PAIN-MILD (1-4), (Reported) Entered as Reported by: LINDA HESS on 10/07/201537 Last Action: Reviewed Albuterol Sulfate (Albuterol Sulfate) 2.5 Mg/0.5 Ml Vial.neb, 2.5 MG INH Q6H PRN for SHORTNESS OF BREATH, (Reported) Entered as Reported by: LINDA HESS on 09/22/21 102 Last Action: Reviewed Albuterol Sulfate (Proventil Hfa) 6.7 Gm Hfa.aer.ad, 2 PUFF PO Q6H PRN for SHORTNESS OF BREATH, (Reported) Entered as Reported by: BINA TSE on 02/22/23858 Last Action: Reviewed Allopurinol (Allopurinol) 100 Mg Tablet, 100 MG PO DAILY, (Reported) Entered as Reported by: BINA TSE on 02/22/23858 Last Action: Reviewed Amlodipine Besylate (Amlodipine Besylate) 5 Mg Tablet, 5 MG PO DAILY, (Reported) Entered as Reported by: BINA TSE on 02/22/23858 Last Action: Reviewed Aspirin (Aspirin EC) 81 Mg Tablet.dr, 81 MG PO DAILY, (Reported) Entered as Reported by: LINDA HESS on 10/07/201537 Last Action: Reviewed Bisoprolol Fumarate (Bisoprolol Fumarate) 10 Mg Tablet, 10 MG PO HS, (Reported) Entered as Reported by: Mary Figueroa on 02/20/23 1136 Last Action: Reviewed Ciprofloxacin HCl (Ciprofloxacin HCl) 500 Mg Tablet, 500 MG PO BID Prescribed by: CYNTHIA CORTEZ on 02/23/23 175 Clopidogrel Bisulfate (Clopidogrel) 75 Mg Tablet, 75 MG PO DAILY, (Reported) Entered as Reported by: LINDA HESS on 10/07/20 153 Last Action: Reviewed Colchicine (Colchicine) 0.6 Mg Tablet, 0.6 MG PO DAILY PRN for GOUT PAIN, (Reported) Entered as Reported by: BINA TSE on 02/22/23 0859 Last Action: Reviewed Doxazosin Mesylate (Doxazosin Mesylate) 2 Mg Tablet, 2 MG PO DAILY, (Reported) Entered as Reported by: Mary Figueroa on 02/20/23 113 Last Action: Reviewed Doxazosin Mesylate (Doxazosin Mesylate) 4 Mg Tablet, 4 MG PO HS, (Reported) Entered as Reported by: Mary Figueroa on 02/20/231135 Last Action: Reviewed Gabapentin (Neurontin) 300 Mg Capsule, 300 MG PO TID, (Reported) Entered as Reported by: LINDA HESS on 10/07/20 153 Last Action: Reviewed Glimepiride (Glimepiride) 4 Mg Tablet, 4 MG PO DAILY PRN for HYPERGLYCEMIA, (Reported) Entered as Reported by: Mary Figueroa on 02/20/231135 Last Action: Reviewed Hydrocodone/Acetaminophen (Hydrocodone-Acetamin 7.5-325) 7.5 Mg-325 Mg Tablet, 1 EACH PO Q4H PRN for PAIN-BREAKTHROUGH Prescribed by: CYNTHIA CORTEZ on 02/22/23 1718 Isosorbide Mononitrate (Isosorbide Mononitrate ER) 120 Mg Tab.er.24h, 120 MG PO HS, (Reported) Entered as Reported by: Mary Figueroa on 02/20/23 113 Last Action: Reviewed Losartan Potassium (Losartan Potassium) 50 Mg Tablet, 50 MG PO BID, (Reported) Entered as Reported by: LINDA HESS on 09/22/21 1020 Last Action: Reviewed Metronidazole (Metronidazole) 500 Mg Tablet, 500 MG PO BID Prescribed by: CYNTHIA CORTEZ on 02/23/23 175 Pantoprazole Sodium (Pantoprazole Sodium) 40 Mg Tablet.dr, 40 MG PO DAILY, (Reported) Entered as Reported by: TERESA BATES on 10/04/18 0912 Last Action: Reviewed Discontinued Medications Bisoprolol Fumarate (Bisoprolol Fumarate) 10 Mg Tablet, 10 MG PO BID Discontinued Reason: No Longer Taking Prescribed by: BART SMITH on 09/23/21 1650 Last Action: Discontinued Bisoprolol Fumarate (Bisoprolol Fumarate) 10 Mg Tablet, 10 MG PO BID Discontinued Reason: No Longer Taking Prescribed by: JACQUELINE ARZATE on 11/13/21 1431 Last Action: Discontinued Doxazosin Mesylate (Doxazosin Mesylate) 4 Mg Tablet, 8 MG PO BID, (Reported) Discontinued Reason: No Longer Taking Entered as Reported by: LINDA HESS on 09/22/21 1020 Last Action: Discontinued Doxazosin Mesylate (Doxazosin Mesylate) 8 Mg Tablet, 8 MG PO BID Discontinued Reason: No Longer Taking Prescribed by: JACQUELINE ARZATE on 11/13/21 143 Last Action: Discontinued Glimepiride (Glimepiride) 4 Mg Tablet, 4 MG PO BID, (Reported) Discontinued Reason: No Longer Taking Entered as Reported by: MAIK SEGOVIA on 10/17/19 0854 Last Action: Discontinued Isosorbide Mononitrate (Isosorbide Mononitrate ER) 60 Mg Tab, 120 MG PO DAILY Discontinued Reason: No Longer Taking Prescribed by: JENNIFER COTTER on 09/23/21 1500 Last Action: Discontinued Review of Systems Review of Systems Constitutional: see HPI EENTM: no symptoms reported Respiratory: no symptoms reported Cardiovascular: no symptoms reported Gastrointestinal: abdominal pain Genitourinary: no symptoms reported Musculoskeletal: back pain (right thoracic) Skin: no symptoms reported All Other Systems Reviewed Negative Unless Noted: Yes Past Zpnedlf-Cstzni-Vxuanh Hx Patient Social History Tobacco Use?: Yes Tobacco type used: Cigarettes Smoking Status: Current Everyday Smoker Substance use?: No Alcohol Use?: Yes Alcohol type: Beer Alcohol Frequency: Several times a month Immunizations Up To Date Tetanus Booster (TDap): Less than 5yrs PED Vaccines UTD: No Influenza Vaccine Up-to-Date: Yes; Up-to-Date First/Initial COVID19 Vaccinat: 09/02/2020 Second COVID19 Vaccination Willis: 09/26/2020 Third COVID19 Vaccination Date: 2021 Seasonal Allergies Seasonal Allergies: No Past Medical History Surgery/Hospitalization HX: CARDIAC CATHS--STENTS X 4 IN HEART, LEFT RENAL ARTERY STENTS X 3, RIGHT RENAL ARTERY STENTS X 2, CHF, CKD, LEUKOCYTOSIS Surgeries: Yes Bladder Surgery, Coronary Stent, Gallbladder, Hysterectomy, Orthopedic, Tonsillectomy, Vascular Surgery Respiratory: Yes Sleep Apnea, COPD Currently Using CPAP: Yes Cardiac: Yes (CHF) Chronic Edema/Swelling, Coronary Artery Disease, High Cholesterol, Hypertension, Peripheral Vascular Neurological: Yes Neuropathy Reproductive Disorders: No Female Reproductive Disorders: Denies Sexually Transmitted Disease: No HIV/AIDS: No Genitourinary: Yes (CHRONIC INCONTINENCE; RENAL ARTERY STENOSIS) Renal Failure Gastrointestinal: Yes Chronic Diarrhea, Polyps Musculoskeletal: Yes (, CERVICAL STENOSIS) Degenerate Disk Disease, Fibromyalgia Endocrine: Yes (history of thyroid nodules) Adrenal Disease, Diabetes, Non-Insulin dep HEENT: Yes Loss of Vision: Bilateral Hearing Impairment: Hard of Hearing Psychosocial: No Integumentary: No Blood Disorders: Yes (ANEMIA; MYELOPROLIFERATIVE DISORDER) Adverse Reaction/Blood Tranf: No Family Medical History Heart Disease, Cancer, CAD Over 55 Years Old, Stroke Non-contributory Physical Exam Vital Signs Vital Signs - First Documented 02/20/23 00:35 Temp 37.0 Pulse 77 Resp 22 B/P (MAP) 191/85 (120) Pulse Ox 94 Capillary Refill : Height, Weight, BMI Height: 5'2.00" Weight: 166lbs. 6.0oz. 75.918586fd; 29.00 BMI Method:Stated General Appearance: No Apparent Distress, WD/WN, Chronically ill Eyes: Bilateral Eye Normal Inspection, Bilateral Eye PERRL, Bilateral Eye EOMI HEENT: PERRL/EOMI Neck: Normal Inspection Respiratory: Lungs Clear, Normal Breath Sounds, No Accessory Muscle Use, No Respiratory Distress, Other (dimished throughout) Cardiovascular: Regular Rate, Rhythm, Normal Peripheral Pulses Gastrointestinal: Soft, Tenderness (minimal tenderness in the RUQ and epigastr um without involuntary guarding. quiet normal BS; non distended. Neg Saha's (GB surgically absent); mild rebound tenderness in the right mid abdomen) Extremity: Normal Capillary Refill, Normal Inspection, Normal Range of Motion, Non Tender, No Calf Tenderness, No Pedal Edema Neurologic/Psychiatric: Alert, Oriented x3, No Motor/Sensory Deficits, Normal Mood/Affect Skin: Normal Color, Warm/Dry Progress/Results/Core Measures Suspected Sepsis SIRS Temperature: Pulse: 77 Respiratory Rate: 22 Laboratory Tests 02/20/23 00:45: White Blood Count 17.1H Blood Pressure 191 /85 Mean: 120 Laboratory Tests 02/20/23 00:45: Creatinine 1.45H, Platelet Count 419H, Total Bilirubin 0.4 Results/Orders Lab Results Laboratory Tests Test 02/20/23 00:45 02/20/23 01:30 Range/Units White Blood Count 17.1 H 4.3-11.0 10^3/uL Red Blood Count 3.82 3.80-5.11 10^6/uL Hemoglobin 12.1 11.5-16.0 g/dL Hematocrit 38 35-52 % Mean Corpuscular Volume 99 80-99 fL Mean Corpuscular Hemoglobin 32 25-34 pg Mean Corpuscular Hemoglobin Concent 32 32-36 g/dL Red Cell Distribution Width 14.2 10.0-14.5 % Platelet Count 419 H 130-400 10^3/uL Mean Platelet Volume 10.5 9.0-12.2 fL Immature Granulocyte % (Auto) 1 % Neutrophils (%) (Auto) 86 H 42-75 % Lymphocytes (%) (Auto) 6 L 12-44 % Monocytes (%) (Auto) 5 0-12 % Eosinophils (%) (Auto) 2 0-10 % Basophils (%) (Auto) 1 0-10 % Neutrophils # (Auto) 14.7 H 1.8-7.8 10^3/uL Lymphocytes # (Auto) 1.0 1.0-4.0 10^3/uL Monocytes # (Auto) 0.8 0.0-1.0 10^3/uL Eosinophils # (Auto) 0.3 0.0-0.3 10^3/uL Basophils # (Auto) 0.1 0.0-0.1 10^3/uL Immature Granulocyte # (Auto) 0.1 0.0-0.1 10^3/uL Neutrophils % (Manual) 87 % Lymphocytes % (Manual) 10 % Monocytes % (Manual) 2 % Eosinophils % (Manual) 1 % Sodium Level 142 135-145 MMOL/L Potassium Level 4.1 3.6-5.0 MMOL/L Chloride Level 110 H 98-107 MMOL/L Carbon Dioxide Level 20 L 21-32 MMOL/L Anion Gap 12 5-14 MMOL/L Blood Urea Nitrogen 22 H 7-18 MG/DL Creatinine 1.45 H 0.60-1.30 MG/DL Estimat Glomerular Filtration Rate 37 BUN/Creatinine Ratio 15 Glucose Level 153 H 70-105 MG/DL Calcium Level 9.9 8.5-10.1 MG/DL Corrected Calcium 9.8 8.5-10.1 MG/DL Total Bilirubin 0.4 0.1-1.0 MG/DL Aspartate Amino Transf (AST/SGOT) 21 5-34 U/L Alanine Aminotransferase (ALT/SGPT) 17 0-55 U/L Alkaline Phosphatase 92 40-136 U/L Total Protein 7.1 6.4-8.2 GM/DL Albumin 4.1 3.2-4.5 GM/DL Urine Color YELLOW Urine Clarity CLEAR Urine pH 5.5 5-9 Urine Specific [place] 1.015 L 1.016-1.022 Urine Protein 3+ H NEGATIVE Urine Glucose (UA) NEGATIVE NEGATIVE Urine Ketones NEGATIVE NEGATIVE Urine Nitrite NEGATIVE NEGATIVE Urine Bilirubin NEGATIVE NEGATIVE Urine Urobilinogen 0.2 < = 1.0 MG/DL Urine Leukocyte Esterase NEGATIVE NEGATIVE Urine RBC (Auto) NEGATIVE NEGATIVE Urine RBC NONE /HPF Urine WBC 2-5 /HPF Urine Squamous Epithelial Cells 0-2 /HPF Urine Crystals NONE /LPF Urine Bacteria TRACE /HPF Urine Casts NONE /LPF Urine Mucus SMALL H /LPF Urine Culture Indicated NO Micro Results Microbiology 02/20/23 MRSA Screen - Final, Complete MRSA not isolated My Orders Orders - CARMINE TIPTON MD Ed Iv/Invasive Line Start (02/20/23 01:21) Cbc With Automated Diff (02/20/23 01:21) Comprehensive Metabolic Panel (02/20/23 01:21) Ua Culture If Indicated (02/20/23 01:21) Manual Differential (02/20/23 00:45) Ct Abdomen/Pelvis Wo (02/20/23 01:58) Vital Signs/I&O 02/20/23 00:35 Temp 37.0 Pulse 77 Resp 22 B/P (MAP) 191/85 (120) Pulse Ox 94 Capillary Refill : Blood Pressure Mean: 120 Progress Note : Time: 04:54 Progress Note Patient seen and evaluated by me. Evaluation today includes physical exam, CBC, Chem-12, urinalysis and CT scan of the abdomen and pelvis without contrast. Pertinent physical exam findings elderly appearing female with regular heart rate, clear lungs. She has a soft abdomen with quiet bowel sounds. She has tenderness in the right upper and lower quadrant with mild rebound. Negative heeltap. Differential diagnosis based on history and physical exam diverticulitis, appendicitis. Labs independently reviewed and interpreted by me. CBC shows a total white count of 17.1 with 86% segmented neutrophils. Hemoglobin is normal at 12 and 38 hematocrit. Platelet count is 419. Her chemistry is pertinent for decreased CO2 at 20 elevated BUN and creatinine of 22 and 1.45. Her glucose is up at 153. Urinalysis does not reveal infection, she has 3+ protein. CT scan of the abdomen and pelvis read by radiologist indicates a dilated appendix without overt signs of acute appendicitis. Patient is reexamined and does have a little bit more prominent rebound on reexamination. Will admit the patient for evaluation by Dr. CORTEZ. No concerning findings for diverticulitis. IV fluids started. Pain medications as needed. Patient will be kept n.p.o. Diagnostic Imaging Diagonstic Imaging: CT Comments [facility], [place] NAME: FREDO NEWBERRY [facility] REC#: [id number] PT STATUS: REG ER : 1945 PHYSICIAN: CARMINE TIPTON MD ADMIT DATE: 02/20/23/ER Signed Date of Exam:02/20/23 CT ABDOMEN/PELVIS WO CT ABDOMEN/PELVIS WO TECHNIQUE: Unenhanced CT imaging of the abdomen and pelvis was performed. 2-D reformats are created and submitted for interpretation. Automatic exposure controls were utilized to optimize patient dose. INDICATION: Right-sided abdominal pain COMPARISON: 06/16/2019 FINDINGS: Lower chest: The lung bases are clear. No pericardial or pleural effusion. Peritoneum: No free intraperitoneal air or fluid. Liver and biliary system: Unenhanced liver is normal. Cholecystectomy. Spleen and Pancreas: Spleen is normal. Unenhanced pancreas is grossly normal. Adrenals: Normal. tract: No renal or ureteral calculi. No obstructive uropathy. There is a trace amount of air within the urinary bladder. No bladder stones. Hysterectomy. GI tract: Stomach is decompressed. No bowel obstruction. Sigmoid colon diverticulosis without diverticulitis. The appendix is mildly dilated and an 8 mm but has no surrounding formation. Vasculature and Lymph nodes: Normal caliber aorta. No abdominal or pelvic lymphadenopathy. Musculoskeletal: No concerning osseous lesion. IMPRESSION: 1. Appendix is borderline dilated measuring 8 mm raising the possibility of acute appendicitis. However, there is no surrounding inflammation and correlation for features of appendicitis is suggested. 2. No urinary tract calculi or obstructive uropathy. 3. A trace amount of air is present in the bladder. Correlation for recent instrumentation and with urinalysis is suggested. Dictated by: Dictated on workstation # [id number] Dict: 02/20/23432 Trans: 02/20/23437 [facility] [id number] Interpreted by: YAZMIN GRIFFITHS MD Electronically signed by: YAZMIN GRIFFITHS MD 02/20/23437 Departure Communication (Admissions) Time/Spoke to Admitting Phy: 05:[address] Cortez; admit IP, Hold plavix; Clears, oral and IV pain medications; cipro and flagyl Impression Primary Impression: Appendicitis Qualified Codes: K35.80 - Unspecified acute appendicitis Disposition: ADMITTED INPATIENT Condition: Stable Admissions Decision to Admit Reason: Admit from ER (General) Decision to Admit/Date: Feb 20, 2023 Time/Decision to Admit Time: 05:09 Departure-Patient Inst. Referrals: RAJWINDER CARVAJAL MD (PCP/Family) Primary Care Physician Scripts Metronidazole (Metronidazole) 500 Mg Tablet 500 MG PO BID, #14 TAB Prov: CYNTHIA CORTEZ MD 02/23/23 Ciprofloxacin HCl (Ciprofloxacin HCl) 500 Mg Tablet 500 MG PO BID, #14 TAB Prov: CYNTHIA CORTEZ MD 02/23/23 Hydrocodone/Acetaminophen (Hydrocodone-Acetamin 7.5-325) 7.5 Mg-325 Mg Tablet 1 EACH PO Q4H PRN for PAIN-BREAKTHROUGH, #35 TAB Prov: CYNTHIA CORTEZ MD 02/22/23 CARMINE TIPTON MD Feb 20, 2023 01:45
[2023-02-20 01:47] LABS: BILIRUBIN,URINE NEGATIVE (NEGATIVE); CLARITY,URINE CLEAR; COLOR,URINE YELLOW; GLUCOSE, URINE (UA) NEGATIVE (NEGATIVE); KETONES,URINE NEGATIVE (NEGATIVE); NITRITE,URINE NEGATIVE (NEGATIVE); PH,URINE 5.5 (5-9); PROTEIN,URINE 3+ (NEGATIVE)
[2023-02-20 01:48] LABS: BACTERIA,URINE TRACE /HPF; LEUKOCYTE ESTERASE ,URINE NEGATIVE (NEGATIVE); SQUAMOUS EPITHELIAL CELL,UR 0-2 /HPF
--- NOTE | 2023-02-20 04:41 | Diagnostic Imaging Report ---
CT ABDOMEN/PELVIS WO TECHNIQUE: Unenhanced CT imaging of the abdomen and pelvis was performed. 2-D reformats are created and submitted for interpretation. Automatic exposure controls were utilized to optimize patient dose. INDICATION: Right-sided abdominal pain COMPARISON: 06/16/2019 FINDINGS: Lower chest: The lung bases are clear. No pericardial or pleural effusion. Peritoneum: No free intraperitoneal air or fluid. Liver and biliary system: Unenhanced liver is normal. Cholecystectomy. Spleen and Pancreas: Spleen is normal. Unenhanced pancreas is grossly normal. Adrenals: Normal. tract: No renal or ureteral calculi. No obstructive uropathy. There is a trace amount of air within the urinary bladder. No bladder stones. Hysterectomy. GI tract: Stomach is decompressed. No bowel obstruction. Sigmoid colon diverticulosis without diverticulitis. The appendix is mildly dilated and an 8 mm but has no surrounding formation. Vasculature and Lymph nodes: Normal caliber aorta. No abdominal or pelvic lymphadenopathy. Musculoskeletal: No concerning osseous lesion. IMPRESSION: 1. Appendix is borderline dilated measuring 8 mm raising the possibility of acute appendicitis. However, there is no surrounding inflammation and correlation for features of appendicitis is suggested. 2. No urinary tract calculi or obstructive uropathy. 3. A trace amount of air is present in the bladder. Correlation for recent instrumentation and with urinalysis is suggested. Dictated by: Dictated on workstation # [id number]
[2023-02-20] MEDS ORDERED: NS IV 1000 ML 1,000 ML ONE (05:36)
[2023-02-20] MEDS ORDERED: ONDANSETRON INJECTION 4 MG/2 ML (SDV) IV PRN (06:00)
[2023-02-20] MEDS: metroNIDAZOLE 500MG/100ML IVPB 100 ML IV SCH ×2 (06:03→17:14)
[2023-02-20] MEDS: NS IV 1000 ML 1,000 ML IV SCH ×2 (06:03→21:25)
[2023-02-20] MEDS: fentaNYL INJECTION 100 MCG/2 ML VIAL IV PRN ×4 (06:11→17:15)
[2023-02-20] MEDS: CIPROFLOXACIN IV 400MG/200ML 200 ML IV SCH (06:58)
[2023-02-20] MEDS ORDERED: RT-Ipratropium/Albuterol NEB 3 ML VIAL INH PRN (09:30)
[2023-02-20] MEDS ORDERED: RT-IPRATROPIUM NEBS 0.5 MG/2.5 ML IH PRN (11:30)
[2023-02-20] MEDS ORDERED: RT-ALBUTEROL SULF 2.5 MG/3 ML PRE-MIX VIAL INH PRN (11:30)
[2023-02-20] MEDS ORDERED: ISOS120T9 PO (11:36)
[2023-02-20] MEDS ORDERED: GLIM4TAB5 PO (11:36)
[2023-02-20] MEDS ORDERED: BISO10TA6 PO (11:36)
[2023-02-20] MEDS ORDERED: DOXA4TAB2 PO (11:36)
[2023-02-20] MEDS ORDERED: DOXA2TAB2 PO (11:36)
[2023-02-20] MEDS: hydrALAZINE INJECTION 20 MG/ML VIAL IV PRN ×2 (12:19→21:25)
[2023-02-20] MEDS: GABAPENTIN 300 MG CAPSULE PO SCH ×2 (12:19→19:27)
--- NOTE | 2023-02-20 14:45 | Consultation-Cardiology ---
HPI-Cardiology Cardiology Consultation: Date of Consultation 02/20/23 Date of Admission Attending Physician Tone Perez MD Admitting Physician Admitting Physician: Tim Cortez MD Attending Physician: Tim Cortez MD Consulting Physician Mervin HILL MD HPI: Time Seen by a Provider: 16:00 Chief Complaint: Abdominal pain This is a 77-year-old lady who has history of severe hypertension. Presents with abdominal pain and has been diagnosed with acute appendicitis. Abdominal surgery planned for Wednesday Review of Systems-Cardiology Review of Systems Constitutional: no symptoms reported Eyes: no symptoms reported Ears/Nose/Throat: no symptoms reported Respiratory: no symptoms reported Cardiovascular: no symptoms reported Gastrointestinal: abdominal pain All Other Systems Reviewed Negative Unless Noted: Yes BOT-Coccon-Cdwxpz Hx Patient Social History Smoking Status: Current Everyday Smoker 2nd Hand Smoke Exposure: No Alcohol Use?: Yes Pt feels they are or have been: No Tobacco type used: Cigarettes Immunizations Up To Date Tetanus Booster (TDap): Less than 5yrs Date of Pneumonia Vaccine: May 04, 2016 Date of Influenza Vaccine: Jun 27, 2021 Past Medical History PMH As described under Assessment. Family Medical History Family Medical History: Does not eport fam h/o early CAD Allergies and Home Medications Allergies Coded Allergies: atorvastatin calcium (Unverified Allergy, Unknown, 07/27/16) cefdinir (Verified Allergy, Unknown, 09/01/17) codeine (Unverified Allergy, Unknown, 07/27/16) doxycycline (Verified Allergy, Unknown, 09/01/17) escitalopram oxalate (Unverified Allergy, Unknown, 07/27/16) niacin (Unverified Allergy, Unknown, 07/27/16) oxycodone (Verified Allergy, Unknown, 09/01/17) simvastatin (Unverified Allergy, Unknown, 07/27/16) tramadol (Unverified Allergy, Unknown, 07/27/16) acetaminophen (Verified Adverse Reaction, Mild, 10/17/19) TYLENOL WITH CODEINE MAKE PT ITCH. Patient Home Medication List Home Medication List Reviewed: Yes Acetaminophen (Tylenol Extra Strength) 500 Mg Tablet, 500-1,000 MG PO Q6H PRN for PAIN-MILD (1-4), (Reported) Entered as Reported by: LINDA HESS on 10/07/20 2715 Last Action: Reviewed Albuterol Sulfate (Albuterol Sulfate) 2.5 Mg/0.5 Ml Vial.neb, 2.5 MG INH Q6H PRN for SHORTNESS OF BREATH, (Reported) Entered as Reported by: LINDA HESS on 09/22/211027 Last Action: Continued Aspirin (Aspirin EC) 81 Mg Tablet.dr, 81 MG PO DAILY, (Reported) Entered as Reported by: LINDA HESS on 10/07/201537 Last Action: Reviewed Bisoprolol Fumarate (Bisoprolol Fumarate) 10 Mg Tablet, 10 MG PO HS, (Reported) Entered as Reported by: Mary Figueroa on 02/20/231135 Last Action: Converted Clopidogrel Bisulfate (Clopidogrel) 75 Mg Tablet, 75 MG PO DAILY, (Reported) Entered as Reported by: LINDA HESS on 10/07/201537 Last Action: Reviewed Doxazosin Mesylate (Doxazosin Mesylate) 2 Mg Tablet, 2 MG PO DAILY, (Reported) Entered as Reported by: Mary Figueroa on 02/20/231135 Last Action: Continued Doxazosin Mesylate (Doxazosin Mesylate) 4 Mg Tablet, 4 MG PO HS, (Reported) Entered as Reported by: Mary Figueroa on 02/20/231135 Last Action: Continued Gabapentin (Neurontin) 300 Mg Capsule, 300 MG PO TID, (Reported) Entered as Reported by: LINDA HESS on 10/07/201537 Last Action: Continued Glimepiride (Glimepiride) 4 Mg Tablet, 4 MG PO DAILY, (Reported) Entered as Reported by: Mary Figueroa on 02/20/231135 Last Action: Converted Ipratropium [place] (Ipratropium [place]) 0.2 Mg/1 Ml Solution, 0.2 MG IH Q8H PRN for SHORTNESS OF BREATH, (Reported) Entered as Reported by: LINDA HESS on 09/22/211027 Last Action: Continued Isosorbide Mononitrate (Isosorbide Mononitrate ER) 120 Mg Tab.er.24h, 120 MG PO HS, (Reported) Entered as Reported by: Mary Figueroa on 02/20/231135 Last Action: Converted Losartan Potassium (Losartan Potassium) 50 Mg Tablet, 50 MG PO BID, (Reported) Entered as Reported by: LINDA HESS on 09/22/21 1020 Last Action: Continued Pantoprazole Sodium (Pantoprazole Sodium) 40 Mg Tablet.dr, 40 MG PO DAILY, (Reported) Entered as Reported by: TERESA BATES on 10/04/18 0912 Last Action: Continued Discontinued Medications Bisoprolol Fumarate (Bisoprolol Fumarate) 10 Mg Tablet, 10 MG PO BID Discontinued Reason: No Longer Taking Prescribed by: BART SMITH on 09/23/21 1650 Last Action: Discontinued Bisoprolol Fumarate (Bisoprolol Fumarate) 10 Mg Tablet, 10 MG PO BID Discontinued Reason: No Longer Taking Prescribed by: JACQUELINE ARZATE on 11/13/21 1431 Last Action: Discontinued Doxazosin Mesylate (Doxazosin Mesylate) 4 Mg Tablet, 8 MG PO BID, (Reported) Discontinued Reason: No Longer Taking Entered as Reported by: LINDA HESS on 09/22/21 1020 Last Action: Discontinued Doxazosin Mesylate (Doxazosin Mesylate) 8 Mg Tablet, 8 MG PO BID Discontinued Reason: No Longer Taking Prescribed by: JACQUELINE ARZATE on 11/13/21 1431 Last Action: Discontinued Glimepiride (Glimepiride) 4 Mg Tablet, 4 MG PO BID, (Reported) Discontinued Reason: No Longer Taking Entered as Reported by: MAIK SEGOVIA on 10/17/19 0854 Last Action: Discontinued Isosorbide Mononitrate (Isosorbide Mononitrate ER) 60 Mg Tab, 120 MG PO DAILY Discontinued Reason: No Longer Taking Prescribed by: JENNIFER COTTER on 09/23/21 1500 Last Action: Discontinued Exam Vital Signs Vital Signs Date Time Temp Pulse Resp B/P (MAP) Pulse Ox O2 Delivery O2 Flow Rate FiO2 02/20/23 21:16 170/60 (96) 02/20/23 20:15 37.5 76 18 91 Room Air Physical Exam Constitutional: No respiratory distress. Chest: Clear to auscultation bilaterally. CVS: Regular rate and rhythm. No murmur. Abdominal discomfort. Neuro: Nonfocal. No pedal edema. Labs Laboratory Tests Test 02/20/23 00:45 02/20/23 01:30 Range/Units White Blood Count 17.1 H 4.3-11.0 10^3/uL Red Blood Count 3.82 3.80-5.11 10^6/uL Hemoglobin 12.1 11.5-16.0 g/dL Hematocrit 38 35-52 % Mean Corpuscular Volume 99 80-99 fL Mean Corpuscular Hemoglobin 32 25-34 pg Mean Corpuscular Hemoglobin Concent 32 32-36 g/dL Red Cell Distribution Width 14.2 10.0-14.5 % Platelet Count 419 H 130-400 10^3/uL Mean Platelet Volume 10.5 9.0-12.2 fL Immature Granulocyte % (Auto) 1 % Neutrophils (%) (Auto) 86 H 42-75 % Lymphocytes (%) (Auto) 6 L 12-44 % Monocytes (%) (Auto) 5 0-12 % Eosinophils (%) (Auto) 2 0-10 % Basophils (%) (Auto) 1 0-10 % Neutrophils # (Auto) 14.7 H 1.8-7.8 10^3/uL Lymphocytes # (Auto) 1.0 1.0-4.0 10^3/uL Monocytes # (Auto) 0.8 0.0-1.0 10^3/uL Eosinophils # (Auto) 0.3 0.0-0.3 10^3/uL Basophils # (Auto) 0.1 0.0-0.1 10^3/uL Immature Granulocyte # (Auto) 0.1 0.0-0.1 10^3/uL Neutrophils % (Manual) 87 % Lymphocytes % (Manual) 10 % Monocytes % (Manual) 2 % Eosinophils % (Manual) 1 % Sodium Level 142 135-145 MMOL/L Potassium Level 4.1 3.6-5.0 MMOL/L Chloride Level 110 H 98-107 MMOL/L Carbon Dioxide Level 20 L 21-32 MMOL/L Anion Gap 12 5-14 MMOL/L Blood Urea Nitrogen 22 H 7-18 MG/DL Creatinine 1.45 H 0.60-1.30 MG/DL Estimat Glomerular Filtration Rate 37 BUN/Creatinine Ratio 15 Glucose Level 153 H 70-105 MG/DL Calcium Level 9.9 8.5-10.1 MG/DL Corrected Calcium 9.8 8.5-10.1 MG/DL Total Bilirubin 0.4 0.1-1.0 MG/DL Aspartate Amino Transf (AST/SGOT) 21 5-34 U/L Alanine Aminotransferase (ALT/SGPT) 17 0-55 U/L Alkaline Phosphatase 92 40-136 U/L Total Protein 7.1 6.4-8.2 GM/DL Albumin 4.1 3.2-4.5 GM/DL Urine Color YELLOW Urine Clarity CLEAR Urine pH 5.5 5-9 Urine Specific [place] 1.015 L 1.016-1.022 Urine Protein 3+ H NEGATIVE Urine Glucose (UA) NEGATIVE NEGATIVE Urine Ketones NEGATIVE NEGATIVE Urine Nitrite NEGATIVE NEGATIVE Urine Bilirubin NEGATIVE NEGATIVE Urine Urobilinogen 0.2 < = 1.0 MG/DL Urine Leukocyte Esterase NEGATIVE NEGATIVE Urine RBC (Auto) NEGATIVE NEGATIVE Urine RBC NONE /HPF Urine WBC 2-5 /HPF Urine Squamous Epithelial Cells 0-2 /HPF Urine Crystals NONE /LPF Urine Bacteria TRACE /HPF Urine Casts NONE /LPF Urine Mucus SMALL H /LPF Urine Culture Indicated NO ECG Impression ECG Initial ECG Rhythm: Normal Sinus Comment Sinus rhythm with LVH A/P-Cardiology Assessment/Admission Diagnosis Acute appendicitis, Severe hypertension, LV Plan Acute appendicitis, likely surgery on Wednesday with Dr. OCRTEZ. On Cipro and Flagyl. Hypertension, -Restart all home medications; as needed hydralazine Request - MPI on 09/23/21: no ischemia or infarct CAD: - H/o cor stents (LAD and diag) with Dr Whitley. - Cardiac cath of October 16, 2019: Coronary artery disease consisting primarily of 70% in-stent restenosis of the left anterior descending (fractional flow reserve 0.8). To this, successful balloon angioplasty was carried out. The left anterior descending has approximately 50% bifurcation stenosis. The left circumflex artery has a 50% stenosis in its proximal to mid portion and 70% stenosis in its mid to distal portion and fractional flow reserve across a combination of these lesions is 0.89, indicating hemodynamic insignificance. Right coronary artery is dominant and has a patent stent in its distal portion. The right coronary artery has mild to moderate diffuse disease. Mildly elevated left ventricular end-diastolic pressure. - MPI of 04/02/20: no ischemia or infarction, LVEF 64% - MPI of 11/18/20: no ischemia or infarct, LVEF 62% - Echo of 11/16/20: LVEF 55-65%, mild MR and trivial AI, PASP 35-45 mmHg - Echo on 09/22/21: LVEF 55-60%, PASP 30 -35 mmHg - MPI on 09/23/21: no ischemia or infarct Renal artery stenosis - H/o bilateral renal artery stents with Dr Whitley. Mod bilat renal artery stenoses on renal a angio of 03/09/16 (Dr Vasquez) - Renal artery duplex on 06-25-21 at [facility] by Dr. Carrillo showed Renal arteries and veins are patent bilat. Patent stents bilat in the prox segments of the renal arteries with no evidence of flow acceleration to suggest hemodynamically signif stenosis. No high grade stenosis DM II - managed by PCP CKD 4, - probably diabetic nephropathy, followed and treated by her chief technologist Dr Ramirez Chronic back pain - managed by PCP Bilateral leg discomfort, - No evidence of PAD of the lower limbs, per segmentals of Mar 2020 Chronic tobacco use, - quit in 2011 COPD - managed by PCP AUDIE - treated with CPAP Myeloproliferative disorder - with leuckocytosis and thrombocytosis and chronic anemia - managed by [facility] [place], [place] Carotid dz: - Mild carotid art disease on carotid u/s of Mar 2020 No evidence of AAA per scan of Mar 2020 Chronic back pain and cervical radiculopathy - followed and treated by her spine surgeon Bilat leg swelling - due to venous insuff and, possibly, CCB therapy Multinodular thyroid goiter - followed by her oncologist HLD - refuses statin tx d/t reported intolerance Mervin HILL MD Feb 20, 2023 14:45
[2023-02-20] MEDS: LOSARTAN 50 MG TABLET PO SCH ×2 (14:53→19:27)
[2023-02-20] MEDS: ISOSORBIDE MONONITRATE 60 MG TABLET PO SCH (19:27)
[2023-02-20] MEDS: BISOPROLOL 5 MG TABLET PO SCH (19:27)
[2023-02-21] VITALS (8 sets, daily range): BP systolic 133–175; BP diastolic 65–77
[2023-02-21] MEDS: hydrALAZINE INJECTION 20 MG/ML VIAL IV PRN ×2 (04:42→15:28)
[2023-02-21] MEDS: metroNIDAZOLE 500MG/100ML IVPB 100 ML IV SCH ×2 (04:42→17:24)
[2023-02-21] MEDS: GLIMEPIRIDE 2 MG TABLET PO SCH (05:44)
[2023-02-21] MEDS: CIPROFLOXACIN IV 400MG/200ML 200 ML IV SCH (05:44)
[2023-02-21] MEDS: LOSARTAN 50 MG TABLET PO SCH ×2 (08:00→19:25)
[2023-02-21] MEDS: GABAPENTIN 300 MG CAPSULE PO SCH ×3 (08:00→19:25)
[2023-02-21] MEDS: PANTOPRAZOLE 40 MG TABLET PO SCH (08:00)
[2023-02-21] MEDS: NS IV 1000 ML 1,000 ML IV SCH ×2 (08:45→13:47)
--- NOTE | 2023-02-21 11:04 | Progress Note ---
Subjective Date Seen by a Provider: Feb 21, 2023 Time Seen by a Provider: 10:15 Subjective/Events-last exam Patient seen with Dr. Cortez. Patient denies any pain this morning. No nausea or vomiting. Tolerating diet. BP better this morning. Echo scheduled for today. Objective Exam Vital Signs Date Time Temp Pulse Resp B/P (MAP) Pulse Ox O2 Delivery O2 Flow Rate FiO2 02/21/23 08:00 Room Air 02/21/23 07:54 37.3 81 17 135/74 (94) 90 Room Air 02/21/23 06:09 91 Room Air 02/21/23 05:51 74 155/69 (97) 02/21/23 04:00 37.3 71 18 173/77 (109) 87 Room Air 02/21/23 00:00 37.3 77 18 175/73 (107) 85 Room Air 02/20/23 21:16 170/60 (96) 02/20/23 20:15 37.5 76 18 188/72 (110) 91 Room Air 02/20/23 19:25 Room Air 02/20/23 17:05 198/73 (114) 02/20/23 15:17 37.3 77 16 182/107 (132) 92 Room Air 02/20/23 11:25 36.7 67 18 204/92 (129) 93 Room Air I & O 02/21/23 07:00 Intake Total 3525 ml Output Total 1525 ml Balance 2000 ml Capillary Refill : General Appearance: No Apparent Distress, WD/WN Neck: Normal Inspection, Supple Respiratory: No Accessory Muscle Use, No Respiratory Distress Gastrointestinal: normal bowel sounds, non tender, soft Extremity: Normal Inspection, Normal Range of Motion Neurologic/Psychiatric: Alert, Oriented x3 Skin: Normal Color, Warm/Dry Assessment/Plan Assessment/Plan Assess & Plan/Chief Complaint A 77 year old female with Acute appendicitis, CHF, HTN VSS Await echo today Continue with abx, pain and nausea meds Holding plavix and aspirin Will schedule for lap appy tomorrow MURIEL ARRIETA APRN Feb 21, 2023 11:04
[2023-02-21] MEDS: RT-Ipratropium/Albuterol NEB 3 ML VIAL INH SCH ×3 (11:24→19:55)
--- NOTE | 2023-02-21 12:20 | HISTORY AND PHYSICAL ---
DATE OF SERVICE: 02/20/2023 ATTENDING PRIMARY CARE PHYSICIAN: Dr. Tone Perez. The patient is a 77-year-old female who was seen with Dr. Cortez on 02/20/2023. She reported that for the last several weeks, she had not felt well and had been having right-sided abdominal pain. She reports last couple days has had worsened and then she presented to [facility] emergency department. She reports that she was taking Tylenol for the pain and this did help some. She did report some nausea, but no vomiting. She does have a history of stage III renal failure, COPD, CHF, and type 2 diabetes. She denied any worsening shortness of breath or any chest pain. She did undergo a workup in the emergency room and was found to have a leukocytosis of 17,000. She then underwent a CT scan and was found to have a borderline dilated appendix concerning for an acute appendicitis. She was admitted, started on IV fluids as well as antibiotics as well as pain medication. She reported that since being admitted, her pain was somewhat better and denied any nausea. She was tolerating a clear liquid diet with no fever or chills. MEDICAL HISTORY: Myocardial infarction, coronary artery disease, hypercholesterolemia, hypertension, peripheral vascular disease, CHF, chronic urinary incontinence, renal artery stenosis, stage III renal failure, fibromyalgia, degenerative disk disease, type 2 diabetes mellitus, anemia, myeloproliferative disorder, sleep apnea, COPD. SURGICAL HISTORY: Cardiac catheterization with 4 stents placed. The left renal artery stents placed x3, right renal artery stents placed x2, cholecystectomy, bladder surgery, hysterectomy, orthopedic procedure, tonsillectomy, vascular surgery. ALLERGIES: ATORVASTATIN, CEFDINIR, CODEINE, DOXYCYCLINE, LEXAPRO, NIACIN, OXYCODONE, SIMVASTATIN, TRAMADOL. MEDICATIONS: Tylenol 500 mg 1-2 tablets q.6 hours p.r.n., albuterol sulfate 2.5 mg q.6 hours p.r.n. shortness of breath, aspirin 81 mg daily, bisoprolol 10 mg b.i.d., Plavix 75 mg daily, doxazosin 4 mg 2 tablets b.i.d., gabapentin 300 mg t.i.d., glimepiride 4 mg b.i.d., Iprotropium bromide 0.2 mg q.8 hours p.r.n., isosorbide mononitrate 60 mg 2 tablets daily, losartan potassium 50 mg b.i.d., Protonix 40 mg daily. SOCIAL HISTORY: Positive for tobacco smoke for 50 pack years. Social for alcohol. FAMILY HISTORY: Noncontributory. VITAL SIGNS: Blood pressure 121/77, pulse 64, respirations 17, pulse ox 92% on room air, temperature is 36 degrees Celsius. REVIEW OF SYSTEMS: This is a well-nourished female in no acute distress. She is not experiencing any shortness of breath or difficulty breathing. No chest pain, palpitations or diaphoresis. She did report episodes of nausea, but no vomiting. She does report right side abdominal pain. No diarrhea or constipation. No red blood per rectum. No dark tarry stools. No fever or chills. No recent inadvertent weight loss. All other review of systems negative. PHYSICAL EXAM: CHEST: Clear, diminished breath sounds throughout. HEART: Regular. No murmurs. EXTREMITIES: No lower extremity edema. Negative Homans sign. HEENT: No scleral icterus. No cervical lymphadenopathy. ABDOMEN: Soft, nondistended. There is some tenderness of the right abdomen, especially in the right mid abdomen. No peritoneal signs. SKIN: Warm, dry and pink. NEUROLOGIC: Awake, alert and oriented x3. ASSESSMENT AND PLAN: A 77-year-old female with acute appendicitis who does have a multitude of medical comorbidities. At this time, she is on blood thinners and does have an extensive cardiac history. We will proceed with holding her anticoagulation as well as IV antibiotics and pain medication. We will also consult Cardiology for further evaluation as well as clearance and we will schedule her for a laparoscopic appendectomy on this admission. Job ID: [id number] DocumentID: [id number] Dictated Date: 02/21/2023 11:16:41 Dispensing And Measuring Optician Date: 02/21/2023 12:18:00 Dictated By: PAULA CORONADO
--- NOTE | 2023-02-21 17:33 | Cardiology Progress Note ---
Cardiology SOAP Progress Note Subjective: No cardiac complaints. Objective: I&O/Vital Signs 02/21/23 02/21/23 02/21/23 02/21/23 05:51 06:09 07:54 08:00 Temp 37.3 Pulse 74 81 Resp 17 B/P (MAP) 155/69 (97) 135/74 (94) Pulse Ox 91 90 O2 Delivery Room Air Room Air Room Air 02/21/23 02/21/23 02/21/23 11:55 15:02 15:10 Temp 36.8 36.6 Pulse 82 78 Resp 18 18 B/P (MAP) 133/73 (93) 173/76 (108) Pulse Ox 92 90 92 O2 Delivery Room Air Room Air Room Air 02/21/23 00:00 Intake Total 2725 ml Output Total 1400 ml Balance 1325 ml Weight (Pounds): 166 Weight (Ounces): 6.0 Weight (Calculated Kilograms): [id number] Constitutional: AAO x 3 Respiratory: lungs clear to auscultation Cardiovascular: regular rate-rhythm Neurologic/Psychiatric: no motor/sensory deficits, alert, normal mood/affect, oriented x 3 Skin: normal color A/P: Assessment/Dx: Acute appendicitis, Severe hypertension, LV Plan: Acute appendicitis, likely surgery on Wednesday with Dr. CANELA. On Cipro and Flagyl. No absolute cardiology contraindication to appendicitis surgery. Moderate perioperative risk for major adverse cardiac events undergoing a moderate risk abdominal surgery. Hypertension, -Restart all home medications; as needed hydralazine Echocardiogram shows normal LV function with significant LVH. - MPI on 09/23/21: no ischemia or infarct CAD: - H/o cor stents (LAD and diag) with Dr Whitley. - Cardiac cath of October 16, 2019: Coronary artery disease consisting primarily of 70% in-stent restenosis of the left anterior descending (fractional flow reserve 0.8). To this, successful balloon angioplasty was carried out. The left anterior descending has approximately 50% bifurcation stenosis. The left circu mflex artery has a 50% stenosis in its proximal to mid portion and 70% stenosis in its mid to distal portion and fractional flow reserve across a combination of these lesions is 0.89, indicating hemodynamic insignificance. Right coronary artery is dominant and has a patent stent in its distal portion. The right coronary artery has mild to moderate diffuse disease. Mildly elevated left ventricular end-diastolic pressure. - MPI of 04/02/20: no ischemia or infarction, LVEF 64% - MPI of 11/18/20: no ischemia or infarct, LVEF 62% - Echo of 11/16/20: LVEF 55-65%, mild MR and trivial AI, PASP 35-45 mmHg - Echo on 09/22/21: LVEF 55-60%, PASP 30 -35 mmHg - MPI on 09/23/21: no ischemia or infarct Renal artery stenosis - H/o bilateral renal artery stents with Dr Whitley. Mod bilat renal artery stenoses on renal a angio of 03/09/16 (Dr Vasquez) - Renal artery duplex on 06-25-21 at [facility] by Dr. Carrillo showed Renal arteries and veins are patent bilat. Patent stents bilat in the prox segments of the renal arteries with no evidence of flow acceleration to suggest hemodynamically signif stenosis. No high grade stenosis DM II - managed by PCP CKD 4, - probably diabetic nephropathy, followed and treated by her criminal defense lawyer Dr Ramirez Chronic back pain - managed by PCP Bilateral leg discomfort, - No evidence of PAD of the lower limbs, per segmentals of Mar 2020 Chronic tobacco use, - quit in 2011 COPD - managed by PCP AUDIE - treated with CPAP Myeloproliferative disorder - with leuckocytosis and thrombocytosis and chronic anemia - managed by [facility] [place], [place] Carotid dz: - Mild carotid art disease on carotid u/s of Mar 2020 No evidence of AAA per scan of Mar 2020 Chronic back pain and cervical radiculopathy - followed and treated by her spine surgeon Bilat leg swelling - due to venous insuff and, possibly, CCB therapy Multinodular thyroid goiter - followed by her oncologist HLKadi - refuses statin tx d/t reported intolerance Mervin HILL MD Feb 21, 2023 17:33
[2023-02-21] MEDS: fentaNYL INJECTION 100 MCG/2 ML VIAL IV PRN (18:40)
[2023-02-21] MEDS: BISOPROLOL 5 MG TABLET PO SCH (19:25)
[2023-02-21] MEDS: ISOSORBIDE MONONITRATE 60 MG TABLET PO SCH (19:25)
[2023-02-21] MEDS ORDERED: ACETAMINOPHEN 325 MG TABLET PO PRN (19:30)
[2023-02-22] VITALS (13 sets, daily range): BP systolic 116–162; BP diastolic 52–96
[2023-02-22] MEDS: metroNIDAZOLE 500MG/100ML IVPB 100 ML IV SCH ×2 (04:47→18:32)
[2023-02-22] MEDS: NS IV 1000 ML 1,000 ML IV SCH (04:47)
[2023-02-22] MEDS: GLIMEPIRIDE 2 MG TABLET PO SCH (04:48)
[2023-02-22] MEDS: CIPROFLOXACIN IV 400MG/200ML 200 ML IV SCH (05:53)
[2023-02-22 06:25] LABS: HEMATOCRIT 32 % (35-52); HEMOGLOBIN 9.9 g/dL (11.5-16.0); MEAN CORPUSCULAR HEMOGLOBIN 31 pg (25-34); MEAN CORPUSCULAR HGB CONC 31 g/dL (32-36); MEAN CORPUSCULAR VOLUME 102 fL (80-99); MEAN PLATELET VOLUME 10.4 fL (9.0-12.2); PLATELET COUNT 334 10^3/uL (130-400); WHITE BLOOD COUNT 14.5 10^3/uL (4.3-11.0)
[2023-02-22 06:37] LABS: POTASSIUM 3.7 MMOL/L (3.6-5.0)
[2023-02-22 06:38] LABS: CALCIUM 8.3 MG/DL (8.5-10.1)
[2023-02-22 06:40] LABS: TOTAL PROTEIN 5.3 GM/DL (6.4-8.2)
[2023-02-22 06:41] LABS: BILIRUBIN,TOTAL 0.4 MG/DL (0.1-1.0)
[2023-02-22 06:43] LABS: CREATININE SERUM 1.59 MG/DL (0.60-1.30)
[2023-02-22] MEDS: RT-Ipratropium/Albuterol NEB 3 ML VIAL INH SCH ×4 (07:17→19:16)
[2023-02-22] MEDS: GABAPENTIN 300 MG CAPSULE PO SCH ×3 (08:31→19:21)
[2023-02-22] MEDS: LOSARTAN 50 MG TABLET PO SCH ×2 (08:31→19:21)
[2023-02-22] MEDS: PANTOPRAZOLE 40 MG TABLET PO SCH (08:31)
[2023-02-22] MEDS ORDERED: AMLO-250 PO (08:59)
[2023-02-22] MEDS ORDERED: ALLO100T PO (08:59)
[2023-02-22] MEDS ORDERED: RT-ALBUINH PO (08:59)
[2023-02-22] MEDS ORDERED: ALPR0.254 PO (08:59)
[2023-02-22] MEDS ORDERED: COLC0.6T59 PO (08:59)
[2023-02-22] MEDS: HYDROcodone/ACETAMINOPHEN 5 MG/325 MG TABLET PO PRN ×3 (10:26→23:10)
[2023-02-22] MEDS: fentaNYL INJECTION 100 MCG/2 ML VIAL IV PRN (10:32)
--- NOTE | 2023-02-22 10:38 | Progress Note-Pre Operative ---
Pre-Operative Progress Note Date H&P Reviewed: Feb 22, 2023 Time H&P Reviewed: 10:30 History & Physical: H&P Reviewed, Patient Examed, No changes noted Pre-Operative Diagnosis: Acute Appendicitis MURIEL ARRIETA ACCOUNTING MANAGER CPA Feb 22, 2023 10:38
--- NOTE | 2023-02-22 11:48 | Cardiology Progress Note ---
Subjective Date Seen by Provider: Feb 22, 2023 Time Seen by Provider: 10:40 Subjective/Events-last exam Patient is sitting up in bed, no new complaints. Objective-Cardiology Exam Last Set of Vital Signs Vital Signs 02/22/23 12:14 Temp 36.6 Pulse 77 Resp 14 B/P (MAP) 144/62 (89) Pulse Ox 94 O2 Delivery Nasal Cannula O2 Flow Rate 2.00 I&O Intake and Output 02/22/23 00:00 Intake Total 3420 ml Output Total 975 ml Balance 2445 ml Intake Oral 2020 ml IV Total 1400 ml Output Urine Total 975 ml # Voids 2 General: Alert, Oriented X3, Cooperative HEENT: Atraumatic, PERRLA Lungs: Clear to Auscultation, Normal Air Movement Heart: Regular Rate, Normal S1, Normal S2 Abdomen: Normal Bowel Sounds, Soft Extremities: No Edema Skin: No Rashes, No Significant Lesion Neuro: Normal Speech, Cranial Nerves 3-12 NL Psych/Mental Status: Mental Status NL, Mood NL Results Lab Laboratory Tests 02/22/23 06:12 A/P-Cardiology Admission Diagnosis Appendicitis CAD HTN CANDICE Assessment/Plan Acute appendicitis,planning for OR today with Dr. CANELA. On Cipro and Flagyl. No absolute cardiology contraindication to appendicitis surgery. Moderate perioperative risk for major adverse cardiac events undergoing a moderate risk abdominal surgery. Hypertension, controlled, continue to monitor. Echocardiogram shows normal LV function with significant LVH. - MPI on 09/23/21: no ischemia or infarct CAD: - H/o cor stents (LAD and diag) with Dr Whitley. - Cardiac cath of October 16, 2019: Coronary artery disease consisting primarily of 70% in-stent restenosis of the left anterior descending (fractional flow reserve 0.8). To this, successful balloon angioplasty was carried out. The left anterior descending has approximately 50% bifurcation stenosis. The left circumflex artery has a 50% stenosis in its proximal to mid portion and 70% stenosis in its mid to distal portion and fractional flow reserve across a combination of these lesions is 0.89, indicating hemodynamic insignificance. Right coronary artery is dominant and has a patent stent in its distal portion. The right coronary artery has mild to moderate diffuse disease. Mildly elevated left ventricular end-diastolic pressure. - MPI of 04/02/20: no ischemia or infarction, LVEF 64% - MPI of 11/18/20: no ischemia or infarct, LVEF 62% - Echo of 11/16/20: LVEF 55-65%, mild MR and trivial AI, PASP 35-45 mmHg - Echo on 09/22/21: LVEF 55-60%, PASP 30 -35 mmHg - MPI on 09/23/21: no ischemia or infarct Renal artery stenosis - H/o bilateral renal artery stents with Dr Whitley. Mod bilat renal artery stenoses on renal a angio of 03/09/16 (Dr Vasquez) - Renal artery duplex on 06-25-21 at [facility] by Dr. Carrillo showed Renal arteries and veins are patent bilat. Patent stents bilat in the prox segments of the renal arteries with no evidence of flow acceleration to suggest hemodynamically signif stenosis. No high grade stenosis DM II - managed by PCP CKD 4, - probably diabetic nephropathy, followed and treated by her golf course laborer Dr Ramirez Chronic back pain - managed by PCP Bilateral leg discomfort, - No evidence of PAD of the lower limbs, per segmentals of Mar 2020 Chronic tobacco use, - quit in 2011 COPD - managed by PCP AUDIE - treated with CPAP Myeloproliferative disorder - with leuckocytosis and thrombocytosis and chronic anemia - managed by [facility] [place], [place] Carotid dz: - Mild carotid art disease on carotid u/s of Mar 2020 No evidence of AAA per scan of Mar 2020 Chronic back pain and cervical radiculopathy - followed and treated by her spine surgeon Bilat leg swelling - due to venous insuff and, possibly, CCB therapy Multinodular thyroid goiter - followed by her oncologist HLD - refuses statin tx d/t reported intolerance Supervisory-Addendum Brief Supervisory Addendum Participated in pt care: history, MDM, physical Personally performed: exam, history, MDM Care discussed with: JACQUELINE Results interpretation: Verified all documentation Notes: Patient was seen and evaluated with Aileen, examination performed, management plan was discussed, agree with the current scribed note, I made few changes to the note using Italic font Patient is scheduled for appendectomy today Sitting comfortably, feeling better Continue to monitor closely, monitor blood pressure and telemetry AILEEN CHANDLER Feb 22, 2023 11:48 DANIEL GARCÍA MD Feb 22, 2023 13:45
[2023-02-22] MEDS ORDERED: LIDOCAINE 1% w/EPI 1:100,000 20 ML VIAL ONE (14:26)
[2023-02-22] MEDS ORDERED: MIDAZOLAM INJ 2 MG/2 ML VIAL ONE (15:01)
[2023-02-22] MEDS ORDERED: proPOfol INJECTION 200 MG/20 ML VIAL IV ONE (15:01)
[2023-02-22] MEDS ORDERED: ROCURONIUM 50 MG/5 ML VIAL IV ONE (15:01)
[2023-02-22] MEDS ORDERED: ONDANSETRON INJECTION 4 MG/2 ML (SDV) ONE (15:01)
[2023-02-22] MEDS ORDERED: LIDOCAINE PF 2% 5 ML VIAL ONE (15:01)
[2023-02-22] MEDS ORDERED: SEVOFLURANE (ULTANE) 15 ML INHAL SOLN ONE ×2 (15:01→16:50)
[2023-02-22] MEDS ORDERED: fentaNYL INJECTION 100 MCG/2 ML VIAL ONE (15:01)
[2023-02-22] MEDS ORDERED: LACTATED RINGERS 1,000 ML 1,000 ML IV PRN (15:15)
[2023-02-22] MEDS ORDERED: LIDOCAINE 1% w/EPI 1:100,000 20 ML VIAL INJ ONE (15:40)
[2023-02-22] MEDS ORDERED: GLYCOPYRROLATE INJ 0.2 MG/ML 2 ML VIAL ONE (16:54)
[2023-02-22] MEDS ORDERED: NEOSTIGMINE 1 MG/1ML 10 ML VIAL ONE (16:54)
--- NOTE | 2023-02-22 17:07 | Progress Note-Post Operative ---
Post-Operative Progess Note Surgeon (s)/Coke Still Cleaner (s) Surgeon CYNTHIA CANELA MD Coke Still Cleaner: rajiv torres [employer] Pre-Operative Diagnosis Acute Appendicitis Post-Operative Diagnosis right ovarain cyst, left reducible inguinal hernia Procedure & Operative Findings Date of Procedure 02/22/23 Procedure Performed/Findings diagnostic laparoscopy, perineal bx and washings. Anesthesia Type get Estimated Blood Loss Estimated blood loss (mL): minimal Specimens/Packing Specimens Removed peritoneal lesion and washings. CYNTHIA CANELA MD Feb 22, 2023 17:07
[2023-02-22] MEDS ORDERED: HYDR-3817 PO (17:18)
--- NOTE | 2023-02-22 17:19 | Discharge Inst-Surgical ---
D/C Lap Instructions-HILTON New, Converted, or Re-Newed RX: RX on Chart Follow Up Appt in 2 weeks Activity as tolerated No driving for 24 hours No driving while on pain medications Incentive Spirometry use every 2 hours while awake Regular Diet Symptoms to Report: Fever over 101 degree F, Nausea/Vomiting Infection Signs and Symptoms to report: Increased redness, Foul odor of wound, Increased drainage Bathing instructions: May shower Operative Area Clean/Dry; Keep incision clean/dry If any problems/questions: Contact your physician or go to Emergency Room CYNTHIA CANELA MD Feb 22, 2023 17:19
[2023-02-22] MEDS ORDERED: ONDANSETRON INJECTION 4 MG/2 ML (SDV) IVP PRN (18:00)
[2023-02-22] MEDS ORDERED: fentaNYL INJECTION 100 MCG/2 ML VIAL IVP ONE (18:00)
[2023-02-22] MEDS: BISOPROLOL 5 MG TABLET PO SCH (19:21)
[2023-02-22] MEDS: ISOSORBIDE MONONITRATE 60 MG TABLET PO SCH (19:21)
--- NOTE | 2023-02-23 01:19 | OPERATIVE REPORT ---
DATE OF SERVICE: 02/22/2023 ATTENDING PRIMARY CARE PHYSICIAN: Dr. Tone Perez. PREOPERATIVE DIAGNOSIS: Acute appendicitis. POSTOPERATIVE DIAGNOSIS: Right ovarian cyst reducible left inguinal hernia. PROCEDURE: Diagnostic laparoscopy, peritoneal biopsy and washings. SURGEON: Cynthia Canela MD PRECISION AGRICULTURE SPECIALIST: Nick Lui APRN ANESTHESIA: General endotracheal. ESTIMATED BLOOD LOSS: Minimal. FINDINGS: Same as postoperative diagnosis. DISPOSITION: The patient tolerated the procedure well. INDICATIONS: The patient is a 77-year-old female who has had a several-week history of right-sided abdominal pain. She states that this has worsened in the past few days and then decided to present to the Emergency Department. She reports that she was taking Tylenol at home for the pain, which did help some. She also did report some nausea; however, no vomiting. The patient also does have a number of other medical comorbidities including stage III renal failure, COPD, CHF, and type 2 diabetes. She underwent workup, which included a CT scan, which was read as having a borderline dilated appendix and she also did have a leukocytosis of 17,000. The patient was also on anticoagulation with aspirin and Plavix. It was decided to proceed with medical management initially with IV fluids, IV antibiotics as well as bowel rest. DESCRIPTION OF PROCEDURE: The patient was brought to the operating room, laid supine on the table. After adequate IV pain and sedative medications and general endotracheal intubation, the abdomen was prepped and draped in standard surgical fashion. A 0.5% Marcaine with epinephrine was used to anesthetize the overlying skin in the left upper abdominal quadrant and a transverse skin incision made using a #15 blade. An 0 silk suture was applied to the medial aspect of the incision for retraction and a Veress needle inserted with a low opening pressure of 0 mmHg and the abdomen was then insufflated to 15 mmHg pressure. The Veress needle removed and a 5 mm trocar placed followed by a 5 mm 45-degree angle laparoscope visualized the peritoneal cavity. There were some omental adhesions from what appeared to be 2 previous midline laparotomy incisions. Under direct visualization, we then proceeded to place a supraumbilical 10 mm port after the skin and peritoneal lining were anesthetized using 0.5% Marcaine with epinephrine and a transverse skin incision made using a #15 blade. In a similar manner, a suprapubic 5 mm port was placed. A 4-quadrant abdominal exploration was performed. We identified the cecum as well as the terminal ileum and the ileocecal fat fold of Treves. The appendix was not identified and the lateral white line of Toldt attachments were taken down using electrocautery. We proceeded in this direction where no appendix was identified retrocecally. We continued with our dissection until the hepatic flexure was reached and again the appendix was not identified. We then ran the entire small bowel to the ligament of Treitz with no Meckel's diverticulum or any inflammatory changes identified. In the pelvis, it appeared that she had a surgically absent uterus. However, she had bilateral ovaries. There was a right ovarian cyst identified as well as clear fluid within the pelvis, which may likely indicated a right ovarian cyst. This fluid was sent for pathology. During the dissection, a portion of the ovary did break off and this was sent for pathology as well. The liver was visualized and there were postsurgical changes with a cholecystectomy. There were no liver lesions, nor any stomach lesions identified. The entirety of the colon appeared normal as well. There was a left inguinal hernia identified, which was easily reducible and nothing within the hernia sac. At this time, it was decided to stop with the procedure and treat her medically. The 10 mm port site fascia and peritoneum were then closed under direct visualization using a Saad-Iraida device and 0 Vicryl suture. The abdomen was desufflated and remaining ports removed. All skin incisions were closed using 4-0 Monocryl running subcuticular sutures. Wounds were then cleaned and covered with Dermabond. The patient tolerated the procedure well. We will readmit her back to the floor and start a regular diet. When she is ambulating well, has good pain control with oral pain medication and tolerating a diet, we will then discharge her home. Job ID: [id number] DocumentID: [id number] Dictated Date: 02/22/2023 17:17:57 Sports Intern Date: 02/23/2023 01:16:00 Dictated By: CYNTHIA CANELA MD
[2023-02-23] MEDS: NS IV 1000 ML 1,000 ML IV SCH ×2 (02:04→14:38)
[2023-02-23 03:43] VITALS: BP 124/58
[2023-02-23] MEDS: metroNIDAZOLE 500MG/100ML IVPB 100 ML IV SCH (05:42)
[2023-02-23] MEDS: HYDROcodone/ACETAMINOPHEN 5 MG/325 MG TABLET PO PRN ×3 (05:46→20:21)
[2023-02-23] MEDS: fentaNYL INJECTION 100 MCG/2 ML VIAL IV PRN ×3 (05:54→13:54)
[2023-02-23] MEDS: GLIMEPIRIDE 2 MG TABLET PO SCH (06:09)
[2023-02-23] MEDS: CIPROFLOXACIN IV 400MG/200ML 200 ML IV SCH (06:34)
[2023-02-23] MEDS: RT-Ipratropium/Albuterol NEB 3 ML VIAL INH SCH ×4 (07:31→20:33)
[2023-02-23 08:02] VITALS: BP 128/58
[2023-02-23] MEDS: GABAPENTIN 300 MG CAPSULE PO SCH ×3 (08:19→20:09)
[2023-02-23] MEDS: PANTOPRAZOLE 40 MG TABLET PO SCH (08:20)
[2023-02-23] MEDS: LOSARTAN 50 MG TABLET PO SCH ×2 (08:20→20:09)
--- NOTE | 2023-02-23 08:21 | Cardiology Progress Note ---
Subjective Date Seen by Provider: Feb 23, 2023 Time Seen by Provider: 08:20 Subjective/Events-last exam Patient was seen at bedside, laying down comfortably Complaining of abdominal pain Review of Systems General: No Chills, No Night Sweats, No Fatigue, No Malaise, No Appetite, No Other HEENT: No Head Aches, No Visual Changes, No Eye Pain, No Ear Pain, No Dysphasia, No Sinus Congestion, No Post Nasal Drip, No Sore Throat, No Other Pulmonary: No Dyspnea, No Cough, No Pleuritic Chest Pain, No Other Cardiovascular: No: Chest Pain, Palpitations, Orthopnea, Paroxysmal Noc. Dyspnea, Edema, Lt Headedness, Other Objective-Cardiology Exam Last Set of Vital Signs Vital Signs 02/23/23 08:02 Temp 36.6 Pulse 78 Resp 17 B/P (MAP) 128/58 (81) Pulse Ox 94 O2 Delivery Nasal Cannula O2 Flow Rate 2.50 I&O Intake and Output 02/23/23 00:00 Intake Total 1600 ml Output Total 400 ml Balance 1200 ml Intake Oral 200 ml IV Total 1400 ml Output Urine Total 400 ml # Voids 1 General: Alert, Oriented X3, Cooperative HEENT: Atraumatic, PERRLA Neck: Supple, No JVD Lungs: Clear to Auscultation, Normal Air Movement Heart: Regular Rate, Normal S1, Normal S2 Abdomen: Normal Bowel Sounds, Soft, Other (Diffuse abdominal discomfort) Extremities: No Edema Skin: No Rashes, No Significant Lesion Neuro: Normal Speech, Cranial Nerves 3-12 NL Psych/Mental Status: Mental Status NL, Mood NL A/P-Cardiology Admission Diagnosis Appendicitis CAD HTN CANDICE Assessment/Plan Abdominal pain, underwent exploratory laparoscopy with ovarian cyst noted. Managed by surgical team Still having active pain Hypertension, controlled, continue to monitor. Echocardiogram shows normal LV function with significant LVH. - MPI on 09/23/21: no ischemia or infarct CAD: - H/o cor stents (LAD and diag) with Dr Whitley. - Cardiac cath of October 16, 2019: Coronary artery disease consisting primarily of 70% in-stent restenosis of the left anterior descending (fractional flow reserve 0.8). To this, successful balloon angioplasty was carried out. The left anterior descending has approximately 50% bifurcation stenosis. The left circumflex artery has a 50% stenosis in its proximal to mid portion and 70% stenosis in its mid to distal portion and fractional flow reserve across a combination of these lesions is 0.89, indicating hemodynamic insignificance. Right coronary artery is dominant and has a patent stent in its distal portion. The right coronary artery has mild to moderate diffuse disease. Mildly elevated left ventricular end-diastolic pressure. - MPI of 04/02/20: no ischemia or infarction, LVEF 64% - MPI of 11/18/20: no ischemia or infarct, LVEF 62% - Echo of 11/16/20: LVEF 55-65%, mild MR and trivial AI, PASP 35-45 mmHg - Echo on 09/22/21: LVEF 55-60%, PASP 30 -35 mmHg - MPI on 09/23/21: no ischemia or infarct Renal artery stenosis - H/o bilateral renal artery stents with Dr Whitley. Mod bilat renal artery stenoses on renal a angio of 03/09/16 (Dr Vasquez) - Renal artery duplex on 06-25-21 at [facility] by Dr. Carrillo showed Renal arteries and veins are patent bilat. Patent stents bilat in the prox segments of the renal arteries with no evidence of flow acceleration to suggest hemodynamically signif stenosis. No high grade stenosis DM II - managed by PCP CKD 4, - probably diabetic nephropathy, followed and treated by her mantel craftsman Dr Ramirez Chronic back pain - managed by PCP Bilateral leg discomfort, - No evidence of PAD of the lower limbs, per segmentals of Mar 2020 Chronic tobacco use, - quit in 2011 COPD - managed by PCP AUDIE - treated with CPAP Myeloproliferative disorder - with leuckocytosis and thrombocytosis and chronic anemia - managed by [facility] at [place], [place] Carotid dz: - Mild carotid art disease on carotid u/s of Mar 2020 No evidence of AAA per scan of Mar 2020 Chronic back pain and cervical radiculopathy - followed and treated by her spine surgeon Bilat leg swelling - due to venous insuff and, possibly, CCB therapy Multinodular thyroid goiter - followed by her oncologist HLD - refuses statin tx d/t reported intolerance DANIEL GARCÍA MD Feb 23, 2023 08:21
[2023-02-23 12:34] VITALS: BP 145/65
--- NOTE | 2023-02-23 14:15 | Anesthesia-General Post-Op ---
General Patient Condition Mental Status/LOC: Same as Preop Cardiovascular: Satisfactory Nausea/Vomiting: Absent Respiratory: Satisfactory Pain: Controlled Complications: Absent Post Op Complications Complications None Follow Up Care/Instructions Patient Instructions None needed. Anesthesia/Patient Condition Patient Condition Patient is doing well, no complaints, stable vital signs, no apparent adverse anesthesia problems. No complications reported per nursing. NUBIA PERKINS CRNA Feb 23, 2023 14:15
--- NOTE | 2023-02-23 15:42 | Progress Note ---
Subjective Date Seen by a Provider: Feb 23, 2023 Time Seen by a Provider: 15:00 Subjective/Events-last exam doing ok. still having some pain issues. tolerating diet. no fever/chills. Objective Exam Vital Signs Date Time Temp Pulse Resp B/P (MAP) Pulse Ox O2 Delivery O2 Flow Rate FiO2 02/23/23 14:02 90 Nasal Cannula 3.00 02/23/23 12:34 37.3 78 18 145/65 (91) 93 Nasal Cannula 2.50 02/23/23 11:23 96 Nasal Cannula 3.00 02/23/23 08:02 36.6 78 17 128/58 (81) 94 Nasal Cannula 2.50 02/23/23 08:00 Nasal Cannula 2.50 02/23/23 07:32 97 Nasal Cannula 2.00 02/23/23 03:43 37.4 67 20 124/58 (80) 97 Nasal Cannula 3.00 02/22/23 23:08 37.6 69 18 144/61 (88) 97 Nasal Cannula 3.00 02/22/23 20:32 36.4 66 18 162/70 (100) 95 Nasal Cannula 3.00 02/22/23 19:16 94 Nasal Cannula 2.00 02/22/23 19:15 Nasal Cannula 2.00 02/22/23 18:20 Nasal Cannula 3.00 02/22/23 18:20 36.4 20 151/63 (92) 96 Nasal Cannula 3.00 02/22/23 18:16 Nasal Cannula 3.00 02/22/23 18:10 18 150/64 (92) 95 Nasal Cannula 3.00 02/22/23 18:05 Nasal Cannula 3.00 02/22/23 18:00 18 145/96 (112) 92 Nasal Cannula 3.00 02/22/23 17:55 OxyMask 4.00 02/22/23 17:50 18 154/76 (102) 95 Nasal Cannula 4.00 02/22/23 17:45 OxyMask 4.00 02/22/23 17:43 OxyMask 4.00 02/22/23 17:40 18 142/68 (92) 95 OxyMask 4.00 02/22/23 17:32 OxyMask 4.00 02/22/23 17:30 18 140/87 (104) 97 OxyMask 4.00 02/22/23 17:29 OxyMask 6.00 02/22/23 17:20 OxyMask 6.00 02/22/23 17:20 18 143/66 (91) 93 OxyMask 6.00 02/22/23 17:10 36.2 18 116/52 (73) 94 OxyMask 6.00 02/22/23 17:10 OxyMask 6.00 I & O 02/23/23 07:00 Intake Total 1600 ml Output Total 300 ml Balance 1300 ml Capillary Refill : General Appearance: No Apparent Distress HEENT: PERRL/EOMI Neck: Full Range of Motion Respiratory: Chest Non Tender, Decreased Breath Sounds, Rhonci Cardiovascular: Regular Rate, Rhythm Gastrointestinal: normal bowel sounds, soft, tenderness Extremity: Normal Capillary Refill Neurologic/Psychiatric: Alert, Oriented x3 Skin: Normal Color Lymphatic: No Adenopathy Results Lab Microbiology 02/20/23 MRSA Screen - Final, Complete MRSA not isolated Assessment/Plan Assessment/Plan Assess & Plan/Chief Complaint abd pain s/p diagnostic laparoscopy and washings. increase ambulation. encourage PO. will need [employer] referral as an OP CYNTHIA CANELA MD Feb 23, 2023 15:42
[2023-02-23 15:46] VITALS: BP 131/69
[2023-02-23] MEDS ORDERED: CIPR500T5 PO (17:52)
[2023-02-23] MEDS ORDERED: METR-145 PO (17:52)
[2023-02-23 18:22] VITALS: BP 131/69
[2023-02-23] MEDS: BISOPROLOL 5 MG TABLET PO SCH (20:08)
[2023-02-23] MEDS: metroNIDAZOLE 500 MG TABLET PO SCH (20:08)
[2023-02-23] MEDS: ISOSORBIDE MONONITRATE 60 MG TABLET PO SCH (20:08)
[2023-02-23] MEDS ORDERED: CIPROFLOXACIN 500 MG TABLET PO SCH (21:00)
[2023-02-24 00:01] VITALS: BP 133/61
[2023-02-24 03:49] VITALS: BP 124/58
[2023-02-24] MEDS: GLIMEPIRIDE 2 MG TABLET PO SCH (05:42)
[2023-02-24] MEDS: RT-Ipratropium/Albuterol NEB 3 ML VIAL INH SCH ×2 (07:03→11:44)
[2023-02-24 07:36] VITALS: BP 132/60
[2023-02-24] MEDS: metroNIDAZOLE 500 MG TABLET PO SCH (08:51)
[2023-02-24] MEDS: GABAPENTIN 300 MG CAPSULE PO SCH (08:51)
[2023-02-24] MEDS: LOSARTAN 50 MG TABLET PO SCH (08:51)
[2023-02-24] MEDS: PANTOPRAZOLE 40 MG TABLET PO SCH (08:51)
[2023-02-24] MEDS: fentaNYL INJECTION 100 MCG/2 ML VIAL IV PRN (08:54)
[2023-02-24] MEDS: HYDROcodone/ACETAMINOPHEN 5 MG/325 MG TABLET PO PRN (09:05)
--- NOTE | 2023-02-24 10:35 | Cardiology Progress Note ---
Subjective Date Seen by Provider: Feb 24, 2023 Time Seen by Provider: 10:34 Subjective/Events-last exam Patient sitting up in bed, complaining of abdominal pain. Objective-Cardiology Exam Last Set of Vital Signs Vital Signs 02/23/23 02/24/23 18:22 11:34 Temp 37.6 Pulse 75 Resp 18 B/P (MAP) 129/63 (85) Pulse Ox 97 O2 Delivery Nasal Cannula O2 Flow Rate 3.00 FiO2 28 I&O Intake and Output 02/24/23 00:00 Intake Total 2200 ml Output Total 400 ml Balance 1800 ml Intake Oral 900 ml IV Total 1300 ml Output Urine Total 400 ml # Voids 2 General: Alert, Oriented X3, Cooperative HEENT: Atraumatic, PERRLA Neck: Supple, No JVD Lungs: Clear to Auscultation, Normal Air Movement Heart: Regular Rate, Normal S1, Normal S2 Abdomen: Normal Bowel Sounds, Soft, Other (Diffuse abdominal discomfort) Extremities: No Edema Skin: No Rashes, No Significant Lesion Neuro: Normal Speech, Cranial Nerves 3-12 NL Psych/Mental Status: Mental Status NL, Mood NL A/P-Cardiology Admission Diagnosis Appendicitis CAD HTN CANDICE Assessment/Plan Abdominal pain, underwent exploratory laparoscopy with ovarian cyst noted. Managed by surgical team Still having active pain Hypertension, controlled, continue to monitor. Echocardiogram shows normal LV function with significant LVH. - MPI on 09/23/21: no ischemia or infarct CAD: - H/o cor stents (LAD and diag) with Dr Whitley. - Cardiac cath of October 16, 2019: Coronary artery disease consisting primarily of 70% in-stent restenosis of the left anterior descending (fractional flow reserve 0.8). To this, successful balloon angioplasty was carried out. The left anterior descending has approximately 50% bifurcation stenosis. The left circumflex artery has a 50% stenosis in its proximal to mid portion and 70% stenosis in its mid to distal portion and fractional flow reserve across a combination of these lesions is 0.89, indicating hemodynamic insignificance. Right coronary artery is dominant and has a patent stent in its distal portion. The right coronary artery has mild to moderate diffuse disease. Mildly elevated left ventricular end-diastolic pressure. - MPI of 04/02/20: no ischemia or infarction, LVEF 64% - MPI of 11/18/20: no ischemia or infarct, LVEF 62% - Echo of 11/16/20: LVEF 55-65%, mild MR and trivial AI, PASP 35-45 mmHg - Echo on 09/22/21: LVEF 55-60%, PASP 30 -35 mmHg - MPI on 09/23/21: no ischemia or infarct Renal artery stenosis - H/o bilateral renal artery stents with Dr Whitley. Mod bilat renal artery stenoses on renal a angio of 03/09/16 (Dr Vasquez) - Renal artery duplex on 06-25-21 at [facility] by Dr. Carrillo showed Renal arteries and veins are patent bilat. Patent stents bilat in the prox segments of the renal arteries with no evidence of flow acceleration to suggest hemodynamically signif stenosis. No high grade stenosis DM II - managed by PCP CKD 4, - probably diabetic nephropathy, followed and treated by her certified rehabilitation counselor Dr Dante mariee Chronic back pain - managed by PCP Bilateral leg discomfort, - No evidence of PAD of the lower limbs, per segmentals of Mar 2020 Chronic tobacco use, - quit in 2011 COPD - managed by PCP AUDIE - treated with CPAP Myeloproliferative disorder - with leuckocytosis and thrombocytosis and chronic anemia - managed by [facility] at [place], [place] Carotid dz: - Mild carotid art disease on carotid u/s of Mar 2020 No evidence of AAA per scan of Mar 2020 Chronic back pain and cervical radiculopathy - followed and treated by her spine surgeon Bilat leg swelling - due to venous insuff and, possibly, CCB therapy Multinodular thyroid goiter - followed by her oncologist HLD - refuses statin tx d/t reported intolerance Supervisory-Addendum Brief Supervisory Addendum Participated in pt care: history, MDM, physical Personally performed: exam, history, MDM Care discussed with: JACQUELINE Results interpretation: Verified all documentation Notes: Patient was seen and evaluated with Aileen, examination performed, management plan was discussed, agree with the current scribed note, I made few changes to the note using Italic font Patient was seen at bedside, sitting comfortably Still having mild abdominal pain Discussed the need for gynecology evaluation Monitor blood pressure Patient is requesting to follow-up with me as an outpatient, I will arrange for an appointment AILEEN CHANDLER Feb 24, 2023 10:35 DANIEL GARCÍA MD Feb 24, 2023 13:53
[2023-02-24] MEDS ORDERED: ONDANSETRON 4 MG ORAL DISSOLVE TABLET PO PRN (10:45)
[2023-02-24 11:34] VITALS: BP 129/63
[2023-02-24] MEDS ORDERED: CIPROFLOXACIN 500 MG TABLET PO SCH (21:00)
== END 2023-02-24 13:55 | disposition home or self-care (01) | DRG 749 ==
LOC: EDUNIT# 00:27 → ER 00:30 → 4TH 05:12
PROVIDERS: ADMIT Surgery; ATTEND Surgery
PROC: 0D9W4ZX Drainage of Peritoneum, Percutaneous Endoscopic Approach, Diagnostic (ICD-10-PCS; principal; 2023-02-22 15:09)
DX: N83.201 Unspecified ovarian cyst, right side (principal); D47.1 Chronic myeloproliferative disease; I13.0 Hypertensive heart and chronic kidney disease with heart failure and stage 1 through stage 4 chronic kidney disease, or unspecified chronic kidney disease; N18.4 Chronic kidney disease, stage 4 (severe); I50.9 Heart failure, unspecified; K40.90 Unilateral inguinal hernia, without obstruction or gangrene, not specified as recurrent; E11.22 Type 2 diabetes mellitus with diabetic chronic kidney disease; I70.1 Atherosclerosis of renal artery; J44.9 Chronic obstructive pulmonary disease, unspecified; I25.10 Atherosclerotic heart disease of native coronary artery without angina pectoris; F17.210 Nicotine dependence, cigarettes, uncomplicated; E11.51 Type 2 diabetes mellitus with diabetic peripheral angiopathy without gangrene; I87.2 Venous insufficiency (chronic) (peripheral); G47.33 Obstructive sleep apnea (adult) (pediatric); E78.00 Pure hypercholesterolemia, unspecified; R32 Unspecified urinary incontinence; E04.2 Nontoxic multinodular goiter; M48.02 Spinal stenosis, cervical region; M79.7 Fibromyalgia; E27.9 Disorder of adrenal gland, unspecified; H54.3 Unqualified visual loss, both eyes; H91.90 Unspecified hearing loss, unspecified ear; I25.2 Old myocardial infarction; Z79.84 Long term (current) use of oral hypoglycemic drugs; Z95.5 Presence of coronary angioplasty implant and graft; Z95.820 Peripheral vascular angioplasty status with implants and grafts; Z79.899 Other long term (current) drug therapy; Z79.82 Long term (current) use of aspirin; Z79.02 Long term (current) use of antithrombotics/antiplatelets; Z88.5 Allergy status to narcotic agent; Z91.09 Other allergy status, other than to drugs and biological substances
CPT/HCPCS: 36415; 74176; 80053; 81000; 85007; 85027; 87081; 93306; 94640; 94664; 94760

== ENCOUNTER → 2023-03-12 | Outpatient (CLI) | payer MEDICARE ==
[~2023-03-12] MED LIST changes: +ALLO100T PO; +ALPR0.254 PO; +CIPR500T5 PO; +COLC0.6T59 PO; +HYDR-3817 PO; +METR-145 PO; +RT-ALBUINH PO
[2023-03-12 11:18] LABS: HEMATOCRIT 34 % (35-52); HEMOGLOBIN 10.4 g/dL (11.5-16.0); MEAN CORPUSCULAR HEMOGLOBIN 30 pg (25-34); MEAN CORPUSCULAR HGB CONC 31 g/dL (32-36); MEAN CORPUSCULAR VOLUME 96 fL (80-99); MEAN PLATELET VOLUME 10.2 fL (9.0-12.2); PLATELET COUNT 382 10^3/uL (130-400); WHITE BLOOD COUNT 13.2 10^3/uL (4.3-11.0)
[2023-03-12 11:33] LABS: ALBUMIN 3.6 GM/DL (3.2-4.5)
[2023-03-12 11:35] LABS: CALCIUM 9.1 MG/DL (8.5-10.1)
[2023-03-12 11:36] LABS: TOTAL PROTEIN 6.5 GM/DL (6.4-8.2)
[2023-03-12 11:38] LABS: BILIRUBIN,TOTAL 0.7 MG/DL (0.1-1.0)
[2023-03-12 11:39] LABS: CREATININE SERUM 1.45 MG/DL (0.60-1.30)
== END ==
LOC: LAB 10:59
PROVIDERS: ATTEND Nurse Practitioner Family
DX: R10.9 Unspecified abdominal pain (principal); R11.0 Nausea
CPT/HCPCS: 36415; 80053; 85027

== ENCOUNTER → 2023-03-30 | Outpatient (CLI) | payer MEDICARE ==
[~2023-03-30] MED LIST changes: +AMOX1TAB11 PO
--- NOTE | 2023-03-30 14:47 | Diagnostic Imaging Report ---
PROCEDURE: Pelvic comp/transvaginal sonogram. TECHNIQUE: Complete transabdominal and transvaginal pelvic ultrasound was performed. In addition, limited pelvic Doppler was performed. INDICATION: Complex ovarian cyst. Patient is status post hysterectomy in 1974. FINDINGS: The uterus is surgically absent. The right ovary measures 3.0 x 2.3 x 3.8 cm and the left ovary measures 3.1 x 1.2 x 2.6 cm. No ovarian mass is detected. There is blood flow to the ovaries. No free fluid is detected. IMPRESSION: Status post hysterectomy. The study is otherwise unremarkable. Dictated by: Dictated on workstation # [id number]
--- NOTE | 2023-03-30 16:13 | Diagnostic Imaging Report ---
INDICATION: Routine screening. COMPARISON: 07/11/2019 and 07/22/2018. TECHNIQUE: 2D and 3D bilateral screening mammography was performed with CAD. FINDINGS: Both breasts are heterogeneously dense, limiting the sensitivity of mammography. The nodular densities in both breasts are stable. There are benign calcifications in both breasts. No spiculated mass or malignant-appearing microcalcifications are seen. The axillae are unremarkable. IMPRESSION: No mammographic features suspicious for malignancy are identified. ACR BI-RADS Category 2: Benign findings. Result letter will be mailed to the patient. Note: At least 10% of breast cancer is not imaged by mammography. Dictated by: Dictated on workstation # [id number]
--- NOTE | 2023-03-30 17:48 | Diagnostic Imaging Report ---
INDICATION: Postmenopausal female. COMPARISON: None. FINDINGS: AP Spine L2-L4: [BMD (g/cm2): 1.096] [T-Score: -0.9] [Z-Score: 0.8] [BMD Previous: NA] [BMD % Change: NA] LT Hip Neck: [BMD (g/cm2): 0.786] [T-Score: -1.8] [Z-Score: 0.2] LT Hip Total: [BMD (g/cm2):0.940] [T-Score:-0.5] [Z-Score: 1.3] [BMD Previous: NA] [BMD % Change: NA] RT Hip Neck: [BMD (g/cm2):0.820] [T-Score:-1.6] [Z-Score:0.5] RT Hip Total: [BMD (g/cm2):0.937] [T-score:-0.6] [Z-Score:1.3] [BMD Previous:NA] [BMD % Change:NA] *Indicates significant change from prior examination based on 95% confidence level. World Health Organization criteria for BMD interpretation classify patients as Normal (T-score at or above -1.0), Osteopenic (T-score between -1.0 and -2.5) or Osteoporotic (T-score at or below -2.5). LIMITATIONS AND MODIFICATION: Degenerative change in the lumbar spine may falsely elevate bone density. FRACTURE RISK (FRAX SCORE): The ten year probability of (%): Major Osteoporotic Fracture: [19.9] Hip Fracture: [8.6] IMPRESSION: 1. Osteopenia (Low bone mass). 2. Baseline examination. 3. See below National Osteoporosis Foundation guidelines on when to potentially initiate pharmacologic therapy. Based on the National Osteoporosis Foundation Guidelines, pharmacologic treatment should be initiated in any of the following, unless clinical conditions suggest otherwise: * Any patient with prior fragility fracture of the hip or vertebrae. A spine fracture indicates 5X risk for subsequent spine fracture and 2X risk for subsequent hip fracture. * Osteoporosis (T-score <-2.5). * Postmenopausal women and men age 50 and older with low bone mass/osteopenia (T-score between -1.0 and -2.5) by DXA and 10-year major osteoporotic fracture greater than 20% or a 10-year probability of hip fracture greater than 3%. These fracture risks are supplied above in the FRAX score, if applicable. * Clinician judgement and/or patient preferences may indicate treatment for people with 10-year fracture probabilities above or below these levels. Dictated by: Dictated on workstation # [id number]
== END ==
LOC: RAD 08:14
PROVIDERS: ATTEND Obstetrics & Gynecology
DX: Z12.31 Encounter for screening mammogram for malignant neoplasm of breast (principal); Z13.820 Encounter for screening for osteoporosis; M85.80 Other specified disorders of bone density and structure, unspecified site; N83.299 Other ovarian cyst, unspecified side
CPT/HCPCS: 76830; 76856; 77063; 77067; 77080

== ENCOUNTER 2023-04-09 02:35 | Emergency (ER) | payer MEDICARE ==
[~2023-04-09] VITALS: Ht 157.5 cm; Wt 68.0 kg
--- NOTE | 2023-04-09 03:03 | ED General ---
General Chief Complaint: General Problems/Pain Stated Complaint: SOA/ELEVATED BLOOD PRESSURE Source of Information: Patient (VERY DIFFICULT HISTORIAN), Old Records History of Present Illness Date Seen by Provider: Apr 09, 2023 Time Seen by Provider: 02:45 Initial Comments PT ARRIVES VIA POV FROM HOME IN [place], [place], WITH C/O ELEVATED BLOOD PRESSURE--THIS IS A CHRONIC PROBLEM FOR YEARS, AND PT CHECKS HER BLOOD PRESSURE AND PULSE NO LESS THAN 4-5 TIMES A DAY EVERY DAY, OFTEN MORE FREQUENTLY THAN THAT. BP RANGES FROM 160'S TO 190'S ON AVERAGE TONIGHT SHE CHECKED IT AT 0015 AND IT WAS 209/92, SO SHE TOOK AN AMLODIPINE. RECHECKED HER BP AND 0055 AND IT WAS 215/88, SO RUSHED HERE PT HAS HAD A MULTITUDE OF VISITS HERE, MANY FOR THIS EXACT SAME COMPLAINT. BP FREQUENTLY OVER 200 SYSTOLIC ON PRIOR ER VISITS. PT IS PRESCRIBED: -BISOPROLOL 10 MG BID -LASIX 20 MG DAILY -AMLODIPINE 5 MG DAILY--ALSO MAY TAKE AN ADDITIONAL 5 MG DAILY PRN -LOSARTAN 50 MG BID -ISOSORBIDE 120 MG DAILY -DOXASOZIN 2 MG IN AM, 4 MG IN PM -PLAVIX 75 MG DAILY -ASA 81 MG DAILY SHE ALSO C/O SHORTNESS OF BREATH--THIS IS CHRONIC FOR YEARS AND IS NO DIFFERENT TONIGHT IN ANY WAY PT HAS COPD, CONTINUES TO SMOKE AT LEAST 1 PPD SHE DOES NOT HAVE HOME O2, BUT HAS CPAP AT FOR SLEEP APNEA SHE HAS ALBUTEROL INHALER, BUT HAS NOT USED IT TONIGHT SHE HAS HAD A NEBULIZER, BUT LOST THE TUBING AND OTHER PARTS, AND HAS NOT HAD ANY MEDICATION FOR IT IN A LONG TIME SHE HAD PFT'S DONE AT [facility] TODAY/YESTERDAY 04/08/23 AND HAD ALBUTEROL INHALER DURING THAT TEST--IS THE ONLY TIME SHE HAS HAD INHALER TODAY. NO CHEST PAIN NO SWELLING IN LEGS/FEET OR PAIN IN CALVES NO DIZZINESS NO HEADACHE NO VISION CHANGES NO PARESTHESIAS OR MOTOR DEFICITS NO NAUSEA/VOMITING HAS CHRONIC COUGH, NO DIFFERENT THAN NORMAL STATES SHE HAD TEMP OF 100.2 LAST NIGHT--BUT WAS NORMAL ALL DAY--SHE ALSO CHECKS HER TEMPERATURE NO LESS THAN 4-5 TIMES A DAY EVERY DAY. STATES "IT'S ALWAYS ALL OVER THE PLACE" SHE STATES SHE HAS LOST 20# SINCE FEBRUARY 24--BUT HAD GAINED 5# BEFORE THAT SHE ALSO WEIGHS HERSELF NO LESS THAN TWICE A DAY EVERY DAY. PT HAS HISTORY OF CAD AND NH WITH STENTS X 4 PLUS ANGIOPLASTIES, SHE USED TO SEE DR. ESQUIVEL, BUT SHE WAS DISMISSED FROM THE PRACTICE FOR UNKNOWN REASONS--A COUPLE OF YEARS AGO SHE HAS NEW PT APPOINTMENT WITH DR. GARCÍA IN [place]. SHE HAS SEEN HIM WHEN SHE WAS IN HOSPITAL FOR CARDIOLOGY CONSULTS ONLY. SHE HAS ALSO HAD MULTIPLE RENAL ARTERY STENTS BILATERALLY PT ALSO HAS HISTORY OF ATRIAL FIBRILLATION--SHE IS ON ASPIRIN AND PLAVIX SHE ALSO HAS HISTORY OF CHF SHE HAS DIABETES AND IS ON ORAL MEDICATIONS PT HAS HAD COVID VACCINE X 3, NO FLU VACCINE FOR THIS SEASON PCP: DR. CARVAJAL IN [place] Allergies and Home Medications Allergies Coded Allergies: atorvastatin calcium (Unverified Allergy, Unknown, 07/27/16) cefdinir (Verified Allergy, Unknown, 09/01/17) codeine (Unverified Allergy, Unknown, 07/27/16) doxycycline (Verified Allergy, Unknown, 09/01/17) escitalopram oxalate (Unverified Allergy, Unknown, 07/27/16) niacin (Unverified Allergy, Unknown, 07/27/16) oxycodone (Verified Allergy, Unknown, 09/01/17) simvastatin (Unverified Allergy, Unknown, 07/27/16) tramadol (Unverified Allergy, Unknown, 07/27/16) Patient Home Medication List Home Medication List Reviewed: Yes ALPRAZolam (ALPRAZolam) 0.25 Mg Tablet, 0.25 MG PO DAILY PRN for ANXIETY, (Reported) Entered as Reported by: BINA TSE on 02/22/23 0859 Acetaminophen (Tylenol Extra Strength) 500 Mg Tablet, 500-1,000 MG PO Q6H PRN for PAIN-MILD (1-4), (Reported) Entered as Reported by: LINDA HESS on 10/07/20 1538 Albuterol Sulfate (Albuterol Sulfate) 2.5 Mg/0.5 Ml Vial.neb, 2.5 MG INH Q6H PRN for SHORTNESS OF BREATH, (Reported) Entered as Reported by: LINDA HESS on 09/22/21 1028 Albuterol Sulfate (Proventil Hfa) 6.7 Gm Hfa.aer.ad, 2 PUFF PO Q6H PRN for SHORTNESS OF BREATH, (Reported) Entered as Reported by: BINA TSE on 02/22/23 0859 Allopurinol (Allopurinol) 100 Mg Tablet, 100 MG PO DAILY, (Reported) Entered as Reported by: BINA TSE on 02/22/23 0859 Amlodipine Besylate (Amlodipine Besylate) 5 Mg Tablet, 5 MG PO DAILY, (Reported) Entered as Reported by: BINA TSE on 02/22/23 0859 Amoxicillin/Potassium Clav (Amox Tr-K Clv 500-125 mg Tab) 500 Mg-125 Mg Tablet, 1 EACH PO BID, (Reported) Entered as Reported by: THALIA ROSAS on 03/17/23 1457 Aspirin (Aspirin EC) 81 Mg Tablet.dr, 81 MG PO DAILY, (Reported) Entered as Reported by: LINDA HESS on 10/07/20 1538 Bisoprolol Fumarate (Bisoprolol Fumarate) 10 Mg Tablet, 10 MG PO HS, (Reported) Entered as Reported by: Mary Figueroa on 02/20/23 1136 Clopidogrel Bisulfate (Clopidogrel) 75 Mg Tablet, 75 MG PO DAILY, (Reported) Entered as Reported by: LINDA HESS on 10/07/20 153 Colchicine (Colchicine) 0.6 Mg Tablet, 0.6 MG PO DAILY PRN for GOUT PAIN, (Reported) Entered as Reported by: BINA TSE on 02/22/23 0859 Doxazosin Mesylate (Doxazosin Mesylate) 2 Mg Tablet, 2 MG PO DAILY, (Reported) Entered as Reported by: Mary Figueroa on 02/20/23 1136 Doxazosin Mesylate (Doxazosin Mesylate) 4 Mg Tablet, 4 MG PO HS, (Reported) Entered as Reported by: Mary Figueroa on 02/20/23 1136 Gabapentin (Neurontin) 300 Mg Capsule, 300 MG PO TID, (Reported) Entered as Reported by: LINDA HESS on 10/07/20 1538 Glimepiride (Glimepiride) 4 Mg Tablet, 4 MG PO DAILY PRN for HYPERGLYCEMIA, (Reported) Entered as Reported by: Mary Figueroa on 02/20/23 1136 Isosorbide Mononitrate (Isosorbide Mononitrate ER) 120 Mg Tab.er.24h, 120 MG PO HS, (Reported) Entered as Reported by: Mary Figueroa on 02/20/23 1136 Losartan Potassium (Losartan Potassium) 50 Mg Tablet, 50 MG PO BID, (Reported) Entered as Reported by: LINDA HESS on 09/22/21 1020 Pantoprazole Sodium (Pantoprazole Sodium) 40 Mg Tablet.dr, 40 MG PO DAILY, (Reported) Entered as Reported by: TERESA BATES on 10/04/18 0912 Review of Systems Review of Systems Constitutional: see HPI EENTM: no symptoms reported Respiratory: see HPI Cardiovascular: see HPI Gastrointestinal: no symptoms reported Genitourinary: no symptoms reported Musculoskeletal: no symptoms reported Skin: no symptoms reported Psychiatric/Neurological: No Symptoms Reported Hematologic/Lymphatic: No Symptoms Reported Immunological/Allergic: no symptoms reported Past Wxwlvgz-Pdwpnq-Zkwsoq Hx Patient Social History Tobacco Use?: Yes Tobacco type used: Cigarettes Smoking Status: Current Everyday Smoker Use of E-Cig and/or Vaping dev: No Substance use?: No Alcohol Use?: No Immunizations Up To Date Tetanus Booster (TDap): Less than 5yrs PED Vaccines UTD: No First/Initial COVID19 Vaccinat: 09/02/2020 Second COVID19 Vaccination Willis: 09/26/2020 Third COVID19 Vaccination Date: 2021 Seasonal Allergies Seasonal Allergies: No Past Medical History Surgery/Hospitalization HX: CARDIAC CATHS--STENTS X 4 IN HEART, LEFT RENAL ARTERY STENTS X 3, RIGHT RENAL ARTERY STENTS X 2, CHF, CKD, LEUKOCYTOSIS, COPD Surgeries: Yes (RENAL STENTS, NECK FUSION, DXLS) Appendectomy, Bladder Surgery, Coronary Stent, Gallbladder, Hysterectomy, Orthopedic, Tonsillectomy, Vascular Surgery Respiratory: Yes Sleep Apnea, COPD Currently Using CPAP: Yes Cardiac: Yes (CHF, CARDIAC STENTS X 4 + ANGIOPLASTIES; MULT BILAT RENAL ARTERY STENTS) Atrial Fibrillation, Chronic Edema/Swelling, Coronary Artery Disease, Heart Attack, High Cholesterol, Hypertension, Peripheral Vascular Neurological: Yes Headaches /Migraines, Neuropathy Reproductive Disorders: Yes (HYST/OVARIES INTACT; OVARIAN CYST REMOVED 01/2023) Female Reproductive Disorders: Ovarian Cyst 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 History: Hysterectomy, Menopausal Sexually Transmitted Disease: No HIV/AIDS: No Genitourinary: Yes (CHRONIC INCONTINENCE; RENAL ARTERY STENOSIS) Renal Failure Gastrointestinal: Yes Gastroesophageal Reflux, Diverticulosis, Hemorrhoids, Chronic Diarrhea, Polyps, Hiatal Hernia Musculoskeletal: Yes (CERVICAL STENOSIS/CHRONIC NECK PAIN ) Degenerate Disk Disease, Fibromyalgia, Chronic Back Pain Endocrine: Yes (history of thyroid nodules) Adrenal Disease, Diabetes, Non-Insulin dep HEENT: Yes Loss of Vision: Bilateral Hearing Impairment: Hard of Hearing Cancer: No Psychosocial: No Integumentary: No Blood Disorders: Yes (ANEMIA; MYELOPROLIFERATIVE DISORDER) Adverse Reaction/Blood Tranf: No Family Medical History Heart Disease, Cancer, CAD Over 55 Years Old, Stroke SOCIAL HISTORY: -SMOKES AT LEAST 1 PPD -ETOH --OCCASIONAL USE -DRUGS--DENIES USE PAST SURGICAL HISTORY: -DIAGNOSTIC LAPAROSCOPY 01/[address] CANELA --RIGHT OVARIAN CYSTECTOMY -HYSTERECTOMY, WITH BOTH OVARIES INTACT -MULTIPLE CARDIAC CATHS, WITH STENTS X 4, AND ANGIOPLASTIES -LEFT RENAL ARTERY STENTS X 3 -RIGHT RENAL ARTERY STENTS X 2 -CHOLECYSTECTOMY -APPENDECTOMY -BLADDER SURGERY -ORTHOPEDIC SURGERY--C-SPINE FUSION -TONSILLECTOMY CAD: - H/o cor stents (LAD and diag) with Dr Whitley. - Cardiac cath of October 16, 2019: Coronary artery disease consisting primarily of 70% in-stent restenosis of the left anterior descending (fractional flow reserve 0.8). To this, successful balloon angioplasty was carried out. The left anterior descending has approximately 50% bifurcation stenosis. The left circumflex artery has a 50% stenosis in its proximal to mid portion and 70% stenosis in its mid to distal portion and fractional flow reserve across a combination of these lesions is 0.89, indicating hemodynamic insignificance. Right coronary artery is dominant and has a patent stent in its distal portion. The right coronary artery has mild to moderate diffuse disease. Mildly elevated left ventricular end-diastolic pressure. - MPI of 04/02/20: no ischemia or infarction, LVEF 64% - MPI of 11/18/20: no ischemia or infarct, LVEF 62% - Echo of 11/16/20: LVEF 55-65%, mild MR and trivial AI, PASP 35-45 mmHg - Echo on 09/22/21: LVEF 55-60%, PASP 30 -35 mmHg - MPI on 09/23/21: no ischemia or infarct Renal artery stenosis - H/o bilateral renal artery stents with Dr Whitley. Mod bilat renal artery stenoses on renal a angio of 03/09/16 (Dr Vasquez) - Renal artery duplex on 06-25-21 at [facility] by Dr. Carrillo showed Renal arteries and veins are patent bilat. Patent stents bilat in the prox segments of the renal arteries with no evidence of flow acceleration to suggest hemodynamically signif stenosis. No high grade stenosis -EGD/COLONOSCOPY 03/24/[address] CANELA: FINDINGS: Reflux esophagitis, [place] between grade B and C, moderate size hiatal hernia 3 cm in size, severe gastritis, mild duodenitis. Mild chronic stage II external and internal hemorrhoids, moderate to severe sigmoid diverticulosis. Physical Exam Vital Signs Vital Signs - First Documented 04/09/23 02:43 Temp 36.7 Pulse 73 Resp 20 B/P (MAP) 197/95 (129) Pulse Ox 97 O2 Delivery Room Air Capillary Refill : Height, Weight, BMI Height: 5'2.00" Weight: 166lbs. 6.0oz. 75.889097iu; 28.21 BMI Method:Stated General Appearance: No Apparent Distress, WD/WN, Other (DOES NOT APPEAR ILL OR TO BE IN ANY DISCOMFORT OR DISTRESS) HEENT: PERRL/EOMI, Other (MULTIPLE MISSING TEETH) Neck: Normal Inspection; No JVD Respiratory: Normal Breath Sounds, No Accessory Muscle Use, No Respiratory Distress Cardiovascular: Regular Rate, Rhythm, No Edema, No JVD, No Murmur, Normal Peripheral Pulses Gastrointestinal: Non Tender, Soft Extremity: Normal Capillary Refill, Normal Inspection, No Pedal Edema Neurologic/Psychiatric: Alert, Oriented x3, No Motor/Sensory Deficits, Normal Mood/Affect, 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 Norm as Tested Skin: Normal Color, Warm/Dry Progress/Results/Core Measures Suspected Sepsis SIRS Temperature: Pulse: Respiratory Rate: Laboratory Tests 04/09/23 02:55: White Blood Count 14.4H Blood Pressure / Mean: Laboratory Tests 04/09/23 02:55: Creatinine 1.25, INR Comment 1.0, Platelet Count 412H, Total Bilirubin 0.3 Results/Orders Lab Results Laboratory Tests Test 04/09/23 02:55 04/09/23 02:57 Range/Units White Blood Count 14.4 H 4.3-11.0 10^3/uL Red Blood Count 3.80 3.80-5.11 10^6/uL Hemoglobin 11.3 L 11.5-16.0 g/dL Hematocrit 37 35-52 % Mean Corpuscular Volume 97 80-99 fL Mean Corpuscular Hemoglobin 30 25-34 pg Mean Corpuscular Hemoglobin Concent 31 L 32-36 g/dL Red Cell Distribution Width 16.7 H 10.0-14.5 % Platelet Count 412 H 130-400 10^3/uL Mean Platelet Volume 10.2 9.0-12.2 fL Immature Granulocyte % (Auto) 1 % Neutrophils (%) (Auto) 79 H 42-75 % Lymphocytes (%) (Auto) 12 12-44 % Monocytes (%) (Auto) 4 0-12 % Eosinophils (%) (Auto) 4 0-10 % Basophils (%) (Auto) 1 0-10 % Neutrophils # (Auto) 11.4 H 1.8-7.8 10^3/uL Lymphocytes # (Auto) 1.7 1.0-4.0 10^3/uL Monocytes # (Auto) 0.6 0.0-1.0 10^3/uL Eosinophils # (Auto) 0.5 H 0.0-0.3 10^3/uL Basophils # (Auto) 0.1 0.0-0.1 10^3/uL Immature Granulocyte # (Auto) 0.1 0.0-0.1 10^3/uL Neutrophils % (Manual) 80 % Lymphocytes % (Manual) 11 % Monocytes % (Manual) 5 % Eosinophils % (Manual) 4 % Polychromasia SLIGHT Prothrombin Time 13.6 12.2-14.7 SEC INR Comment 1.0 0.8-1.4 Activated Partial Thromboplast Time 38 H 24-35 SEC Sodium Level 143 135-145 MMOL/L Potassium Level 3.7 3.6-5.0 MMOL/L Chloride Level 112 H 98-107 MMOL/L Carbon Dioxide Level 19 L 21-32 MMOL/L Anion Gap 12 5-14 MMOL/L Blood Urea Nitrogen 20 H 7-18 MG/DL Creatinine 1.25 0.60-1.30 MG/DL Estimat Glomerular Filtration Rate 44 BUN/Creatinine Ratio 16 Glucose Level 163 H 70-105 MG/DL Calcium Level 9.3 8.5-10.1 MG/DL Corrected Calcium 9.3 8.5-10.1 MG/DL Magnesium Level 1.8 1.6-2.4 MG/DL Total Bilirubin 0.3 0.1-1.0 MG/DL Aspartate Amino Transf (AST/SGOT) 13 5-34 U/L Alanine Aminotransferase (ALT/SGPT) 7 0-55 U/L Alkaline Phosphatase 86 40-136 U/L Troponin I < 0.028 <0.028 NG/ML B-Type Natriuretic Peptide 1211.4 H <100.0 PG/ML Total Protein 7.2 6.4-8.2 GM/DL Albumin 4.0 3.2-4.5 GM/DL TSH [place] Testing 1.67 0.35-4.94 UIU/ML Influenza Type A (RT-PCR) Not Detected Not Detecte Influenza Type B (RT-PCR) Not Detected Not Detecte SARS-CoV-2 RNA (RT-PCR) Not Detected Not Detecte My Orders Orders - DARIA HAGAN DO Ed Iv/Invasive Line Start (04/09/23 02:48) Ekg Tracing (04/09/23 02:48) O2 (04/09/23 02:48) Monitor-Rhythm Ecg Trace Only (04/09/23 02:48) Bnp [place] (04/09/23 02:48) Cbc And Automated Diff (04/09/23 02:48) Comprehensive Metabolic Panel (04/09/23 02:48) Magnesium (04/09/23 02:48) Protime With Inr (04/09/23 02:48) Partial Thromboplastin Time (04/09/23 02:48) Thyroid Analyzer (04/09/23 02:48) Troponin I [place] (04/09/23 02:48) Chest 1 View, Ap/Pa Only (04/09/23 02:48) Covid 19 Inhouse Test (04/09/23 02:48) Influenza A And B By Pcr (04/09/23 02:48) Hydralazine Injection (Hydralazine Injec (04/09/23 03:15) Manual Differential (04/09/23 02:55) Furosemide Injection (Furosemide Injec (04/09/23 04:00) Potassium Chloride (Tablet) (Potassium C (04/09/23 04:00) Medications Given in ED Current Medications Medications Dose Ordered Sig/Syl Route Start Time Stop Time Status Last Admin Dose Admin Furosemide 40 mg ONCE ONCE IVP 04/09/23 04:00 04/09/23 04:02 DC 04/09/23 03:59 40 MG Hydralazine HCl 10 mg ONCE ONCE IV 04/09/23 03:15 04/09/23 03:17 DC 04/09/23 03:08 10 MG Potassium Chloride 20 meq ONCE ONCE PO 04/09/23 04:00 04/09/23 04:02 DC 04/09/23 03:59 20 MEQ Vital Signs/I&O 04/09/23 04/09/23 04/09/23 02:43 02:43 04:06 Temp 36.7 Pulse 73 65 Resp 20 20 B/P (MAP) 197/95 (129) 156/68 Pulse Ox 97 98 O2 Delivery Room Air Room Air Room Air Capillary Refill : Progress Note : Progress Note VITALS ON ARRIVAL: TEMP 36.7=98.0, HR 73, RR 20, BP 197/95, O2 SAT 97% ON ROOM AIR GIVEN: -HYDRALAZINE -LASIX -KCL LABS: -CBC WITH WBC 14.4, HGB 11.3, PLT 412,000 -CMP WITH NA 143, K 3.7, BUN 20, CR 1.25, GLU 163 -MG 1.9 -TROPONIN NEGATIVE -BNP 1211 -TSH 1.67 -PT/PTT/INR UNREMARKABLE -COVID/FLU NEGATIVE EKG IS UNREMARKABLE CXR IS UNREMARKABLE, PENDING RADIOLOGIST REVIEW PT HAD NO SYMPTOMS OF ANY KIND DURING ER STAY BP DOWN TO 150'S/60'S WITH HYDRALAZINE. DISCUSSED TEST RESULTS, MEDICATIONS, NEED FOR FOLLOW UP AND RETURN PRECAUTIONS. REVIEWED PRIOR RECORDS, INCLUDING ER VISITS, ADMITS/H&P'S/CONSULTS/DISCHARGE SUMMARIES, TESTS/PROCEDURES ECG Initial ECG Impression Date: Apr 09, 2023 Initial ECG Impression Time: 03:06 Initial ECG Rate: 71 Initial ECG Rhythm: Normal Sinus (LVH) Initial ECG Intervals: Normal Initial ECG Comparisson: Unchanged (EXCEPT FOR AXIS CHANGE) Comment INTERPRETED BY ME Diagnostic Imaging Comments CXR--NO ACUTE PROCESS, PENDING RADIOLOGIST REVIEW Departure Impression Primary Impression: Uncontrolled hypertension Additional Impressions: Chronic CHF T2DM (type 2 diabetes mellitus) Disposition: 01 HOME, SELF-CARE Condition: Improved Departure-Patient Inst. Decision time for Depature: 03:50 Referrals: RAJWINDER CARVAJAL MD (PCP/Family) Primary Care Physician Patient Instructions: High Blood Pressure ED, DASH Diet Add. Discharge Instructions: CONTINUE YOUR REGULAR MEDICATIONS PRESCRIBED TAKE AMLODIPINE 5 MG TWICE A DAY EVERY DAY FOLLOW UP WITH DR. GARCÍA SCHEDULED All discharge instructions reviewed with patient and/or family. Voiced understanding. DARIA HAGAN DO Apr 09, 2023 03:03
[2023-04-09 03:11] LABS: BASOPHILS # (AUTO) 0.1 10^3/uL (0.0-0.1); BASOPHILS % (AUTO) 1 % (0-10); EOSINOPHILS # (AUTO) 0.5 10^3/uL (0.0-0.3); EOSINOPHILS % (AUTO) 4 % (0-10); HEMATOCRIT 37 % (35-52); HEMOGLOBIN 11.3 g/dL (11.5-16.0); LYMPHOCYTES # (AUTO) 1.7 10^3/uL (1.0-4.0); LYMPHOCYTES % (AUTO) 12 % (12-44); MEAN CORPUSCULAR HEMOGLOBIN 30 pg (25-34); MEAN CORPUSCULAR HGB CONC 31 g/dL (32-36); MEAN CORPUSCULAR VOLUME 97 fL (80-99); MEAN PLATELET VOLUME 10.2 fL (9.0-12.2); MONOCYTES # (AUTO) 0.6 10^3/uL (0.0-1.0); MONOCYTES % (AUTO) 4 % (0-12); NEUTROPHILS # (AUTO) 11.4 10^3/uL (1.8-7.8); NEUTROPHILS % (AUTO) 79 % (42-75); PLATELET COUNT 412 10^3/uL (130-400); WHITE BLOOD COUNT 14.4 10^3/uL (4.3-11.0)
[2023-04-09] MEDS ORDERED: hydrALAZINE INJECTION 20 MG/ML VIAL IV ONE (03:15)
[2023-04-09 03:16] LABS: PROTHROMBIN TIME PATIENT 13.6 SEC (12.2-14.7)
[2023-04-09 03:18] LABS: CHLORIDE 112 MMOL/L (98-107); POTASSIUM 3.7 MMOL/L (3.6-5.0); SODIUM 143 MMOL/L (135-145)
[2023-04-09 03:19] LABS: CALCIUM 9.3 MG/DL (8.5-10.1)
[2023-04-09 03:20] LABS: GLUCOSE 163 MG/DL (70-105); TOTAL PROTEIN 7.2 GM/DL (6.4-8.2)
[2023-04-09 03:21] LABS: CARBON DIOXIDE 19 MMOL/L (21-32)
[2023-04-09 03:22] LABS: BILIRUBIN,TOTAL 0.3 MG/DL (0.1-1.0)
[2023-04-09 03:23] LABS: ALKALINE PHOSPHATASE 86 U/L (40-136)
[2023-04-09 03:24] LABS: CREATININE SERUM 1.25 MG/DL (0.60-1.30); GFR ESTIMATED 44
[2023-04-09 03:25] LABS: BUN/CREATININE RATIO 16
[2023-04-09 03:26] LABS: ALANINE AMINOTRANSFERASE 7 U/L (0-55); MAGNESIUM 1.8 MG/DL (1.6-2.4)
[2023-04-09 03:36] LABS: EOSINOPHILS % (MANUAL) 4 %; LYMPHOCYTES % (MANUAL) 11 %; MONOCYTES % (MANUAL) 5 %; NEUTROPHILS % (MANUAL) 80 %; POLYCHROMASIA SLIGHT
[2023-04-09 03:47] LABS: TSH (THYROID ANALYZER) 1.67 UIU/ML (0.35-4.94)
[2023-04-09] MEDS ORDERED: FUROSEMIDE INJECTION 40 MG/4 ML VIAL IVP ONE (04:00)
[2023-04-09] MEDS ORDERED: POTASSIUM CHLORIDE 10 MEQ TABLET PO ONE (04:00)
[2023-04-09 04:06] VITALS: BP 156/68
--- NOTE | 2023-04-09 06:23 | Diagnostic Imaging Report ---
EXAMINATION: Chest 1 view HISTORY: DYSPNEA, HTN COMPARISON: 11/13/2021 FINDINGS: Heart size and pulmonary vasculature are normal. The lungs are clear without consolidation, pleural effusion, or pneumothorax. The osseous structures are intact. IMPRESSION: 1. No acute radiographic abnormality in the chest. 2. Agree with preliminary interpretation. Dictated by: Dictated on workstation # [id number]
== END 2023-04-09 04:06 | disposition home or self-care (01) ==
LOC: EDUNIT# 02:35 → ER 02:37
DX: I13.0 Hypertensive heart and chronic kidney disease with heart failure and stage 1 through stage 4 chronic kidney disease, or unspecified chronic kidney disease (principal); I50.9 Heart failure, unspecified; N18.9 Chronic kidney disease, unspecified; E11.22 Type 2 diabetes mellitus with diabetic chronic kidney disease; E11.40 Type 2 diabetes mellitus with diabetic neuropathy, unspecified; G47.30 Sleep apnea, unspecified; F17.210 Nicotine dependence, cigarettes, uncomplicated; Z95.5 Presence of coronary angioplasty implant and graft; Z99.81 Dependence on supplemental oxygen; Z20.822 Contact with and (suspected) exposure to COVID-19; Z79.899 Other long term (current) drug therapy
CPT/HCPCS: 36415; 71045; 80053; 83735; 83880; 84443; 84484; 85007; 85027; 85610; 85730; 87636; 93005; 93041

== ENCOUNTER 2023-04-12 12:13 | Outpatient (RCR) | payer MEDICARE ==
[2023-04-05 13:21] LABS: BASOPHILS # (AUTO) 0.1 10^3/uL (0.0-0.1); BASOPHILS % (AUTO) 1 % (0-10); EOSINOPHILS # (AUTO) 0.4 10^3/uL (0.0-0.3); EOSINOPHILS % (AUTO) 4 % (0-10); HEMATOCRIT 35 % (35-52); HEMOGLOBIN 10.7 g/dL (11.5-16.0); LYMPHOCYTES # (AUTO) 1.4 10^3/uL (1.0-4.0); LYMPHOCYTES % (AUTO) 12 % (12-44); MEAN CORPUSCULAR HEMOGLOBIN 30 pg (25-34); MEAN CORPUSCULAR HGB CONC 31 g/dL (32-36); MEAN CORPUSCULAR VOLUME 97 fL (80-99); MEAN PLATELET VOLUME 10.1 fL (9.0-12.2); MONOCYTES # (AUTO) 0.5 10^3/uL (0.0-1.0); MONOCYTES % (AUTO) 4 % (0-12); NEUTROPHILS # (AUTO) 9.6 10^3/uL (1.8-7.8); NEUTROPHILS % (AUTO) 80 % (42-75); PLATELET COUNT 356 10^3/uL (130-400)
[2023-04-05 13:41] LABS: ALBUMIN 3.8 GM/DL (3.2-4.5); BILIRUBIN,TOTAL 0.3 MG/DL (0.1-1.0); CALCIUM 9.2 MG/DL (8.5-10.1); CREATININE SERUM 1.25 MG/DL (0.60-1.30); POTASSIUM 3.5 MMOL/L (3.6-5.0); TOTAL PROTEIN 6.6 GM/DL (6.4-8.2)
== END 2023-04-27 | disposition home or self-care (01) ==
LOC: ONC 12:13
PROVIDERS: ATTEND Internal Medicine Hematology & Oncology
DX: D47.1 Chronic myeloproliferative disease (principal); D75.839 Thrombocytosis, unspecified; N81.5 Vaginal enterocele; I13.0 Hypertensive heart and chronic kidney disease with heart failure and stage 1 through stage 4 chronic kidney disease, or unspecified chronic kidney disease; N18.4 Chronic kidney disease, stage 4 (severe); I50.9 Heart failure, unspecified; J44.9 Chronic obstructive pulmonary disease, unspecified; E11.22 Type 2 diabetes mellitus with diabetic chronic kidney disease; D50.9 Iron deficiency anemia, unspecified; Z72.0 Tobacco use
CPT/HCPCS: 36415; 80053; 82728; 83540; 83550; 83615; 85025; 99214

== ENCOUNTER → 2023-04-28 | Outpatient (CLI) | payer MEDICARE ==
[2023-04-28] VITALS (9 sets, daily range): BP systolic 146–195; BP diastolic 64–82
[~2023-04-28] VITALS: Ht 152 cm; Wt 68.0 kg
[~2023-04-28] MED LIST changes: +HYDROcodone/ACETAMINOPHEN 5 MG/325 MG TABLET PO PRN; +LIDOCAINE 1% INJ 10 ML VIAL INJ ONE; +MIDAZOLAM INJ 2 MG/2 ML VIAL IVP ONE; +NS IV 1000 ML 1,000 ML IV STA; +fentaNYL INJECTION 100 MCG/2 ML VIAL IVP ONE
[2023-04-28 08:19] LABS: ABSOLUTE RETIC # 87 10e9/uL (24-90); BASOPHILS # (AUTO) 0.1 10^3/uL (0.0-0.1); BASOPHILS % (AUTO) 1 % (0-10); EOSINOPHILS # (AUTO) 0.4 10^3/uL (0.0-0.3); EOSINOPHILS % (AUTO) 3 % (0-10); HEMATOCRIT 37 % (35-52); HEMOGLOBIN 11.5 g/dL (11.5-16.0); LYMPHOCYTES # (AUTO) 1.6 10^3/uL (1.0-4.0); LYMPHOCYTES % (AUTO) 13 % (12-44); MEAN CORPUSCULAR HEMOGLOBIN 30 pg (25-34); MEAN CORPUSCULAR HGB CONC 31 g/dL (32-36); MEAN CORPUSCULAR VOLUME 98 fL (80-99); MEAN PLATELET VOLUME 10.4 fL (9.0-12.2); MONOCYTES # (AUTO) 0.6 10^3/uL (0.0-1.0); MONOCYTES % (AUTO) 5 % (0-12); NEUTROPHILS # (AUTO) 9.2 10^3/uL (1.8-7.8); NEUTROPHILS % (AUTO) 77 % (42-75); PLATELET COUNT 334 10^3/uL (130-400); RETICULOCYTE % 2.27 % (0.50-2.40); WHITE BLOOD COUNT 11.9 10^3/uL (4.3-11.0)
[2023-04-28 08:24] LABS: INR 1.1 (0.8-1.4); PROTHROMBIN TIME PATIENT 14.3 SEC (12.2-14.7)
[2023-04-28 09:07] LABS: BAND NEUTROPHILS 1 %; EOSINOPHILS % (MANUAL) 5 %; LYMPHOCYTES % (MANUAL) 10 %; MONOCYTES % (MANUAL) 7 %; NEUTROPHILS % (MANUAL) 77 %; POLYCHROMASIA SLIGHT
[2023-04-28 09:08] LABS: ANISOCYTOSIS SLIGHT; ELLIPT/OVALOCYTES SLIGHT; POIKILOCYTOSIS SLIGHT
--- NOTE | 2023-04-28 10:44 | Diagnostic Imaging Report ---
Indication: Chronic myeloproliferative disorder. Patient presents for CT but guided bone marrow aspiration and biopsy. Patient brought to CT suite placed on table in the prone position. Axial imaging through the pelvis was performed to evaluate appropriate entry site. Low back was then prepped and draped usual sterile fashion. Small amount of 1% lidocaine was utilized for local anesthesia. The procedure was performed utilizing conscious sedation with radiology nursing and constant monitoring. Patient was given a total of 50 mcg of fentanyl intravenously and 1 mg of Versed intravenously. Total procedure time is approximately 4 minutes. Bone marrow needle was advanced from a posterior approach and placed with its tip along the posterior aspect of the right iliac bone. The needle was advanced through the cortex into the marrow utilized the bone marrow drill. 2 bone marrow aspirates were then obtained. Next, the drill was utilized to obtain a bone marrow core biopsy. Needle was removed and hemostasis was obtained using manual compression. Patient tolerated the procedure well and left the department in stable condition. IMPRESSION: Successful CT-guided bone marrow aspiration and core biopsy utilizing conscious sedation. Pathology results are currently pending.. Dictated by: Dictated on workstation # [id number]
== END ==
LOC: SDC 07:41
PROVIDERS: ATTEND Internal Medicine Hematology & Oncology
DX: D75.89 Other specified diseases of blood and blood-forming organs (principal); D72.829 Elevated white blood cell count, unspecified; D72.0 Genetic anomalies of leukocytes; D75.839 Thrombocytosis, unspecified; I10 Essential (primary) hypertension; D47.1 Chronic myeloproliferative disease; F17.210 Nicotine dependence, cigarettes, uncomplicated
CPT/HCPCS: 36415; 38222; 77012; 85007; 85027; 85045; 85055; 85610; 85730; 88184; 88185; 88305; 88311; 88313; 99156

== ENCOUNTER 2023-05-10 13:10 | Outpatient (RCR) | payer MEDICARE ==
--- NOTE | 2023-04-28 10:44 | Pre-Op Note & Conscious Sedat ---
Pre-Operative Progress Note Date of Available H&P: Apr 28, 2023 Date H&P Reviewed: Apr 28, 2023 Time H&P Reviewed: 09:00 Pre-Op Diagnosis: myeloproliferative disorder Moderate Sedation PreProcedure Time 09:00 ASA Score 2 Airway Lungs Heart ASA score ASA 1: a normal healthy patient ASA 2: a patient with a mild systemic disease (mid diabetes, controlled hypertension, obesity ASA 3: a patient with a severe systemic disease that limits activity (angina, COPD, prior Myocardial infarction) ASA 4: a patient with an incapacitating disease that is a constant threat to life (CHF, renal failure) ASA 5: a moribund patient not expected to survive 24 hrs. (ruptured aneurysm) ASA 6: a declared brain- patient whose organs are being harvested. For emergent operations, add the letter E after the classification Mallampati Classification Grade 2 Sedation Plan Analgesia, Amnesia, Plan communicated to team members, Discussed options with patient/fam, Discussed risks with patient/fam The patient is an appropriate candidate to undergo the planned procedure, sedation, and anesthesia. The patient immediately re-assessed prior to indication. CINDY MEMBRENO MD Apr 28, 2023 10:44
[~2023-05-10 13:10] MED LIST changes: -HYDROcodone/ACETAMINOPHEN 5 MG/325 MG TABLET PO PRN; -LIDOCAINE 1% INJ 10 ML VIAL INJ ONE; -MIDAZOLAM INJ 2 MG/2 ML VIAL IVP ONE; -NS IV 1000 ML 1,000 ML IV STA; -fentaNYL INJECTION 100 MCG/2 ML VIAL IVP ONE
[2023-05-10 13:52] LABS: BASOPHILS # (AUTO) 0.1 10^3/uL (0.0-0.1); BASOPHILS % (AUTO) 1 % (0-10); EOSINOPHILS # (AUTO) 0.4 10^3/uL (0.0-0.3); EOSINOPHILS % (AUTO) 3 % (0-10); HEMATOCRIT 37 % (35-52); HEMOGLOBIN 11.3 g/dL (11.5-16.0); LYMPHOCYTES # (AUTO) 1.3 10^3/uL (1.0-4.0); LYMPHOCYTES % (AUTO) 11 % (12-44); MEAN CORPUSCULAR HEMOGLOBIN 30 pg (25-34); MEAN CORPUSCULAR HGB CONC 31 g/dL (32-36); MEAN CORPUSCULAR VOLUME 99 fL (80-99); MEAN PLATELET VOLUME 10.4 fL (9.0-12.2); MONOCYTES # (AUTO) 0.5 10^3/uL (0.0-1.0); MONOCYTES % (AUTO) 5 % (0-12); NEUTROPHILS # (AUTO) 9.1 10^3/uL (1.8-7.8); NEUTROPHILS % (AUTO) 80 % (42-75); PLATELET COUNT 338 10^3/uL (130-400); WHITE BLOOD COUNT 11.3 10^3/uL (4.3-11.0)
[2023-05-10 14:20] LABS: ALBUMIN 3.8 GM/DL (3.2-4.5); BILIRUBIN,TOTAL 0.3 MG/DL (0.1-1.0); CREATININE SERUM 1.19 MG/DL (0.60-1.30); POTASSIUM 3.5 MMOL/L (3.6-5.0); TOTAL PROTEIN 6.2 GM/DL (6.4-8.2)
== END 2023-05-27 | disposition home or self-care (01) ==
LOC: ONC 13:10
PROVIDERS: ATTEND Internal Medicine Hematology & Oncology
DX: D47.1 Chronic myeloproliferative disease (principal); D75.839 Thrombocytosis, unspecified; N18.4 Chronic kidney disease, stage 4 (severe); E11.22 Type 2 diabetes mellitus with diabetic chronic kidney disease; D50.9 Iron deficiency anemia, unspecified; Z72.0 Tobacco use
CPT/HCPCS: 36415; 80053; 82728; 83540; 83550; 83615; 85025